=== PATIENT | female | born 1985 | race Caucasian/White ===

== ENCOUNTER 2023-03-31 21:37 | Outpatient (REF) | payer OTHER, BC, SELFPAY ==
--- OUTSIDE RECORDS SUMMARY | 2023-04-01 10:15 | XMS_ITS | CCD ---
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 mass] 29.7 pg Normal 26.0-34.0 [facility] Comment on above: Order Comment: Speci men Type: BLOOD SPECIMEN Ordering Facility: [facility] Address: [address] [place] [address] Performed By: #### 5 7021-8 #### [facility] [place] [id number] [address] [place] [address] 71710 MCHC (RBC) [Mass/Vol] 34.2 g/dL Normal 30.5-36.0 [facility] Comment on above: Order Comment: Speci men Type: BLOOD SPECIMEN Ordering Facility: [facility] Address: [address] Performed By: #### 5 7021-8 #### [facility] CLIA [id number] [address] [place] [address] 32102 MCV (RBC) [Entitic vol] 86.8 fL Normal 80.0-100.0 [facility] Comment on above: Order Comment: Speci men Type: BLOOD SPECIMEN Ordering Facility: [facility] Address: [address] [place] [address] Performed By: #### 5 7021-8 #### [facility] CLIA [id number] [address] [place] [address] 19183 Monocytes (Bld) [#/Vol] 0.39 10*3/uL Normal <0.87 [facility] Comment on above: Order Comment: Speci men Type: BLOOD SPECIMEN Ordering Facility: [facility] Address: [address] [address] Performed By: #### 5 7021-8 #### [facility] CLIA [id number] [address] [place] [address] 70370 Monocytes/100 WBC (Bld) 4.9 % Normal [facility] Comment on above: Order Comment: Speci men Type: BLOOD SPECIMEN Ordering Facility: [facility] Address: [address] [address] Performed By: #### 5 7021-8 #### [facility] CLIA [id number] [address] [place] [address] 78552 Neutrophils (Bld) [#/Vol] 4.81 10*3/uL Normal 1.45-7.50 [facility] Comment on above: Order Comment: Speci men Type: BLOOD SPECIMEN Ordering Facility: [facility] Address: [address] [address] Performed By: #### 5 7021-8 #### [facility] CLIA [id number] [address] [place] [address] 02608 Neutrophils/100 WBC (Bld) 59.9 % Normal [facility] Comment on above: Order Comment: Speci men Type: BLOOD SPECIMEN Ordering Facility: [facility] Address: [address] [address] Performed By: #### 5 7021-8 #### [facility] CLIA [id number] [address] [place] [address] 63036 Nucleated RBC (Bld) [#/Vol] 10*3/uL Normal <0.01 [facility] Comment on above: Order Comment: Speci men Type: BLOOD SPECIMEN Ordering Facility: [facility] Address: [address] Performed By: #### 5 7021-8 #### [facility] CLIA [id number] [address] [place] [address] 97126 Nucleated RBC/100 WBC (Bld) [Ratio] 0.0 /100 WBC Normal [facility] Comment on above: Order Comment: Speci men Type: BLOOD SPECIMEN Ordering Facility: [facility] Address: [address] Performed By: #### 5 7021-8 #### [facility] CLIA [id number] [address] [place] [address] 43505 Platelet mean volume (Bld) [Entitic vol] 9.3 fL Normal 9.0-12.7 [facility] Comment on above: Order Comment: Speci men Type: BLOOD SPECIMEN Ordering Facility: [facility] Address: [address] Performed By: #### 5 7021-8 #### [facility] CLIA [id number] [address] [place] [address] 03920 Platelets (Bld) [#/Vol] 298 10*3/uL Normal 150-400 [facility] Comment on above: Order Comment: Speci men Type: BLOOD SPECIMEN Ordering Facility: [facility] Address: [address] Performed By: #### 5 7021-8 #### [facility] CLIA [id number] [address] [place] [address] RBC (Bld) [#/Vol] 5.08 10*6/uL Normal 3.90-5.20 [facility] Comment on above: Order Comment: Speci men Type: BLOOD SPECIMEN Ordering Facility: [facility] Address: [address] [place] [address] Performed By: #### 5 7021-8 #### [facility] CLIA [id number] [address] [place] [address] 07474 WBC (Bld) [#/Vol] 8.03 10*3/uL Normal 3.70-11.00 [facility] Comment on above: Order Comment: Speci men Type: BLOOD SPECIMEN Ordering Facility: [facility] Address: [address] [place] [address] Performed By: #### 5 7021-8 #### [facility] CLIA [id number] [address] [place] [address] 44300 Comprehensive metabolic 2000 panelon 12-18-2022 Albumin [Mass/Vol] 4.3 g/dL Normal 3.9-4.9 [facility] Comment on above: Order Comment: Speci men Type: BLOOD SPECIMENOrdering Facility: [facility] Address: [address] [place] [address] Performed By: #### 2 4323-8 ####[facility] [id number] [place] [address] ALP [Catalytic activity/Vol] 101 U/L Normal 34-123 [facility] Comment on above: Order Comment: Speci men Type: BLOOD SPECIMENOrdering Facility: [facility] Address: [address] [place] [address] Performed By: #### 2 4323-8 ####[facility] [id number] [place] [address] ALT [Catalytic activity/Vol] 14 U/L Normal 7-38 [facility] Comment on above: Order Comment: Speci men Type: BLOOD SPECIMENOrdering Facility: [facility] Address: [address] [address] Performed By: #### 2 4323-8 ####[facility] [id number] [place] [address] Anion gap [Moles/Vol] 10 mmol/L Normal 9-18 [facility] Comment on above: Order Comment: Speci men Type: BLOOD SPECIMENOrdering Facility: [facility] Address: [address] [place] [address] Performed By: #### 2 4323-8 ####[facility] [id number] [place] [address] AST [Catalytic activity/Vol] 15 U/L Normal 13-35 [facility] Comment on above: Order Comment: Speci men Type: BLOOD SPECIMENOrdering Facility: [facility] Address: [address] [place] [address] Performed By: #### 2 4323-8 ####[facility] [id number] [place] [address] Bilirubin [Mass/Vol] 0.4 mg/dL Normal 0.2-1.3 [facility] Comment on above: Order Comment: Speci men Type: BLOOD SPECIMENOrdering Facility: [facility] Address: [address] [address] Performed By: #### 2 4323-8 ####[facility] [id number] [place] [address] Calcium [Mass/Vol] 9.2 mg/dL Normal 8.5-10.2 [facility] Comment on above: Order Comment: Speci men Type: BLOOD SPECIMENOrdering Facility: [facility] Address: [address] [place] [address] Performed By: #### 2 4323-8 ####[facility] [id number] [place] [address] Chloride [Moles/Vol] 107 mmol/L High 97-105 [facility] Comment on above: Order Comment: Speci men Type: BLOOD SPECIMENOrdering Facility: [facility] Address: [address] [place] [address] Performed By: #### 2 4323-8 ####[facility] [id number] [place] [address] CO2 [Moles/Vol] 24 mmol/L Normal 22-30 [facility] Comment on above: Order Comment: Speci men Type: BLOOD SPECIMENOrdering Facility: [facility] Address: [address] [place] [address] Performed By: #### 2 4323-8 ####[facility] [id number] [place] [address] Creatinine [Mass/Vol] 0.81 mg/dL Normal 0.58-0.96 [facility] Comment on above: Order Comment: Speci men Type: BLOOD SPECIMENOrdering Facility: [facility] Address: [address] [place] [address] Performed By: #### 2 4323-8 ####[facility] [id number] [place] [address] Creatinine and Glomerular filtration rate.predicted panel (S/P/Bld) 95 mL/min/1.73m??? Normal >=60 [facility] Comment on above: Order Comment: Speci men Type: BLOOD SPECIMENOrdering Facility: [facility] Address: [address] [place] [address] Result Comment: Leora mated Glomerular Filtration Rate (eGFR) is calculated using the 2020 CKD-EPI creatinine equation. This equation utilizes serum creatinine, sex, and age as parameters. The creatinine assay has traceable calibration to isotope dilution-mass spectrometry. Refer to KDIGO guidelines for clinical interpretation. In patients with unstable renal function, e.g. those with acute kidney injury, the eGFR may not accurately reflect actual GFR. Performed By: #### 2 4323-8 ####[facility] [id number] [place] [address] Glucose [Mass/Vol] 85 mg/dL Normal 74-99 [facility] Comment on above: Order Comment: Speci men Type: BLOOD SPECIMENOrdering Facility: [facility] Address: [address] [place] [address] Result Comment: The [place] Diabetes Association (ADA) provides guidance for cutoff values for fasting glucose and random glucose. The ADA defines fasting as no caloric intake for at least 8 hours. Fasting plasma glucose results between 100 to 125 mg/dL indicate increased risk for diabetes (prediabetes). Fasting plasma glucose results greater than or equal to 126 mg/dL meet the criteria for diagnosis of diabetes. In the absence of unequivocal hyperglycemia, results should be confirmed by repeat testing. In a patient with classic symptoms of hyperglycemia or hyperglycemic crisis, random plasma glucose results greater than or equal to 200 mg/dL meet the criteria for diagnosis of diabetes. Reference: Standards of Medical Care in Diabetes 2016, [place] Diabetes Association. Diabetes Care. 2016.39(Suppl 1). Performed By: #### 2 4323-8 ####[facility] [id number] [place] [address] Potassium [Moles/Vol] 4.2 mmol/L Normal 3.7-5.1 [facility] Comment on above: Order Comment: Speci men Type: BLOOD SPECIMENOrdering Facility: [facility] Address: [address] [place] [address] Performed By: #### 2 4323-8 ####[facility] [id number] [place] [address] Protein [Mass/Vol] 6.9 g/dL Normal 6.3-8.0 [facility] Comment on above: Order Comment: Speci men Type: BLOOD SPECIMENOrdering Facility: [facility] Address: [address] [place] [address] Performed By: #### 2 4323-8 ####[facility] [id number] [place] [address] Sodium [Moles/Vol] 141 mmol/L Normal 136-144 [facility] Comment on above: Order Comment: Speci men Type: BLOOD SPECIMENOrdering Facility: [facility] Address: [address] [place] [address] Performed By: #### 2 4323-8 ####[facility] [id number] [place] [address] Urea nitrogen [Mass/Vol] 16 mg/dL Normal 7-21 [facility] Comment on above: Order Comment: Speci men Type: BLOOD SPECIMENOrdering Facility: [facility] Address: [address] [place] [address] Performed By: #### 2 4323-8 ####[facility] [id number] [place] [address] Ferritin SerPl-mCncon 2022 Ferritin [Mass/Vol] 541.0 ng/mL High 14.7-205.1 [facility] Comment on above: Order Comment: Speci men Type: BLOOD SPECIMENOrdering Facility: [facility] Address: [address] [place] [address] Performed By: #### 5 0190-8, 2276-4, 3016-3 ####[facility] [id number] [place] [address] [place]#### 84924-1 ####[facility] [id number] [address] LABCLIA [id number] [place] [address] Folate SerPl-mCncon 12-19-19 Folate [Mass/Vol] ng/mL Normal >4.7 [facility] Comment on above: Order Comment: Speci men Type: BLOOD SPECIMEN Ordering Facility: [facility] Address: [address] [place] [address] Result Comment: A re sult of > 20 ng/mL is not necessarily indicative of a pathologic or treatable condition: it reflects a limitation of the test methodology. Assay reference range: 4.8 to 24.2 ng/mL. Suitable for detection of folate deficiency. Reference: Folate III (Folate III) [package insert V 1.0 Serbian]. [employer], [place], [place]: February 2015. Performed By: #### 2 284-8, 2731-8, 2132-9 #### [facility] CLIA [id number] [address] [place] [address] [place] HbA1c (Bld)on 12-18-2022 Average glucose Estimated from glycated hemoglobin (Bld) [Mass/Vol] 82 mg/dL Normal [facility] Comment on above: Order Comment: Se retana Type: BLOOD SPECIMEN Ordering Facility: [facility] Address: [address] [place] [address] Result Comment: eAG: (Estimated average glucose) is a calculated value from HgbA1c and is digital media representative of the average blood glucose level in the last 2-3 month period. Performed By: #### 5 5454-3 #### [facility] CLIA [id number] [address] [place] [address] [place] HbA1c (Bld) [Mass fraction] 4.5 % Normal 4.3-5.6 [facility] Comment on above: Order Comment: Se retana Type: BLOOD SPECIMEN Ordering Facility: [facility] Address: [address] [place] [address] Result Comment: [place] Diabetes Association guidelines indicate that patients with HgbA1c in the range 5.7-6.4% are at increased risk for development of diabetes, and intervention by lifestyle modification may be beneficial. HgbA1c greater or equal to 6.5% is considered diagnostic of diabetes. Performed By: #### 5 5454-3 #### [facility] CLIA [id number] [address] [place] [address] [place] Insulin SerPl-aCncon 023 Insulin Qn 5.7 u[IU]/mL Normal 3.0-25.0 [facility] Comment on above: Order Comment: Speci men Type: BLOOD SPECIMEN Ordering Facility: [facility] Address: [address] [place] [address] Performed By: #### 2 0448-7 #### [facility] CLIA [id number] [address] [place] [address] [place] Iron and Iron binding capaci ty panelon 12-18-2022 Iron [Mass/Vol] 157 ug/dL Normal 41-186 [facility] Comment on above: Order Comment: Speci men Type: BLOOD SPECIMENOrdering Facility: [facility] Address: [address] Performed By: #### 5 0190-8, 6-4, 3016-3 ####[facility] [id number] [place] [address] [place]#### 94540-5 ####[facility] [id number] [place] [id number] [facility]CLIA [id number] [place] [address] Iron binding capacity [Mass/Vol] 297 ug/dL Normal 232-386 [facility] Comment on above: Order Comment: Speci men Type: BLOOD SPECIMENOrdering Facility: [facility] Address: [address] [place] [address] Performed By: #### 5 0190-8, 6-4, 3016-3 ####[facility] [id number] [place] [address] [place]#### 30355-0 ####[facility] [id number] [place] [id number] [facility]CLIA [id number] [place] [address] Iron/TIBC [Molar ratio] 52.9 % Normal 15.0-57.0 [facility] Comment on above: Order Comment: Speci men Type: BLOOD SPECIMENOrdering Facility: [facility] Address: [address] [place], [place] [address] Performed By: #### 5 0190-8, 6-4, 3016-3 ####[facility] [id number] [place] [address] [place]#### 90742-2 ####[facility] [id number] [address] LABCLIA [id number] [place] [address] Lipid 1996 panelon 3 Cholesterol [Mass/Vol] 200 mg/dL High <200 [facility] Comment on above: Order Comment: Speci men Type: BLOOD SPECIMENOrdering Facility: [facility] Address: [address] [place], [place] [address] Result Comment: <200 mg/dL, Desirable 200-239 mg/dL, Borderline high >239 mg/dL, High Performed By: #### 5 0190-8, 2275-4, 6-3 ####[facility] [id number] [place] [id number] [place]#### 67254-7 ####[facility] [id number] [place] [id number] [facility]CLIA [id number] [place] [address] Cholesterol in HDL [Mass/Vol] 45 mg/dL Normal >39 [facility] Comment on above: Order Comment: Speci men Type: BLOOD SPECIMENOrdering Facility: [facility] Address: [address] [place] [address] Result Comment: 40-5 9 mg/dL, Acceptable >59 mg/dL, High: Negative risk factor for coronary heart disease <40 mg/dL, Low: Positive risk factor for coronary heart disease Performed By: #### 5 0190-8, 6-4, 6-3 ####[facility] [id number] [address] [address] [place]#### 12407-4 ####[facility] [id number] [place] [id number] [facility] LABCLIA [id number] [place] [address] Cholesterol in LDL [Mass/Vol] 140 mg/dL High <100 [facility] Comment on above: Order Comment: Speci men Type: BLOOD SPECIMENOrdering Facility: [facility] Address: [address] [place], [place] [address] Result Comment: <100 mg/dL, Optimal 100-129 mg/dL, Near optimal/above optimal 130-159 mg/dL, Borderline high 160-189 mg/dL, High >189 mg/dL, Very high Secondary prevention optimal LDL Cholesterol levels are recommended to be < 70 mg/dL Performed By: #### 5 0190-8, 6-4, 6-3 ####[facility] [id number] [place] [id number] [place]#### 19380-6 ####[facility] [id number] [place] [id number] [facility] LABCLIA [id number] [place] [address] Cholesterol in LDL/Cholesterol in HDL [Mass ratio] 3.11 {ratio} High <2.54 [facility] Comment on above: Order Comment: Speci men Type: BLOOD SPECIMENOrdering Facility: [facility] Address: [address] [place], [place] [address] Result Comment: Refe josece: 1. National Cholesterol Education Program ATP III Guideline At-A-Glance Quick Desk Reference: National Heart, Lung, and Blood [place]. National Institutes of Health. 2001: NIH Publication No. 01-3305. 2. An International Atherosclerosis Society position paper: global recommendations for the management of dyslipidemia: executive summary, Atherosclerosis. 2014: 232(2):410-413. Performed By: #### 5 0190-8, 2276-4, 3016-3 ####[facility] [id number] [address] [place]#### 92304-2 ####[facility]IA [id number] [address] LABCLIA [id number] [place] [address] Cholesterol in VLDL [Mass/Vol] 15 mg/dL Normal <30 [facility] Comment on above: Order Comment: Speci men Type: BLOOD SPECIMENOrdering Facility: [facility] Address: [address] [place], [place] [address] Performed By: #### 5 0190-8, 6-4, 6-3 ####[facility] [id number] [address] [place]#### 12142-5 ####[facility]IA [id number] [address] LABCLIA [id number] [place] [address] Cholesterol non HDL [Mass/Vol] 155 mg/dL High <130 [facility] Comment on above: Order Comment: Speci men Type: BLOOD SPECIMENOrdering Facility: [facility] Address: [address] [place] [address] Result Comment: <130 mg/dL, Optimal 130-159 mg/dL, Near optimal/above optimal 160-189 mg/dL, Borderline high 190-219 mg/dL, High >219 mg/dL, Very high Secondary prevention optimal non HDL Cholesterol levels are recommended to be <100 mg/dL Performed By: #### 5 0190-8, 6-4, 6-3 ####[facility]IA [id number] [address] [address] [place]#### 43185-8 ####[facility]IA [id number] [address] [facility] LABCLIA [id number] [place] [address] Cholesterol.total/ Cholesterol in HDL [Mass ratio] 4.44 {ratio} Normal <5.10 [facility] Comment on above: Order Comment: Speci men Type: BLOOD SPECIMENOrdering Facility: [facility] Address: [address] [place] [address] Performed By: #### 5 0190-8, 2275-, 3015-3 ####[facility]CLIA [id number] [place] [address] [place]#### 90185-4 ####[facility]IA [id number] [address] [facility] LABCLIA [id number] [place] [address] FASTING TIME 12 hrs Normal [facility] Comment on above: Order Comment: Speci men Type: BLOOD SPECIMENOrdering Facility: [facility] Address: [address] [place] [address] Performed By: #### 5 0190-8, 2275-4, 6-3 ####[facility]IA [id number] [address] [address] [place]#### 58984-0 ####[facility] [id number] [address] [facility] LABCLIA [id number] [place] [address] Triglyceride [Mass/Vol] 74 mg/dL Normal <150 [facility] Comment on above: Order Comment: Speci men Type: BLOOD SPECIMENOrdering Facility: [facility] Address: [address] [place], [place] [address] Result Comment: <150 mg/dL, Normal 150-199 mg/dL, Borderline high 200-499 mg/dL, High >499 mg/dL, Very high Performed By: #### 5 0190-8, 2276-4, 3016-3 ####[facility]CLIA [id number] [place] [address] [place]#### 57148-9 ####[facility]CLIA [id number] [address] LABCLIA [id number] [place] [address] PTH-Intact SerPl-mCncon 09-0 Parathyrin.intact [Mass/Vol] 26 pg/mL Normal 15-65 [facility] Comment on above: Order Comment: Speci men Type: BLOOD SPECIMEN Ordering Facility: [facility] Address: [address] [place] [address] Performed By: #### 2 284-8, 2731-8, 2132-9 #### [facility] CLIA [id number] [address] [place] [address] [place] TSH SerPl-aCncon 12-18-2022 TSH Qn 1.200 m[IU]/L Normal 0.270-4.200 [facility] Comment on above: Order Comment: Speci men Type: BLOOD SPECIMENOrdering Facility: [facility] Address: [address] [place], [place] [address] Result Comment: If t he patient is , TSH reference range varies by gestational period: First Trimester (weeks 9-12): 0.180-2.990 mIU/L Second Trimester: 0.110-3.980 mIU/L Third Trimester: 0.480-4.710 mIU/L Liam Larson et al. A Practical Approach for the Verifications and Determination of Site- and Trimester-Specific Reference Intervals for Thyroid Function tests in . Thyroid, 2019:29:3:412-420. Pritesh Lemus, et al. 2017 Guidelines of the [place] [employer] for the Diagnosis and Management of Thyroid Disease during and the . Thyroid, 2017:27:3:315-389. Performed By: #### 5 0190-8, 2276-4, 3016-3 ####[facility] [id number] [address]#### [address]-1 ####[facility] [id number] [address] LABCLIA [id number] [place] [id number] VITAMIN B1 (THIAMINE), WHOLE BLOODon 12-18-2022 Thiamine (Bld) [Moles/Vol] 214.9 nmol/L High 84.3-213.3 [facility] Comment on above: Order Comment: Speci men Type: BLOOD SPECIMEN Ordering Facility: [facility] Address: [address] [place], [place] [id number] Result Comment: This assay measures the concentration of thiamine diphosphate (TDP), the primary active form of vitamin B1. Approximately 90 percent of vitamin B1 present in whole blood is TDP. Thiamine and thiamine monophosphate, which comprise the remaining 10 percent, are not measured. This test was developed and its performance characteristics determined by [facility] [place] ([facility]). It has not been cleared or approved by the FDA. [facility] is regulated under CLIA as qualified to perform high-complexity testing. This test is used for clinical purposes. It should not be regarded as investigational or for research. Performed By: #### B 1WB #### [facility] CLIA [id number] [place] Vit B12 SerPl-ncon 023 Cobalamin (Vitamin B12) [Mass/Vol] pg/mL High 232-1245 [facility] Comment on above: Order Comment: Speci men Type: BLOOD SPECIMEN Ordering Facility: [facility] Address: [address] [place], [place] [id number] Performed By: #### 2 284-8, 2731-8, 2132-9 #### [facility] CLIA [id number] [place] Coding Summaryon 11-17-2022 Coding Summary HTMLBase 64 PizuenccXTz0uCc+PGhlYW Q+XO1ZQJHsQ20ygIYukH4n J1KGBBdVBebeKUBPKGfZXo MipzNzRD2roKRgRIRv IC8+YX0yJEBnFfzluDTrb4 K4fHE7F88ges3cMOpltNJ7 MWTsTdFcbwfdb0xwiLy7PO cuNmluOyBt NHEknZ65TOB3qK43Xf82aA UgbOKzc5cdmWl2VvVzLNDo LGK0rOduTHceo8YkVNOsR4 5qfPRrv5D8 IZTfjJchtFYwHwGtoFQ5pL 7fATrcniynh6hobgwjJsm7 ma13aOBsd4D6vPP0D5Mzor T8JLPxiJUv GdqemOJJcA3naedox5uwrv ebLhIeUBJnWQq2HLm6RVFi tLjqFbFxKK76YXL7ATZzlo LnO6LvJMGl lXspPuL6g2G3Dm7LC3DESn ztV5DDPQVCSRdqrUH+PC90 xf16U7YhBnmiRow1OQJmEA T1gCY3vT6y CJOyAUipu4P3wHU7Y5Lswj Xqhd1vb3waBSCwXMplY61c tYQwp7N3ORGqtWR2ZNKcpN wdTzFjzB61 Oyc+HPGiyAyvb6XxLvwgg1 fxm0zgrGh8RkduIVMnzgPm wCkhRNI3d3AbEm7eUEVbrS H9sCS9yW0l McGjFzP1RExkB597OkSidW RnVzcwP86iZ3ExqFX+PHRy Dtv6VDFurVxyRN2bG9YpGU RpbmctbGVm lVieDS5pMIDvzebrJNXuxV 5lGLTtX3d0FeIsLnJ6XSij B4DxQEZiwvpzXl76dM7iSm MxDwT7YUez M8XoahG5XXXdfUWmHHjcSO E0Y92je5K1ASHdJXVrBWE3 eDP0qN6njSlrbswkhDEkuT sgdmVydGlj TIimFTulS632TEPugFphDw NvZGluZyBEYXRlOiAgMDgv MDgvMjAyMzwvdGQ+PHRkIH M1xGmhKZVp dGNmZVfrPz5ouHcgvSojJO 4rDGCkzorjHLOnoT7wAIGi rYQayQrpHQ2dJIUccramz8 30OqFyTUX7 PABxgQAnV5XclJ2lQxMdBR DjTYRmZ1EtsSTkUFosU839 AJcmPqA1NKSmumYbF7CbQB FsaWduOiB0 t2W3Aa7Cw1GljxsgZ8FbdZ TtHuXaNenzHUq2X4YjJbxb dHI+PM68OWFsSE01RXs6VY Q8aGqvODhr VTIrW3VxvV9tVvMgNQBmRA RkOyc+PHRhYmxlIHdpZHRo ZUkiWUWdDnUagHofIZ2wRr 9yZGVyLWNv fBnmyWUyQyKik3slATEtHD tqFC2vyVfeJ1XdhEW9GLYe j0p1Xa11R70mU5SpxHX+PG CppGQ4kAB5 dD3bSuLnGsY8JNsbD072Qt KpaSSvVaxag7wlw9qyfAi1 RqN0ATLhraTmtOudAGJ5a6 MsBc24G45i IHdpZHRoPSIxNSUiIHZhbG ffhk7dhZ0zFr9+PGNvbCB3 jYI7vS8kUmUsMnY9XHjnL4 49InRvcCIv Iggiw1qil7fmhLr8UtChYX ZlhbVbhVysVKA9u9VgVd49 I0BatNqtl8JmDkw6jz69fE Zmh0E8fCS4 H6HkQVZvgbpuiSOajSsjIR 7dSFPwjhofBKLjvF4fHKXb K4y5QqUaYbF8CUhbB3Lsvq U8FUEitPNc GBGibQPYbT2zbopoh2ksli ejIjVuDCIeTMa7ULj3CAFj nZfsIlTsWLK9DuI6IJD8gE MvdA0cqEii kpnerN6fPmf+NZM4aNYarI TBBN6sDzrtnCT+PHRkIHN0 aFgqKJrfGNWyyB1qQMTyN4 q7KyQaRkB9 RYodV9KvflK6MBSzmDCdNP HwhESBdT0yfqcpd4tsxhcu PsKrPNLwLId0RLs5TFRsiV duOiBsZWZ0 DjZ3CYK8rZVdiL7vuHqqcz gyiL9jUou+QmlydGggRGF0 JQg4J0InShl6AIGuhXisZL 0ncGFkZGlu Qv3kyTkagWrqQG8pBCHnub aex119OuIco7cpDSZyiUNh OKqsQFH5N15mc1E1QRWsZW LvRYA5jKD3 bD6ggFygelnhyTCmiKhpdc DqcQwxBDvqQThsH070FWVg iGmmMyLjWTu7O3ElBbn8SW BatBekVX3k oCIfGEnrZo1usEhzwGdqBW 8uRENmwlhoe587EjKgj2ho WWQmzDEbJTkzRAI0J18yt0 E7XDOhROMw ZJM3mOE3mH8ywRofzijtzJ VmdDsgdmVydGljYWwtYWxp H935SCToyTqtSoIviNl8G3 IsPts7PPQe rXorMP2apIHtVPvmVr2cnL fyyXroKJ1bLCCxppfoi273 AxRzh7zuDMHdiCLaZOibVT W5D39pj5H3 HFOoMFLvUVE3pWO9eQ4qkC lnbjogbGVmdDsgdmVydGlj ZVdkISlvA747HSKbiYeoAo BhdGllbnQg UZlbLHi2V5JlWzmplUT+PC 76REZjPS93aDTgqMGja7qe jLa6VrGcPRDhMND2jQbsNW bbo0VdSFJz M97jyBFfg9V5ODSjxFozhT HyVgMarSK9cQ1nMJlnfzdw v8aoooapJucdv5ufvj18iD 30H74pBOcp ZHRoPSIzMCUiIHZhbGlnbj 7fyJ6yAg7+OAMxdQS5eKU1 hD5cYOOlQqE1ZJfbS835Jy RvcCIvPjxj l8bnr0wfwUi9JwM6HIMlmc IbuVjfYEK4i9MrKl72F95p IHdpZHRoPSIyMCUiIHZhbG bwko3zjA5d Ii8+RWNmtEH3rOX9pQ3uLq ZiWsL9EBafZ673VqMycCZu NtnuE57uY9TadWP+PHRyPj j7NONyiPul BV2krNJzRWxcWh4vRLF8Ta WmZpIrGFuiV1JyBAQqpvjp pqvpgAP2VQGgBOWtvL74Pz 9udDogMTBw oBJRwP9rlgsxc7stujigNj QvBOXcUUa9VJf2XYOyzLgh OwZnWNM0HvC4CQX9eOCpsV 1hbGlnbjog eM6yW2PaSXSwqcfzRx11gD 5jBoAlTfA7MUwhBuq+QkVO TyMPBIOGHLLBKJFRF4S1A0 DtNla7MPOv nOlpRC3ilXSlRAbwIr8uwW gxqXreWK0uHHSjshyoESOl wP3aDHBvaUGegNknYV3aRL Jqcnell956 VgWgDUK6WHVpgVRhP6TxdF 2wVxInXPCnRBZuA0CydMPb GNxnK419OUkjNqR9QCVsfu UjO0EeCHOx nTprBkW8u9D9Rh6bZk6nHL 8nNBk6FZ22SJ23bSKhj4S7 uMJ6G0JcJFAsrkqgsjcdqW I9GOAiGMRp zD08eWPrIArmTs6mt0Z4y4 41BYNlRMNosU79No8fkSlj QPAddMLTrF4ygrnha3qaod ogIzAwMDAw UNf7CVc8IVQowQydDpDoRR I1ZoU0PIP6aIDftB6tgXwr wpfnzF9sXxr+MzggWWVhcn E7W5ZcSxz9 VMCguCseEH3clFAvVKxfMe 9jlJpgmRerAG6qBMLauczc NJDafN9fFCHxtQEtuTckTM 4wNTBpbjtm a578WeGxXUB7ETEeaAIsV1 MqcY1iIeBlZRDfFCBlA9Xb dAUlSMcvS142NHmiJnO2ME YsiwSxP1Nr KNFmkHapMdB3l2S9Jm6ZCI 0ALAR1Z6LuNsv9MUUkiZct UL3uuFFxQQqrIl5eyAzblC jdEA4kKXSp daogTKNkkM5wFICyiYHxpX bxZO3xBLJojjnip813LsPt GVP0AFOhsTNuZ2OwaF8wWt AjMDAwMDAw S3SryDOgVHlgJ848LUohIp Z8CETxioFrE9AgGNOixQuo LqK7f0A0Kn4XqHSuT8JbZ7 m2V8UaZtny dHI+KV22AYNhQG55vVGzuD Ftd9losNk4OiZjFMRdMGD8 nVmcVAhwf6XyQTSaC29uoM Atk8G1SORi jFauvDDaAxXdfFX1xK1mOD pfeprih6dbdnpkNnthi5pl wp69cP14B46uWCctXIOdIX IzMCUiIHZh cIhzkq4keE7pKa6+PGNvbC K6yVU2jS3gBoMuSnC0BKpn U113UfNyvWGkOdlpk8kns6 eumOa3VsYj UONahmPqaCrqKXX3l0BoJx 72H98vMLntHAVrWLCqOMWg ZRCtlDcvye5rfB1yLu0+PC 4of8xkhu06 lW05eSM+VEEsBVF4kDjpGN ioZSDolI8dBRjzSeB1MYLi RmFjtN80sGQiGCanEt8xgE nvvAyzUJ2d HNXkdisiw816TgChh5ryCT DpjXLdSBorOZF3M24xc6D8 WXObPNWaJOV3gCK0oF6jqZ lnbjogbGVm dDsgdmVydGljYWwtYWxpZ2 20BYKmiRpoGpNgxJChR5pq ewTQWK9kRlvtrAU+PHRkIH D3eLmtEQco SWJxxX8zABBiA6t3DeGgOm E4JWysS7XqudE7IMUvqTSu QKUqeEJBhD5cveari1uqcx ogIzAwMDAw IFa1YPr5JQMlzCqhOqOxYM T4RkT8MEF0zXXpdZ2bcIgf fajgiX0hVae+RklOOjwvdG Q+PHRkIHN0 cUkyQAslHVMfzK3uGZNaI4 o1WbBiMkC6GLsaP0IaijZ7 CWQvkNKdFDWewQQMyA3fkv zdk7tpjpsv JcCvDPHqQDt8QEh5MXNlfX moJkOhCSP7RbH5LVS1iAFh rP1fjTiuurbneN8uTqa+TV JOOjwvdGQ+ BLBcJBL5jXxvOEoiKDGdyA 7aIDTnV6g9NiXgDeT6DTej S6RznrJ7YEPjoRVpJOXmlN GQjG9momws b2gedlkfMgFbTGOpPUv2VU p1ONNhhQjnInYhPUH7NqU4 VYX4tWVsqL3uwMveizqqrR 9wOyc+UGF5 ZGV1CO87ZO11K1RhGhelaR FibGU+PHRhYmxlIHdpZHRo WFwcJRUrJzEthBuaBQ9kAf 9yZGVyLWNv bGx (more content not included)... Normal [facility] .Auto Diff 1on 11-12-2022 Auto Jefferson % 10 % Normal -12 [facility] Comment on above: Performed By: #### 1 [id number], 1527231, 1481594, 30202501, [id number] #### [facility] (DEFAULT) [address] [place] [address] Baso Abs# 0.0 x10 Normal 0.0-0.2 [facility] Comment on above: Performed By: #### 1 [id number], 2365918, 8280195, 70162455, [id number] #### [facility] (DEFAULT) [address] [place] [address]8851 Basophils/100 WBC (Bld) 0.7 % Normal 0.2-2.0 [facility] Comment on above: Performed By: #### 1 [id number], 6167372, 5304928, 37686689, [id number] #### [facility] (DEFAULT) [address] [place] [address] Eos Abs# 0.1 x10 Normal 0.0-0.4 [facility] Comment on above: Performed By: #### 1 [id number], 1570020, 3642475, 06872807, [id number] #### [facility] (DEFAULT) [address] [place] [address]11 Eosinophils/100 WBC (Bld) 1.4 % Normal 0.9-4.0 [facility] Comment on above: Performed By: #### 1 [id number], 7175029, 4612793, 03431371, [id number] #### [facility] (DEFAULT) [address] [place] [address] Lymph Abs# 2.4 x10 Normal 1.3-2.9 [facility] Comment on above: Performed By: #### 1 [id number], 6208152, 2044788, 02661987, [id number] #### [facility] (DEFAULT) [address] [place] [address] 04670 Lymphocytes/100 WBC (Bld) 47 % Normal 14-48 [facility] Comment on above: Performed By: #### 1 [id number], 3241654, 8360334, 55526420, [id number] #### [facility] (DEFAULT) [address] [place] [address] 83615 Jefferson Abs# 0.5 x10 Normal 0.0-0.8 [facility] Comment on above: Performed By: #### 1 [id number], 4654158, 4800692, 50369037, [id number] #### [facility] (DEFAULT) [address] [place] [address] Neut Abs# 2.2 x10 Normal 1.5-9.2 [facility] Comment on above: Performed By: #### 1 [id number], 7680423, 1826605, 97108147, 3854097055 #### [facility] (DEFAULT) [address] [place] [address] 85321 Neutrophils/100 WBC (Bld) 41 % Low 44-88 [facility] Comment on above: Performed By: #### 1 [id number], 5271556, 1327123, 52067453, [id number] #### [facility] (DEFAULT) [address] [place] [address] 70813 CBC w/ Auto Diffon 3 Erythrocyte distribution width (RBC) [Ratio] 12.5 % Normal 11.5-15.0 [facility] Comment on above: Performed By: #### 1 [id number], 3312092, 0184535, 61949821, 6589604547 #### [facility] (DEFAULT) [address] [place] [address] Hematocrit (Bld) [Volume fraction] 44.2 % High 33.7-40.4 [facility] Comment on above: Performed By: #### 1 [id number], 6699290, 7966041, 30913954, 3748299245 #### [facility] (DEFAULT) [address] [place] [address] Hemoglobin (Bld) [Mass/Vol] 15.6 g/dL Normal 11.3-15.9 [facility] Comment on above: Performed By: #### 1 277356968, 0324346, 9744859, 88509449, [id number] #### [facility] (DEFAULT) [address] [place] [address] Man Diff? Auto Invalid Interpretation Code [facility] Comment on above: Performed By: #### 1 [id number], 9956947, 9378393, 17646075, [id number] #### [facility] (DEFAULT) [address] [place] [address] 36479 MCH (RBC) [Entitic mass] 31 pg Normal 24-34 [facility] Comment on above: Performed By: #### 1 [id number], 0780174, 1052559, 08949691, 3268077367 #### [facility] (DEFAULT) [address] [place] [address] MCHC (RBC) [Mass/Vol] 35 g/dL Normal 26-37 [facility] Comment on above: Performed By: #### 1 [id number], 7942787, 4763355, 86893456, [id number] #### [facility] (DEFAULT) [address] [place] [address] MCV (RBC) [Entitic vol] 88 fL Normal 81-100 [facility] Comment on above: Performed By: #### 1 [id number], 5577382, 1624366, 36711480, 9190937615 #### [facility] (DEFAULT) [address] [place] [address] Platelet 276 x10 Normal 138-427 [facility] Comment on above: Performed By: #### 1 [id number], 7517978, 6104773, 36391546, 7296227582 #### [facility] (DEFAULT) [address] [place] [address] Platelet mean volume (Bld) [Entitic vol] 8.0 fL Normal 6.3-10.2 [facility] Comment on above: Performed By: #### 1 [id number], 4257405, 4691203, 43410938, [id number] #### [facility] (DEFAULT) [address] [place] [address] RBC 5.05 x10 Normal 3.70-5.30 [facility] Comment on above: Performed By: #### 1 [id number], 6399302, 5686113, 84624050, 0122329986 #### [facility] (DEFAULT) [address] [place] [address] WBC 5.2 x10 Normal 3.5-10.5 [facility] Comment on above: Performed By: #### 1 [id number], 3660679, 9905037, 99956021, [id number] #### [facility] (DEFAULT) [address] [place] [address] 90743 CMP Standardon 11-12-2022 eGFR Non AA >60 Invalid Interpretation Code [facility] Comment on above: Performed By: #### 1 [id number], 9336215, 7863542, 81183345, [id number] #### [facility] (DEFAULT) [address] [place] [address] 69763 eGFR AA >60 Invalid Interpretation Code [facility] Comment on above: Performed By: #### 1 284691178, 6471587, 2745432, 36805318, [id number] #### [facility] (DEFAULT) [address] [place] [address] 13591 Albumin [Mass/Vol] 4.1 g/dL Normal 3.5-5.0 [facility] Comment on above: Performed By: #### 1 [id number], 1436650, 7802378, 65372702, 6698871244 #### [facility] (DEFAULT) [address] [place] [address] 79628 Albumin/Globulin [Mass ratio] 1.2 {ratio} Low 1.4-2.6 [facility] Comment on above: Performed By: #### 1 [id number], 2657858, 6172543, 93197957, 1008696590 #### [facility] (DEFAULT) [address] [place] [address] Alk Phos 89 IU/L Normal 32-91 [facility] Comment on above: Performed By: #### 1 [id number], 1913845, 1812520, 63499819, [id number] #### [facility] (DEFAULT) [address] [place] [address] 38313 ALT [Catalytic activity/Vol] 21.0 U/L Normal 14.0-54.0 [facility] Comment on above: Performed By: #### 1 [id number], 5077896, 5526008, 11365811, 2982996747 #### [facility] (DEFAULT) [address] [place] [address] 38510 Anion gap [Moles/Vol] 9.5 mmol/L Normal 5.0-19.0 [facility] Comment on above: Performed By: #### 1 [id number], 5347966, 0756206, 70996622, 6349836434 #### [facility] (DEFAULT) [address] [place] [address] 88204 AST [Catalytic activity/Vol] 21 U/L Normal 15-41 [facility] Comment on above: Performed By: #### 1 201669646, 5619517, 8041405, 62630318, 7766552555 #### [facility] (DEFAULT) [address] [place] [address] 66245 Bili Total 0.3 mg/dL Normal 0.3-1.2 [facility] Comment on above: Performed By: #### 1 512167332, 0637605, 5960125, 08154094, 4591073275 #### [facility] (DEFAULT) [address] [place] [address] 81203 Calcium [Mass/Vol] 8.6 mg/dL Low 8.9-10.3 [facility] Comment on above: Performed By: #### 1 162598555, 6028720, 1411208, 44318825, 6909132236 #### [facility] (DEFAULT) [address] [place] [address] 75525 Chloride [Moles/Vol] 108 mmol/L Normal 101-111 [facility] Comment on above: Performed By: #### 1 [id number], 3812992, 1852811, 14604894, 1243975056 #### [facility] (DEFAULT) [address] [place] [address] 73748 CO2 [Moles/Vol] 27 mmol/L Normal 21-32 [facility] Comment on above: Performed By: #### 1 [id number], 5196218, 1625532, 55225951, 8371193296 #### [facility] (DEFAULT) [address] [place] [address] 61294 Creatinine [Mass/Vol] 0.77 mg/dL Normal 0.60-1.30 [facility] Comment on above: Performed By: #### 1 [id number], 0868879, 9766322, 34134459, 4898526667 #### [facility] (DEFAULT) [address] [place] [address] 30921 Globulin (S) [Mass/Vol] 3.3 g/dL Normal 1.5-4.3 [facility] Comment on above: Performed By: #### 1 [id number], 4942999, 2755966, 93106372, [id number] #### [facility] (DEFAULT) [address] [place] [address] 34158 Glucose [Mass/Vol] 81.0 mg/dL Normal 74.0-118.0 [facility] Comment on above: Performed By: #### 1 388254133, 1164311, 8969206, 08926658, 5149042758 #### [facility] (DEFAULT) [address] [place] [address] 91647 Osmolality 280 mOsm/L Invalid Interpretation Code [facility] Comment on above: Performed By: #### 1 [id number], 7139459, 7767248, 43924811, [id number] #### [facility] (DEFAULT) [address] [place] [address] 99603 Potassium [Moles/Vol] 3.5 mmol/L Low 3.6-5.1 [facility] Comment on above: Performed By: #### 1 512965186, 1285878, 6119608, 31707407, [id number] #### [facility] (DEFAULT) [address] [place] [address] 59069 Protein [Mass/Vol] 7.4 g/dL Normal 6.5-8.1 [facility] Comment on above: Performed By: #### 1 [id number], 5442749, 6184212, 54035649, 3587483316 #### [facility] (DEFAULT) [address] [place] [address] 41508 Sodium [Moles/Vol] 141.0 mmol/L Normal 136.0-144.0 [facility] Comment on above: Performed By: #### 1 445015842, 2957666, 6936794, 10849288, 5675125198 #### [facility] (DEFAULT) [address] [place] [address] 90935 Urea nitrogen [Mass/Vol] 13 mg/dL Normal 8-26 [facility] Comment on above: Performed By: #### 1 [id number], 8233566, 8486018, 87547209, [id number] #### [facility] (DEFAULT) [address] [place] [address] 47585 Urea nitrogen/Creatinin e [Mass ratio] 16.8 mg/mg High 4.6-16.2 [facility] Comment on above: Performed By: #### 1 [id number], 1574186, 9215472, 68671838, [id number] #### [facility] (DEFAULT) [address] [place] [address] Abdomen/Pelvis w/o Contra petrona 11-12-2022 CT Abdomen/Pelvis w/o Contrast CLINICAL HISTORY: Right flank pain. History of urolithiasis. COMPARISON: None available. TECHNIQUE: Multiple contiguous axial images of the abdomen and pelvis were obtained without contrast. Multiplanar reconstructions were acquired at the CT console. All CT scans at this facility use dose modulation, iterative reconstruction, and/or weight based dosing when appropriate to reduce radiation dose to as low as reasonably achievable. FINDINGS: An approximately 9 x 4 mm distal right ureteral calculus is noted at the UVJ, with moderate upstream right hydronephrosis. A 2 punctate calculi are noted within the upper pole of the right kidney, and a few punctate to small nonobstructing calculi are noted predominantly within the mid to upper pole of the left kidney, measuring up to approximately 3 mm. Both unenhanced kidneys and the nearly decompressed urinary bladder are otherwise unremarkable. The gallbladder has been removed. Postoperative changes from previous gastric surgery are otherwise unremarkable. The unenhanced liver, pancreas, spleen, adrenal glands, unopacified great vessels, bowel, appendix, uterus, adnexa, and visualized lung bases are unremarkable. Mild rotary levoscoliosis of the thoracolumbar spine is present. IMPRESSION: MODERATELY OBSTRUCTING APPROXIMATELY 9 X 4 MM DISTAL RIGHT URETERAL CALCULUS. A FEW SMALL PREDOMINANTLY MID TO UPPER POLE LEFT RENAL CALCULI. Final Signed (Electronic Signature): Niharika George MD 11/12/22 5:16 pm Technologist: YULISA Mora [facility] ED Clinical Summaryon 2022 ED Clinical Summary [facility] - Emergency Department [address] [place] [id number] ED Clinical Summary PERSON INFORMATION Name: ALLAN OAKES Age: 37 Years Sex: FEMALE : 1985 MRN: Acct#: Visit Reason: Nausea; Flank pain; ABDOMINAL PAIN, COVID + Arrival: 11/12/2022 15:26:14 Discharge: 11/12/2022 17:50:00 LOS: 000 02:24 Check In: 11/12/2022 15:26:14 Checkout:11/12/2022 17:50:00 Address: [address] [place] [id number] PCP: MARIYA HUERTA PROVIDER INFORMATION Provider Role Assigned Unassigned Gloria Murdock [employer]UFA[employer]URING [employer] PROFESSOR Nurse 11/12/2022 15:38:33 Seymour Menon DO ED Provider 11/12/2022 15:40:25 VITALS INFORMATION Vital Sign Triage Latest Temperature Tympanic Temperature Temporal Artery Pulse Rate 89 bpm 89 bpm O2 Sat 98 % 98 % Respiratory Rate 16 br/min 16 br/min Blood Pressure /84 mmHg /84 mmHg MEDICAL INFORMATION Medications Given: Medication Dose Route ketorolac 30 mg IV Push ondansetron 4 mg IV Push Sodium Chloride 0.9% intravenous solution (sodium chloride 0.9% bolus) 1000 mL IV morphine (Morphine IV push) 4 mg IV Push Allergy Information: No known allergies PHYSICIAN DOCUMENTATION DISCHARGE INFORMATION: Discharge Disposition: Home Discharge Location: Home PATIENT EDUCATION INFORMATION Instructions: COVID-19 Frequently Asked Questions (CUSTOM) Follow-Up: With: Address: When: Refugio Sue MD [address] [place] [address] [place], [place] [id number] Within 1 to 2 weeks Comments: Drink plenty of fluids to stay well-hydrated and avoid recurrent kidney stones Follow-up with the urologist in the next 1 to 2 weeks to have your stone examined, please bring that to the office visit Use Tylenol 1000 mg and ibuprofen 800 mg every 8 hours as needed for pain Return if you develop worsening or changing symptoms including fevers, abdominal pain, inability urinate, nausea or vomiting DIAGNOSIS: 1:COVID; 2:Kidney stone; 3:Blood pressure elevated without history of HTN Patient Understands: Yes - Patient/family/caregiv er verbalizes understanding of instructions given Comment: [facility] ED Note-Nursingon 11-12-2022 ED Note-Nursing PT. was admitted to the ED via personal vehicle and walked back to room 9 with spouse. PT. C/O of right lower back pain and nausea that stared yesterday. PT. tested positive for COVID yesterday. Pt. states that she took one Tylenol and 2 Advil at 1200 with no relief. Pt. is A&OX 4. PT. has a steady gait. [facility] ED Patient Summaryon 023 ED Patient Summary [facility] - Emergency Department [address] [place] [id number] PATIENT DISCHARGE INSTRUCTIONS Patient Information Name: ALLAN OAKES Age: 37 Years Date of : 1985 Reason For Visit: Nausea; Flank pain; ABDOMINAL PAIN, COVID + Arrival Time: 11/12/2022 15:26:14 Primary Care Physician: MARIYA HUERTA Attending Physician: Seymour Menon DO Comment: Visit Diagnosis: Diagnoses This Visit Blood pressure elevated without history of HTN (R03.0) COVID (U07.1) Flank pain ([id number]) Kidney stone (N20.0) Nausea ([id number]) The Pharmacy at [facility] is open Wednesday through Wednesday from 9A to 6P and Wednesday and Wednesday from 9A to 5P Prescription Information: If you have been given a prescription for narcotics, seek immediate medical attention if you have any difficulty breathing or any sudden status changes such as confusion and sleepiness. If you or anyone you know is experiencing suicidal thoughts, mental health, alcohol and/or drug addiction problems; contact the [facility] 02/11 Crisis Hotline -Text 6WTMA hx 111658. If you received any narcotics, sedation, or any other medication that causes drowsiness for the next 24 hours, unless otherwise directed: ? Do not drive a car. ? Do not operate machinery such as power tools, lawn mowers, drills, sewing machines, or stoves ? Avoid alcoholic beverages and drugs for allergies, nerves, or sleep ? Do not make important personal or business decisions or sign any legal documents With: Address: When: Refugio Sue MD [address] [place] [address] [place] [address] Within 1 to 2 weeks Comments: Drink plenty of fluids to stay well-hydrated and avoid recurrent kidney stones Follow-up with the urologist in the next 1 to 2 weeks to have your stone examined, please bring that to the office visit Use Tylenol 1000 mg and ibuprofen 800 mg every 8 hours as needed for pain Return if you develop worsening or changing symptoms including fevers, abdominal pain, inability urinate, nausea or vomiting Medication Information: The exam and treatment you received today in the [facility] Emergency Department were for an urgent problem and are not intended as complete care. It is important for you to follow up with a doctor, nurse practitioner, or physician?s academic affairs assistant for ongoing care. If your symptoms become worse or you do not improve as expected and you are unable to reach your usual health care provider, you should return to the Emergency Department, we are available 24 hours a day. For those patients who have received Radiology results, the interpretation of your X-ray as given to you by our Emergency Department physician is only a preliminary report. The Radiologist will review your films and if there is a change in the diagnosis you will be notified by phone. Please make sure you have provided a working phone number so we can reach you if necessary. In the event that you had a lab culture while you were a patient in the Emergency Department, you will be notified by phone if there is a need to change your antibiotic. Please make sure you have provided a working phone number so we can reach you if necessary. [facility] Emergency Department has provided you with a complete list of medications post discharge. Please inform your primary montessori teacher/provider of your visit and for further instruction on these medications. Any specific questions regarding your chronic medications and dosages should be discussed with your primary care physician(s) and/or pharmacist. Medications to Continue That Have Not Changed Other Medications levothyroxine (levothyroxine 50 mcg (0.05 mg) oral tablet) 1 tab(s) Oral every day. phentermine (phentermine 37.5 mg oral tablet) TAKE 1 TABLET BY MOUTH ONCE DAILY. Additional medications on your home medication list not specifically addressed. Please contact the ordering physician if you have questions about these medications. ascorbic acid (Vitamin C) Oral every day. cholecalciferol (Vitamin D3) Oral every day. ethinyl estradiol-levonorgestr el (Ashlyna oral tablet) 1 tab(s) Oral every day. take 1 tablet by mouth once daily. multivitamin, (Classic ) 1 tab(s) Oral every day. zinc sulfate (Zinc) Oral every day. Visit Information Allergies: Substance Reaction Symptoms Type Comments No known allergies Drug Vital Signs: Vitals and Measurements this Visit (last charted value for your 11/12/2022 visit) Vital Signs This Visit Peripheral Pulse Rate: 89 bpm Respiratory Rate: 16 br/min Systolic Blood Pressure: 121 mmHg Diastolic Blood Pressure: 84 mmHg SpO2: 98 % Oxygen Therapy: Room air Measurements This Visit Height/Length Dosin.260 cm Height/Length Estimated: 175.260 cm Weight Dosin.630 kg Weight Estimated: 91.630 (more content not included)... Normal [facility] Extra Redon 11-12-2022 Tube Collected Yes Invalid Interpretation Code [facility] Comment on above: Performed By: #### 1 [id number], [id number], [id number] #### [facility] (DEFAULT) [address] [place] [address] 71978 Lipaseon 11-12-2022 Lipase Level 40.0 IU/L Normal 22.0-51.0 [facility] Comment on above: Performed By: #### 1 [id number], [id number], [id number], [id number], [id number] #### [facility] (DEFAULT) [address] [place] [address] 53580 Test Urine 1on U Preg Negative [facility] Comment on above: Performed By: #### 2 [id number], [id number], [id number] #### [facility] (DEFAULT) [address] [place] [address] 82041 U Preg Internal Control Pass [facility] Comment on above: Performed By: #### 2 [id number], [id number], [id number] #### [facility] (DEFAULT) [address] [place] [address] 24501 UA [id number] 11-12-2022 UA Bacteria 1+ [facility] Comment on above: Order Comment: Urina lysis Microscopic order added on by Discern Expert Rules system. Performed By: #### 2 [id number], [id number], [id number] #### [facility] (DEFAULT) [address] [place] [address] 01372 UA RBC >50 [facility] Comment on above: Order Comment: Urina lysis Microscopic order added on by Discern Expert Rules system. Performed By: #### 2 [id number], [id number], [id number] #### [facility] (DEFAULT) [address] [place] [address] UA Squam Epi Few Normal [facility] Comment on above: Order Comment: Urina lysis Microscopic order added on by CEINT Expert Rules system. Performed By: #### 2 [id number], [id number], [id number] #### [facility] (DEFAULT) [address] [place] [address] UA WBC 0-2 [facility] Comment on above: Order Comment: Urina lysis Microscopic order added on by CEINT Expert Rules system. Performed By: #### 2 [id number], [id number], [id number] #### [facility] (DEFAULT) [address] [place] [address] UA w Micro, if Ind Standardo n 11-12-2022 Color (U) Yellow [facility] Comment on above: Performed By: #### 2 [id number], [id number], [id number] #### [facility] (DEFAULT) [address] [place] [address] Glucose (U) [Mass/Vol] Negative [facility] Comment on above: Performed By: #### 2 [id number], [id number], [id number] #### [facility] (DEFAULT) [address] [place] [address] 11308 Ketones Ql (U) Negative [facility] Comment on above: Performed By: #### 2 [id number], [id number], [id number] #### [facility] (DEFAULT) [address] [place] [address] 83517 Micro? Indicated Invalid Interpretation Code [facility] Comment on above: Result Comment: Resu lt created by rule GL_MAGR_ADD_UA_MICRO Performed By: #### 2 [id number], [id number], [id number] #### [facility] (DEFAULT) [address] [place] [address] UA Bilirubin SMALL Abnormal [facility] Comment on above: Performed By: #### 2 [id number], [id number], [id number] #### [facility] (DEFAULT) [address] [place] [address] 44484 UA Blood LARGE Abnormal NEGATIVE [facility] Comment on above: Performed By: #### 2 [id number], [id number], [id number] #### [facility] (DEFAULT) [address] [place] [address] 75034 UA Clarity CLOUDY Abnormal CLEAR [facility] Comment on above: Performed By: #### 2 [id number], [id number], [id number] #### [facility] (DEFAULT) [address] [place] [address] 78295 UA Leuk Est Negative Normal NEGATIVE [facility] Comment on above: Performed By: #### 2 [id number], [id number], [id number] #### [facility] (DEFAULT) [address] [place] [address] 25069 UA Nitrite Negative Normal NEGATIVE [facility] Comment on above: Performed By: #### 2 [id number], [id number], [id number] #### [facility] (DEFAULT) [address] [place] [address] 46310 UA pH 5.5 Normal 5-8 [facility] Comment on above: Performed By: #### 2 [id number], [id number], [id number] #### [facility] (DEFAULT) [address] [place] [address] 06267 UA Protein 100 Abnormal NEGATIVE [facility] Comment on above: Performed By: #### 2 [id number], [id number], [id number] #### [facility] (DEFAULT) [address] [place] [address] 92246 UA Spec Grav >=1.030 Normal 1.001-1.035 [facility] Comment on above: Performed By: #### 2 [id number], [id number], [id number] #### [facility] (DEFAULT) [address] [place] [address] 46861 UA Urobilinogen 1.0 mg/dL Normal 0.2-1.0 [facility] Comment on above: Performed By: #### 2 [id number], [id number], [id number] #### [facility] (DEFAULT) [address] [place] [address] 57880 Urine Source Clean Catch Normal [facility] Comment on above: Performed By: #### 2 [id number], [id number], [id number] #### [facility] (DEFAULT) [address] [place] [address] Breakpoint UA Normal [facility] Comment on above: Performed By: #### 2 [id number], [id number], [id number] #### [facility] (DEFAULT) [address] [place] [address] 38013 PAP ACOG PANEL 2: 30 to 65on 06-06-2021 . . Normal [facility] Comment on above: Result Comment: Perf ormed at: WB Performed By: #### C BC #### [facility] [address] [place] [address] Monica Swathi Age Gdln ACOG Testing 30-65 Normal [facility] Comment on above: Performed By: #### C BC #### [facility] [address] [address] Monica Kauren DIAGNOSIS: Comment Normal [facility] Comment on above: Result Comment: NEGA TIVE FOR INTRAEPITHELIAL LESION OR MALIGNANCY. Performed at: WB Performed By: #### C BC #### [facility] [address] [address] Monica Echevarria HPV Aptima Negative Normal Negative [facility] Comment on above: Result Comment: This nucleic acid amplification test detects fourteen high-risk HPV types (16,18,31,33,35,39,45,51,52,56,58,59,66,68) without differentiation. Performed at: =G Performed By: #### C BC #### [facility] [address] [address] Monica Echevarria Methodology: Comment Normal [facility] Comment on above: Result Comment: This liquid based ThinPrep(R) pap test was screened with the use of an image guided system. Performed at: WB Performed By: #### C BC #### [facility] [address] [address] Monica Swathi Note: Comment Normal [facility] Comment on above: Result Comment: The Pap smear is a screening test designed to aid in the detection of premalignant and malignant conditions of the uterine cervix. It is not a diagnostic procedure and should not be used as the sole means of detecting cervical cancer. Both false-positive and false-negative reports do occur. . Performed at: WB Performed By: #### C BC #### [facility] [address] [address] Monicafrancisco Echevarria Performed by: Comment Normal [facility] Comment on above: Result Comment: [place] [employer] (ASCP) Performed at: WB Performed By: #### C BC #### [facility] [address] [place] [address] Monica Echevarria Specimen adequacy: Comment Normal [facility] Comment on above: Result Comment: Sati sfactory for evaluation. Endocervical and/or squamous metaplastic cells (endocervical component) are present. Performed at: WB Performed By: #### C BC #### [facility] [address] [place] [address] Monica Echevarria VAGINITIS/VAGINOSIS DNA PROB Gerardo 06-04-2021 Emilee species Negative Normal Negative [facility] Comment on above: Performed By: #### V AGINT #### [facility] [address] [place] [address] Dr. Tianna Mercado Gardnerella vaginalis Negative Normal Negative [facility] Comment on above: Performed By: #### V AGINT #### [facility] [address] [place] [address] Dr. Tianna Mercado Trichomonas vaginalis Negative Normal Negative [facility] Comment on above: Performed By: #### V AGINT #### [facility] [address] [place] [address] Dr. Tianna Mercado XR Chest 2 Views*on 05-19-19 22 XR Chest 2 Views* HISTORY: SOB, cough FINDINGS: No acute cardiac or pulmonary disease is identified. No worrisome mass lesions or infiltrates are seen. No pulmonary edema or pneumothorax is present. Cardiac silhouette size is normal. Skeletal structures are unremarkable. Mild thoracolumbar scoliosis. IMPRESSION: No acute disease. 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 Q - CULTURE,URINE,ROUTINEon 03-19-2021 CULTURE, URINE, ROUTINE SEE NOTE Abnormal [facility] Dried Ye[employer] Supervisor Comment on above: Order Comment: Fylet Testing performed at: [employer], [address] [facility], [address] [place], [address], Manager Flight: Arturo Escamilla MD [facility] Collection Date/Time: [facility] Results Received Date/Time: [facility] Reported Date/Time: Result Comment: CULT URE, URINE, ROUTINE Micro Number: [id number] Test Status: Final Specimen Source: Not given Specimen Quality: Adequate Result: 50,000-100,000 CFU/mL of Proteus mirabilis Comment: This organism may show imipenem resistance by mechanisms other than a carbapenemase. Result: 10,000-49,000 CFU/mL of Enterococcus faecalis P.mirabilis E.faecalis INT LIAN INT LIAN AMOX/CLAVULANATE S <=2 * AMPICILLIN S <=2 S <=2 AMP/SULBACTAM S <=2 * CEFAZOLIN NR <=4 2 * CEFEPIME S <=1 * CEFTRIAXONE S <=1 * CIPROFLOXACIN S <=0.25 S <=0.5 ERTAPENEM S <=0.5 * GENTAMICIN S <=1 * IMIPENEM I 2 * LEVOFLOXACIN S <=0.12 S 1 LINEZOLID * S 1 NITROFURANTOIN R 128 S <=16 PIP/TAZOBACTAM S <=4 * TETRACYCLINE * R >=16 TOBRAMYCIN S <=1 * TRIMETHOPRIM/SULFA S <=20 * VANCOMYCIN * S 1 S=Susceptible I=Intermediate R=Resistant * = Not Tested NR = Not Reported NN = See Therapy Comments THERAPY COMMENTS Note 1: For infections other than uncomplicated UTI caused by E. coli, K. pneumoniae or P. mirabilis: Cefazolin is resistant if LIAN > or = 8 mcg/mL. (Distinguishing susceptible versus intermediate for isolates with LIAN < or = 4 mcg/mL requires additional testing.) Note 2: For uncomplicated UTI caused by E. coli, K. pneumoniae or P. mirabilis: Cefazolin is susceptible if LIAN <32 mcg/mL and predicts susceptible to the oral agents cefaclor, cefdinir, cefpodoxime, cefprozil, cefuroxime, cephalexin and loracarbef. Performed By: #### 6 [id number] #### [facility] Default [address] [place] [address] CBC AUTO DIFFon 10-13-2020 BASO # 0.0 103/ul Normal 0.0-0.1 [facility] Comment on above: Performed By: #### C BC #### [facility] [address] [place] [address] Monica Swathi Basophils/100 WBC (Bld) 0.3 % Normal 0.2-2.0 [facility] Comment on above: Performed By: #### C BC #### [facility] [address] [place] [address] Monica Swathi EO # 0.1 103/ul Normal 0.0-0.7 [facility] Comment on above: Performed By: #### C BC #### [facility] [address] [place] [address] Monica Swathi Eosinophils/100 WBC (Bld) 1.0 % Normal 0.9-7.0 [facility] Comment on above: Performed By: #### C BC #### [facility] [address] [place] [address] Monica Swathi Erythrocyte distribution width (RBC) [Ratio] 13.4 % Normal 11.0-15.0 [facility] Comment on above: Performed By: #### C BC #### [facility] [address] [place], [place] [address] Monica Swathi Hematocrit (Bld) [Volume fraction] 31.4 % Critically low 36.0-48.0 [facility] Comment on above: Performed By: #### C BC #### [facility] [address] [place], [place] [address] Monica Swathi Hemoglobin (Bld) [Mass/Vol] 10.8 g/dL Critically low 12.0-16.0 [facility] Comment on above: Performed By: #### C BC #### [facility] [address] [place], [place] [address] Monica Swathi IG # 0.05 10e3/ul Critically high 0.00-0.03 [facility] Comment on above: Performed By: #### C BC #### [facility] [address] [place] [address] Monica Swathi IG % 0.4 % Normal 0.0-0.5 [facility] Comment on above: Performed By: #### C BC #### [facility] [address] [place] [address] Monica Swathi LYMPH # 2.8 103/ul Normal 1.2-3.8 [facility] Comment on above: Performed By: #### C BC #### [facility] [address] [place] [address] Monica Swathi Lymphocytes/100 WBC (Bld) 24.4 % Normal 20.5-60.0 [facility] Comment on above: Performed By: #### C BC #### [facility] [address] [place], [place] [address] Monica Swathi MANUAL DIFF REQ NO Normal [facility] Comment on above: Performed By: #### C BC #### [facility] [address] [place], [place] [id number] Monica Swathi MCH (RBC) [Entitic mass] 30.3 pg Normal 26.7-34.0 [facility] Comment on above: Performed By: #### C BC #### [facility] [address] [place] [address] Monica Swathi MCHC (RBC) [Mass/Vol] 34.4 g/dL Normal 29.9-35.2 [facility] Comment on above: Performed By: #### C BC #### [facility] [address] [place] [address] Monica Swathi MCV (RBC) [Entitic vol] 88.2 fL Normal 81.0-99.0 [facility] Comment on above: Performed By: #### C BC #### [facility] [address] [place], [place] [address] Monica Echevarria MONO # 0.8 103/ul Normal 0.3-0.8 [facility] Comment on above: Performed By: #### C BC #### [facility] [address] [place], [place] [address] Monica Echevarria Monocytes/100 WBC (Bld) 6.8 % Normal 1.7-12.0 [facility] Comment on above: Performed By: #### C BC #### [facility] [address] [place] [address] Monica Echevarria NEUT # 7.7 103/ul Critically high 1.4-6.[address] [facility] Comment on above: Performed By: #### C BC #### [facility] [address] [place] [address] Monica Echevarria Neutrophils/100 WBC (Bld) 67.1 % Normal 43.0-75.0 [facility] Comment on above: Performed By: #### C BC #### [facility] [address] [place], [place] [address] Monica Echevarria Platelet mean volume (Bld) [Entitic vol] 10.3 fL Normal 9.5-13.5 [facility] Comment on above: Performed By: #### C BC #### [facility] [address] [place], [place] [address] Monica Echevarria PLT 165 103/ul Normal 150-450 [facility] Comment on above: Performed By: #### C BC #### [facility] [address] [place], [place] [address] Monica Swathi RBC 3.56 106/ul Critically low 4.20-5.[address] [facility] Comment on above: Performed By: #### C BC #### [facility] [address] [place], [place] [address] Monica Swathi WBC 11.5 103/ul Critically high 4.0-11.0 [facility] Comment on above: Performed By: #### C BC #### [facility] [address] [place], [place] [address] Monica Echevarria ASYMPTOMATIC COVID-19 ANTIGE Non 10-11-2020 EUA Statement SEE BELOW Normal [facility] Comment on above: Result Comment: This test has not been FDA cleared or approved, but has been authorized by the FDA under an Emergency Use Authorization (EUA) for use by authorized laboratories certified under CLIA that meet the requirements to perform moderate or high complexity testing. This test has been authorized only for the detection of proteins from SARS-CoV-2, not for any other viruses or pathogens. The emergency use of this test is authorized for the duration of the declaration that circumstances exist justifying the authorization of emergency use of in vitro diagnostic tests for detection and/or diagnosis of Covid-19 under section 564(b)(1) of the Act, 21 U.S.C. 360bbb-3(b)(1), unless the declaration is terminated or authorization is revoked sooner. Performed By: #### C BC #### [facility] [address] [place] [address] Monica Echevarria SARS-CoV-2 (COVID-19) RNA ALBERTO+probe Ql (Unsp spec) Negative Normal NEGATIVE [facility] Comment on above: Result Comment: Nega tive results are presumptive. They do not preclude infection and should not be used as the sole basis for treatment decisions. Additional confirmatory testing by a molecular method should be considered. Performed By: #### C BC #### [facility] [address] [place] [address] Monica Echevarria CBC AUTO DIFFon 10-11-2020 BASO # 0.0 103/ul Normal 0.0-0.1 [facility] Comment on above: Performed By: #### C BC #### [facility] [address] [place], [place] [address] Monica Echevarria Basophils/100 WBC (Bld) 0.2 % Normal 0.2-2.0 [facility] Comment on above: Performed By: #### C BC #### [facility] [address] [place], [place] [address] Monica Swathi EO # 0.1 103/ul Normal 0.0-0.7 [facility] Comment on above: Performed By: #### C BC #### [facility] [address] [place] [address] Monica Swathi Eosinophils/100 WBC (Bld) 0.6 % Critically low 0.9-7.0 [facility] Comment on above: Performed By: #### C BC #### [facility] [address] [place] [address] Monica Swathi Erythrocyte distribution width (RBC) [Ratio] 13.6 % Normal 11.0-15.0 [facility] Comment on above: Performed By: #### C BC #### [facility] [address] [place] [address] Monica Swathi Hematocrit (Bld) [Volume fraction] 39.3 % Normal 36.0-48.0 [facility] Comment on above: Performed By: #### C BC #### [facility] [address] [place] [address] Monica Swathi Hemoglobin (Bld) [Mass/Vol] 13.6 g/dL Normal 12.0-16.0 [facility] Comment on above: Performed By: #### C BC #### [facility] [address] [place] [address] Monica Swathi IG # 0.05 10e3/ul Critically high 0.00-0.03 [facility] Comment on above: Performed By: #### C BC #### [facility] [address] [place] [address] Monica Swathi IG % 0.5 % Normal 0.0-0.5 [facility] Comment on above: Performed By: #### C BC #### [facility] [address] [place] [address] Monica Swathi LYMPH # 2.3 103/ul Normal 1.2-3.8 [facility] Comment on above: Performed By: #### C BC #### [facility] [address] [place] [address] Monica Swathi Lymphocytes/100 WBC (Bld) 24.6 % Normal 20.5-60.0 [facility] Comment on above: Performed By: #### C BC #### [facility] [address] [place], [place] [id number] Monicafrancisco Echevarria MANUAL DIFF REQ NO Normal [facility] Comment on above: Performed By: #### C BC #### [facility] [address] [place], [place] [id number] Monicafrancisco Echevarria MCH (RBC) [Entitic mass] 30.4 pg Normal 26.7-34.0 [facility] Comment on above: Performed By: #### C BC #### [facility] [address] [place] [address] Monicafrancisco Echevarria MCHC (RBC) [Mass/Vol] 34.6 g/dL Normal 29.9-35.2 [facility] Comment on above: Performed By: #### C BC #### [facility] [address] [place] [address] Monicafrancisco Kauren MCV (RBC) [Entitic vol] 87.9 fL Normal 81.0-99.0 [facility] Comment on above: Performed By: #### C BC #### [facility] [address] [place], [place] [id number] Monica Swathi MONO # 0.7 103/ul Normal 0.3-0.8 [facility] Comment on above: Performed By: #### C BC #### [facility] [address] [place] [address] Monicafrancisco Kauren Monocytes/100 WBC (Bld) 7.8 % Normal 1.7-12.0 [facility] Comment on above: Performed By: #### C BC #### [facility] [address] [place], [place] [id number] Monica Swathi NEUT # 6.3 103/ul Normal 1.4-6.5 [facility] Comment on above: Performed By: #### C BC #### [facility] [address] [place], [place] [id number] Monica Swathi Neutrophils/100 WBC (Bld) 66.3 % Normal 43.0-75.0 [facility] Comment on above: Performed By: #### C BC #### [facility] [address] [id number] Monicafrancisco Echevarria Platelet mean volume (Bld) [Entitic vol] 10.2 fL Normal 9.5-13.5 [facility] Comment on above: Performed By: #### C BC #### [facility] [address] [address] Monica Swathi PLT 205 103/ul Normal 150-450 [facility] Comment on above: Performed By: #### C BC #### [facility] [address] [address] Monica Swathi RBC 4.47 106/ul Normal 4.20-5.40 [facility] Comment on above: Performed By: #### C BC #### [facility] [address] [address] Monica Swathi WBC 9.5 103/ul Normal 4.0-11.0 [facility] Comment on above: Performed By: #### C BC #### [facility] [address] [place] [address] Monica Swathi DRUG SCREEN RAPID (URINE)on 10-11-2020 AMP Negative Normal NEGATIVE [facility] Comment on above: Performed By: #### D RUGRPD #### [facility] [address] [place] [address] Monica Swathi BAR Negative Normal NEGATIVE [facility] Comment on above: Performed By: #### D RUGRPD #### [facility] [address] [place] [address] Monica Swathi BUP Negative Normal NEGATIVE [facility] Comment on above: Performed By: #### D RUGRPD #### [facility] [address] [place], [place] [id number] Monica Swathi BZO Negative Normal NEGATIVE [facility] Comment on above: Performed By: #### D RUGRPD #### [facility] [address] [place] [address] Monica Swathi KHANH Negative Normal NEGATIVE [facility] Comment on above: Performed By: #### D RUGRPD #### [facility] [address] [place] [address] Monica Swathi CUT-OFFS SEE BELOW Normal [facility] Comment on above: Result Comment: AMP (Amphetamine): 500ng/mL, BAR (Barbituates): 200 ng/mL, BZO (Benzodiazepines): 150 ng/mL, BUP (Buprenorphine): 10 ng/mL, KHANH (Cocaine): 150 ng/mL, mAMP (Methamphetamine): 500 ng/mL, MTD (Methadone): 200 ng/mL, OPI (Opiates): 100 ng/mL, OXY (Oxycodone): 100 ng/mL, PCP (Phencyclidine): 25 ng/mL, PPX (Propoxyphene): 300 ng/mL, THC (Cannabinoids): 50 ng/mL, TCA (Trycyclic Antidepressants): 300 ng/mL Performed By: #### D RUGRPD #### [facility] [address] [place] [address] Monica Swathi DRUG CUT HEADER DRUG CLASS TEST SYST EM CUT-OFF CONCENTRATIONS ARE FOLLOWS: Normal [facility] Comment on above: Performed By: #### D RUGRPD #### [facility] [address] [place] [address] Monica Swathi mAMP Negative Normal NEGATIVE [facility] Comment on above: Performed By: #### D RUGRPD #### [facility] [address] [place] [address] Monica Swathi MTD Negative Normal NEGATIVE [facility] Comment on above: Performed By: #### D RUGRPD #### [facility] [address] [place] [address] Monica Swathi OPI Negative Normal NEGATIVE [facility] Comment on above: Performed By: #### D RUGRPD #### [facility] [address] [place] [address] Monica Swathi OXY Negative Normal NEGATIVE [facility] Comment on above: Performed By: #### D RUGRPD #### [facility] [address] [place] [address] Monica Swathi PCP Negative Normal NEGATIVE [facility] Comment on above: Performed By: #### D RUGRPD #### [facility] [address] [place] [address] Monica Echevarria PPX Negative Normal NEGATIVE [facility] Comment on above: Performed By: #### D RUGRPD #### [facility] [address] [place] [address] Monica Echevarria TCA Negative Normal NEGATIVE [facility] Comment on above: Performed By: #### D RUGRPD #### [facility] [address] [place] [address] Monica Echevarria THC Negative Normal NEGATIVE [facility] Comment on above: Performed By: #### D RUGRPD #### [facility] [address] [place] [address] Monica Echevarria TYPE AND SCREENon 10-11-2020 TYPE AND SCREEN Antibody Screen NEGATIVE Blood Bank Notes completed by jan ABO Rh Typing O Rh Positive Blood Bank Notes completed by jan Mora [facility] Comment on above: Performed By: #### C BC #### [facility] [address] [place] [address] Monica Echevarria US PREG BIOPHY W NON STRESSo n 10-11-2020 US PREG BIOPHY W NON STRESS EXAMINATION: US PREG BIOPHY W NON STRESS HISTORY: Gestational diabetes mellitus COMPARISON: No relevant comparison available. TECHNIQUE: Ultrasound biophysical profile was performed in the radiology department. non-reactive stress testing was performed by nursing staff in the birthing center. FINDINGS: BREATHING MOVEMENTS: 2.0 GROSS BODY MOVEMENTS: 2.0 TONE: 2.0 QUALITATIVE AMNIOTIC FLUID VOLUME: 0.0 PRESENTATION: Cephalic HEART RATE: 146.7 bpm AMNIOTIC FLUID VOLUME: 3.7 cm GESTATIONAL AGE: 37 weeks 4 days IMPRESSION: Total biophysical profile score: 6.0 Electronically authenticated by: NIHARIKA FUENTES Date: 2020-10-11 09:43 Normal [facility] UA (CLEAN/CATCH) CHOIR SINGER/MICRO I F IND.on 10-07-2020 Bilirubin Ql (U) Negative Normal NEGATIVE [facility] Comment on above: Performed By: #### U ACSIND, UMICRO #### [facility] [address] [place] [address] Monica Echevarria Clarity (U) CLEAR Normal CLEAR [facility] Comment on above: Performed By: #### U ACSNIGEL UMICRO #### [facility] [address] [address] Monica Swathi Color (U) LT. YELLOW Normal YELLOW [facility] Comment on above: Performed By: #### U ACSNIGEL UMICRO #### [facility] [address] [place] [address] Monica Swathi Glucose Ql (U) Negative Normal NEGATIVE [facility] Comment on above: Performed By: #### U ACSNIGEL UMICRO #### [facility] [address] [place] [address] Monica Swathi Hemoglobin Ql (U) MODERATE Abnormal NEGATIVE [facility] Comment on above: Performed By: #### U ACSNIGEL UMICRO #### [facility] [address] [place] [address] Monica Swathi Ketones Ql (U) Negative Normal NEGATIVE [facility] Comment on above: Performed By: #### U FELECIA YANCEYICRO #### [facility] [address] [place] [address] Monica Swathi LEUKOCYTES Negative Normal NEGATIVE [facility] Comment on above: Performed By: #### U FELECIA YANCEYICRO #### [facility] [address] [place] [address] Monica Swathi Nitrite Ql (U) Negative Normal NEGATIVE [facility] Comment on above: Performed By: #### U ACSFELECIA MANNINGICRO #### [facility] [address] [place] [address] Monica Swathi pH (U) 6.0 [pH] Normal 5-9 [facility] Comment on above: Performed By: #### U NAYE UMICRO #### [facility] [address] [place] [address] Monica Swathi SPEC GRAVITY <=1.005 Abnormal 1.005-<=1.025 [facility] Comment on above: Performed By: #### U ACSFELECIA MANNINGICRO #### [facility] [address] [place] [address] Monica Swathi UA PROTEIN Negative Normal NEGATIVE/ TRACE [facility] Comment on above: Performed By: #### U ACSNIGEL UMICRO #### [facility] [address] [place] [address] Monica Echevarria UR MICRO IND INDICATED Normal [facility] Comment on above: Performed By: #### U ACSNIGEL, UMICRO #### [facility] [address] [place] [address] Monica Echevarria Urobilinogen Qn (U) 0.2 {Joaquin'U}/dL Normal 0.2 - 1.0 [facility] Comment on above: Performed By: #### U ACSNIGEL UMICRO #### [facility] [address] [place] [address] Monica Echevarria URINE MICROSCOPIC ONLYon BACTERIA TRACE Abnormal NONE SEEN [facility] Comment on above: Performed By: #### U ACSNIGEL UMICRO #### [facility] [address] [place] [address] Monica Echevarria Bacteria identified Cx Nom (U) NOT INDICATED Normal [facility] Comment on above: Performed By: #### U ACSNIGEL UMICRO #### [facility] [address] [place] [address] Monica Echevarria CAST NONE SEEN Normal NONE SEEN [facility] Comment on above: Performed By: #### U ACSNIGEL, UMICRO #### [facility] [address] [place] [address] Monicafrancisco Echevarria Crystals LM Nom (Urine sed) NONE SEEN Normal NONE SEEN [facility] Comment on above: Performed By: #### U ACSNIGEL, UMICRO #### [facility] [address] [place] [address] Monicafrancisco Echevarria Epithelial cells LM Ql (Urine sed) RARE Normal NONE SEEN /RARE [facility] Comment on above: Performed By: #### U ACSNIGEL, UMICRO #### [facility] [address] [place] [address] Moniac Swathi MUCOUS NONE SEEN Normal NONE SEEN [facility] Comment on above: Performed By: #### U ACSNIGEL UMICRO #### [facility] [address] [place], [place] [address] Monica Echevarria RBC 2-5 Abnormal 0-2 [facility] Comment on above: Performed By: #### U MALIA YANCEY #### [facility] [address] [place], [place] [address] Monica Echevarria WBC NONE SEEN Normal NONE SEEN [facility] Comment on above: Performed By: #### U MALIA YANCEY #### [facility] [address] [place], [place] [address] Monica Echevarria US PREG BIOPHY W NON STRESSo n 10-07-2020 US PREG BIOPHY W NON STRESS EXAMINATION: US PREG BIOPHY W NON STRESS HISTORY: Gestational diabetes mellitus COMPARISON: No relevant comparison available. TECHNIQUE: Ultrasound biophysical profile was performed in the radiology department. non-reactive stress testing was performed by nursing staff in the birthing center. FINDINGS: BREATHING MOVEMENTS: 2.0 GROSS BODY MOVEMENTS: 2.0 TONE: 2.0 QUALITATIVE AMNIOTIC FLUID VOLUME: 2.0 PRESENTATION: CEPHALIC HEART RATE: 145.2 bpm AMNIOTIC FLUID VOLUME: 7.7 cm GESTATIONAL AGE: 36 weeks 4 days IMPRESSION: Total biophysical profile score: 8.0 Electronically authenticated by: NIHARIKA FUENTES Date: 2020-10-07 10:52 Normal [facility] US PREG GROWTHon 10-07-2020 US PREG GROWTH EXAMINATION: US PREG GROWTH HISTORY: Gestational diabetes mellitus COMPARISON: No relevant comparison available. FINDINGS: Heart Rate: 145.2 bpm Number: 1.0 Position: CEPHALIC Amniotic Fluid Volume: 7.7 cm Maximum Vertical Pocket: 4.0 cm BIOMETRY: BPD: 9.2 cm cm; 37 weeks 2 days HC: 35.3 cmcm; 41 weeks 2 days AC: 37.8 cm cm; 41 weeks 5 days FL: 7.1 cm cm; 36 weeks 4 days EFW: 3983.9 grams; greater than 97th percentile FL/AC: 18.9 FL/BPD: 77.7 HC/AC: 0.9 GESTATIONAL AGE: Age by EDC: 36 weeks 4 days EL by EDC: 10/28/2020 Age by US: 39 weeks, 2 days EL by US: 10/09/2020 IMPRESSION: 1. Single live intrauterine with growth detailed above. 2. Estimated weight is greater than 97th percentile. 3. Amniotic fluid volume is at the 5th percentile. Electronically authenticated by: NIHARIKA FUENTES Date: 2020-10-07 10:55 Normal [facility] GROUP B STREP CULTUREon 09-11 S. agalactiae Ag Ql (Unsp spec) Culture Observations: Group B Strep called to Kamila Jarrett, Dr Nathan's office 10/03/20 @[address] [place] [address] Isolate 1 Streptococcus agalactiae Moderate growth of ORGANISM 1 Streptococcus agalactiae ANTIBIOTIC M.I.C RX STATUS Benzylpenicillin <=0.06 S F Ampicillin <=0.25 S F Cefotaxime <=0.12 S F Ceftriaxone <=0.12 S F Levofloxacin 0.5 S F Inducible Clindamycin Resistance Pos POS F Erythromycin 4 R F Clindamycin <=0.25 R F Linezolid <=2 S F Vancomycin 0.5 S F Tetracycline 4 S F Normal [facility] Comment on above: Performed By: #### C BC #### [facility] [address] [place] [address] Monica Swathi UA (CLEAN/CATCH) CHOIR SINGER/MICRO I F IND.on 10-03-2020 Bilirubin Ql (U) Negative Normal NEGATIVE [facility] Comment on above: Performed By: #### U MICRO, UACSIND #### [facility] [address] [place] [address] Monica Swathi Clarity (U) CLEAR Normal CLEAR [facility] Comment on above: Performed By: #### U MICRO, UACSIND #### [facility] [address] [place] [address] Monica Swathi Color (U) LT. YELLOW Normal YELLOW [facility] Comment on above: Performed By: #### U MICRO, UACSIND #### [facility] [address] [place] [address] Monica Swathi Glucose Ql (U) Negative Normal NEGATIVE [facility] Comment on above: Performed By: #### U MICRO, UACSIND #### [facility] [address] [place], [place] [id number] Monica Swathi Hemoglobin Ql (U) TRACE-INTACT Abnormal NEGATIVE [facility] Comment on above: Performed By: #### U MICRO, UACSIND #### [facility] [address] [place] [address] Monica Swathi Ketones Ql (U) 15 mg/dl Abnormal NEGATIVE [facility] Comment on above: Performed By: #### U MICRO, UACSIND #### [facility] [address] [place] [address] Monica Swathi LEUKOCYTES Negative Normal NEGATIVE [facility] Comment on above: Performed By: #### U MICRO, UACSIND #### [facility] [address] [place] [address] Monica Swathi Nitrite Ql (U) Negative Normal NEGATIVE [facility] Comment on above: Performed By: #### U MICRO, UACSIND #### [facility] [address] [place] [address] Monica Swathi pH (U) 7.0 [pH] Normal 5-9 [facility] Comment on above: Performed By: #### U MICRO, UACSIND #### [facility] [address] [place] [address] Monica Echevarria SPEC GRAVITY 1.015 Normal 1.005-<=1.025 [facility] Comment on above: Performed By: #### U MICRO, UACSIND #### [facility] [address] [place] [address] Monica Swathi UA PROTEIN Negative Normal NEGATIVE/ TRACE [facility] Comment on above: Performed By: #### U MICRO, UACSIND #### [facility] [address] [place] [address] Monica Swathi UR MICRO IND INDICATED Normal [facility] Comment on above: Performed By: #### U MICRO, UACSIND #### [facility] [address] [place] [address] Monica Echevarria Urobilinogen Qn (U) 0.2 {Joaquin'U}/dL Normal 0.2 - 1.0 [facility] Comment on above: Performed By: #### U MICRO, UACSIND #### [facility] [address] [address] Monica Swathi URINE MICROSCOPIC ONLYon BACTERIA NONE SEEN Normal NONE SEEN [facility] Comment on above: Performed By: #### U MICRO, UACSIND #### [facility] [address] [place] [address] Monica Swathi Bacteria identified Cx Nom (U) NOT INDICATED Normal [facility] Comment on above: Performed By: #### U MICRO, UACSIND #### [facility] [address] [place] [address] Monica Swathi CAST NONE SEEN Normal NONE SEEN [facility] Comment on above: Performed By: #### U MICRO, UACSIND #### [facility] [address] [place] [address] Monica Swathi Crystals LM Nom (Urine sed) NONE SEEN Normal NONE SEEN [facility] Comment on above: Performed By: #### U MICRO, UACSIND #### [facility] [address] [place] [address] Monica Swathi Epithelial cells LM Ql (Urine sed) FEW Abnormal NONE SEEN /RARE [facility] Comment on above: Performed By: #### U MICRO, UACSIND #### [facility] [address] [place] [address] Monica Swathi MUCOUS NONE SEEN Normal NONE SEEN [facility] Comment on above: Performed By: #### U MICRO, UACSIND #### [facility] [address] [place] [address] Monica Swathi RBC 2-5 Abnormal 0-2 [facility] Comment on above: Performed By: #### U MICRO, UACSIND #### [facility] [address] [place] [address] Monica Swathi WBC NONE SEEN Normal NONE SEEN [facility] Comment on above: Performed By: #### U MICRO, UACSIND #### [facility] [address] [place] [address] Monica Swathi US PREG BIOPHY W NON STRESSo n 09-26-2020 US PREG BIOPHY W NON STRESS EXAMINATION: US PREG BIOPHY W NON STRESS HISTORY: Gestational diabetes mellitus COMPARISON: No relevant comparison available. TECHNIQUE: Ultrasound biophysical profile was performed in the radiology department. non-reactive stress testing was performed by nursing staff in the birthing center. FINDINGS: BREATHING MOVEMENTS: 2.0 GROSS BODY MOVEMENTS: 2.0 TONE: 2.0 QUALITATIVE AMNIOTIC FLUID VOLUME: 2.0 PRESENTATION: CEPHALIC HEART RATE: 138.2 bpm AMNIOTIC FLUID VOLUME: 10.4 cm GESTATIONAL AGE: 35 weeks 3 days IMPRESSION: Total biophysical profile score: 8.0 Electronically authenticated by: NIHARIKA FUENTES Date: 2020-09-26 10:21 Normal [facility] US PREG BIOPHY W NON STRESSo n 09-20-2020 US PREG BIOPHY W NON STRESS EXAMINATION: US PREG BIOPHY W NON STRESS HISTORY: Gestational diabetes mellitus COMPARISON: No relevant comparison available. TECHNIQUE: Ultrasound biophysical profile was performed in the radiology department. non-reactive stress testing was performed by nursing staff in the birthing center. FINDINGS: BREATHING MOVEMENTS: 2.0 GROSS BODY MOVEMENTS: 2.0 TONE: 2.0 QUALITATIVE AMNIOTIC FLUID VOLUME: 2.0 PRESENTATION: CEPHALIC HEART RATE: 139.9 bpm H.B./min AMNIOTIC FLUID VOLUME: 10.1 cm cm GESTATIONAL AGE: 34 weeks 4 days CONCLUSION: Total biophysical profile score: 8.0 Electronically authenticated by: BUTCH HOLLAND Date: 2020-09-20 15:08 Normal [facility] US PREG AMNIOTIC FLUID VOLUM Gerardo 09-17-2020 US PREG AMNIOTIC FLUID VOLUME EXAMINATION: US PREG AMNIOTIC FLUID VOLUME HISTORY: Oligohydramnios COMPARISON: No relevant comparison available. TECHNIQUE: Limited sonographic examination for amniotic fluid volume FINDINGS: position: Cephalic presentation, longitudinal lie Amniotic fluid volume: 10.5 cm, 5th-95th percentile: 7.2 - 27.8. Largest fluid pocket: 4.9 cm Placenta: Anterior. No retroplacental echogenic abnormality Heart rate: 158 BPM IMPRESSION: Normal amniotic fluid volume Electronically authenticated by: BUTCH HOLLAND Date: 2020-09-17 09:19 Normal [facility] US PREG BIOPHY W NON STRESSo n 09-13-2020 US PREG BIOPHY W NON STRESS EXAMINATION: US PREG BIOPHY W NON STRESS HISTORY: Gestational diabetes mellitus COMPARISON: No relevant comparison available. TECHNIQUE: Ultrasound biophysical profile was performed in the radiology department. non-reactive stress testing was performed by nursing staff in the birthing center. FINDINGS: BREATHING MOVEMENTS: 2.0 GROSS BODY MOVEMENTS: 2.0 TONE: 2.0 QUALITATIVE AMNIOTIC FLUID VOLUME: 2.0 PRESENTATION: Cephalic HEART RATE: 129.8 bpm AMNIOTIC FLUID VOLUME: 8.9 cm GESTATIONAL AGE: 33 weeks 4 days IMPRESSION: 1. Total biophysical profile score: 8.0 2. Amniotic fluid index is just above the 5th percentile. Electronically authenticated by: NIHARIKA FUENTES Date: 2020-09-13 13:44 Normal [facility] US PREG GROWTHon 09-10-2020 US PREG GROWTH EXAMINATION: US PREG GROWTH HISTORY: Gestational diabetes mellitus COMPARISON: No relevant comparison available. FINDINGS: Heart Rate: 144.4 bpm Amniotic Fluid Volume: 10.2 cm, largest pocket 2.8 cm Number: 1.0 Position: Cephalic presentation, longitudinal lie Maximum Vertical Pocket: 2.0 cm cm 2.7 cm cm 2.7 cm cm 2.8 cm cm BIOMETRY: BPD: 8.5 cm cm; 34 weeks 1 days; 85% HC: 31.3 cmcm; 35 weeks 1 days, 79% AC: 33.1 cm cm; 37 weeks 0 days, greater than 97% FL: 6.2 cm cm; 32 weeks 2 days; 30.6 % % EFW: 2655.4 grams, 5 lbs. 14 oz., greater than 97% FL/AC: 18.8 FL/BPD: 73.6 HC/AC: 0.9 GESTATIONAL AGE: Age by EDC: 32 weeks 4 days EL by EDC: 10/28/2020 Age by US: 34 weeks 5 days EL by US: 10/13/2020 IMPRESSION: Large for gestational age. Abdominal circumference and estimated weight greater than the 97th percentile Electronically authenticated by: BUTCH HOLLAND Date: 2020-09-10 09:41 Normal [facility] US PREG BIOPHY W NON STRESSo n 09-06-2020 US PREG BIOPHY W NON STRESS EXAMINATION: US PREG BIOPHY W NON STRESS HISTORY: Gestational diabetes mellitus COMPARISON: No relevant comparison available. TECHNIQUE: Ultrasound biophysical profile was performed in the radiology department. non-reactive stress testing was performed by nursing staff in the birthing center. FINDINGS: BREATHING MOVEMENTS: 2.0 GROSS BODY MOVEMENTS: 2.0 TONE: 2.0 QUALITATIVE AMNIOTIC FLUID VOLUME: 2.0 PRESENTATION: CEPHALIC HEART RATE: 144.4 bpm H.B./min AMNIOTIC FLUID VOLUME: 10.2 cm cm GESTATIONAL AGE: 32 weeks 4 days CONCLUSION: Total biophysical profile score: 8.0 Electronically authenticated by: BUTCH HOLLAND Date: 2020-09-06 20:20 Normal [facility] US KIDNEYSon 07-01-2020 US KIDNEYS EXAM: US KIDNEYS HISTORY: Pain in thoracic spine COMPARISON: None. TECHNIQUE: Grayscale and color imaging was performed. Right kidney measures 12.6 x 5.6 x 6.5 cm. Color-flow is noted. No hydronephrosis is noted. There is an 11 x 4 mm echogenic focus with shadowing in the mid to lower pole of the right kidney consistent with a nonobstructing calculus. Left kidney measures 11.4 x 6.8 x 6 cm. Color-flow is noted. No solid renal cortical masses or hydronephrosis is noted. The bladder appears normal. No masses are noted. No bladder wall thickening is noted. Bladder volume was 653 cc. Bilateral ureteral jets were noted. IMPRESSION: 1. Normal-appearing left kidney. 2. 10 mm nonobstructing right renal calculus. No hydronephrosis. 3. Normal-appearing bladder. Bilateral ureteral jets were noted. Electronically authenticated by: BUTCH CARMEN Date: 2020-07-01 09:57 Normal [facility] BUNon 06-27-2020 Urea nitrogen [Mass/Vol] 11.0 mg/dL Normal 7.0-17.0 [facility] Comment on above: Performed By: #### B UN, CREA #### [facility] [address], [place] [address] Monica Swathi CBC AUTO DIFFon 06-27-2020 BASO # 0.0 103/ul Normal 0.0-0.1 [facility] Comment on above: Performed By: #### C BC #### [facility] [address], [place] [address] Monica Swathi Basophils/100 WBC (Bld) 0.3 % Normal 0.2-2.0 [facility] Comment on above: Performed By: #### C BC #### [facility] [address] [place] [id number] Monica Swathi EO # 0.1 103/ul Normal 0.0-0.7 [facility] Comment on above: Performed By: #### C BC #### [facility] [address] [id number] Monica Swathi Eosinophils/100 WBC (Bld) 0.8 % Critically low 0.9-7.0 [facility] Comment on above: Performed By: #### C BC #### [facility] [address] [place] [address] Monica Swathi Erythrocyte distribution width (RBC) [Ratio] 13.2 % Normal 11.0-15.0 [facility] Comment on above: Performed By: #### C BC #### [facility] [address] [place] [address] Monica Swathi Hematocrit (Bld) [Volume fraction] 34.7 % Critically low 36.0-48.0 [facility] Comment on above: Performed By: #### C BC #### [facility] [address] [place], [place] [phone] Monica Swathi Hemoglobin (Bld) [Mass/Vol] 12.0 g/dL Normal 12.0-16.0 [facility] Comment on above: Performed By: #### C BC #### [facility] [address] [place], [place] [id number] Monica Swathi IG # 0.06 10e3/ul Critically high 0.00-0.03 [facility] Comment on above: Performed By: #### C BC #### [facility] [address] [place] [address] Monica Swathi IG % 0.6 % Critically high 0.0-0.[address] [facility] Comment on above: Performed By: #### C BC #### [facility] [address] [place], [place] [phone] Monica Swathi LYMPH # 2.2 103/ul Normal 1.2-3.8 [facility] Comment on above: Performed By: #### C BC #### [facility] [address] [place], [place] [phone] Monica Swathi Lymphocytes/100 WBC (Bld) 22.8 % Normal 20.5-60.0 [facility] Comment on above: Performed By: #### C BC #### [facility] [address] [place], [place] [phone] Monica Swathi MANUAL DIFF REQ NO Normal [facility] Comment on above: Performed By: #### C BC #### [facility] [address] [place], [place] [phone] Monica Swathi MCH (RBC) [Entitic mass] 31.5 pg Normal 26.7-34.0 [facility] Comment on above: Performed By: #### C BC #### [facility] [address] [place] [address] Monica Swathi MCHC (RBC) [Mass/Vol] 34.6 g/dL Normal 29.9-35.2 [facility] Comment on above: Performed By: #### C BC #### [facility] [address] [place], [place] [id number] Monica Swathi MCV (RBC) [Entitic vol] 91.1 fL Normal 81.0-99.0 [facility] Comment on above: Performed By: #### C BC #### [facility] [address] [place], [place] [id number] Monica Swathi MONO # 0.7 103/ul Normal 0.3-0.8 [facility] Comment on above: Performed By: #### C BC #### [facility] [address] [place], [place] [phone] Monica Swathi Monocytes/100 WBC (Bld) 6.8 % Normal 1.7-12.0 [facility] Comment on above: Performed By: #### C BC #### [facility] [address] [place], [place] [phone] Monica Swathi NEUT # 6.6 103/ul Critically high 1.4-6.[address] [facility] Comment on above: Performed By: #### C BC #### [facility] [address] [place], [place] [phone] Monica Swathi Neutrophils/100 WBC (Bld) 68.7 % Normal 43.0-75.0 [facility] Comment on above: Performed By: #### C BC #### [facility] [address] [place] [address] Monica Echevarria Platelet mean volume (Bld) [Entitic vol] 9.4 fL Critically low 9.5-13.5 [facility] Comment on above: Performed By: #### C BC #### [facility] [address] [place] [address] Monica Echevarria PLT 208 103/ul Normal 150-450 [facility] Comment on above: Performed By: #### C BC #### [facility] [address] [place] [address] Monica Echevarria RBC 3.81 106/ul Critically low 4.20-5.[address] [facility] Comment on above: Performed By: #### C BC #### [facility] [address] [place] [address] Monica Echevarria WBC 9.6 103/ul Normal 4.0-11.0 [facility] Comment on above: Performed By: #### C BC #### [facility] [address] [place], [place] [id number] Monica Echevarria CREATININEon 06-27-2020 Creatinine [Mass/Vol] 0.71 mg/dL Normal 0.52-1.04 [facility] Comment on above: Performed By: #### B UN, CREA #### [facility] [address] [place] [address] Monicafrancisco Echevarria EGFR-AF EGYPTIAN >60 Normal >=60 [facility] Comment on above: Performed By: #### B UN, CREA #### [facility] [address] [place], [place] [id number] Monica Echevarria EGFR-NON AF EGYPTIAN >60 Normal >=60 [facility] Comment on above: Performed By: #### B UN, CREA #### [facility] [address] [place], [place] [id number] Monica Echevarria US PREG PLACENTAon 03-18-202 1 US PREG PLACENTA EXAMINATION: US PREG PLACENTA HISTORY: Traumatic AND/OR non-traumatic injury COMPARISON: No relevant comparison available. FINDINGS: Presentation: Breech heart rate: 135 bpm Placenta: Anterior. 11 x 9 x 7 mm hyperechoic area within the placenta suspected to represent calcifications. No abruption or subchorionic hematoma. Lower margin 6.8 cm from the internal os. Cervix: 4.8 cm in length, closed. Gestational age: 22 weeks, 3 days EL: 10/28/2020 IMPRESSION: 1. Single live intrauterine with anterior placenta without previa. No subchorionic hematoma or abruption. Electronically authenticated by: NIHARIKA FUENTES Date: 2020-06-27 11:48 Normal [facility] Vital Signs Date Time Vital Sign Value Performing Clinician Jacqueline ruth 02-03-2023 11:31-0400 Body height 170.5 cm Nida n Louden [employer].VACCINE CUSTOMER REPRESENTATIVE Work Phone: [facility] 02-03-2023 11:31-0400 Body weight 89 kg Nida n Louden [employer].VACCINE CUSTOMER REPRESENTATIVE Work Phone: [facility] 10-28-2022 07:17-0400 Body weight 94.35 kg Nida n Louden [employer].VACCINE CUSTOMER REPRESENTATIVE Work Phone: [facility] Encounters Encounter Date Encounter Type Care Provider Facility Start: 03-23-2023 Orders Only Nicole Louden [employer].VACCINE CUSTOMER REPRESENTATIVE Work Phone: [facility] Start: 02-06-2023 ambulatory Nicole Louden [employer].VACCINE CUSTOMER REPRESENTATIVE Work Phone: [facility] Comment on above: [facility] ormation on the phentermine Start: 02-03-2023 End: 02-03-2023 ambulatory MARIYA PRATHER Facility:[facility] Start: 02-03-2023 End: 02-03-2023 ambulatory Nicole Louden [employer].VACCINE CUSTOMER REPRESENTATIVE Work Phone: [facility] Surgery Comment on above: Class 1 obesity with body mass index (BMI) of 32.0 to 32.9 in adult, unspecified obesity type, unspecified whether serious comorbidity present (Primary Dx) Start: 02-03-2023 End: 02-03-2023 Telemedicine consultation with patient Nicole Marquis APRN.VACCINE CUSTOMER REPRESENTATIVE Work Phone: [facility] Start: 01-28-2023 Refill Nicole Reshmaen [employer].VACCINE CUSTOMER REPRESENTATIVE Work Phone: General Surgery Comment on above: Med Change Request Start: 12-27-2022 Get Medical Advice Nicole Louden [employer].VACCINE CUSTOMER REPRESENTATIVE Work Phone: [facility] Surgery Comment on above: PRESCRIPTION SENT TO WRONG PHARMACY AND NEEDS TO BE MAIL ORDER! Start: 12-21-2022 Get Medical Advice Nicole Louden [employer].VACCINE CUSTOMER REPRESENTATIVE Work Phone: [facility] Surgery Comment on above: wegvoy sent to pharm acy and not mail order Start: 12-18-2022 End: 12-18-2022 Refill Nicole Reshmaen [employer].VACCINE CUSTOMER REPRESENTATIVE Work Phone: [facility] Surgery Comment on above: Refill Request Start: 11-24-2022 ambulatory Nicole Justiceen [employer].VACCINE CUSTOMER REPRESENTATIVE Work Phone: General Surgery Comment on above: wegvoy script Start: 11-12-2022 End: 11-12-2022 Emergency department patient visit MARIYA HUERTA Facility:[facility] Start: 10-28-2022 End: 10-28-2022 ambulatory Nicole Marquis APRN.VACCINE CUSTOMER REPRESENTATIVE Work Phone: General Surgery Comment on above: Class 1 obesity with body mass index (BMI) of 32.0 to 32.9 in adult, unspecified obesity type, unspecified whether serious comorbidity present (Primary Dx); PCOS (polycystic ovarian syndrome); S/P laparoscopic sleeve gastrectomy Start: 10-28-2022 End: 10-28-2022 Telemedicine consultation with patient Nicole Marquis APRN.VACCINE CUSTOMER REPRESENTATIVE Work Phone: [facility] Start: 06-02-2021 End: 06-02-[address] SUDHA BATES Facility:[facility] Start: 10-11-2020 End: 10-14-2020 Evaluation and management of inpatient DR MARIYA PRATHER Facility:[facility] Start: 10-08-2020 End: 10-08-2020 ambulatory PALAK HASTINGS Facility:[facility] Start: 10-07-2020 End: 10-07-[address] SUDHA BATES Facility:[facility] Start: 10-04-2020 End: 10-04-2020 ambulatory PALAK HASTINGS Facility:[facility] Start: 10-03-2020 End: 10-03-[address] MARIYA PRATHER Facility:[facility] Start: 10-01-2020 End: 10-01-[address] STEPHANY NATHAN Facility:[facility] Start: 10-01-2020 End: 10-01-2020 ambulatory PALAK HASTINGS Facility:[facility] Start: 09-26-2020 End: 09-26-[address] SUDHA BATES Facility:[facility] Start: 09-24-2020 End: 09-24-[address] SUDHA BATES Facility:[facility] Start: 09-20-2020 End: 09-20-[address] SUDHA BATES Facility:[facility] Start: 09-17-2020 End: 09-17-[address] BUTCH HOLLAND Facility:[facility] Start: 09-13-2020 End: 09-13-[address] SUDHA BATES Facility:[facility] Start: 09-06-2020 End: 09-06-2020 ambulatory PALAK HASTINGS Facility:[facility] Start: 07-01-2020 End: 07-02-[address] SUDHA BATES Facility:[facility] Start: 06-27-2020 End: 06-28-[address] SUDHA BATES Facility:[facility] Procedures Date Procedure Procedure Detail Performing Clinician Start: 10-12-2020 Delivery of Products of Conception, External Approach DR SUDHA BATES Start: 10-11-2020 Introduction of Horm one into Female Reproductive, Via Natural or Artificial Opening DR SUDHA BATES Plan of Treatment Date Care Activity Detail Author Start: 01-25-2026 Urine microalbumin profile DTaP,Tdap,Td Vaccine (3 - Td or Tdap) [facility] Start: 12-11-2022 Covid-19 Vaccine ( season) Covid-19 Vaccine () [facility] Start: 12-11-2022 Influenza vaccination C [facility] Start: 10-28-2022 End: 12-28-2022 25-hydroxyvitamin D3 [Mass/volume] in Serum or Plasma VITAMIN D 25 HYDROXY Lab Routine Class 1 obesity with body mass index (BMI) of 32.0 to 32.9 in adult, unspecified obesity type, unspecified whether serious comorbidity present S/P laparoscopic sleeve gastrectomy Expected: 10/28/2022, Expires: 12/28/2022 [facility] Work Phone: Comment on above: Expected: 10/28/2022 , Expires: 12/28/2022 Start: 10-28-2022 End: 12-28-2022 CBC W Auto Differential panel - Blood CBC + DIFF Lab Routine Class 1 obesity with body mass index (BMI) of 32.0 to 32.9 in adult, unspecified obesity type, unspecified whether serious comorbidity present S/P laparoscopic sleeve gastrectomy Expected: 10/28/2022, Expires: 12/28/2022 [facility] Work Phone: Comment on above: Expected: 10/28/2022 , Expires: 12/28/2022 Start: 10-28-2022 End: 12-28-2022 Cobalamin (Vitamin B12) [Mass/volume] in Serum or Plasma VITAMIN B12 BLOOD Lab Routine Class 1 obesity with body mass index (BMI) of 32.0 to 32.9 in adult, unspecified obesity type, unspecified whether serious comorbidity present S/P laparoscopic sleeve gastrectomy Expected: 10/28/2022, Expires: 12/28/2022 [facility] Work Phone: Comment on above: Expected: 10/28/2022 , Expires: 12/28/2022 Start: 10-28-2022 End: 12-28-2022 Comprehensive metabolic 2000 panel - Serum or Plasma COMP METABOLIC PANEL Lab Routine Class 1 obesity with body mass index (BMI) of 32.0 to 32.9 in adult, unspecified obesity type, unspecified whether serious comorbidity present S/P laparoscopic sleeve gastrectomy Expected: 10/28/2022, Expires: 12/28/2022 [facility] Work Phone: Comment on above: Expected: 10/28/2022 , Expires: 12/28/2022 Start: 10-28-2022 End: 12-28-2022 Ferritin [Mass/volume] in Serum or Plasma FERRITIN BLD Lab Routine Class 1 obesity with body mass index (BMI) of 32.0 to 32.9 in adult, unspecified obesity type, unspecified whether serious comorbidity present S/P laparoscopic sleeve gastrectomy Expected: 10/28/2022, Expires: 12/28/2022 [facility] Work Phone: Comment on above: Expected: 10/28/2022 , Expires: 12/28/2022 Start: 10-28-2022 End: 12-28-2022 Folate [Mass/volume] in Serum or Plasma FOLATE SERUM Lab Routine Class 1 obesity with body mass index (BMI) of 32.0 to 32.9 in adult, unspecified obesity type, unspecified whether serious comorbidity present S/P laparoscopic sleeve gastrectomy Expected: 10/28/2022, Expires: 12/28/2022 [facility] Work Phone: Comment on above: Expected: 10/28/2022 , Expires: 12/28/2022 Start: 10-28-2022 End: 12-28-2022 Hemoglobin A1c in Blood HGB A1C Lab Routine Class 1 obesity with body mass index (BMI) of 32.0 to 32.9 in adult, unspecified obesity type, unspecified whether serious comorbidity present S/P laparoscopic sleeve gastrectomy Expected: 10/28/2022, Expires: 12/28/2022 [facility] Work Phone: Comment on above: Expected: 10/28/2022 , Expires: 12/28/2022 Start: 10-28-2022 End: 12-28-2022 Insulin [Units/volume] in Serum or Plasma INSULIN ASSAY BLOOD Lab Routine Class 1 obesity with body mass index (BMI) of 32.0 to 32.9 in adult, unspecified obesity type, unspecified whether serious comorbidity present S/P laparoscopic sleeve gastrectomy Expected: 10/28/2022, Expires: 12/28/2022 [facility] Work Phone: Comment on above: Expected: 10/28/2022 , Expires: 12/28/2022 Start: 10-28-2022 End: 12-28-2022 Iron and Iron binding capacity panel - Serum or Plasma IRON + TIBC Lab Routine Class 1 obesity with body mass index (BMI) of 32.0 to 32.9 in adult, unspecified obesity type, unspecified whether serious comorbidity present S/P laparoscopic sleeve gastrectomy Expected: 10/28/2022, Expires: 12/28/2022 [facility] Work Phone: Comment on above: Expected: 10/28/2022 , Expires: 12/28/2022 Start: 10-28-2022 End: 12-28-2022 Lipid 1996 panel - Serum or Plasma LIPID PANEL BASIC Lab Routine Class 1 obesity with body mass index (BMI) of 32.0 to 32.9 in adult, unspecified obesity type, unspecified whether serious comorbidity present S/P laparoscopic sleeve gastrectomy Expected: 10/28/2022, Expires: 12/28/2022 [facility] Work Phone: Comment on above: Expected: 10/28/2022 , Expires: 12/28/2022 Start: 10-28-2022 End: 12-28-2022 Parathyrin.intact [Mass/volume] in Serum or Plasma PTH INTACT BLD Lab Routine Class 1 obesity with body mass index (BMI) of 32.0 to 32.9 in adult, unspecified obesity type, unspecified whether serious comorbidity present S/P laparoscopic sleeve gastrectomy Expected: 10/28/2022, Expires: 12/28/2022 [facility] Work Phone: Comment on above: Expected: 10/28/2022 , Expires: 12/28/2022 Start: 10-28-2022 End: 12-28-2022 Thyrotropin [Units/volume] in Serum or Plasma TSH BLD Lab Routine Class 1 obesity with body mass index (BMI) of 32.0 to 32.9 in adult, unspecified obesity type, unspecified whether serious comorbidity present S/P laparoscopic sleeve gastrectomy Expected: 10/28/2022, Expires: 12/28/2022 [facility] Work Phone: Comment on above: Expected: 10/28/2022 , Expires: 12/28/2022 Start: 10-28-2022 End: 12-28-2022 VITAMIN B1 (THIAMINE), WHOLE BLOOD VITAMIN B1 (THIAMINE), WHOLE BLOOD Lab Routine Class 1 obesity with body mass index (BMI) of 32.0 to 32.9 in adult, unspecified obesity type, unspecified whether serious comorbidity present S/P laparoscopic sleeve gastrectomy Expected: 10/28/2022, Expires: 12/28/2022 [facility] Work Phone: Comment on above: Expected: 10/28/2022 , Expires: 12/28/2022 Start: 04-12-2022 DEPRESSION ASSESSMENT DEPRESSION ASS ESSMENT [facility] Start: 06-16-2021 COVID-19 VACCINE (3 - Booster for Leidy series) COVID-19 VACCINE (3 - Booster for Leidy series) [facility] Start: 2014 HPV TESTING HPV TESTING [facility] Start: 2014 Screening for malign ant neoplasm of cervix HPV Testing [facility] Start: 2005 PAP TESTING PAP TESTING [facility] Start: 2005 Screening for malign ant neoplasm of cervix Pap Testing [facility] Start: 2003 Urine microalbumin profile [facility] Start: 02-19-2003 Hepatitis B Vaccine (3 of 3 - 3-dose series) Hepatitis B Vaccine (3 of 3 - 3-dose series) [facility] Start: 2002 Annual PCP Team [employer] danyelle Disease Visit Annual PCP Team Chronic Disease Visit [facility] Start: 2002 HEPATITIS C SCREENING HEPATITIS C [facility] Start: 2002 Hepatitis C screening Hepatitis C [facility] Start: 2002 HIV SCREENING HIV SCREENING [facility] Start: 2002 HIV screening HIV Screening [facility] Start: 1984 HEPATITIS B (1 of 3 - 3-dose series) HEPATITIS B (1 of 3 - 3-dose series) [facility] Start: 1984 Hepatitis B Vaccine (1 of 3 - 3-dose series) Hepatitis B Vaccine (1 of 3 - 3-dose series) [facility] Immunizations Immunization Date Immunization Notes Care Provider Evita amaya 01-19-2022 influenza, injectabl e, quadrivalent, preservative free Nicole Marquis APRN.VACCINE CUSTOMER REPRESENTATIVE Work Phone: [facility] Work Phone: 01-19-2022 influenza virus vacc ine, unspecified formulation Nicole Louden [employer] Work Phone: [facility] 03-18-2021 influenza, injectabl e, quadrivalent, preservative free Nicole Louden [employer].[facility] Work Phone: [facility] Work Phone: 02-10-2018 influenza, injectabl e, quadrivalent, contains preservative Nicole Louden [employer].[facility] Work Phone: [facility] Work Phone: 12-17-2016 influenza, injectabl e, quadrivalent, preservative free Nicole Louden [employer].[facility] Work Phone: [facility] 12-17-2016 influenza virus vacc ine, unspecified formulation Nicole Louden [employer].[facility] Work Phone: [facility] 01-26-2016 tetanus toxoid, redu chris diphtheria toxoid, and acellular pertussis vaccine, adsorbed Nicole Louden [employer].[facility] Work Phone: [facility] Work Phone: 01-25-2016 influenza, injectabl e, quadrivalent, preservative free Nicole Louden [employer].[facility] Work Phone: [facility] Work Phone: 03-04-2015 influenza, seasonal, injectable, preservative free Nicole Louden [employer].VACCINE CUSTOMER REPRESENTATIVE Work Phone: [facility] Work Phone: 05-12-2013 influenza, seasonal, injectable Nicole Louden [employer].VACCINE CUSTOMER REPRESENTATIVE Work Phone: [facility] Work Phone: 04-28-2012 influenza virus vacc ine, whole virus Nicole Louden [employer].VACCINE CUSTOMER REPRESENTATIVE Work Phone: [facility] Work Phone: 01-03-2003 TD(adult) unspecifie d formulation Nicole Louden [employer].VACCINE CUSTOMER REPRESENTATIVE Work Phone: [facility] Work Phone: 12-25-2002 hepatitis B vaccine, pediatric or pediatric/adolescent dosage Nicole Louden [employer].VACCINE CUSTOMER REPRESENTATIVE Work Phone: [facility] Work Phone: 12-13-2002 meningococcal polysaccharide vaccine (MPSV4) Nicole Louden [employer].VACCINE CUSTOMER REPRESENTATIVE Work Phone: [facility] Work Phone: 10-08-2002 hepatitis B vaccine, pediatric or pediatric/adolescent dosage Nicole Louden [employer].VACCINE CUSTOMER REPRESENTATIVE Work Phone: [facility] Work Phone: Payers Date Payer Category Payer Unknown [id number] 2021 Unknown [id number] 1984 Unknown [id number] 2.16.84 [id number] 1984 Unknown [id number] 2.16.84 [id number] 1984 Unknown [id number] 2.16.84 [id number] 1984 Unknown [id number] 2.16.84 [id number] 1984 Unknown [id number] 2.16.84 [id number] 1984 Unknown [id number] 2.16.84 [id number] 1984 Unknown [id number] 2.16.84 [id number] 1984 Unknown [id number] 2.16.84 [id number] 1984 Unknown [id number] 2.16.84 [id number] 1984 Unknown [id number] 2.16.84 [id number] 1984 Unknown [id number] 2.16.84 [id number] 1984 Unknown [id number] 2.16.84 [id number] 1984 Unknown [id number] 2.16.84 [id number] 1984 Unknown [id number] 2.16.84 [id number] 1984 Unknown [id number] 2.16.84 [id number] 1984 Unknown [id number] 2.16.84 [id number] 1984 Unknown [id number] 2.16.8 [id number] 1959 Unknown [id number] 1959 Unknown [id number] 1959 Unknown [id number] Social History Date Type Detail Facility Start: [facility]-20-[facility] End: 04-12-2014 History of tobacco use Current smoker [facility] End: 04-12-2014 History of tobacco use Cigarette Smoker [facility] Start: 11-20-2016 End: 10-28-2022 Cigarettes smoked current (pack per day) - Reported 2 [facility] Start: 11-20-2016 Tobacco use and exposure Smoke less tobacco non-user [facility] Start: 10-28-2022 End: 02-10-2023 Alcohol intake Current non-drinker of alcohol (finding) [facility] Start: 10-28-2022 End: 02-10-2023 Tobacco use panel [facility] National Score (1-10 0), lower number is lower risk 71 [facility] Start: 1985 Sex Assigned At Not on file C [facility] Clinical Notes 06-27-2020 to 02-03-2023 Patient Nicole Alberts APRN.CNP - 02/03/2023 11:30 AM EDTPatient Nicole Alberts APRN.CNP - 10/28/2022 7:00 AM EDT Note Date & Type Note Facility 02-03-2023 Note HNO ID: [id number] Author: Nicole Marquis APRN.CNP Service: ? Author Type: Nurse Practitioner Type: Progress Notes Filed: 02/03/2023 10:54 PM Note Text: BMI Obesity Medicine PostOp Follow Up Visit [facility] Visit February 03, 2023 I have communicated my name and active licensure. The patient's identity and physical location were verified at the time of this visit. Either the patient or their legal digital media representative has been informed of the risks and benefits of -- and alternatives to -- treatment through a remote evaluation and consents to proceed with the evaluation remotely. Index Surgery Date of Surgery: 12/17/2016 Surgeon: Luiz Maloney MD Surgical Procedure: Sleeve gastrectomy Pre-surgical weight: 124.7 kg (275 lb) Override Index Surgery Information? No Other Bariatric Surgeries Date of Surgery Surgeon Procedure 12/17/2016 Luiz Maloney MD LAPAROSCOPIC LONGITUDINAL GASTRECTOMY, GASTRIC RESTRICTIVE PROCEDURE Visit: 5 years Today's Visit: BMI 30.61 kg/(m2) Last Visit: Wt: 117 kg (258 lb) BMI: 40.25 kg/(m2) COMPLICATIONS SINCE LAST VISIT?: NONE BEKA: Plan: - Continue with lifestyle modification as discussed - Avoid NSAIDs given increased risk of marginal ulcers (RYGB). - Continue to exercise with goal of 200min per week - Continue to monitor iron panel, calcium, vitamin D, vitamin B1, B12, and C. Would consider checking zinc,copper levels if clinically suspicious. EDUCATION: Encouraged to continue with healthy lifestyle changes and incorporate cardiovascular and resistance training, Discussed weight loss expectations after bariatric and metabolic surgery, Advised PT to avoid NSAIDs, smoking tobacco given increased risk of marginal ulcers, Discussed importance of protein intake as per the RDN note, or Encouraged to take daily vitamin B12, Calcium citrate and vitamin D, and multivitamin due to risk of vitamin and mineral deficiencies after surgeryPt encouraged to continue with positive lifestyle changes and daily/vitamin intake REFERRALS: BMI market research coordinator LABS: Today: See Epic Orders In 12 months: CBC W DIFF, CMP, Vitamin B1, Vitamin B12, Folate, PTH Intact, Vitamin D25OH, Iron/TIBC/Ferritin, Lipids, and HBA1C DISPOSITION: Return 3 month to Post-op follow up/ individual office visit Interval History Last visit was with me in October. Has been off of work more recently. Not drinking as much water. Has not seen market research coordinator yet. Has been having morning headaches. Tries to take tylenol, but occasionally takes Excedrin. Was taking compounded semaglutide previously, now taking Wegovy. Tolerated well. Weight is decreased since last visit. AOM Hx: Was going to a med spa and getting semaglutide injections, but it is costly. Metformin - GI upset Contrave SE- bad dreams, felt like she was in a haze Topiramate took when she was younger for migraines Had kidney stone while . Diet: Increasing water intake Well Shooter consult still pending Exercise:increased Sleep: mild PILAR, not on CPAP Taking required vitamins and minerals: Yes ProCare Calcium: No Multivitamin AND Minerals: 1 per day Iron Supplement: included in multi-vitamin Vitamin B12: included in multivitamin Vitamin D3: included in multi-vitamin Other: N/A Are you attending any Support Groups? Not known Current Outpatient Medications Medication Sig semaglutide, weight loss, (WEGOVY) 1.7 mg/0.75 mL pen injector Inject 0.75 mL subcutaneously one time a week for 28 days. [START ON 03/03/2023] semaglutide, weight loss, (WEGOVY) 2.4 mg/0.75 mL pen injector Inject 0.75 mL subcutaneously one time a week. Phentermine HCl 37.5 mg tablet Take 1 tablet by mouth once daily for 90 days. metFORMIN (GLUCOPHAGE) 500 mg tablet Take 1 tablet by mouth daily with dinner. ondansetron (ZOFRAN) 4 mg tablet Take 1 tablet by mouth every 6 hours as needed. oxyCODONE (ROXICODONE) 5 mg/5 mL oral solution Take 5-10 mL by mouth every 4 hours as needed. acetaminophen (TYLENOL) 500 mg tablet Take 500 mg by mouth every 8 hours as needed. loratadine (CLARITIN) 10 mg tablet Take 10 mg by mouth once daily. L-NORGEST/E.ESTRADIOL-E.ESTRAD (AMETHIA ORAL) Take 1 tablet by mouth once daily. No current facility-administered medications for this visit. Patient Active Problem List Acquired hypothyroidism Intractable chronic migraine without aura and without status migrainosus Anxiety Insulin resistance syndrome Mild obstructive sleep apnea Chronic fatigue Chronic back pain Chronic joint pain Kidney stones Personal history of nicotine dependence Streptococcus B carrier state complicating childbirth Gestational diabetes mellitus in , unspecified control History of oligohydramnios Dorsalgia, unspecified S/P laparoscopic sleeve gastrectomy PCOS (polycystic ovarian syndrome) Resolved Hospital Problems No resolved problems to display. Social History Tobacco Use Smoking (more content not included)... [facility] 02-03-2023 Instructions Nicole Marquis APRN.VACCINE CUSTOMER REPRESENTATIVE - 02/03/2023 11:33 AM EDT Images from the original note were not included. consult to BMI nutrition: I recommend Valerie Hui RD or Julianna Lake RD. Call [phone] to schedule. $99 for 1 year supply - Bariatric Pal Avoid all NSAIDS https://store.[employer]/ products/bariatricpal-multivita gwo-tph-zox-yawjkfqiu-qfxbrc-fo bscription?edqqvla=985502202029 77&selling_plan=7898243948 MANAGING SIDE EFFECTS WITH GLP1's The side effects with these medications are usually the worst 1-3 days after you inject. If For example if you work M-F then I would inject on , so if you have any side effects they will mostly fall on the weekend. Helpful tips for managing nausea Nausea is a common side effect when first starting this medication or with dose increases. Ways to manage it include: Eat bland, low-fat foods, like crackers, toast and rice Eat foods that contain water, like soups and gelatin Avoid lying down after you eat Go outdoors for fresh air Eat more slowly Try injecting in your thigh and doing it at night or with dinner to minimize side effects. Stay at a lower dose if needed and only titrate up when nausea has completely subsided. For constipation: Take colace over the counter 1-2 times daily for constipation. You may add Miralax or dulcolax additionally if needed. Stay hydrated - 64 oz per day. Urine should be clear to light yellow. Increase fiber intake (fruits vegetables)- benefiber, metamucil, garden of life, increase it slowly over time and drink plenty of water with it. Try decreasing milk, cheese, or whey products For reflux: Raise head of you bed 4 to 6 inches Avoiding chocolate, coffee, peppermint, fruit juices, tomatoes, greasy and spicy foods. Avoid alcohol Take Tums, Pepto or Zantac if needed If it persists we can consider adding omeprazole for 1-2 weeks (discuss with me first if taking Zofran or Celexa/Lexapro). You can try stopping when symptoms improve. Belching: Bismuth subsalicylate (Pepto-Bismol) is your best bet for reducing the sulfur smell of your burps (do not use when constipated, will make stool a black color). Simethicone (Gas-X, Mylanta) helps bind gas bubbles together so you have more productive burps when you want to. Beano contains a digestive enzyme that helps break down those lhqu-rp-ugphlj sugars found in carbohydrates, vegetable, and beans. Enzyme lactase (Lactaid, Lactrase, and Dairy Ease) helps people with lactose intolerance digest dairy. Probiotics contain good bacteria that promote healthy digestion. These good bacteria may replace some of the bad bacteria causing that smelly gas byproduct. https://www.[employer]/heal th/xjz-mb-ajx-uco-ka-pznoxc-bur ps#otc-treatments Nutrition tips: 1. Do not skip meals. 2. Use protein shake 1x per day to replace any skipped meals or for breakfast - shakes should have at least 20 grams of protein and contain less than 5 grams of sugar 3. Use the Plate Method of portion control for lunch and dinner 4 oz lean meat (fish, chicken, pork tenderloin, turkey, seafood, eggs/cheese) 1/2 plate non starchy vegetables (salad, greens, cabbage, spinach, brussels sprouts, broccoli, carrots, celery, peppers, green beans, cauliflower) 1/4 plate starch/starchy vegetables (corn, peas, gibbs beans, winter squash, sweet potato, rice, pasta, potato) 4. Physical activity: Increase exercise to goal of 150 -200 minutes per week. Include a mix of cardio and weight resistance. 5. Drink 64 ounces per day of water. You may have 1-2 servings per day of sugar-free beverages. Avoid alcohol. Headaches and blood sugar When the blood sugar falls too low or too rapidly, a patient experiences symptoms such as lightheadedness, weakness, headache, sweating, and change in level of consciousness if the condition is severe enough. Hypoglycemia may occur in patients with Diabetes Mellitus or when a patient fasts for a prolonged period of time. Some patients may have hypoglycemia for other reasons as well. Eating meals at regular intervals, avoiding excessive amounts of simple carbohydrates, and avoiding oversleeping in the morning are important methods to avoid this condition. Some patients need to eat small meals frequently and consume a great proportion of their caloric intake from proteins and fats rather than carbohydrates to fend off hypoglycemic episodes. 10-Point Nutrition Plan for Preventing Hypoglycemia in Post-Bariatric Hypoglycemia. Control portions of carbohydrate - 30 grams/meal, 15 grams/snack. Choose low-glycemic carbohydrates. Avoid high-glycemic carbohydrates. Include (heart-healthy) fats in each meal or snack - 15 grams/meal, 5 grams/snack. Emphasize optimal protein intake. Space meals/snacks 3-4 hours apart. Avoid consuming liquids with meals. Avoid alcohol. Avoid caffeine. Maintain post-bariatric vitamin and mineral intake. https://www.ncbi.nlm.nih.gov/pm c/articles/FEG8655847/ Your Weight Can't Wait https://yourweightcantwait.sg/ Recognizing and treating obesity as a disease 60 Minutes documented in this encounter [facility] 02-03-2023 History of Presen t illness Narrative BMI Obesity Medicine PostOp Follow Up Visit [facility] Visit February 03, 2023 I have communicated my name and active licensure. The patient's identity and physical location were verified at the time of this visit. Either the patient or their legal digital media representative has been informed of the risks and benefits of -- and alternatives to -- treatment through a remote evaluation and consents to proceed with the evaluation remotely. Index Surgery Date of Surgery: 12/17/2016 Surgeon: Luiz Maloney MD Surgical Procedure: Sleeve gastrectomy Pre-surgical weight: 124.7 kg (275 lb) Override Index Surgery Information? No Other Bariatric Surgeries Date of Surgery Surgeon Procedure 12/17/2016 Luiz Maloney MD LAPAROSCOPIC LONGITUDINAL GASTRECTOMY, GASTRIC RESTRICTIVE PROCEDURE Visit: 5 years Today's Visit: BMI 30.61 kg/(m^2) Last Visit: Wt: 117 kg (258 lb) BMI: 40.25 kg/(m^2) COMPLICATIONS SINCE LAST VISIT?: NONE BEKA: Plan: - Continue with lifestyle modification as discussed - Avoid NSAIDs given increased risk of marginal ulcers (RYGB). - Continue to exercise with goal of 200min per week - Continue to monitor iron panel, calcium, vitamin D, vitamin B1, B12, and C. Would consider checking zinc,copper levels if clinically suspicious. EDUCATION: Encouraged to continue with healthy lifestyle changes and incorporate cardiovascular and resistance training, Discussed weight loss expectations after bariatric and metabolic surgery, Advised PT to avoid NSAIDs, smoking tobacco given increased risk of marginal ulcers, Discussed importance of protein intake as per the RDN note, or Encouraged to take daily vitamin B12, Calcium citrate and vitamin D, and multivitamin due to risk of vitamin and mineral deficiencies after surgeryPt encouraged to continue with positive lifestyle changes and daily/vitamin intake REFERRALS: BMI market research coordinator LABS: Today: See Epic Orders In 12 months: CBC W DIFF, CMP, Vitamin B1, Vitamin B12, Folate, PTH Intact, Vitamin D25OH, Iron/TIBC/Ferritin, Lipids, and HBA1C DISPOSITION: Return 3 month to Post-op follow up/ individual office visit Interval History Last visit was with me in October. Has been off of work more recently. Not drinking as much water. Has not seen market research coordinator yet. Has been having morning headaches. Tries to take tylenol, but occasionally takes Excedrin. Was taking compounded semaglutide previously, now taking Wegovy. Tolerated well. Weight is decreased since last visit. AOM Hx: Was going to a med spa and getting semaglutide injections, but it is costly. Metformin - GI upset Contrave SE- bad dreams, felt like she was in a haze Topiramate took when she was younger for migraines Had kidney stone while . Diet: Increasing water intake Well Shooter consult still pending Exercise:increased Sleep: mild PILAR, not on CPAP Taking required vitamins and minerals: Yes ProCare Calcium: No Multivitamin & Minerals: 1 per day Iron Supplement: included in multi-vitamin Vitamin B12: included in multivitamin Vitamin D3: included in multi-vitamin Other: N/A Are you attending any Support Groups? Not known Current Outpatient Medications Medication Sig semaglutide, weight loss, (WEGOVY) 1.7 mg/0.75 mL pen injector Inject 0.75 mL subcutaneously one time a week for 28 days. [START ON 03/03/2023] semaglutide, weight loss, (WEGOVY) 2.4 mg/0.75 mL pen injector Inject 0.75 mL subcutaneously one time a week. Phentermine HCl 37.5 mg tablet Take 1 tablet by mouth once daily for 90 days. metFORMIN (GLUCOPHAGE) 500 mg tablet Take 1 tablet by mouth daily with dinner. ondansetron (ZOFRAN) 4 mg tablet Take 1 tablet by mouth every 6 hours as needed. oxyCODONE (ROXICODONE) 5 mg/5 mL oral solution Take 5-10 mL by mouth every 4 hours as needed. acetaminophen (TYLENOL) 500 mg tablet Take 500 mg by mouth every 8 hours as needed. loratadine (CLARITIN) 10 mg tablet Take 10 mg by mouth once daily. L-NORGEST/E.ESTRADIOL-E.ESTRAD (AMETHIA ORAL) Take 1 tablet by mouth once daily. No current facility-administered medications for this visit. Patient Active Problem List Acquired hypothyroidism Intractable chronic migraine without aura and without status migrainosus Anxiety Insulin resistance syndrome Mild obstructive sleep apnea Chronic fatigue Chronic back pain Chronic joint pain Kidney stones Personal history of nicotine dependence Streptococcus B carrier state complicating childbirth Gestational diabetes mellitus in , unspecified control History of oligohydramnios Dorsalgia, unspecified S/P laparoscopic sleeve gastrectomy PCOS (polycystic ovarian syndrome) Resolved Hospital Problems No resolved problems to display. Social History Tobacco Use Smoking status: Former Packs/day: 2.00 Years: 14.00 Additional pack years: 0.00 Total pack years: 28.00 Types: Cigarettes Quit date: 04/12/2014 Years since quittin.8 Smokeless tobacco: Never Substance Use Topics Alcohol use: No Drug use: No ROS: Denies nausea, vomiting, dumping syndrome, reactive hypoglycemia, gustatory rhinorrhea, Denies abdominal pain, constipation, diarrhea, melena, hematochezia, Denies paresthesias, gait abnormality, fatigue, weakness, lower extremity edema. +GERD + odor, irritation under pannus d/t excess skin w/ weight loss No loss of hair No dental problems No tingling/numbness No rash No menstrual irregularities(women) PHYSICAL EXAM: Vital Signs: Ht 170.5 cm (5' 7.13 ) Wt 89 kg (196 lb 3.2 oz) LMP 12/17/2016 (Exact Date) BMI 30.61 kg/m Body mass index is 30.61 kg/m . Physical exam: VIDEO EXAM: (if done, performed via video enabled technology) NAD, physical assessment not performed. Results: No visits with results within 3 Month(s) from this visit. Latest known visit with results is: Admission on 12/17/2016, Discharged on 12/18/2016 Component Date Value Ref Range Status WBC 12/18/2016 9.99 3.70 - 11.00 k/uL Final RBC 12/18/2016 4.40 3.90 - 5.20 m/uL Final Hemoglobin 12/18/2016 13.3 11.5 - 15.5 g/dL Final Hematocrit 12/18/2016 38.8 36.0 - 46.0 % Final MCV 12/18/2016 88.2 80.0 - 100.0 fL Final MCH 12/18/2016 30.2 26.0 - 34.0 pG Final MCHC 12/18/2016 34.3 30.5 - 36.0 g/dL Final RDW-CV 12/18/2016 12.5 11.5 - 15.0 % Final Platelet Count 12/18/2016 274 150 - 400 k/uL Final MPV 12/18/2016 10.6 9.0 - 12.7 fL Final Neut% 12/18/2016 72.2 % Final Abs Neut (ANC) 12/18/2016 7.21 1.45 - 7.50 k/uL Final Lymph% 12/18/2016 21.2 % Final Abs Lymph 12/18/2016 2.12 1.00 - 4.00 k/uL Final Jefferson% 12/18/2016 6.4 % Final Abs Jefferson 12/18/2016 0.64 0.00 - 0.86 k/uL Final Eosin% 12/18/2016 0.1 % Final Abs Eosin 12/18/2016 0.01 0.00 - 0.45 k/uL Final Baso% 12/18/2016 0.1 % Final Abs Baso 12/18/2016 0.01 0.00 - 0.10 k/uL Final Nucleated Reds 12/18/2016 0.0 0 /100 WBC Final Absolute nRBC 12/18/2016 0.00 k/uL Final Diff Type 12/18/2016 Auto Diff Final Glucose 12/18/2016 90 74 - 99 mg/dL Final BUN 12/18/2016 5 (L) 7 - 21 mg/dL Final Creatinine 12/18/2016 0.51 (L) 0.58 - 0.96 mg/dL Final Sodium 12/18/2016 138 136 - 144 mmol/L Final Potassium 12/18/2016 4.4 3.7 - 5.1 mmol/L Final Chloride 12/18/2016 104 97 - 105 mmol/L Final CO2 12/18/2016 20 (L) 22 - 30 mmol/L Final Anion Gap 12/18/2016 14 9 - 18 mmol/L Final Calcium 12/18/2016 8.8 8.5 - 10.2 mg/dL Final eGFR- 12/18/2016 >60 Final eGFR-All Other Races 12/18/2016 >60 . Final Magnesium 12/18/2016 1.9 1.7 - 2.3 mg/dL Final Phosphorus 12/18/2016 2.6 (L) 2.7 - 4.8 mg/dL Final Assessment Allan Oakes is a 37 year old female s/p Sleeve gastrectomy on12/17/2016 who responded well to surgery, losing approximately 25% of her total body weight. Post-OP course complicated by weight recurrence after 2 pregnancies.. Nearly all of her weight-related medical comorbidities have resolved or improved after surgery. Body mass index is 30.61 kg/m .) She has been complaint with her vitamin and mineral supplementation. Diet and exercise habits as above. Asymptomatic, taking required supplements as recommended, no signs or symptoms of vitamin deficiency. She continues to be motivated to lose weight. Agreeable to continue phentermine and Wegovy. ACTIVE PROBLEM LIST Pcos (Polycystic Ovarian Syndrome) S/P Laparoscopic Sleeve Gastrectomy Gestational Diabetes Mellitus in , Unspecified Control History of Oligohydramnios Personal History of Nicotine Dependence Streptococcus B Carrier State Complicating Childbirth Chronic Fatigue Anxiety Acquired Hypothyroidism Chronic Back Pain Chronic Joint Pain Insulin Resistance Syndrome Intractable Chronic Migraine Without Aura and Without Status Migrainosus Kidney Stones Dorsalgia, Unspecified Mild Obstructive Sleep Apnea Plan: EDUCATION: Encouraged to continue with healthy lifestyle changes and incorporate cardiovascular and resistance training, Discussed weight loss expectations after bariatric and metabolic surgery, Advised PT to avoid NSAIDs, smoking tobacco given increased risk of marginal ulcers, Compliant w/ bariatric vitamins. REFERRALS: BMI market research coordinator - reminded to schedule LABS: Today: NA Annual labs due in December 2023: CBC W DIFF, CMP, Vitamin B1, Vitamin B12, Folate, PTH Intact, Vitamin D25OH, Iron/TIBC/Ferritin, Lipids, and HBA1C DISPOSITION: Return 3 month to Post-op follow up/ individual office visit - consider addition of Topiramate for headaches or sleep study to r/o PILAR - add omeprazole for GERD, reminded to avoid NSAIDS - nystatin for fungal rash, consider referral to plastics - continue Wegovy 1.7 mg then increase to 2.4 mg - zofran prn for nausea - 1/2 tab of phentermine as needed Nicole Marquis APRN.[facility] Obesity Medicine I spent 25 minutes in the visit, with more than 50% of the total visw-lp-ksjr time of the visit in counseling / coordination of care. All documentation from previous visit was copied and pasted, documentation has been reviewed and edited as necessary for today's visit. documented in this encounter [facility] 11-12-2022 Note Education Materials COVID-19 Frequently Asked Questions COVID-19 (coronavirus disease) is an infection that is caused by a virus called severe acute respiratory syndrome coronavirus 2 (SARS-CoV-2). Coronaviruses are a large family of viruses. Some of these viruses cause illness in people, and others cause illness in animals like camels, cats, and bats. In some cases, the viruses that cause illness in animals can spread to humans. Where did the coronavirus come from? In March 2019, [place] told the World Health Organization (WHO) about several cases of lung disease (human respiratory illness). These cases were linked to an open seafood and livestock market in the city of [facility]. The link to the seafood and livestock market suggests that the virus may have spread from animals to humans. However, since that first outbreak in March 2019, the virus has also been shown to spread from person to person. What is the name of the disease and the virus? Disease name Early on, this disease was called novel coronavirus. This is because scientists determined that the disease was caused by a new (novel) respiratory virus. The World Health Organization (WHO) has now named the disease COVID-19, or coronavirus disease. Virus name The virus that causes the disease is called severe acute respiratory syndrome coronavirus 2 (SARS-CoV-2). More information on disease and virus naming ? World Health Organization: www.who.int/emergencies/disease s/sefie-hwcrkdxvkxm-7732/techni dilma-guidance Who is at risk for complications from coronavirus disease? Some people may be at higher risk for complications from coronavirus disease. This includes older adults and people who have chronic diseases, such as heart disease, diabetes, and lung disease. If you are at higher risk for complications, take these extra precautions: ? Stay home as much as possible. ? Avoid social gatherings and travel. ? Avoid close contact with others. Stay at least 6 ft (2 m) away from others, if possible. ? Wash your hands often with soap and water for at least 20 seconds. ? Avoid touching your face, mouth, nose, or eyes. ? Keep supplies on hand at home, such as food, medicine, and cleaning supplies. ? If you must go out in public, wear a cloth face covering or face mask. Make sure your mask covers your nose and mouth. How does coronavirus disease spread? The virus that causes coronavirus disease spreads easily from person to person (is contagious). You may catch the virus by: ? Breathing in droplets from an infected person. Droplets can be spread by a person breathing, speaking, singing, coughing, or sneezing. ? Touching something, like a table or a doorknob, that was exposed to the virus (contaminated) and then touching your mouth, nose, or eyes. Can I get the virus from touching surfaces or objects? There is still a lot that we do not know about the virus that causes coronavirus disease. Scientists are basing a lot of information on what they know about similar viruses, such as: ? Viruses cannot generally survive on surfaces for long. They need a human body (host) to survive. ? It is more likely that the virus is spread by close contact with people who are sick (direct contact), such as through: ? Shaking hands or hugging. ? Breathing in respiratory droplets that travel through the air. Droplets can be spread by a person breathing, speaking, singing, coughing, or sneezing. ? It is less likely that the virus is spread when a person touches a surface or object that has the virus on it (indirect contact). The virus may be able to enter the body if the person touches a surface or object and then touches his or her face, eyes, nose, or mouth. Can a person spread the virus without having symptoms of the disease? It may be possible for the virus to spread before a person has symptoms of the disease, but this is most likely not the main way the virus is spreading. It is more likely for the virus to spread by being in close contact with people who are sick and by breathing in the respiratory droplets spread when a person breathes, speaks, sings, coughs, or sneezes. What are the symptoms of coronavirus disease? Symptoms vary from person to person and can range from mild to severe. Symptoms may include: ? Fever or chills. ? Cough. ? Difficulty breathing or feeling short of breath. ? Feeling tired. ? Headaches, body aches, or muscle aches. ? Runny or stuffy (congested) nose. ? Sore throat. ? New loss of taste or smell. ? Nausea, vomiting, or diarrhea. These symptoms can appear anywhere from 2 to 14 days after you have been exposed to the virus. Some people may not have any symptoms. If you develop symptoms, call your health care provider. People with severe symptoms may need hospital care. Should I be tested for this virus? Your health care provider will decide whether to test you based on your symptoms, history of exposure, and your risk factors. How does a health care provider t (more content not included)... [facility] 10-28-2022 Note HNO ID: [id number] Author: Nicole Marquis APRN.VACCINE CUSTOMER REPRESENTATIVE Service: ? Author Type: Nurse Practitioner Type: Progress Notes Filed: 10/28/2022 8:16 AM Note Text: BMI Obesity Medicine PostOp Note- VIRTUAL VISIT October 27, 2022 I have communicated my name and active licensure. The patient's identity and physical location were verified at the time of this visit. Either the patient or their legal digital media representative has been informed of the risks and benefits of -- and alternatives to -- treatment through a remote evaluation and consents to proceed with the evaluation remotely. Index Surgery Date of Surgery: 12/17/2016 Surgeon: Luiz Maloney MD Surgical Procedure: Sleeve gastrectomy Pre-surgical weight: 124.7 kg (275 lb) Override Index Surgery Information? No Other Bariatric Surgeries Date of Surgery Surgeon Procedure 12/17/2016 Luiz Maloney MD LAPAROSCOPIC LONGITUDINAL GASTRECTOMY, GASTRIC RESTRICTIVE PROCEDURE Visit: 5 years Today's Visit: BMI 32.45 kg/(m2) Last Visit: Wt: 117 kg (258 lb) BMI: 40.25 kg/(m2) COMPLICATIONS SINCE LAST VISIT?: NONE Interval History Allan Oakes is doing well after surgery and has no complaints. She presents secondary to weight recurrence. Has been going to a [facility] and getting semaglutide injections, but it is costly. Metformin - GI upset Contrave SE- bad dreams, felt like she was in a haze Topiramate took when she was younger for migraines Had kidney stone while . Diet: Tolerating food in general, making healthy choices, eating 3 meals and 1-2 snacks per day, consuming adequate protein intake tolerates Phase V diet - Dumping Sx (vasomotor/GI):No - Food intolerance: No - Episodes of low blood sugar/dizziness after eating: No - Cravings: Yes - Hunger/satiety:Increased hunger, Reduced satiety. No longer fills quickly after eating - Hydration:adequatefluid intake as recommended Lightheaded? No Urine dark? No - Alcohol intake GI Symptoms: Denies Exercise: walks Sleep: mild PILAR, not on CPAP Gustatory rhinorrhea: No Cold intolerance: No Taking required vitamins and minerals: Yes ProCare Calcium: No Multivitamin AND Minerals: 1 per day Iron Supplement: included in multi-vitamin Vitamin B12: included in multivitamin Vitamin D3: included in multi-vitamin Other: N/A Bone density testing: no Quality of life:improved energy, easier to move, more confident, happier Off medications since surgery:N/A Liver biopsy (at time of surgery):No Are you attending any Support Groups? Not known Current Outpatient Medications Medication Sig Phentermine HCl 37.5 mg tablet Take 1 tablet by mouth once daily for 90 days. ondansetron (ZOFRAN, HYDROCHLORIDE,) 4 mg tablet Take 1 tablet by mouth once daily as needed. scopolamine (TRANSDERM-SCOP) 1 mg over 3 days Apply 1 Patch as directed every 72 hours. ondansetron (ZOFRAN) 4 mg tablet Take 1 tablet by mouth every 6 hours as needed. oxyCODONE (ROXICODONE) 5 mg/5 mL oral solution Take 5-10 mL by mouth every 4 hours as needed. acetaminophen (TYLENOL) 500 mg tablet Take 500 mg by mouth every 8 hours as needed. loratadine (CLARITIN) 10 mg tablet Take 10 mg by mouth once daily. L-NORGEST/E.ESTRADIOL-E.ESTRAD (AMETHIA ORAL) Take 1 tablet by mouth once daily. No current facility-administered medications for this visit. Patient Active Problem List S/P laparoscopic sleeve gastrectomy PCOS (polycystic ovarian syndrome) Resolved Hospital Problems No resolved problems to display. Social History Tobacco Use Smoking status: Former Packs/day: 2.00 Years: 14.00 Total pack years: 28.00 Types: Cigarettes Quit date: 04/12/2014 Years since quittin.5 Smokeless tobacco: Never Substance Use Topics Alcohol use: No Drug use: No ROS: Denies nausea, vomiting, dumping syndrome, reactive hypoglycemia, gustatory rhinorrhea, Denies abdominal pain, constipation, diarrhea, melena, hematochezia, Denies paresthesias, gait abnormality, fatigue, weakness, lower extremity edema, and Denies taking NSAIDs. Had GERD recently, but resolved on its own. No loss of hair No dental problems No tingling/numbness No rash No menstrual irregularities(women) PHYSICAL EXAM: Vital Signs: Wt 94.3 kg (208 lb) LMP 12/17/2016 (Exact Date) BMI 32.45 kg/m? Body mass index is 32.45 kg/m?. Physical exam: VIDEO EXAM: (if done, performed via video enabled technology) NAD, physical assessment not performed. Results: No visits with results within 3 Month(s) from this visit. Latest known visit with results is: Admission on 12/17/2016, Discharged on 12/18/2016 Component Date Value Ref Range Status WBC 12/18/2016 9.99 3.70 - 11.00 k/uL Final RBC 12/18/2016 4.40 3.90 - 5.20 m/uL Final Hemoglobin 12/18/2016 13.3 11.5 - 15.5 g/dL Final Hematocrit 12/18/2016 38.8 36.0 - 46.0 % Final MCV 12/18/2016 88.2 80.0 - 100.0 fL Final MCH 12/18/2016 30.2 26.0 - 34.0 pG Final MC (more content not included)... [facility] 10-28-2022 Instructions Nicole Marquis APRN.VACCINE CUSTOMER REPRESENTATIVE - 10/28/2022 8:14 AM EDT - start metformin 500 mg tab at dinner only - continue phentermine - add calcium - Fasting labs - please get drawn at you convenience (fast for 8-10 hours, drink 1-2 glasses of water before). - I have placed a consult to BMI nutrition: I recommend Valerie Hui RD or Julianna Lake RD. Call [phone] to schedule. Bariatric Multivitamins: $99 for 1 year supply - Bariatric Pal https://store.bariatricpalTimeGenius/ products/bariatricpal-multivita uka-wce-ecs-zdzrdifps-fosvwc-sf bscription?mtljdbd=[email or web address] 77&selling_plan=[id number] Bariatric Choice ONCE DAILY Bariatric Multivitamin Capsule with 45 mg of Iron (90 Count), Bariatric Vitamin Supplement for Post Bariatric Surgery Gastric Bypass Patients (best holden) on Bocandy Bariatric Choice on [employer] https://Uniphore/ Celebrate [email or web address]/ Bariatric Fusion Bariatric Fusion on Patient [employer] www.bariatricfusion.OptixConnect Pair with calcium citrate: Barilife Calcium after bariatric surgery: How much, what kind, where to get it (barilife.OptixConnect) Bariatric Fusion Bariatric Calcium Chews on Patient [employer] Bariatric advantage calcium citrate chews - 3 times a day - $45 for 90 day supply (best flavors) Bariatric Advantage Calcium Chews Citracal chews 3 x's a day GLP-1 Please call your insurance company or look at your online formulary to see if any medications in the GLP-1 drug class are covered (Wegovy, Saxenda, Mounjaro, Ozempic, Victoza, Trulicity) and what, if any, are the prior authorization requirements. Usually they require a diagnosis of diabetes (diagnosis code E66.9), prediabetes (R73.09), insulin resistance (E88.81) or they require a trial of a different medication such as metformin or Xenical first). Other medications for weight loss that may be on your formulary are Contrave or Qsymia. Please make sure that you Rx benefits card is uploaded to Convore, most of them are separate from your insurance card. This can expedite our prior authorization process. Here is a Website to see if Wegovy might be covered: [email or web address] /[email or web address] Please check with your insurance company to see if any anti-obesity medications are covered under your specific policy. If you insurance plan EXCLUDES anti-obesity medication coverage: FIRST: Discuss this with the mail manager at your job's human resources department (or wherever the policy is through) and ask them to request an exception through their plan's policy or opt in for obesity medication coverage in their company-wide policy. Contact information for the [place] [employer] if you would like to file a complaint about the discrimination for the chronic disease of obesity and the lack of access to care. https://gateway.insurance.[place]. gov/UI/CAS.CS.Public.UI/Complai nt.mvc/DisplayConsumerComplaint Form 3. Go to the obesity action coalition's Website and fill out the online form for access to care issues https://www.obesityaction.org/a sdion-center/xxrdhq-dldzbj-ro-c are-issues/ 4. Other people to contact: your Senator or House Fastener Technologist. Ask them to support the Treat and Reduce Obesity Act which would allow medicate to cover anti-obesity medications. Most insurance companies follow Medicare guidelines in what they will cover. https://www.obesityaction.org/t erik/ https://www.congress.gov/member s/zmah-eepf-radtki Important talking points: [place] obesity Facts https://www.obesityaction.org/w p-content/uploads/Bmmq1943.pdf Obesity is associated with over 200 chronic medical conditions including diabetes, heart disease, and at least 13 different types of cancer 93% of those who live with obesity have unmet medical needs There is a 34% increase in medical costs per year in a person affected by obesity over a normal weight person. According to a 2021 study by [employer], [place] ranks at No. 13 in the list of the most obese and overweight states.[place] ranked No. 1 in the highest percentage of overweight children in the nation, No. 9 highest percentage of obese adults, and No. 11 in percentage of adults with hypertension. Nearly half of [facility] (46.7%) are obese, per a new analysis from [facility] at the [facility].https://www.what3words/l ocal/francesco//[facility]- okivnfr-zslg-vxxmoy-us-average METFORMIN Dosing -- Begin Metformin 500 mg with dinner daily x 1 week. Taking the medication with food will help. -- if you experience any GI upset (Nausea, diarrhea, bloating, gas) you can hold the medication until it resolves. Once you are tolerating the medication you can try increasing it again. -- we can discuss increasing the dose further at your follow up visit. Using Metformin for weight loss: Metformin helps to lower blood glucose levels by reducing the amount of glucose produced and released by the liver, and by increasing insulin sensitivity. It has now been proven to prevent or delay diabetes. Metformin and Type 2 Diabetes Prevention Diabetes Spectrum (diabetesjournals.org) Large cohort studies have shown weight loss benefits associated with metformin therapy. Emerging evidence suggests that metformin-associated weight loss is due to modulation of hypothalamic appetite-regulatory centers, alteration in the gut microbiome, and reversal of consequences of aging. Metformin is also being explored in the management of obesity s sequelae such as hepatic steatosis, obstructive sleep apnea and osteoarthritis. Effectiveness of metformin on weight loss in non-diabetic individuals with obesity - PubMed (nih.gov) Is metformin a wonder drug? - [facility] Common side effects of this medication include nausea, changes in bowel habits, abdominal discomfort, and flatulence. Taking the medication with food will help. Side effects also typically get better with time. Rarely, a severe side effect called lactic acidosis can occur. If you experience malaise, muscle aches, difficulty breathing, or severe abdominal pain, please seek immediate medical attention. When to Take Extended-Release Metformin Metformin HCL is metabolized slowly, over 24 hours, which helps reduce GI side effects. Metformin extended-release is often a good option for people who experience adverse GI symptoms with standard metformin. Metformin HCL should be taken at night, with food. Elena Cardenas MD, clinical director of adult diabetes at [facility], explains why timing metformin HCL with the evening meal is so important. In normal physiology, a person's liver often makes glucose overnight, she says. So, it's not uncommon for a person to go to bed with a good blood glucose level and wake up with a higher one because their liver has been releasing sugar [all night]. Metformin turns off or slows down this process, so it can be more effective at night in treating fasting high blood sugar. https://www.MiNOWireless/eric jey/585537-lcua-wv-j-wbzu-ybqhb ushb-suv-cq-hbee-jzeptyw-xu-nig ht/ Metformin: Patient drug information Warning Rarely, metformin may cause too much lactic acid in the blood (lactic acidosis). The risk is higher in people who have kidney problems, liver problems, heart failure, use alcohol, or take other drugs like topiramate. The risk is also higher in people who are 65 or older and in people who are having surgery, an exam or test with contrast, or other procedures. If lactic acidosis happens, it can lead to other health problems and can be deadly. Kidney tests may be done while taking this drug. Do not take this drug if you have a very bad infection, low oxygen, or a lot of fluid loss (dehydration). Call your doctor right away if you have signs of too much lactic acid in the blood (lactic acidosis) like fast breathing, fast or slow heartbeat, a heartbeat that does not feel normal, very bad upset stomach or throwing up, feeling very sleepy, shortness of breath, feeling very tired or weak, very bad dizziness, feeling cold, or muscle pain or cramps. What is this drug used for? It is used to lower blood sugar in patients with high blood sugar (diabetes), treatment for PCOS, What do I need to tell my doctor BEFORE I take this drug? If you are allergic to this drug; any part of this drug; or any other drugs, foods, or substances. Tell your doctor about the allergy and what signs you had. If you have any of these health problems: Acidic blood problem, kidney disease, or liver disease. If you have had a recent heart attack or stroke. If you are not able to eat or drink like normal, including before certain procedures or surgery. If you are having an exam or test with contrast or have had one within the past 48 hours, talk with your doctor. This is not a list of all drugs or health problems that interact with this drug. Tell your doctor and pharmacist about all of your drugs (prescription or OTC, natural products, vitamins) and health problems. You must check to make sure that it is safe for you to take this drug with all of your drugs and health problems. Do not start, stop, or change the dose of any drug without checking with your doctor. What are some things I need to know or do while I take this drug? All products: Tell all of your health care providers that you take this drug. This includes your doctors, nurses, pharmacists, and dentists. Talk with your doctor before you drink alcohol. Do not drive if your blood sugar has been low. There is a greater chance of you having a crash. Check your blood sugar as you have been told by your doctor. Have blood work checked as you have been told by the doctor. Talk with the doctor. It may be harder to control blood sugar during times of stress such as fever, infection, injury, or surgery. A change in physical activity, exercise, or diet may also affect blood sugar. Follow the diet and workout plan that your doctor told you about. If diarrhea happens or you are throwing up, call your doctor. You will need to drink more fluids to keep from losing too much fluid. Be careful in hot weather or while being active. Drink lots of fluids to stop fluid loss. Long-term treatment with metformin may lead to low vitamin B-12 levels. If you have ever had low vitamin B-12 levels, talk with your doctor. If you are 65 or older, use this drug with care. You could have more side effects. There is a chance of in people of childbearing age who have not been ovulating. If you want to avoid , use control while taking this drug. Tell your doctor if you are , plan on getting , or are breast-feeding. You will need to talk about the benefits and risks to you and the baby. Extended-release tablets: You may see something that looks like the tablet in your stool. This is normal and not a cause for concern. If you have questions, talk with your doctor. What are some side effects that I need to call my doctor about right away? WARNING/CAUTION: Even though it may be rare, some people may have very bad and sometimes deadly side effects when taking a drug. Tell your doctor or get medical help right away if you have any of the following signs or symptoms that may be related to a very bad side effect: Signs of an allergic reaction, like rash; hives; itching; red, swollen, blistered, or peeling skin with or without fever; wheezing; tightness in the chest or throat; trouble breathing, swallowing, or talking; unusual hoarseness; or swelling of the mouth, face, lips, tongue, or throat. It is common to have stomach problems like upset stomach, throwing up, or diarrhea when you start taking this drug. If you have stomach problems later during treatment, call your doctor right away. This may be a sign of an acid health problem in the blood (lactic acidosis). Low blood sugar can happen. The chance may be raised when this drug is used with other drugs for diabetes. Signs may be dizziness, headache, feeling sleepy or weak, shaking, fast heartbeat, confusion, hunger, or sweating. Call your doctor right away if you have any of these signs. Follow what you have been told to do for low blood sugar. This may include taking glucose tablets, liquid glucose, or some fruit juices. What are some other side effects of this drug? All drugs may cause side effects. However, many people have no side effects or only have minor side effects. Call your doctor or get medical help if any of these side effects or any other side effects bother you or do not go away: Stomach pain or heartburn. Gas. Diarrhea, upset stomach, or throwing up. Feeling tired or weak. Headache. These are not all of the side effects that may occur. If you have questions about side effects, call your doctor. Call your doctor for medical advice about side effects. You may report side effects to your national health agency. How is this drug best taken? Use this drug as ordered by your doctor. Read all information given to you. Follow all instructions closely. All products: Take with meals. Keep taking this drug as you have been told by your doctor or other health care provider, even if you feel well. Extended-release tablets: Take with the evening meal if taking once daily. Swallow whole. Do not chew, break, or crush. If you have trouble swallowing, talk with your doctor. documented in this encounter [facility] 10-28-2022 History of Presen t illness Narrative BMI Obesity Medicine PostOp Note- VIRTUAL VISIT October 27, 2022 I have communicated my name and active licensure. The patient's identity and physical location were verified at the time of this visit. Either the patient or their legal digital media representative has been informed of the risks and benefits of -- and alternatives to -- treatment through a remote evaluation and consents to proceed with the evaluation remotely. Index Surgery Date of Surgery: 12/17/2016 Surgeon: Luiz Maloney MD Surgical Procedure: Sleeve gastrectomy Pre-surgical weight: 124.7 kg (275 lb) Override Index Surgery Information? No Other Bariatric Surgeries Date of Surgery Surgeon Procedure 12/17/2016 Luiz Maloney MD LAPAROSCOPIC LONGITUDINAL GASTRECTOMY, GASTRIC RESTRICTIVE PROCEDURE Visit: 5 years Today's Visit: BMI 32.45 kg/(m^2) Last Visit: Wt: 117 kg (258 lb) BMI: 40.25 kg/(m^2) COMPLICATIONS SINCE LAST VISIT?: NONE Interval History Allan Oakes is doing well after surgery and has no complaints. She presents secondary to weight recurrence. Has been going to a [facility] and getting semaglutide injections, but it is costly. Metformin - GI upset Contrave SE- bad dreams, felt like she was in a haze Topiramate took when she was younger for migraines Had kidney stone while . Diet: Tolerating food in general, making healthy choices, eating 3 meals and 1-2 snacks per day, consuming adequate protein intake tolerates Phase V diet - Dumping Sx (vasomotor/GI):No - Food intolerance: No - Episodes of low blood sugar/dizziness after eating: No - Cravings: Yes - Hunger/satiety:Increased hunger, Reduced satiety. No longer fills quickly after eating - Hydration:adequatefluid intake as recommended Lightheaded? No Urine dark? No - Alcohol intake GI Symptoms: Denies Exercise: walks Sleep: mild PILAR, not on CPAP Gustatory rhinorrhea: No Cold intolerance: No Taking required vitamins and minerals: Yes ProCare Calcium: No Multivitamin & Minerals: 1 per day Iron Supplement: included in multi-vitamin Vitamin B12: included in multivitamin Vitamin D3: included in multi-vitamin Other: N/A Bone density testing: no Quality of life:improved energy, easier to move, more confident, happier Off medications since surgery:N/A Liver biopsy (at time of surgery):No Are you attending any Support Groups? Not known Current Outpatient Medications Medication Sig Phentermine HCl 37.5 mg tablet Take 1 tablet by mouth once daily for 90 days. ondansetron (ZOFRAN, HYDROCHLORIDE,) 4 mg tablet Take 1 tablet by mouth once daily as needed. scopolamine (TRANSDERM-SCOP) 1 mg over 3 days Apply 1 Patch as directed every 72 hours. ondansetron (ZOFRAN) 4 mg tablet Take 1 tablet by mouth every 6 hours as needed. oxyCODONE (ROXICODONE) 5 mg/5 mL oral solution Take 5-10 mL by mouth every 4 hours as needed. acetaminophen (TYLENOL) 500 mg tablet Take 500 mg by mouth every 8 hours as needed. loratadine (CLARITIN) 10 mg tablet Take 10 mg by mouth once daily. L-NORGEST/E.ESTRADIOL-E.ESTRAD (AMETHIA ORAL) Take 1 tablet by mouth once daily. No current facility-administered medications for this visit. Patient Active Problem List S/P laparoscopic sleeve gastrectomy PCOS (polycystic ovarian syndrome) Resolved Hospital Problems No resolved problems to display. Social History Tobacco Use Smoking status: Former Packs/day: 2.00 Years: 14.00 Total pack years: 28.00 Types: Cigarettes Quit date: 04/12/2014 Years since quittin.5 Smokeless tobacco: Never Substance Use Topics Alcohol use: No Drug use: No ROS: Denies nausea, vomiting, dumping syndrome, reactive hypoglycemia, gustatory rhinorrhea, Denies abdominal pain, constipation, diarrhea, melena, hematochezia, Denies paresthesias, gait abnormality, fatigue, weakness, lower extremity edema, and Denies taking NSAIDs. Had GERD recently, but resolved on its own. No loss of hair No dental problems No tingling/numbness No rash No menstrual irregularities(women) PHYSICAL EXAM: Vital Signs: Wt 94.3 kg (208 lb) LMP 12/17/2016 (Exact Date) BMI 32.45 kg/m Body mass index is 32.45 kg/m . Physical exam: VIDEO EXAM: (if done, performed via video enabled technology) NAD, physical assessment not performed. Results: No visits with results within 3 Month(s) from this visit. Latest known visit with results is: Admission on 12/17/2016, Discharged on 12/18/2016 Component Date Value Ref Range Status WBC 12/18/2016 9.99 3.70 - 11.00 k/uL Final RBC 12/18/2016 4.40 3.90 - 5.20 m/uL Final Hemoglobin 12/18/2016 13.3 11.5 - 15.5 g/dL Final Hematocrit 12/18/2016 38.8 36.0 - 46.0 % Final MCV 12/18/2016 88.2 80.0 - 100.0 fL Final MCH 12/18/2016 30.2 26.0 - 34.0 pG Final MCHC 12/18/2016 34.3 30.5 - 36.0 g/dL Final RDW-CV 12/18/2016 12.5 11.5 - 15.0 % Final Platelet Count 12/18/2016 274 150 - 400 k/uL Final MPV 12/18/2016 10.6 9.0 - 12.7 fL Final Neut% 12/18/2016 72.2 % Final Abs Neut (ANC) 12/18/2016 7.21 1.45 - 7.50 k/uL Final Lymph% 12/18/2016 21.2 % Final Abs Lymph 12/18/2016 2.12 1.00 - 4.00 k/uL Final Jefferson% 12/18/2016 6.4 % Final Abs [place] 12/18/2016 0.64 0.00 - 0.86 k/uL Final Eosin% 12/18/2016 0.1 % Final Abs Eosin 12/18/2016 0.01 0.00 - 0.45 k/uL Final Baso% 12/18/2016 0.1 % Final Abs Baso 12/18/2016 0.01 0.00 - 0.10 k/uL Final Nucleated Reds 12/18/2016 0.0 0 /100 WBC Final Absolute nRBC 12/18/2016 0.00 k/uL Final Diff Type 12/18/2016 Auto Diff Final Glucose 12/18/2016 90 74 - 99 mg/dL Final BUN 12/18/2016 5 (L) 7 - 21 mg/dL Final Creatinine 12/18/2016 0.51 (L) 0.58 - 0.96 mg/dL Final Sodium 12/18/2016 138 136 - 144 mmol/L Final Potassium 12/18/2016 4.4 3.7 - 5.1 mmol/L Final Chloride 12/18/2016 104 97 - 105 mmol/L Final CO2 12/18/2016 20 (L) 22 - 30 mmol/L Final Anion Gap 12/18/2016 14 9 - 18 mmol/L Final Calcium 12/18/2016 8.8 8.5 - 10.2 mg/dL Final eGFR- 12/18/2016 >60 Final eGFR-All Other Races 12/18/2016 >60 . Final Magnesium 12/18/2016 1.9 1.7 - 2.3 mg/dL Final Phosphorus 12/18/2016 2.6 (L) 2.7 - 4.8 mg/dL Final Assessment Allan Oakes is a 37 year old female s/p Sleeve gastrectomy on12/17/2016 who responded well to surgery, losing approximately 25% of her total body weight. Post-OP course complicated by weight recurrence after 2 pregnancies.. Nearly all of her weight-related medical comorbidities have resolved or improved after surgery. Body mass index is 32.45 kg/m .) She has been complaint with her vitamin and mineral supplementation. Diet and exercise habits as above. Asymptomatic, taking required supplements as recommended, no signs or symptoms of vitamin deficiency. She continues to be motivated to lose weight. ACTIVE PROBLEM LIST Pcos (Polycystic Ovarian Syndrome) S/P Laparoscopic Sleeve Gastrectomy Plan: - Continue with lifestyle modification as discussed - Avoid NSAIDs given increased risk of marginal ulcers (RYGB). - Continue to exercise with goal of 200min per week - Continue to monitor iron panel, calcium, vitamin D, vitamin B1, B12, and C. Would consider checking zinc,copper levels if clinically suspicious. EDUCATION: Encouraged to continue with healthy lifestyle changes and incorporate cardiovascular and resistance training, Discussed weight loss expectations after bariatric and metabolic surgery, Advised PT to avoid NSAIDs, smoking tobacco given increased risk of marginal ulcers, Discussed importance of protein intake as per the RDN note, or Encouraged to take daily vitamin B12, Calcium citrate and vitamin D, and multivitamin due to risk of vitamin and mineral deficiencies after surgeryPt encouraged to continue with positive lifestyle changes and daily/vitamin intake REFERRALS: BMI market research coordinator LABS: Today: See Epic Orders In 12 months: CBC W DIFF, CMP, Vitamin B1, Vitamin B12, Folate, PTH Intact, Vitamin D25OH, Iron/TIBC/Ferritin, Lipids, and HBA1C DISPOSITION: Return 3 month to Post-op follow up/ individual office visit Nicole Marquis APRN.[facility] Obesity Medicine I spent 25 minutes in the visit, with more than 50% of the total [id number] time of the visit in counseling / coordination of care. documented in this encounter [facility] 06-27-2020 History of Past i llness Narrative Problem Noted Date Diagnosed Date Resolved Date Personal history of urinary calculi 06/27/202002/0202/02/2023 documented as of this encounter (statuses as of 02/02/2023) [facility]03-18-2021 History of Past illness Narrative* Problem Noted Date Diagnosed Date Resolved Date Personal history of urinary calculi 06/27/202002/0202/02/2023 documented as of this encounter (statuses as of 02/04/2023) [facility]-18-2021 History of Past illness Narrative* Problem Noted Date Diagnosed Date Resolved Date Personal history of urinary calculi 06/27/202002/0202/02/2023 documented as of this encounter (statuses as of 02/11/2023) [facility]-18-2021 History of Past illness Narrative* Problem Noted Date Diagnosed Date Resolved Date Personal history of urinary calculi 06/27/202002/0202/02/2023 documented as of this encounter (statuses as of 03/24/2023) [facility] Diagnosis Class 1 obesity with body mass index (BMI) of 32.0 to 32.9 in adult, unspecified obesity type, unspecified whether serious comorbidity present- Primary PCOS (polycystic ovarian syndrome) Polycystic ovaries S/P laparoscopic sleeve gastrectomy Bariatric surgery status documented in this encounter [facility] note* Diagnosis Class 1 obesity with body mass index (BMI) of 32.0 to 32.9 in adult, unspecified obesity type, unspecified whether serious comorbidity present- Primary documented in this encounter [facility] note* Diagnosis Class 1 obesity with body mass index (BMI) of 32.0 to 32.9 in adult, unspecified obesity type, unspecified whether serious comorbidity present documented in this encounter [facility] Summary Purpose Family History No Family History Records FoundNo Family History Records FoundNo Family History Records FoundNo Family History Records Found Advance Directives Documents on File Type Date Recorded 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 Advance Directive(s) 11/20/2016 2:51 PM Documents on File Type Date Recorded 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 Advance Directive(s) 11/20/2016 2:51 PM Reason for Referral Specialty Diagnoses / Procedures Referred By Wale ford Referred To Contact Nutrition Diagnoses Class 1 obesity with body mass index (BMI) of 32.0 to 32.9 in adult, unspecified obesity type, unspecified whether serious comorbidity present Procedures CONSULT TO NUTRITION THERAPY MEDICAL NUTRITION ASSMT&IVNTJ INDIV EACH 15 PA MEDICAL NUTRITION ASSMT&IVNTJ INDIV EACH 15 PA MEDICAL NUTRITION ASSMT&IVNTJ INDIV EACH 15 PA MEDICAL NUTRITION ASSMT&IVNTJ INDIV EACH 15 PA Nicole Marquis APRN.VACCINE CUSTOMER REPRESENTATIVE [address] [place] [address] Referral ID Status Reason Start Date Expiration Date Visits Requested Visits Authorized [id number] Authorized PCP Requested Referral 10/28/2022 10/28/2023 1 1 Additional Source Comments INFORMATION SOURCE (unrecogn ized section and content) DATE CREATED AUTHOR 05/19/2021 [facility] dical Specialist DATE CREATED AUTHOR AUTHOR'S ORGANIZ ATION 06/21/2021 [facility] pital DATE CREATED AUTHOR AUTHOR'S ORGANIZ ATION 11/18/2022 [facility] DATE CREATED AUTHOR AUTHOR'S ORGANIZ ATION 02/05/2023 [facility] Source Comments (unrecognize d section and content) In the event this informatio n is protected by the Federal Confidentiality of Alcohol and Drug Abuse Patient Records regulations: The Federal rules restrict any use of the information to criminally investigate or prosecute any alcohol or drug abuse patient.[facility] the event this information is protected by the Federal Confidentiality of Alcohol and Drug Abuse Patient Records regulations: The Federal rules restrict any use of the information to criminally investigate or prosecute any alcohol or drug abuse patient.[facility] the event this information is protected by the Federal Confidentiality of Alcohol and Drug Abuse Patient Records regulations: The Federal rules restrict any use of the information to criminally investigate or prosecute any alcohol or drug abuse patient.[facility] the event this information is protected by the Federal Confidentiality of Alcohol and Drug Abuse Patient Records regulations: The Federal rules restrict any use of the information to criminally investigate or prosecute any alcohol or drug abuse patient.[facility] the event this information is protected by the Federal Confidentiality of Alcohol and Drug Abuse Patient Records regulations: The Federal rules restrict any use of the information to criminally investigate or prosecute any alcohol or drug abuse patient.[facility] the event this information is protected by the Federal Confidentiality of Alcohol and Drug Abuse Patient Records regulations: The Federal rules restrict any use of the information to criminally investigate or prosecute any alcohol or drug abuse patient.[facility] the event this information is protected by the Federal Confidentiality of Alcohol and Drug Abuse Patient Records regulations: The Federal rules restrict any use of the information to criminally investigate or prosecute any alcohol or drug abuse patient.[facility] the event this information is protected by the Federal Confidentiality of Alcohol and Drug Abuse Patient Records regulations: The Federal rules restrict any use of the information to criminally investigate or prosecute any alcohol or drug abuse patient.[facility] the event this information is protected by the Federal Confidentiality of Alcohol and Drug Abuse Patient Records regulations: The Federal rules restrict any use of the information to criminally investigate or prosecute any alcohol or drug abuse patient.[facility] Reason for Visit (unrecogniz ed section and content) Reason Comments Post Op Reason Onset Date Comments Refill Request 12/18/2022 Reason Comments Med Change Request Reason Comments Obesity Care Teams (unrecognized sec tion and content) Skill Training Program Coordinator Relationship Specialty Start Date End Date Mariya Prather [address] [facility] [place] [phone] PCP - General Family Medicine 05/12/16 Skill Training Program Coordinator Relationship Specialty Start Date End Date Mariya Prather [address] [facility] [place] [phone] PCP - General Family Medicine 05/12/16 Skill Training Program Coordinator Relationship Specialty Start Date End Date Mariya Prather [address] [facility] [place] [phone] PCP - General Family Medicine 05/12/16 Skill Training Program Coordinator Relationship Specialty Start Date End Date Mariya Prather [address] [facility] [place] [phone] PCP - General Family Medicine 05/12/16 Skill Training Program Coordinator Relationship Specialty Start Date End Date Mariya Prather [address] [facility] [place] [phone] PCP - General Family Medicine 05/12/16 Skill Training Program Coordinator Relationship Specialty Start Date End Date Mariya Prather [address] [place] [address] PCP - General [facility] 05/12/16 Skill Training Program Coordinator Relationship Specialty Start Date End Date Mariya Prather [address] [facility] [place] [address] PCP - General Family [facility] 05/12/16 FOR RECORDS PERTAINING TO PATIENTS WHO ARE OR HAVE BEEN ENROLLED IN A CHEMICAL DEPENDENCY/SUBSTANCEABUSE PROGRAM, SOME INFORMATION MAY BE OMITTED. This clinical summary was aggregated from multiple sources. Caution should be exercised in using it in the provision of clinical care. This summary normalizes information from multiple sources, and as a consequence, information in this document may materially change the coding, format and clinical context of patient data. In addition, data may be omitted in some cases. CLINICAL DECISIONS SHOULD BE BASED ON THE PRIMARY CLINICAL RECORDS. [facility]. provides no warranty or guarantee of the accuracy or completeness of information in this document.
[2023-04-07 00:07] LABS: Age Gdln ACOG Testing Note (.); HPV Aptima Negative (Negative); IGP, Aptima HPV, rfx 16/18,45 Note (.)
== END 2023-03-31 21:38 | disposition home or self-care (01) ==
LOC: LAB 21:37
PROVIDERS: Visit Provider Physician Assistant
DX: Z01.419 Encounter for gynecological examination (general) (routine) without abnormal findings (principal)
CPT/HCPCS: 87624; G0145

== ENCOUNTER 2025-01-22 21:21 | Outpatient (REF) | payer OTHER, BC, SELFPAY ==
--- OUTSIDE RECORDS SUMMARY | 2024-06-23 11:50 | XMS_ITS ---
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 2. 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 * Medical History: Objective: * Vitals: Assessment: Plan: * Treatment: * * Electronic signature of Italo Sue MD, [id number] on 01/22/2025 at 09:26 PM EDT Sign off status: Pending Visit Status: R /S (Rescheduled) * Provider: Donny Sue MD Date: 0 06/23/2024 Generated for Elizabeth ng/Faxing/eTransmitting on: 1 09:26 PM EDT
--- OUTSIDE RECORDS SUMMARY | 2024-08-04 11:50 | XMS_ITS ---
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 * Medical History: Objective: * Vitals: Assessment: Plan: * Treatment: * * Electronic signature of Italo Sue MD, [id number] on 01/22/2025 at 03:41 PM EDT Sign off status: Pending Visit Status: R /S (Rescheduled) * Provider: Donny Sue MD Date: 0 08/04/2024 Generated for Elizabeth ng/Fakareng/eTransmitting on: 1 03:41 PM EDT
--- OUTSIDE RECORDS SUMMARY | 2024-09-14 10:00 | XMS_ITS ---
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 - w/ litholinkLVM reminder Medications Medication SIG (Take, Route, Fr equency, Duration) Notes Start Date End Date Status Ibuprofen 800 MG TAKE 1 TABLET BY LAVERN TH EVERY 8 HOURS NEEDED FOR PAIN Oral; Duration: 6 Days Active Zepbound 12.5 MG/0.5ML Subcutaneous; Dur ation: 28 Days Active Amoxicillin 500 MG TAKE 1 TABLET BY LAVERN TH THREE TIMES A DAY Oral; Duration: 7 Days Active Encounters Encounter Location Date Provider Diagnosis Urology [facility] [address] [address] 09/14/2024 Refugio Sue Plan Of Treatment No Information Progress Notes * VIOLETTEGermaine LOUISE RDOB:1985 (39 yo F)Acc No.[id number]:09/14/2024 UNLOCKED PROGRESS NOTE Progress Note Patient: Donny BIBIANALuz LOUISEantonette Brambila Provider: Donny Sue MD :1985 A ge:39 Y S ex:Female Date:09/14/2024 Address:[address] [place], [place] [phone] Subjective: * Chief Complaints: * 1 . 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 * Medical History: * Medications: T aking Amoxicillin 500 MG Tablet TAKE 1 TABLET BY MOUTH THREE TIMES A DAY Oral , Taking Ibuprofen 800 MG Tablet TAKE 1 TABLET BY MOUTH EVERY 8 HOURS NEEDED FOR PAIN Oral , Taking Zepbound(Tirzepatide-Weight Management) 12.5 MG/0.5ML Solution Auto-injector Subcutaneous Objective: * Vitals: Assessment: Plan: * Treatment: * * Electronic signature of Italo Sue MD, [id number] on 01/22/2025 at 03:41 PM EDT Sign off status: Pending Visit Status: Jose ANCBRITNEY (CANMS) * Provider: Donny Sue MD Date: 0 09/14/2024 Generated for Elizabeth lentz/Denis/Hectorsmitting on: 1 03:41 PM EDT
--- OUTSIDE RECORDS SUMMARY | 2025-01-11 15:30 | XMS_ITS | Encounter Summary ---
Author Organization [facility] Address [address] [place] [address] Care Team Providers Care Aircraft Mechanic Name Role Phone Mariya Grossman MD Primary Care Provider [phone] Nam Pickens LPC Unavailable Unavailable Encounter Details Date Type Department Care Team (Latest Contact Info) Description 01/11/2025 3:30 PM EDT Telemedicine [facility] [address] [place] [id number] Nam Pickens LPC Adjustment disorder with mixed anxiety and depressed mood; Marital problems Social History Tobacco Use Types Packs/Day Years Used Date Smoking Tobacco: Former Cigarettes Q uit: 04/12/2014 Smokeless Tobacco: Never Alcohol Use Standard Drinks/Week Comments Not Currently 0 (1 standard drink = 0.6 oz pure alcohol) Caffeine intake: 4-5 coffee daily B1300 Health Literacy Answer Date Recor ded How often do you need to hav e someone help you when you read instructions, pamphlets, or other written material from your doctor or pharmacy? Never 02/07/2024 Humiliation, Afraid, Rape, and Kick questionnair e Answer Date Recorded Within the last year, have y ou been afraid of your partner or ex-partner? No 11/13/2022 Within the last year, have y ou been humiliated or emotionally abused in other ways by your partner or ex-partner? No Within the last year, have y ou been kicked, hit, slapped, or otherwise physically hurt by your partner or ex-partner? No 11/13/2022 Within the last year, have y ou been raped or forced to have any kind of sexual activity by your partner or ex-partner? No 11/13/2022 Social Connection and Isolation Panel Answer Date Recorded In a typical week, how many times do you talk on the phone with family, friends, or neighbors? Three times a week 02/07/2024 How often do you get togethe r with friends or relatives? Once a week 02/07/2024 How often do you attend chur or mandaen services? More than 4 times per year 02/07/2024 Do you belong to any clubs o r organizations such as anglican groups, unions, fraternal or athletic groups, or school groups? No 02/07/2024 How often do you attend meet ings of the clubs or organizations you belong to? Never 02/07/2024 Are you , , di vorced, , never , or living with a partner? 02/07/2024 AUDIT-C Answer Date Recorded Q1: How often do you have a drink containing alcohol? Never 02/07/2024 Q2: How many drinks containi ng alcohol do you have on a typical day when you are drinking? Patient does not drink Q3: How often do you have si x or more drinks on one occasion? Never 02/07/2024 Overall Financial Resource Strain (CARDIA) Answe r Date Recorded How hard is it for you to pa y for the very basics like food, housing, medical care, and heating? Not hard at all 02/07/2024 [facility] - Occupational Stress Questionnaire Answer Date Recorded Do you feel stress - tense, restless, nervous, or anxious, or unable to sleep at night because your mind is troubled all the time - these days? Not at all 02/07/2024 Exercise Vital Sign Answer Date Recorde d On average, how many days pe r week do you engage in moderate to strenuous exercise (like a brisk walk)? 0 days 02/07/2024 On average, how many minutes do you engage in exercise at this level? 0 min 02/07/2024 Hunger Vital Sign Answer Date Recorded Within the past 12 months, y ou worried that your food would run out before you got the money to buy more. Never true 02/07/20 24 Within the past 12 months, t he food you bought just didn't last and you didn't have money to get more. Never true 02/07/2024 PRAPARE - Transportation Answer Date Re corded In the past 12 months, has l ack of transportation kept you from medical appointments or from getting medications? No 01/11 In the past 12 months, has l ack of transportation kept you from meetings, work, or from getting things needed for daily living? No 02/07/2024 Housing Stability Vital Sign Answer Kamran e Recorded In the last 12 months, was t here a time when you were not able to pay the mortgage or rent on time? No 11/13/2022 In the last 12 months, how many places have you lived? 1 11/13/2022 In the last 12 months, was t here a time when you did not have a steady place to sleep or slept in a fdc (including now)? No 11/13/2022 Housing Stability Vital Sign Answer Kamran e Recorded In the last 12 months, was t here a time when you were not able to pay the mortgage or rent on time? No 02/07/2024 In the past 12 months, how m any times have you moved where you were living? 0 02/07/2024 At any time in the past 12 m [facility], were you homeless or living in a fdc (including now)? No 02/07/2024 Comments Unknown Sex and Gender Information Value Date Recorded Sex Assigned at Not on file Legal Sex Female 6:37 PM EDT Gender Identity Not on file Sexual Orientation Not on file documented as of this encounter Progress Notes * Nam Pickens LPC - 01/11/2025 3:30 PM EDT Telehealth was completed with visual and audio, client was in [place], and in a safe place to proceed.Client's video cut out and session was continued with audio only. Client's , Christian, was present for the couples counseling session. Client and her shared positive experiences from their anniversary trip to [facility]. Client shared a negative is that her Mom will not watch all the kids at the same time again. Client's discussed his upcoming birthday, concert in [place],and seeing [employer], while a friend, Josef, babysits for them. Client shared that they have been using the [employer], completing relationship questions and quizzes, and reconnecting dur ing their trip. Client and her set a goal to continue hiking together. Client's reports not starting anxiety medication at this time. Clinician offered reflective listening, encouragement, and support. Mental Health Status Exam Appearance: Well groomed, appropriate eye contact. Behavior: cooperative Affect: WNL Hallucination: no Judgement: Appropriate to age Knowledge: WNL Language: Appropriate to age Orientation: Appropriate to age Speech: Coherent and Regular rate, rhythm, volume and articulation Thought Associations: No loosening of associations Thought Process: Abstract reasoning appropriate to age Thought Content: Within normal limits Sleep: no sleep issues Perception: No perceptual abnormalities noted Delusions: none Insight: Age appropriate Mood: WNL Suicidality: none Homicide: No significant risk factors identified on screening MARITAL CONFLICT Goal: Develop necessary skills for effective, open communication, mutually satisfying sexual intimacy, and enjoyable time for companionship within the relationship. Objective #1 Attend and actively participate in conjoint sessions with each other. Objective #2 Identify at least 5 positive aspects of the relationship. Objective #3 Identify 3 problems in the relationship including one???s own role in problems. Objective #4 Make a commitment to change specific behaviors that have been identified by self or the partner. Objective #5 Increase the frequency of the direct expression of honest, respectful, and positive feelings and thoughts within the relationship. Objective #6 Learn and implement problem-solving and conflict resolution skills. Adjustment Disorder Goal #1 Increase skills to improve functioning related to stressful event/change. Objective #1 To learn about and understand the diagnosis and identify 3 symptoms experienced. Objective #2 Identify and verbalize at least 3 ways life has been affected by the stressful event. Objective #3 Identify and verbalize at least 3 thoughts and feelings regarding the stressful event(s). Objective #4 Identify 3 healthy coping skills currently used and commit to using those skills 3x/week. Objective #5 Identify 3 strengths, support persons or other positive attributes of their life. Cosigned by RONNIE Cheung at 01/14/2025 6:45 PM EDT documented in this encounter Plan of Treatment Upcoming Encounters Date Type Department Care Team (Late st Contact Info) Description 01/23/2025 4:30 PM EDT Social Work [facility] [address] [place] [address] DenisNam vivar LPC 02/01/2025 4:30 PM EDT Social Work [facility] [address] [place] [address] Nam Pickens LPC 02/19/2025 4:00 PM EST Procedure Visit [facility] [address] [place] [address] Sean Garza DO [address] [place] [address] 03/13/2025 4:30 PM EST Social Work [facility] [address] [place] [address] Nam Pickens LPC 03/27/2025 4:30 PM EST Social Work [facility] [address] [facility] [address] [place] [address] Nam Pickens LPC documented as of this encounter Visit Diagnoses Diagnosis Adjustment disorder with mixed anxiety and depressed mood Marital problems Counseling for marital and partner problems, unspecified documented in this encounter Care Teams Aircraft Mechanic Relationship Specialty Start Date End Date Mariya Grossman MD [address] [place] [address] PCP - General Family Medicine 11/11/22 Nam Pickens LPC Therapist Behavioral Health 10/09/24 documented as of this encounter
--- OUTSIDE RECORDS SUMMARY | 2025-01-16 16:30 | XMS_ITS | Encounter Summary ---
Author Organization [facility] Address [address] [place] [address] Care Team Providers Care Pediatric Neuropsychologist Name Role Phone Mariya Grossman MD Primary Care Provider [phone] Nam Pickens LPC Unavailable Unavailable Reason for Visit * Reason Comments AD (Adjustment Disorder) Family Problem Encounter Details Date Type Department Care Team (Late st Contact Info) Description 01/16/2025 4:30 PM EDT Social Work [facility] [address] [place] [id number] Nam Pickens LPC Marital problems; Adjustment disorder with mixed anxiety and depressed mood Social History Tobacco Use Types Packs/Day Years [...] week 02/07/2024 How often do you attend [facility] or baptist services? More than 4 times per year 02/07/2024 Do you belong to any clubs o r organizations such as congregation groups, unions, fraternal or athletic groups, or [...] and heating? Not hard at all 02/07/2024 [facility] Questionnaire Answer Date Recorded [...] place to sleep or slept in a alf (including now)? No 11/13/2022 Housing Stability Vital Sign Answer Kamran e Recorded In the last 12 months, was t here a time when you were not able to pay the mortgage or rent on time? No 02/07/2024 In the past 12 months, how m any times have you moved where you were living? 0 02/07/2024 At any time in the past 12 m [facility], were you homeless or living in a alf (including now)? No 02/07/2024 Comments Unknown Sex and Gender Information Value Date Recorded Sex Assigned at Not on file Legal Sex Female 6:37 PM EDT Gender Identity Not on file Sexual Orientation Not on file documented as of this encounter Progress Notes * Nam Pickens LPC - 01/16/2025 4:30 PM EDT Client's , Christian, was present for the couple's counseling session. Clinician discussed the change in telehealth at this time and clients were agreeable. Client's shared about his birthday, going to a concert in [place], and that Germaine's best friend babysat. Client shared the impact of her Mom saying she wouldn't babysit again. Clinician assisted client in processing thoughts and feelings. Client and her discussed parenting struggles with two son's 15 months apart, their oldest having signs of ADHD, and sicknesses. Clinician praised and encouraged clients. Clinician offered reflective listening, encouragement, and support. [...] their life. Cosigned by RONNIE Cheung at 01/21/2025 10:15 AM EDT documented in this encounter Plan of Treatment Upcoming Encounters Date Type Department Care Team (Late st Contact Info) Description 01/23/2025 4:30 PM EDT Social Work [facility] [address] [place] [address] Nam Pickens LPC 02/01/2025 4:30 PM EDT Social Work [facility] [address] [place] [address] Nam Pickens LPC 02/19/2025 4:00 PM EST Procedure Visit [facility] [address] [place] [address] Sean Garza DO [address] [place] [address] 03/13/2025 4:30 PM EST Social Work [facility] [address] [facility] [address] [place] [address] Nam Pickens LPC 03/27/2025 4:30 PM EST Social Work [facility] [address] [place] [address] Nam Pickens LPC documented as of this encounter Visit Diagnoses Diagnosis Marital problems Counseling for marital and partner problems, unspecified Adjustment disorder with mixed anxiety and depressed mood documented in this encounter Care Teams Pediatric Neuropsychologist Relationship Specialty Start Date End Date Mariya Grossman MD [address] [place] [address] PCP - General Family Medicine 11/11/22 Nam Pickens LPC Therapist Behavioral Health 10/09/24 documented as of this encounter
--- OUTSIDE RECORDS SUMMARY | 2025-01-18 13:00 | XMS_ITS | Encounter Summary ---
Author Organization [facility] Address [id number] [address] [place] [address] Care Team Providers Care Cmm Programmer Name Role Phone Mariya Grossman MD Primary Care Provider [phone] Encounter Details Date Type Department Care Team (Latest Contact Info) Description 01/18/2025 1:00 PM EDT Nurse Injection [facility] [address] [place] [address] Need for immunization against influenza (Primary Dx) Social History Tobacco Use Types Packs/Day Years Used Date Smoking Tobacco: Never Assessed Childcare Answer Date Recorded Childcare Unknown 09/21/2018 Employment Answer Date Recorded Employment Unknown 09/21/2018 Purpose - Life Answer Date Recorded Purpose and direction in life Unknown Comments No Sex and Gender Information Value Date Recorded Sex Assigned at Not on file Legal Sex Female 12:06 PM EDT Gender Identity Not on file Sexual Orientation Not on file documented as of this encounter Plan of Treatment Not on file documented as of this encounter Visit Diagnoses Diagnosis Need for immunization against influenza- Primary Need for prophylactic vaccination and inoculation against influenza documented in this encounter Care Teams Cmm Programmer Relationship Specialty Start Date End Date Mariya Grossman MD [address] [place] [address] PCP - General Family Medicine 02/06/19 documented as of this encounter
--- OUTSIDE RECORDS SUMMARY | 2025-01-22 16:00 | XMS_ITS | Encounter Summary ---
Author Organization [facility] Address [address] [place] [address] Care Team Providers Care Artist'S Manager Name Role Phone Mariya Grossman MD Primary Care Provider [phone] Nam Pickens LPC Unavailable Unavailable Reason for Visit * Reason Comments Gynecologic Exam Encounter Details Date Type Department Care Team (Latest Contact Info) Description 01/22/2025 4:00 PM EDT Procedure Visit [facility] [address] [place] [address] Lucrecia Sahni PA [address] [facility] [place] [address] Well woman exam with routine gynecological exam; Encounter for screening mammogram for malignant neoplasm of breast; Uses control Social History Tobacco Use Types Packs/Day Years [...] How often do you attend chur or anabaptist services? More than 4 times per year 02/07/2024 Do you belong to any clubs o r organizations such as baptism groups, unions, [employer] or athletic groups, or school groups? No [...] and heating? Not hard at all 02/07/2024 [facility] - Occupational [...] place to sleep or slept in a intermediate (including now)? No 11/13/2022 Housing Stability Vital Sign Answer Kamran e Recorded In the last 12 months, was t here a time when you were not able to pay the mortgage or rent on time? No 02/07/2024 In the past 12 months, how m any times have you moved where you were living? 0 02/07/2024 At any time in the past 12 m [facility], were you homeless or living in a intermediate (including now)? No 02/07/2024 Comments No Sex and Gender Information Value Date Recorded Sex Assigned at Not on file Legal Sex Female 6:37 PM EDT Gender Identity Not on file Sexual Orientation Not on file documented as of this encounter Last Filed Vital Signs Vital Sign Reading Time Taken Comments Blood Pressure 114/70 01/22/2025 4:03 PM EDT Pulse - - Temperature - - Respiratory Rate - - Oxygen Saturation - - Inhaled Oxygen Concentration - - Weight 73 kg (161 lb) 01/22/2025 4:03 PM EDT Height 170.2 cm (5' 7 ) 01/22/2025 4:03 PM EDT Body Mass Index 25.22 01/22/2025 4:03 PM EDT documented in this encounter Progress Notes * Tamera Barnes MA - 01/22/2025 4:00 PM EDT Reason for Appointment: Patient ID: Germaine Burr is a 39 y.o. female who presents for Gynecologic Exam Patient presents today for Annual Exam. MEDICATIONS Current Outpatient Medications Medication Instructions L norgest/e.estradiol-e.estrad (Seasonique) 0.15-0.03 &0.01 MG tablet tablet 1 tablet, Oral, Every morning Multiple Vitamin (MULTI VITAMIN PO) Take by mouth phentermine (ADIPEX-P) 37.5 mg, Daily RT Probiotic Product (PRO-BIOTIC BLEND PO) Take by mouth Tirzepatide-Weight Management 12.5 MG/0.5ML solution auto-injector ALLERGIES Allergies[1] PROBLEMS Active Ambulatory Problems Diagnosis Date Noted Acquired hypothyroidism 11/11/2022 H/O gastric sleeve 11/11/2022 Insulin resistance 01/13/2022 Intractable chronic migraine without aura and without status migrainosus 11/11/2022 Morbid obesity (CMS-HCC) 01/12/2022 PCOS (polycystic ovarian syndrome) 08/07/2016 Chronic fatigue 01/12/2022 Personal history of nicotine dependence 10/22/2020 Insulin resistance syndrome 01/13/2022 Hereditary hemochromatosis 01/06/2024 Adjustment disorder with mixed anxiety and depressed mood 07/12/2024 Marital problems 07/12/2024 Resolved Ambulatory Problems Diagnosis Date Noted Anxiety 01/13/2022 Chronic back pain 01/12/2022 Mild obstructive sleep apnea 01/13/2022 Past Medical History: Diagnosis Date Migraine Yeast infection HISTORY PAST MEDICAL HISTORY SOCIAL HISTORY Medical History[2] Social History Tobacco Use Smoking status: Former Current packs/day: 0.00 Types: Cigarettes Quit date: 04/12/2014 Years since quittin.7 Smokeless tobacco: Never Vaping Use Vaping status: Never Used Substance Use Topics Alcohol use: Not Currently Comment: Caffeine intake: 4-5 coffee daily Drug use: Never FAMILY HISTORY Family History[3] SURGICAL HISTORY Surgical History[4] REVIEW OF SYSTEMS Review of Systems: Review of Systems Constitutional: Negative. HENT: Negative. Eyes: Negative. Respiratory: Negative. Cardiovascular: Negative. Gastrointestinal: Negative. Genitourinary: Positive for menstrual problem, pelvic pain and vaginal bleeding. Musculoskeletal: Negative. Skin: Negative. Neurological: Negative. All other systems reviewed and are negative. Hematological: Negative. Endocrine: Negative. Allergic/Immunologic: Negative. OBJECTIVE Objective: Physical Exam Constitutional: Appearance: Normal appearance. She is well-developed. Genitourinary: Vulva normal. Breasts: Breasts are soft. Right: Normal. Left: Normal. Cardiovascular: Rate and Rhythm: Normal rate and regular rhythm. Pulmonary: Effort: Pulmonary effort is normal. Breath sounds: Normal breath sounds. Abdominal: General: Bowel sounds are normal. There is no distension. Palpations: Abdomen is soft. Tenderness: There is no abdominal tenderness. There is no guarding or rebound. Musculoskeletal: General: No swelling. Normal range of motion. Right lower leg: No edema. Left lower leg: No edema. Neurological: Mental Status: She is alert and oriented to person, place, and time. Skin: General: Skin is warm and dry. Psychiatric: Mood and Affect: Mood normal. Behavior: Behavior normal. Vitals and nursing note reviewed. Exam conducted with a proposal development manager present. Vitals: Estimated body mass index is 25.22 kg/m?? as calculated from the following: Height as of this encounter: 5' 7 . Weight as of this encounter: 161 lb. BP: 114/70 No LMP recorded (lmp unknown). (Menstrual status: Oral Contraception). ASSESSMENT & PLAN ICD-10-CM 1. Well woman exam with routine gynecological exam Z01.419 THIN PREP TIS PAP AND HR HPV DNA 2. Encounter for screening mammogram for malignant neoplasm of breast Z12.31 Bilateral screening mammogram Bilateral screening mammogram Annual Exam: Patient presents today for an annual exam. Patient states she is doing well and has no complaints. Pap was obtained without difficulty. Discussed irregular menstrual cycles and intermittent pelvic pain. today and patient is interested in endometrial ablation. Orders Placed This Encounter Procedures Bilateral screening mammogram Follow Up: Patient is to return in one year for annual unless needed otherwise. Documented by Tamera Barnes MA on behalf of: ABHI Polanco [1] No Known Allergies [2] Past Medical History: Diagnosis Date Acquired hypothyroidism 11/11/2022 Anxiety 01/13/2022 Chronic back pain 01/12/2022 H/O gastric sleeve 11/11/2022 Insulin resistance 01/13/2022 Intractable chronic migraine without aura and without status migrainosus 11/11/2022 Migraine Mild obstructive sleep apnea 01/13/2022 Morbid obesity ([facility]-HCC) 01/12/2022 Last Assessment & Plan: The patient may be an acceptable candidate for Revision- Laparoscopic Sleeve to Bypass Conversion. Patient will need to complete the following extensive management options, including preoperative diagnostic testing and evaluation, to qualify for surgery as a treatment for the chronic disease of morbid obesity. U PCOS (polycystic ovarian syndrome) Yeast infection recurrent [3] Family History Problem Relation Name Age of Onset Hepatitis Mother Heart disease Father Live [place] Hypertension Father [place] Diabetes Maternal Grandmother Lindsey puneet Hypertension Maternal Grandmother Lindsey puneet Cancer Maternal Grandmother Lindsey puneet Kidney disease Maternal Grandmother Lindsey puneet Diabetes Maternal Grandfather Bernardo enrico Hypertension Maternal Grandfather Bernardo enrico Cancer Maternal Grandfather Bernardo enrico Diabetes Paternal Grandmother Lindsey Puneet Hypertension Paternal Grandmother Lindsey [place]uneet Diabetes Paternal Grandfather Hypertension Paternal Grandfather [4] Past Surgical History: Procedure Laterality Date CHOLECYSTECTOMY 2013 GALL BLADDER 06/2013 SLEEVE GASTROPLASTY 12/17/2016 documented in this encounter Plan of Treatment Upcoming Encounters Date Type Department Care Team (Late st Contact Info) Description 01/23/2025 4:30 PM EDT Social Work [facility] [address] [facility] [address] [place] [address] Nam Pickens [facility] 02/01/2025 4:30 PM EDT Social Work [facility] [address] [facility] [address] [place] [address] Nam Pickens LPC 02/19/2025 4:00 PM EST Procedure Visit [facility] [address] [place] [id number] Sean Garza DO [address] [facility] [place] [address] 03/13/2025 4:30 PM EST Social Work [facility] [address] [place] [address] [place] [address] Nam Pickens LPC 03/27/2025 4:30 PM EST Social Work [facility] [address] [facility] [address] [place] [address] Nam Pickens LPC Scheduled Orders Name Type Priority Associated Diagnoses Orde r Schedule Bilateral screening mammogram Imaging Routine Encounter for screening mammogram for malignant neoplasm of breast Expected: 01/22/2025 (Approximate), Expires: 03/24/2026 THIN PREP TIS PAP AND HR HPV DNA Pathology and Cytology Routine Well woman exam with routine gynecological exam Ordered: 01/22/2025 documented as of this encounter Visit Diagnoses Diagnosis Well woman exam with routine gynecological exam Routine gynecological examination Encounter for screening mammogram for malignant neoplasm of breast Uses control documented in this encounter Care Teams Artist'S Manager Relationship Specialty Start Date End Date Mariya Grossman MD [address] [place] [address] PCP - General Family Medicine 11/11/22 Nam Pickens LPC Therapist Behavioral Health 10/09/24 documented as of this encounter
--- OUTSIDE RECORDS SUMMARY | 2025-01-22 21:26 | XMS_ITS | Encounter Summary ---
Author Organization [facility] Address [address] [place] [address] Care Team Providers Care Pickle Solution Maker Name Role Phone Mariya Grossman MD Primary Care Provider [phone] Mariya Grossman MD Unavailable Nam Pickens LPC Unavailable Unavailable Encounter Details Date Type Department Care Team (Late st Contact Info) Description 06/15/2024 Abstract [facility] Family Medicine [address] [place] [address] Josefina Carrillo NP [address] [place], [place] [id number] Social History Tobacco Use Types Packs/Day Years [...] week 02/07/2024 How often do you attend [facility] or zoroastrianism services? More than 4 times per year 02/07/2024 Do you belong to any clubs o r organizations such as taoism groups, unions, fraternal or athletic groups, or [...] and heating? Not hard at all 02/07/2024 [facility] Stress Questionnaire Answer [...] place to sleep or slept in a skilled nursing (including now)? No 11/13/2022 Housing Stability Vital Sign Answer Kamran e Recorded In the last 12 months, was t here a time when you were not able to pay the mortgage or rent on time? No 02/07/2024 In the past 12 months, how m any times have you moved where you were living? 0 02/07/2024 At any time in the past 12 m [facility], were you homeless or living in a skilled nursing (including now)? No 02/07/2024 Comments Unknown Sex and Gender Information Value Date Recorded Sex Assigned at Not on file Legal Sex Female 6:37 PM EDT Gender Identity Not on file Sexual Orientation Not on file documented as of this encounter Plan of Treatment Upcoming Encounters Date Type Department Care Team (Late st Contact Info) Description 01/23/2025 4:30 PM EDT Social Work [facility] [address] [place] [address] [place] [phone] Nam Pickens LPC 02/01/2025 4:30 PM EDT Social Work [facility] [address] [place] [address] [place] [phone] Nam Pickens LPC 02/19/2025 4:00 PM EST Procedure Visit [facility] [address] [facility] [place] [phone] Sean Garza DO [address] [facility] [place] [address] 03/13/2025 4:30 PM EST Social Work [facility] [address] [place] [address] [place] [address] Nam Pickens LPC 03/27/2025 4:30 PM EST Social Work [facility] [address] [facility] [address] [place] [address] Nam Pickens LPC documented as of this encounter Visit Diagnoses Not on filedocumented in this encounter Care Teams Pickle Solution Maker Relationship Specialty Start Date End Date Mariya Grossman MD [address] [place] [address] PCP - General Family Medicine 11/11/22 Mariya Grossman MD [address] [place] [address] PCP - Medical [employer] 05/13/19 01/10/25 Nam Pickens LPC Therapist Behavioral Health 10/09/24 documented as of this encounter
--- OUTSIDE RECORDS SUMMARY | 2025-01-22 21:26 | XMS_ITS | Encounter Summary ---
Author Organization [facility] Address [address] [place] [address] Care Team Providers Care Emu Farmer Name Role Phone Mariya Grossman MD Primary Care Provider [phone] Nam Pickens LPC Unavailable Unavailable Encounter Details Date Type Department Care Team (Late st Contact Info) Description 01/22/2025 Bamboo flowsheet [facility] [address] [place] [address] Lucrecia Sahni PA [address] [facility] [address] [place], [facility] Social History Tobacco Use Types Packs/Day Years [...] week 02/07/2024 How often do you attend [facility] or moravian services? More than 4 times per year 02/07/2024 Do you belong to any clubs o r organizations such as pentecostal groups, unions, fraternal or athletic groups, or [...] and heating? Not hard at all 02/07/2024 [facility] - Occupational Stress [...] place to sleep or slept in a jail (including now)? No 11/13/2022 Housing Stability Vital Sign Answer Kamran e Recorded In the last 12 months, was t here a time when you were not able to pay the mortgage or rent on time? No 02/07/2024 In the past 12 months, how m any times have you moved where you were living? 0 02/07/2024 At any time in the past 12 m [facility], were you homeless or living in a jail (including now)? No 02/07/2024 Comments No Sex [...] Health [address] [place] [address] [place] [address] Nam Pickens LPC 02/01/2025 4:30 PM EDT Social Work [facility] [address] [place] [address] [place] [address] Nam Pickens LPC 02/19/2025 4:00 PM EST Procedure Visit [facility] [address] [place] [address] [place] [address] Sean Garza DO [address] [facility] [place] [address] 03/13/2025 4:30 PM EST Social Work [facility] [address] [facility] [address] [place] [address] Nam Pickens LPC 03/27/2025 4:30 PM EST Social Work [facility] [address] [facility] [address] [place] [address] Nam Pickens LPC documented as of this encounter Visit Diagnoses Not on filedocumented in this encounter Care Teams Emu Farmer Relationship Specialty Start Date End Date Mariya Grossman MD [address] [place], [place] [id number] PCP - General Family Medicine 11/11/22 Nam Pickens LPC Therapist Behavioral Health 10/09/24 documented as of this encounter
--- OUTSIDE RECORDS SUMMARY | 2025-01-22 21:26 | XMS_ITS | Clinical Summary ---
Author Organization [facility] Healthcare Address [address] [place] [address] Care Team Providers Care Structural Steel Worker Helper Name Role Phone Mariya Grossman MD Primary Care Provider [phone] Nam Pickens LPC Unavailable Unavailable Allergies No known active allergies Medications phentermine (Adipex-P) 37.5 MG tablet Take 37.5 mg by mouth in the morning. Half a tablet daily. 10/29/19 23 Active Multiple Vitamin (MULTI VITAMIN PO) Take by mouth Active Probiotic Product (PRO-BIOTIC BLEND PO) Take by mouth Active Tirzepatide-We ight Management 12.5 MG/0.5ML solution auto-injector 03/31/20 24 Active L norgest/e.estr adiol-e.estrad (Seasonique) 0.15-0.03 &0.01 MG tablet tabletIndicati ons:Uses control Take 1 tablet by mouth in the morning. 91 tablet 3 01/23/20 25 Active fluconazole (Diflucan) 150 MG tabletIndicati ons:Antibiotic -induced yeast infection Take 1 tablet once; may repeat in 72 hours if symptoms are not improved 2 tablet 02/15/20 24 025 Discontinued(Th erapy completed) L norgest/e.estr adiol-e.estrad (Ashlyna) 0.15-0.03 &0.01 MG tablet tabletIndicati ons:Uses control Take 1 tablet by mouth in the morning. 91 tablet 12/02/19 25 025 Discontinued L norgest/e.estr adiol-e.estrad (Seasonique) 0.15-0.03 &0.01 MG tablet tabletIndicati ons:Uses control TAKE 1 TABLET BY MOUTH EVERY DAY IN THE MORNING 91 tablet 3 12/28/19 25 025 Discontinued(Re order) Active Problems Problem Noted Date Diagnosed Date Adjustment disorder with mixed anxiety and depre ssed mood 07/12/2024 Marital problems 07/12/2024 Hereditary hemochromatosis 01/06/2024 Acquired hypothyroidism 11/11/2022 H/O gastric sleeve 11/11/2022 Intractable chronic migraine without aura and without status migrainosus 11/11/2022 Insulin resistance 01/13/2022 Insulin resistance syndrome 01/13/2022 Morbid obesity 01/12/2022 Overview (11/11/2022): Last Assessment & Plan: The patient may be an acceptable candidate for Revision- Laparoscopic Sleeve to Bypass Conversion. Patient will need to complete the following extensive management options, including preoperative diagnostic testing and evaluation, to qualify for surgery as a treatment for the chronic disease of morbid obesity. Ultimately, the following extensive amount of data will be obtained and reviewed to ensure this high risk patient qualifies for elective bariatric surgery. The patient understands elective surgery is not without risk for complications that can cause morbidity or mortality. However, the patient understands that untreated morbid obesity and its associated chronic conditions has a higher risk of complications and/or morbidity or mortality. Therefore, the patient will proceed with the following: Insurance: Medical [employer] Initial Consultation Date: 01/13/22 Sleep Study:Mild PILAR not using CPAP Psychiatric evaluation: pending - ordered today - referral given 3 Months of SWL: pending [facility] Completion: pending - ordered today - over 90 days PCP letter of support: pending - ordered today UGI Swallow study: pending Patient Educated with: Dietitian Nutrition Welcome.pdf (Dietitian Nutrition Welcome.pdf) Patient Educated with: Protein Food Chart.pdf (Protein Food Chart.pdf) Patient Educated with: Vegetable and Fruit Carbohydrate Counts Chart.pdf (Vegetable and Fruit Carbohydrate Counts Chart.pdf). The entire nutrition, exercise, and mindset curriculum is also made available on our website. The comorbidities associated with the presenting problems include, but are not limited to: -Development of leak, infection or sepsis -Development of a stricture that may require one or more dilations to open it -Development of a blood clot in their leg (DVT) which could result in a clot going to their lung (pulmonary embolism) -Development of paraesthesias, wound infections, hernias, adhesions, and/or bowel obstruction -Development of respiratory problems (requiring prolonged ventilatory dependence) -Development of blood loss (requiring transfuison) -Necessity to undergo a re-operation for any reason that the surgeon deems medically necessary -Necessity to follow up with the entire [facility] Weight Loss and Bariatric Surgery Team including surgeons, nurse practitioners, nutrition/metabolism specialists during their weight loss period (for life) -Importance of compliance with the multivitamin and calcium citrate recommendations for lifelong health There are several management options for this patient, including: -Behavioral modification -Pharmacotherapy -Surgical options: -->Laparoscopic Sleeve Gastrectomy -->Laparoscopic Juanis-En-Y Gastric Bypass Chronic fatigue 01/12/2022 Personal history of nicotine dependence 10/23/19 PCOS (polycystic ovarian syndrome) 08/07/2016 Resolved Problems Problem Noted Date Diagnosed Date Resolved Date Anxiety 01/13/2022 05/19/2023 Mild obstructive sleep apnea 01/13/2022 08/20/2023 Chronic back pain 01/12/2022 05/19/2023 Encounters Date Type Department Care Team Description 01/22/2025 4:00 PM EDT Procedure Visit [facility] [address] [place] [address] Lucrecia Sahni PA Well woman exam with routine gynecological exam; Encounter for screening mammogram for malignant neoplasm of breast; Uses control 01/22/2025 Bamboo flowsheet [facility] [address] [place] [address] Lucrecia Sahni PA 01/16/2025 4:30 PM EDT Social Work [facility] [address] [facility] [address] [place] [phone] Nam Pickens LPC Marital problems; Adjustment disorder with mixed anxiety and depressed mood 01/16/2025 Bamboo flowsheet [facility] [address] [facility] [address] [place] [id number] Nam Pickens LPC 01/16/2025 Travel 01/15/2025 Orders Only [facility] [address] [facility] [place] [address] Adrienne Hearn LPN 01/11/2025 3:30 PM EDT Telemedicine [facility] [address] [place] [address] [place] [address] Nam Pickens, PLANT EQUIPMENT ENGINEER Adjustment disorder with mixed anxiety and depressed mood; Marital problems 01/11/2025 Bamboo flowsheet [facility] [address] [place] [address] [place] [address] Nam Pickens, PLANT EQUIPMENT ENGINEER 01/11/2025 Travel 12/27/2024 Refill [facility] [address] [facility] [place] [address] Lucrecia Sahni, ABHI Uses control 12/21/2024 4:00 PM EDT Telemedicine [facility] [address] [place] [address] [place] [address] Nam Pickens, PLANT EQUIPMENT ENGINEER Adjustment disorder with mixed anxiety and depressed mood ; Marital problems 12/21/2024 Bamboo flowsheet [facility] [address] [place] [address] [place] [address] Nam Pickens, PLANT EQUIPMENT ENGINEER 12/21/2024 Travel 12/14/2024 4:30 PM EDT Social Work [facility] [address] [place] [address] [place] [address] Nam Pickens, PLANT EQUIPMENT ENGINEER Adjustment disorder with mixed anxiety and depressed mood ; Marital problems 12/14/2024 Bamboo flowsheet [facility] [address] [place] [address] [place] [address] Nam Pickens, PLANT EQUIPMENT ENGINEER 12/14/2024 Travel 11/30/2024 Refill [facility] [address] [facility] [place] [address] Lucrecia Sahni, PA Uses control 11/15/2024 4:30 PM EDT Social Work [facility] [address] [place] [address] [place] [address] Nam Pickens LPC Adjustment disorder with mixed anxiety and depressed mood ; Marital problems 11/15/2024 Bamboo flowsheet [facility] [address] [place] [address] [place] [address] Nam Pickens LPC 11/15/2024 Travel 11/06/2024 4:30 PM EDT Social Work [facility] [address] [place] [address] [place] [address] Nam Pickens LPC Adjustment disorder with mixed anxiety and depressed mood ; Marital problems 11/06/2024 Bamboo flowsheet [facility] [address] [place] [address] [place] [address] Nam Pickens LPC 11/06/2024 Travel 10/25/2024 4:30 PM EDT Social Work [facility] [address] [place] [address] [place] [address] Nam Pickens LPC Adjustment disorder with mixed anxiety and depressed mood ; Marital problems 10/25/2024 Bamboo flowsheet [facility] [address] [place] [address] [place] [address] Nam Pickens LPC 10/25/2024 Travel from Last 3 Months Immunizations Immunization Administration Dates Next Due Hep B, Adolescent or Pediatric 12/25/2002,2002 Influenza Whole 04/28/2012 Influenza, injectable, quadrivalent 02/10/2018 Influenza, injectable, quadr ivalent, preservative free 01/19/2022,03/18/2021,12/17/2016,01/24 Influenza, seasonal, injectable 05/12/2013 Influenza, seasonal, injecta ble, preservative free 03/04/2015,05/12/2013 Meningococcal MPSV4 12/13/2002 Td (adult), unspecified 01/03/2003 Tdap 01/26/2016 Family History Medical History Relation Name Comments Heart disease Father Live Puneet Hypertension Father Live [place] Cancer Maternal Grandfather Bernardo weston Diabetes Maternal Grandfather Bernardo weston Hypertension Maternal Grandfather Bernardo weston Cancer Maternal Grandmother Lindsey puneet Diabetes Maternal Grandmother Lindsey puneet Hypertension Maternal Grandmother Lindsey puneet Kidney disease Maternal Grandmother Lindsey puneet Hepatitis Mother Diabetes Paternal Grandfather Hypertension Paternal Grandfather Diabetes Paternal Grandmother Lindsey Puneet Hypertension Paternal Grandmother Lindsey Puneet Relation Name Status Comments Daughter Father Live Mcarthur Alive Maternal Grandfather Bernardo weston Maternal Grandmother Lindsey puneet Mother Alive Paternal Grandfather Paternal Grandmother Lindsey Puneet Son 2 Social History Tobacco Use Types Packs/Day Years Used Date Smoking Tobacco: Former Cigarettes Q uit: 04/12/2014 Smokeless Tobacco: Never Tobacco Cessation:Counseling Given: Not Answered Alcohol Use Standard Drinks/Week Comments Not Currently [...] week 02/07/2024 How often do you attend [facility] or jain services? More than 4 times per year 02/07/2024 Do you belong to any clubs o r organizations such as christian groups, unions, fraternal or athletic groups, or [...] and heating? Not hard at all 02/07/2024 [facility] - Occupational [...] place to sleep or slept in a mcfp (including now)? No 11/13/2022 Housing Stability Vital Sign Answer Kamran e Recorded In the last 12 months, was t here a time when you were not able to pay the mortgage or rent on time? No 02/07/2024 In the past 12 months, how m any times have you moved where you were living? 0 02/07/2024 At any time in the past 12 m [facility], were you homeless or living in a mcfp (including now)? No 02/07/2024 Comments No Sex and Gender Information Value Date Recorded Sex Assigned at Not on file Legal Sex Female 6:37 PM EDT Gender Identity Not on file Sexual Orientation Not on file Last Filed Vital Signs Vital Sign Reading Time Taken Comments Blood Pressure 114/70 01/22/2025 4:03 PM EDT Pulse 55 06/15/2024 9:04 AM EST Temperature 37.7 C (99.8 F) 06/08/2024 11:02 AM EST Respiratory Rate - - Oxygen Saturation 96% 06/15/2024 9:04 AM EST Inhaled Oxygen Concentration - - Weight 73 kg (161 lb) 01/22/2025 4:03 PM EDT Height 170.2 cm (5' 7 ) 01/22/2025 4:03 PM EDT Body Mass Index 25.22 01/22/2025 4:03 PM EDT Plan of Treatment Upcoming Encounters Date Type Department Care Team (Late st Contact Info) Description 01/23/2025 4:30 PM EDT Social Work [facility] [address] [place] [address] [place] [address] Nam Pickens LPC 02/01/2025 4:30 PM EDT Social Work [facility] [address] [place] [address] [place] [address] Nam Pickens LPC 02/19/2025 4:00 PM EST Procedure Visit [facility] [address] [facility] [place] [address] Sean Graza DO [address] [facility] [address] [place], [place] [id number] 03/13/2025 4:30 PM EST Social Work [facility] [address] [facility] [address] [place] [address] Nam Pickens LPC 03/27/2025 4:30 PM EST Social Work [facility] [address] [facility] [address] [place] [address] Nam Pickens LPC Health Maintenance Due Date Last Done Comments HPV/Cotest 09/17/2023 09/16/2018 Mammogram 2024 Cervical Cancer Screening 06/02/2024 Pap Smear 06/02/2024 06/02/2021 Influenza Vaccine Completed 01/18/2025, , 03/18/2021, Additional history exists Procedures Procedure Name Priority Date/Time Associated Diagnosis Comments PAP SMEAR Routine 06/02/2021 12:00 AM EST Q - THINPREP(R) TIS W/RFL HPV MRNA E6/E7 Routine 09/16/2018 from Last 3 Months or Most Recently Relevant to Health Maintenance Results * Pap Smear (06/02/2021 12:00 AM EST) Swab Cervical swab / Unknown Kayla Nurse [facility] CYTOLOGY ORDERABLES Final Result EXTERNAL LAB * Q - THINPREP(R) TIS W/RFL HPV MRNA E6/E7 (09/16/2018) CLINICAL INFORMATION: None given [facility] LMP: None given [facility] PREV. PAP: None given [facility] PREV. BX: None given [facility] SOURCE: None given [facility] STATEMENT OF ADEQUACY: SEE NOTE [facility] Comment: Satisfactory for evaluation. Endocervical/transformation zone component present. INTERPRETATION /RESULT: Negative for intraepithelial lesion or malignancy. [facility] COMMENT: This Pap test has been evaluated with computer assisted technology. [facility] CYTOTECHNOLOGI ST: SEE NOTE [facility] Comment: LAS, CT(ASCP) CT screening location: [facility], [address] [place] [address], [place] [address]. COMMENT SEE NOTE [facility] Comment: EXPLANATORY NOTE: The Pap is a screening test for cervical cancer. It is not a diagnostic test and is subject to false negative and false positive results. It is most reliable when a satisfactory sample, regularly obtained, is submitted with relevant clinical findings and history, and when the Pap result is evaluated along with historic and current clinical information. 09/16/2018 [facility] Final Result Performing Organization Address City/State/[facility] Co de Phone Number [facility] from Last 3 Months or Most Recently Relevant to Health Maintenance Insurance [employer] [place] [employer] Care Teams Structural Steel Worker Helper Relationship Specialty Start Date End Date Mariya Grossman MD [address] [place] [address] PCP - General Family Medicine 11/11/22 Nam Pickens LPC Therapist Behavioral Health 10/09/24
--- OUTSIDE RECORDS SUMMARY | 2025-01-22 21:26 | XMS_ITS | Encounter Summary ---
Author Organization [facility] Healthcare Address [address] [place] [address] Care Team Providers Care Solar Consultant Name Role Phone Mariya Grossman MD Primary Care Provider [phone] Mariya Grossman MD Unavailable [phone] Mono Woodson LPN Unavailable [phone] Nam Pickens LPC Unavailable Unavailable Encounter Details Date Type Department Care Team (Late st Contact Info) Description 08/31/2023 Abstract [facility] Family Medicine [address] [place] [phone] Josefina Carrillo NP [address] [place] [address] Social History Tobacco Use Types Packs/Day Years Used Date Smoking Tobacco: Former Cigarettes Q uit: 04/12/2014 Smokeless Tobacco: Never Alcohol Use Standard Drinks/Week Comments Not Currently 0 (1 standard drink = 0.6 oz pure alcohol) Caffeine intake: 2-3 cups per day coffee, tea Humiliation, Afraid, Rape, and Kick questionnair e [...] the phone with family, friends, or neighbors? More than three times a week 11/13/2022 How often do you get togethe r with friends or relatives? Once a week 11/13/2022 How often do you attend chur or hindu services? Never 11/13/2022 Do you belong to any clubs o r organizations such as worship groups, unions, fraternal or athletic groups, or school groups? No 11/13/2022 How often do you attend meet ings of the clubs or organizations you belong to? Never 11/13/2022 Are you , , di vorced, , never , or living with a partner? 11/13/2022 AUDIT-C Answer Date Recorded Q1: How often do you have a drink containing alcohol? Never 11/13/2022 Q2: How many drinks containi ng alcohol do you have on a typical day when you are drinking? Patient does not drink Q3: How often do you have si x or more drinks on one occasion? Never 11/13/2022 Overall Financial Resource Strain (CARDIA) Answe r Date Recorded How hard is it for you to pa y for the very basics like food, housing, medical care, and heating? Not hard at all 11/13/2022 [facility] Occupat ional Health - Occupational Stress Questionnaire Answer Date Recorded Do you feel stress - tense, restless, nervous, or anxious, or unable to sleep at night because your mind is troubled all the time - these days? Not at all 11/13/2022 Exercise Vital Sign Answer Date Recorde d On average, how many days pe r week do you engage in moderate to strenuous exercise (like a brisk walk)? 3 days 11/13/2022 On average, how many minutes do you engage in exercise at this level? 60 min 11/13/2022 Hunger Vital Sign Answer Date Recorded Within the past 12 months, y ou worried that your food would run out before you got the money to buy more. Never true 11/14/19 23 Within the past 12 months, t he food you bought just didn't last and you didn't have money to get more. Never true 11/13/2022 PRAPARE - Transportation Answer Date Re corded In the past 12 months, has l ack of transportation kept you from medical appointments or from getting medications? No 07/2022 In the past 12 months, has l ack of transportation kept you from meetings, work, or from getting things needed for daily living? No 11/13/2022 Housing Stability Vital Sign Answer [...] place to sleep or slept in a senior care (including now)? No 11/13/2022 Comments Unknown Sex and Gender Information Value [...] [facility] [address] [facility] [address] [place] [address] Nam Pickens COLOR DIPPER 02/01/2025 4:30 PM EDT Social Work [facility] [address] [facility] [address] [place] [address] Nam Pickens [facility] 02/19/2025 4:00 PM EST Procedure Visit [facility] [address] [facility] [place] [phone] Sean Garza DO [address] [facility] [address] [place], [place] [id number] 03/13/2025 4:30 PM EST Social Work [facility] [address] [facility] [address] [place] [address] Nam Pickens [facility] 03/27/2025 4:30 PM EST Social Work [facility] [address] [place] [address] [place] [address] Nam Pickens LPC documented as of this encounter Visit Diagnoses Not on filedocumented in this encounter Care Teams Solar Consultant Relationship Specialty Start Date End Date Mariya Grossman MD [address] [place], [place] [id number] PCP - General Family Medicine 11/11/22 Mariya Grossman MD [address] [place], [place] [id number] PCP - Medical Stuart [employer] 05/13/19 01/10/25 Mono Woodson, TOM [address] [facility] [address] [place] [address] [id number] Licensed Practical Nurse Family Medicine 03/28/2406/05 Nam Pickens LPC Therapist Behavioral Health 10/09/24 documented as of this encounter
--- OUTSIDE RECORDS SUMMARY | 2025-01-22 21:26 | XMS_ITS | Patient Health Record ---
Author Organization [facility] [place] Address [address] [place] [address] Care Team Providers Care Radiologist Name Role Phone VikramItaloRefugio Unavailable [phone] Reason For Referral No Information Medications Medication SIG (Take, Route, Fr equency, [...] Active Encounters Encounter Location Date Provider Diagnosis [address] [address] 02/24/2024 Refugio Sue Plan Of Treatment No Information Insurance Providers Payer Name Payer Address Payer Phone Subscriber Number Group Number Insured Name Patient Relationship to Insured Coverage Start Date Coverage End Date MMO [address] [place], [place] [id number] Germaine Burr Self - patient is the insured [employer] PPO PLUS LOCAL PLAN [address] [place] [address] [id number] Christian Burr Spouse - patient is the spouse of the insured
--- OUTSIDE RECORDS SUMMARY | 2025-01-22 21:26 | XMS_ITS | Encounter Summary ---
Author Organization [facility] Address [address] [place] [address] Care Team Providers Care Legal Contracts Specialist Name Role Phone Mariya Grossman MD Primary Care Provider [phone] Nam Pickens LPC Unavailable Unavailable Encounter Details Date Type Department Care Team (Late st Contact Info) Description 01/11/2025 Bamboo flowsheet [facility] [address] [place] [address] [place] [address] Nam Pickens LPC Social History Tobacco Use Types Packs/Day Years [...] 02/07/2024 How often do you attend chur ch or scientology services? More than 4 times per year 02/07/2024 Do you belong to any clubs o r organizations such as orthodox groups, unions, fraternal or athletic groups, or [...] and heating? Not hard at all 02/07/2024 [facility]at ional Health - Occupational Stress [...] place to sleep or slept in a chcf (including now)? No 11/13/2022 Housing Stability Vital Sign Answer Kamran e Recorded In the last 12 months, was t here a time when you were not able to pay the mortgage or rent on time? No 02/07/2024 In the past 12 months, how m any times have you moved where you were living? 0 02/07/2024 At any time in the past 12 m [facility], were you homeless or living in a chcf (including now)? No 02/07/2024 Comments Unknown Sex [...] [facility] [address] [facility] [address] [place] [address] Nam Pickens LPC 02/01/2025 4:30 PM EDT Social Work [facility] [address] [facility] [address] [place] [address] Nam Pickens CRYPTOGRAPHIC MACHINE OPERATOR 02/19/2025 4:00 PM EST Procedure Visit [facility] [address] [place] [address] Sean Garza DO [address] [place] [address] 03/13/2025 4:30 PM EST Social Work [facility] [address] [place] [address] [place] [address] Nam Pickens LPC 03/27/2025 4:30 PM EST Social Work [facility] [address] [place] [address] [place] [address] Nam Pickens LPC documented as of this encounter Visit Diagnoses Not on filedocumented in this encounter Care Teams Legal Contracts Specialist Relationship Specialty Start Date End Date Mariya Grossman MD [address] [place] [address] PCP - General Family Medicine 11/11/22 Nam Pickens LPC Therapist Behavioral Health 10/09/24 documented as of this encounter
--- OUTSIDE RECORDS SUMMARY | 2025-01-22 21:26 | XMS_ITS | Encounter Summary ---
Author Organization [facility] Address [address] [place] [address] Care Team Providers Care Fixture Designer Name Role Phone Mariya Grossman MD Primary Care Provider [phone] Nam Pickens LPC Unavailable Unavailable Encounter Details Date Type Department Care Team (Late st Contact Info) Description 01/15/2025 Orders Only [facility] [address] [place] [address] Adrienne Hearn LPN [address] [facility] [id number] Social History Tobacco Use Types Packs/Day Years [...] week 02/07/2024 How often do you attend [facility] or denominational services? More than 4 times per year 02/07/2024 Do you belong to any clubs o r organizations such as quaker groups, unions, fraternal or athletic groups, or [...] and heating? Not hard at all 02/07/2024 [facility] - Occupational [...] place to sleep or slept in a correction (including now)? No 11/13/2022 Housing Stability Vital Sign Answer Kamran e Recorded In the last 12 months, was t here a time when you were not able to pay the mortgage or rent on time? No 02/07/2024 In the past 12 months, how m any times have you moved where you were living? 0 02/07/2024 At any time in the past 12 m [facility] [place], were you homeless or living in a correction (including now)? No 02/07/2024 Comments Unknown Sex [...] [facility] [address] [facility] [address] [place] [address] Nam Pickens LPC 02/01/2025 4:30 PM EDT Social Work [facility] [address] [place] [address] [place] [address] Nam Pickens LPC 02/19/2025 4:00 PM EST Procedure Visit [facility] [address] [place] [address] [place] [address] Sean Garza, [address] [facility] [place] [address] 03/13/2025 4:30 PM EST Social Work [facility] [address] [facility] [address] [place] [address] Nam Pickens LPC 03/27/2025 4:30 PM EST Social Work [facility] [address] [facility] [address] [place] [address] Nam Pickens LPC documented as of this encounter Procedures Procedure Name Priority Date/Time Associated Diagnosis Comments PAP SMEAR Routine 06/02/2021 12:00 AM EST documented in this encounter Results * Pap Smear (06/02/2021 12:00 AM EST) Swab Cervical swab / Unknown Kayla Nurse [facility] Ob LAB CYTOLOGY ORDERABLES Final Result EXTERNAL LAB documented in this encounter Visit Diagnoses Not on filedocumented in this encounter Care Teams Fixture Designer Relationship Specialty Start Date End Date Mariya Grossman MD [address] [place] [address] PCP - General Family Medicine 11/11/22 Nam Pickens LPC Therapist Behavioral Health 10/09/24 documented as of this encounter
--- OUTSIDE RECORDS SUMMARY | 2025-01-22 21:26 | XMS_ITS | Encounter Summary ---
Author Organization [facility] tem Address [id number] [address] [place] [address] Care Team Providers Care Lead Quality Control Technician Name Role Phone Mariya Grossman MD Primary Care Provider [phone] Encounter Details Date Type Department Care Team (Late st Contact Info) Description 06/14/2020 Documentation Maternal- Medicine at [facility] [address] [place] [address] Genoveva Johnston, RN Social History Tobacco Use Types Packs/Day Years Used Date Smoking Tobacco: Never Assessed Childcare Answer Date Recorded Childcare Unknown 09/21/2018 Employment Answer Date Recorded Employment Unknown 09/21/2018 Purpose - Life Answer Date Recorded Purpose and direction in life Unknown Comments Yes Sex and Gender Information Value Date Recorded Sex Assigned at Not on file Legal Sex Female 12:06 PM EDT Gender Identity Not on file Sexual Orientation Not on file documented as of this encounter Plan of Treatment Not on file documented as of this encounter Visit Diagnoses Not on filedocumented in this encounter Care Teams Lead Quality Control Technician Relationship Specialty Start Date End Date Mariya Grossamn MD [address] [place] [address] PCP - General Family Medicine 02/06/19 documented as of this encounter
--- OUTSIDE RECORDS SUMMARY | 2025-01-22 21:26 | XMS_ITS | Encounter Summary ---
Author Organization [facility] Address [id number] [address] [place] [address] Care Team Providers Care Bond Runner Name Role Phone Mariya Grossman MD Primary Care Provider [phone] Reason for Referral * Diagnostic Imaging (Routine) - Closed Specialty Diagnoses / Procedures Referred By Contac t Referred To Contact Maternal and Medicine Diagnoses Gestational diabetes mellitus (GDM) in second trimester, gestational diabetes method of control unspecified Multigravida of advanced maternal age in second trimester History of bariatric surgery BMI 38.0-38.9,adult Procedures [facility] with or without consult Yariel Velazquez MD [address] [place] [address] 10/11/2023 [place] [address] Phone: tel: fax: Maternal- Medicine at [address] [address] Phone: tel: fax: Referral ID Status Reason Start Date Expiration Date Visits Re quested Visits Authorized [id number] Closed 07/17/2020 07/17/2021 1 1 Encounter Details Date Type Department Care Team (Late st Contact Info) Description 07/17/2020 Orders Only Maternal- Medicine at [address] [phone] Yariel Velazquez MD [address] [facility] [employer] [place] [address] Gestational diabetes mellitus (GDM) in second trimester, gestational diabetes method of control unspecified (Primary Dx); Multigravida of advanced maternal age in second trimester; History of bariatric surgery; BMI 38.0-38.9,adult Social History Tobacco Use Types Packs/Day Years [...] on file Sexual Orientation Not on file COVID-19 Exposure Response Date Recorded In the last month, have you been in contact with someone who was confirmed or suspected to have Coronavirus / COVID-19? No / Unsure 07/17/2020 9:17 AM EDT documented as of this encounter Plan of Treatment Not on file documented as of this encounter Results * [facility] OB FOLLOW-UP, 1 FETUS (08/13/2020 4:19 PM EDT) Anatomical Region Laterality Modality Pelvis Ultrasound 08/13/2020 4:06 PM EDT Impressions 08/13/2020 4:23 PM EDT IMPRESSION: 1. Single intrauterine gestation with EFW at the 91st percentile. AC measures at the 99th percentile. 2. Amniotic fluid volume assessment is normal. Narrative 08/13/2020 4:23 PM EDT OBSTETRICS REPORT (Signed Final 08/13/2020 16:23) PATIENT INFO: ID #: [id number] : [birth year] (35 yrs)(F) Name: ALLAN OAKES Visit Date: 08/13/2020 16:06 PERFORMED BY: Performed By: Janice Aviles RDMS Attending: Kei Clifton MD Referred By: Sean Jones. Address: [address] [place] [address] [place] [address] Location: Maternal Medicine [place] SERVICE(S) PROVIDED: OB Follow-up, 1 fetus [id number] INDICATIONS: Previous bariatric surgery status affecting O99.840 , antepartum Gestational diabetes mellitus in O24.419 Supervision of elderly (over 35 years), O09..519 antepartum VITAL SIGNS: Weight (lb): 266 Height: 5'9 BMI: 39.28 EVALUATION: Num Of Fetuses: 1 Heart Rate(bpm): 150 Cardiac Activity: Present & appears normal Presentation: Cephalic Placenta: Anterior, away from cervical os Amniotic Fluid GRUPO FV: Subjectively within normal limits GRUPO Sum(cm) %Tile Largest Pocket(cm) 9.06 5 3.76 RUQ(cm) RLQ(cm) LUQ(cm) LLQ(cm) 1.82 3.76 3.48 0 BIOMETRY: BPD: 74.4 mm G.Age: 29w 6d 61 % OFD: 100.7 mm HC: 279.2 mm G.Age: 30w 4d 60 % AC: 281.6 mm G.Age: 32w 1d 99 % FL: 54.3 mm G.Age: 28w 5d 24 % HUM: 49.2 mm G.Age: 29w 0d 39 % CER: 33.7 mm G.Age: 28w 4d 42 % LV: 4.5 mm CM: 7.9 mm TIB: 46.8 mm G.Age: 28w 3d 33 % CI: 73.9 % 70 - 86 FL/HC: 19.4 % 19.6 - 20.8 HC/AC: 0.99 0.99 - 1.21 FL/BPD: 73.0 % 71 - 87 FL/AC: 19.3 % 20 - 24 Est. FW: 1639 gm 3 lb 10 oz 91 % OB HISTORY: : 3 Term: 1 [place]: 1 GESTATIONAL AGE: LMP: 29w 1d Date: 01/22/20 EL: 10/28/20 U/S Today: 30w 2d EL: 10/20/20 Best: 29w 1d Det. By: LMP (01/22/20) EL: 10/28/20 ANATOMY: Cranium: Appears normal Cavum: Appears normal Ventricles: Appear normal Heart: Appears normal (4 chamber & axis) Diaphragm: Appears normal Stomach: Appears normal, left sided Cord Vessels: Appears normal (3 vessel cord) Kidneys: Appear normal Bladder: Appears normal CERVIX UTERUS ADNEXA: Cervix Not visualized due to late gest. age Uterus Gravid uterus Left Ovary Not visualized Right Ovary Not visualized RECOMMENDATIONS: 1. Patient is scheduled in four weeks for follow up growth ultrasound. 2. Subsequent follow up or other follow up as clinically determined by primary OB provider unless otherwise specified by MFM. 3. Results forwarded to ordering provider so they can follow up with the patient as necessary. Kei Clifton MD Electronically Signed Final Report 08/13/2020 16:23 Procedure Kei Parsons MD - 08/13/2020 OBSTETRICS REPORT (Signed Final 08/13/2020 16:23) PATIENT INFO: ID #: [id number] : [birth year] (35 yrs)(F) Name: ALLAN OAKES Visit Date: 08/13/2020 16:06 PERFORMED BY: Performed By: Janice Aviles RDMS Attending: Kei Clifton MD Referred By: Sean Jones. Address: [address] [place] [address] [place] [address] Location: Maternal Medicine [place] SERVICE(S) PROVIDED: OB Follow-up, 1 fetus [id number] INDICATIONS: Previous bariatric surgery status affecting O99.840 , antepartum Gestational diabetes mellitus in O24.419 Supervision of elderly (over 35 years), O09..519 antepartum VITAL SIGNS: Weight (lb): 266 Height: 5'9 BMI: 39.28 EVALUATION: Num Of Fetuses: 1 Heart Rate(bpm): 150 Cardiac Activity: Present & appears normal Presentation: Cephalic Placenta: Anterior, away from cervical os Amniotic Fluid GRUPO FV: Subjectively within normal limits GRUPO Sum(cm) %Tile Largest Pocket(cm) 9.06 5 3.76 RUQ(cm) RLQ(cm) LUQ(cm) LLQ(cm) 1.82 3.76 3.48 0 BIOMETRY: BPD: 74.4 mm G.Age: 29w 6d 61 % OFD: 100.7 mm HC: 279.2 mm G.Age: 30w 4d 60 % AC: 281.6 mm G.Age: 32w 1d 99 % FL: 54.3 mm G.Age: 28w 5d 24 % HUM: 49.2 mm G.Age: 29w 0d 39 % CER: 33.7 mm G.Age: 28w 4d 42 % LV: 4.5 mm CM: 7.9 mm TIB: 46.8 mm G.Age: 28w 3d 33 % CI: 73.9 % 70 - 86 FL/HC: 19.4 % 19.6 - 20.8 HC/AC: 0.99 0.99 - 1.21 FL/BPD: 73.0 % 71 - 87 FL/AC: 19.3 % 20 - 24 Est. FW: 1639 gm 3 lb 10 oz 91 % OB HISTORY: : 3 Term: 1 [place]: 1 GESTATIONAL AGE: LMP: 29w 1d Date: 01/22/20 EL: 10/28/20 U/S Today: 30w 2d EL: 10/20/20 Best: 29w 1d Det. By: JOSEMANUEL (01/22/20) EL: 10/28/20 ANATOMY: Cranium: Appears normal Cavum: Appears normal Ventricles: Appear normal Heart: Appears normal (4 chamber & axis) Diaphragm: Appears normal Stomach: Appears normal, left sided Cord Vessels: Appears normal (3 vessel cord) Kidneys: Appear normal Bladder: Appears normal CERVIX UTERUS ADNEXA: Cervix Not visualized due to late gest. age Uterus Gravid uterus Left Ovary Not visualized Right Ovary Not visualized RECOMMENDATIONS: 1. Patient is scheduled in four weeks for follow up growth ultrasound. 2. Subsequent follow up or other follow up as clinically determined by primary OB provider unless otherwise specified by MFM. 3. Results forwarded to ordering provider so they can follow up with the patient as necessary. Kei Clifton MD Electronically Signed Final Report 08/13/2020 16:23 IMPRESSION: IMPRESSION: 1. Single intrauterine gestation with EFW at the 91st percentile. AC measures at the 99th percentile. 2. Amniotic fluid volume assessment is normal. us Yariel Velazquez MD [facility] ORDERABLES Final Result documented in this encounter Visit Diagnoses Diagnosis Gestational diabetes mellitus (GDM) in second trimester, gestational diabetes method of control unspecified- Primary Multigravida of advanced maternal age in second trimester History of bariatric surgery Bariatric surgery status BMI 38.0-38.9,adult Gestational diabetes mellitus (GDM) in second trimester, gestational diabetes method of control unspecified Multigravida of advanced maternal age in second trimester History of bariatric surgery Bariatric surgery status BMI 38.0-38.9,adult Bariatric surgery status complicating , unspecified trimester documented in this encounter Care Teams Bond Runner Relationship Specialty Start Date End Date Mariya Grossman MD [address] [place] [address] PCP - General Family Medicine 02/06/19 documented as of this encounter
--- OUTSIDE RECORDS SUMMARY | 2025-01-22 21:26 | XMS_ITS | Encounter Summary ---
Author Organization [facility] Address [address] [place] [address] Care Team Providers Care Alcoholism Worker Name Role Phone Mariya Grossman MD Primary Care Provider [phone] Mariya Grossman MD Unavailable Nam Pickens LPC Unavailable Unavailable Encounter Details Date Type Department Care Team (Late st Contact Info) Description 10/04/2024 Results Follow-Up [facility] Medicine [address] [place] [address] Josefina Carrillo NP [address] [place], [place] [id number] [facility] IRON+TIBC PNL SERPL, ALL VITAMIN B1 (THIAMINE) WHOLE BL Social History Tobacco Use Types Packs/Day Years [...] How often do you attend chur or orthodoxy services? More than 4 times per year 02/07/2024 Do you belong to any clubs o r organizations such as jainism groups, unions, fraGraffle or athletic groups, or school groups? No [...] and heating? Not hard at all 02/07/2024 [facility] - Occupational [...] place to sleep or slept in a long-term (including now)? No 11/13/2022 Housing Stability Vital Sign Answer Kamran e Recorded In the last 12 months, was t here a time when you were not able to pay the mortgage or rent on time? No 02/07/2024 In the past 12 months, how m any times have you moved where you were living? 0 02/07/2024 At any time in the past 12 m [facility], were you homeless or living in a long-term (including now)? No 02/07/2024 Comments Unknown Sex [...] Health [address] [place] [address] [place] [address] Nam Pickens LPC 02/01/2025 4:30 PM EDT Social Work [facility] [address] [place] [address] [place] [address] Nam Pickens LPC 02/19/2025 4:00 PM EST Procedure Visit [facility] [place] [facility] [address] [place] [phone] Sean Garza DO [address] [facility] [place] [address] 03/13/2025 4:30 PM EST Social Work [facility] [address] [facility] [address] [place] [address] Nam Pickens LPC 03/27/2025 4:30 PM EST Social Work [facility] [address] [facility] [address] [place] [address] Nam Pickens LPC documented as of this encounter Visit Diagnoses Not on filedocumented in this encounter Care Teams Alcoholism Worker Relationship Specialty Start Date End Date Mariya Grossman MD [address] [place] [address] PCP - General Family Medicine 11/11/22 Mariya Grossman MD [address] [place] [address] PCP - Medical [facility] 05/13/19 01/10/25 Nam Pickens LPC Therapist Behavioral Health 10/09/24 documented as of this encounter
--- OUTSIDE RECORDS SUMMARY | 2025-01-22 21:26 | XMS_ITS | Encounter Summary ---
Author Organization [facility] Address [address] [place] [address] Care Team Providers Care Honing Machine Set Up Operator Tool Name Role Phone Mariya Grossman MD Primary Care Provider [phone] Nam Pickens LPC Unavailable Unavailable Encounter Details Date Type Department Care Team (Late st Contact Info) Description 01/16/2025 Bamboo flowsheet [facility] [address] [place] [address] Nam Pickens LPC Social History Tobacco Use [...] often do you attend chur ch or mormon services? More than 4 times per year 02/07/2024 Do you belong to any clubs o r organizations such as restoration groups, unions, fraternal or athletic groups, or [...] and heating? Not hard at all 02/07/2024 [facility] - [...] any time in the past 12 m [facility], were you homeless or living in a [...] [facility] [address] [facility] [address] [place] [address] Nam Pickens LPC 02/01/2025 4:30 PM EDT Social Work [facility] [address] [facility] [address] [place] [address] Nam Pickens GOLF CADDIE 02/19/2025 4:00 PM EST Procedure Visit [facility] [place] [facility] [address] [place] [address] Sean Garza DO [address] [place] [address] 03/13/2025 4:30 PM EST Social Work [facility] [address] [place] [address] Nam Pickens LPC 03/27/2025 4:30 PM EST Social Work [facility] [address] [place] [address] Nam Pickens LPC documented as of this encounter Visit Diagnoses Not on filedocumented in this encounter Care Teams Honing Machine Set Up Operator Tool Relationship Specialty Start Date End Date Mariya Grossman MD [address] [place] [address] PCP - General Family Medicine 11/11/22 Nam Pickens LPC Therapist Behavioral Health 10/09/24 documented as of this encounter
--- OUTSIDE RECORDS SUMMARY | 2025-01-22 21:26 | XMS_ITS | Encounter Summary ---
Author Organization [facility] Healthcare Address [address] [place] [address] Care Team Providers Care Television Maintenance Man Name Role Phone Mariya Grossman MD Primary Care Provider [phone] Nam Pickens LPC Unavailable Unavailable Encounter Details Date Type Department Care Team (Latest Contact Info) Description 01/11/2025 Travel Social History Tobacco Use Types Packs/Day Years [...] often do you attend chur ch or hoahaoism services? More than 4 times per year 02/07/2024 Do you belong to any clubs o r organizations such as hoahaoism groups, unions, fraternal or athletic groups, or [...] and heating? Not hard at all 02/07/2024 [facility] - [...] any time in the past 12 m [facility], were you homeless or living in a m[facility]p (including now)? No 02/07/2024 Comments Unknown Sex [...] [address] [facility] [address] [place] [address] Nam Pickens LPC 02/01/2025 4:30 PM EDT Social Work [facility] [address] [facility] [address] [place] [address] Nam Pickens LPC 02/19/2025 4:00 PM EST Procedure Visit [facility] [place] [facility] [address] [place] [address] Sean Garza DO [address] [facility] [address] [place] [place], [place] [id number] 03/13/2025 4:30 PM EST Social Work [facility] [address] [place] [address] [place] [address] Nam Pickens LPC 03/27/2025 4:30 PM EST Social Work [facility] [address] [place] [address] [place] [address] Nam Pickens LPC documented as of this encounter Visit Diagnoses Not on filedocumented in this encounter Care Teams Television Maintenance Man Relationship Specialty Start Date End Date Mariya Grossman MD [address] [place] [address] PCP - General Family Medicine 11/11/22 Nam Pickens LPC Therapist Behavioral Health 10/09/24 documented as of this encounter
--- OUTSIDE RECORDS SUMMARY | 2025-01-22 21:26 | XMS_ITS | Encounter Summary ---
Author Organization [facility] tem Address [id number] [address] [place] [address] Care Team Providers Care Sugarcane Research Technician Name Role Phone Mariya Grossman MD Primary Care Provider [phone] Encounter Details Date Type Department Care Team (Late st Contact Info) Description 08/05/2020 Telephone Maternal- Medicine at [facility] [address] [facility] [place] [address] Gay Luis CNA Social History Tobacco Use Types Packs/Day Years [...] on filedocumented in this encounter Care Teams Sugarcane Research Technician Relationship Specialty Start Date End Date Mariya Grossman MD [address] [place] [address] PCP - General Family Medicine 02/06/19 documented as of this encounter
--- OUTSIDE RECORDS SUMMARY | 2025-01-22 21:26 | XMS_ITS | Encounter Summary ---
Author Organization [facility] tem Address [id number] [address] [place] [address] Care Team Providers Care Quality Assurance Qa Lab Analyst Name Role Phone Mariya Grossman MD Primary Care Provider [phone] Reason for Referral * Diagnostic Imaging (Routine) - Closed Specialty Diagnoses / Procedures Referred By Contac t Referred To Contact Maternal and Medicine Diagnoses Gestational diabetes mellitus (GDM) in second trimester, gestational diabetes method of control unspecified Multigravida of advanced maternal age in second trimester History of bariatric surgery BMI 38.0-38.9,adult Procedures US MFM with or without consult Kei Clifton MD Maternal- Medicine at [address] [address] Phone: tel: fax: Referral ID Status Reason Start Date Expiration Date Visits Re quested Visits Authorized [id number] Closed 08/14/2020 08/14/2021 1 1 Encounter Details Date Type Department Care Team (Late st Contact Info) Description 08/14/2020 Orders Only Maternal- Medicine at [address] [address] Kei Clifton MD Gestational diabetes mellitus (GDM) in second trimester, [...] have Coronavirus / COVID-19? No / Unsure 08/13/2020 3:15 PM EDT documented as of this encounter Plan of Treatment Not on file documented as of this encounter Results * [facility] OB FOLLOW-UP, 1 FETUS (09/13/2020 12:15 PM EDT) Anatomical Region Laterality Modality Pelvis Ultrasound 09/13/2020 10:2 1 AM EDT Impressions 09/13/2020 11:02 AM EDT IMPRESSION: 1. Single intrauterine gestation with EFW at the 96th percentile. AC measures greater than the 99th percentile. 2. Amniotic fluid volume assessment is normal. 3. No obvious anatomical abnormalities were demonstrated, although exam suboptimal secondary to type of exam performed and late gestational age. Narrative 09/13/2020 11:02 AM EDT OBSTETRICS REPORT (Signed Final 09/13/2020 11:02) PATIENT INFO: ID #: [id number] : [birth year] (35 yrs)(F) Name: ALLAN OAKES Visit Date: 09/13/2020 10:21 PERFORMED BY: Performed By: Aaron Pro RDMS Attending: Yariel Velazquez MD Referred By: Sean Jones. Address: [address] [place] [address] [place] [address] Location: [facility]aternal Medicine [place] SERVICE(S) PROVIDED: OB Follow-up, 1 fetus [id number] INDICATIONS: Previous bariatric surgery status affecting O99.840 , antepartum Gestational diabetes mellitus in O24.419 Supervision of elderly (over 35 years), O09..519 antepartum VITAL SIGNS: Weight (lb): 266 Height: 5'9 BMI: 39.28 EVALUATION: Num Of Fetuses: 1 Heart Rate(bpm): 142 Cardiac Activity: Present & appears normal Presentation: Cephalic Placenta: Anterior, away from cervical os Amniotic Fluid GRUPO FV: Subjectively within normal limits GRUPO Sum(cm) %Tile Largest Pocket(cm) 10.64 23 4.94 RUQ(cm) RLQ(cm) LUQ(cm) LLQ(cm) 2.19 0 3.51 4.94 BIOMETRY: BPD: 87.8 mm G.Age: 35w 3d 91 % OFD: 112.1 mm HC: 318.6 mm G.Age: 35w 6d 73 % AC: 333.8 mm G.Age: 37w 2d > 99 % FL: 64.4 mm G.Age: 33w 2d 30 % HUM: 57.6 mm G.Age: 33w 3d 55 % CER: 45.5 mm G.Age: 35w 0d 80 % LV: 4.7 mm CM: 9 mm TIB: 57.9 mm G.Age: 33w 6d 68 % CI: 78.3 % 70 - 86 FL/HC: 20.2 % 19.4 - 21.8 HC/AC: 0.95 0.96 - 1.11 FL/BPD: 73.3 % 71 - 87 FL/AC: 19.3 % 20 - 24 Est. FW: 2808 gm 6 lb 3 oz 96 % OB HISTORY: : 3 Term: 1 [place]: 1 GESTATIONAL AGE: LMP: 33w 4d Date: 01/22/20 EL: 10/28/20 U/S Today: 35w 3d EL: 10/15/20 Best: 33w 4d Det. By: LMP (01/22/20) EL: 10/28/20 ANATOMY: Cranium: Appears normal Cavum: Appears normal Ventricles: Appear normal Cerebellum: Appears normal Posterior Fossa: Appears normal Diaphragm: Appears normal Stomach: Appears normal, left sided Cord Vessels: Appears normal (3 vessel cord) Kidneys: Appear normal Bladder: Appears normal CERVIX UTERUS ADNEXA: Cervix Not visualized due to late gest. age Uterus Gravid uterus Left Ovary Not visualized Right Ovary Not visualized COMMENTS: Ultrasound is not diagnostic for chromosomal abnormalities, will not detect all structural abnormalities, and is not diagnostic for genetic disorders even if multiple exams are performed during a given . RECOMMENDATIONS: 1. Subsequent follow up or other follow up as clinically determined by primary OB provider unless otherwise specified by MFM. 2. Results forwarded to ordering provider so they can follow up with the patient as necessary. Clinical correlation recommended regarding growth. Exam read and report completed by post visit review of archived imaging. Please let our office know if additional imaging or surveillance services are needed and are not already scheduled. Yariel Velazquez MD Electronically Signed Final Report 09/13/2020 11:02 Procedure Note Yariel Velazquez MD - 09/13/2020 OBSTETRICS REPORT (Signed Final 09/13/2020 11:02) PATIENT INFO: ID #: [id number] : [birth year] (35 yrs)(F) Name: ALLAN OAKES Visit Date: 09/13/2020 10:21 PERFORMED BY: Performed By: Aaron Pro RDMS Attending: Yariel Velazquez MD Referred By: Sean Garza DO Ref. Address: [address] [place] [address] Dr. [place] [address] Location: Maternal Medicine [place] SERVICE(S) PROVIDED: OB Follow-up, 1 fetus [id number] INDICATIONS: Previous bariatric surgery status affecting O99.840 , antepartum Gestational diabetes mellitus in O24.419 Supervision of elderly (over 35 years), O09..519 antepartum VITAL SIGNS: Weight (lb): 266 Height: 5'9 BMI: 39.28 EVALUATION: Num Of Fetuses: 1 Heart Rate(bpm): 142 Cardiac Activity: Present & appears normal Presentation: Cephalic Placenta: Anterior, away from cervical os Amniotic Fluid GRUPO FV: Subjectively within normal limits GRUPO Sum(cm) %Tile Largest Pocket(cm) 10.64 23 4.94 RUQ(cm) RLQ(cm) LUQ(cm) LLQ(cm) 2.19 0 3.51 4.94 BIOMETRY: BPD: 87.8 mm G.Age: 35w 3d 91 % OFD: 112.1 mm HC: 318.6 mm G.Age: 35w 6d 73 % AC: 333.8 mm G.Age: 37w 2d > 99 % FL: 64.4 mm G.Age: 33w 2d 30 % HUM: 57.6 mm G.Age: 33w 3d 55 % CER: 45.5 mm G.Age: 35w 0d 80 % LV: 4.7 mm CM: 9 mm TIB: 57.9 mm G.Age: 33w 6d 68 % CI: 78.3 % 70 - 86 FL/HC: 20.2 % 19.4 - 21.8 HC/AC: 0.95 0.96 - 1.11 FL/BPD: 73.3 % 71 - 87 FL/AC: 19.3 % 20 - 24 Est. FW: 2808 gm 6 lb 3 oz 96 % OB HISTORY: : 3 Term: 1 [place]: 1 GESTATIONAL AGE: LMP: 33w 4d Date: 01/22/20 EL: 10/28/20 U/S Today: 35w 3d EL: 10/15/20 Best: 33w 4d Det. By: LMP (01/22/20) EL: 10/28/20 ANATOMY: Cranium: Appears normal Cavum: Appears normal Ventricles: Appear normal Cerebellum: Appears normal Posterior Fossa: Appears normal Diaphragm: Appears normal Stomach: Appears normal, left sided Cord Vessels: Appears normal (3 vessel cord) Kidneys: Appear normal Bladder: Appears normal CERVIX UTERUS ADNEXA: Cervix Not visualized due to late gest. age Uterus Gravid uterus Left Ovary Not visualized Right Ovary Not visualized COMMENTS: Ultrasound is not diagnostic for chromosomal abnormalities, will not detect all structural abnormalities, and is not diagnostic for genetic disorders even if multiple exams are performed during a given . RECOMMENDATIONS: 1. Subsequent follow up or other follow up as clinically determined by primary OB provider unless otherwise specified by MFM. 2. Results forwarded to ordering provider so they can follow up with the patient as necessary. Clinical correlation recommended regarding growth. Exam read and report completed by post visit review of archived imaging. Please let our office know if additional imaging or surveillance services are needed and are not already scheduled. Yariel Velazquez MD Electronically Signed Final Report 09/13/2020 11:02 IMPRESSION: IMPRESSION: 1. Single intrauterine gestation with EFW at the 96th percentile. AC measures greater than the 99th percentile. 2. Amniotic fluid volume assessment is normal. 3. No obvious anatomical abnormalities were demonstrated, although exam suboptimal secondary to type of exam performed and late gestational age. Kei Clifton MD G US ORDERABLES Final Result documented in this encounter [...] trimester documented in this encounter Care Teams Quality Assurance Qa Lab Analyst Relationship Specialty Start Date End Date Mariya Grossman MD [address] [place] [address] PCP - General Family Medicine 02/06/19 documented as of this encounter
--- OUTSIDE RECORDS SUMMARY | 2025-01-22 21:26 | XMS_ITS | Encounter Summary ---
Author Organization [facility] Healthcare Address [address] [place] [address] Care Team Providers Care Embedded Linux Developer Name Role Phone Mariya Grossman MD Primary Care Provider [phone] Nam Pickens LPC Unavailable Unavailable Encounter Details Date Type Department Care Team (Latest Contact Info) Description 01/16/2025 Travel Social History Tobacco Use Types Packs/Day [...] often do you attend chur ch or orthodoxy services? More than 4 times per year 02/07/2024 Do you belong to any clubs o r organizations such as uatsdin groups, unions, fraternal or athletic groups, or [...] and heating? Not hard at all 02/07/2024 [facility] - Occupational [...] place to sleep or slept in a half-way (including now)? No 11/13/2022 Housing Stability Vital Sign Answer Kamran e Recorded In the last 12 months, was t here a time when you were not able to pay the mortgage or rent on time? No 02/07/2024 In the past 12 months, how m any times have you moved where you were living? 0 02/07/2024 At any time in the past 12 m [facility], were you homeless or living in a half-way (including now)? No 02/07/2024 Comments Unknown Sex [...] [facility] [address] [facility] [address] [place] [address] Nam Pickens LPC 02/01/2025 4:30 PM EDT Social Work [facility] [address] [facility] [address] [place] [address] Nam Pickens LPC 02/19/2025 4:00 PM EST Procedure Visit [facility] [place] [facility] [address] [place] [phone] Sean Garza DO [address] [place]rystal Kumar, [place] [id number] 03/13/2025 4:30 PM EST Social Work [facility] [address] [place] [address] [place] [address] Nam Pickens LPC 03/27/2025 4:30 PM EST Social Work [facility] [address] [place] [address] [place] [address] Nam Pickens LPC documented as of this encounter Visit Diagnoses Not on filedocumented in this encounter Care Teams Embedded Linux Developer Relationship Specialty Start Date End Date Mariya Grossman MD [address] [place] [address] PCP - General Family Medicine 11/11/22 Nam Pickens LPC Therapist Behavioral Health 10/09/24 documented as of this encounter
--- OUTSIDE RECORDS SUMMARY | 2025-01-22 21:26 | XMS_ITS | Encounter Summary ---
Author Organization [facility] Healthcare Address [address] [place] [address] Care Team Providers Care Heat Treating Operator Name Role Phone Mariya Grossman MD Primary Care Provider [phone] Mariya Grossman MD Unavailable [phone] Mono Woodson LPN Unavailable [phone] Nam Pickens LPC Unavailable Unavailable Reason for Visit * Reason Onset Date Comments Med Refill 12/01/2023 Encounter Details Date Type Department Care Team (Late st Contact Info) Description 12/01/2023 Refill [facility] Family Medicine [address] [place] [address] Mariya Grossman MD [address] [place] [address] Antibiotic-induced yeast infection (Primary Dx) Social History Tobacco Use Types Packs/Day Years Used Date Smoking Tobacco: Former Cigarettes Q uit: 04/12/2014 Smokeless Tobacco: Never Alcohol Use Standard Drinks/Week Comments Not Currently 0 (1 standard drink = 0.6 oz pure alcohol) Caffeine intake: 4-5 coffee daily Humiliation, Afraid, Rape, and Kick questionnair e [...] How often do you attend chur or episcopalian services? Never 11/13/2022 Do you belong to any clubs o r organizations such as rastafarian groups, unions, fraternal or athletic groups, or [...] and heating? Not hard at all 11/13/2022 [facility] [...] money to buy more. Never true 11/14/19 Within the past 12 months, t he [...] place to sleep or slept in a group home (including now)? No 11/13/2022 Comments Unknown Sex and Gender Information Value Date Recorded Sex Assigned at Not on file Legal Sex Female 6:37 PM EDT Gender Identity Not on file Sexual Orientation Not on file documented as of this encounter Miscellaneous Notes * Telephone Encounter - Mariya Grossman MD - 12/01/2023 7:50 PM EDT Approving, but needs appt for additional refills. documented in this encounter Plan of Treatment Upcoming Encounters Date Type Department Care Team (Late st Contact Info) Description 01/23/2025 4:30 PM EDT Social Work [facility] [address] [facility] [address] [place] [phone] Nam Pickens LPC 02/01/2025 4:30 PM EDT Social Work [facility] [address] [place] [address] [place] [address] Nam Pickens LPC 02/19/2025 4:00 PM EST Procedure Visit [facility] [place] [address] [place] [address] [place] [address] Sean Garza, [address] [place] [address] 03/13/2025 4:30 PM EST Social Work [facility] [address] [place] [address] [place] [phone] Nam Pickens LPC 03/27/2025 4:30 PM EST Social Work [facility] [address] [place] [address] [place] [phone] Nam Pickens LPC documented as of this encounter Visit Diagnoses Diagnosis Antibiotic-induced yeast infection- Primary documented in this encounter Care Teams Heat Treating Operator Relationship Specialty Start Date End Date Mariya Grossman MD [address] [place] [address] PCP - General Family Medicine 11/11/22 Mariya Grossman MD [address] [place] [address] PCP - Medical [employer] 05/13/19 01/10/25 Mono Woodson LPN [address] [facility] [address] [place] [address] Licensed Practical Nurse Family Medicine 03/28/2406/05 Nam Pickens LPC Therapist Behavioral Health 10/09/24 documented as of this encounter
--- OUTSIDE RECORDS SUMMARY | 2025-01-22 21:26 | XMS_ITS | Encounter Summary ---
Author Organization [employer] tem Address [id number] [address] [place] [address] Care Team Providers Care Weight Loss Consultant Name Role Phone Mariya Grossman MD Primary Care Provider [phone] Reason for Referral * Diagnostic Imaging (Routine) [...] consult Kei Clifton MD Maternal- Medicine at [address] [address] Phone: tel: fax: Referral ID Status Reason Start Date Expiration Date Visits Re quested Visits Authorized [id number] Closed 06/19/2020 06/19/2021 1 1 Encounter Details Date Type Department Care Team (Late st Contact Info) Description 06/19/2020 Orders Only Maternal- Medicine at [address] [phone] Kei Clifton MD Gestational diabetes mellitus (GDM) [...] have Coronavirus / COVID-19? No / Unsure 06/19/2020 9:44 AM EST documented as of this encounter Plan of Treatment Not on file documented as of this encounter Results * [facility] COMPREHENSIVE ANATOMIC SURVEY (07/17/2020 10:38 AM EDT) Anatomical Region Laterality Modality Pelvis Ultrasound 07/17/2020 10:3 3 AM EDT Impressions 07/17/2020 11:28 AM EDT IMPRESSION: 1. Single intrauterine with estimated weight the 89th percentile. abdominal circumference measures above typical expected usual range of measurement. 2. No sonographic evidence of gross structural abnormality disclosed. 3. Amniotic fluid volume assessment is normal. Narrative 07/17/2020 11:28 AM EDT OBSTETRICS REPORT (Signed Final 07/17/2020 11:28) PATIENT INFO: ID #: [id number] : [birth year] (35 yrs)(F) Name: ALLAN OAKES Visit Date: 07/17/2020 10:33 PERFORMED BY: Performed By: Swathi Plummer RDMS Attending: Yariel Velazquez MD Referred By: Sean Garza DO Ref. Address: [address] [place] [address] [place] [address] Location: [facility] [place] SERVICE(S) PROVIDED: Comprehensive Anatomic Survey 71825 INDICATIONS: Screening for anatomic survey Z36.89 Previous bariatric surgery status affecting O99.840 , antepartum Gestational diabetes mellitus in O24.419 Supervision of elderly (over 35 years), O09..519 antepartum VITAL SIGNS: Height: 5'9 EVALUATION: Num Of Fetuses: 1 Cardiac Activity: Present & appears normal Presentation: Cephalic Placenta: Anterior Rt Lat, away from cervical os Amniotic Fluid GRUPO FV: Subjectively within normal limits GRUPO Sum(cm) %Tile Largest Pocket(cm) 14.71 50 5 RUQ(cm) RLQ(cm) LUQ(cm) LLQ(cm) 3.58 5 3.22 2.91 BIOMETRY: BPD: 63.9 mm G.Age: 25w 6d 62 % OFD: 84.5 mm HC: 237.9 mm G.Age: 25w 6d 48 % AC: 229.4 mm G.Age: 27w 2d 92 % FL: 47.2 mm G.Age: 25w 5d 51 % HUM: 42.5 mm G.Age: 25w 4d 49 % CER: 29.3 mm G.Age: 25w 5d 70 % LV: 4.2 mm CM: 7.8 mm TIB: 43 mm G.Age: 26w 4d 77 % CI: 75.6 % 70 - 86 FL/HC: 19.8 % 18.7 - 20.3 HC/AC: 1.04 1.04 - 1.22 FL/BPD: 73.9 % 71 - 87 FL/AC: 20.6 % 20 - 24 Est. FW: 949 gm 2 lb 1 oz 89 % OB HISTORY: : 3 Term: 1 [place]: 1 GESTATIONAL AGE: LMP: 25w 2d Date: 01/22/20 EL: 10/28/20 U/S Today: 26w 1d EL: 10/22/20 Best: 25w 2d Det. By: LMP (01/22/20) EL: 10/28/20 TARGETED ANATOMY: Central Nervous System Calvarium/Cranial V.: Appears normal Intracranial Katelyn: Appears normal Cavum: Appears normal Parenchyma: Appears normal Lateral Ventricles: Appears normal Choroid Plexus: Appears normal Cereb./Vermis: Appears normal Cisterna Magna: Appears normal Midline Falx: Appears normal Spine Cervical: Appears normal Thoracic: Appears normal Lumbar: Appears normal Sacral: Appears normal Shape/Curvature: Appears normal Head/Neck Face: Appears normal Lips: Appears normal Neck: Appears normal Nasal Bone: Appears normal Palate: Appears normal Profile: Appears normal Orbits/Eyes: Appears normal Mandible: Appears normal Maxilla: Appears normal Thorax Thoracic Contour: Appears normal Lungs: Appears normal 4 Chamber View: Appears normal Cardiac Motion: Appears normal Cardiac Rhythm: Normal Rt Outflow Tract: Previously seen Lt Outflow Tract: Previously seen Aortic Arch: Appears normal Ductal Arch: Appears normal SVC: Appears normal Cardiac [place]: Normal Diaphragm: Appears normal 3 Vessel View: Previously seen IVC: Appears normal Crossing: Appears normal Abdomen Ventral Wall: Appears normal Cord Insertion: Appears normal Situs: Previously seen Stomach: Appears normal Lt Kidney: Appears normal Rt Kidney: Appears normal Bladder: Appears normal Bowel: Appears normal Extremities Lt Humerus: Appears normal Rt Humerus: Appears normal Lt Forearm: Appears normal Rt Forearm: Appears normal Lt Hand: Appears normal Rt Hand: Appears normal Lt Femur: Appears normal Rt Femur: Appears normal Lt Lower Leg: Appears normal Rt Lower Leg: Appears normal Lt Foot: Appears normal Rt Foot: Appears normal Other Umbilical Cord: Appear normal Masses: None visualized Genitalia: Male CERVIX UTERUS ADNEXA: Cervix Normal appearance by abdominal scan Uterus Gravid uterus Left Ovary Not visualized Right Ovary Not visualized Cul [place] Sac No fluid seen Adnexa No adnexal masses identified COMMENTS: 1. Ultrasound is not diagnostic for chromosomal abnormalities, will not detect all structural abnormalities, and is not diagnostic for genetic disorders even if multiple exams are performed during a given . RECOMMENDATIONS: 1. Patient is scheduled in four weeks for follow up growth ultrasound. 2. Results forwarded to ordering provider so they can follow up with the patient as necessary. 3. Provider clinical correlation regarding growth recommended. Yariel Velazquez MD Electronically Signed Final Report 07/17/2020 11:28 Procedure Note Yariel Velazquez MD - 07/17/2020 OBSTETRICS REPORT (Signed Final 07/17/2020 11:28) PATIENT INFO: ID #: [id number] : [birth year] (35 yrs)(F) Name: ALLAN OAKES Visit Date: 07/17/2020 10:33 PERFORMED BY: Performed By: Swathi Plummer [facility] Attending: Yariel Velazquez MD Referred By: Sean Jones. Address: [address] [place] [address] [place] [address] Location: [facility] [place] SERVICE(S) PROVIDED: Comprehensive Anatomic Survey 11968 INDICATIONS: Screening for anatomic survey Z36.89 Previous bariatric surgery status affecting O99.840 , antepartum Gestational diabetes mellitus in O24.419 Supervision of elderly (over 35 years), O09..519 antepartum VITAL SIGNS: Height: 5'9 EVALUATION: Num Of Fetuses: 1 Cardiac Activity: Present & appears normal Presentation: Cephalic Placenta: Anterior Rt Lat, away from cervical os Amniotic Fluid GRUPO FV: Subjectively within normal limits GRUPO Sum(cm) %Tile Largest Pocket(cm) 14.71 50 5 RUQ(cm) RLQ(cm) LUQ(cm) LLQ(cm) 3.58 5 3.22 2.91 BIOMETRY: BPD: 63.9 mm G.Age: 25w 6d 62 % OFD: 84.5 mm HC: 237.9 mm G.Age: 25w 6d 48 % AC: 229.4 mm G.Age: 27w 2d 92 % FL: 47.2 mm G.Age: 25w 5d 51 % HUM: 42.5 mm G.Age: 25w 4d 49 % CER: 29.3 mm G.Age: 25w 5d 70 % LV: 4.2 mm CM: 7.8 mm TIB: 43 mm G.Age: 26w 4d 77 % CI: 75.6 % 70 - 86 FL/HC: 19.8 % 18.7 - 20.3 HC/AC: 1.04 1.04 - 1.22 FL/BPD: 73.9 % 71 - 87 FL/AC: 20.6 % 20 - 24 Est. FW: 949 gm 2 lb 1 oz 89 % OB HISTORY: : 3 Term: 1 [place]: 1 GESTATIONAL AGE: LMP: 25w 2d Date: 01/22/20 EL: 10/28/20 U/S Today: 26w 1d EL: 10/22/20 Best: 25w 2d Det. By: LMP (01/22/20) EL: 10/28/20 TARGETED ANATOMY: Central Nervous System Calvarium/Cranial V.: Appears normal Intracranial Katelyn: Appears normal Cavum: Appears normal Parenchyma: Appears normal Lateral Ventricles: Appears normal Choroid Plexus: Appears normal Cereb./Vermis: Appears normal Cisterna Magna: Appears normal Midline Falx: Appears normal Spine Cervical: Appears normal Thoracic: Appears normal Lumbar: Appears normal Sacral: Appears normal Shape/Curvature: Appears normal Head/Neck Face: Appears normal Lips: Appears normal Neck: Appears normal Nasal Bone: Appears normal Palate: Appears normal Profile: Appears normal Orbits/Eyes: Appears normal Mandible: Appears normal Maxilla: Appears normal Thorax Thoracic Contour: Appears normal Lungs: Appears normal 4 Chamber View: Appears normal Cardiac Motion: Appears normal Cardiac Rhythm: Normal Rt Outflow Tract: Previously seen Lt Outflow Tract: Previously seen Aortic Arch: Appears normal Ductal Arch: Appears normal SVC: Appears normal Cardiac [place]: Normal Diaphragm: Appears normal 3 Vessel View: Previously seen IVC: Appears normal Crossing: Appears normal Abdomen Ventral Wall: Appears normal Cord Insertion: Appears normal Situs: Previously seen Stomach: Appears normal Lt Kidney: Appears normal Rt Kidney: Appears normal Bladder: Appears normal Bowel: Appears normal Extremities Lt Humerus: Appears normal Rt Humerus: Appears normal Lt Forearm: Appears normal Rt Forearm: Appears normal Lt Hand: Appears normal Rt Hand: Appears normal Lt Femur: Appears normal Rt Femur: Appears normal Lt Lower Leg: Appears normal Rt Lower Leg: Appears normal Lt Foot: Appears normal Rt Foot: Appears normal Other Umbilical Cord: Appear normal Masses: None visualized Genitalia: Male CERVIX UTERUS ADNEXA: Cervix Normal appearance by abdominal scan Uterus Gravid uterus Left Ovary Not visualized Right Ovary Not visualized [place] Sac No fluid seen Adnexa No adnexal masses identified COMMENTS: 1. Ultrasound is not diagnostic for chromosomal abnormalities, will not detect all structural abnormalities, and is not diagnostic for genetic disorders even if multiple exams are performed during a given . RECOMMENDATIONS: 1. Patient is scheduled in four weeks for follow up growth ultrasound. 2. Results forwarded to ordering provider so they can follow up with the patient as necessary. 3. Provider clinical correlation regarding growth recommended. Yariel Velazquez MD Electronically Signed Final Report 07/17/2020 11:28 IMPRESSION: IMPRESSION: 1. Single intrauterine with estimated weight the 89th percentile. abdominal circumference measures above typical expected usual range of measurement. 2. No sonographic evidence of gross structural abnormality disclosed. 3. Amniotic fluid volume assessment is normal. us Kei Clifton MD [facility] US ORDERABLES Final Result documented in this [...] bariatric surgery Bariatric surgery status BMI 38.0-38.9,adult Encounter for other specified screening Bariatric surgery status complicating , unspecified trimester documented in this encounter Care Teams Weight Loss Consultant Relationship Specialty Start Date End Date Mariya Grossman MD [address] [place] [address] PCP - General Family Medicine 02/06/19 documented as of this encounter
--- OUTSIDE RECORDS SUMMARY | 2025-01-22 21:26 | XMS_ITS | Encounter Summary ---
Author Organization [facility] Healthcare Address [address] [place] [address] Care Team Providers Care Elevator Constructor Hydraulic Name Role Phone Mariya Grossman MD Primary Care Provider [phone] Mariya Grossman MD Unavailable [phone] Mono Woodson LPN Unavailable [phone] Nam Pickens LPC Unavailable Unavailable Encounter Details Date Type Department Care Team (Late st Contact Info) Description 08/30/2023 Abstract [facility] Family Medicine [address] [place] [phone] Mariya Grossman MD [address] [place] [address] Social History Tobacco Use Types [...] How often do you attend chur or tenriism services? Never 11/13/2022 Do you belong to any clubs o r organizations such as hinduism groups, unions, fraternal or athletic groups, or [...] and heating? Not hard at all 11/13/2022 [facility] - Occupational Stress Questionnaire Answer Date [...] place to sleep or slept in a long term (including now)? No 11/13/2022 Comments Unknown Sex [...] [facility] [address] [address] [place] [address] Nam Pickens LPC 02/01/2025 4:30 PM EDT Social Work [facility] [address] [facility] [address] [place] [address] Nam Pickens [facility] 02/19/2025 4:00 PM EST Procedure Visit [facility] [place] [address] [facility] [facility] [place] [id number] Sean Garza DO [address] [facility] [address] Kumar, [place] [id number] 03/13/2025 4:30 PM EST Social Work [facility] [address] [facility] [address] [place] [address] Nam Pickens [facility] 03/27/2025 4:30 PM EST Social Work [facility] [address] [place] [address] [place] [address] Nam Pickens LPC documented as of this encounter Visit Diagnoses Not on filedocumented in this encounter Care Teams Elevator Constructor Hydraulic Relationship Specialty Start Date End Date Mariya Grossman MD [address] [place], [place] [id number] PCP - General Family Medicine 11/11/22 Mariya Grossman MD [address] [place], [place] [id number] PCP - Medical [employer] 05/13/19 01/10/25 Mono Woodson, TOM [address] [place] [phone] Licensed Practical Nurse Family Medicine 03/28/2406/05 Nam Pickens LPC Therapist Behavioral Health 10/09/24 documented as of this encounter
--- OUTSIDE RECORDS SUMMARY | 2025-01-22 21:27 | XMS_ITS | CCD ---
Author Organization [facility] Care Team Providers Care Psychiatric Clinical Nurse Specialist Name Role Phone JANA, DR HALEY Admitting [...] Unavailable REIEBLINA, DR NIHARIKA Brambila Consulting Unavailable PALAK HASTINGS Consulting Unavailable JANA, DR HALEY Admitting Unavailable JANA, DR HALEY Attending Unavailable JANA, DR HALEY Consulting Unavailable YAMILKA, DR BASSETT Primary Care Unavailable REIEBER, DR NIHARIKA Brambila Consulting Unavailable JANA, DR HALEY Attending Unavailable JANA, DR HALEY Admitting Unavailable YAMILKA, DR BASSETT Primary Care Unavailable JANA, DR HALEY Consulting Unavailable ZIEBER, DR NIHARIKA Brambila Consulting Unavailable JANA, DR HALEY Admitting Unavailable JANA, DR HALEY Attending Unavailable YAMILKA, DR BASSETT Referring Unavailable JANA, DR HALEY Consulting Unavailable YAMILKA, DR BASSETT Primary Care Unavailable Butch Jason Consulting Unavailable JANA, DR HALEY Consulting Unavailable YAMILKA, DR BASSETT Primary Care Unavailable JANA, DR HALEY Admitting Unavailable JANA, DR HALEY Attending Unavailable KARASIK, DR HAMMOND Consulting Unavailable KARASIK, DR HAMMOND Admitting Unavailable KARASIK, DR HAMMOND Attending Unavailable YAMILKA, DR BASSETT Primary Care Unavailable PALAK HASTINGS Admitting Unavailable PALAK HASTINGS Attending Unavailable PALAK HASTINGS Consulting Unavailable YAMILKA, DR BASSETT Primary Care Unavailable YAMILKA, DR BASSETT Primary Care Unavailable VENKATA, PALAK Admitting Unavailable VENKATA, PALAK Attending Unavailable VENKATA, PALAK Consulting Unavailable VENKATA, PALAK Admitting Unavailable YAMILKA, DR BASSETT Primary Care Unavailable VENKATA, PALAK Attending Unavailable JANA, DR HALEY Consulting Unavailable ZIEBER, DR NIHARIKA Brambila Consulting Unavailable PALAK HASTINGS Consulting Unavailable JANA, DR HALEY Admitting Unavailable YAMILKA, DR BASSETT Primary Care Unavailable PALAK HASTINGS Consulting Unavailable JANA, DR HALEY Attending Unavailable WEST, DR BUTCH Russell Consulting Unavailable JANA, DR HALEY Attending Unavailable JANA, DR HALEY Admitting Unavailable YAMILKA, DR BASSETT Primary Care Unavailable JANA, DR HALEY Consulting Unavailable VENKATA, PALAK Admitting Unavailable YAMILKA, DR BASSETT Primary Care Unavailable VENKATA, PALAK Attending Unavailable VENKATA, PALAK Consulting Unavailable VENKATA, PALAK Admitting Unavailable AMALIA, DR BUTCH Russell Consulting Unavailable VENKATA, PALAK Attending Unavailable YAMILKA, DR BASSETT Primary Care Unavailable JANA, DR HALEY Consulting Unavailable JANA, DR HALEY Attending Unavailable JANA, DR HALEY Admitting Unavailable WEST, DR BUTCH Russell Consulting Unavailable YAMILKA, DR BASSETT Primary Care Unavailable JANA, DR HALEY Consulting Unavailable Mariya Prather Primary Care Provider [phone] Jorge BUNDY, Lakesha Brown Unavailable Mariya Prather MD Primary Care Provider Mariya Prather Primary Care Provider [phone] Mariya Prather MD Unavailable Palak Woodson LPN Unavailable MARIYA HUERTA Primary Care Unavailable Palak Lerma Attending Unavailable Lowell PACPalak Admitting Unavailable Karli, Nav Admitting Unavailable MARIYA HUERTA Primary Care Unavailable Kale Acevedo MD Consulting Unavailable Karli, Nav Attending Unavailable Refugio Sue Consulting Unavailable MARIYA HUERTA Primary Care Unavailable Refugio Sue Attending Unavailable Karli, Nav Admitting Unavailable MARIYA HUERTA Primary Care Unavailable Karli, Nav Attending Unavailable MARIYA PRATHER Primary Care Unavailable JOSEEN NICOLE Referring Unavailable Nam Mehta LPC Unavailable Unavailable Mariya Prather MD Primary Care Provider MARIYA PRATHER Primary Care Unavailable MARIYA PRATHER Primary Care Unavailable MARIYA PRATHER Primary Care Unavailable MARIYA PRATHER Primary Care Unavailable LEIGHA LAKE Attending Unavailable MARIYA PRATHER Primary Care Unavailable LOUDEN, NICOLE Attending Unavailable MARIYA PRATHER Primary Care Unavailable LOUDEN, NICOLE Attending Unavailable MARIYA PRATHER Primary Care Unavailable LOUDEN, NICOLE Attending Unavailable MARIYA PRATHER Primary Care Unavailable LOUDEN, NICOLE Attending Unavailable SELF Referring Unavailable MARIYA PRATHER Primary Care Unavailable TITUS TAYLOR Referring Unavailable MARIYA PRATHER Primary Care Unavailable Mariya Prather MD Primary Care Provider MARIYA PRATHER Referring Unavailable MARIYA PRATHER Primary Care Unavailable JOSEFINA CARRILLO Attending Unavailable MICK GARCIA Attending Unavailab MICK Shepherd Referring Unavailab MICK Shepherd Attending Unavailab NAM Sumner Attending Unavailable JOSEFINA CARRILLO Referring Unavailable NAM MEHTA Attending Unavailable ROBERTICKI, NAM Attending Unavailable MALICKI, NAM Attending Unavailable MALICKI, NAM Attending Unavailable MALICKI, NAM Attending Unavailable MALICKI, NAM Attending Unavailable LUIS EI, NAM Attending Unavailable JANINE, NAM Attending Unavailable JANINE, NAM Attending Unavailable LAKESHA PATEL Attending Unavailab MICK Shepherd Attending Unavailab le JANINE, NAM Attending Unavailable JANINE, NAM Attending Unavailable ROBERTICKYaron, NAM Attending Unavailable ROBERTICKI, NAM Attending Unavailable ROBERTICKI, NAM Attending Unavailable ROBERTICKI, NAM Attending Unavailable MALICKI, NAM Attending Unavailable Medications Current Medications Medication Drug Class(es) Dates Sig (Normalized) Sig (Original) amoxicillin 875 mg / clavulanate 125 mg oral tablet (7 sources) Penicillin-class Antibacterial Start: 05-10-2024 End: 05-20-2024 take 1 tablet by mouth in the morning amoxicillin-clavul anate (Augmentin) 875-125 MG tablet Indications: Acute non-recurrent pansinusitis Take 1 tablet (875 mg) by mouth in the morning and 1 tablet (875 mg) before bedtime. Do all this for 10 days. 20 tablet 05/10/2024 05/20/2024 Active Start: 02-07-2024 End: 02-15-2024 take 1 tablet by mouth in the morning amoxicillin-clavulanate (Augmentin) 875-125 MG tablet Indications: Acute left otitis media Take 1 tablet (875 mg) by mouth in the morning and 1 tablet (875 mg) before bedtime. Do all this for 7 days. 14 tablet 02/07/2024 02/15/2024 Discontinued (Therapy completed) aspirin 81 mg chewable tablet (1 source) Platelet Aggregation Inhibitor, Nonsteroidal Anti-inflammatory Drug aspirin 81 mg chewable tablet Chew 81 mg and swallow daily. Active azelastine hydrochloride 0.137 mg/actuat metered dose nasal spray (2 sources) Histamine-1 Receptor Antagonist Start: End: take 1 spray(s) nasal route in the morning Azelastine HCl 137 MCG/SPRAY solution Indications: Nasal congestion Administer 1 spray into affected nostril(s) in the morning. 30 mL 0 05/19/2023 06/18/2023 Active azithromycin 250 mg oral tablet (3 sources) Macrolide Antimicrobial Start: End: take 2 tablets by mouth once daily, then take 1 tablet by mouth once daily azithromycin (Zithromax) 250 MG tablet Indications: Upper respiratory tract infection, unspecified type Take 2 tablets (500 mg) by mouth Daily for 1 day, THEN 1 tablet (250 mg) Daily for 4 days. 6 tablet 06/15/2024 06/20/2024 Active benzonatate 100 mg oral capsule (4 sources) Non-narcotic Antitussive Start: End: take 1 capsule by mouth three times daily as needed for cough benzonatate (Tessalon Perles) 100 MG capsule Indications: Bronchitis Take 1 capsule (100 mg) by mouth 3 (three) times a day as needed for cough for up to 7 days Do not crush or chew. 20 capsule 02/08/2024 02/15/2024 Discontinued (Therapy completed) calcium polycarbophil (20 sources) End: take 1 tablet by mouth once daily polycarbophil (Fibercon) 625 MG tablet Take by mouth Daily 05/10/2024 Discontinued calcium polycarb ophil (FIBERCON ORAL) Take by mouth. Active Ethinyl Estradiol / Levonorgestrel (20 sources) Progestin, Estrogen, Progestin-containing Intrauterine Device Start: 12-27-2024 take 1 tablet by mouth once daily in the morning L norgest/e.estradiol-e.estrad (Seasonique) 0.15-0.03 &0.01 MG tablet tablet Indications: Uses control TAKE 1 TABLET BY MOUTH EVERY DAY IN THE MORNING 91 tablet 3 12/27/2024 Active Start: 12-01-2024 take 1 tablet by veronica th in the morning L norgest/e.estradiol-e.estrad (Ashlyna) 0.15-0.03 &0.01 MG tablet tablet Indications: Uses control Take 1 tablet by mouth in the morning. 91 tablet 12/01/2024 Active Start: 12-01-2023 take 1 tablet by veronica th in the morning L norgest/e.estradiol-e.estrad (Ashlyna) 0.15-0.03 &0.01 MG tablet tablet Indications: Uses control Take 1 tablet by mouth in the morning. 91 tablet 3 12/01/2023 Active Start: 03-31-2023 End: 06-30-2023 take 1 tablet by mouth in the morning Ashlyna 0.15-0.03 &0.01 MG tablet tablet Indications: Uses control Take 1 tablet by mouth in the morning. 91 tablet 0 03/31/2023 06/30/2023 Active take 1 tablet by veronica th once daily L norgest/e.estradioL-e.estrad (AMETHIA) 0.15 mg-30 mcg (84)/10 mcg (7) tablets,dose pack,3 month Take 1 tablet by mouth daily. Active famotidine 20 mg oral tablet (3 sources) Histamine-2 Receptor Antagonist take 1 tablet by mouth once daily famotidine (PEPCID) 20 mg tablet Take 20 mg by mouth daily. Active fluconazole 150 mg oral tablet (20 sources) Azole Antifungal Start: 4 End: 5 fluconazole (Diflucan) 150 MG tablet Indications: Antibiotic-induced yeast infection Take 1 tablet once; may repeat in 72 hours if symptoms are not improved 2 tablet 02/15/2024 Active Start: 12-24-2023 End: 12-24-2023 take 1 tablet by mouth once fluconazole (Diflucan) 150 MG tablet Indications: Candidiasis Take 1 tablet (150 mg) by mouth 1 (one) time for 1 dose 1 tablet 12/24/2023 12/24/2023 Active L-NORGEST/E.ESTRADIOL-E.ESTR AD (AMETHIA ORAL) (20 sources) take 1 tablet by mouth once daily L-NORGEST/E.ESTRADIOL-E.ESTRAD (AMETHIA ORAL) Take 1 tablet by mouth once daily. Active take 1 tablet by veronica th once daily L-NORGEST/E.ESTRADIOL-E.ESTRAD (AMETHIA ORAL) Take 1 tablet by mouth once daily. 0 Active Comment on above: Take 1 tablet by veronica th once daily. Lactobacillus acidophilus (20 sources) Lactobacillus acidophilus (PROBIOTIC ORAL) Take by mouth. Active loratadine 10 mg oral tablet (8 sources) End: 3 take 1 tablet by mouth once daily loratadine (CLARITIN) 10 mg tablet Take 10 mg by mouth daily. Active Comment on above: Take 10 mg by mouth once daily. Multiple Vitamin (MULTI VITAMIN PO) (20 sources) Multiple Vitamin (MULTI VITAMIN PO) Take by mouth Active Multiple Vitamin (MULTI VITAMIN PO) Take by mouth 0 Active multivit-min/iron/folic/hrb1 86 (HAIR, SKIN AND NAILS ADVANCED ORAL) (20 sources) multivit-min/iro n/folic/hct090 (HAIR, SKIN AND NAILS ADVANCED ORAL) Take by mouth. Active MULTIVITAMIN ORAL (20 sources) MULTIVITAMIN ORA L Take by mouth. Active nystatin 100 unt/mg topical powder (5 sources) Polyene Antifungal Sta rt: End : nystatin (Mycostatin) 791711 UNIT/GM powder Indications: Antibiotic-induced yeast infection Apply topically Daily 60 g 12/01/2023 12/31/2023 Active Start: 02-03-2023 End: 03-05-2023 nystatin (NYSTOP) powder Yessica ly 1 application to affected area two times a day. 60 g 2 02/03/2023 03/05/2023 Active Comment on above: Apply 1 application to affected area two times a day. omeprazole 20 mg delayed release oral capsule (20 sources) Proton Pump Inhibitor Start: 02-04-20 End: 07-10-19 take 1 capsule by mouth once daily omeprazole (PRILOSEC) 20 mg capsule Take 1 capsule by mouth once daily. 30 capsule 2 04/10/2024 Active Comment on above: Take 1 capsule by mo [facility] once daily. TAKE 1 CAPSULE ONCE DAILY ondansetron 4 mg disintegrating oral tablet (20 sources) Serotonin-3 Receptor Antagonist Start: 10-03-19 End: 12-22-19 take 1 tablet by mouth every eight hours as needed for obesity and obesity ondansetron orally disintegrating (ZOFRAN ODT) 4 mg disintegrating tablet Indications: Class 1 obesity with body mass index (BMI) of 32.0 to 32.9 in adult, unspecified obesity type, unspecified whether serious comorbidity present Take 1 tablet by mouth every 8 hours as needed for nausea/vomiting. 10 tablet 2 12/21/2024 Active Start: 07-06-2023 End: 12-21-2024 take 1 tablet by mouth every six hours as needed for obesity and obesity ondansetron (ZOFRAN) 4 mg tablet Indications: Class 1 obesity with body mass index (BMI) of 32.0 to 32.9 in adult, unspecified obesity type, unspecified whether serious comorbidity present TAKE 1 TABLET BY MOUTH EVERY 6 HOURS NEEDED 18 tablet 1 09/08/2024 12/21/2024 Discontinued Start: 04-07-2023 End: 07-05-2023 take 1 tablet by mouth every six hours as needed ondansetron (ZOFRAN) 4 mg tablet TAKE 1 TABLET EVERY 6 HOURSAS NEEDED 18 tablet 1 04/07/2023 07/05/2023 Discontinued Start: 01-15-2017 End: 10-28-2022 take 1 tablet [...] as needed. 30 tablet 1 02/03/2023 Active take 1 tablet by veronica th every six hours as needed for nausea and vomiting ondansetron ODT (ZOFRAN-ODT) 4 mg disintegrating tablet Dissolve 4 mg on tongue every 6 (six) hours as needed for nausea or vomiting. Active Comment on above: Take 1 tablet by veronica th once daily as needed. Take 1 tablet by veronica th every 6 hours as needed. TAKE 1 TABLET EVERY 6 HOURSAS NEEDED phentermine hydrochloride 37.5 mg oral tablet (20 sources) Sympathomimetic Amine Anorectic Start: 10-29-19 End: 01-01-20 take 1 tablet by mouth in the morning, then take 0.5 tablet by mouth once daily phentermine (Adipex-P) 37.5 MG tablet Take 37.5 mg by mouth in the morning. Half a tablet daily. 10/28/2022 Active Comment on above: Take 1 tablet by veronica th once daily for 90 days. predniSONE 10 mg oral tablet (7 sources) Start: 02-07-20 24 End: 02-15-20 24 take 1 tablet by mouth in the morning predniSONE (Deltasone) 10 MG tablet Indications: Wheezing Take 1 tablet (10 mg) by mouth in the morning and 1 tablet (10 mg) before bedtime. Do all this for 3 days. 6 tablet 02/07/2024 02/15/2024 Discontinued (Therapy completed) Start: 05-19-2023 End: 05-22-2023 take 1 tablet by mouth in the morning predniSONE (Deltasone) 10 MG tablet Indications: Nasal congestion Take 1 tablet (10 mg) by mouth in the morning and 1 tablet (10 mg) before bedtime. Do all this for 3 days. 6 tablet 0 05/19/2023 05/22/2023 Active no115/iron/folic ac id ( 19 ORAL) (1 source) take 1 tablet by mouth once daily no115/iron/folic acid ( 19 ORAL) Take 1 tablet by mouth daily. Active Probiotic Product (PRO-BIOTI C BLEND PO) (20 sources) Probiotic Produc t (PRO-BIOTIC BLEND PO) Take by mouth Active Probiotic Produc t (PRO-BIOTIC BLEND PO) Take by mouth 0 Active promethazine hydrochloride 12.5 mg oral tablet (1 source) Phenothiazine take 1 tablet by mouth every six hours as needed for nausea and vomiting promethazine (PHENERGAN) 12.5 mg tablet Take 12.5 mg by mouth every 6 (six) hours as needed for nausea or vomiting. Active 72 hr scopolamine 0.0139 mg/hr transdermal system (1 source) Anticholinergic Start: 2016 End: 2022 scopolamine (TRANSDERM-SCOP) 1 mg over 3 days Apply 1 Patch as directed every 72 hours. 4 Patch 0 01/15/2017 10/28/2022 Discontinued (Course of therapy completed) Comment on above: Apply 1 Patch as dir ected every 72 hours. semaglutide, weight loss, (WEGOVY) 2.4 mg/0.75 mL pen injector (20 sources) Start: 2024 End: 2024 inject 2.4 mg by subcutaneous injection every week semaglutide, weight loss, (WEGOVY) 2.4 mg/0.75 mL pen injector Indications: History of obesity Inject 2.4 mg subcutaneously one time a week. 3 mL 2 12/08/2024 03/02/2025 Active Start: 09-07-2023 End: 01-26-2024 inject 0.75 mL by subcutaneous injection every week semaglutide, weight loss, (WEGOVY) 2.4 mg/0.75 mL pen injector Inject 0.75 mL subcutaneously one time a week. Patient should start on September 07, 2023. 9 mL 3 09/07/2023 01/26/2024 Discontinued (Changing Therapy/Dosage Form) Start: 09-07-2023 End: 09-06-2024 inject 0.75 mL by subcutaneous injection every week semaglutide, weight loss, (WEGOVY) 2.4 mg/0.75 mL pen injector Inject 0.75 mL subcutaneously one time a week. Patient should start on September 07, 2023. 9 mL 3 09/07/2023 09/06/2024 Active Start: 03-03-2023 inject 0.75 mL by rodriguez bcutaneous injection every week semaglutide, weight loss, (WEGOVY) 2.4 mg/0.75 mL pen injector Inject 0.75 mL subcutaneously one time a week. 9 mL 0 03/03/2023 Active Start: 03-03-2023 End: 05-26-2023 inject 0.75 mL by subcutaneous injection every [...] mL subcu taneously one time a week. tirzepatide, weight loss (ZEPBOUND) 7.5 mg/0.5 mL pen injector (20 sources) Start: 12-03-2023 End: 05-31-2024 tirzepatide, weight loss (ZEPBOUND) 7.5 mg/0.5 mL pen injector Indications: Class 1 obesity with body mass index (BMI) of 32.0 to 32.9 in adult, unspecified obesity type, unspecified whether serious comorbidity present Inject 7.5 mg subcutaneously one time a week. 2 mL 5 12/03/2023 05/31/2024 Active Start: 10-06-2023 End: 12-03-2023 tirzepatide, weight loss (ZE PBOUND) 7.5 mg/0.5 mL pen injector Indications: Class 1 obesity with body mass index (BMI) of 32.0 to 32.9 in adult, unspecified obesity type, unspecified whether serious comorbidity present Inject 7.5 mg subcutaneously one time a week. 2 mL 5 10/06/2023 12/03/2023 Discontinued Start: 10-06-2023 End: 04-03-2024 tirzepatide, weight loss (ZE PBOUND) 7.5 mg/0.5 mL pen injector Indications: Class 1 obesity with body mass index (BMI) of 32.0 to 32.9 in adult, unspecified obesity type, unspecified whether serious comorbidity present Inject 7.5 mg subcutaneously one time a week. 2 mL 5 10/06/2023 04/03/2024 Active Tirzepatide-Weight Management (Zepbound) 7.5 MG/0.5ML solution auto-injector (14 sources) Start: 10-06-2023 End: 04-03-2024 inject 7.5 mg by subcutaneous injection every week Tirzepatide-Weight Management (Zepbound) 7.5 MG/0.5ML solution auto-injector Inject 7.5 mg under the skin once a week 10/06/2023 04/03/2024 Active Tirzepatide-Weight Management 12.5 MG/0.5ML solution auto-injector (20 sources) Start: 03-31-2024 Tirzepatide-Weight Management 12.5 MG/0.5ML solution auto-injector 03/31/2024 Active Wegovy 1.7 MG/0.75ML solution auto-injector (15 sources) Start: 02-03-2023 End: 02-15-2024 Wegovy 1.7 MG/0.75ML solution auto-injector 02/03/2023 02/15/2024 Discontinued (Therapy completed) Start: 02-03-2023 Wegovy 1.7 MG/ 0.75ML solution auto-injector 02/03/2023 Active Start: 02-03-2023 Wegovy 1.7 MG/ 0.75ML solution auto-injector Zepbound 10 MG/0.5ML solution auto-injector (3 sources) Start: 03-31-2024 inject 10 mg by subcutaneous injection every week Zepbound 10 MG/0.5ML solution auto-injector INJECT 10 MG SUBCUTANEOUSLY ONE TIME PER WEEK 03/31/2024 Active Completed/Discontinued Medications Medication Drug Class(es) Dates Sig (Normalized) Sig (Original) acetaminophen 500 mg oral tablet (7 sources) End: 02-03-2023 take 1 tablet by mouth every eight hours as needed acetaminophen (TYLENOL) 500 mg tablet Take 500 mg by mouth every 8 hours as needed. 0 02/03/2023 Discontinued (Discontinued by Patient) Comment on above: Take 500 mg by mouth every 8 hours as needed. albuterol 0.83 mg/ml inhalation solution (18 sources) beta2-Adrenergic Agonist Start: 02-15-2024 End: 05-10-2024 albuterol (2.5 MG/3ML) 0.083% nebulizer solution Indications: Pneumonia of right lower lobe due to infectious organism Take 3 mL (2.5 mg) by nebulization every 6 (six) hours if needed for wheezing 75 mL 1 02/15/2024 05/10/2024 Discontinued Start: 02-07-2024 End: 02-06-2025 take 2 puff(s) by inhalation every four hours for wheezing albuterol HFA 90 mcg/act inhaler Indications: Wheezing Inhale 2 puffs every 4 (four) hours if needed for wheezing 18 g 02/07/2024 05/10/2024 Discontinued levoFLOXacin 750 mg oral tablet (8 sources) Quinolone Antimicrobial End: 05-10-2024 levoFLOXacin (Levaquin) 750 MG tablet Take by mouth 05/10/2024 Discontinued metFORMIN hydrochloride 500 mg oral tablet (7 sources) Biguanide Start: 10-28-2022 End: 02-03-2023 take 1 tablet by mouth once daily at dinner metFORMIN (GLUCOPHAGE) 500 mg tablet Take 1 tablet by mouth daily with dinner. 180 tablet 1 10/28/2022 02/03/2023 Discontinued (Discontinued by Patient) Comment on above: Take 1 tablet by veronica th daily with dinner. oxyCODONE hydrochloride 1 mg/ml oral solution (7 sources) Opioid Agonist Start: 12-18-2016 End: 02-03-2023 take 5-10 mg by mouth every four hours as needed oxyCODONE (ROXICODONE) 5 mg/5 mL oral solution Take 5-10 mL by mouth every 4 hours as needed. 210 mL 0 12/18/2016 02/03/2023 Discontinued (Course of therapy completed) Comment on above: Take 5-10 mL by mout h every 4 hours as needed. semaglutide, weight loss, (WEGOVY) 0.5 mg/0.5 mL pen injector (6 sources) Start: 12-29-2022 End: 02-03-2023 inject 0.5 mL by subcutaneous injection every [...] loss, (WEGOVY) 1.7 mg/0.75 mL pen injector (20 sources) Start: 025 End: 025 inject 1.7 mg by subcutaneous injection every week semaglutide, weight loss, (WEGOVY) 1.7 mg/0.75 mL pen injector Indications: History of obesity , S/P laparoscopic sleeve gastrectomy , PCOS (polycystic ovarian syndrome) , Mild obstructive sleep apnea Inject 1.7 mg subcutaneously one time a week. 3 mL 2 10/02/2024 12/08/2024 Discontinued (Changing Therapy/Dosage Form) Start: 10-02-2024 End: 12-25-2024 inject 1.7 mg by subcutaneous injection every week semaglutide, weight loss, (WEGOVY) 1.7 mg/0.75 mL pen injector Indications: History of obesity , S/P laparoscopic sleeve gastrectomy , PCOS (polycystic ovarian syndrome) , Mild obstructive sleep apnea Inject 1.7 mg subcutaneously one time a week. 3 mL 2 10/02/2024 12/25/2024 Active Start: 08-17-2023 End: 01-26-2024 semaglutide, weight loss, (W EGOVY) 1.7 mg/0.75 mL pen injector Indications: Class 1 obesity with body mass index (BMI) of 32.0 to 32.9 in adult, unspecified obesity type, unspecified whether serious comorbidity present Inject 0.75 mL subcutaneously one time a week. 3 mL 08/17/2023 01/26/2024 Discontinued (Changing Therapy/Dosage Form) Start: 08-17-2023 semaglutide, w eight loss, (WEGOVY) 1.7 mg/0.75 mL pen injector Indications: Class 1 obesity with body mass index (BMI) of 32.0 to 32.9 in adult, unspecified obesity type, unspecified whether serious comorbidity present Inject 0.75 mL subcutaneously one time a week. 3 mL 08/17/2023 Active Start: 08-17-2023 End: 11-15-2023 semaglutide, weight loss, (W EGOVY) 1.7 mg/0.75 mL pen injector Indications: Class 1 obesity with body mass index (BMI) of 32.0 to 32.9 in adult, unspecified obesity type, unspecified whether serious comorbidity present Inject 0.75 mL subcutaneously one time a week. 3 mL 0 08/17/2023 11/15/2023 Active Start: 08-10-2023 End: 11-08-2023 semaglutide, weight loss, (W EGOVY) 1.7 mg/0.75 mL pen injector Indications: Class 1 obesity with body mass index (BMI) of 32.0 to 32.9 in adult, unspecified obesity type, unspecified whether serious comorbidity present Inject 0.75 mL subcutaneously one time a week. 3 mL 2 08/10/2023 11/08/2023 Active Start: 07-06-2023 End: 08-09-2023 semaglutide, weight loss, (W EGOVY) 1.7 mg/0.75 mL pen injector Indications: Class 1 obesity with body mass index (BMI) of 32.0 to 32.9 in adult, unspecified obesity type, unspecified whether serious comorbidity present Inject 0.75 mL subcutaneously one time a week. 3 mL 2 07/06/2023 08/09/2023 Discontinued Start: 07-06-2023 End: 10-04-2023 semaglutide, weight loss, (W EGOVY) 1.7 mg/0.75 mL pen injector Indications: Class 1 obesity with body mass index (BMI) of 32.0 to 32.9 in adult, unspecified obesity type, unspecified whether serious comorbidity present Inject 0.75 mL subcutaneously one time a week. 3 mL 2 07/06/2023 10/04/2023 Active Start: 02-03-2023 inject 0.75 mL by rodriguez bcutaneous injection every week semaglutide, weight loss, (WEGOVY) [...] Discontinued Comment on above: Inject 0.75 mL subcutaneously one time a week for 28 days. Inject 0.75 mL subcu taneously one time a week. tirzepatide, weight loss (ZEPBOUND) 10 mg/0.5 mL pen injector (7 sources) Start: End: inject 10 mg by subcutaneous injection every week tirzepatide, weight loss (ZEPBOUND) 10 mg/0.5 mL pen injector Indications: Overweight Inject 10 mg subcutaneously one time a week. 6 mL 1 03/06/2024 04/27/2024 Discontinued Start: 03-06-2024 End: 04-27-2024 inject 10 mg by subcutaneous injection every week tirzepatide, weight loss (ZEPBOUND) 10 mg/0.5 mL pen injector Inject 10 mg subcutaneously one time a week. 2 mL 2 03/06/2024 04/27/2024 Discontinued Start: 03-06-2024 End: 09-02-2024 inject 10 mg by subcutaneous injection every week tirzepatide, weight loss (ZEPBOUND) 10 mg/0.5 mL pen injector Indications: Overweight Inject 10 mg subcutaneously one time a week. 6 mL 1 03/06/2024 09/02/2024 Active Start: 03-06-2024 End: 06-04-2024 inject 10 mg by subcutaneous injection every week tirzepatide, weight loss (ZEPBOUND) 10 mg/0.5 mL pen injector Inject 10 mg subcutaneously one time a week. 2 mL 2 03/06/2024 06/04/2024 Active Start: 03-03-2024 End: 06-01-2024 inject 10 mg by subcutaneous injection every week tirzepatide, weight loss (ZEPBOUND) 10 mg/0.5 mL pen injector Indications: Overweight Inject 10 mg subcutaneously one time a week. 2 mL 2 03/03/2024 06/01/2024 Active tirzepatide, weight loss (ZEPBOUND) 12.5 mg/0.5 mL pen injector (10 sources) Start: 10-25-2024 End: 12-08-2024 inject 12.5 mg by subcutaneous injection every week tirzepatide, weight loss (ZEPBOUND) 12.5 mg/0.5 mL pen injector Indications: History of obesity , S/P laparoscopic sleeve gastrectomy , Overweight Inject 12.5 mg subcutaneously one time a week. 2 mL 5 10/25/2024 12/08/2024 Discontinued (Changing Therapy/Dosage Form) Start: 10-25-2024 End: 04-23-2025 inject 12.5 mg by subcutaneous injection every week tirzepatide, weight loss (ZEPBOUND) 12.5 mg/0.5 mL pen injector Indications: History of obesity , S/P laparoscopic sleeve gastrectomy , Overweight Inject 12.5 mg subcutaneously one time a week. 2 mL 5 10/25/2024 04/23/2025 Active Start: 07-16-2024 End: 10-25-2024 inject 12.5 mg by subcutaneous injection every week tirzepatide, weight loss (ZEPBOUND) 12.5 mg/0.5 mL pen injector Indications: Overweight Inject 12.5 mg subcutaneously one time a week. 2 mL 5 07/16/2024 10/25/2024 Discontinued Start: 07-16-2024 End: 01-12-2025 inject 12.5 mg by subcutaneous injection every week tirzepatide, weight loss (ZEPBOUND) 12.5 mg/0.5 mL pen injector Indications: Overweight Inject 12.5 mg subcutaneously one time a week. 2 mL 5 07/16/2024 01/12/2025 Active Start: 04-27-2024 End: 07-05-2024 inject 12.5 mg by subcutaneous injection every week tirzepatide, weight loss (ZEPBOUND) 12.5 mg/0.5 mL pen injector Indications: Overweight Inject 12.5 mg subcutaneously one time a week. 2 mL 5 04/27/2024 07/05/2024 Discontinued Start: 04-27-2024 End: 10-24-2024 inject 12.5 mg by subcutaneous injection every week tirzepatide, weight loss (ZEPBOUND) 12.5 mg/0.5 mL pen injector Indications: Overweight Inject 12.5 mg subcutaneously one time a week. 2 mL 5 04/27/2024 10/24/2024 Active Problems Active Problems Problem Classification Problem Date Documented Da te Episodic/Chronic Adjustment disorders (20 sources) Adjustment disorder with mixed anxiety and depressed mood; Translations: [Adjustment disorder with mixed anxiety and depressed mood] Onset: 07-12-2024 07-12-2024 Chronic Administrative/social admission (20 sources) Patient encounter status; Translations: [Dietary counseling and surveillance] Onset: 07-12-2024 02-02-2024 Episodic Chronic obstructive pulmonary disease and bronchiectasis (3 sources) Bronchitis; Translations: [Bronchitis, not specified as acute or chronic] 02-07-2024 Episodic Fever of unknown origin (2 sources) Fever; Translations: [Fever, unspecified] 02-07-2024 Episodic Fluid and electrolyte disorders (2 sources) Hypokalemia; Translations: [Hypokalemia] 02-15-2024 Episodic Headache; including migraine (20 sources) Chronic intractable migraine without aura; Translations: [Chronic migraine without aura, intractable, without status migrainosus] Onset: 11-11-2022 02-02-2023 Chronic Immunizations and screening for infectious disease (5 sources) Encounter for screening for human papillomavirus (HPV); Translations: [Contact with and (suspected) exposure to other viral communicable diseases] Onset: 06-03-2021 06-08-2024 Episodic Malaise and fatigue (20 sources) Fatigue; Translations: [Chronic fatigue, unspecified] Onset: 01-12-2022 02-02-2023 Chronic Mycoses (5 sources) Candidiasis; Translations: [Candidiasis, unspecified] 12-24-2023 Episodic Other aftercare (1 source) Surgical follow-up; Translations: [Encounter for surgical aftercare following surgery on the digestive system] 04-27-2024 Episodic Other aftercare (1 source) Encounter for surgical aftercare following surgery on the digestive system; Translations: [Encounter for surgical aftercare following surgery of digestive system] Onset: 12-28-2024 Episodic Other circulatory disease (2 sources) Pulmonary congestion ; Translations: [Other specified symptoms and signs involving the circulatory and respiratory systems] 06-08-2024 Episodic Other endocrine disorders (20 sources) Polycystic ovary syndrome; Translations: [Polycystic ovarian syndrome] Onset: 08-07-2016 10-28-2022 Chronic Other endocrine disorders (2 sources) Polycystic ovarian syndrome; Translations: [PCOS (polycystic ovarian syndrome)] Onset: 08-07-2016 Chronic Other female genital disorders (1 source) Abnormal uterine and vaginal bleeding, unspecified; Translations: [ABNORMAL UTERINE VAGINAL BLEED UNS] Onset: 10-07-2020 Chronic Other female genital disorders (1 source) Other specified noninflammatory disorders of vagina; Translations: [OTH SPEC NONINFLAMMATORY D/O VAGINA] Onset: 06-03-2021 Episodic Other gastrointestinal disorders (2 sources) Diarrhea; Translations: [Diarrhea, unspecified] 06-15-2024 Episodic Other lower respiratory disease (2 sources) Wheezing; Translations: [Wheezing] 02-07-2024 Episodic Other nutritional; endocrine; and metabolic disorders (12 sources) Obesity; Translations: [Obesity, unspecified] 10-28-2022 Chronic Other nutritional; endocrine; and metabolic disorders (20 sources) Metabolic syndrome X; Translations: [Insulin resistance syndrome] Onset: 01-13-2022 02-02-2023 Chronic Other nutritional; endocrine; and metabolic disorders (20 sources) Insulin resistance; Translations: [Insulin resistance] Onset: 01-13-2022 11-11-2022 Chronic Other nutritional; endocrine; and metabolic disorders (20 sources) Morbid obesity; Translations: [Morbid (severe) obesity due to excess calories] Onset: 01-12-2022 11-11-2022 Chronic Other nutritional; endocrine; and metabolic disorders (20 sources) Hereditary hemochromatosis; Translations: [Hereditary hemochromatosis] Onset: 01-06-2024 01-06-2024 Chronic Other nutritional; endocrine; and metabolic disorders (1 source) Hereditary hemochromatosis; Translations: [Hereditary hemochromatosis (HCC)] Onset: 01-06-2024 Chronic Other nutritional; endocrine; and metabolic disorders (1 source) H/O: hypothyroidism; Translations: [Personal history of other endocrine, nutritional and metabolic disease] 10-06-2023 Episodic Other nutritional; endocrine; and metabolic disorders (8 sources) Overweight; Translations: [Overweight] 10-20-2023 Episodic Other nutritional; endocrine; and metabolic disorders (1 source) Body mass index 25-29 - overweight; Translations: [Overweight] 02-02-2024 Episodic Other nutritional; endocrine; and metabolic disorders (7 sources) H/O: obesity; Translations: [Personal history of other endocrine, nutritional and metabolic disease] 04-27-2024 Episodic Other nutritional; endocrine; and metabolic disorders (2 sources) Personal history of other endocrine, nutritional and metabolic disease; Translations: [History of obesity] Onset: 10-02-2024 Episodic Other nutritional; endocrine; and metabolic disorders (1 source) Overweight; Translations: [Overweight] Onset: 12-28-2024 Episodic Other screening for suspected conditions (not mental disorders or infectious disease) (11 sources) Encounter for screening for malignant neoplasm of cervix; Translations: [Encounter for screening for Streptococcus B] Onset: 10-01-2020 Episodic Other upper respiratory disease (4 sources) Nasal congestion; Translations: [Nasal congestion] 05-19-2023 Episodic Other upper respiratory infections (6 sources) Acute pansinusitis; Translations: [Acute pansinusitis, unspecified] 05-10-2024 Episodic Otitis media and related conditions (2 sources) Acute left otitis media; Translations: [Otitis media, unspecified, left ear] 02-07-2024 Episodic Pneumonia (except that caused by tuberculosis or sexually transmitted disease) (2 sources) Right lower zone pneumonia; Translations: [Pneumonia, unspecified organism] 02-15-2024 Episodic Residual codes; unclassified (2 sources) Obstructive sleep apnea (adult) (pediatric); Translations: [Mild obstructive sleep apnea] Onset: 02-02-2023 Chronic Residual codes; unclassified (1 source) Acquired absence of stomach [part of]; Translations: [History of sleeve gastrectomy] Onset: 12-28-2024 Episodic Thyroid disorders (20 sources) Acquired hypothyroidism; Translations: [Hypothyroidism, unspecified] Onset: 11-11-2022 02-02-2023 Chronic Unclassified (1 source) CONTACT W/AND (SUSP) EXPOS COVID-19; Translations: [CONTACT W/AND (SUSP) EXPOS COVID-19] Onset: 10-22-2020 Past or Other Problems Problem Classification Problem Date Documented Da te Episodic/Chronic Abdominal pain (1 source) Unspecified abdominal pain; Translations: [UNSPECIFIED ABDOMINAL PAIN] Onset: 10-09-2020 Episodic Anxiety disorders (20 sources) Anxiety; Translations: [Anxiety disorder, unspecified] Onset: 01-13-2022 Resolved: 05-19-2023 02-02-2023 Chronic Calculus of urinary tract (20 sources) Personal history of urinary calculi; Translations: [Calculus of kidney] Onset: 06-27-2020 Resolved: 02-02-2023 Episodic Diabetes or abnormal glucose tolerance complicating ; childbirth; or the puerperium (20 sources) Gestational diabetes mellitus in childbirth, unspecified [...] of ; puerperium affecting management of mother (15 sources) Disorder of ; Translations: [Streptococcus B carrier state complicating childbirth] Onset: 10-22-2020 02-02-2023 Episodic Other complications of ; puerperium affecting management of mother (20 sources) Group B streptococcus infection in mother complicating childbirth; Translations: [Streptococcus B carrier state complicating childbirth] [...] TRI] Onset: 07-04-2020 Episodic Other gastrointestinal disorders (20 sources) History of sleeve gastrectomy; Translations: [Bariatric surgery status] Onset: 12-17-2016 10-28-2022 Episodic Other gastrointestinal disorders (2 sources) Bariatric surgery status; Translations: [S/P laparoscopic sleeve gastrectomy] Onset: 12-17-2016 Episodic Other non-traumatic joint disorders (20 sources) Joint pain; Translations: [Pain in unspecified joint] Onset: 01-12-2022 02-02-2023 Episodic Other and delivery including normal (1 source) Single live ; Translations: [SINGLE LIVE ] Onset: 10-22-2020 Episodic Polyhydramnios and other problems of amniotic cavity (4 sources) Oligohydramnios, third trimester, not applicable or unspecified; Translations: [OLIGOHYDRAMNIOS THIRD TRI NA/UNS] Onset: 10-01-2020 Episodic Residual codes; unclassified (20 sources) Obstructive sleep apnea syndrome; Translations: [Obstructive sleep apnea (adult) (pediatric)] Onset: 01-13-2022 Resolved: 08-20-2023 02-02-2023 Chronic Residual codes; unclassified (1 source) 37 weeks [...] ] Onset: 07-04-2020 Episodic Residual codes; unclassified (20 sources) H/O: Disorder; Translations: [Personal history of other complications of , childbirth and the puerperium] Onset: 10-01-2020 02-02-2023 Episodic Screening and history of mental health and substance abuse codes (20 sources) Personal history of nicotine dependence; Translations: [Personal history of tobacco use] Onset: 10-22-2020 02-02-2023 Episodic Spondylosis; intervertebral disc disorders; other back problems (20 sources) Dorsalgia, unspecified; Translations: [Chronic back pain ] Onset: 07-01-2020 Resolved: 05-19-2023 Episodic Unclassified (2 sources) History of sleeve gastrectomy 10-25-2024 Results Test Name Value Interpretation Reference Range Facility VITAMIN B1 (THIAMINE), WHOLE BLOODOrdered By: Ursula Moses on 10-04-2024 Interpretation and review of laboratory results Abnormal [facility] Thiamine (Bld) [Moles/Vol] 244.2 nmol/L High 84.3 - 213.3 nmol/L [facility] Comment on above: This assay measures the concentration of thiamine diphosphate (TDP), the primary active form of vitamin B1. Approximately 90 percent of vitamin B1 present in whole blood is TDP. Thiamine and thiamine monophosphate, which comprise the remaining 10 percent, are not measured. This test was developed, and its performance characteristics determined by the [facility] Department of Pathology and Laboratory Medicine. It has not been cleared or approved by the FDA. The [facility] Department of Pathology and Laboratory Medicine is regulated under CLIA as qualified to perform high-complexity testing. This test is used for clinical purposes. It should not be regarded as investigational or for research. [facility] 25(OH)D3 [facility] 25-hydroxyvitamin D3 [Mass/Vol] 68.4 ng/mL Normal 31.0-80.0 [facility] Comment on above: Order Comment: Speci men Type: BLOOD SPECIMEN Ordering Facility: [facility] Address: [address] [place] [address] Result Comment: Clas sification of 25 [place] Vitamin D status: Deficiency/Insufficiency: < or = 30 ng/ml. Sufficiency/Optimal Levels: 31-80 ng/mL Toxicity: > 100 ng/mL. Test performed by chemiluminescent immunoassay. Performed By: #### 2 284-8, 2132-9 #### [facility] CLIA [id number] [facility] [place] [address] [place] 25-hydroxyvitamin D3 [Mass/V ol]on 10-02-2024 Interpretation and review of laboratory results Normal [facility] The reference range interval was based on an analysis of samples from healthy adults and may not pertain to children from 0-18 years old. [facility] CBC W Auto Differential pane l (Bld)on 10-02-2024 Basophils (Bld) [#/Vol] 0.06 10*3/uL [facility] Differential cell count method Nom (Bld) Auto [facility] Eosinophils (Bld) [#/Vol] 0.2 10*3/uL [facility] Immature granulocytes (Bld) [#/Vol] [facility] Immature granulocytes/100 WBC (Bld) 0.1 % [facility] Lymphocytes (Bld) [#/Vol] 2.86 10*3/uL [facility] Monocytes (Bld) [#/Vol] 0.37 10*3/uL [facility] Neutrophils (Bld) [#/Vol] 4.17 10*3/uL [facility] Nucleated RBC (Bld) [#/Vol] [facility] Nucleated RBC/100 WBC (Bld) [Ratio] 0 % /100 WBC [facility] Platelet mean volume (Bld) [Entitic vol] 9.3 fL 9.0 - 12.7 fL [facility] Platelets (Bld) [#/Vol] 284 10*3/uL [facility] WBC (Bld) [#/Vol] 7.67 10*3/uL [facility] Basophils (Bld) [#/Vol] 0.06 10*3/uL Normal <0.11 [facility] Comment on above: Order Comment: Speci men Type: BLOOD SPECIMEN Ordering Facility: [facility] Address: [address] [place] [address] Performed By: #### 5 7021-8 #### [facility] IA [id number] [address] [place] [address] [place] Basophils/100 WBC (Bld) 0.8 % Normal [facility] Comment on above: Order Comment: Speci men Type: BLOOD SPECIMEN Ordering Facility: [facility] Address: [address] [place] [address] Performed By: #### 5 7021-8 #### [facility] CLIA [id number] [place] [address] [place] Differential cell count method Nom (Bld) Auto Normal [facility] Comment on above: Order Comment: Speci men Type: BLOOD SPECIMEN Ordering Facility: [facility] Address: [address] [place] [address] Performed By: #### 5 7021-8 #### [facility] CLIA [id number] [place] [address] [place] Eosinophils (Bld) [#/Vol] 0.20 10*3/uL Normal <0.46 [facility] Comment on above: Order Comment: Speci men Type: BLOOD SPECIMEN Ordering Facility: [facility] Address: [address] [place] [address] Performed By: #### 5 7021-8 #### [facility] CLIA [id number] [place] [address] [place] Eosinophils/100 WBC (Bld) 2.6 % Normal [facility] Comment on above: Order Comment: Speci men Type: BLOOD SPECIMEN Ordering Facility: [facility] Address: [address] [place] [address] Performed By: #### 5 7021-8 #### [facility] IA [id number] [place] [address] [place] Erythrocyte distribution width (RBC) [Ratio] 11.8 % Normal 11.5-15.0 [facility] Comment on above: Order Comment: Speci men Type: BLOOD SPECIMEN Ordering Facility: [facility] Address: [address] [place] [address] Performed By: #### 5 7021-8 #### [facility] IA [id number] [place] [address] [place] Hematocrit (Bld) [Volume fraction] 43.0 % Normal 36.0-46.0 [facility] Comment on above: Order Comment: Speci men Type: BLOOD SPECIMEN Ordering Facility: [facility] Address: [address] [place] [address] Performed By: #### 5 7021-8 #### [facility] CLIA [id number] [address] [place] [address] [place] Hemoglobin (Bld) [Mass/Vol] 14.6 g/dL Normal 11.5-15.5 [facility] Comment on above: Order Comment: Speci men Type: BLOOD SPECIMEN Ordering Facility: [facility] Address: [address] [place] [address] Performed By: #### 5 7021-8 #### [facility] CLIA [id number] [place] [address] [place] Immature granulocytes (Bld) [#/Vol] 10*3/uL Normal <0.10 [facility] Comment on above: Order Comment: Speci men Type: BLOOD SPECIMEN Ordering Facility: [facility] Address: [address] [place] [address] Performed By: #### 5 7021-8 #### [facility] CLIA [id number] [address] [place] [address] [place] Immature granulocytes/100 WBC (Bld) 0.1 % Normal [facility] Comment on above: Order Comment: Speci men Type: BLOOD SPECIMEN Ordering Facility: [facility] Address: [address] [place] [address] Performed By: #### 5 7021-8 #### [facility] IA [id number] [address] [place] [address] [place] Lymphocytes (Bld) [#/Vol] 2.86 10*3/uL Normal 1.00-4.00 [facility] Comment on above: Order Comment: Speci men Type: BLOOD SPECIMEN Ordering Facility: [facility] Address: [address] [place] [address] Performed By: #### 5 7021-8 #### [facility] IA [id number] [place] [address] [place] Lymphocytes/100 WBC (Bld) 37.3 % Normal [facility] Comment on above: Order Comment: Speci men Type: BLOOD SPECIMEN Ordering Facility: [facility] Address: [address] [place] [address] Performed By: #### 5 7021-8 #### [facility] IA [id number] [place] [address] [place] MCH (RBC) [Entitic mass] 30.5 pg Normal 26.0-34.0 [facility] Comment on above: Order Comment: Speci men Type: BLOOD SPECIMEN Ordering Facility: [facility] Address: [address] [place] [address] Performed By: #### 5 7021-8 #### [facility] IA [id number] [address] [place] [address] [place] MCHC (RBC) [Mass/Vol] 34.0 g/dL Normal 30.5-36.0 [facility] Comment on above: Order Comment: Speci men Type: BLOOD SPECIMEN Ordering Facility: [facility] Address: [address] [place] [address] Performed By: #### 5 7021-8 #### [facility] IA [id number] [place] [address] [place] MCV (RBC) [Entitic vol] 90.0 fL Normal 80.0-100.0 [facility] Comment on above: Order Comment: Speci men Type: BLOOD SPECIMEN Ordering Facility: [facility] Address: [address] [place] [address] Performed By: #### 5 7021-8 #### [facility] IA [id number] [address] [place] [address] [place] Monocytes (Bld) [#/Vol] 0.37 10*3/uL Normal <0.87 [facility] Comment on above: Order Comment: Speci men Type: BLOOD SPECIMEN Ordering Facility: [facility] Address: [address] [place] [address] Performed By: #### 5 7021-8 #### [facility] IA [id number] [address] [place] [address] [place] Monocytes/100 WBC (Bld) 4.8 % Normal [facility] Comment on above: Order Comment: Speci men Type: BLOOD SPECIMEN Ordering Facility: [facility] Address: [address] [place] [address] Performed By: #### 5 7021-8 #### [facility] IA [id number] [place] [address] [place] Neutrophils (Bld) [#/Vol] 4.17 10*3/uL Normal 1.45-7.50 [facility] Comment on above: Order Comment: Speci men Type: BLOOD SPECIMEN Ordering Facility: [facility] Address: [address] [place] [address] Performed By: #### 5 7021-8 #### [facility] IA [id number] [place] [address] [place] Neutrophils/100 WBC (Bld) 54.4 % Normal [facility] Comment on above: Order Comment: Speci men Type: BLOOD SPECIMEN Ordering Facility: [facility] Address: [address] [place] [address] Performed By: #### 5 7021-8 #### [facility] IA [id number] [address] [place] [address] [place] Nucleated RBC (Bld) [#/Vol] 10*3/uL Normal <0.01 [facility] Comment on above: Order Comment: Speci men Type: BLOOD SPECIMEN Ordering Facility: [facility] Address: [address] [place] [address] Performed By: #### 5 7021-8 #### [facility] IA [id number] [place] [address] [place] Nucleated RBC/100 WBC (Bld) [Ratio] 0.0 /100 WBC Normal [facility] Comment on above: Order Comment: Speci men Type: BLOOD SPECIMEN Ordering Facility: [facility] Address: [address] [place] [address] Performed By: #### 5 7021-8 #### [facility] IA [id number] [place] [address] [place] Platelet mean volume (Bld) [Entitic vol] 9.3 fL Normal 9.0-12.7 [facility] Comment on above: Order Comment: Speci men Type: BLOOD SPECIMEN Ordering Facility: [facility] Address: [address] [place] [address] Performed By: #### 5 7021-8 #### [facility] IA [id number] [address] [place] [address] [place] Platelets (Bld) [#/Vol] 284 10*3/uL Normal 150-400 [facility] Comment on above: Order Comment: Speci men Type: BLOOD SPECIMEN Ordering Facility: [facility] Address: [address] [place], [place] [address] Performed By: #### 5 7021-8 #### [facility] CLIA [id number] [place] [address] [place] RBC (Bld) [#/Vol] 4.78 10*6/uL Normal 3.90-5.20 [facility] Comment on above: Order Comment: Speci men Type: BLOOD SPECIMEN Ordering Facility: [facility] Address: [address] [place] [address] Performed By: #### 5 7021-8 #### [facility] CLIA [id number] [place], [place] [id number] [place] [address] [facility] WBC (Bld) [#/Vol] 7.67 10*3/uL Normal 3.70-11.00 [facility] Comment on above: Order Comment: Speci men Type: BLOOD SPECIMEN Ordering Facility: [facility] Address: [address] [place], [place] [address] Performed By: #### 5 7021-8 #### [facility] CLIA [id number] [address] [place] [address] [facility] CBC W AUTO DIFF BLDon [facility] BASOPHILS # BLD AUTO 0.06 [facility] DIFFERENTIAL METHOD BLD Auto [facility] EOSINOPHIL # BLD AUTO 0.2 [facility] LYMPHOCYTES # BLD AUTO 2.86 [facility] MONOCYTES # BLD AUTO 0.37 [facility] NEUTROPHILS # BLD AUTO 4.17 [facility] NRBC # BLD AUTO <0.01 [facility] NRBC/100 WBC BLD-RTO 0 /100 WBC [facility] PLATELET # BLD AUTO [address] [facility] PMV BLD AUTO 9.3 fL 9.0 - 12.7 fL [facility] WBC # BLD AUTO 7.67 [facility] IMM GRANULOCYTES # BLD AUTO <0.03 NINF [facility] IMM GRANULOCYTES/LEUK NFR BLD AUTO 0.1 % [facility] Specimen Type: BLOOD SPECIMEN Ordering Facility: [facility] Address: [address] [id number] Original Ordering Provider: NICOLE GUZMANOVon 10-02-2024 CNOV Office Visit (BMIREJ ) VIOLETTEALLAN EDUIN ([id number]) 1985 F Date Time Provider Department 10/02/24 11:30 AM NICOLE MARQUIS BMIREJ During your visit today, we recorded the following information about you: Pulse Blood pressure Weight Height 88/minute 127/86 73.5 kg 1.705 m Last Period 07/11/24 Nicole Marquis APRN.DESIGN TRANSFERRER 10/25/2024 4:25 PM Addendum BMI Obesity Medicine PostOp Follow Up Visit [facility] Visit October 25, 2024 Recording using [employer] software for draft documentation of the visit was discussed with the patient/authorized account executive sales representative; all questions welcomed and answered. Patient/authorized account executive sales representative agreed to proceed I have communicated my name and active licensure. The patient's identity and physical location were verified at the time of this visit. Either the patient or their legal account executive sales representative has been informed of the risks [...] PROCEDURE Visit: 5 years Today's Visit: BMI 25.28 kg/(m2) COMPLICATIONS SINCE LAST VISIT?: NONE Found to have hemochromatosis BEKA: Allan Burr is a 39 year old female s/p Sleeve gastrectomy on12/17/2016 who responded well to surgery, losing approximately 25% of her total body weight. Post-OP course complicated by weight recurrence after 2 pregnancies.. Nearly all of her weight-related medical comorbidities have resolved or improved after surgery. Body mass index is 25.28 kg/m?.) She has been complaint with her vitamin and mineral supplementation. Diet and exercise habits as above. Asymptomatic, taking required supplements as recommended, no signs or symptoms of vitamin deficiency. She continues to be motivated to lose weight. Agreeable to increase Zepbound and continue phentermine 1/2 tablet in the morning as needed. F/b hepatology for hemochromatosis. Plan: EDUCATION: Encouraged to continue with healthy lifestyle changes and incorporate cardiovascular and resistance training, Discussed weight loss expectations after bariatric and metabolic surgery, Advised PT to avoid NSAIDs, smoking tobacco given increased risk of marginal ulcers, Compliant w/ bariatric vitamins. 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 Obesity: - Currently taking Zepbound 12.5 mg and phentermine 15 mg BID. - Insurance will no longer cover Zepbound as of October 10; previously had a pre-approval. - Allan has one Zepbound injection left; took the most recent dose this morning. - Previously used Wegovy; experienced nausea at higher doses. - Current weight is 159-160 lbs; goal weight is 150 lbs. - Insurance does not cover phentermine, but it is affordable [id number]. - Allan has a box of Wegovy in the refrigerator; unsure of the dose. - History of mild sleep apnea; last sleep study was in 2017 before sleeve surgery. Iron Levels: - Iron levels have been high; last check was normal. - Taking iron-free vitamins. 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 Doing well. Less side effects with Zepbound. Weight is decreased since last visit. AOM Hx: Was going to a med spa and getting semaglutide injections, but it is costly. Metformin - GI upset Contrave SE- bad dreams, felt like she was in a haze Topiramate took when she was younger for migraines Had kidney stone while . Wegovy Side effects: nausea, fatigue Benefit: Reduction of appetite and Increased satiety Started: 2022 Starting weight: 208 lbs Tirzepatide (Zepbound) 12.5 mg Side effects: denies Benefit: Reduction of cravings, Increased satiety Started: 2023 Starting weight: 181 lbs Diet: Increasing water intake [place], RD Exercise: increased Sleep: mild PILAR, not on CPAP Taking required vitamins and minerals: Yes One-a-day iron free Calcium: No Multivitamin AN (more content not included)... Normal [facility] Comprehensive metabolic 2000 panelon 10-02-2024 Albumin [Mass/Vol] 4.1 g/dL 3.9 - 4.9 g/dL [facility] ALP [Catalytic activity/Vol] 75 U/L 34 - 123 U/L [facility] ALT [Catalytic activity/Vol] 12 U/L 7 - 38 U/L [facility] Anion gap [Moles/Vol] 11 mmol/L 8 - 15 mmol/L [facility] AST [Catalytic activity/Vol] 19 U/L 13 - 35 U/L [facility] Bilirubin [Mass/Vol] 0.4 mg/dL 0.2 - 1 .3 mg/dL [facility] Calcium [Mass/Vol] 8.5 mg/dL 8.5 - 10. 2 mg/dL [facility] Chloride [Moles/Vol] 104 mmol/L 98 - 10 7 mmol/L [facility] CO2 [Moles/Vol] 23 mmol/L 22 - 30 mmol/L [facility] Creatinine [Mass/Vol] 0.63 mg/dL 0.58 - 0.96 mg/dL [facility] GFR/1.73 sq M.predicted among non-blacks MDRD (S/P/Bld) [Vol rate/Area] 115 mL/min/{1.73_m2} - PINF [facility] Comment on above: Estimated Glomerular Filtration Rate (eGFR) is calculated using the 2020 CKD-EPI creatinine equation. This equation utilizes serum creatinine, sex, and age as parameters. The creatinine assay has traceable calibration to isotope dilution-mass spectrometry. Refer to KDIGO guidelines for clinical interpretation. In patients with unstable renal function, e.g. those with acute kidney injury, the eGFR may not accurately reflect actual GFR. Glucose [Mass/Vol] 82 mg/dL 74 - 99 mg/dL [facility] Comment on above: The [place] Diabete s Association (ADA) provides guidance for cutoff values [...] Standards of Medical Care in Diabetes 2016, [place] Diabetes Association. Diabetes Care. 2016.39(Suppl 1). Interpretation and review of laboratory results Normal [facility] Potassium [Moles/Vol] 4.2 mmol/L 3.7 - 5.1 mmol/L [facility] Protein [Mass/Vol] 6.6 g/dL 6.3 - 8.0 g/dL [facility] Sodium [Moles/Vol] 138 mmol/L 136 - 144 mmol/L [facility] Urea nitrogen [Mass/Vol] 17 mg/dL 7 - 21 mg/dL [facility] Albumin [Mass/Vol] 4.1 g/dL Normal 3.9-4.9 [facility] Comment on above: Order Comment: Speci men Type: BLOOD SPECIMEN Ordering Facility: [facility] Address: [address] [address] Performed By: #### 5 0190-8, 2276-4, 65169-9, 3016-3 #### [facility] CLIA [id number] [address] [facility] [place] [address] [place] ALP [Catalytic activity/Vol] 75 U/L Normal 34-123 [facility] Comment on above: Order Comment: Speci men Type: BLOOD SPECIMEN Ordering Facility: [facility] Address: [address] [place] [address] Performed By: #### 5 0190-8, 2276-4, 35662-7, 3016-3 #### [facility] CLIA [id number] [address] [place] [address] [place] ALT [Catalytic activity/Vol] 12 U/L Normal 7-38 [facility] Comment on above: Order Comment: Speci men Type: BLOOD SPECIMEN Ordering Facility: [facility] Address: [address] [place] [address] Performed By: #### 5 0190-8, 6-4, 20086-9, 3016-3 #### [facility] CLIA [id number] [address] [place] [address] [place] Anion gap [Moles/Vol] 11 mmol/L Normal 8-15 [facility] Comment on above: Order Comment: Speci men Type: BLOOD SPECIMEN Ordering Facility: [facility] Address: [address] [place] [address] Performed By: #### 5 0190-8, 6-4, 60972-0, 3016-3 #### [facility] CLIA [id number] [address] [place] [address] [place] AST [Catalytic activity/Vol] 19 U/L Normal 13-35 [facility] Comment on above: Order Comment: Speci men Type: BLOOD SPECIMEN Ordering Facility: [facility] Address: [address] [place] [address] Performed By: #### 5 0190-8, 6-4, 66062-6, 3016-3 #### [facility] CLIA [id number] [address] [place] [address] [place] Bilirubin [Mass/Vol] 0.4 mg/dL Normal 0.2-1.3 [facility] Comment on above: Order Comment: Speci men Type: BLOOD SPECIMEN Ordering Facility: [facility] Address: [address] [place] [address] Performed By: #### 5 0190-8, 2276-4, 92522-9, 3016-3 #### [facility] CLIA [id number] [address] [place] [address] [place] Calcium [Mass/Vol] 8.5 mg/dL Normal 8.5-10.2 [facility] Comment on above: Order Comment: Speci men Type: BLOOD SPECIMEN Ordering Facility: [facility] Address: [address] [place], [place] [address] Performed By: #### 5 0190-8, 2276-4, 36038-4, 3016-3 #### [facility] CLIA [id number] [address] [place] [address] [place] Chloride [Moles/Vol] 104 mmol/L Normal 98-107 [facility] Comment on above: Order Comment: Speci men Type: BLOOD SPECIMEN Ordering Facility: [facility] Address: [address] [place], [place] [address] Performed By: #### 5 0190-8, 6-4, 67418-6, 3016-3 #### [facility] CLIA [id number] [address] [place] [address] [place] CO2 [Moles/Vol] 23 mmol/L Normal 22-30 [facility] Comment on above: Order Comment: Speci men Type: BLOOD SPECIMEN Ordering Facility: [facility] Address: [address] [place] [address] Performed By: #### 5 0190-8, 2276-4, 80043-1, 3016-3 #### [facility] CLIA [id number] [address] [place] [address] [place] Creatinine [Mass/Vol] 0.63 mg/dL Normal 0.58-0.96 [facility] Comment on above: Order Comment: Speci men Type: BLOOD SPECIMEN Ordering Facility: [facility] Address: [address] [place], [place] [address] Performed By: #### 5 0190-8, 2276-4, 05323-8, 3016-3 #### [facility] CLIA [id number] [address] [facility] [place] [address] [place] Creatinine and Glomerular filtration rate.predicted panel (S/P/Bld) 115 mL/min/1.73m??? Normal >=60 [facility] Comment on above: Order Comment: Se retana Type: BLOOD SPECIMEN Ordering Facility: [facility] Address: [address] [place] [address] Result Comment: Leora mated Glomerular Filtration Rate [...] accurately reflect actual GFR. Performed By: #### 5 0190-8, 2276-4, 17470-0, 3016-3 #### [facility] CLIA [id number] [address] [facility] [place] [address] [place] Glucose [Mass/Vol] 82 mg/dL Normal 74-99 [facility] Comment on above: Order Comment: Se retana Type: BLOOD SPECIMEN Ordering Facility: [facility] Address: [address] [place] [address] Result Comment: The [place] Diabetes Association (ADA) provides guidance for cutoff [...] Standards of Medical Care in Diabetes 2016, [place] Diabetes Association. Diabetes Care. 2016.39(Suppl 1). Performed By: #### 5 0190-8, 2276-4, 46843-7, 3016-3 #### [facility] CLIA [id number] [address] [place] [address] [place] Potassium [Moles/Vol] 4.2 mmol/L Normal 3.7-5.1 [facility] Comment on above: Order Comment: Speci men Type: BLOOD SPECIMEN Ordering Facility: [facility] Address: [address] [place] [address] Performed By: #### 5 0190-8, 6-4, 92719-2, 6-3 #### [facility] CLIA [id number] [address] [place] [address] [place] Protein [Mass/Vol] 6.6 g/dL Normal 6.3-8.0 [facility] Comment on above: Order Comment: Speci men Type: BLOOD SPECIMEN Ordering Facility: [facility] Address: [address] [place] [address] Performed By: #### 5 0190-8, 6-4, 67578-7, 6-3 #### [facility] CLIA [id number] [address] [place] [address] [place] Sodium [Moles/Vol] 138 mmol/L Normal 136-144 [facility] Comment on above: Order Comment: Speci men Type: BLOOD SPECIMEN Ordering Facility: [facility] Address: [address] [place] [address] Performed By: #### 5 0190-8, 6-4, 65047-4, 3016-3 #### [facility] CLIA [id number] [address] [place] [address] [place] Urea nitrogen [Mass/Vol] 17 mg/dL Normal 7-21 [facility] Comment on above: Order Comment: Speci men Type: BLOOD SPECIMEN Ordering Facility: [facility] Address: [address] [place] [address] Performed By: #### 5 0190-8, 6-4, 47289-6, 3016-3 #### [facility] CLIA [id number] [address] [place] [address] [place] FERRITINon 10-02-2024 Ferritin [Mass/Vol] 188.3 ng/mL 14.7 - 205.1 ng/mL [facility] FOLATE, SERUMon 10-02-2024 Folate [Mass/Vol] 18.3 ng/mL 4.7 - PINF ng/mL [facility] Ferritin SerPl-mCncon 2024 Ferritin [Mass/Vol] 188.3 ng/mL Normal 14.7-205.1 [facility] Comment on above: Order Comment: Se retana Type: BLOOD SPECIMEN Ordering Facility: [facility] Address: [address] [place] [address] Performed By: #### 5 0190-8, 2276-4, 30090-6, 3016-3 #### [facility] CLIA [id number] [address] [facility]. [address] Folate SerPl-mCncon 10-03-19 Folate [Mass/Vol] 18.3 ng/mL Normal >4.7 [facility] Comment on above: Order Comment: Se retana Type: BLOOD SPECIMEN Ordering Facility: [facility] Address: [address] [place] [address] Performed By: #### 2 284-8, 2132-9 #### [facility] CLIA [id number] [address] [facility]. [address] HbA1c (Bld)on 10-02-2024 Average glucose Estimated from glycated hemoglobin (Bld) [Mass/Vol] 82 mg/dL [facility] Comment on above: eAG: (Estimated aver age glucose) is a calculated value from HgbA1c and is account executive sales representative of the average blood glucose level in the last 2-3 month period. HbA1c (Bld) [Mass fraction] 4.5 % 4.3 - 5.6 % [facility] Comment on above: [place] Diabetes As sociation guidelines indicate that patients with HgbA1c in the range 5.7-6.4% are at increased risk for development of diabetes, and intervention by lifestyle modification may be beneficial. HgbA1c greater or equal to 6.5% is considered diagnostic of diabetes. [facility] Average glucose Estimated from glycated hemoglobin (Bld) [Mass/Vol] 82 mg/dL Normal [facility] Comment on above: Order Comment: Se retana Type: BLOOD SPECIMEN Ordering Facility: [facility] Address: [address] [place] [address] Result Comment: eAG: (Estimated average glucose) is a calculated value from HgbA1c and is account executive sales representative of the average blood glucose level in the last 2-3 month period. Performed By: #### 5 5454-3 #### [facility] CLIA [id number] [address] [place] [address] [place] HbA1c (Bld) [Mass fraction] 4.5 % Normal 4.3-5.6 [facility] Comment on above: Order Comment: Se retana Type: BLOOD SPECIMEN Ordering Facility: [facility] Address: [address] [place] [address] Result Comment: [place] Diabetes Association guidelines indicate that patients with HgbA1c in the range 5.7-6.4% are at increased risk for development of diabetes, and intervention by lifestyle modification may be beneficial. HgbA1c greater or equal to 6.5% is considered diagnostic of diabetes. Performed By: #### 5 5454-3 #### [facility] CLIA [id number] [address] [place] [address] [place] Iron and Iron binding capaci [facility] 10-02-2024 Interpretation and review of laboratory results Abnormal [facility] Iron [Mass/Vol] 239 ug/dL High 41 - 186 ug/dL [facility] Iron binding capacity [Mass/Vol] 268 ug/dL 232 - 386 ug/dL [facility] Iron/TIBC [Molar ratio] 89.2 % High 15.0 - 57.0 % [facility] Iron [Mass/Vol] 239 ug/dL High 41-186 [facility] Comment on above: Order Comment: Se retana Type: BLOOD SPECIMEN Ordering Facility: [facility] Address: [address] [place] [address] Performed By: #### 5 0190-8, 2276-4, 14316-8, 3016-3 #### [facility] CLIA [id number] [address] [place], [place] [address] [place] [address] [facility] Iron binding capacity [Mass/Vol] 268 ug/dL Normal 232-386 [facility] Comment on above: Order Comment: Speci men Type: BLOOD SPECIMEN Ordering Facility: [facility] Address: [address] [place] [address] Performed By: #### 5 0190-8, 2276-4, 29694-3, 3016-3 #### [facility] CLIA [id number] [address] [place] [address] [facility] Iron/TIBC [Molar ratio] 89.2 % High 15.0-57.0 [facility] Comment on above: Order Comment: Speci men Type: BLOOD SPECIMEN Ordering Facility: [facility] Address: [address] [place] [address] Performed By: #### 5 0190-8, 2276-4, 10951-3, 3016-3 #### [facility] CLIA [id number] [address] [place] [address] [facility] Laboratory - Hematology and Cell countson 10-02-2024 Basophils/100 WBC (Bld) 0.8 % N [facility] Eosinophils/100 WBC (Bld) 2.6 % [facility] Erythrocyte distribution width (RBC) [Ratio] 11.8 % 11.5 - 15.0 % [facility] Hematocrit (Bld) [Volume fraction] 43 % 36.0 - 46.0 % [facility] Hemoglobin (Bld) [Mass/Vol] 14.6 g/dL 11.5 - 15.5 g/dL [facility] Lymphocytes/100 WBC (Bld) 37.3 % [facility] MCH (RBC) [Entitic mass] 30.5 pg 26. 0 - 34.0 pg [facility] MCHC (RBC) [Mass/Vol] 34 g/dL 30.5 - 36.0 g/dL [facility] MCV (RBC) [Entitic vol] 90 fL 80.0 - 100.0 fL [facility] Monocytes/100 WBC (Bld) 4.8 % N [facility] Neutrophils/100 WBC (Bld) 54.4 % [facility] RBC (Bld) [#/Vol] 4.78 10*6/uL 3.90 - 5.2 0 m/uL [facility] No Panel Informationon 10-02 Interpretation and review of laboratory results Normal [facility] Interpretation and review of laboratory results Normal [facility] PTH INTACTon 10-02-2024 Parathyrin.intact [Mass/Vol] 34 pg/mL 15 - 65 pg/mL [facility] PTH-Intact SerPl-mCncon 09-11 Parathyrin.intact [Mass/Vol] 34 pg/mL Normal 15-65 [facility] Comment on above: Order Comment: Speci men Type: BLOOD SPECIMEN Ordering Facility: [facility] Address: [address] [place] [address] Performed By: #### 2 731-8 #### [facility] CLIA [id number] [address] [place] [address] OF [facility] Parathyrin.intact [Mass/Vol] on 10-02-2024 Interpretation and review of laboratory results Normal [facility] THYROID STIMULATING HORMONEo n 10-02-2024 TSH Qn 2.62 m[IU]/L [facility] Comment on above: If the patient is pr egnant, TSH reference range varies by gestational period: First Trimester (weeks 9-12): 0.180-2.990 mIU/L Second Trimester: 0.110-3.980 mIU/L Third Trimester: 0.480-4.710 mIU/L Liam Larson et al. A Practical Approach for the Verifications and Determination of Site- and Trimester-Specific Reference Intervals for Thyroid Function tests in . Thyroid, 2019:29:3:412-420. Pritesh Lemus, et al. 2017 Guidelines of the [place] Thyroid Association for the Diagnosis and Management of Thyroid Disease during and the . Thyroid, 2017:27:3:315-389. TSH SerPl-aCncon 10-02-2024 TSH Qn 2.620 m[IU]/L Normal 0.270-4.200 [facility] Comment on above: Order Comment: Perlitai mazin Type: BLOOD SPECIMEN Ordering Facility: [facility] Address: [address] [place] [address] Result Comment: If t he patient is , TSH reference range varies by gestational period: First Trimester (weeks 9-12): 0.180-2.990 mIU/L Second Trimester: 0.110-3.980 mIU/L Third Trimester: 0.480-4.710 mIU/L Liam Larson et al. A Practical Approach for the Verifications and Determination of Site- and Trimester-Specific Reference Intervals for Thyroid Function tests in . Thyroid, 2019:29:3:412-420. Pritesh Lemus, et al. 2017 Guidelines of the [place] Thyroid Association for the Diagnosis and Management of Thyroid Disease during and the . Thyroid, 2017:27:3:315-389. Performed By: #### 5 0190-8, 2276-4, 28081-4, 3016-3 #### [facility] CLIA [id number] [facility] [place] [address] [place] VITAMIN B1 (THIAMINE), WHOLE BLOODon 10-02-2024 Thiamine (Bld) [Moles/Vol] 244.2 nmol/L High 84.3-213.3 [facility] Comment on above: Order Comment: Speci men Type: BLOOD SPECIMEN Ordering Facility: [facility] Address: [address] [place] [address] [place] [address] Result Comment: This assay measures the concentration of thiamine diphosphate (TDP), the primary active form of vitamin B1. Approximately 90 percent of vitamin B1 present in whole blood is TDP. Thiamine and thiamine monophosphate, which comprise the remaining 10 percent, are not measured. This test was developed, and its performance characteristics determined by the [facility] Department of Pathology and Laboratory Medicine. It has not been cleared or approved by the FDA. The [facility] [facility] Department of Pathology and Laboratory Medicine is regulated under CLIA as qualified to perform high-complexity testing. This test is used for clinical purposes. It should not be regarded as investigational or for research. Performed By: #### 2 284-8, 2132-9 #### [facility] CLIA [id number] [facility] [place] [address] [place] VITAMIN B12on 10-02-2024 Cobalamin (Vitamin B12) [Mass/Vol] 853 pg/mL 232 - 1245 pg/mL [facility] VITAMIN D 25 HYDROXYon 10-02 25-hydroxyvitamin D3 [Mass/Vol] 68.4 ng/mL 31.0 - 80.0 ng/mL [facility] Comment on above: Classification of 25 [place] Vitamin D status: Deficiency/Insufficiency: < or = 30 ng/ml. Sufficiency/Optimal Levels: 31-80 ng/mL Toxicity: > 100 ng/mL. Test performed by chemiluminescent immunoassay. Vit B12 SerPl-mCncon 025 Cobalamin (Vitamin B12) [Mass/Vol] 853 pg/mL Normal 232-1245 [facility] Comment on above: Order Comment: Speci men Type: BLOOD SPECIMEN Ordering Facility: [facility] Address: [address] [place] [address] Performed By: #### 2 284-8, 2132-9 #### [facility] CLIA [id number] [facility] [place] [address] [facility] Laboratory - Microbiology an d Antimicrobial susceptibilityon 06-08-2024 SARS-CoV-2 (COVID-19) RNA ALBERTO+probe Ql (Unsp spec) Negative [facility] No Panel Informationon 06-08 FLU A Negative [facility] FLU B Negative [facility] XR CHEST 2 VIEWSon 5 XR CHEST 2 VIEWS EXAM: XR CHEST 2 VIE WS Clinical History: Cough and congestion Reference Exam: No comparison Findings: The cardiopericardial silhouette is normal in appearance. The pulmonary vessels are not cephalized. There is no alveolar edema, pneumonia, or pneumothorax. Negative for pleural effusion. 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 Postprocedural changes in the upper abdomen likely cholecystectomy related. Impression: Negative for specific acute cardiopulmonic pathology. Dictated on: 06/08/2024 1:21 PM This report has been electronically signed and approved by the interpreting Radiologist. Normal Not Available XR Chest 2 Viewson EXAM: XR CHEST 2 VIE WS Clinical History: Cough and congestion Reference Exam: No comparison Findings: The cardiopericardial silhouette is normal in appearance. The pulmonary vessels are not cephalized. There is no alveolar edema, pneumonia, or pneumothorax. Negative for pleural effusion. 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 Postprocedural changes in the upper abdomen likely cholecystectomy related. Impression: Negative for specific acute cardiopulmonic pathology. Dictated on: 06/08/2024 1:21 PM This report has been electronically signed and approved by the interpreting Radiologist. Braulio Collazo MD - 06/08/2024 EXAM: XR CHEST 2 VIEWS Clinical History: Cough and congestion Reference Exam: No comparison Findings: The cardiopericardial silhouette is normal in appearance. The pulmonary vessels are not cephalized. There is no alveolar edema, pneumonia, or pneumothorax. Negative for pleural effusion. 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 Postprocedural changes in the upper abdomen likely cholecystectomy related. Impression: Negative for specific acute cardiopulmonic pathology. Dictated on: 06/08/2024 1:21 PM This report has been electronically signed and approved by the interpreting Radiologist. [facility] Radiology Study observation (narrative) [facility] XR Chest 2 ViewsOrdered By: Braulio Gardner on 06-08-2024 [facility] Work Phone: Laboratory - Microbiology an d Antimicrobial susceptibilityOrdered By: Alicia Macias on 05-10-2024 SARS-CoV-2 (COVID-19) RNA ALBERTO+probe Ql (Unsp spec) Negative Negative [facility] No Panel InformationOrdered By: Alicia Macias on 05-10-2024 Interpretation and review of laboratory results Normal [facility] CBC panel Auto (Bld)on 04-07 Erythrocyte distribution width (RBC) [Ratio] 12.1 % Normal 11.5-15.0 [facility] Comment on above: Order Comment: Speci men Type: BLOOD SPECIMEN Ordering Facility: [facility] Address: [address] [place] [address] Performed By: #### 5 8410-2 #### [facility] CLIA [id number] [address] [place] [address] Hematocrit (Bld) [Volume fraction] 39.5 % Normal 36.0-46.0 [facility] Comment on above: Order Comment: Speci men Type: BLOOD SPECIMEN Ordering Facility: [facility] Address: [address] [place] [address] Performed By: #### 5 8410-2 #### [facility] CLIA [id number] [address] [place] [address] Hemoglobin (Bld) [Mass/Vol] 14.2 g/dL Normal 11.5-15.5 [facility] Comment on above: Order Comment: Speci men Type: BLOOD SPECIMEN Ordering Facility: [facility] Address: [address] [place] [address] Performed By: #### 5 8410-2 #### [facility] CLIA [id number] [address] [place] [address]994 MCH (RBC) [Entitic mass] 30.9 pg Normal 26.0-34.0 [facility] Comment on above: Order Comment: Speci men Type: BLOOD SPECIMEN Ordering Facility: [facility] Address: [address] [place] [address] Performed By: #### 5 8410-2 #### [facility] CLIA [id number] [address] [place] [address] MCHC (RBC) [Mass/Vol] 35.9 g/dL Normal 30.5-36.0 [facility] Comment on above: Order Comment: Speci men Type: BLOOD SPECIMEN Ordering Facility: [facility] Address: [address] [place] [address] Performed By: #### 5 8410-2 #### [facility] CLIA [id number] [address] [place] [address] 19795 MCV (RBC) [Entitic vol] 86.1 fL Normal 80.0-100.0 [facility] Comment on above: Order Comment: Speci men Type: BLOOD SPECIMEN Ordering Facility: [facility] Address: [address] [place] [address] Performed By: #### 5 8410-2 #### [facility] CLIA [id number] [address] [place] [address] Nucleated RBC (Bld) [#/Vol] 10*3/uL Normal <0.01 [facility] Comment on above: Order Comment: Speci men Type: BLOOD SPECIMEN Ordering Facility: [facility] Address: [address] [place] [address] Performed By: #### 5 8410-2 #### [facility] CLIA [id number] [address] [place] [address] Platelet mean volume (Bld) [Entitic vol] 8.8 fL Low 9.0-12.7 [facility] Comment on above: Order Comment: Speci men Type: BLOOD SPECIMEN Ordering Facility: [facility] Address: [address] [place] [address] Performed By: #### 5 8410-2 #### [facility] CLIA [id number] [address] [place] [address]189 Platelets (Bld) [#/Vol] 251 10*3/uL Normal 150-400 [facility] Comment on above: Order Comment: Speci men Type: BLOOD SPECIMEN Ordering Facility: [facility] Address: [address] [place] [address] Performed By: #### 5 8410-2 #### [facility] CLIA [id number] [address] [place] [address]75 RBC (Bld) [#/Vol] 4.59 10*6/uL Normal 3.90-5.20 [facility] Comment on above: Order Comment: Speci men Type: BLOOD SPECIMEN Ordering Facility: [facility] Address: [address] [place] [address] Performed By: #### 5 8410-2 #### [facility] CLIA [id number] [address] [place] [address]402 WBC (Bld) [#/Vol] 6.05 10*3/uL Normal 3.70-11.00 [facility] Comment on above: Order Comment: Speci men Type: BLOOD SPECIMEN Ordering Facility: [facility] Address: [address] [place] [address] Performed By: #### 5 8410-2 #### [facility] CLIA [id number] [address] [place] [address] [facility] CBC PNL BLD AUTOon 04-07 [facility] NRBC # BLD AUTO <0.01 NINF [facility] PLATELET # BLD AUTO [address] [facility] PMV BLD AUTO 8.8 fL Low 9.0 - 12.7 fL [facility] WBC # BLD AUTO 6.05 [facility] Erythrocyte distribution width (RBC) [Ratio] 12.1 % 11.5 - 15.0 % [facility] Hematocrit (Bld) [Volume fraction] 39.5 % 36.0 - 46.0 % [facility] Hemoglobin (Bld) [Mass/Vol] 14.2 g/dL 11.5 - 15.5 g/dL [facility] Interpretation and review of laboratory results Abnormal [facility] MCH (RBC) [Entitic mass] 30.9 pg 26. 0 - 34.0 pg [facility] MCHC (RBC) [Mass/Vol] 35.9 g/dL 30.5 - 36.0 g/dL [facility] MCV (RBC) [Entitic vol] 86.1 fL 80.0 - 100.0 fL [facility] RBC (Bld) [#/Vol] 4.59 10*6/uL 3.90 - 5.2 0 m/uL [facility] Specimen Type: BLOOD SPECIMEN Ordering Facility: [facility] Address: [address] [place] [address] Original Ordering Provider: [facility] Coding Summaryon 03-06-2024 Coding Summary HTMLBase 64 CungodzuWCj6lXr+PGhlYW Q+CI6YYQUiR50suPWudD2o Q6BVVByMMyhoCUYHPKhPBn HvpiFmYI1keCHeJTQx IC8+EI4uMXSuKflbyQIzt9 J8kQI6Z38yrx2kKJdzyNA4 AEDrDqUgooaqg8lyhJq7GF cuNmluOyBt FVReqF90URV0vF35Uy87wS SidPFsz9hfqSg9UgQjREJm ZSR6cOnhAXwly4ApACKwW4 7pbPTzr6O6 NSBneCfvgPEvYnEvdFX2kK 9jUFpovjkce0gulzhxOym2 ar35jXImb5R7sAM8C7Vkdp Q3HAOflGKb TnqpgYBVzP6pblswt7mvjd deAvTjDOPrGRy3WIa4SAVi mLmoTeQdTY14STL6FBPpum KwA0YpKCZr wFrrPiS9b0E6Ps5TH9AMCp wgZ5RPCGQNEMbrgLQ+PC90 mu24O8CsXthjPsz1JQIgFC X5tPH8oD3l JTSbNNyac0J6iPJ7T3Yanx Posb1vj8klDZIqGIdoS25s jBYcq6W7PTWmqMS7QTNdoG cvYvKsfL35 Oyc+HPHsjSfsb1BzPfapx9 bdh8tayUj3QwjiBUWyrxLq hRtgZTI6x5PtFx5bOTSjlR X8qNG3fO0g PsMlKoN9SHjtJ768WwQbqC JbVhzyP76tD0MuzAV+PHRy Tmm8TPFcdLspAQ5xL5SyKV RpbmctbGVm xIdzXU9qWBRnvrhnRHKuyF 9nHMTxC4r4AbHjZrP8HChf N0ZgXGDzjjixDn09hY2xJh JdVpV6PUzi Q1XthpU6ZXUwbZCyEMlsFH H7T20lg0U3HZSeAZHeROW7 vQV5bQ6bdIpqtrevxTRxzV sgdmVydGlj RYadSPkrL301UQIqgWoaOi NvZGluZyBEYXRlOiAgMTEv MjUvMjAyNDwvdGQ+PHRkIH M7fZanCVCy hPNoYTusNv6urCusdXohBF 3oJRRwicchUBGtsM3zYBWg qPDtwGznFP8jWEFjgbdqk9 70NoPdDLR1 FBOzrHWeH9CgoO6rUhYwQK RwEHFyF1JkzSDnIDufR765 QVbqByV0QLXpnjMbK3YaXK FsaWduOiB0 z2U4Qk5Ln2UpounvR9UsdQ OeWuQcJcryDAy1X5BuLjox dHI+WG83UMRzOM47EQl4GY W6aDqiJHpt VWNxT6YwgU1mEkCeCJXgCT RkOyc+PHRhYmxlIHdpZHRo DFexQMUgYvUsmCrmKR0fTc 9yZGVyLWNv hHplvFIvNtDog3zgKKQqHD daHA2lhKipV2NwjOT7KWSj v7i7Nj43Z80rI5CbnDL+PG NjmWJ6yFQ1 gS2gQaTxJiK7WIcyC834Uo IqcWPjIjzkr2niu5viwVb1 PrM0JTIzawBvcKujYOK1r3 QrLg20W52z IHdpZHRoPSIxNSUiIHZhbG nepb9wlA7zZj4+PGNvbCB3 gXR5mR5dPlRaMxA2WOlkA4 49InRvcCIv Utcap3rit1kswFc2MqNvWX VxnwQnbDrcYXH4w5YmFy71 T1WvcLhdg6MmSsm1hp68tM Xdc5D1bPN5 I5LiZYJlploooSQwqNbzWO 3pDVHcezloVUWprJ1cFPTb G8s4NhGvOfA4COnbH1Swoc C6EBWhgEIr BYEdfZNRnG5umpvkv1nsys xsCrEbMKGvHPp0BHm8ZGYd bDwaFoQeJUM3GfZ8VUB2aR HouW0boNpt guwcbO2vIla+HFV3kGYvrE UMPD2eFrgbzIK+PHRkIHN0 bQqnJOluERLmyJ6rNOQxX0 j5ShGrBaY2 RGkiW9WxweK2SKDfuRGhXE QccSAZaH3fvvkzg4ullcge KiDaDYEoUWq7RVt0GWPrkT duOiBsZWZ0 BcE3GJU4aEUkuE5lmGypzq gjkS2tXqp+QmlydGggRGF0 MVl9Y2AaWae5LMJlrHouQF 0ncGFkZGlu Xv0epYrozWmcLF5kATZpdb mrk507GuPic4qhTQAxkBHn ZEsvYWY8C68wh0P3EKMcZJ ZnFTZ2fHK4 pE9giAofgjvfpPOlfOxtkl CggYcxDExfTYlkR868DNEk dQbkUgJeXLx9A6OuUef1AW YqvVguNN6z yHVhGPvhSu7ugQoklQcxFV 2vQCGynlyln234SgKot9wh CXMcsDTzEQabTCR0O78go8 C2UTCpISPx EMT2mWQ2eO7kqFolttotpO VmdDsgdmVydGljYWwtYWxp J597CHMpwKbeBoLywQd2L3 KmTrt6PMFw wAgrIL2bwKZbRKagYi0yaL yhmTdwEJ9vGAYrzqcwy480 ImYmm9zgHHKumQQgWWvtEE Z8V36jx0Q3 FHYsAUWjVEY0tNT4aQ0rdC lnbjogbGVmdDsgdmVydGlj CMvvPDndA276GUUhhRuaSo BhdGllbnQg FTnqAJm2Q6UpErvsjHR+PC 16LOQyTU88rCOhqHKzi6gf xBc3MhUhBXPrQSL4tKfaDG cor9NhEMBa P34jhCWrh7S8QGOhgFwnrC MuDtZbbSH8wX5oCIapaago b7dtuyrwEyosj6msty35gU 43I36gRHmx ZHRoPSIzMCUiIHZhbGlnbj 3eiL7zLd0+LZAxpXM0xET6 gU0lRZIhVmJ2AIvgC812Ud RvcCIvPjxj p3mso0nfkDd6GrX0DGObad LiiRzgOGA1g5WfYk04Z07x IHdpZHRoPSIyMCUiIHZhbG oyzr2inE8a Ii8+ZBMzzMZ3lHS7tJ7pAo TtZyX3PZqrX196UaEpdIQp JgzjA01dE3XszDY+PHRyPj b0OTAshXmo EE4ktUStHPnzLx4eGFL5Re MqKfMqZTbrL0UzMNVwsxfu ynndkXA3LFLxSBWcxT27Np 9udDogMTBw hXRLjX1zgwdpd1jgvugrXj SzIOPoFNd9GCy3WMCngEir PiNlRGF3IqL3LGC2iHVpoX 1hbGlnbjog qI1hF6ScIMLfaqscEh12sP 9hHeFaOyQ9ABsvWgk+QkVO GtDEYLAUTVXLFGYIK4P9T9 AcHqi3HIQd tYxwMT0yuYKxNVvkNb7flQ hcgDkzAT0hDDPwecqrPBFw oB5yZUOydJRcmJrqZA0pTT Adurtpt035 LzRcTRP5JVJyzOVdM1RdtM 5oReItZAMfDCWzC9LckTUn ACgdH279XYyoPhA0ZJNjss FsE5PsXELv jSpeHlY2w8N9Zp6hHk8iGV 2qUKj2AE48OJ32hZRaw2Z1 pGD1D8HdNQGpddguykumjU W6BSTdCQZt cX06jJJdNTfyOc0hj4H0j7 96BPPoKRVwmB19Pu7hdOtc XHSarYXEcN5ixkfhr1lisu ogIzAwMDAw GZm9IVg9SYUiuPxyPcKqIU T7OiH3VAZ0xHSpbX3drGpc yzoziD5yIsv+MzkgWWVhcn I3P3MjVln4 LGVtbAirMO0vuWOpVVrcBd 2vgYtkfUeoGX7fOWDqsznw WLMnjB6aDFVjpTBnvCeqHF 4wNTBpbjtm c999JtUkKLP1QJWabRPeU0 KbzN7sLdSmAJCnGTCtU5Dt nXIzTUasU068VWawRjI2DT YfqsGiN3Yp KECzcVcrNeD4p1I9Jv0ODO 9GJMU0J2FeWkk2SDJbsPxy UK6laFVeYQpvGc2jbAnbcI ooEC1nIWPr uhozRXJugX8nILNwqJDadE dzYC0dYYAdnwygr275MoXp TNX5BDAfkIXnI5ZjwC4rUl AjMDAwMDAw E6ThiBMyWDgcW960QTinKy Q7MRMzisWaU4KeCAAgaRmp OrL6b8F1Dr8RUgCwexUnkX lvbjwvdGQ+ JD10yf22K4QeTisvBcj6JL KsSBN8fCQ2wI7qVECcOWcr s5Q5vWH1O4WgusBflq7rh6 xsYXBzZTog R00wlTDwj2Y9YECvyUH7IY UxiDasWoPehL58Eex+PGNv nXmur6KnQssjy0max8entZ p7TzJfJWYm tqUuqMkyVCO8j4IqGe61M6 9sIHdpZHRoPSIzMCUiIHZh lPtycq5rwX0fRb7+PGNvbC L2qIO6kT9v RyKwYzK5RBlrG412RlEbkH ZhOmebk0nud8kaiZq0KsQm ILYxsdVzaJszZPV0h9IqHk 30F8RzkLty d5NkSoc8wf33tQZoq0J1sR P9V1LpJEHikouzeFKfhKci AC5bOZJbfsweLYOoiM2pXB GrB3t1GmYy VrF8LSdnA9QkdpG9WBCooF QwBZFnvFIGpM5gkspeh1ts udnnIhUzDFHmBEw0JPf4YQ FsaWduOiBs RQU2BoR0FNW3oVYexU0cdA bshtuniL7qWgs+LBt6m6hp aGDkHP7vqMP7GW67IH43yO Weh1S1xRD9 B7ExXAAkyhicfsglbBL8YH FeLYLnpU58Lt6asGxxHm2x PFBqAFC0VDKitGRkT4GeeW 9yOiAjMDAw HQTuU7GqvRTuIKipA988BM oeJuI3ZVDmytCrK5MsAOJx bDhdXiT9m8D4Qa2FMM61VA 29DE67dJIu f7V9cOZ8K0HaIDZvpvhrim swiRW2TPKiVNVkiB10Jt7p bPlvGb5qKFOjMZC0GMFejH HgK0PowX2g SmZhHIKrKKGcD3MddBCzNQ gwG248YDegSkM3RSTzouDd A2QnLCRxuYvvUpN1r4N3Ay 8RPr19TV65 AK59oJGtr8O0zNL2D6EwUJ UfppuczwobtCN4QESjBREa zL92Xg4rxGbePs9wYTCeQP D1KQMkbLWu U6DkdQ6iBjCpIPPuDPMuR4 TdqIKpHIywP764ZNbqZxU1 UPWrwhTjR0IwPADvsYjoKu B1b9J0Jh7C GQwedvk3K2AsAwquiNA+PC 41VHAmZN55bJCjuAQsk1fj jYv2PfYxOCNnZHF8sUzhRF jhf8PlJFWo Y29 (more content not included)... [facility] Consent Formson 03-01-2024 Consent Forms [id number]#1.0 [facility] Tele[facility] Strips [id number]#1.0 0OTGTIFF [facility] C Urineon 02-25-2024 C Urine <10,000 cfu/ml [facility] Comment on above: Performed By: #### 7 [id number], [id number], [id number] #### [facility] (DEFAULT) [address] [place] [address] MAGR Postoperative Recordon 02-25-2024 MAGR Postoperative Record MAGR Phase II Record Summary Primary Physician: Refugio Sue MD Finalized Date/Time: 02/25/24 14:42:55 Pt. Name: ALLAN BURR EDUIN /Sex: 1985 FEMALE Med Rec #: [id number] Physician: Nav Calvillo MD Financial #: [id number] Pt. Type: O Room/Bed: [facility] Admit/Disch: 02/23/24 03:22:23 - 02/24/24 18:00:00 Institution: Phase II Case Times MAGR Pre-Care Text: Patient is free from s/s of injury. Patient remains free from compromised physical state related to surgery or anesthesia. Patient comfort maintained. Patient/family verbalize understanding of discharge instructions. Entry 1 In PACU II 02/24/24 16:40:00 Discharge from PACU 02/24/24 17:30:00 II Last Modified By: Matilde Aguila RN 02/25/24 14:42:53 Post-Care Text: The patient remains free from s/s of injury. Patient's vital signs stable, circulation maintained, return to preop mental and physical status, opsite/dressing intact, minimal or absent nausea and vomiting, tolerates po intake. Patient verbalizes adequate pain control. Patient/family express understanding of discharge instructions. Finalized By: Matilde Aguila RN Document Signatures Signed By: Matilde Aguila RN 02/25/24 14:42 [facility] .Auto Diff 1on 02-24-2024 Auto [place] % 8 % Normal - [facility] Comment on above: Performed By: #### 7 [id number], [id number], [id number] #### [facility] (DEFAULT) [address] [place] [address] Baso Abs# 0.1 x10 Normal 0.0-0.2 [facility] Comment on above: Performed By: #### 7 [id number], [id number], [id number] #### [facility] (DEFAULT) [address] [place] [address] Basophils/100 WBC (Bld) 1.2 % Normal 0.2-2.0 [facility] Comment on above: Performed By: #### 7 [id number], [id number], [id number] #### [facility] (DEFAULT) [address] [place] [address] Eos Abs# 0.1 x10 Normal 0.0-0.4 [facility] Comment on above: Performed By: #### 7 [id number], [id number], [id number] #### [facility] (DEFAULT) [address] [place] [address] Eosinophils/100 WBC (Bld) 1.3 % Normal 0.9-4.0 [facility] Comment on above: Performed By: #### 7 [id number], [id number], [id number] #### [facility] (DEFAULT) [address] [place] [address] Lymph Abs# 1.7 x10 Normal 1.3-2.9 [facility] Comment on above: Performed By: #### 7 [id number], [id number], [id number] #### [facility] (DEFAULT) [address] [place] [address] Lymphocytes/100 WBC (Bld) 20 % Normal 14-48 [facility] Comment on above: Performed By: #### 7 [id number], [id number], [id number] #### [facility] (DEFAULT) [address] [place] [address] [place] Abs# 0.7 x10 Normal 0.0-0.8 [facility] Comment on above: Performed By: #### 7 [id number], [id number], [id number] #### [facility] (DEFAULT) [address] [place] [address] Neut Abs# 6.1 x10 Normal 1.5-9.2 [facility] Comment on above: Performed By: #### 7 [id number], [id number], [id number] #### [facility] (DEFAULT) [address] [place] [address] Neutrophils/100 WBC (Bld) 70 % Normal 44-88 [facility] Comment on above: Performed By: #### 7 [id number], [id number], [id number] #### [facility] (DEFAULT) [address] [place] [address] Anesthesia Noteon 02-24-2024 Anesthesia Note Patient: STEVE BURR Age: 38 years Sex: FEMALE : 1985 Associated Diagnoses: None Author: Yair Miranda MD Postoperative Information Post Operative Note: Operative Day. Anesthetic utilized: General. Health Status Allergies: Allergic Reactions (All) No known allergies Problem list (past medical history): All Problems No Chronic Problems / Cerner NKP Physical Examination VS/Measurements Vital Signs (last 24 hrs) Last Charted Temp Oral 37.0 DegC (FEB 23 07:18) Heart Rate Monitored H 101 bpm (FEB 23 16:) Resp Rate 16 br/min (FEB 23 16:) SBP H 122 mmHg (FEB 23 16:) DBP 76 mmHg (FEB 23:) Review / Management Condition: Stable. Assessment Anesthetic outcome No anesthetic complications noted. Adequate pain relief. awake, VSS, adequate hydration. No Complaint of nausea and vomiting. Plan Transfer/ Discharge: Patient can be discharged from PACU when criteria met. Condition good. [Electronically Signed on: 02/24/2024 16:26 EST] Yair Miranda MD [Verified on: 02/24/2024 16:26 EST] Yair Miranda MD [facility] Anesthesia Note Patient: STEVE BURR Age: 38 years Sex: FEMALE : 1985 Associated Diagnoses: None Author: Yair Miranda MD Preoperative Information Anesthesia history: Patient history: No difficult intubation, No malignant hyperthermia. Family history: No malignant hyperthermia. Review of Systems Constitutional: Negative. Respiratory: Negative, No shortness of breath. Cardiovascular: No chest pain. Neurologic: Alert and oriented X4. states just occasional cough since pneumonia resolved. Denies fever Health Status Allergies: Allergic Reactions (All) No known allergies Current medications: Home Medications (2) Active Amethia oral tablet 1 tab(s), Oral, Daily tirzepatide 7.5 mg/0.5 mL subcutaneous solution 7.5 mg, Subcutaneous, qWeek Problem list (past medical history): All Problems No Chronic Problems / Cerner NKP Histories Family History: No family history items have been selected or recorded. Procedure history: No active procedure history items have been selected or recorded. Social History Electronic Cigarette/Vaping Assessment Electronic Cigarette Use: Never. Alcohol Assessment Use: Past. Tobacco Assessment Former tobacco user Tobacco Use:. Comment: quit 10 yrs ago Substance Abuse Assessment Substance use: Never. Employment/School Assessment Employed Comment: [employer] in [place] Home/Environment Assessment Living situation: Home/Independent. Exercise Assessment Exercise type: Bicycling. Sexual Assessment Sexually active: Yes. Number of current partners 1. Sexual orientation: Straight or heterosexual. . Social & Psychosocial Habits Alcohol 02/23/2024 Alcohol Use: Past Employment/School 02/23/2024 Status: Employed Comment: [employer] in [place] - 02/23/2024 09:02 - Razia Banks RN Exercise 02/23/2024 Exercise type: Bicycling Home/Environment 02/23/2024 Living situation: Home/Independent Sexual 02/23/2024 Sexually active: Yes Current partners: 1 Self described orientation: Straight or heterosexual Substance Use 02/23/2024 Substance use: Never Tobacco 02/23/2024 Smoking tobacco use: Former tobacco user Comment: quit 10 yrs ago - 11/12/2022 15:53 - Delphine Barros RN Electronic Cigarette/Vaping 02/23/2024 Electronic Cigarette Use: Never . Physical Examination VS/Measurements Vital Signs (last 24 hrs) Last Charted Temp Oral 37.0 DegC (FEB 23:) Heart Rate Peripheral 93 bpm (FEB 23:) Resp Rate 16 br/min (FEB 23) SBP H 123 mmHg (FEB 23:) DBP 79 mmHg (FEB 23:) Airway: Mallampati classification: I (soft palate, fauces, uvula, pillars visible). Temporomandibular joint mobility: Good. Mouth: Adequate opening, Teeth ( Within normal limits ). Neck: Supple, Non-tender, Full range of motion. Respiratory: Lungs are clear to auscultation, Respirations are non-labored, Breath sounds are equal. Cardiovascular: Normal rate, Regular rhythm, No murmur. Neurologic: Alert, Oriented. Review / Management Laboratory Results Plan [place] [employer]#(ASA ) physical status classification: Class II. Anesthetic Preoperative Plan Anesthesia: General. . Anesthetic plan, risks, benefits, and alternatives discussed with the patient and/or family. Patient verbalized understanding. Informed consent was given. Consent was signed by the patient. [Electronically Signed on: 02/24/2024 15:10 EST] Yair Miranda MD [Verified on: 02/24/2024 15:10 EST] Yair Miranda MD Normal [facility] CBC w/ Auto Diffon Erythrocyte distribution width (RBC) [Ratio] 13.1 % Normal 11.5-15.0 [facility] Comment on above: Performed By: #### [id number] #### [facility] (DEFAULT) [address] [place] [address] Hematocrit (Bld) [Volume fraction] 30.3 % Low 33.7-40.4 [facility] Comment on above: Performed By: #### [id number] #### [facility] (DEFAULT) [address] [place] [address] Hemoglobin (Bld) [Mass/Vol] 10.7 g/dL Low 11.3-15.9 [facility] Comment on above: Performed By: #### [id number] #### [facility] (DEFAULT) [address] [place] [address] Man Diff? Auto Invalid Interpretation Code [facility] Comment on above: Performed By: #### [id number] #### [facility] (DEFAULT) [address] [place] [address] MCH (RBC) [Entitic mass] 31 pg Normal 24-34 [facility] Comment on above: Performed By: #### [id number] #### [facility] (DEFAULT) [address] [place] [address] MCHC (RBC) [Mass/Vol] 35 g/dL Normal 26-37 [facility] Comment on above: Performed By: #### 7 [id number], [id number], [id number] #### [facility] (DEFAULT) [address] [place] [address] MCV (RBC) [Entitic vol] 89 fL Normal 81-100 [facility] Comment on above: Performed By: #### 7 739808, 27527351, [id number] #### [facility] (DEFAULT) [address] [place] [address] 60632 Platelet 359 x10 Normal 138-427 [facility] Comment on above: Performed By: #### 7 371580, 18871504, [id number] #### [facility] (DEFAULT) [address] [place] [address] 64190 Platelet mean volume (Bld) [Entitic vol] 7.1 fL Normal 6.3-10.2 [facility] Comment on above: Performed By: #### 7 224885, 81579994, [id number] #### [facility] (DEFAULT) [address] [place] [address] 45681 RBC 3.41 x10 Low 3.70-5.30 [facility] Comment on above: Performed By: #### 7 357461, 27765309, [id number] #### [facility] (DEFAULT) [address] [place] [address] 25422 WBC 8.7 x10 Normal 3.5-10.5 [facility] Comment on above: Performed By: #### 7 620959, 83722916, [id number] #### [facility] (DEFAULT) [address] [place] [address] 84347 CMP Standardon 02-24-2024 eGFR Non AA >60 Invalid Interpretation Code [facility] Comment on above: Performed By: #### 7 570467, 51135247, [id number] #### [facility] (DEFAULT) [address] [place] [address] 11519 eGFR AA >60 Invalid Interpretation Code [facility] Comment on above: Performed By: #### 7 501427, 05128826, [id number] #### [facility] (DEFAULT) [address] [place] [address] 41221 Albumin [Mass/Vol] 2.6 g/dL Low 3.5-5.0 [facility] Comment on above: Performed By: #### 7 292756, 88679480, [id number] #### [facility] (DEFAULT) [address] [place] [address] 75936 Albumin/Globulin [Mass ratio] 0.9 {ratio} Low 1.4-2.6 [facility] Comment on above: Performed By: #### 7 470289, 90148626, [id number] #### [facility] (DEFAULT) [address] [place] [address] 18848 Alk Phos 56 IU/L Normal 32-91 [facility] Comment on above: Performed By: #### 7 600132, 35617770, [id number] #### [facility] (DEFAULT) [address] [place] [address] 54466 ALT [Catalytic activity/Vol] 19.0 U/L Normal 14.0-54.0 [facility] Comment on above: Performed By: #### 7 129224, 82655294, [id number] #### [facility] (DEFAULT) [address] [place] [address] 80772 Anion gap [Moles/Vol] 4.8 mmol/L Low 5.0-19.0 [facility] Comment on above: Performed By: #### 7 528491, 34305597, [id number] #### [facility] (DEFAULT) [address] [place] [address] 64408 AST [Catalytic activity/Vol] 18 U/L Normal 15-41 [facility] Comment on above: Performed By: #### 7 121674, 66518727, [id number] #### [facility] (DEFAULT) [address] [place] [address] 36884 Bili Total 0.6 mg/dL Normal 0.3-1.2 [facility] Comment on above: Performed By: #### 7 486305, 40877076, [id number] #### [facility] (DEFAULT) [address] [place] [address] 21951 Calcium [Mass/Vol] 7.2 mg/dL Low 8.9-10.3 [facility] Comment on above: Performed By: #### 7 967277, 51947039, [id number] #### [facility] (DEFAULT) [address] [place] [address] 08169 Chloride [Moles/Vol] 110 mmol/L Normal 101-111 [facility] Comment on above: Performed By: #### 7 381581, 57744961, [id number] #### [facility] (DEFAULT) [address] [place] [address] 95001 CO2 [Moles/Vol] 21 mmol/L Normal 21-32 [facility] Comment on above: Performed By: #### 7 016627, 01528397, [id number] #### [facility] (DEFAULT) [address] [place] [address] 32687 Creatinine [Mass/Vol] 0.98 mg/dL Normal 0.60-1.30 [facility] Comment on above: Performed By: #### 7 110400, 91538552, [id number] #### [facility] (DEFAULT) [address] [place] [address] 22880 Globulin (S) [Mass/Vol] 2.8 g/dL Normal 1.5-4.3 [facility] Comment on above: Performed By: #### 7 564039, 72586035, [id number] #### [facility] (DEFAULT) [address] [place] [address] 85037 Glucose [Mass/Vol] 79.0 mg/dL Normal 74.0-118.0 [facility] Comment on above: Performed By: #### 7 488547, 78613203, [id number] #### [facility] (DEFAULT) [address] [place] [address] 28745 Osmolality 264 mOsm/L Invalid Interpretation Code [facility] Comment on above: Performed By: #### 7 237674, 26866992, [id number] #### [facility] (DEFAULT) [address] [place] [address] 49798 Potassium [Moles/Vol] 3.8 mmol/L Normal 3.6-5.1 [facility] Comment on above: Performed By: #### 7 801634, 16064005, [id number] #### [facility] (DEFAULT) [address] [place] [address] 92861 Protein [Mass/Vol] 5.4 g/dL Low 6.5-8.1 [facility] Comment on above: Performed By: #### 7 363116, 41800304, [id number] #### [facility] (DEFAULT) [address] [place] [address] 11488 Sodium [Moles/Vol] 132.0 mmol/L Low 136.0-144.0 [facility] Comment on above: Performed By: #### 7 730977, 06383618, [id number] #### [facility] (DEFAULT) [address] [place] [address] 33365 Urea nitrogen [Mass/Vol] 15 mg/dL Normal 8-26 [facility] Comment on above: Performed By: #### 7 409080, 96522115, [id number] #### [facility] (DEFAULT) [address] [place] [address] Urea nitrogen/Creatinine [Mass ratio] 15.3 mg/mg Normal 4.6-16.2 [facility] Comment on above: Performed By: #### 7 671925, 93190263, [id number] #### [facility] (DEFAULT) [address] [place] [address] 76953 Inpatient Patient Summaryon 02-24-2024 Inpatient Patient Summary [address] [address] Patient Discharge Instructions Name: ALLAN BURR : 1985 Patient Address: [address] [place] [address] Primary Care Provider: Name: MARIYA HUERTA Phone: After you are discharged if you find you have any questions, please, call [phone] ext [phone] to speak to a nurse. The Pharmacy at [facility] is open Wednesday through Wednesday from 9A to 6P and Wednesday and Wednesday from 9A to 5P Discharge Diagnosis: Hydronephrosis; Nephrolithiasis; Pneumonia; Renal colic on left side Prescription Information: If you have been given a prescription for narcotics, seek immediate medical attention if you have any difficulty breathing or any sudden status changes such as confusion and sleepiness. If you or anyone you know is experiencing suicidal thoughts, mental health, alcohol and/or drug addiction problems; contact the [facility] 02/11 Crisis Hotline -Text 7OYUC pv 065977. If you received any narcotics, sedation, or [...] business decisions or sign any legal documents [facility] would like to thank you for allowing us to assist you with your healthcare needs. The following includes patient education materials and information regarding your injury/illness. ALLAN BURR has been given the following list of follow-up instructions, prescriptions, and patient education materials: Follow-up Instructions With: Address: When: MARIYA HUERTA With: Address: When: Pull Ureteral Stents on WEDNESDAY Dr. Sue's office will call you for follow up. Medications During the course of your visit, your medication list was updated with the most current information. The details of those changes are reflected below: New Medications [facility]/pharmacy #[id number], [address] [place], [place] [id number], [phone] tamsulosin (Flomax 0.4 mg oral capsule) 1 cap(s) Oral (given by mouth) At bedtime. MAGRU. Refills: 0. Medications to Continue That Have Not Changed Other Medications ethinyl estradiol-levonorgestr el (Amethia oral tablet) 1 tab(s) Oral (given by mouth) every day. tirzepatide (tirzepatide 7.5 mg/0.5 mL subcutaneous solution) 7.5 Milligram Subcutaneous (under the skin) every week. It is important to always keep an active list of medications available so that you can share with other providers and manage your medications appropriately. As an additional courtesy, we are also providing you with your final active medications list that you can keep with you. ethinyl estradiol-levonorgestr el (Amethia oral tablet) 1 tab(s) Oral (given by mouth) every day. tamsulosin (Flomax 0.4 mg oral capsule) 1 cap(s) Oral (given by mouth) At bedtime. MAGRU. Refills: 0. tirzepatide (tirzepatide 7.5 mg/0.5 mL subcutaneous solution) 7.5 Milligram Subcutaneous (under the skin) every week. Take only the medications listed above. Contact your doctor prior to taking any medications not on this list. Medication leaflets, if any, will display below Diet & Activity Patient Activity Level: As Tolerated Patient Diet: Regular Patient Activity Restrictions: Other: pull stents on Wednesday. Dr. Kramer office will call you to set up follow up. Patient education materials, if any, will display below Kidney Stones Kidney stones are solid, rock-like deposits that form inside of the kidneys. The kidneys are a pair of organs that make urine. A kidney stone may form in a kidney and move into other parts of the urinary tract, including the tubes that connect the kidneys to the bladder (ureters), the bladder, and the tube that carries urine out of the body (urethra). As the stone moves through these areas, it can cause intense pain and block the flow of urine. Kidney stones are created when high levels of certain minerals are found in the urine. The stones are usually passed out of the body through urination, but in some cases, medical treatment may be needed to remove them. What are the causes? Kidney stones may be caused by: ? A condition in which certain glands produce too much parathyroid hormone (primary hyperparathyroidism), which causes too much calcium buildup in the blood. ? A buildup of uric acid crystals in the bladder (hyperuricosuria). Uric acid is a chemical that the body produces when you eat certain foods. It usually leaves the body in the urine. ? Narrowing (stricture) of one or both of the ureters. ? A kidney blockage that is present at (congenital obstruction). ? Past surgery on the kidney or the ureters. What increases the risk? The (more content not included)... Normal [facility] MAGR Intraoperative Recordon 02-24-2024 MAGR Intraoperative Record MAGR Intra-Op Record Summary Primary Physician: Refugio Sue MD Finalized Date/Time: 02/24/24 16:35:05 Pt. Name: ALLAN BURR EDUIN Richardson/Sex: 1985 FEMALE Med Rec #: [id number] Physician: Nav Calvillo MD Financial #: [id number] Pt. Type: O Room/Bed: [facility]/ Admit/Disch: 02/23/24 03:22:23 - Institution: Case Times MAGR Entry 1 Patient In Room Time 02/24/24 15:11:00 Out Room Time 02/24/24 16:17:00 Anesthesia Start Time 02/24/24 15:11:00 Stop Time 02/24/24 16:18:00 Surgery Start Time 02/24/24 15:35:00 Stop Time 02/24/24 16:08:00 Last Modified By: Carmen Plummer RN 02/24/24 16:20:13 Case Attendance MAGR Entry 1 Entry 2 Entry 3 Case Attendee Refugio Sue MD, Robert M MD Long, Barbara RN Role Performed Surgeon - Primary Anesthesiologist of Manager French Record Time In 02/24/24 15:34:00 02/24/24 15:11:00 02/24/24 15:11:00 Time Out 02/24/24 16:08:00 02/24/24 16:17:00 02/24/24 16:17:00 Procedure Cystoscopy with Holmium Cystoscopy with Holmium Cystoscopy with Holmium Laser Laser Laser Last Modified By: Carmen Plummer RN, Barbara RN Long, Barbara RN 02/24/24 16:20:14 02/24/24 16:20:14 02/24/24 16:20:14 Entry 4 Entry 5 Entry 6 Case Attendee Bradley CHAVEZ, Amparo Nye CST CSFA Hiral Kay (R) CSFA AUTOMATIC DOOR MECHANIC CT Role Performed Scrub Personnel Laborer Steel Handling Senior Network Administrator Time In 02/24/24 15:11:00 02/24/24 15:11:00 02/24/24 15:11:00 Time Out 02/24/24 16:17:00 02/24/24 16:17:00 02/24/24 16:17:00 Procedure Cystoscopy with Holmium Cystoscopy with Holmium Cystoscopy with Holmium Laser Laser Laser Last Modified By: Carmen Plummer RN, Barbara RN Long, Barbara RN 02/24/24 16:20:14 02/24/24 16:20:14 02/24/24 16:20:42 Surgical Procedures MAGR Pre-Care Text: A.20 Verifies operative procedure, surgical site, and laterality Im.150 Develops individualized plan of care Entry 1 Procedure Cystoscopy with Holmium Primary Procedure Yes Laser Primary Surgeon Refugio Sue MD Surgeon Comment CYSTO LEFT URETEROSCOPY HOLMIUM LASER LEFT STENT PLACEMENT Start 02/24/24 15:35:00 Stop 02/24/24 16:08:00 Anesthesia Type General Surgical Service Urology Wound Class Clean-Contaminated Technique Details Closure Technique N/A Entire procedure No was performed via laparoscope or robotic assistance Last Modified By: Carmen Plummer RN 02/24/24 16:20:16 Post-Care Text: O.730 The patient's care is consistent with the individualized perioperative plan of care General Case Data MAGR Pre-Care Text: A.350.1 Classifies surgical wound Entry 1 Case Information OR MAGR OR 01 Case Level Level 4 Wound Class Clean-Contaminated Specialty Urology ASA Class 2 Diagnosis Preop Diagnosis LEFT RENAL CALCULI Postop Same As Preop Yes Postop Diagnosis LEFT RENAL CALCULI Blunt or No Is the procedure No penetrating injury considered occured prior to Emergent/Urgent? the start of the procedure: Last Modified By: Carmen Plummer RN 02/24/24 15:32:17 Post-Care Text: O.760 Patient receives consistent and comparable care regardless of the setting Time Out MAGR Entry 1 Procedure(s) Cystoscopy with Holmium Laser Time Out Checklist Verifications Team Introductions Yes Confirmed Identity, Yes Completed Procedure, Incision Site, and Consent(s) Presence of Yes Site Verification, Yes Necessary Site Marking, Site Procedural Marking Equipment, Devices, Alternative, and/or and Implants Site Marking Verified Exception in Accordance with Facility Policy Anesthesia Review Antibiotic Received Yes All Anesthesia Yes Within an Concerns Addressed Appropriate Time Interval Prior to Surgical Incision Surgeon Review Anticipated Blood Yes Expected Case Yes Loss Risk Addressed Duration Addressed Critical and Yes Non-Routine Steps to be Performed Addressed Nurse Review Equipment Yes Fire Risk Yes Checks/Concerns Assessment Addressed Completed and Interventions Performed Diagnostic and n/a Sterilization n/a Radiological Test Concerns Addressed Results Displayed are Appropriate and Labeled Other Concerns n/a Addressed Time Out Refugio Sue MD, Time Out Time 02/24/24 15:34:00 Participants Yair Miranda MD, Carmen Plummer RN, Amparo LamA AUTOMATIC DOOR MECHANIC, Bradley AUTOMATIC DOOR MECHANIC, Eleni CHAVEZ CSFA Last Modified By: Carmen Plummer RN 02/24/24 15:35:43 Patient Positioning MAGR Pre-Care Text: A.280 Identifies baseline musculoskeletal status Im.40 Positions the patient Im.80 Applies safety devices Entry 1 Procedure Cystoscopy with Holmium Body Position Low Lithotomy Laser Left Arm Position Extended on padded arm Right Arm Position Extended on padded arm board board Left Leg Position Secured in Stirrup Right Leg Position Secured in Stirrup Press Points Checked Yes Positioning Device Safety Strap, Stirrups Outcome Met (O.80) Yes Last Modified By: Carmen Plummer RN 02/24/24 15:3 (more content not included)... [facility] Record MAGR PACU Record Summary Primary Physician: Refugio Sue MD Finalized Date/Time: 02/24/24 16:39:37 Pt. Name: ALLAN BURR /Sex: 1985 FEMALE Med Rec #: [id number] Physician: Nav Calvillo MD Financial #: [id number] Pt. Type: O Room/Bed: [facility] Admit/Disch: 02/23/24 03:22:23 - Institution: PACU Case Times MAGR Entry 1 In PACU I 02/24/24 16:17:00 Discharge from PACU 02/24/24 16:39:00 I Last Modified By: Carmen Plummer RN 02/24/24 16:39:34 Finalized By: Carmen Plummer RN Document Signatures Signed By: Carmen Plummer RN 02/24/24 16:39 [facility] Progress Note - Nurseon 11- Progress Note - Nurse Patient discharged at this time to home via private vehicle. Discharge paperwork reviewed with patient and spouse prior to discharge. All personal belongings taken. [Electronically Signed on: 02/24/2024 18:20 EST] Tequila Arguello RN [Verified on: 02/24/2024 18:20 EST] Tequila Arguello RN [facility] Progress Note - Nurse Patient taken to surgery at this time. Bedside report given to Mara RAMOS. Patient transported to surgery unit by bed, LR running at 20ml/hr per orders. [Electronically Signed on: 02/24/2024 14:12 EST] Tequila Arguello RN [Verified on: 02/24/2024 14:12 EST] Tequila Arguello RN [facility] XR Abdomen Single View (KUB) on 02-24-2024 XR Abdomen Single View (KUB) EXAM: XR Abdomen Single View (KUB) HISTORY: LEFT STENT PLACEMENT OR #1 COMPARISON: Relevant priors reviewed TECHNIQUE: Fluoroscopy was provided by the radiology department for procedure. Radiologist was not present during examination. FINDINGS/IMPRESSION: 25.5 seconds of fluoroscopy. Fluoroscopy dose: 7.82 mGy Report for radiation dosage reporting and documentation. 3 spot views of the abdomen were obtained. Evaluation of detail is limited by technique. Please refer to the operative report for full details. Final Dictated by: Champ Santa MD Dictated DT/TM: 03/01/24 8:25 Signed (Electronic Signature): Champ Santa MD 03/01/24 8:26 am Technologist: [facility] XR Fluoroscopy Up to 1 Houro n 02-24-2024 XR Fluoroscopy Up to 1 Hour EXAM: XR Abdomen Single View (KUB) HISTORY: LEFT STENT PLACEMENT OR #1 COMPARISON: Relevant priors reviewed TECHNIQUE: Fluoroscopy was provided by the radiology department for procedure. Radiologist was not present during examination. FINDINGS/IMPRESSION: 25.5 seconds of fluoroscopy. Fluoroscopy dose: 7.82 mGy Report for radiation dosage reporting and documentation. 3 spot views of the abdomen were obtained. Evaluation of detail is limited by technique. Please refer to the operative report for full details. Final Dictated by: Champ Santa MD Dictated DT/TM: 03/01/24 8:25 Signed (Electronic Signature): Champ Santa MD 03/01/24 8:26 am Technologist: [facility] .Auto Diff 1on 02-23-2024 Auto [place] % 6 % Normal 04-23 [facility] Comment on above: Performed By: #### 1 [id number], 6020663, 4868222254, 7347478171, 7300608347, 3254307, 62003806 ####[facility] (DEFAULT)[address] [place] [address] Baso Abs# 0.1 x10 Normal 0.0-0.2 [facility] Comment on above: Performed By: #### 1 [id number], 4618838, 2778019386, 6279788998, 7569010395, 4781972, 05359511 ####[facility] (DEFAULT)[address] [place] [address] 48156 Basophils/100 WBC (Bld) 0.7 % Normal 0.2-2.0 [facility] Comment on above: Performed By: #### 1 [id number], 9700985, 8924550351, 2117729368, 9363093146, 3523414, 77988031 ####[facility] (DEFAULT)[address] [place] [address] 39614 Eos Abs# 0.1 x10 Normal 0.0-0.4 [facility] Comment on above: Performed By: #### 1 159237257, 3086438, 0087023245, 5764346955, 4838278383, 6232319, 12527957 ####[facility] (DEFAULT)[address] [place] [address] 56800 Eosinophils/100 WBC (Bld) 1.5 % Normal 0.9-4.0 [facility] Comment on above: Performed By: #### 1 324883198, 2605887, 7458730347, 5148751045, 2600575323, 4896454, 82473449 ####[facility] (DEFAULT)[address] [place] [address] 67900 Lymph Abs# 2.9 x10 Normal 1.3-2.9 [facility] Comment on above: Performed By: #### 1 942164101, 0952148, 2099858077, 4652259960, 0555493306, 3222081, 46530998 ####[facility] (DEFAULT)[address] [place] [address] 81157 Lymphocytes/100 WBC (Bld) 34 % Normal 14-48 [facility] Comment on above: Performed By: #### 1 227702472, 4944037, 3749729395, 3520781936, 6884496003, 2789197, 21268000 ####[facility] (DEFAULT)[address] [place] [address] 98356 [place] Abs# 0.5 x10 Normal 0.0-0.8 [facility] Comment on above: Performed By: #### 1 423226974, 8153067, 7708008922, 9877763020, 1106988567, 9253671, 58660368 ####[facility] (DEFAULT)[address] [place] [address] 06132 Neut Abs# 4.9 x10 Normal 1.5-9.2 [facility] Comment on above: Performed By: #### 1 365658906, 3564706, 9696182349, 5561758851, 0356285798, 8175053, 10340731 ####[facility] (DEFAULT)[address] [place] [address] Neutrophils/100 WBC (Bld) 58 % Normal 44-88 [facility] Comment on above: Performed By: #### 1 983171505, 1423175, 0059286145, 7951156150, 7138100385, 7243863, 37612014 ####[facility] (DEFAULT)[address] [place] [address] 04623 CBC w/ Auto Diffon 4 Erythrocyte distribution width (RBC) [Ratio] 13.5 % Normal 11.5-15.0 [facility] Comment on above: Performed By: #### 1 608935579, 4116916, 8277232430, 5199194640, 4338357013, 7214704, 28421459 ####[facility] (DEFAULT)[address] [place] [address] 81404 Hematocrit (Bld) [Volume fraction] 33.8 % Normal 33.7-40.4 [facility] Comment on above: Performed By: #### 1 825507697, 8143933, 3513450780, 4076848338, 0303118325, 4644502, 93580333 ####[facility] (DEFAULT)[address] [place] [address] 62058 Hemoglobin (Bld) [Mass/Vol] 11.6 g/dL Normal 11.3-15.9 [facility] Comment on above: Performed By: #### 1 897203940, 1207033, 1858080989, 1962815656, 9789726660, 1501101, 96076618 ####[facility] (DEFAULT)[address] [place] [address] 35443 Man Diff? Auto Invalid Interpretation Code [facility] Comment on above: Performed By: #### 1 874953982, 2520903, 4594932663, , , 4001865, 51516323 ####[facility] (DEFAULT)[address] [place] [address] 81901 MCH (RBC) [Entitic mass] 30 pg Normal 24-34 [facility] Comment on above: Performed By: #### 1 211584048, 2303673, 5123103495, , 2073814126, 4493457, 55833693 ####[facility] (DEFAULT)[address] [place] [address] 23541 MCHC (RBC) [Mass/Vol] 34 g/dL Normal 26-37 [facility] Comment on above: Performed By: #### 1 249074894, 5521398, 4245358652, , 8153951197, 5959067, 87691026 ####[facility] (DEFAULT)[address] [place] [address] 03830 MCV (RBC) [Entitic vol] 89 fL Normal 81-100 [facility] Comment on above: Performed By: #### 1 134356735, 1232852, 6185517584, , , 1084999, 25528908 ####[facility] (DEFAULT)[address] [place] [address] 99027 Platelet 504 x10 High 138-427 [facility] Comment on above: Performed By: #### 1 683479898, 2226848, , , 6217963429, 7494686, 18711234 ####[facility] (DEFAULT)[address] [place] [address] 60981 Platelet mean volume (Bld) [Entitic vol] 7.1 fL Normal 6.3-10.2 [facility] Comment on above: Performed By: #### 1 309820742, 2424260, 7819539982, 4543138533, 9343881268, 8891310, 04815866 ####[facility] (DEFAULT)[address] [place] [address] 06060 RBC 3.82 x10 Normal 3.70-5.30 [facility] Comment on above: Performed By: #### 1 923842696, 4859069, 6648058739, 9223187242, 8170318074, 0785616, 30614874 ####[facility] (DEFAULT)[address] [place] [address] 18324 WBC 8.5 x10 Normal 3.5-10.5 [facility] Comment on above: Performed By: #### 1 586959130, 1533527, 5521586072, 0657087859, 3177946549, 2505205, 28609672 ####[facility] (DEFAULT)[address] [place] [address] [facility] Standardon 02-23-2024 eGFR Non AA >60 Invalid Interpretation Code [facility] Comment on above: Performed By: #### 1 110753583, 6874202, 1636503839, 3451711264, 2709559509, 8666383, 37082922 ####[facility] (DEFAULT)[address] [place] [address] 66395 eGFR AA >60 Invalid Interpretation Code [facility] Comment on above: Performed By: #### 1 [id number], [id number], [id number], [id number], [id number], 3339441, [id number] ####[facility] (DEFAULT)[address] [place] [address] 64840 Albumin [Mass/Vol] 3.1 g/dL Low 3.5-5.0 [facility] Comment on above: Performed By: #### 1 [id number], [id number], [id number], [id number], [id number], 8381308, [id number] ####[facility] (DEFAULT)[address] [place] [address] 18683 Albumin/Globulin [Mass ratio] 0.9 {ratio} Low 1.4-2.6 [facility] Comment on above: Performed By: #### 1 [id number], [id number], [id number], [id number], 8710639700, 1091990, 27081170 ####[facility] (DEFAULT)[address] [place] [address] Alk Phos 60 IU/L Normal 32-91 [facility] Comment on above: Performed By: #### 1 [id number], 8900206, [id number], [id number], 1700716859, 9994001, [id number] ####[facility] (DEFAULT)[address] [place] [address] ALT [Catalytic activity/Vol] 22.0 U/L Normal 14.0-54.0 [facility] Comment on above: Performed By: #### 1 [id number], 3335368, [id number], , [id number], 6266938, 44944995 ####[facility] (DEFAULT)[address] [place] [address] Anion gap [Moles/Vol] 9.9 mmol/L Normal 5.0-19.0 [facility] Comment on above: Performed By: #### 1 [id number], 6085706, 4989314726, 6212469129, 2345577770, 6134153, 85468735 ####[facility] (DEFAULT)[address] [place] [address] 55331 AST [Catalytic activity/Vol] 24 U/L Normal 15-41 [facility] Comment on above: Performed By: #### 1 [id number], 2894128, 2514983006, 7409539380, 2246308056, 4750760, 46928799 ####[facility] (DEFAULT)[address] [place] [address] Bili Total 0.6 mg/dL Normal 0.3-1.2 [facility] Comment on above: Performed By: #### 1 [id number], 3162812, 6913018880, 6197260783, 5497104981, 6197189, 13133035 ####[facility] (DEFAULT)[address] [place] [address] 17690 Calcium [Mass/Vol] 8.0 mg/dL Low 8.9-10.3 [facility] Comment on above: Performed By: #### 1 [id number], 2068037, 8364542785, 1092685466, 0257845178, 6913433, 99233014 ####[facility] (DEFAULT)[address] [place] [address] 06568 Chloride [Moles/Vol] 107 mmol/L Normal 101-111 [facility] Comment on above: Performed By: #### 1 [id number], 2902257, 6676412613, 1104704465, 8518248371, 0317011, 29162160 ####[facility] (DEFAULT)[address] [place] [address] 71620 CO2 [Moles/Vol] 22 mmol/L Normal 21-32 [facility] Comment on above: Performed By: #### 1 [id number], 2045576, 3129942157, 8065063473, 9516119397, 8655073, 80104571 ####[facility] (DEFAULT)[address] [place] [address] 14061 Creatinine [Mass/Vol] 0.81 mg/dL Normal 0.60-1.30 [facility] Comment on above: Performed By: #### 1 [id number], 2521546, 8606669084, 3267449223, 5144175464, 5182820, 32753892 ####[facility] (DEFAULT)[address] [place] [address] 26178 Globulin (S) [Mass/Vol] 3.4 g/dL Normal 1.5-4.3 [facility] Comment on above: Performed By: #### 1 [id number], 2028298, 8708408003, , 3591582910, 4078884, 32460593 ####[facility] (DEFAULT)[address] [place] [address] 31993 Glucose [Mass/Vol] 84.0 mg/dL Normal 74.0-118.0 [facility] Comment on above: Performed By: #### 1 [id number], 5092972, 7142790155, 9337609375, 2307844507, 5568547, 38185708 ####[facility] (DEFAULT)[address] [place] [address] 56722 Osmolality 272 mOsm/L Invalid Interpretation Code [facility] Comment on above: Performed By: #### 1 [id number], 6433165, 6048118584, , 3904898647, 9310671, 25684186 ####[facility] (DEFAULT)[address] [place] [address] 55434 Potassium [Moles/Vol] 3.9 mmol/L Normal 3.6-5.1 [facility] Comment on above: Performed By: #### 1 [id number], 0171224, 6279995801, , 7836665804, 3567651, 41963482 ####[facility] (DEFAULT)[address] [place] [address] 64795 Protein [Mass/Vol] 6.5 g/dL Normal 6.5-8.1 [facility] Comment on above: Performed By: #### 1 [id number], 6840616, 9186438936, , 3676394968, 5229619, 40878709 ####[facility] (DEFAULT)[address] [place] [address] 82708 Sodium [Moles/Vol] 135.0 mmol/L Low 136.0-144.0 [facility] Comment on above: Performed By: #### 1 [id number], 7396927, , , 2792956259, 6924332, 96514810 ####[facility] (DEFAULT)[address] [place] [address] 50964 Urea nitrogen [Mass/Vol] 19 mg/dL Normal 8-26 [facility] Comment on above: Performed By: #### 1 [id number], 3132936, , , 3436304363, 7146426, 53942383 ####[facility] (DEFAULT)[address] [place] [address] 35866 Urea nitrogen/Creatinine [Mass ratio] 23.4 mg/mg High 4.6-16.2 [facility] Comment on above: Performed By: #### 1 [id number], 2738271, 9583340958, 8591790684, 6116770788, 6029834, 17099224 ####[facility] (DEFAULT)[address] [place] [address] CT Abdomen/Pelvis w/o Contra ston 02-23-2024 CT Abdomen/Pelvis w/o Contrast EXAMINATION: CT Abdomen/Pelvis w/o Contrast, 02/23/2024 5:14 AM EST HISTORY: left flank pain COMPARISON: None. TECHNIQUE: CT scan of the abdomen and pelvis was performed without IV contrast. Sagittal and coronal reconstructions are provided. CT dose reduction technique was used, including Automated Exposure Control. FINDINGS: CT ABDOMEN: Right middle lobe consolidation with air bronchograms could reflect pneumonia or pulmonary parenchymal scarring. Mild tree-in-bud infiltrates in the bilateral lower lobes are compatible with small airway infection, right greater than left. There is linear fibrotic scarring in the inferior left lower lobe. Cardiac size is normal. There is no pericardial effusion. Cholecystectomy clips are present. There is no biliary ductal dilatation. The exam is limited by the lack of IV contrast. Solid organ lesions or acute abnormalities could be missed. Allowing for this, the liver, pancreas, spleen, adrenal glands, aorta and IVC are grossly unremarkable. There is mild left hydronephrosis due to a 10 mm stone at the left UPJ on image 68 of series 2. Additional smaller stones are noted in both kidneys, left greater than right. Mild left perinephric fat stranding is noted. The kidneys are otherwise unremarkable. Surgical change for gastric sleeve bypass is noted. The stomach and small bowel are otherwise unremarkable. CT PELVIS: The appendix, pelvic small bowel loops, colon, uterus and urinary bladder are unremarkable. No inflammatory fat stranding, free fluid, loculated fluid or free air is seen in the abdomen or pelvis. A mild lumbar levoscoliosis is noted. No acute osseous abnormality or suspicious bony lesion is seen. IMPRESSION: 1. The patient's left flank pain is due to a 10 mm stone at the left UPJ with mild hydronephrosis. Additional smaller bilateral renal calculi are noted. No other acute findings are seen in the abdomen or pelvis. 2. Prior cholecystectomy and gastric sleeve bypass. 3. Normal appendix. 4. Mild bilateral lower lobe tree-in-bud infiltrates favoring small airway infection, right greater than left, with nonspecific right middle lobe consolidation favoring pneumonia over pulmonary parenchymal scarring. Final Dictated by: Alex Hawkins MD Dictated DT/TM: 02/23/24 5:24 Signed (Electronic Signature): Alex Hawkins MD 02/23/24 5:29 am Technologist: VANESSA Mora [facility] ED Clinical Summaryon 2023 ED Clinical Summary [facility] - Emergency Department [address] [place] [address] ED Clinical Summary PERSON INFORMATION Name: ALLAN BURR Age: 38 Years Sex: FEMALE : 1985 MRN: Acct#: Visit Reason: Nausea; Back swelling; Flank pain; RENAL COLIC ON LEFT SIDE Arrival: 02/23/2024 03:22:23 Discharge: LOS: 000 05:15 Check In: 02/23/2024 03:22:23 Checkout:02/23/2024 08:37:11 Address: [address] [place], [place] [address] PCP: MARIYA HUERTA PROVIDER INFORMATION Provider Role Assigned Unassigned Henrik Godwin DO ED Provider 02/23/2024 03:27:11 Shameka Root CHARGE AUDITOR Nurse 02/23/2024 04:06:24 Jessica RAMOS, Krys Mccall ED Nurse 02/23/2024 07:14:40 VITALS INFORMATION Vital Sign Triage Latest Temperature Tympanic Temperature Temporal Artery Pulse Rate 98 bpm 82 bpm O2 Sat 98 % 100 % Respiratory Rate 16 br/min 12 br/min Blood Pressure /82 mmHg /82 mmHg MEDICAL INFORMATION Medications Given: Medication Dose Route Sodium Chloride 0.9% intravenous solution (Normal Saline Bolus 500mL) 500 mL IV ketorolac 30 mg IV Push HYDROmorphone (Dilaudid) 0.5 mg IV Push Sodium Chloride 0.9% intravenous solution (Normal Saline Bolus 500mL) 500 mL IV ondansetron 4 mg IV Push Allergy Information: No known allergies PHYSICIAN DOCUMENTATION Patient: ALLAN BURR Age: 38 years Sex: FEMALE : 1985 Associated Diagnoses: Renal colic on left side Author: Henrik Godwin DO Basic Information Time seen: Date & time 02/23/2024 03:27:00, ambulatory unassisted past the fish bowel. History source: Patient. Arrival mode: Private vehicle, walking. History limitation: None. History of Present Illness The patient presents with This patient presents to the emergency room for evaluation of left flank pain which started more than 24 hours ago, kind of a dull discomfort kind of achy kind of thing she did not think much of it, got worse during the night tonight, pretty intense she took 4 ibuprofen at home without relief of discomfort states she is not , has not had any vomiting, she has been nauseated. She states that she spontaneously passed her previous kidney stone, does not have a urologist, her family doctor is Dr. Huerta. Otherwise she denies any fevers sore throat upper respiratory illness cough congestion difficulty breathing chest pain she denies any states she is on control, denies any frequency urgency dysuria, states the discomfort is as pretty intense, has some motion variation but also discomfort just when she is not moving. She states she is employed, she works at [employer]. On exam she is pleasant alert and oriented, seen in presence of her , room #6, she appears uncomfortable, with discomfort to the left flank area there is no rash present there, lungs are clear to nontachypneic heart rate rhythm is regular no murmur, lungs are clear she has good expiratory inspiratory of ventilation, equal bilaterally, no splinting on respirations. Her abdomen is soft, nontender, extremities are nonswollen nontender, and finally her HEENT exam is normal, neurologic Malachi symmetric and intact, psychiatric evaluations relative to chief complaint. She will be medicated for pain, and a evaluation for kidney stones is underway.. Health Status Allergies: Allergic Reactions (Selected) No known allergies. Past Medical/ Family/ Social History Problem list: Active Problems (1) No Chronic Problems . Medical Decision Making Orders Launch Orders Laboratory: Test Urine 1 (Order): Urine, Stat collect, 02/23/2024 3:31 EST, Nurse collect Lipase Level (Order): Blood, Stat collect, 02/23/2024 3:30 EST, Lab Collect CMP Standard (Order): Blood, Stat collect, 02/23/2024 3:30 EST, Lab Collect CBC w/ Auto Diff (Order): Blood, Stat collect, 02/23/2024 3:30 EST, Lab Collect Urine Culture (Order): Urine, Clean Catch, 02/23/2024 3:30 EST, Stat collect, Nurse collect Urinalysis with Culture, if indicated Standard (Order): Urine, Stat collect, 02/23/2024 3:30 EST, Nurse collect Pharmacy: ketorolac (Order): 30 mg, IV Push, Once Sodium Chloride 0.9% intravenous solution 1000 mL (Order): 500 mL/hr, IV Radiology: CT Abdomen/Pelvis w/o Contrast (Order): 02/23/2024 3:30 EST Stat, left flank pain, Allow Modification Per Radiologist, Transport Mode: Wheelchair, No, Launch Orders Pharmacy: ondansetron (Order): 4 mg, IV Push, Once Dilaudid (Order): 0.5 mg, IV Push, Once. Radiology results: 10 mm stone proximal UPJ, with mild hydro on the left, discussion with urology this will not pass;. Reexamination/ Reevaluation Time: 02/23/2024 04:43:00 . Vital signs Resting comfortably, states feeling better, 0430 hours; awaiting testing results, patien ton the smart phone; 0650: Remains comfortable Course: Dr. Acevedo, for urology, patient to stay in the hospital, on the hospitalist service, may have p.o. until midnight, adequate pain medications, IV a (more content not included)... Normal [facility] ED Note - Physicianon 2023 ED Note - Physician Patient: STEVE BURR Age: 38 years Sex: FEMALE : 1985 Associated Diagnoses: Renal colic on left side Author: Henrik Godwin DO Basic Information Time seen: Date & time 02/23/2024 03:27:00, ambulatory unassisted past the fish bowel. History source: Patient. Arrival mode: Private vehicle, walking. History limitation: None. History of Present Illness The patient presents with This patient presents to the emergency room for evaluation of left flank pain which started more than 24 hours ago, kind of a dull discomfort kind of achy kind of thing she did not think much of it, got worse during the night tonight, pretty intense she took 4 ibuprofen at home without relief of discomfort states she is not , has not had any vomiting, she has been nauseated. She states that she spontaneously passed her previous kidney stone, does not have a urologist, her family doctor is Dr. Huerta. Otherwise she denies any fevers sore throat upper respiratory illness cough congestion difficulty breathing chest pain she denies any states she is on control, denies any frequency urgency dysuria, states the discomfort is as pretty intense, has some motion variation but also discomfort just when she is not moving. She states she is employed, she works at [employer]. On exam she is pleasant alert and oriented, seen in presence of her , room #6, she appears uncomfortable, with discomfort to the left flank area there is no rash present there, lungs are clear to nontachypneic heart rate rhythm is regular no murmur, lungs are clear she has good expiratory inspiratory of ventilation, equal bilaterally, no splinting on respirations. Her abdomen is soft, nontender, extremities are nonswollen nontender, and finally her HEENT exam is normal, neurologic Malachi symmetric and intact, psychiatric evaluations relative to chief complaint. She will be medicated for pain, and a evaluation for kidney stones is underway.. Health Status Allergies: Allergic Reactions (Selected) No known allergies. Past Medical/ Family/ Social History Problem list: Active Problems (1) No Chronic Problems . Medical Decision Making Orders Launch Orders Laboratory: Test Urine 1 (Order): Urine, Stat collect, 02/23/2024 3:31 EST, Nurse collect Lipase Level (Order): Blood, Stat collect, 02/23/2024 3:30 EST, Lab Collect CMP Standard (Order): Blood, Stat collect, 02/23/2024 3:30 EST, Lab Collect CBC w/ Auto Diff (Order): Blood, Stat collect, 02/23/2024 3:30 EST, Lab Collect Urine Culture (Order): Urine, Clean Catch, 02/23/2024 3:30 EST, Stat collect, Nurse collect Urinalysis with Culture, if indicated Standard (Order): Urine, Stat collect, 02/23/2024 3:30 EST, Nurse collect Pharmacy: ketorolac (Order): 30 mg, IV Push, Once Sodium Chloride 0.9% intravenous solution 1000 mL (Order): 500 mL/hr, IV Radiology: CT Abdomen/Pelvis w/o Contrast (Order): 02/23/2024 3:30 EST Stat, left flank pain, Allow Modification Per Radiologist, Transport Mode: Wheelchair, No, Launch Orders Pharmacy: ondansetron (Order): 4 mg, IV Push, Once Dilaudid (Order): 0.5 mg, IV Push, Once. Radiology results: 10 mm stone proximal UPJ, with mild hydro on the left, discussion with urology this will not pass;. Reexamination/ Reevaluation Time: 02/23/2024 04:43:00 . Vital signs Resting comfortably, states feeling better, 0430 hours; awaiting testing results, patien ton the smart phone; 0650: Remains comfortable Course: Dr. Acevedo, for urology, patient to stay in the hospital, on the hospitalist service, may have p.o. until midnight, adequate pain medications, IV antibiotics, will be evaluated on the floor, by urology, will be evaluated for stent placement and possible other procedures to remove this large stone.. Impression and Plan Diagnosis Renal colic on left side ([id number] N23, Discharge, Medical) Significant large kidney stone with obstruction Calls-Consults - Dr Acevedo: 0703 hours: On dthe hospitalist service, to OR am, iv abx pain meds. NPO after midnight, pain meds as needed, iv abx.. Plan Condition: Improved. Disposition: Admit time 02/23/2024 07:35:00, Admit to Inpatient Unit, Nav Calvillo MD. Prescriptions Patient was given the following educational materials Follow up with Counseled: Patient, Family, Regarding diagnosis, Regarding diagnostic results, Regarding treatment plan, Regarding prescription, Patient indicated understanding of instructions. [Electronically Signed on: 02/23/2024 07:53 EST] Henrik Godwin DO [Verified on: 02/23/2024 07:53 EST] Henrik Godwin Didi DO [facility] ED Note-Nursingon 02-23-2024 ED Note-Nursing Patient admitted to the floor, hospitalist to review cultures. [facility] ED Note-Nursing Patient admitted to [address] [place] [address], attending to further review the final rad report [facility] ED Patient Education Noteon 02-23-2024 ED Patient Education Note Education Materials [facility] ED Patient Summaryon 024 ED Patient Summary [facility] - Emergency Department [address] [place] [address] PATIENT DISCHARGE INSTRUCTIONS Patient Information Name: ALLAN BURR Age: 38 Years Date of : 1985 Reason For Visit: Nausea; Back swelling; Flank pain; RENAL COLIC ON LEFT SIDE Arrival Time: 02/23/2024 03:22:23 Primary Care Physician: MARIYA HUERTA Attending Physician: Nav Calvillo MD Comment: Visit Diagnosis: Diagnoses This Visit Back swelling ([id number]) Flank pain ([id number]) Nausea ([id number]) Renal colic on left side (N23) The Pharmacy at [facility] is open Wednesday through Wednesday from 9A [...] alcohol and/or drug addiction problems; contact the Mental Health & Recovery Board [facility] 02/11 Crisis Hotline -Text 4HOPE bq [phone]. If you received any narcotics, sedation, or [...] business decisions or sign any legal documents Medication Information: The exam and treatment you received today in the [facility] Emergency Department were for an urgent problem and are not intended as complete care. It is important for you to follow up with a doctor, nurse practitioner, or physician?s assistant inventory manager for ongoing care. If your symptoms become [...] so we can reach you if necessary. [facility] Emergency Department has provided you with a complete list of medications post discharge. Please inform your recruiting intern/provider of your visit and for further instruction on these medications. Any specific questions regarding your chronic medications and dosages should be discussed with your primary care physician(s) and/or pharmacist. New Medications Printed Prescriptions acetaminophen-oxycodon e (Percocet 5 mg-325 mg oral tablet) 1 tab(s) Oral (given by mouth) every 6 hours as needed as needed for pain. ICD 10 N20 for pain from kidney stone. Refills: 0. Medications to Continue That Have Not Changed Other Medications ethinyl estradiol-levonorgestr el (Amethia oral tablet) 1 tab(s) Oral (given by mouth) every day. tirzepatide (tirzepatide 7.5 mg/0.5 mL subcutaneous solution) 7.5 Milligram Subcutaneous (under the skin) every week. Visit Information Allergies: Substance Reaction Symptoms Type Comments No known allergies Drug Vital Signs: Vitals and Measurements this Visit (last charted value for your 02/23/2024 visit) Vital Signs This Visit Temperature Oral: 36.8 DegC Peripheral Pulse Rate: 82 bpm Respiratory Rate: 12 br/min Systolic Blood Pressure: 125 mmHg Diastolic Blood Pressure: 82 mmHg SpO2: 100 % Oxygen Therapy: Room air Measurements This Visit Height/Length Measured: 172.72 cm Weight Measured: 76.66 kg Weight Dosin.660 kg Body Mass Index: 25.7 kg/m2 Body Mass Index: 25.7 kg/m2 Problems List: Problem Onset Comments No Problems found Patient Education Viruses or Bacteria What?s got you sick? Antibiotics only treat bacterial infections. Viral illnesses cannot be treated with antibiotics. When an antibiotic is not prescribed, ask your healthcare professional for tips on how to relieve symptoms and feel better. Usual Cause Illness Viruses Bacteria Antibiotic Needed Cold/Runny Nose ? NO Bronchitis/Chest Cold (in otherwise healthy children and adults) ? NO Whooping Cough ? Yes Flu ? NO Strep Throat ? Yes Sore Throat (except strep) ? NO Fluid in the middle ear (otitis media with effusion) ? NO Urinary Tract Infection ? Yes Antibiotics Aren?t Always (more content not included)... Normal [facility] Extra Greenon 02-23-2024 Tube Collected Yes Invalid Interpretation Code [facility] Comment on above: Performed By: #### 1 [id number], [id number], [id number], [id number], [id number], [id number], [id number] #### [facility] (DEFAULT) [address] [place] [address] Performed By: #### 1 [id number], [id number], [id number], [id number], [id number], 1930296, [id number] ####[facility] (DEFAULT)[address] [place] [address] 94393 Lipaseon 02-23-2024 Lipase Level 43.0 IU/L Normal 22.0-51.0 [facility] Comment on above: Performed By: #### 1 [id number], [id number], [id number], [id number], [id number], 3991494, [id number] ####[facility] (DEFAULT)[address] [place] [place] [address] 11448 Nutrition Noteon 02-23-2024 Nutrition Note 38 yo female admitte d for left sided flank pain. CT of abdomen/pelvis showed 10 mm stone at the left uteropelvic junction. Pt started on IV antibiotics and IV fluids. Pt on Regular diet with NPO after midnight to see urology. No chewing/swallowing difficulties noted, no changes in appetite, 6lb weight gain noted in record since Feb 09. Pt appears mild risk at this time. Will continue to monitor weight, PO intake and labs. RDN to assist and follow up prn. [facility] Test Serum 1on Preg Serum Internal Control OK [facility] Comment on above: Performed By: #### 3 [id number] #### [facility] (DEFAULT) [address] [place] [address] 87783 Test Serum Qual Negative [facility] Comment on above: Performed By: #### 3 [id number] #### [facility] (DEFAULT) [address] [place] [address] 71908 UA w Culture if Ind Standard on 02-23-2024 Breakpoint UA [facility] Comment on above: Performed By: #### 1 [id number] #### [facility] (DEFAULT) [address] [place] [address] 85299 Color (U) Yellow [facility] Comment on above: Performed By: #### 1 [id number] #### [facility] (DEFAULT) [address] [place] [address] 96869 Culture? Not Indicated Invalid Interpretation [facility] Comment on above: Result Comment: Resu lt created by rule GL_MAGR_ADD_UA_[id number] Performed By: #### 1 [id number] #### [facility] (DEFAULT) [address] [place] [address] 74715 Glucose (U) [Mass/Vol] Negative [facility] Comment on above: Performed By: #### 1 [id number] #### [facility] (DEFAULT) [address] [place] [address] 91292 Ketones Ql (U) Negative [facility] Comment on above: Performed By: #### 1 [id number] #### [facility] (DEFAULT) [address] [place] [address] 50825 Micro? Not Indicated Invalid Interpretation Code [facility] Comment on above: Result Comment: Resu lt created by rule GL_MAGR_ADD_UA_MICRO Performed By: #### 1 [id number] #### [facility] (DEFAULT) [address] [place] [address] 00633 UA Bilirubin Negative Normal [facility] Comment on above: Performed By: #### 1 [id number] #### [facility] [facility] (DEFAULT) [address] [place] [address] UA Blood Negative Normal NEGATIVE [facility] Comment on above: Performed By: #### 1 [id number] #### [facility] (DEFAULT) [address] [place] [address] 31323 UA Clarity CLEAR Normal CLEAR [facility] Comment on above: Performed By: #### 1 [id number] #### [facility] (DEFAULT) [address] [place] [address] UA Leuk Est Negative Normal NEGATIVE [facility] Comment on above: Performed By: #### 1 [id number] #### [facility] (DEFAULT) [address] [place] [address] 40911 UA Nitrite Negative Normal NEGATIVE [facility] Comment on above: Performed By: #### 1 [id number] #### [facility] (DEFAULT) [address] [place] [address] 38882 UA pH 6.5 Normal 5-8 [facility] Comment on above: Performed By: #### 1 [id number] #### [facility] (DEFAULT) [address] [place] [address] 51948 UA Protein Negative Normal NEGATIVE [facility] Comment on above: Performed By: #### 1 [id number] #### [facility] (DEFAULT) [address] [place] [address] 04419 UA Spec Grav 1.020 Normal 1.001-1.035 [facility] Comment on above: Performed By: #### 1 [id number] #### [facility] (DEFAULT) [address] [place] [address] 25791 UA Urobilinogen 0.2 mg/dL Normal 0.2-1.0 [facility] Comment on above: Performed By: #### 1 [id number] #### [facility] (DEFAULT) [address] [place] [address] 08432 Urine Source Clean Catch Normal [facility] Comment on above: Performed By: #### 1 [id number] #### [facility] (DEFAULT) [address] [place] [address] 28398 CBC W Auto Differential pane l (Bld)on 02-22-2024 Basophils (Bld) [#/Vol] 0.04 10*3/uL Normal <0.11 [facility] Comment on above: Order Comment: Speci men Type: BLOOD SPECIMEN Ordering Facility: [facility] Address: [address] [place] [address] Performed By: #### 5 7021-8 #### [facility] CLIA [id number] [address] [place] [address] 01068 Basophils/100 WBC (Bld) 0.7 % Normal [facility] Comment on above: Order Comment: Speci men Type: BLOOD SPECIMEN Ordering Facility: [facility] Address: [address] [place] [address] Performed By: #### 5 7021-8 #### [facility] CLIA [id number] [address] [place] [address] 22192 Differential cell count method Nom (Bld) Auto Normal [facility] Comment on above: Order Comment: Speci men Type: BLOOD SPECIMEN Ordering Facility: [facility] Address: [address] [place] [address] Performed By: #### 5 7021-8 #### [facility] CLIA [id number] [address] [place] [address] 19416 Eosinophils (Bld) [#/Vol] 0.06 10*3/uL Normal <0.46 [facility] Comment on above: Order Comment: Speci men Type: BLOOD SPECIMEN Ordering Facility: [facility] Address: [address] [place] [address] Performed By: #### 5 7021-8 #### [facility] CLIA [id number] [address] [place] [address] 27947 Eosinophils/100 WBC (Bld) 1.0 % Normal [facility] Comment on above: Order Comment: Speci men Type: BLOOD SPECIMEN Ordering Facility: [facility] Address: [address] [place] [address] Performed By: #### 5 7021-8 #### [facility] CLIA [id number] [address] [place] [address] 56837 Erythrocyte distribution width (RBC) [Ratio] 13.3 % Normal 11.5-15.0 [facility] Comment on above: Order Comment: Speci men Type: BLOOD SPECIMEN Ordering Facility: [facility] Address: [address] [place] [address] Performed By: #### 5 7021-8 #### [facility] CLIA [id number] [address] [place] [address] 96922 Hematocrit (Bld) [Volume fraction] 34.4 % Low 36.0-46.0 [facility] Comment on above: Order Comment: Speci men Type: BLOOD SPECIMEN Ordering Facility: [facility] Address: [address] [place] [address] Performed By: #### 5 7021-8 #### [facility] CLIA [id number] [address] [place] [address] 35553 Hemoglobin (Bld) [Mass/Vol] 11.9 g/dL Normal 11.5-15.5 [facility] Comment on above: Order Comment: Speci men Type: BLOOD SPECIMEN Ordering Facility: [facility] Address: [address] [place] [address] 83777 Performed By: #### 5 7021-8 #### [facility] CLIA [id number] [address] [place] [address] 75050 Immature granulocytes (Bld) [#/Vol] 10*3/uL Normal <0.10 [facility] Comment on above: Order Comment: Speci men Type: BLOOD SPECIMEN Ordering Facility: [facility] Address: [address] [place] [address] Performed By: #### 5 7021-8 #### [facility] CLIA [id number] [address] [place] [address] Immature granulocytes/100 WBC (Bld) 0.3 % Normal [facility] Comment on above: Order Comment: Speci men Type: BLOOD SPECIMEN Ordering Facility: [facility] Address: [address] [place] [address] Performed By: #### 5 7021-8 #### [facility] CLIA [id number] [address] [place] [address] 17201 Lymphocytes (Bld) [#/Vol] 2.00 10*3/uL Normal 1.00-4.00 [facility] Comment on above: Order Comment: Speci men Type: BLOOD SPECIMEN Ordering Facility: [facility] Address: [address] [place] [address] Performed By: #### 5 7021-8 #### [facility] CLIA [id number] [address] [place] [address] 21403 Lymphocytes/100 WBC (Bld) 33.4 % Normal [facility] Comment on above: Order Comment: Speci men Type: BLOOD SPECIMEN Ordering Facility: [facility] Address: [address] [place] [address] Performed By: #### 5 7021-8 #### [facility] CLIA [id number] [address] [place] [address] 35447 MCH (RBC) [Entitic mass] 30.5 pg Normal 26.0-34.0 [facility] Comment on above: Order Comment: Speci men Type: BLOOD SPECIMEN Ordering Facility: [facility] Address: [address] [place] [address] Performed By: #### 5 7021-8 #### [facility] CLIA [id number] [address] [place] [address] 93920 MCHC (RBC) [Mass/Vol] 34.6 g/dL Normal 30.5-36.0 [facility] Comment on above: Order Comment: Speci men Type: BLOOD SPECIMEN Ordering Facility: [facility] Address: [address] [place] [address] Performed By: #### 5 7021-8 #### [facility] CLIA [id number] [address] [place] [address] MCV (RBC) [Entitic vol] 88.2 fL Normal 80.0-100.0 [facility] Comment on above: Order Comment: Speci men Type: BLOOD SPECIMEN Ordering Facility: [facility] Address: [address] [place] [address] Performed By: #### 5 7021-8 #### [facility] CLIA [id number] [address] [place] [address] 57206 Monocytes (Bld) [#/Vol] 0.42 10*3/uL Normal <0.87 [facility] Comment on above: Order Comment: Speci men Type: BLOOD SPECIMEN Ordering Facility: [facility] Address: [address] [place] [address] 935[address] Performed By: #### 5 7021-8 #### [facility] CLIA [id number] [address] [place] [address] 18247 Monocytes/100 WBC (Bld) 7.0 % Normal [facility] Comment on above: Order Comment: Speci men Type: BLOOD SPECIMEN Ordering Facility: [facility] Address: [address] [place] [address] 57791 Performed By: #### 5 7021-8 #### [facility] CLIA [id number] [address] [place] [address] 34228 Neutrophils (Bld) [#/Vol] 3.44 10*3/uL Normal 1.45-7.50 [facility] Comment on above: Order Comment: Speci men Type: BLOOD SPECIMEN Ordering Facility: [facility] Address: [address] [place] [address]13 Performed By: #### 5 7021-8 #### [facility] CLIA [id number] [facility] [address] Neutrophils/100 WBC (Bld) 57.6 % Normal [facility] Comment on above: Order Comment: Speci men Type: BLOOD SPECIMEN Ordering Facility: [facility] Address: [address] [place] [address] Performed By: #### 5 7021-8 #### [facility] CLIA [id number] [address] [place] [address] 81703 Nucleated RBC (Bld) [#/Vol] 10*3/uL Normal <0.01 [facility] Comment on above: Order Comment: Speci men Type: BLOOD SPECIMEN Ordering Facility: [facility] Address: [address] [place] [address] 32702 Performed By: #### 5 7021-8 #### [facility] CLIA [id number] [address] [place] [address] 34276 Nucleated RBC/100 WBC (Bld) [Ratio] 0.0 /100 WBC Normal [facility] Comment on above: Order Comment: Speci men Type: BLOOD SPECIMEN Ordering Facility: [facility] Address: [address] [place] [address] 6[address] Performed By: #### 5 7021-8 #### [facility] CLIA [id number] [address] [place] [address] 91172 Platelet mean volume (Bld) [Entitic vol] 8.6 fL Low 9.0-12.7 [facility] Comment on above: Order Comment: Speci men Type: BLOOD SPECIMEN Ordering Facility: [facility] Address: [address] [place] [address] 09269 Performed By: #### 5 7021-8 #### [facility] CLIA [id number] [address] [place] [address] 05255 Platelets (Bld) [#/Vol] 482 10*3/uL High 150-400 [facility] Comment on above: Order Comment: Speci men Type: BLOOD SPECIMEN Ordering Facility: [facility] Address: [address] [place] [address] 65385 Performed By: #### 5 7021-8 #### [facility] CLIA [id number] [address] [place] [address] RBC (Bld) [#/Vol] 3.90 10*6/uL Normal 3.90-5.20 [facility] Comment on above: Order Comment: Speci men Type: BLOOD SPECIMEN Ordering Facility: [facility] Address: [address] [place] [address] Performed By: #### 5 7021-8 #### [facility] CLIA [id number] [address] [place] [address] 34330 WBC (Bld) [#/Vol] 5.98 10*3/uL Normal 3.70-11.00 [facility] Comment on above: Order Comment: Speci men Type: BLOOD SPECIMEN Ordering Facility: [facility] Address: [address] [place] [address] Performed By: #### 5 7021-8 #### [facility] CLIA [id number] [address] [place] [address] 76848 [facility] CBC W AUTO DIFF BLDon Basophils/100 WBC (Bld) 0.7 % [facility] BASOPHILS # BLD AUTO 0.04 [facility] DIFFERENTIAL METHOD BLD Auto [facility] EOSINOPHIL # BLD AUTO 0.06 [facility] LYMPHOCYTES # BLD AUTO 2 [facility] MONOCYTES # BLD AUTO 0.42 [facility] NEUTROPHILS # BLD AUTO 3.44 [facility] NRBC # BLD AUTO <0.01 [facility] NRBC/100 WBC BLD-RTO 0 /100 WBC [facility] PLATELET # BLD AUTO 482 High N [facility] PMV BLD AUTO 8.6 fL Low 9.0 - 12.7 fL [facility] WBC # BLD AUTO 5.98 [facility] Eosinophils/100 WBC (Bld) 1 % [facility] Erythrocyte distribution width (RBC) [Ratio] 13.3 % 11.5 - 15.0 % [facility] Hematocrit (Bld) [Volume fraction] 34.4 % Low 36.0 - 46.0 % [facility] Hemoglobin (Bld) [Mass/Vol] 11.9 g/dL 11.5 - 15.5 g/dL [facility] IMM GRANULOCYTES # BLD AUTO <0.03 NINF [facility] IMM GRANULOCYTES/LEUK NFR BLD AUTO 0.3 % [facility] Interpretation and review of laboratory results Abnormal [facility] Lymphocytes/100 WBC (Bld) 33.4 % [facility] MCH (RBC) [Entitic mass] 30.5 pg 26. 0 - 34.0 pg [facility] MCHC (RBC) [Mass/Vol] 34.6 g/dL 30.5 - 36.0 g/dL [facility] MCV (RBC) [Entitic vol] 88.2 fL 80.0 - 100.0 fL [facility] Monocytes/100 WBC (Bld) 7 % N [facility] Neutrophils/100 WBC (Bld) 57.6 % [facility] RBC (Bld) [#/Vol] 3.9 10*6/uL 3.90 - 5.2 0 m/uL [facility] Specimen Type: BLOOD SPECIMEN Ordering Facility: [facility] Address: [address] [place] [address] Original Ordering Provider: TITUS GIRALDO [facility] Coding Summaryon 02-21-2024 [facility] WhafgzfpEPf8rGz+PGhlYW Q+TF8CWDSnA48apLGthS2w S7WMKWnLMyewVUSSURaSIj AueaHkWQ0yaHHoPJNp IC8+BU0kMOFaQbfzsVTdd7 C9oDP5I37iiv1dYTcifSH6 OWRbMpOwjsqad4yuoCb6SZ cuNmluOyBt YZVgrR49SAC3aC35Qu76oU McdLIju7oznLp7KwLoSWYh JUF5dUypEHlnv9TxDTZbU6 1bhLUna3K7 NOYdkCpfxSFrAcTkiGW8gE 8sACjrquftv0azgpxjTgm3 fx03dYSle9X0sUQ2K2Hhix Y5AUCjxNWo MhzbqPZOwC5hbyqik4thxj odXlZmIVYfRCg3VMp2FTLx xJxyNiKjLZ47FDP3GJFshz TmH9HcTYCs oDqbNbH6n2M9Qp4EB0GIHm mcX4UKJPUSRQnzkAA+PC90 tg81H7MsJxdaDcb8IYKhHS T1tZK7aW9o ICRgQGhvv4H2xAH6K8Byxi Bquh9gk5rgJOHtQYwuU58h dIFyr6R7EQFgvVR0MOYupI xiEuYmdM70 Oyc+UOTytSprh6RyHfprw4 ikf6sudVu8JujwQTKdrkYq tAcwSBV3y7RmIm8iYJJisE S8jTH7kT7b MmZhPqS5MGywG061GkFuvM UrIrcaI62zG8YbqRM+PHRy Ddn7OILchCweGC0yY6AzEC RpbmctbGVm lSvqSE2hIDRjhncaGXGrrW 6iIOUlR8d4InZoMcD2PSqh V3UkGEDocjvgQx69xP3bRu ClEuV5PDmb G6QruoD9OQHlsAKmMEpeGU T7Y21ds6G2KQMsKZCpVHY8 zRX8jU7yeUzytyghmQPbmZ sgdmVydGlj NDmwQHwnA982FTMmkQsuCy NvZGluZyBEYXRlOiAgMTEv MTEvMjAyNDwvdGQ+PHRkIH M9aUbaNWXw uMGtUOdgAs6dtLyvqChnTJ 2hXEUqwslwERRgvC9wHQLy tGUujLbqAN8jRHOdfzmsn4 61TiXdHTW7 FLRsbMWpT0FemW0sLiWcBU VrXTQlZ7AjmPBwGEtlI204 FTvxTgT2IOBsytApQ7UvKZ FsaWduOiB0 v3E2Dh3Ob2AiexolQ2FahO TbMjZvOzlxKNw0N8EyPgau dHI+NT75VPAhBO26WVq3NE B4bVssUAxy BNSqF9JgbM3bFeAdEQAjRB RkOyc+PHRhYmxlIHdpZHRo XCemKMAyYqKkkDveRB6xBt 9yZGVyLWNv kWnjmNKsImObq3ufCGBxBM wpUU8liMnfR9YscKM3RQGv r8q4Ri76F68iF9WlrFM+PG YpbVB1bSE3 fC5tCwXyQeV0JQxcF265Ix LjbJMqZpdsi4uas9ivwIf2 PeL8JACohhFfoHflWBT7n2 HyOy35R07t IHdpZHRoPSIxNSUiIHZhbG pbuh2itH3mQj9+PGNvbCB3 yQX1uA4pFpUwVnY7YVaxT0 49InRvcCIv Lzoaf1olu5xnwFj1TgHmQI MbuoHjhIhxFHP9m6BlEm85 H0OtgLbpf3YnHeg3qq99rT Buw8I1vOJ9 U7HyLXUwfptlpSKhsQvsKW 3wYAHuangzAFCciL7eQKQj Z6c5IzNgLlI6IMzuJ5Ifli I3OCWmfROt OUIgqQXLxX0rsozfb3hhwv flDgGbVZNpLVg8TMr9SFIm vCicPtLrQTO3XvF5VNT8gL PqkQ7vsMjd obvytM7wUdu+YVS1bQXmqX KLMY1rPtftgHK+PHRkIHN0 vNgsIUbhMSRrqR8eXBUuP0 x2BqUvIpM6 UNhrM5LunpP5WCSccOZhZH ZxtARJcX7yeikyx3epwsoe RmLpKMOkSYz5JDh5GOEmyM duOiBsZWZ0 AnL4PPX8qPVifH0dgNiicr lsiM3bTwi+QmlydGggRGF0 KJc0J2AcFaz2FQCexBqpMV 0ncGFkZGlu Kv1snOersCoyCG6qOHKagj bad522QvTuc8woXPYrnMHs WBhtAPF9A18at6A1MNYfUB XkJJT4iWU9 uB2hbNwvsrukpIWldQcpqq LhdCoaIQpxDHriS864SGZc qVblWtQyMSk4N8NoZgi2WQ EagPncRY9y sVMsDLlxOn7dhOomfUqoGL 1zZKLmmgtgt458KvOfp0rv WALsbITmCWzzDCU0R20ke7 O3HRHlUGHa GBV4oQL8eY3gmDwfzlwhaK VmdDsgdmVydGljYWwtYWxp A218VPSeaRpyQwVfsBt9L9 FtVhw8QUNf pYntEM8vjEArLSonHx0otA pfqPecBS9tHNMhqvsos279 FzUjp1kvKOTxfRLgPZjmSY K8R48eq8W2 ZNIpOEPsNUY0tMQ4tA5azH lnbjogbGVmdDsgdmVydGlj VYnxSJioD368DYKhlGkhVp BhdGllbnQg NRnkYJm2T5FqHyjxhYD+PC 59KVNoYL49vCChzFNja0kn uJr9MjDoQLRwFVQ3fHgrRN zju8IyHQDi W64taHTvk6O6HAEkyEuseM CoXzKigEO9eM4nXEdmbgmg q2fjdrqbTlpng8kwes43sR 14I23lMQkq ZHRoPSIzMCUiIHZhbGlnbj 2czI3rVs3+KWNydSC0bOV5 jE8nGOWqIcP6BSctC384Zy RvcCIvPjxj u5nux1arxJm3KcP5TGIsyn CqfHkvOQN1h4MiKx79N99d IHdpZHRoPSIyMCUiIHZhbG fbun7ucH8v Ii8+ZYLmiLA0wKM6mH6vHc ZePjN7JTzkL919MbXxdTYz JolrR14gA7KepED+PHRyPj o4UDRbrWtj AJ0qyYNiUYztPt9tFWH1Jo UaKgSyKHevJ3HrBVPjcmzx kgleaZS2JASsPCBlgI16Ee 9udDogMTBw jWSNkA6kxkpkb0dldrpuPo KxRCNiBBo3OWp9KFOocMtj RlKnMUR4ArH3MEK5tQTuxS 1hbGlnbjog oK9uQ0JaTYAzyrirTz70hM 0aSnBpCaI4UPbdMxn+QkVO BcKMPWCOJTKMFXPBV8B6I8 EsIub8UCOu bBphKC0jmKQdGVmkRc3uvF bmmAzjGQ0qPDUfxjklGMZi vD6zIVMygVSaqEsyRY5eNK Gkqbqcc484 NwOeOWE5CVIbrHLcB2NfuD 5gMtFdJHHpTEVzG2VawJKq VWpvJ499ILhlGdY8QKOnkw FlZ8SnFOJq jKylBbY9d6A8Bg1gUh1jII 0mSNj1IS56FR73mGAcw5V9 dKQ5I8LeFZYujmgvvkcvqT A4CXQwYXWo rJ28vQMwVDvhFy6sr3R0z6 93HCZtGGGcgZ30Uc1jtPgr JBYazCEHrB9inuama8kjxs ogIzAwMDAw ZIu1HHr3MEZicUxeVnAwUQ H6RwV6WLM1iLJiyS2zwHcf xedrcC7fCwo+MzkgWWVhcn W8D6BtXex3 GHEghZojHS5cwQCoFKxlMc 1xzHagzMvsNL1jNUBcawbw JIAkiK0oPPVonAGqvBkmLT 4wNTBpbjtm v302BdUxYXI2SOZbzHHzE6 KxcA1uUyQaMLCeOIUhZ8Dr gDPoVCkfX633JNveNnK3UX KpwyCkB8Oh KFOomQosXkQ8j2M1Yt7VWY 1CUSC1M6OdXth2MQYbuHdr FW2eyZQoVCcsQf1siPfxnT gjMX8fFYQw mmeoAFIztF0lRYNljBCarM omPG8uSHTdyvqkc088HiZk JWM9VYZlrVEzD4NspI3eUb AjMDAwMDAw D3UbxQErXFjiQ065YAmbPr U6ZGYyltFcO0SdDJOktZiw RtF2r4L8Xl5SREkueYD+PC 08es83J4Ae DxfkDou1ARAgPJC8cTT7hP 4oFIByLJkpz5Q7dXK0V3Zg mpXksv5yj5dxLEOjUKvsQ9 2myXMyc1P0 RZJidON9HVPbwCafYpYgsY 93Oyc+FDGrjDfya1ZaZehb b6npi0undKb2MuYrPHLqxf FsaWduPSJ0 a4MlHm48C10sFBnlYDWsZN HdGCSmGLEqiMumar3tnW0z Ii8+BUYbpBM6hAD7eO2mPh BqYwO4UWcg O549HnAceEHeSqwml8shz1 hzeSf4LcDjIZAgikFjqBql FRU9d6UtCn39V7EigZbsm4 XoXsf7pl49 uTHru3Q4kYJ5W8RtCCZywr sudLPsuWftYQ6dOXXhrtvm FKRwjZ7jVKZnS6m7VqUjOm C0APcsL2Zs cgB7HXVbeRKqSTPlqVYRpR 9vssety0urvbkdIyCwERLx CGm0OGi3KYGspPfxKvQyPD E6TfC9YTM4 aVPnwJ8cpQvtrcrdaY8oKs c+BSt0f4rznECuPC9boCJ8 LV16XI51aGOpa9Z7kUF5O2 BhZGRpbmct igtxnKD9SJCzVUOzuP05Wy 5whTloJp8wBCIxULY6WPNo cFRoZ0EhaU9kCaAbKCRcVH PlN9QkrOOr XHrsE565CAluPcV7BRBtsb UsH9CkNVKsjNhlJsP2b7F1 Bn7TDP82JZ06GF62yPIdo6 O2qEL8G6Cb NFRnbbgrrjlywUT8DYXtEX ZxdX44Vd1dySulEm5aZYPn XDV2BPMiiPIbM3NraX7aOk AjMDAwMDAw R1VokEUlYWjrG372TEecSt O1CEWrxpDqT1VlWONejOeb PmA7e2H3Cy4EKy70RD32VC 78zHIwr3E9 pXE4H2YvEURyeiljiovtzZ W1AANtULOjoG20Zo0ddKbm Xn6kHNWdWOK5OLOgoEOxN4 RuzT8jUgJl PFEqODJaX1ElmAEyWPvzT4 36OYerJvP5UKUslpEyS7Sa HRGemKofIbK7b8H0Sl5GBP wicsv7D8Fa PjwvdHI+VY27CUVbKN43nJ IcaGPkf5lxqBv8JnWxWEAr SUV2hZkjBUvzw5YfVUHvO3 8chFGxn4E1 IGN (more content not included)... [facility] Coding Summaryon 02-17-2024 Coding Summary HTMLBase 64 WznzpjfmELf5jOc+PGhlYW Q+KV8PAZAnP10irXVreC1a T0JSATcQFbltFCRBNJzBXy GkamWuHX9mqFJaACWb IC8+DF8oVRMwFkpdxKUbw7 A5gPD4X12mtk5mVPejaHO6 ZBUzXwLztrqee7qhxNe4DG cuNmluOyBt AABxcI89GIV2yK23Sv16zL WciBHtt5stxGk2KePrLLRp VRN8bIudXFcsk4WaNYXiY9 4chZNgw5O9 IXYqwWvxeSKuDkMhlRO6eP 6kNAabsbhbk0kcnmbkVdl4 sx03mVLzn7U1mLC9G4Cfjw L4QHThfJEk XmbdwBEOdR5cnisfl3mkmm cnYwGaSIIpFTo0RQy1FDDq nIisLqOnLF61OYS8IOCymy MhR0XfWEPq jDnbMxG0s6I8Yl9PK4UBLw hfA5FYYLJWIHnitSQ+PC90 of86M5DaPsoaXie7QISqIY F9vBB1tK9i OYFfJSpdq0J2aTG7T7Kchy Zjwj2eb4dkJKSyCSdkS32h vFQfy1Z0WLYjrUN0HECcgQ nrIjMauA37 Oyc+DVBonYvzk0TbUwgtn4 vnq2lksZr2LhvyMGMikaHx hAwsKQM1t6NhCz8lHTKwbZ K5mCT9xD9s RwDqMaR4SEasX059LfVwxO SqLupyR90lZ7IzzQH+PHRy Gme1OZTedNrjIC9aP8EgHO RpbmctbGVm fRsbRQ8rYGAsolivAXEqmG 7nZQTbU4t7LjNtNeM3RNda P8GbTOEqrjeyHf55uE0lSg NlWvS4ZYvz L5CydsH2PJYlmNWkOZxaTE K0X95il5X3FYNvVIGzVUF8 aAQ0wW4pcDtcdjyqbRIcfM sgdmVydGlj AJtfHKkkG150EKQbnBzaNe NvZGluZyBEYXRlOiAgMTEv MDcvMjAyNDwvdGQ+PHRkIH H4pNvfCPLp hZPfBWqjFh6fyWrmxUsyMS 6dIBAlvigfYNRqxL7vIQMl kBZhrKtpER9rNZFcsnybw9 99FvTnNEH7 FRWdkQDlR8WqgF1zAuWgOP JoAXThK4MiaKCjFTwxH451 NIwfTsQ1WANwjcKcE1RxKU FsaWduOiB0 l0E9Iw6Rt8LpmemlN4UwcX NiOvFyQoaqFRb2K6KbOmiv dHI+FZ88EJPkES11FGq0AZ B7rRypLRba DNLiZ0FqpW8pAeBlDKFwRO RkOyc+PHRhYmxlIHdpZHRo LHwgPOXcMjPuiSohSF7zVf 9yZGVyLWNv pLmqiJXuXqHsv8zpLLUhDS jtSK6rhMwzA4YgmPD3DDPv n0y0Nl19S70dY7VvwXM+PG SqdGR5yRE1 wH1oVyChGlU8UKgmS929Lt EtjOUbXfgmn8mmd0fqmCk9 WbW6YNXomnAddLtaDBB2d0 FhVe73N14c IHdpZHRoPSIxNSUiIHZhbG hgna6xlU9lEa0+PGNvbCB3 zBK0fM0hXwJcEmC2AOrmD0 49InRvcCIv Opdor3shb5cuaUf3WlKyOI AtbvVhgQsuZEK7a3FdMo15 Q8JcfLoki5YsRud6ne23uE Akz6T0dSY2 T5PlOYYplmuhzXMdqCpcYW 3rAFAucrmuMIErsB0oHFUt Z4h5UhTuQoE9WNxyZ4Cdvy Q2HIXwvUIc KGJbmSENqQ1fhojdk6xfko msXiLcSVVlXKq0OGm0OCPn jQimWwQaEWZ3HwD3QWW7lD WooW4mzSac emqvlI6eFix+NDO7bBZanC WYYC0aSpyofUA+PHRkIHN0 lJybFQmfSAEnmR9sHHTgX8 h8XqNdXgP6 MBpfB7SejjR2OVDsrRMlVC TuoMCUpP5xbkfsr8qhuldr ZtFcVGIaKEn3SLe6LOXbjB duOiBsZWZ0 MxG9NCJ1lMZunR8fdZzhzj uteV2yCyp+QmlydGggRGF0 UOv5H4QtCgl2BGVbhXeoWX 0ncGFkZGlu Pc1dcTwjlIxcTM9eDXAbdg jrb134MkIyq5pfMMFptGUi COsbNIU1Z25ml4A8NOIqRO TaCVD1xUH0 zZ7xvKkdwcdqsQUvyGpzyd LkoRayYUimTEdwI861HGCs cJbhPqZiIBt7V5TsPxu7BU FrwUhfYL3f ySWgEYegCp3kxUohjFzmZM 3hZWGpyctfd789UbGkx0go SYEdnAEqIBjzOMN8R04az8 T3FKLvWYAh LTA0zND2zE6zdPalwqdclR VmdDsgdmVydGljYWwtYWxp D288VDDhvFytYxXrgCh8G8 ShGzj3ATFc oInbQN8npMWxMTbaAl5iuI ysqGseRT0wAOQtsguek506 PuOwb2sbMQKouCKxCUwqDC G7F60ua2I1 XNFuLHIxEWZ8gNO3vA4myA lnbjogbGVmdDsgdmVydGlj AGznIAyzJ587ZZNbvPsdJx BhdGllbnQg IOekXWo8H6IuSamkcKV+PC 65CAElXS07cWYcrHCcs4vs cRw0FwQwJOPtQUF4mGsyQU erl6TsDSRz O41ovPUrl0C7LWKsaVqnfW XlLkBqkEW8lT6lRMmfcsae k1anttpzRxdrc1kigp78vT 97C78vLOso ZHRoPSIzMCUiIHZhbGlnbj 1hxN9oDi2+ZMQpbMR0tOX2 nG8oSLGzBtU4SYylT720Bk RvcCIvPjxj r7qqc8jdzUv2IaH3NDHcli GkxXvlBFS4f8SdYw67H97v IHdpZHRoPSIyMCUiIHZhbG bffh2fhA0x Ii8+UTAmsJH2uBJ3wK6mNt HpZhB2PMwnV206TbVyuODe UwqdA39nM1OilDJ+PHRyPj q1HZCymIxb LM2qzBJrAJddVe8zVPR6Ae LrRmHhWIshY0SaYISgggif xsgrjVT7FQUaFBIevB78Ya 9udDogMTBw sAMGhY5lzsnju2okqpqgCi JgIJGcMEb9WLa5EQFjuZju XcSsLGB6NeB6UYP0uKBwyP 1hbGlnbjog gM9tR4FbAGPiubaiNm95dM 0rXzOjQlF1CYrzKps+QkVO CoHJDQIGDTTCNUOGB5G8J0 WgIxd5HWIa hNduOR2isPQiNKjkNk9paM mqlNsjLG5dCMWlratnHCRt fM1zRPXusXRwdRjlKO1oTP Xkrvgaj525 IiRoPSI3MTPgwBUzQ8IjnI 1sAhQcCTWnIFDlU6WcpFEs ABllH241DNrdHcQ7TXMylp IzG7RrLXCe dRieUgD8y7P7Qt4oCy4rON 0uLOt3YS26MM11iMHvo1P8 dCW4O9WiDELbdhimsgajlK O6YEEdSYSp jJ31gVOjLMjkDn6kd0X2g0 40VXDxYFQifD59Da9ejYbt QDNrfADVwU9xtthmz4daas ogIzAwMDAw FOl2CLr1ZTPicNqdJhYaUQ X3JpH9FHY7wTHupA9jzJtu ryfcxL2rYkf+MzkgWWVhcn U1H8AvIuj8 MHNncQzhXL4yyOAkKDmlZq 3ogUrktMejAE5aIAExugxg ZZUocI4eJIPrvXTkgNmoTP 4wNTBpbjtm y180SbRzYFU1DXOtgZLgZ1 HdsT2uJqDkTWAkFXJrA9Fk sBBfLFhjI451CSbkIwT2OX WalhHfU6Jb QUSfbCfqZjV0f8U1Hq3MRG 8TBJJ6A2WmMaf5QPAraBkc KR3hxLVoBSwnGh5urHynpF xiKC5aQVJz oducMTWeiI9kGCAryQBukB vzYE5fCAEvjvgun522YdVp VCV7AKKgzEJaB7GnnS9dKy AjMDAwMDAw G6JxrQUoNYlfS960SVesMz T1UGKablUdQ6KtVIYnzYbr UkA9t8A7Fh2NnvZjcGzslm G1S9UiPtmb dHI+CV38FQYnTE94zSWhoT Ngn4kguFf6ZmPhCWHqHWK2 pJskSSupo2UpXHHkL42ksH Nvp7W6FNRi kHmsjDUbMgWgjZE7rH7zBD crmkfeh2abmqnaOjsws1zw cg02gV53H10bXVvdMYEbUL IzMCUiIHZh dHgycs5toW9hJa9+PGNvbC W0eZL7jG4mXvKjOoJ0TXlq X876WuJhtSMoZensu4fzt8 szwMf9NnDn ZYYkxfLslIsfRGY3e0NfEf 98K18uOIamXGVuMJOeCRCe BMObpHvjej9ybK0mEb2+PC 4iy3jbmo83 nN94dTZ+ZTQiBNP6rUxvNB qqOQBbvO7xWSxtCwE2MNEo CiCszR36mOIhOOcaXr3skV ldhKvyTC8m MTBwhavuk706AvIdv6rsUR CddCHbSUsfBLA6X08ix6C2 SZJuTVBiFFD1mXV7nQ7qgI lnbjogbGVm dDsgdmVydGljYWwtYWxpZ2 66SHNkbXgiEqCwbBUwB1vs dtKKQA0zYhsaxOA+PHRkIH X5tRkcLEvd XYPvnV0gYGSpY2j5ZpZuOb A1EFadK5EislO1XMDklBJc ETFbgYTPtK9rliexx9htzp ogIzAwMDAw XBp2JBe1UTFxnFaaBlTkLD O1McG8DAK3pIRfxG4ohWhe xkmftM2tDjv+RklOOjwvdG Q+PHRkIHN0 cSbcVLuqKBEyxY4aWLEgN4 s0BtLsVbN3DEmqW6LggsG9 UMDqvHSlRSZorFIXlT8iaa cus2ytojvx AwCxNROhZIt1CVk8QUIlfC uaTqDhMKH9ZdY5VAV0lYLv nK9nwIzyzojvpX2bYhu+TV JOOjwvdGQ+ STRgSLK0aNqnCEnkCVDuzY 9oVAPaL8r6TlTbQyZ3MNzf J6EhgkE4CIIikGAkHGSqpM LUhS1nuekb y0pdktylMkWhBVPjLVv5RW x0AOCokHpsLbDpIAG2UcR5 HHE7uYOusN5uiEjdynwhgC 9wOyc+UGF5 RJN6OZ59NK79I4MxGcoduL FibGU+PHRhYmxlIHdpZHRo SJqnALHnFaPjeTosAA6sEh 9yZGVyLWNv bGx (more content not included)... [facility] Progress Note - Nurseon -0 Progress Note - Nurse [id number] 1102 [id number]#1.00 [facility] [place] Telemetry Stripson Telemetry Strips [id number] 02 [id number]#1.00 [facility] [facility] BMP Standardon 02-12-2024 eGFR Non AA >60 Invalid Interpretation Code [facility] Comment on above: Performed By: #### 7 659160, [id number], [id number] #### [facility] (DEFAULT) [address] [place] [address] 17444 eGFR AA >60 Invalid Interpretation Code [facility] Comment on above: Performed By: #### 7 854295, 96082581, [id number] #### [facility] (DEFAULT) [address] [place] [address] 10683 Calcium [Mass/Vol] 7.7 mg/dL Low 8.9-10.3 [facility] Comment on above: Performed By: #### 7 849679, 99043690, [id number] #### [facility] (DEFAULT) [address] [place] [address] 27209 Chloride [Moles/Vol] 106 mmol/L Normal 101-111 [facility] Comment on above: Performed By: #### 7 114672, 07660358, [id number] #### [facility] (DEFAULT) [address] [place] [address] 68930 CO2 [Moles/Vol] 24 mmol/L Normal 21-32 [facility] Comment on above: Performed By: #### 7 708275, 85342410, [id number] #### [facility] (DEFAULT) [address] [place] [address] 08829 Creatinine [Mass/Vol] 0.57 mg/dL Low 0.60-1.30 [facility] Comment on above: Performed By: #### 7 025048, 84451376, [id number] #### [facility] (DEFAULT) [address] [place] [address] 60031 Glucose [Mass/Vol] 95.0 mg/dL Normal 74.0-118.0 [facility] Comment on above: Performed By: #### 7 305295, 16287730, [id number] #### [facility] (DEFAULT) [address] [place] [address] 22044 Potassium [Moles/Vol] 2.5 mmol/L Critically abnormal 3.6-5.1 [facility] Comment on above: Result Comment: Crit ical result K 2.5 mmol/L called to and read back by Augustus Augustine RN at 12-Feb-2024 10:12 by FAHAD. Performed By: #### 7 481196, [id number], [id number] #### [facility] (DEFAULT) [address] [place] [address] 21158 Sodium [Moles/Vol] 138.0 mmol/L Normal 136.0-144.0 [facility] Comment on above: Performed By: #### 7 569170, 72806448, [id number] #### [facility] (DEFAULT) [address] [place] [address] 33707 Urea nitrogen [Mass/Vol] 8 mg/dL Normal 8-26 [facility] Comment on above: Performed By: #### 7 510810, 67993279, [id number] #### [facility] (DEFAULT) [address] [place] [address] 35001 Anion gap [Moles/Vol] 10.5 mmol/L Normal 5.0-19.0 [facility] Comment on above: Performed By: #### 7 747583, 23689642, [id number] #### [facility] (DEFAULT) [address] [place] [address] 22080 Osmolality 274 mOsm/L Invalid Interpretation Code [facility] Comment on above: Performed By: #### 7 938519, 29830288, [id number] #### [facility] (DEFAULT) [address] [place] [address] 62756 Urea nitrogen/Creatinine [Mass ratio] 14.0 mg/mg Normal 4.6-16.2 [facility] Comment on above: Performed By: #### 7 578963, 62370068, [id number] #### [facility] (DEFAULT) [address] [place] [address] Extra [place] 02-12-2024 Tube Collected Yes Invalid Interpretation Code [facility] Comment on above: Performed By: #### 7 234969, 40978696, [id number] #### [facility] (DEFAULT) [address] [place] [address] Inpatient Patient Summaryon 02-12-2024 Inpatient Patient Summary [facility] [address] [place] [address] 16885 Patient Discharge Instructions Name: ALLAN BURR : 1985 Patient Address: [address] [place] [address] Primary Care Provider: Name: MARIYA HUERTA Phone: After you are discharged if you find you have any questions, please, call [phone] ext [phone] to speak to a nurse. The Pharmacy at [facility] is open Wednesday through Wednesday from 9A to 6P and Wednesday and Wednesday from 9A to 5P Discharge Diagnosis: 1:Hypokalemia; 2:Pneumonia involving right lung; Failure of outpatient treatment; History of gastric bypass; Hypomagnesemia; Pneumonia Prescription Information: If you have been given a prescription for narcotics, seek immediate medical attention if you have any difficulty breathing or any sudden status changes such as confusion and sleepiness. If you or anyone you know is experiencing suicidal thoughts, mental health, alcohol and/or drug addiction problems; contact the [facility] 02/11 Crisis Hotline -Text 9RNEY la [phone]. If you received any narcotics, sedation, or [...] business decisions or sign any legal documents [facility] would like to thank you for allowing us to assist you with your healthcare needs. The following includes patient education materials and information regarding your injury/illness. ALLAN BURR has been given the following list of follow-up instructions, prescriptions, and patient education materials: Follow-up Instructions With: Address: When: MARIYA HUERTA Medications During the course of your visit, your medication list was updated with the most current information. The details of those changes are reflected below: New Medications [facility]/pharmacy #[id number], [address] [place], [place] [id number], [phone] acetaminophen-dextrome thorphan (Robitussin Maximum Strength Severe Cough Plus Sore Throat 650 mg-20 mg/20 mL oral liquid) 20 Milliliter Oral (given by mouth) every 4 hours as needed as needed for cough. Refills: 0. hydrocortisone topical (hydrocortisone 0.5% topical cream) 1 yessica Topical (on the skin) 2 times per day. Refills: 0. levoFLOXacin (levoFLOXacin 750 mg oral tablet) 1 tab(s) Oral (given by mouth) every 24 hours. for 7 Days. Refills: 0. Medications That Were Updated - Follow Below Instructions Other Medications Updated: ascorbic acid (Vitamin C) 250 Milligram Oral (given by mouth) every day. Updated: ethinyl estradiol-levonorgestr el (Amethia oral tablet) 1 tab(s) Oral (given by mouth) every day. Updated: tirzepatide (tirzepatide 7.5 mg/0.5 mL subcutaneous solution) 7.5 Milligram Subcutaneous (under the skin) every week. Medications to Continue That Have Not Changed Other Medications albuterol (Albuterol (Eqv-ProAir HFA) 90 mcg/inh inhalation aerosol) 2 inh Inhale (breathe in) every 4 hours as needed wheezing. multivitamin, (Classic ) 1 tab(s) Oral (given by mouth) every day. phentermine (phentermine 37.5 mg oral tablet) TAKE 1 TABLET BY MOUTH ONCE DAILY. No Longer Take the Following Medications amoxicillin-clavulanat e (amoxicillin-clavulana te 875 mg-125 mg oral tablet) omeprazole (omeprazole 20 mg oral delayed release capsule) 1 cap(s) Oral (given by mouth) every day. It is important to always keep an active list of medications available so that you can share with other providers and manage your medications appropriately. As an additional courtesy, we are also providing you with your final active medications list that you can keep with you. acetaminophen-dextrome thorphan (Robitussin Maximum Strength Severe Cough Plus Sore Throat 650 mg-20 mg/20 mL oral liquid) 20 Milliliter Oral (given by mouth) every 4 hours as needed as needed for cough. Refills: 0. albuterol (Albuterol (Eqv-ProAir HFA) 90 mcg/inh inhalation aerosol) 2 inh Inhale (breathe in) every 4 hours as needed wheezing. ascorbic acid (Vitamin C) 250 Milligram Oral (given by mouth) every day. ethinyl estradiol-levonorgestr el (Amethia oral tablet) 1 tab(s) Oral (given by mouth) every day. hydrocortisone topical (hydrocortisone 0.5% topical cream) 1 yessica Topical (on the skin) 2 times per day. Refills: 0. levoFLOXacin (levoFLOXacin 750 mg oral tablet) 1 tab(s) Oral (given by mouth) every 24 hours. for 7 Days. Refills: 0. multivitamin, (Classic ) 1 tab(s) Oral (given by mouth) every day. phentermine (phentermine 37.5 mg oral tablet) TAKE 1 TABLET BY MOUTH ONCE DAILY. tirzepatide (tirzepatide 7.5 mg/0.5 mL subcutaneous solution) 7.5 Milligram Subcutaneous (under the skin) every week. Take (more content not included)... Normal [facility] Magnesiumon 02-12-2024 Magnesium [Mass/Vol] 1.90 mg/dL Normal 1.80-2.50 [facility] Comment on above: Performed By: #### 7 933734, 58790342, [id number] #### [facility] (DEFAULT) [address] [place] [address] Potassium Lvlon 02-12-2024 Potassium [Moles/Vol] 3.0 mmol/L Low 3.6-5.1 [facility] Comment on above: Result Comment: Pota ssium Therapy : per Augustus Performed By: #### 2 [id number] ####[facility] (DEFAULT)[address] [place] [address] .Auto Diff 1on 02-11-2024 Auto [place] % 5 % Normal 1-12 [facility] Comment on above: Performed By: #### 7 690430, 97535401, 3651107524, 9698367 ####[facility] (DEFAULT)[address] [place] [address] 19618 Baso Abs# 0.0 x10 Normal 0.0-0.2 [facility] Comment on above: Performed By: #### 7 702707, 76956949, 1505824360, 0258033 ####[facility] (DEFAULT)[address] [place] [address] 21388 Basophils/100 WBC (Bld) 0.1 % Low 0.2-2.0 [facility] Comment on above: Performed By: #### 7 539804, 19335717, 4655198755, 0848989 ####[facility] (DEFAULT)[address] [place] [address] 27117 Eos Abs# 0.0 x10 Normal 0.0-0.4 [facility] Comment on above: Performed By: #### 7 143818, 72611664, 4168167967, 2045194 ####[facility] (DEFAULT)[address] [place] [address] 12545 Eosinophils/100 WBC (Bld) 0.0 % Low 0.9-4.0 [facility] Comment on above: Performed By: #### 7 178912, 49890871, 2941184366, 7066628 ####[facility] (DEFAULT)[address] [place] [address] 65092 Lymph Abs# 0.6 x10 Low 1.3-2.9 [facility] Comment on above: Performed By: #### 7 476827, 13332249, 7925765486, 0118955 ####[facility] (DEFAULT)[address] [place] [address] 83200 Lymphocytes/100 WBC (Bld) 9 % Low 14-48 [facility] Comment on above: Performed By: #### 7 430645, 97786336, 0308153917, 9230830 ####[facility] (DEFAULT)[address] [place] [address] 98190 [place] Abs# 0.3 x10 Normal 0.0-0.8 [facility] Comment on above: Performed By: #### 7 509327, 23097156, [id number], 5500259 ####[facility] (DEFAULT)[address] [place] [address] Neut Abs# 6.1 x10 Normal 1.5-9.2 [facility] Comment on above: Performed By: #### 7 691218, 54805086, 6928150322, 1815118 ####[facility] (DEFAULT)[address] [place] [address] Neutrophils/100 WBC (Bld) 86 % Normal 44-88 [facility] Comment on above: Performed By: #### 7 621242, 84708921, 0941482713, 1200480 ####[facility] (DEFAULT)[address] [place] [address] CBC w/ Auto Diffon Erythrocyte distribution width (RBC) [Ratio] 13.1 % Normal 11.5-15.0 [facility] Comment on above: Performed By: #### 7 393751, 32321425, 2849121642, 4878374 ####[facility] (DEFAULT)[address] [place] [address] Hematocrit (Bld) [Volume fraction] 30.2 % Low 33.7-40.4 [facility] Comment on above: Performed By: #### 7 775186, 69373212, 1601397525, 0488115 ####[facility] (DEFAULT)[address] [place] [address] Hemoglobin (Bld) [Mass/Vol] 10.6 g/dL Low 11.3-15.9 [facility] Comment on above: Performed By: #### 7 957438, 44984224, 0165670608, 3318209 ####[facility] (DEFAULT)[address] [place] [address] Man Diff? Auto Invalid Interpretation Code [facility] Comment on above: Performed By: #### 7 426879, 76361935, 7578499944, 1309243 ####[facility] (DEFAULT)[address] [place] [address] MCH (RBC) [Entitic mass] 30 pg Normal 24-34 [facility] Comment on above: Performed By: #### 7 551443, 42976156, 5618209978, 0180944 ####[facility] (DEFAULT)[address] [place] [address] MCHC (RBC) [Mass/Vol] 35 g/dL Normal 26-37 [facility] Comment on above: Performed By: #### 7 508643, 56864464, 6589953763, 0032323 ####[facility] (DEFAULT)[address] [place] [address] MCV (RBC) [Entitic vol] 87 fL Normal 81-100 [facility] Comment on above: Performed By: #### 7 255524, 35111399, 7897789129, 2461956 ####[facility] (DEFAULT)[address] [place] [address] Platelet 300 x10 Normal 138-427 [facility] Comment on above: Performed By: #### 7 130339, 12389334, 4272505844, 2555676 ####[facility] (DEFAULT)[address] [place] [address] Platelet mean volume (Bld) [Entitic vol] 7.0 fL Normal 6.3-10.2 [facility] Comment on above: Performed By: #### 7 101332, 13725332, 9031932222, 4785861 ####[facility] (DEFAULT)[address] [place] [address] RBC 3.47 x10 Low 3.70-5.30 [facility] Comment on above: Performed By: #### 7 013703, 56168957, 7348497170, 3370853 ####[facility] (DEFAULT)[address] [place] [address] WBC 7.1 x10 Normal 3.5-10.5 [facility] Comment on above: Performed By: #### 7 546127, 17384161, 0028003953, 5351286 ####[facility] (DEFAULT)[address] [place] [address] CMP Standardon 02-11-2024 eGFR Non AA >60 Invalid Interpretation Code [facility] Comment on above: Performed By: #### 7 687108, 96329073, 6676026848, 2033615 ####[facility] (DEFAULT)[address] [place] [address] 44214 eGFR AA >60 Invalid Interpretation Code [facility] Comment on above: Performed By: #### 7 860401, 53186942, 6620287523, 9957942 ####[facility] (DEFAULT)[address] [place] [address] Albumin [Mass/Vol] 2.5 g/dL Low 3.5-5.0 [facility] Comment on above: Performed By: #### 7 754069, 50668629, 9151230647, 4030530 ####[facility] (DEFAULT)[address] [place] [address] Albumin/Globulin [Mass ratio] 0.7 {ratio} Low 1.4-2.6 [facility] Comment on above: Performed By: #### 7 319630, 36467138, 0623000769, 4330714 ####[facility] (DEFAULT)[address] [place] [address] 73458 Alk Phos 72 IU/L Normal 32-91 [facility] Comment on above: Performed By: #### 7 851741, 35349951, 9472744262, 9049878 ####[facility] (DEFAULT)[address] [place] [address] 81098 ALT [Catalytic activity/Vol] 28.0 U/L Normal 14.0-54.0 [facility] Comment on above: Performed By: #### 7 369857, 07312108, 7022709411, 8483923 ####[facility] (DEFAULT)[address] [place] [address] 38897 Anion gap [Moles/Vol] 11.3 mmol/L Normal 5.0-19.0 [facility] Comment on above: Performed By: #### 7 897915, 39288271, 4634308259, 9139345 ####[facility] (DEFAULT)[address] [place] [address] 42677 AST [Catalytic activity/Vol] 19 U/L Normal 15-41 [facility] Comment on above: Performed By: #### 7 733219, 75801460, 5570494954, 3092773 ####[facility] (DEFAULT)[address] [place] [address] 58012 Bili Total 0.4 mg/dL Normal 0.3-1.2 [facility] Comment on above: Performed By: #### 7 157384, 59558199, 9906564896, 9197374 ####[facility] (DEFAULT)[address] [place] [address] 79785 Calcium [Mass/Vol] 8.1 mg/dL Low 8.9-10.3 [facility] Comment on above: Performed By: #### 7 225739, 78555123, 5102621135, 0294952 ####[facility] (DEFAULT)[address] [place] [address] 49866 Chloride [Moles/Vol] 105 mmol/L Normal 101-111 [facility] Comment on above: Performed By: #### 7 231151, 05046074, 6998365592, 2435569 ####[facility] (DEFAULT)[address] [place] [address] 40906 CO2 [Moles/Vol] 24 mmol/L Normal 21-32 [facility] Comment on above: Performed By: #### 7 873755, 37866073, 0545797842, 5115333 ####[facility] (DEFAULT)[address] [place] [address] 47715 Creatinine [Mass/Vol] 0.41 mg/dL Low 0.60-1.30 [facility] Comment on above: Performed By: #### 7 231427, 18300584, 1879664019, 8053559 ####[facility] (DEFAULT)[address] [place] [address] 39758 Globulin (S) [Mass/Vol] 3.3 g/dL Normal 1.5-4.3 [facility] Comment on above: Performed By: #### 7 994312, 93253882, 4271660580, 6740328 ####[facility] (DEFAULT)[address] [place] [address] 54000 Glucose [Mass/Vol] 128.0 mg/dL High 74.0-118.0 [facility] Comment on above: Performed By: #### 7 185250, 31940419, 2824506983, 7307091 ####[facility] (DEFAULT)[address] [place] [address] 38230 Osmolality 274 mOsm/L Invalid Interpretation Code [facility] Comment on above: Performed By: #### 7 998989, 94808001, 9833970585, 2099037 ####[facility] (DEFAULT)[address] [place] [address] 75418 Potassium [Moles/Vol] 3.3 mmol/L Low 3.6-5.1 [facility] Comment on above: Performed By: #### 7 361362, 01894519, 9373761660, 6616045 ####[facility] (DEFAULT)[address] [place] [address] 57752 Protein [Mass/Vol] 5.8 g/dL Low 6.5-8.1 [facility] Comment on above: Performed By: #### 7 233416, 77226498, 5531077982, 2770137 ####[facility] (DEFAULT)[address] [place] [address] 69344 Sodium [Moles/Vol] 137.0 mmol/L Normal 136.0-144.0 [facility] Comment on above: Performed By: #### 7 790384, 84862274, 2750853543, 7605568 ####[facility] (DEFAULT)[address] [place] [address] 42068 Urea nitrogen [Mass/Vol] 9 mg/dL Normal 8-26 [facility] Comment on above: Performed By: #### 7 914914, 01920396, 9587135174, 5429041 ####[facility] (DEFAULT)[address] [place] [address] 79819 Urea nitrogen/Creatinine [Mass ratio] 21.9 mg/mg High 4.6-16.2 [facility] Comment on above: Performed By: #### 7 584436, 81888569, 6747120333, 3017600 ####[facility] (DEFAULT)[address] [place] [address] Consent Formson 02-11-2024 Consent Forms [id number]#1.0 0OTGTIFF [facility] ED Note-Nursingon 02-11-2024 ED Note-Nursing Patient admitted to the floor, hospitalist to review cultures. [facility] Magnesiumon 02-11-2024 Magnesium [Mass/Vol] 1.61 mg/dL Low 1.80-2.50 [facility] Comment on above: Performed By: #### 7 399547, 59717878, 4755889458, 0980416 ####[facility] (DEFAULT)[address] [place] [address] Nutrition Noteon 02-11-2024 Nutrition Note 38 yo female admitte d for pneumonia of rt lung and hypokalemia. Pt weight hx reviewed, no unintentional weight loss, or gain. No appetite changes, reports good, 100% at breakfast. No chewing/swallowing difficulties upon admission. No c/o n/v/d/c. Potassium is low, however improving- pt is on a potassium tab. Elevated glucose, pt is on steroids and antibiotics for pneumonia. Noted admission history note documents DM, however no DM in pt past medical hx/diagnoses. Diet order is regular, will continue regular diet, however if glucose levels stay elevated or pt is dx with DM, will recommend changing diet order to DM. Pt is low nutrition risk at this time, RDN to remain available and assist prn. [facility] Telemetry Stripson Telemetry Strips [id number]#1.0 [id number] [facility] .Auto Diff 1on 02-10-2024 Auto [place] % 6 % Normal 04-23 [facility] Comment on above: Performed By: #### 1 [id number], 4858439, 4446549, 50472286, 3399595161, 9725584, 0555065172, 3870348735 ####[facility] (DEFAULT)[address] [place] [address] 82268 Baso Abs# 0.0 x10 Normal 0.0-0.2 [facility] Comment on above: Performed By: #### 1 675048257, 6774141, 6607655, 90939379, 2066077831, 2419117, 5334482008, 4254133013 ####[facility] (DEFAULT)[address] [place] [address] 94321 Basophils/100 WBC (Bld) 0.1 % Low 0.2-2.0 [facility] Comment on above: Performed By: #### 1 580500579, 4030103, 6490528, 23411819, 3659484049, 9912368, 3021097456, 6492126989 ####[facility] (DEFAULT)[address] [place] [address] 02489 Eos Abs# 0.0 x10 Normal 0.0-0.4 [facility] Comment on above: Performed By: #### 1 055588929, 3459275, 3031706, 41551380, 5993215208, 6924611, 0898144371, 6443374594 ####[facility] (DEFAULT)[address] [place] [address] 59103 Eosinophils/100 WBC (Bld) 0.2 % Low 0.9-4.0 [facility] Comment on above: Performed By: #### 1 129327028, 4878025, 5749621, 83774835, 6748843813, 8409561, 7662514328, 4900995298 ####[facility] (DEFAULT)[address] [place] [address] 64827 Lymph Abs# 0.6 x10 Low 1.3-2.9 [facility] Comment on above: Performed By: #### 1 602618703, 0508363, 5712826, 07488167, 9159455258, 0572393, 9392459794, 9815166869 ####[facility] (DEFAULT)[address] [place] [address] 53866 Lymphocytes/100 WBC (Bld) 8 % Low 14-48 [facility] Comment on above: Performed By: #### 1 446419494, 7002793, 8015416, 53126790, 9449530705, 2317888, 5853459721, 9879460248 ####[facility] (DEFAULT)[address] [place] [address] [place] Abs# 0.5 x10 Normal 0.0-0.8 [facility] Comment on above: Performed By: #### 1 848847689, 1973729, 3295402, 00352026, 5859657133, 2507675, 3008709751, 3065087826 ####[facility] (DEFAULT)[address] [place] [address] Neut Abs# 7.0 x10 Normal 1.5-9.2 [facility] Comment on above: Performed By: #### 1 237850898, 7458396, 6367412, 01474892, 3159348276, 9446312, 7929910538, 6432533590 ####[facility] (DEFAULT)[address] [place] [address] Neutrophils/100 WBC (Bld) 86 % Normal 44-88 [facility] Comment on above: Performed By: #### 1 341734416, 5839399, 2082946, 93753598, 1053238153, 5456140, 4198096472, 3933511353 ####[facility] (DEFAULT)[address] [place] [address] .QC SARS-CoV-2 (COVID-19)/Fl u/RSV (GeneXpert)on 02-10-2024 Internal Control Pass [facility] Comment on above: Order Comment: Order ed by Rob.[[email or web address]] Performed By: #### 7 465939, 18071226, [id number] #### [facility] (DEFAULT) [address] [place] [address] BNP.on 02-10-2024 Internal Control Pass [facility] Comment on above: Performed By: #### 1 420273233, 3135761, 0107522, 23973140, 0251967689, 3973608, 5775014838, 7266802469 ####[facility] (DEFAULT)[address] [place] [address] Natriuretic peptide B (Bld) [Mass/Vol] 15.6 pg/mL Normal 0.0-100.0 [facility] Comment on above: Result Comment: BNP results greater than 100 pg/mL are considered abnormal and suggestive of patients with CHF. Higher BNP concentrations measured in the first 72 hours after an acute coronary syndorme are associated with an increased risk of , myocardial infarction, and CHF. Performed By: #### 1 136164713, 1121108, 2248827, 91987670, 2833895499, 5156594, 6305379364, 8951565664 ####[facility] (DEFAULT)[address] [place] [address] CBC w/ Auto Diffon Erythrocyte distribution width (RBC) [Ratio] 13.2 % Normal 11.5-15.0 [facility] Comment on above: Performed By: #### 1 996605513, 0729311, 5143306, 49519616, 7102413452, 8110420, 1265014823, 1892544458 ####[facility] (DEFAULT)[address] [place] [address] Hematocrit (Bld) [Volume fraction] 36.2 % Normal 33.7-40.4 [facility] Comment on above: Performed By: #### 1 948663243, 5462817, 2210062, 16699105, 5947910719, 2570167, 4682480001, 8223738037 ####[facility] (DEFAULT)[address] [place] [id number] Hemoglobin (Bld) [Mass/Vol] 12.5 g/dL Normal 11.3-15.9 [facility] Comment on above: Performed By: #### 1 [id number], [id number], [id number], [id number], [id number], [id number], [id number], [id number] ####[facility] (DEFAULT)[address] [place] [id number] Man Diff? Auto Invalid Interpretation Code [facility] Comment on above: Performed By: #### 1 [id number], 6848380, 8983880, 77378264, [id number], 4422337, [id number], [id number] ####[facility] (DEFAULT)[address] [place] [address] MCH (RBC) [Entitic mass] 30 pg Normal 24-34 [facility] Comment on above: Performed By: #### 1 [id number], 6808153, 5061415, 92675518, 3930606273, 5167863, 5106876738, [id number] ####[facility] (DEFAULT)[address] [place] [address] MCHC (RBC) [Mass/Vol] 34 g/dL Normal 26-37 [facility] Comment on above: Performed By: #### 1 [id number], 3388474, 3728696, 00814633, 7684339296, 1983836, 4960177144, [id number] ####[facility] (DEFAULT)[address] [place], [place] [address] MCV (RBC) [Entitic vol] 87 fL Normal 81-100 [facility] Comment on above: Performed By: #### 1 [id number], 0658382, 6693771, 31493206, 6091397162, 5048431, 5847494402, [id number] ####[facility] (DEFAULT)[address] [place] [address] Platelet 333 x10 Normal 138-427 [facility] Comment on above: Performed By: #### 1 [id number], 1096718, 7133734, 55992380, 7186261629, 9891720, 5838265490, 4824453074 ####[facility] (DEFAULT)[address] [place] [address] Platelet mean volume (Bld) [Entitic vol] 6.7 fL Normal 6.3-10.2 [facility] Comment on above: Performed By: #### 1 [id number], 9957665, 2631746, 62674098, 1319311085, 1435210, 9498729418, 9487503893 ####[facility] (DEFAULT)[address] [place] [address] RBC 4.14 x10 Normal 3.70-5.30 [facility] Comment on above: Performed By: #### 1 [id number], 3407694, 6465645, 67283099, 0729098207, 9499372, 1611416436, 6436646586 ####[facility] (DEFAULT)[address] [place] [address] WBC 8.1 x10 Normal 3.5-10.5 [facility] Comment on above: Performed By: #### 1 [id number], 4936003, 4491149, 70328945, 0433636888, 3940564, 5929031318, 9108157687 ####[facility] (DEFAULT)[address] [place] [address] CMP Standardon 02-10-2024 Breakpoint Chem Normal [facility] Comment on above: Performed By: #### 1 [id number], 3466698, 7762410, 51678483, 4446356619, 4434070, 5201482834, [id number] ####[facility] (DEFAULT)[address] [place] [address] eGFR Non AA >60 Invalid Interpretation Code [facility] Comment on above: Performed By: #### 1 [id number], 1586651, 6912741, 54037761, 6879098396, 5049504, 5951886789, 2452604818 ####[facility] (DEFAULT)[address] [place] [address] eGFR AA >60 Invalid Interpretation Code [facility] Comment on above: Performed By: #### 1 [id number], 0682191, 9207652, 76450544, 6747369398, 8977125, 1761496432, 3657070210 ####[facility] (DEFAULT)[address] [place] [address] Albumin [Mass/Vol] 3.0 g/dL Low 3.5-5.0 [facility] Comment on above: Performed By: #### 1 [id number], 4994238, 9253018, 49994010, 7823443864, 1109511, 9485004974, 1847187147 ####[facility] (DEFAULT)[address] [place] [address] Albumin/Globulin [Mass ratio] 0.8 {ratio} Low 1.4-2.6 [facility] Comment on above: Performed By: #### 1 [id number], 7427240, 9512677, 36572862, 5557477611, 5085673, 8162916688, 9828990559 ####[facility] (DEFAULT)[address] [place] [address] Alk Phos 81 IU/L Normal 32-91 [facility] Comment on above: Performed By: #### 1 145069651, 3854746, 2061467, 96922485, 4383283926, 7617580, 8907903108, 9323353534 ####[facility] (DEFAULT)[address] [place] [address] ALT [Catalytic activity/Vol] 29.0 U/L Normal 14.0-54.0 [facility] Comment on above: Performed By: #### 1 419906574, 9111945, 7479832, 10030956, 7338880520, 1949765, 0980449725, 2496293470 ####[facility] (DEFAULT)[address] [place] [address] Anion gap [Moles/Vol] 13.0 mmol/L Normal 5.0-19.0 [facility] Comment on above: Performed By: #### 1 [id number], 3386580, 4072333, 41067914, 7718379003, 9645183, 4485859626, 1136459693 ####[facility] (DEFAULT)[address] [place] [address] AST [Catalytic activity/Vol] 19 U/L Normal 15-41 [facility] Comment on above: Performed By: #### 1 [id number], 6083573, 1522290, 06998788, 1938458764, 0713084, 1542121111, 7560001796 ####[facility] (DEFAULT)[address] [place] [address] 10568 Bili Total 0.3 mg/dL Normal 0.3-1.2 [facility] Comment on above: Performed By: #### 1 201147486, 1196703, 7290907, 09434785, 6601933290, 1111932, 4781838024, 1154510849 ####[facility] (DEFAULT)[address] [place] [address] 19404 Calcium [Mass/Vol] 8.4 mg/dL Low 8.9-10.3 [facility] Comment on above: Performed By: #### 1 [id number], 2940946, 7422552, 16579264, 1217117660, 9282841, 0320085744, 3204297620 ####[facility] (DEFAULT)[address] [place] [address] Chloride [Moles/Vol] 102 mmol/L Normal 101-111 [facility] Comment on above: Performed By: #### 1 [id number], 5748411, 5090275, 53424409, 5014635293, 2122383, 0463461800, 8851052635 ####[facility] (DEFAULT)[address] [place] [address] CO2 [Moles/Vol] 23 mmol/L Normal 21-32 [facility] Comment on above: Performed By: #### 1 754298710, 4976554, 8810076, 75877889, 5057234666, 7938809, 0711351212, 4229299182 ####[facility] (DEFAULT)[address] [place] [address] Creatinine [Mass/Vol] 0.58 mg/dL Low 0.60-1.30 [facility] Comment on above: Performed By: #### 1 [id number], 6527272, 1811194, 90397781, 6085201495, 3474918, 5736809828, 4176304366 ####[facility] (DEFAULT)[address] [place] [address]60 Globulin (S) [Mass/Vol] 3.7 g/dL Normal 1.5-4.3 [facility] Comment on above: Performed By: #### 1 [id number], 0442710, 8631728, 32396803, 1086970210, 2418747, 7410453526, 7421485765 ####[facility] (DEFAULT)[address] [place] [address] 91297 Glucose [Mass/Vol] 112.0 mg/dL Normal 74.0-118.0 [facility] Comment on above: Performed By: #### 1 [id number], 4260838, 9000010, 49181459, 4933603146, 9131048, 8822763265, 9501047808 ####[facility] (DEFAULT)[address] [place] [address]39[address] Osmolality 271 mOsm/L Invalid Interpretation Code [facility] Comment on above: Performed By: #### 1 [id number], 4199931, 7133116, 13861910, 1053108554, 0363997, 2621969010, 4517069281 ####[facility] (DEFAULT)[address] [place] [address] 106[address] Potassium [Moles/Vol] 3.0 mmol/L Low 3.6-5.1 [facility] Comment on above: Performed By: #### 1 129202886, 1664177, 7229984, 76541394, 9734538538, 3201028, 2844963170, 5385675638 ####[facility] (DEFAULT)[address] [place] [address] Protein [Mass/Vol] 6.7 g/dL Normal 6.5-8.1 [facility] Comment on above: Performed By: #### 1 [id number], 6117344, 5500897, 14881081, 5719159394, 4958783, 2744354613, 6929480938 ####[facility] (DEFAULT)[address] [place] [address] 54627 Sodium [Moles/Vol] 135.0 mmol/L Low 136.0-144.0 [facility] Comment on above: Performed By: #### 1 493051715, 2794354, 0351225, 49879643, 7764663287, 6005756, 9449891207, 5216143852 ####[facility] (DEFAULT)[address] [place] [address] 27527 Urea nitrogen [Mass/Vol] 14 mg/dL Normal 8-26 [facility] Comment on above: Performed By: #### 1 485366059, 3730258, 8952615, 52124397, 1050604023, 9985870, 9815076872, 6386650180 ####[facility] (DEFAULT)[address] [place] [address] 40305 Urea nitrogen/Creatinine [Mass ratio] 24.1 mg/mg High 4.6-16.2 [facility] Comment on above: Performed By: #### 1 [id number], 4615561, 3539864, 97661810, 5791151152, 9256905, 5369425263, 7445130958 ####[facility] (DEFAULT)[address] [place] [address] Talia 02-10-2024 [facility] ALLAN BURR ([id number]) 1985 F Date Time Provider Department 02/10/24 DAGOBERTO MENDEZ During your visit today, we recorded the following information about you: Dagoberto Mendez MD 02/10/2024 8:40 PM Signed I was contacted by [facility] regarding this patient, a 38 year old woman who presented to the ED with a cough- rx with amoxicillin starting Wednesday CXR with RLL pneumonia Pt mildly tachycardic but not hypoxic or tachypneic Labs otherwise unremarkable except for K of 3.0 Sending facility's hospitalist declined to accept patient- pt requesting transfer here Accepted pt to Inpatient Telemetry Adriana CARRERO with diagnosis Community Acquired Pneumonia Dagoberto Mendez MD 02/10/242039 Allergies As of Date: 02/10/2024 (No Known Allergies) Date Reviewed: 02/02/2024 Reviewed by: Leigha Lake RD - Fully Assessed Prescriptions as of 02/10/2024 - Phentermine HCl 37.5 mg tablet Take 1 tablet by mouth once daily for 90 days. - omeprazole (PRILOSEC) 20 mg capsule TAKE 1 CAPSULE ONCE DAILY - ondansetron (ZOFRAN) 4 mg tablet take 1 tablet by mouth every 6 hours as needed - MULTIVITAMIN ORAL Take by mouth. - Lactobacillus acidophilus (PROBIOTIC ORAL) Take by mouth. - multivit-min/iron/foli c/dda763 (HAIR, SKIN AND NAILS ADVANCED ORAL) Take by mouth. - calcium polycarbophil (FIBERCON ORAL) Take by mouth. - tirzepatide, weight loss (ZEPBOUND) 7.5 mg/0.5 mL pen injector Inject 7.5 mg subcutaneously one time a week. - L-NORGEST/E.ESTRADIOL- E.ESTRAD (AMETHIA ORAL) Take 1 tablet by mouth once daily. 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] 12/17/2016 Gestational diabetes mellitus in , uns*10/07/2020 Diagnosed: 02/02/2023 History of oligohydramnios [Z87.59] 10/01/2020 Diagnosed: 02/02/2023 Personal history of nicotine dependence [Z87.89*10/22/2020 Diagnosed: 02/02/2023 Personal history of urinary calculi [Z87.442] 06/27/2020 02/02/2023 Diagnosed: 02/02/2023 Streptococcus B carrier state complicating chil*10/22/2020 Diagnosed: 02/02/2023 Chronic fatigue [R53.82] 01/12/2022 Diagnosed: 02/02/2023 Anxiety [F41.9] 01/13/2022 Diagnosed: 02/02/2023 Acquired hypothyroidism [E03.9] 11/11/2022 Diagnosed: 02/02/2023 Chronic back pain [M54.9, G89.29] 01/12/2022 Diagnosed: 02/02/2023 Chronic joint pain [M25.50, G89.29] 01/12/2022 Diagnosed: 02/02/2023 Insulin resistance syndrome [E88.810] 01/13/2022 Diagnosed: 02/02/2023 Intractable chronic migraine without aura and w*11/11/2022 Diagnosed: 02/02/2023 Kidney stones [N20.0] 01/12/2022 Diagnosed: 02/02/2023 Dorsalgia, unspecified [M54.9] 07/01/2020 Diagnosed: 02/02/2023 Mild obstructive sleep apnea [G47.33] 01/13/2022 Diagnosed: 02/02/2023 Hereditary hemochromatosis (HCC) [E83.110] 01/06/2024 Encounter Status:Closed by DAGOBERTO MENDEZ MD on 02/10/24 [facility] COVID/Flu/RSV (GeneXpert)on 02-10-2024 Flu A (GXpert COVFLURSV) Negative Normal Negative [facility] Comment on above: Performed By: #### 7 [id number], [id number], [id number] #### [facility] (DEFAULT) [address] [place] [address]2100 Flu B (GXpert COVFLURSV) Negative Normal Negative [facility] Comment on above: Performed By: #### 7 [id number], 54074028, [id number] #### [facility] (DEFAULT) [address] [place] [address] 32030 RSV (GXpert COVFLURSV) Negative Normal Negative [facility] Comment on above: Performed By: #### 7 349397, 59437909, [id number] #### [facility] (DEFAULT) [address] [place] [address] SARS-CoV-2 (COVID-19) RNA ALBERTO+probe Ql (Unsp spec) Negative Normal Negative [facility] Comment on above: Result Comment: Perf ormed by PCR methodology. Performed By: #### 7 940178, 57653476, [id number] #### [facility] (DEFAULT) [address] [place] [address] CT PE Chest w/ Contraston CT PE Chest w/ Contrast EXAMINATION: CT PE Chest w/ Contrast HISTORY: Right-sided infiltrate or atelectasis, possible PE? COMPARISON: Chest x-ray, 02/10/2024. TECHNIQUE: CT angiography of the pulmonary arteries following the administration of 100 mL of Omnipaque 350 intravenous contrast. Coronal and sagittal MIP (maximum intensity projection) images were performed. Dose reduction techniques were achieved by using automated exposure control and/or adjustment of mA and/or kV according to patient size and/or use of iterative reconstruction technique. FINDINGS: No acute pulmonary embolism is seen. Cardiac size is normal. There is no pericardial effusion or coronary arterial calcification. The left vertebral artery originates off the aortic arch, a normal variant. The thoracic aorta and arch vessels are otherwise unremarkable. There is no dissection or aneurysm. The thyroid gland and esophagus appear unremarkable. An enlarged pretracheal node measures 1.4 x 1.1 cm on image 101 series 2. A second enlarged pretracheal node measures 1.7 x 1.1 cm on image 91. An enlarged subcarinal node measures 2.1 x 1.2 cm on image 83. Right hilar adenopathy measures 1.4 x 1.3 cm on image 82. These are nonspecific. There is severe consolidation with air bronchograms in the right middle lobe with additional patchy right lower lobe consolidation and milder left lower lobe infiltrate consistent with multifocal pneumonia. No pleural effusion or pneumothorax is seen. Prior cholecystectomy and gastric bypass are noted. Nonobstructing bilateral renal calculi measure up to 9 mm in the central left kidney on image 5. No acute osseous abnormality or suspicious bony lesion is seen. IMPRESSION: 1. No acute pulmonary embolism. 2. Multifocal pneumonia, most prominent in the right middle and right lower lobes. No additional acute cardiopulmonary findings. 3. Nonspecific right hilar and mediastinal adenopathy, possibly reactive. Attention at follow-up recommended. 4. Nonobstructing bilateral renal calculi. 5. Prior cholecystectomy and gastric bypass. Final Dictated by: Alex Hawkins MD Dictated DT/TM: 02/10/24 10:21 Signed (Electronic Signature): Alex Hawkins MD 02/10/24 10:27 p Technologist: VANESSA Mora [facility] ED Clinical Summaryon 2023 ED Clinical Summary [facility] - Emergency Department [address] [place], [place] [id number] ED Clinical Summary PERSON INFORMATION Name: ALLAN BURR Age: 38 Years Sex: FEMALE : 1985 MRN: Acct#: Visit Reason: Medical problem reevaluation; Cough; HYPOKALEMIA, PNEUMONIA, PNEUMONIA INVOLVING RT LUNG, FAILURE OF OUTPATIENT TREATMENT Arrival: 02/10/2024 16:24:54 Discharge: LOS: 000 07:13 Check In: 02/10/2024 16:24:54 Checkout:02/10/2024 23:37:08 Address: [address] [place] [address] PCP: MARIYA HUERTA PROVIDER INFORMATION Provider Role Assigned Unassigned Isela Jordan CHARGE AUDITOR Nurse 02/10/2024 16:38:08 Luciano Lomax MD ED Provider 02/10/2024 16:39:57 Tamika RAMOS [facility] ED Nurse 02/10/2024 18:20:04 02/10/2024 19:32:29 Zeny Tejeda RN ED Nurse 02/10/2024 19:32:30 Henrik Gdowin DO ED Provider 02/10/2024 20:07:36 VITALS INFORMATION Vital Sign Triage Latest Temperature Tympanic Temperature Temporal Artery 36.1 DegC Pulse Rate 108 bpm 104 bpm O2 Sat 99 % 98 % Respiratory Rate 16 br/min 18 br/min Blood Pressure /103 mmHg /103 mmHg MEDICAL INFORMATION Medications Given: Medication Dose Route albuterol-ipratropium (albuterol-ipratropium 2.5 mg-0.5 mg/3 mL inhalation solution) 3 mL Nebulized Inhalation methylPREDNISolone (SOLU-Medrol) 125 mg IV Push potassium bicarbonate 25 mEq Oral azithromycin 500 mg Oral cefTRIAXone 2 gm IV Piggyback Sodium Chloride 0.9% intravenous solution 1,000 mL 1000 mL Initial Volume 500 mL/hr IV Left Antecubital Fossa ibuprofen 600 mg Oral iohexol (Omnipaque 350 100 ml) 350 mg IV Push doxycycline (doxycycline hyclate) 200 mg Oral Allergy Information: No known allergies PHYSICIAN DOCUMENTATION Patient: ALLAN BURR Age: 38 years Sex: FEMALE : 1985 Associated Diagnoses: Pneumonia; Failure of outpatient treatment Author: Henrik Godwin DO Basic Information Time seen: Date & time 02/10/2024 19:30:00, Endorsed to the care of Dr Godwin by Dr Lomax, ct chest pending, spoke to the patient, she has been on abx for 5 days, sick for 8 days, cough worse, no hx underlying lung disease, no dm, no hx clots, seen in room no 6, told that she will be here for the ct, does not want to be transferred (someone mentioned that to her), do not think she needs to be transferredd, she is not tachypneic, o2 sats, ok, non-smoker, no hx heart, Pleasant, lungs basically clear, significant cough, abd soft, without lung paradox, not on oxygen, but there is a significantly large lobar infiltrate; . Additional information: Chief Complaint from Nursing Triage Note : Chief Complaint 02/10/2024 17:18 EDT Chief Complaint Patient arrives with c/o SOB, currently being treated for bronchitis was seen at [facility] and placed on antibiotics and steroids. States pain with coughing. . Health Status Allergies: Allergic Reactions (Selected) No known allergies. Medications: (Selected) Inpatient Medications Ordered Sodium Chloride 0.9% intravenous solution 1,000 mL: 1,000 mL/hr, IV Documented Medications Documented Ashlyna oral tablet: 1 tab(s), PO, Daily, take 1 tablet by mouth once daily Classic : 1 tab(s), PO, Daily, 0 Refill(s) Vitamin C: PO, Daily Vitamin D3: PO, Daily Zinc: PO, Daily amoxicillin-clavulanat e 875 mg-125 mg oral tablet: 0 Refill(s) benzonatate 100 mg oral capsule: 0 Refill(s) levothyroxine 50 mcg (0.05 mg) oral tablet: 50 mcg = 1 tab(s), PO, Daily, 90 tab(s), 0 Refill(s) phentermine 37.5 mg oral tablet: TAKE 1 TABLET BY MOUTH ONCE DAILY predniSONE 10 mg oral tablet: 0 Refill(s). Past Medical/ Family/ Social History Medical history: No active or resolved past medical history items have been selected or recorded.. Surgical history: No active procedure history items have been selected or recorded.. Family history: No family history items have been selected or recorded.. Social history: Social & Psychosocial Habits Alcohol 11/12/2022 Alcohol Use: Never 02/10/2024 Alcohol Use: Never Substance Use 11/12/2022 Substance use: Never 02/10/2024 Substance use: Never Tobacco 07/26/2020 Smoking tobacco use: Former smoker, quit more 11/12/2022 Smoking tobacco use: Former tobacco user Comment: quit 10 yrs ago - 11/12/2022 15:53 - Delphine Barros RN 02/10/2024 Smoking tobacco use: Former tobacco user Electronic Cigarette/Vaping 11/12/2022 Electronic Cigarette Use: Never 02/10/2024 Electronic Cigarette Use: Never . Problem list: Active Problems (1) No Chronic Problems . Physical Examination Vital Signs Vital Signs 02/10/2024 19:51 EDT Peripheral Pulse Rate 124 bpm HI Heart Rate Monitored 124 bpm HI Respiratory Rate 17 br/min Systolic Blood Pressure 116 mmHg Diastolic Blood Pressure 84 mmHg HI Mean Arterial Pressure, Cuff 95 mmHg SpO2 98 % 02/10/2024 18:30 EDT Peripheral Pulse Rate 113 bpm HI Heart Rate Monitored 112 bpm HI Respirato (more content not included)... Normal [facility] ED Clinical Summary [facility] ? Urgent Care [address] [place] [address] Clinical Summary PERSON INFORMATION Name: ALLAN BURR Age: 38 Years Sex: FEMALE : 1985 MRN: Acct#: Visit Reason: SOB, CHEST PAIN Arrival: 02/10/2024 16:16:40 Discharge: 02/10/2024 16:29:00 LOS: 000 00:13 Check In: 02/10/2024 16:16:40 Checkout: 02/10/2024 16:29:00 Address: [address] [place], [place] [id number] PCP: MARIYA HUERTA PROVIDER INFORMATION Provider Role Assigned Unassigned Etienne Palak SUN ED PA 02/10/2024 16:19:36 VITALS INFORMATION Vital Sign Triage Latest Temperature Tympanic Temperature Temporal Artery Pulse Rate O2 Sat Respiratory Rate Blood Pressure / / MEDICAL INFORMATION Medications Given: Allergy Information: No known allergies PHYSICIAN DOCUMENTATION Allan states she was told on Wednesday she probably has bronchitis. She comes the urgent care stating it feels like an elephant is sitting on the chest. My chest extremely heavy. I feel like I am breathing through a straw. Hoarseness, She can hardly speak. She is very short of breath, labored, unable to complete sentence. States no h/o PR, CAD, PE. To ED via DISCHARGE INFORMATION: Discharge Disposition: Home Discharge Location: [facility] ([facility] PATIENT EDUCATION INFORMATION Instructions: Follow-Up: DIAGNOSIS: Patient Understands: Comment: Normal [facility] ED Note - Physicianon 2023 ED Note - Physician Patient: STEVE BURR Age: 38 years Sex: FEMALE : 1985 Associated Diagnoses: Pneumonia; Failure of outpatient treatment Author: Henrik Godwin DO Basic Information Time seen: Date & time 02/10/2024 19:30:00, Endorsed to the care of Dr Godwin by Dr Lomax, ct chest pending, spoke to the patient, she has been on abx for 5 days, sick for 8 days, cough worse, no hx underlying lung disease, no dm, no hx clots, seen in room no 6, told that she will be here for the ct, does not want to be transferred (someone mentioned that to her), do not think she needs to be transfered, she is not tachypneic, o2 sats, ok, non-smoker, no hx heart, Pleasant, lungs basically clear, significant cough, she appears ill, but not septic, abd soft, without lung paradox, not on oxygen, but there is a significantly large lobar infiltrate right lower anterior, and it looks like posterior infiltrate right lower as well, ct is needed, in view of plain film findings.; . Additional information: Chief Complaint from Nursing Triage Note : Chief Complaint 02/10/2024 17:18 EDT Chief Complaint Patient arrives with c/o SOB, currently being treated for bronchitis was seen at [facility] and placed on antibiotics and steroids. States pain with coughing. . Health Status Allergies: Allergic Reactions (Selected) No known allergies. Medications: (Selected) Inpatient Medications Ordered Sodium Chloride 0.9% intravenous solution 1,000 mL: 1,000 mL/hr, IV Documented Medications Documented Ashlyna oral tablet: 1 tab(s), PO, Daily, take 1 tablet by mouth once daily Classic : 1 tab(s), PO, Daily, 0 Refill(s) Vitamin C: PO, Daily Vitamin D3: PO, Daily Zinc: PO, Daily amoxicillin-clavulanat e 875 mg-125 mg oral tablet: 0 Refill(s) benzonatate 100 mg oral capsule: 0 Refill(s) levothyroxine 50 mcg (0.05 mg) oral tablet: 50 mcg = 1 tab(s), PO, Daily, 90 tab(s), 0 Refill(s) phentermine 37.5 mg oral tablet: TAKE 1 TABLET BY MOUTH ONCE DAILY predniSONE 10 mg oral tablet: 0 Refill(s). Past Medical/ Family/ Social History Medical history: No active or resolved past medical history items have been selected or recorded.. Surgical history: No active procedure history items have been selected or recorded.. Family history: No family history items have been selected or recorded.. Social history: Social & Psychosocial Habits Alcohol 11/12/2022 Alcohol Use: Never 02/10/2024 Alcohol Use: Never Substance Use 11/12/2022 Substance use: Never 02/10/2024 Substance use: Never Tobacco 07/26/2020 Smoking tobacco use: Former smoker, quit more 11/12/2022 Smoking tobacco use: Former tobacco user Comment: quit 10 yrs ago - 11/12/2022 15:53 - Delphine Barros RN 02/10/2024 Smoking tobacco use: Former tobacco user Electronic Cigarette/Vaping 11/12/2022 Electronic Cigarette Use: Never 02/10/2024 Electronic Cigarette Use: Never . Problem list: Active Problems (1) No Chronic Problems . Physical Examination Vital Signs Vital Signs 02/10/2024 19:51 EDT Peripheral Pulse Rate 124 bpm HI Heart Rate Monitored 124 bpm HI Respiratory Rate 17 br/min Systolic Blood Pressure 116 mmHg Diastolic Blood Pressure 84 mmHg HI Mean Arterial Pressure, Cuff 95 mmHg SpO2 98 % 02/10/2024 18:30 EDT Peripheral Pulse Rate 113 bpm HI Heart Rate Monitored 112 bpm HI Respiratory Rate 24 br/min HI Systolic Blood Pressure 120 mmHg Diastolic Blood Pressure 67 mmHg Mean Arterial Pressure, Cuff 85 mmHg Mean Arterial Pressure Cuff 83 mmHg SpO2 99 % 02/10/2024 18:27 EDT Peripheral Pulse Rate 112 bpm HI Respiratory Rate 18 br/min Systolic Blood Pressure 123 mmHg HI Diastolic Blood Pressure 70 mmHg SpO2 99 % Oxygen Therapy Room air 02/10/2024 17:30 EDT Peripheral Pulse Rate 110 bpm HI Heart Rate Monitored 111 bpm HI Respiratory Rate 15 br/min Systolic Blood Pressure 113 mmHg Diastolic Blood Pressure 66 mmHg Mean Arterial Pressure, Cuff 82 mmHg Mean Arterial Pressure Cuff 84 mmHg SpO2 100 % 02/10/2024 17:18 EDT Temperature Temporal Artery 36.1 DegC LOW Peripheral Pulse Rate 117 bpm HI Respiratory Rate 18 br/min Systolic Blood Pressure 118 mmHg Diastolic Blood Pressure 83 mmHg HI SpO2 97 % Oxygen Therapy Room air 02/10/2024 17:02 EDT Peripheral Pulse Rate 116 bpm HI Heart Rate Monitored 115 bpm HI Respiratory Rate 21 br/min HI SpO2 100 % 02/10/2024 16:50 EDT Peripheral Pulse Rate 116 bpm HI Heart Rate Monitored 116 bpm HI Respiratory Rate 15 br/min Systolic Blood Pressure 123 mmHg HI Diastolic Blood Pressure 103 mmHg HI Mean Arterial Pressure, Cuff 110 mmHg HI Mean Arterial Pressure Cuff 108 mmHg SpO2 99 % Oxygen Therapy Room air 02/10/2024 16:48 EDT Peripheral Pulse Rate 108 bpm HI Peripheral Pulse Rate 106 bpm HI Respiratory Rate 16 br/min Respiratory Rate 20 br/min SpO2 99 % Oxygen Therapy Room air Oxygen Therapy Room air . Measurements 02/10/2024 18:27 EDT (more content not included)... Normal [facility] ED Note - Physician Allan states she was told on Wednesday she probably has bronchitis. She comes the urgent care stating it feels like an elephant is sitting on the chest. My chest extremely heavy. I feel like I am breathing through a straw. Hoarseness, She can hardly speak. She is very short of breath, labored, unable to complete sentence. States no h/o PR, CAD, PE. To ED via [Electronically Signed on: 02/10/2024 16:21 EDT] Palak Lerma [Verified on: 02/10/2024 16:21 EDT] Palak Lerma [facility] ED Note-Nursingon 02-10-2024 ED Note-Nursing Pt wheeled back to E D RM 6 with at bedside pt C/O cough, chest pain, and chills off and on. Pt symptoms started last week, pt went to PCP and was diagnosed with bronchitises, she was on steroid and antibiotic but symptoms have not improved. pt has a horsy voice, non productive dry cough. Pt has wheezing bilateral lung sounds. Pt has a three year old son at home who has pneumonia. Pt is A/Ox4 call light within reach [facility] ED Patient Education Noteon 02-10-2024 ED Patient Education Note Education Materials [facility] ED Patient Summaryon ED Patient Summary [facility] - Emergency Department [address] [place] [address] PATIENT DISCHARGE INSTRUCTIONS Patient Information Name: ALLAN BURR Age: 38 Years Date of : 1985 Reason For Visit: Medical problem reevaluation; Cough; HYPOKALEMIA, PNEUMONIA, PNEUMONIA INVOLVING RT LUNG, FAILURE OF OUTPATIENT TREATMENT Arrival Time: 02/10/2024 16:24:54 Primary Care Physician: MARIYA HUERTA Attending Physician: Nav Calvillo MD Comment: Visit Diagnosis: Diagnoses This Visit Cough ([id number]) Failure of outpatient treatment (Z78.9) Hypokalemia (E87.6) Medical problem reevaluation ([id number]) Pneumonia (J18.9) Pneumonia involving right lung (J18.9) The Pharmacy at [facility] is open Wednesday through Wednesday from 9A [...] alcohol and/or drug addiction problems; contact the [facility] 02/11 Crisis Hotline -Text 8VFPI gu [phone]. If you received any narcotics, sedation, or [...] business decisions or sign any legal documents Medication Information: The exam and treatment you received today in the [facility] Emergency Department were for an urgent problem and are not intended as complete care. It is important for you to follow up with a doctor, nurse practitioner, or physician?s assistant inventory manager for ongoing care. If your symptoms become [...] so we can reach you if necessary. [facility] Emergency Department has provided you with a complete list of medications post discharge. Please inform your recruiting intern/provider of your visit and for further instruction on these medications. Any specific questions regarding your chronic medications and dosages should be discussed with your primary care physician(s) and/or pharmacist. Medications to Continue That Have Not Changed Other Medications amoxicillin-clavulanat e (amoxicillin-clavulana te 875 mg-125 mg oral tablet) ascorbic acid (Vitamin C) Oral (given by mouth) every day. benzonatate (benzonatate 100 mg oral capsule) cholecalciferol (Vitamin D3) Oral (given by mouth) every day. ethinyl estradiol-levonorgestr el (Ashlyna oral tablet) 1 tab(s) Oral (given by mouth) every day. take 1 tablet by mouth once daily. levothyroxine (levothyroxine 50 mcg (0.05 mg) oral tablet) 1 tab(s) Oral (given by mouth) every day. multivitamin, (Classic ) 1 tab(s) Oral (given by mouth) every day. phentermine (phentermine 37.5 mg oral tablet) TAKE 1 TABLET BY MOUTH ONCE DAILY. predniSONE (predniSONE 10 mg oral tablet) zinc sulfate (Zinc) Oral (given by mouth) every day. Visit Information Allergies: Substance Reaction Symptoms Type Comments No known allergies Drug Vital Signs: Vitals and Measurements this Visit (last charted value for your 02/10/2024 visit) Vital Signs This Visit Temperature Oral: 36.1 DegC Temperature Temporal Artery: 36.1 DegC Peripheral Pulse Rate: 104 bpm Heart Rate Monitored: 104 bpm Respiratory Rate: 18 br/min Systolic Blood Pressure: 131 mmHg Diastolic Blood Pressure: 86 mmHg Mean Arterial Pressure, Cuff-Calculation: 85 mmHg Mean Arterial Pressure Cuff-Monitor: 83 mmHg SpO2: 98 % Oxygen Therapy: Room air Measurements This Visit Height/Length Measured: 175.26 cm Weight Measured: 78.02 kg Weight Dosin.020 kg Body Mass Index: 25.4 kg/m2 Body Mass Index: 25.4 kg/m2 Problems List: Problem Onset Comments No Problems found Patient Educat (more content not included)... Normal [facility] ED Patient Summary [facility] ? Urgent Care [address] [place] [address] PATIENT DISCHARGE INSTRUCTIONS Patient Information Name: ALLAN BURR Age: 38 Years Date of : 1985 Reason For Visit: SOB, CHEST PAIN Arrival Time: 02/10/2024 16:16:40 Primary Care Physician: MARIYA HUETRA Attending Physician: Palak Lerma Comment: Patient Education Medication Information: The exam and treatment you received today in the [facility] Emergency Department were for an urgent problem and are not intended as complete care. It is important for you to follow up with a doctor, nurse practitioner, or physician?s assistant inventory manager for ongoing care. If your symptoms become [...] so we can reach you if necessary. [facility] Emergency Department has provided you with a complete list of medications post discharge. Please inform your recruiting intern/provider of your visit and for further instruction on these medications. Any specific questions regarding your chronic medications and dosages should be discussed with your primary care physician(s) and/or pharmacist. Medications to Continue That Have Not Changed Other Medications ascorbic acid (Vitamin C) Oral (given by mouth) every day. cholecalciferol (Vitamin D3) Oral (given by mouth) every day. ethinyl estradiol-levonorgestr el (Ashlyna oral tablet) 1 tab(s) Oral (given by mouth) every day. take 1 tablet by mouth once daily. levothyroxine (levothyroxine 50 mcg (0.05 mg) oral tablet) 1 tab(s) Oral (given by mouth) every day. multivitamin, (Classic ) 1 tab(s) Oral (given by mouth) every day. phentermine (phentermine 37.5 mg oral tablet) TAKE 1 TABLET BY MOUTH ONCE DAILY. zinc sulfate (Zinc) Oral (given by mouth) every day. Visit Information Visit Diagnosis: Diagnoses This Visit No Visit Diagnoses Documented If you received any narcotics, sedation, or [...] business decisions or sign any legal documents Reason for Visit: Allergies: Substance Reaction Symptoms Type Comments No known allergies Drug Vital Signs: Vitals and Measurements this Visit (last charted value for your 02/10/2024 visit) No vitals and measurements documented Problems List: Problem Onset Comments No Problems found Major Tests and Procedures: The following procedures and tests were performed during your ED visit. Laboratory Radiology Cardiology Viruses or Bacteria What?s got you sick? Antibiotics only treat bacterial infections. Viral illnesses cannot be treated with antibiotics. When an antibiotic is not prescribed, ask your healthcare professional for tips on how to relieve symptoms and feel better. Usual Cause Illness Viruses Bacteria Antibiotic Needed Cold/Runny Nose NO Bronchitis/Chest Cold (in otherwise healthy children and adults) NO Whooping Cough Yes Flu NO Strep Throat Yes Sore Throat (except strep) NO Fluid in the middle ear (otitis media with effusion) NO Urinary Tract Infection Yes Antibiotics Aren?t Always the Answer www.cdc.gov/getsmart GET SMART Know When Antibiotics Work [place].S[place] Department of Health and Human Services Centers for Disease Control and Prevention December 2013 [facility] Magnesiumon 02-10-2024 Magnesium [Mass/Vol] 1.60 mg/dL Low 1.80-2.50 [facility] Comment on above: Performed By: #### 1 [id number], [id number], [id number], [id number], [id number], [id number], [id number], [id number] ####[facility] (DEFAULT)[address] [place] [address] Mycoplasma pneumoniae IgMon 02-10-2024 Internal Control Pass [facility] Comment on above: Performed By: #### 1 [id number], [id number], [id number], [id number], [id number], [id number], [id number], [id number] ####[facility] (DEFAULT)[address] [place] [address] Mycoplasma IgM Negative Normal Negative [facility] Comment on above: Performed By: #### 1 [id number], [id number], 9584507, [id number], [id number], [id number], [id number], [id number] ####[facility] (DEFAULT)[address] [place] [address] PTon 02-10-2024 INR Coag (PPP) [Relative time] 0.99 {INR} Normal 0.91-1.11 [facility] Comment on above: Performed By: #### 1 [id number], [id number], 0913040, [id number], [id number], 5998039, [id number], [id number] ####[facility] (DEFAULT)[address] [place] [address] PT 10.3 second(s) Normal 9.7-11.8 [facility] Comment on above: Performed By: #### 1 [id number], [id number], 7828332, 08181774, [id number], 2593294, [id number], [id number] ####[facility] (DEFAULT)[address] [place] [address] Sputum Cultureon 02-10-2024 Bacteria identified Respiratory culture Nom (Sput) Predominant growth of Streptococcus viridans, Niessiera species, Diptheroids. Normal respiratory rachelle No pathogens isolated <25/lpf epithelial cells 3+ White Blood Cells 3+ Gram Positive Rods 2+ Gram Positive Cocci 1+ Gram Negative Rods Normal [facility] Comment on above: Performed By: #### 7 [id number], [id number], [id number] #### [facility] (DEFAULT) [address] [place] [address] TnI HSon 02-10-2024 Troponin I High Sensitivity 4.0 pg/mL Normal <=15.0 [facility] Comment on above: Order Comment: To be done 1 hour after first Troponin HS Performed By: #### 7 [id number], [id number], [id number] #### [facility] (DEFAULT) [address] [place] [address] Troponin I High Sensitivity 4.4 pg/mL Normal <=15.0 [facility] Comment on above: Performed By: #### 1 [id number], 2417741, 9961793, 54317018, [id number], 4242344, [id number], [id number] ####[facility] (DEFAULT)[address] [place] [address] Transfer Noteon 02-10-2024 Transfer Note 194 - called [facility]; spoke with RACHEL Gomez. She's paging the hospitalist for transfer. She said that main campus is full but is calling [facility] 2034 - Dr. Mendez, [facility], called back and spoke with Dr Godwin....He's accepted this patient as a direct admit transfer 2350 - called Transfer - spoke with Beba and told her that we are cancelling the transfer. After further testing, [facility] agreed to admit this patient. [Electronically Signed on: 02/10/2024 23:58 EDT] Ashley Marin [Verified on: 02/10/2024 23:58 EDT] Ashley Marin Normal [facility] XR Chest 2 Viewson 4 XR Chest 2 Views EXAM: XR Chest 2 Vie ws HISTORY: Chest Pain COMPARISON: No prior studies available for comparison. TECHNIQUE: 2 view chest radiograph, 3 images total. FINDINGS: Support Devices/other: Small metallic clips overlie the upper abdomen.. Parenchyma: Wedge-shaped/triangula r consolidative opacity involving the right middle lobe. Additional hazy/patchy opacities involving the posterior aspect of the right lung base. Elevation of the right hemidiaphragm. Pleura: No pneumothorax. No pleural fluid. Heart/Mediastinum: Right heart border is obscured, otherwise cardiac silhouette is stable. Mild rightward mediastinal shift. Mediastinal contours are otherwise within normal limits. Bones/Soft Tissues: Intact. IMPRESSION: Wedge-shaped/triangula r consolidative opacity involving the right middle lobe. There is associated rightward mediastinal shift and elevation of the right hemidiaphragm. Findings overall favor complete collapse/atelectasis of the right middle lobe with associated volume loss. Findings could be account executive sales representative of post obstructive atelectasis secondary to mucous plugging with a reported history of recently treated bronchitis. Superimposed right middle lobe pneumonia is not excluded. Additionally there are hazy opacities also noted of the right lung base with partial silhouetting of the right hemidiaphragm. Atelectasis and/or airspace disease of the right lower lobe is an additional consideration. No prior studies were available for comparison. Dedicated CT chest could be of further benefit.. Final Dictated by: Refugio Fulton MD Dictated DT/TM: 02/10/24 6:45 Signed (Electronic Signature): Refugio Fulton MD 02/10/24 6:58 pm Technologist: YULISA Mora [facility] - Microbiology an d Antimicrobial susceptibilityon 02-07-2024 SARS-CoV-2 (COVID-19) RNA ALBERTO+probe Ql (Unsp spec) Negative [facility] No Panel Informationon 02-06 FLU A Negative [facility] FLU B Negative [facility] CBC panel Auto (Bld)on 02-02 Erythrocyte distribution width (RBC) [Ratio] 12.6 % Normal 11.5-15.0 [facility] Comment on above: Order Comment: Speci men Type: BLOOD SPECIMEN Ordering Facility: [facility] Address: [address] [place] [address] Performed By: #### 5 8410-2 #### [facility] CLIA [id number] [address] [place] [address] Hematocrit (Bld) [Volume fraction] 38.0 % Normal 36.0-46.0 [facility] Comment on above: Order Comment: Speci men Type: BLOOD SPECIMEN Ordering Facility: [facility] Address: [address] [place] [address] Performed By: #### 5 8410-2 #### [facility] CLIA [id number] [address] [place] [address] Hemoglobin (Bld) [Mass/Vol] 13.5 g/dL Normal 11.5-15.5 [facility] Comment on above: Order Comment: Speci men Type: BLOOD SPECIMEN Ordering Facility: [facility] Address: [address] [place] [address] Performed By: #### 5 8410-2 #### [facility] CLIA [id number] [address] [place] [address] MCH (RBC) [Entitic mass] 31.5 pg Normal 26.0-34.0 [facility] Comment on above: Order Comment: Speci men Type: BLOOD SPECIMEN Ordering Facility: [facility] Address: [address] [place] [address] Performed By: #### 5 8410-2 #### [facility] CLIA [id number] [address] [place] [address] MCHC (RBC) [Mass/Vol] 35.5 g/dL Normal 30.5-36.0 [facility] Comment on above: Order Comment: Speci men Type: BLOOD SPECIMEN Ordering Facility: [facility] Address: [address] [place] [address] Performed By: #### 5 8410-2 #### [facility] CLIA [id number] [address] [place] [address] MCV (RBC) [Entitic vol] 88.6 fL Normal 80.0-100.0 [facility] Comment on above: Order Comment: Speci men Type: BLOOD SPECIMEN Ordering Facility: [facility] Address: [address] [place] [address] Performed By: #### 5 8410-2 #### [facility] CLIA [id number] [address] [place] [address] Nucleated RBC (Bld) [#/Vol] 10*3/uL Normal <0.01 [facility] Comment on above: Order Comment: Speci men Type: BLOOD SPECIMEN Ordering Facility: [facility] Address: [facility] [place] [address] Performed By: #### 5 8410-2 #### [facility] CLIA [id number] [address] [place] [address]684 Platelet mean volume (Bld) [Entitic vol] 8.8 fL Low 9.0-12.7 [facility] Comment on above: Order Comment: Speci men Type: BLOOD SPECIMEN Ordering Facility: [facility] Address: [address] [place] [address] Performed By: #### 5 8410-2 #### [facility] CLIA [id number] [address] [place] [address]87 Platelets (Bld) [#/Vol] 230 10*3/uL Normal 150-400 [facility] Comment on above: Order Comment: Speci men Type: BLOOD SPECIMEN Ordering Facility: [facility] Address: [address] [place] [address] Performed By: #### 5 8410-2 #### [facility] CLIA [id number] [address] [place] [address] RBC (Bld) [#/Vol] 4.29 10*6/uL Normal 3.90-5.20 [facility] Comment on above: Order Comment: Speci men Type: BLOOD SPECIMEN Ordering Facility: [facility] Address: [address] [place] [address] Performed By: #### 5 8410-2 #### [facility] CLIA [id number] [address] [place] [address] 12567 WBC (Bld) [#/Vol] 5.82 10*3/uL Normal 3.70-11.00 [facility] Comment on above: Order Comment: Speci men Type: BLOOD SPECIMEN Ordering Facility: [facility] Address: [address] [place] [address] Performed By: #### 5 8410-2 #### [facility] CLIA [id number] [address] [place] [address] [facility] CBC PNL BLD AUTOon 02-02 [facility] NRBC # BLD AUTO <0.01 NINF [facility] PLATELET # BLD AUTO [address] [facility] PMV BLD AUTO 8.8 fL Low 9.0 - 12.7 fL [facility] WBC # BLD AUTO 5.82 [facility] Erythrocyte distribution width (RBC) [Ratio] 12.6 % 11.5 - 15.0 % [facility] Hematocrit (Bld) [Volume fraction] 38 % 36.0 - 46.0 % [facility] Hemoglobin (Bld) [Mass/Vol] 13.5 g/dL 11.5 - 15.5 g/dL [facility] Interpretation and review of laboratory results Abnormal [facility] MCH (RBC) [Entitic mass] 31.5 pg 26. 0 - 34.0 pg [facility] MCHC (RBC) [Mass/Vol] 35.5 g/dL 30.5 - 36.0 g/dL [facility] MCV (RBC) [Entitic vol] 88.6 fL 80.0 - 100.0 fL [facility] RBC (Bld) [#/Vol] 4.29 10*6/uL 3.90 - 5.2 0 m/uL [facility] Specimen Type: BLOOD SPECIMEN Ordering Facility: [facility] Address: [address] [place] [address] Original Ordering Provider: TITUS GIRALDO [facility] Talia 02-02-2024 CARLA Telephone (HEMTSA) ALLAN BURR ([id number]) 1985 F Date Time Provider Department 02/02/24 DEB MAZA During your visit today, we recorded the following information about you: Deb Maza RN 02/02/2024 3:51 PM Signed Please sign standing CBC order for phlebotomy. Thanks RACHEL Trammell Adarsh, MD 02/02/2024 3:53 PM Signed I signed. Thanks Allergies As of Date: 02/02/2024 (No Known Allergies) Date Reviewed: 02/02/2024 Reviewed by: Leigha Lake RD - Fully Assessed Primary Visit Diagnosis:Hereditary hemochromatosis (HCC) [E83.110] Order(s):COMPLETE BLOOD COUNT [SQCBC] Order #: [id number] STANDING Prescriptions as of 02/02/2024 - Phentermine HCl 37.5 mg tablet Take 1 tablet by mouth once daily for 90 days. - omeprazole (PRILOSEC) 20 mg capsule TAKE 1 CAPSULE ONCE DAILY - ondansetron (ZOFRAN) 4 mg tablet take 1 tablet by mouth every 6 hours as needed - MULTIVITAMIN ORAL Take by mouth. - Lactobacillus acidophilus (PROBIOTIC ORAL) Take by mouth. - multivit-min/iron/foli c/jsq224 (HAIR, SKIN AND NAILS ADVANCED ORAL) Take by mouth. - calcium polycarbophil (FIBERCON ORAL) Take by mouth. - tirzepatide, weight loss (ZEPBOUND) 7.5 mg/0.5 mL pen injector Inject 7.5 mg subcutaneously one time a week. - L-NORGEST/E.ESTRADIOL- E.ESTRAD (AMETHIA ORAL) Take 1 tablet by mouth once daily. 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] 12/17/2016 Gestational diabetes mellitus in , uns*10/07/2020 Diagnosed: 02/02/2023 History of oligohydramnios [Z87.59] 10/01/2020 Diagnosed: 02/02/2023 Personal history of nicotine dependence [Z87.89*10/22/2020 Diagnosed: 02/02/2023 Personal history of urinary calculi [Z87.442] 06/27/2020 02/02/2023 Diagnosed: 02/02/2023 Streptococcus B carrier state complicating chil*10/22/2020 Diagnosed: 02/02/2023 Chronic fatigue [R53.82] 01/12/2022 Diagnosed: 02/02/2023 Anxiety [F41.9] 01/13/2022 Diagnosed: 02/02/2023 Acquired hypothyroidism [E03.9] 11/11/2022 Diagnosed: 02/02/2023 Chronic back pain [M54.9, G89.29] 01/12/2022 Diagnosed: 02/02/2023 Chronic joint pain [M25.50, G89.29] 01/12/2022 Diagnosed: 02/02/2023 Insulin resistance syndrome [E88.810] 01/13/2022 Diagnosed: 02/02/2023 Intractable chronic migraine without aura and w*11/11/2022 Diagnosed: 02/02/2023 Kidney stones [N20.0] 01/12/2022 Diagnosed: 02/02/2023 Dorsalgia, unspecified [M54.9] 07/01/2020 Diagnosed: 02/02/2023 Mild obstructive sleep apnea [G47.33] 01/13/2022 Diagnosed: 02/02/2023 Hereditary hemochromatosis (HCC) [E83.110] 01/06/2024 Encounter Status:Closed by DEB MAZA on 02/02/24 Normal [facility] CBC W AUTO DIFF BLDon Basophils/100 WBC (Bld) 0.5 % [facility] BASOPHILS # BLD AUTO 0.03 [facility] DIFFERENTIAL METHOD BLD Auto [facility] EOSINOPHIL # BLD AUTO 0.14 [facility] LYMPHOCYTES # BLD AUTO 2.74 [facility] MONOCYTES # BLD AUTO 0.37 [facility] NEUTROPHILS # BLD AUTO 3.01 [facility] NRBC # BLD AUTO <0.01 [facility] NRBC/100 WBC BLD-RTO 0.0 /100 WBC [facility] PLATELET # BLD AUTO [address] [facility] PMV BLD AUTO 9.0 fL 9.0 - 12.7 fL [facility] WBC # BLD AUTO 6.30 [facility] Eosinophils/100 WBC (Bld) 2.2 % [facility] Erythrocyte distribution width (RBC) [Ratio] 11.8 % 11.5 - 15.0 % [facility] Hematocrit (Bld) [Volume fraction] 39.0 % 36.0 - 46.0 % [facility] Hemoglobin (Bld) [Mass/Vol] 14.1 g/dL 11.5 - 15.5 g/dL [facility] IMM GRANULOCYTES # BLD AUTO <0.03 [facility] IMM GRANULOCYTES/LEUK NFR BLD AUTO 0.2 % [facility] Interpretation and review of laboratory results Abnormal [facility] Lymphocytes/100 WBC (Bld) 43.5 % [facility] MCH (RBC) [Entitic mass] 31.3 pg 26. 0 - 34.0 pg [facility] MCHC (RBC) [Mass/Vol] 36.2 g/dL High 30.5 - 36.0 g/dL [facility] MCV (RBC) [Entitic vol] 86.5 fL 80.0 - 100.0 fL [facility] Monocytes/100 WBC (Bld) 5.9 % [facility] Neutrophils/100 WBC (Bld) 47.7 % [facility] RBC (Bld) [#/Vol] 4.51 10*6/uL 3.90 - 5.2 0 m/uL [facility] Specimen Type: BLOOD SPECIMEN [facility] [place] Address: [address] [place] [address] Original Ordering Provider: TITUS TAYLOR CLINISYNC [facility] CBC W AUTO DIFF BLDon Basophils/100 WBC (Bld) 0.6 % [facility] BASOPHILS # BLD AUTO 0.03 [facility] DIFFERENTIAL METHOD BLD Auto [facility] EOSINOPHIL # BLD AUTO 0.10 [facility] LYMPHOCYTES # BLD AUTO 2.13 [facility] MONOCYTES # BLD AUTO 0.28 [facility] NEUTROPHILS # BLD AUTO 2.65 [facility] NRBC # BLD AUTO <0.01 [facility] NRBC/100 WBC BLD-RTO 0.0 /100 WBC [facility] PLATELET # BLD AUTO [address] [facility] PMV BLD AUTO 9.0 fL 9.0 - 12.7 fL [facility] WBC # BLD AUTO 5.20 [facility] Eosinophils/100 WBC (Bld) 1.9 % [facility] Erythrocyte distribution width (RBC) [Ratio] 11.9 % 11.5 - 15.0 % [facility] Hematocrit (Bld) [Volume fraction] 40.6 % 36.0 - 46.0 % [facility] Hemoglobin (Bld) [Mass/Vol] 14.5 g/dL 11.5 - 15.5 g/dL [facility] IMM GRANULOCYTES # BLD AUTO <0.03 [facility] IMM GRANULOCYTES/LEUK NFR BLD AUTO 0.2 % [facility] Lymphocytes/100 WBC (Bld) 41.0 % [facility] MCH (RBC) [Entitic mass] 31.0 pg 26. 0 - 34.0 pg [facility] MCHC (RBC) [Mass/Vol] 35.7 g/dL 30.5 - 36.0 g/dL [facility] MCV (RBC) [Entitic vol] 86.9 fL 80.0 - 100.0 fL [facility] Monocytes/100 WBC (Bld) 5.4 % [facility] Neutrophils/100 WBC (Bld) 50.9 % [facility] RBC (Bld) [#/Vol] 4.67 10*6/uL 3.90 - 5.2 0 m/uL [facility] Specimen Type: BLOOD SPECIMEN Ordering Facility: [facility] Address: [address] [place] [address] Original Ordering Provider: [facility] CBC W AUTO DIFF BLDon Basophils/100 WBC (Bld) 0.6 % [facility] BASOPHILS # BLD AUTO 0.04 [facility] DIFFERENTIAL METHOD BLD Auto [facility] EOSINOPHIL # BLD AUTO 0.20 [facility] LYMPHOCYTES # BLD AUTO 2.62 [facility] MONOCYTES # BLD AUTO 0.40 [facility] NEUTROPHILS # BLD AUTO 3.62 [facility] NRBC # BLD AUTO <0.01 [facility] NRBC/100 WBC BLD-RTO 0.0 /100 WBC [facility] PLATELET # BLD AUTO [address] [facility] PMV BLD AUTO 9.4 fL 9.0 - 12.7 fL [facility] WBC # BLD AUTO 6.90 [facility] Eosinophils/100 WBC (Bld) 2.9 % [facility] Erythrocyte distribution width (RBC) [Ratio] 12.4 % 11.5 - 15.0 % [facility] Hematocrit (Bld) [Volume fraction] 42.6 % 36.0 - 46.0 % [facility] Hemoglobin (Bld) [Mass/Vol] 14.3 g/dL 11.5 - 15.5 g/dL [facility] IMM GRANULOCYTES # BLD AUTO <0.03 NINF [facility] IMM GRANULOCYTES/LEUK NFR BLD AUTO 0.3 % [facility] Lymphocytes/100 WBC (Bld) 38.0 % [facility] MCH (RBC) [Entitic mass] 30.6 pg 26. 0 - 34.0 pg [facility] MCHC (RBC) [Mass/Vol] 33.6 g/dL 30.5 - 36.0 g/dL [facility] MCV (RBC) [Entitic vol] 91.0 fL 80.0 - 100.0 fL [facility] Monocytes/100 WBC (Bld) 5.8 % N [facility] Neutrophils/100 WBC (Bld) 52.4 % [facility] RBC (Bld) [#/Vol] 4.68 10*6/uL 3.90 - 5.2 0 m/uL [facility] Specimen Type: BLOOD SPECIMEN Ordering Facility: [facility] Address: [address] [place] [address] Original Ordering Provider: NICOLE GIRALDO [facility] PAP ACOG PANEL 2: 30 to 65on 06-06-2021 . . Normal [facility] Comment on above: Result Comment: Perf ormed at: WB Performed By: #### C BC #### [facility] [address] [address] Monica Echevarria Age Gdln ACOG Testing 30-65 Normal [facility] Comment on above: Performed By: #### C BC #### [facility] [address] [place], [place] [address] Monica Echevarria DIAGNOSIS: Comment Normal [facility] Comment on above: Result Comment: NEGA TIVE FOR INTRAEPITHELIAL LESION OR MALIGNANCY. Performed at: WB Performed By: #### C BC #### [facility] [address] [place] [address] Monica Echevarria HPV Aptima Negative Normal Negative [facility] Comment on above: Result Comment: This nucleic acid amplification test detects fourteen high-risk HPV types (16,18,31,33,35,39,45,51,52,56,58,59,66,68) without differentiation. Performed at: =G Performed By: #### C BC #### [facility] [address] [place] [address] Monica Echevarria Methodology: Comment Normal [facility] Comment on above: Result Comment: This liquid based ThinPrep(R) pap test was screened with the use of an image guided system. Performed at: WB Performed By: #### C BC #### [facility] [address] [place] [address] Monica Kauren Note: Comment Normal [facility] Comment on above: Result Comment: The Pap smear is a screening test designed to aid in the detection of premalignant and malignant conditions of the uterine cervix. It is not a diagnostic procedure and should not be used as the sole means of detecting cervical cancer. Both false-positive and false-negative reports do occur. . Performed at: WB Performed By: #### C BC #### [facility] [address] [place] [address] Monica Echevarria Performed by: Comment Normal [facility] Comment on above: Result Comment: Van [employer] Maintenance Instructor (ASCP) Performed at: WB Performed By: #### C BC #### [facility] [address] [place] [address] Monica Echevarria Specimen adequacy: Comment Normal [facility] Comment on above: Result Comment: Sati sfactory for evaluation. Endocervical and/or squamous metaplastic cells (endocervical component) are present. Performed at: WB Performed By: #### C BC #### [facility] [address] [place] [address] Monica Echevarria VAGINITIS/VAGINOSIS DNA PROB Gerardo 06-04-2021 Emilee species Negative Normal Negative [facility] Comment on above: Performed By: #### V AGINT #### [facility] [address] [address] [address] Tianna Mercado Gardnerella vaginalis Negative Normal Negative [facility] Comment on above: Performed By: #### V AGINT #### [facility] [address] [address] [address] Tianna Mercado Trichomonas vaginalis Negative Normal Negative [facility] Comment on above: Performed By: #### V AGINT #### [facility] [address] [address] [address] Tianna Mercado XR Chest 2 Views*on [...] by Apollo Cesar on 05/19/2021 1146 Normal [facility] Application Security Developer Q - CULTURE,URINE,ROUTINEon 03-19-2021 CULTURE, URINE, ROUTINE SEE NOTE Abnormal N [facility] [employer] Comment on above: Order Comment: [employer] [facility] performed at: [employer] [facility], [address] [place] [address], [address] [place] [address], [id number], Timber Inspector: Arturo Escamilla MD [facility] Collection Date/Time: [facility] Results Received Date/Time: [facility] Reported Date/Time: Result Comment: CULT URE, URINE, ROUTINE Micro Number: [id number] Test Status: Final Specimen Source: Not given [...] [id number] #### [facility] [address] [place] [address] CBC AUTO DIFFon 10-13-2020 BASO # 0.0 103/ul Normal 0.0-0.1 [facility] Comment on above: Performed By: #### C BC #### [facility] [address] [place] [address] Monica Swathi Basophils/100 WBC (Bld) 0.3 % Normal 0.2-2.0 [facility] Comment on above: Performed By: #### C BC #### [facility] [address] [place], [place] [address] Monica Swathi EO # 0.1 103/ul Normal 0.0-0.7 [facility] Comment on above: Performed By: #### C BC #### [facility] [address] [place], [place] [id number] Monica Swathi Eosinophils/100 WBC (Bld) 1.0 % Normal 0.9-7.0 [facility] Comment on above: Performed By: #### C BC #### [facility] [address] [place] [address] Monica Swathi Erythrocyte distribution width (RBC) [Ratio] 13.4 % Normal 11.0-15.0 [facility] Comment on above: Performed By: #### C BC #### [facility] [address] [place] [address] Monica Swatih Hematocrit (Bld) [Volume fraction] 31.4 % Critically low 36.0-48.0 [facility] Comment on above: Performed By: #### C BC #### [facility] [address] [place] [address] Monica Swathi Hemoglobin (Bld) [Mass/Vol] 10.8 g/dL Critically low 12.0-16.0 [facility] Comment on above: Performed By: #### C BC #### [facility] [address] [place], [place] [id number] Monica Swathi IG # 0.05 10e3/ul Critically high 0.00-0.[address] [facility] Comment on above: Performed By: #### C BC #### [facility] [address] [place], [place] [id number] Monica Swathi IG % 0.4 % Normal 0.0-0.5 [facility] Comment on above: Performed By: #### C BC #### [facility] [address] [place] [address] Monica Swathi LYMPH # 2.8 103/ul Normal 1.2-3.8 [facility] Comment on above: Performed By: #### C BC #### [facility] [address] [place] [address] Monica Swathi Lymphocytes/100 WBC (Bld) 24.4 % Normal 20.5-60.0 [facility] Comment on above: Performed By: #### C BC #### [facility] [address] [place], [place] [id number] Monica Swathi MANUAL DIFF REQ NO Normal [facility] Comment on above: Performed By: #### C BC #### [facility] [address] [place], [place] [id number] Monicafrancisco Echevarria MCH (RBC) [Entitic mass] 30.3 pg Normal 26.7-34.0 [facility] Comment on above: Performed By: #### C BC #### [facility] [address] [place], [place] [id number] Monica Echevarria MCHC (RBC) [Mass/Vol] 34.4 g/dL Normal 29.9-35.2 [facility] Comment on above: Performed By: #### C BC #### [facility] [address] [place] [address] Monicafrancisco Echevarria MCV (RBC) [Entitic vol] 88.2 fL Normal 81.0-99.0 [facility] Comment on above: Performed By: #### C BC #### [facility] [address] [place], [place] [id number] Monica Swathi MONO # 0.8 103/ul Normal 0.3-0.8 [facility] Comment on above: Performed By: #### C BC #### [facility] [address] [place] [address] Monica Swathi Monocytes/100 WBC (Bld) 6.8 % Normal 1.7-12.0 [facility] Comment on above: Performed By: #### C BC #### [facility] [address] [place] [address] Monica Swathi NEUT # 7.7 103/ul Critically high 1.4-6.5 [facility] Comment on above: Performed By: #### C BC #### [facility] [address] [place], [place] [id number] Monica Swathi Neutrophils/100 WBC (Bld) 67.1 % Normal 43.0-75.0 [facility] Comment on above: Performed By: #### C BC #### [facility] [address] [place], [place] [id number] Monica Echevarria Platelet mean volume (Bld) [Entitic vol] 10.3 fL Normal 9.5-13.5 [facility] Comment on above: Performed By: #### C BC #### [facility] [address] [place] [address] Monica Echevarria PLT 165 103/ul Normal 150-450 [facility] Comment on above: Performed By: #### C BC #### [facility] [address] [place], [place] [id number] Monica Echevarria RBC 3.56 106/ul Critically low 4.20-5.40 [facility] Comment on above: Performed By: #### C BC #### [facility] [address] [place], [place] [id number] Monica Echevarria WBC 11.5 103/ul Critically high 4.0-11.0 [facility] Comment on above: Performed By: #### C BC #### [facility] [address] [place] [address] Monica Echevarria ASYMPTOMATIC COVID-19 ANTIGE Non 10-11-2020 EUA Statement SEE BELOW Normal [facility] Comment on above: Result Comment: This [...] sooner. Performed By: #### C BC #### [facility] [address] [place] [address] Monica Swathi SARS-CoV-2 (COVID-19) RNA ALBERTO+probe Ql (Unsp spec) Negative Normal NEGATIVE [facility] Comment on above: Result Comment: Nega tive results are presumptive. They do not preclude infection and should not be used as the sole basis for treatment decisions. Additional confirmatory testing by a molecular method should be considered. Performed By: #### C BC #### [facility] [address] [place], [place] [id number] Monica Swathi CBC AUTO DIFFon 10-11-2020 BASO # 0.0 103/ul Normal 0.0-0.1 [facility] Comment on above: Performed By: #### C BC #### [facility] [address] [place], [place] [id number] Monica Swathi Basophils/100 WBC (Bld) 0.2 % Normal 0.2-2.0 [facility] Comment on above: Performed By: #### C BC #### [facility] [address] [place], [place] [id number] Monica Swathi EO # 0.1 103/ul Normal 0.0-0.7 [facility] Comment on above: Performed By: #### C BC #### [facility] [address] [place], [place] [id number] Monica Swathi Eosinophils/100 WBC (Bld) 0.6 % Critically low 0.9-7.0 [facility] Comment on above: Performed By: #### C BC #### [facility] [address] [place], [place] [id number] Monica Swathi Erythrocyte distribution width (RBC) [Ratio] 13.6 % Normal 11.0-15.0 [facility] Comment on above: Performed By: #### C BC #### [facility] [address] [place], [place] [id number] Monica Swathi Hematocrit (Bld) [Volume fraction] 39.3 % Normal 36.0-48.0 [facility] Comment on above: Performed By: #### C BC #### [facility] [address] [place], [place] [id number] Monica Swathi Hemoglobin (Bld) [Mass/Vol] 13.6 g/dL Normal 12.0-16.0 [facility] Comment on above: Performed By: #### C BC #### [facility] [address] [place] [address] Monica Swathi IG # 0.05 10e3/ul Critically high 0.00-0.[address] [facility] Comment on above: Performed By: #### C BC #### [facility] [address] [place], [place] [id number] Monica Swathi IG % 0.5 % Normal 0.0-0.5 [facility] Comment on above: Performed By: #### C BC #### [facility] [address] [place], [place] [address] Monica Swathi LYMPH # 2.3 103/ul Normal 1.2-3.8 [facility] Comment on above: Performed By: #### C BC #### [facility] [address] [place] [address] Monica Swathi Lymphocytes/100 WBC (Bld) 24.6 % Normal 20.5-60.0 [facility] Comment on above: Performed By: #### C BC #### [facility] [address] [place] [address] Monica Swathi MANUAL DIFF REQ NO Normal [facility] Comment on above: Performed By: #### C BC #### [facility] [address] [place], [place] [id number] Monica Swathi MCH (RBC) [Entitic mass] 30.4 pg Normal 26.7-34.0 [facility] Comment on above: Performed By: #### C BC #### [facility] [address] [place] [address] Monica Swathi MCHC (RBC) [Mass/Vol] 34.6 g/dL Normal 29.9-35.2 [facility] Comment on above: Performed By: #### C BC #### [facility] [address] [place], [place] [id number] Monica Swathi MCV (RBC) [Entitic vol] 87.9 fL Normal 81.0-99.0 [facility] Comment on above: Performed By: #### C BC #### [facility] [address] [place] [address] Monica Swathi MONO # 0.7 103/ul Normal 0.3-0.8 [facility] Comment on above: Performed By: #### C BC #### [facility] [address] [place], [place] [id number] Monica Echevarria Monocytes/100 WBC (Bld) 7.8 % Normal 1.7-12.0 [facility] Comment on above: Performed By: #### C BC #### [facility] [address] [place], [place] [address] Monica Echevarria NEUT # 6.3 103/ul Normal 1.4-6.5 [facility] Comment on above: Performed By: #### C BC #### [facility] [address] [place] [address] Monica Echevarria Neutrophils/100 WBC (Bld) 66.3 % Normal 43.0-75.0 [facility] Comment on above: Performed By: #### C BC #### [facility] [address] [place] [address] Monica Echevarria Platelet mean volume (Bld) [Entitic vol] 10.2 fL Normal 9.5-13.5 [facility] Comment on above: Performed By: #### C BC #### [facility] [address] [place], [place] [id number] Monica Kauren PLT 205 103/ul Normal 150-450 [facility] Comment on above: Performed By: #### C BC #### [facility] [address] [place] [address] Monicafrancisco Kauren RBC 4.47 106/ul Normal 4.20-5.40 [facility] Comment on above: Performed By: #### C BC #### [facility] [address] [place], [place] [address] Monica Swathi WBC 9.5 103/ul Normal 4.0-11.0 [facility] Comment on above: Performed By: #### C BC #### [facility] [address] [place], [place] [id number] Monica Echevarria DRUG SCREEN RAPID (URINE)on 10-11-2020 AMP Negative Normal NEGATIVE [facility] Comment on above: Performed By: #### D RUGRPD #### [facility] [address] [place] [address] Monica Swathi BAR Negative Normal NEGATIVE [facility] Comment on above: Performed By: #### D RUGRPD #### [facility] [address] [place] [address] Monica Swathi BUP Negative Normal NEGATIVE [facility] Comment on above: Performed By: #### D RUGRPD #### [facility] [address] [place] [address] Monica Swathi BZO Negative Normal NEGATIVE [facility] Comment on above: Performed By: #### D RUGRPD #### [facility] [address] [place] [address] Monica Swathi KHANH Negative Normal NEGATIVE [facility] Comment on above: Performed By: #### D RUGRPD #### [facility] [address] [place] [address] Swathi CUT-OFFS SEE BELOW Normal [facility] Comment on above: Result Comment: AMP (Amphetamine): 500ng/mL, BAR (Barbituates): 200 ng/mL, BZO (Benzodiazepines): 150 ng/mL, BUP (Buprenorphine): 10 ng/mL, KHANH (Cocaine): 150 ng/mL, mAMP (Methamphetamine): 500 ng/mL, MTD (Methadone): 200 ng/mL, OPI (Opiates): 100 ng/mL, OXY (Oxycodone): 100 ng/mL, PCP (Phencyclidine): 25 ng/mL, PPX (Propoxyphene): 300 ng/mL, THC (Cannabinoids): 50 ng/mL, TCA (Trycyclic Antidepressants): 300 ng/mL Performed By: #### D RUGRPD #### [facility] [address] [place] [address] [facility] DR[facility] CUT HEADER DRUG CLASS TEST SYST EM CUT-OFF CONCENTRATIONS ARE FOLLOWS: Normal [facility] Comment on above: Performed By: #### D RUGRPD #### [facility] [address] [place] [address] Monica Swathi mAMP Negative Normal NEGATIVE [facility] Comment on above: Performed By: #### D RUGRPD #### [facility] [address] [id number] Monica Swathi MTD Negative Normal NEGATIVE [facility] Comment on above: Performed By: #### D RUGRPD #### [facility] [address] [place], [place] [address] Monica Swathi OPI Negative Normal NEGATIVE [facility] Comment on above: Performed By: #### D RUGRPD #### [facility] [address] [address] Monica Swathi OXY Negative Normal NEGATIVE [facility] Comment on above: Performed By: #### D RUGRPD #### [facility] [address] [place] [address] Monica Swathi PCP Negative Normal NEGATIVE [facility] Comment on above: Performed By: #### D RUGRPD #### [facility] [address] [place] [address] Monica Swathi PPX Negative Normal NEGATIVE [facility] Comment on above: Performed By: #### D RUGRPD #### [facility] [address] [place] [address] Monica Swathi TCA Negative Normal NEGATIVE [facility] Comment on above: Performed By: #### D RUGRPD #### [facility] [address] [place] [address] Monica Swathi THC Negative Normal NEGATIVE [facility] Comment on above: Performed By: #### D RUGRPD #### [facility] [address] [place] [address] Monica Swathi TYPE AND SCREENon 10-11-2020 TYPE AND SCREEN Antibody Screen NEGATIVE Blood Bank Notes completed by [facility] ABO Rh Typing O Rh Positive Blood Bank Notes completed by jan Mora [facility] [place] Comment on above: Performed By: #### C BC #### [facility] [address] [place] [address] Monica Swathi US PREG BIOPHY W NON [...] NIHARIKA FUENTES Date: 2020-10-11 09:43 Normal [facility] UA (CLEAN/CATCH) FLOORS BUFFER/MICRO I F IND.on 10-07-2020 Bilirubin Ql (U) Negative Normal NEGATIVE The [facility] Comment on above: Performed By: #### U ACSSIMON MANNINGRO #### [facility] [address] [place] [address] Monica Swathi Clarity (U) CLEAR Normal CLEAR [facility] Comment on above: Performed By: #### U ACSFELECIA MANNINGICRO #### [facility] [address] [place] [address] Monica Swathi Color (U) LT. YELLOW Normal YELLOW [facility] Comment on above: Performed By: #### U ACSFELECIA MANNINGICRO #### [facility] [address] [place] [address] Monica Swathi Glucose Ql (U) Negative Normal NEGATIVE [facility] Comment on above: Performed By: #### U ACSFELECIA MANNINGICRO #### [facility] [address] [place] [address] Monica Swathi Hemoglobin Ql (U) MODERATE Abnormal NEGATIVE The [facility] Comment on above: Performed By: #### U ACSFELECIA MANNINGICRO #### [facility] [address] [place] [address] Monica Swathi Ketones Ql (U) Negative Normal NEGATIVE [facility] Comment on above: Performed By: #### U ACSNIGEL UMICRO #### [facility] [address] [place] [address] Monica Swathi LEUKOCYTES Negative Normal NEGATIVE [facility] Comment on above: Performed By: #### U ACSSIMON MANNINGRO #### [facility] [address] [id number] Monica Swathi Nitrite Ql (U) Negative Normal NEGATIVE [facility] Comment on above: Performed By: #### U MALIA YANCEY #### [facility] [address] [id number] Monica Swathi pH (U) 6.0 [pH] Normal 5-9 [facility] Comment on above: Performed By: #### U MALIA YANCEY #### [facility] [address] [place] [address] Monica Swathi SPEC GRAVITY <=1.005 Abnormal 1.005-<=1.0 25 [facility] Comment on above: Performed By: #### MALIA ESTEBAN #### [facility] [address] [place] [address] Monica Swathi UA PROTEIN Negative Normal NEGATIVE/ TRACE [facility] Comment on above: Performed By: #### MALIA ESTEBAN #### [facility] [address] [place] [address] Monicafrancisco Echevarria UR MICRO IND INDICATED Normal [facility] Comment on above: Performed By: #### MALIA ESTEBAN #### [facility] [address] [place] [address] Monica Echevarria Urobilinogen Qn (U) 0.2 {Joaquin'U}/dL Normal 0.2 - 1. 0 [facility] Comment on above: Performed By: #### MALIA ESTEBAN #### [facility] [address] [place] [address] Monicafrancisco Echevarria URINE MICROSCOPIC ONLYon BACTERIA TRACE Abnormal NONE SEEN [facility] Comment on above: Performed By: #### MALIA ESTEBAN #### [facility] [address] [place] [address] Monica Swathi Bacteria identified Cx Nom (U) NOT INDICATED Normal [facility] Comment on above: Performed By: #### MALIA ESTEBAN #### [facility] [address] [place] [address] Monica Swathi CAST NONE SEEN Normal NONE SEEN [facility] Comment on above: Performed By: #### U ACSNIGEL, UMICRO #### [facility] [address] [place] [address] Monica Swathi Crystals LM Nom (Urine sed) NONE SEEN Normal NONE SEEN [facility] Comment on above: Performed By: #### U ACSIND, UMICRO #### [facility] [address] [place] [address] Monica Swathi Epithelial cells LM Ql (Urine sed) RARE Normal NONE SEEN /RARE [facility] Comment on above: Performed By: #### U ACSIND, UMICRO #### [facility] [address] [place] [address] Monica Swathi MUCOUS NONE SEEN Normal NONE SEEN [facility] Comment on above: Performed By: #### U ACSIND, UMICRO #### [facility] [address] [place] [address] Monica Swathi RBC 2-5 Abnormal 0-2 [facility] Comment on above: Performed By: #### U ACSNIGEL, UMICRO #### [facility] [address] [place] [address] Monica Swathi WBC NONE SEEN Normal NONE SEEN [facility] Comment on above: Performed By: #### U ACSIND, UMICRO #### [facility] [address] [place] [address] Monica Swathi US PREG BIOPHY W NON [...] NIHARIKA FUENTES Date: 2020-10-07 10:52 Normal [facility] US PREG GROWTHon 10-07-2020 US PREG GROWTH [...] NIHARIKA FUENTES Date: 2020-10-07 10:55 Normal [facility] GROUP B STREP CULTUREon 09-11 S. agalactiae Ag Ql (Unsp spec) Culture Observations: Group B Strep called to Dr Christian Cain's office 10/03/20 @[address] [place] [address] Isolate 1 Streptococcus agalactiae Moderate growth of ORGANISM 1 Streptococcus agalactiae ANTIBIOTIC M.I.C RX STATUS Benzylpenicillin <=0.06 S F Ampicillin <=0.25 S F Cefotaxime <=0.12 S F Ceftriaxone <=0.12 S F Levofloxacin 0.5 S F Inducible Clindamycin Resistance Pos POS F Erythromycin 4 R F Clindamycin <=0.25 R F Linezolid <=2 S F Vancomycin 0.5 S F Tetracycline 4 S F Normal [facility] Comment on above: Performed By: #### C BC #### [facility] [address] [place] [address] Monica Echevarria UA (CLEAN/CATCH) FLOORS BUFFER/MICRO I F IND.on 10-03-2020 Bilirubin Ql (U) Negative Normal NEGATIVE [facility] Comment on above: Performed By: #### U MICRO, UACSIND #### [facility] [address] [place] [address] Monica Swathi Clarity (U) CLEAR Normal CLEAR [facility] Comment on above: Performed By: #### U MICRO, UACSIND #### [facility] [address] [place] [address] Monica Swathi Color (U) LT. YELLOW Normal YELLOW [facility] Comment on above: Performed By: #### U MICRO, UACSIND #### [facility] [address] [place] [address] Monica Swathi Glucose Ql (U) Negative Normal NEGATIVE [facility] Comment on above: Performed By: #### U MICRO, UACSIND #### [facility] [address] [place] [address] Monica Swathi Hemoglobin Ql (U) TRACE-INTACT Abnormal NEGATIVE [facility] Comment on above: Performed By: #### U MICRO, UACSIND #### [facility] [address] [place] [address] Monica Swathi Ketones Ql (U) 15 mg/dl Abnormal NEGATIVE [facility] Comment on above: Performed By: #### U MICRO, UACSIND #### [facility] [address] [place] [address] Monica Swathi LEUKOCYTES Negative Normal NEGATIVE [facility] Comment on above: Performed By: #### U MICRO, UACSIND #### [facility] [address] [place] [address] Monica Swathi Nitrite Ql (U) Negative Normal NEGATIVE [facility] Comment on above: Performed By: #### U MICRO, UACSIND #### [facility] [address] [place] [address] Monica Swathi pH (U) 7.0 [pH] Normal 5-9 [facility] Comment on above: Performed By: #### U MICRO, UACSIND #### [facility] [address] [place] [address] Monica Swathi SPEC GRAVITY 1.015 Normal 1.005-<=1.0 25 [facility] Comment on above: Performed By: #### U MICRO, UACSIND #### [facility] [address] [place] [address] Monica Echevarria UA PROTEIN Negative Normal NEGATIVE/ TRACE [facility] Comment on above: Performed By: #### U MICRO, UACSIND #### [facility] [address] [place] [address] Monica Echevarria UR MICRO IND INDICATED Normal [facility] Comment on above: Performed By: #### U MICRO, UACSIND #### [facility] [address] [place] [address] Monica Echevarria Urobilinogen Qn (U) 0.2 {Joaquin'U}/dL Normal 0.2 - 1. 0 [facility] Comment on above: Performed By: #### U MICRO, UACSIND #### [facility] [address] [place] [address] Monica Echevarria URINE MICROSCOPIC ONLYon BACTERIA NONE SEEN Normal NONE SEEN [facility] Comment on above: Performed By: #### U MICRO, UACSIND #### [facility] [address] [place] [address] Monica Echevarria Bacteria identified Cx Nom (U) NOT INDICATED Normal [facility] Comment on above: Performed By: #### U MICRO, UACSIND #### [facility] [address] [place] [address] Monica Echevarria CAST NONE SEEN Normal NONE SEEN [facility] Comment on above: Performed By: #### U MICRO, UACSIND #### [facility] [address] [place] [address] Monicafrancisco Echevarria Crystals LM Nom (Urine sed) NONE SEEN Normal NONE SEEN [facility] Comment on above: Performed By: #### U MICRO, UACSIND #### [facility] [address] [place] [address] Monica Swathi Epithelial cells LM Ql (Urine sed) FEW Abnormal NONE SEEN /RARE [facility] Comment on above: Performed By: #### U MICRO, UACSIND #### [facility] [address] [address] Moinca Swathi MUCOUS NONE SEEN Normal NONE SEEN [facility] Comment on above: Performed By: #### U MICRO, UACSIND #### [facility] [address] [address] Monica Swathi RBC 2-5 Abnormal 0-2 [facility] Comment on above: Performed By: #### U MICRO, UACSIND #### [facility] [address] [address] Monica Swathi WBC NONE SEEN Normal NONE SEEN [facility] Comment on above: Performed By: #### U MICRO, UACSIND #### [facility] [address] [address] Monica Swathi US PREG BIOPHY W NON [...] by: NIHARIKA FUENTES Date: 2020-09-26 10:21 Normal [facility] US PREG BIOPHY W NON STRESSo n [...] biophysical profile score: 8.0 Electronically authenticated by: BUTHC HOLLAND Date: 2020-09-20 15:08 Normal [facility] US PREG AMNIOTIC FLUID VOLUM Gerardo 09-17-2020 [...] by: BUTCH HOLLAND Date: 2020-09-17 09:19 Normal [facility] US PREG BIOPHY W NON STRESSo n [...] by: NIHARIKA FUENTES Date: 2020-09-13 13:44 Normal [facility] US PREG GROWTHon 09-10-2020 US PREG GROWTH [...] by: BUTCH HOLLAND Date: 2020-09-10 09:41 Normal [facility] US PREG BIOPHY W NON STRESSo n [...] by: BUTCH HOLLAND Date: 2020-09-06 20:20 Normal [facility] US KIDNEYSon 07-01-2020 US KIDNEYS EXAM: US [...] jets were noted. Electronically authenticated by: BUTCH JASON Date: 2020-07-01 09:57 Normal [facility] BUNon 06-27-2020 Urea nitrogen [Mass/Vol] 11.0 mg/dL Normal 7.0-17.0 [facility] Comment on above: Performed By: #### B UN, CREKevin #### [facility] [address] [place], [place] [id number] Monica Swathi CBC AUTO DIFFon 06-27-2020 BASO # 0.0 103/ul Normal 0.0-0.1 [facility] Comment on above: Performed By: #### C BC #### [facility] [address] [place], [place] [id number] Monica Swathi Basophils/100 WBC (Bld) 0.3 % Normal 0.2-2.0 [facility] Comment on above: Performed By: #### C BC #### [facility] [address] [place] [address] Monica Swathi EO # 0.1 103/ul Normal 0.0-0.7 [facility] Comment on above: Performed By: #### C BC #### [facility] [address] [place], [place] [id number] Monica Swathi Eosinophils/100 WBC (Bld) 0.8 % Critically low 0.9-7.0 [facility] Comment on above: Performed By: #### C BC #### [facility] [address] [place], [place] [id number] Monica Swathi Erythrocyte distribution width (RBC) [Ratio] 13.2 % Normal 11.0-15.0 [facility] Comment on above: Performed By: #### C BC #### [facility] [address] [place], [place] [id number] Monica Swathi Hematocrit (Bld) [Volume fraction] 34.7 % Critically low 36.0-48.0 [facility] Comment on above: Performed By: #### C BC #### [facility] [address] [place], [place] [id number] Monica Swathi Hemoglobin (Bld) [Mass/Vol] 12.0 g/dL Normal 12.0-16.0 [facility] Comment on above: Performed By: #### C BC #### [facility] [address] [place], [place] [id number] Monicafrancisco Echevarria IG # 0.06 10e3/ul Critically high 0.00-0.[address] [facility] Comment on above: Performed By: #### C BC #### [facility] [address] [id number] Monica Swathi IG % 0.6 % Critically high 0.0-0.5 [facility] Comment on above: Performed By: #### C BC #### [facility] [address] [place] [address] Monica Swathi LYMPH # 2.2 103/ul Normal 1.2-3.8 [facility] Comment on above: Performed By: #### C BC #### [facility] [address] [place] [address] Monica Echevarria Lymphocytes/100 WBC (Bld) 22.8 % Normal 20.5-60.0 [facility] Comment on above: Performed By: #### C BC #### [facility] [address] [place], [place] [id number] Monica Echevarria MANUAL DIFF REQ NO Normal [facility] Comment on above: Performed By: #### C BC #### [facility] [address] [place] [address] Monicafrancisco Echevarria MCH (RBC) [Entitic mass] 31.5 pg Normal 26.7-34.0 [facility] Comment on above: Performed By: #### C BC #### [facility] [address] [place] [address] Monicafrancisco Echevarria MCHC (RBC) [Mass/Vol] 34.6 g/dL Normal 29.9-35.2 [facility] Comment on above: Performed By: #### C BC #### [facility] [address] [place] [address] Monica Swathi MCV (RBC) [Entitic vol] 91.1 fL Normal 81.0-99.0 [facility] Comment on above: Performed By: #### C BC #### [facility] [address] [place], [place] [address] Monicafrancisco Kauren MONO # 0.7 103/ul Normal 0.3-0.8 [facility] Comment on above: Performed By: #### C BC #### [facility] [address] [place], [place] [address] Monica Swathi Monocytes/100 WBC (Bld) 6.8 % Normal 1.7-12.0 [facility] Comment on above: Performed By: #### C BC #### [facility] [address] [id number] Monica Swathi NEUT # 6.6 103/ul Critically high 1.4-6.5 [facility] Comment on above: Performed By: #### C BC #### [facility] [address] [place], [place] [id number] Monica Swathi Neutrophils/100 WBC (Bld) 68.7 % Normal 43.0-75.0 [facility] Comment on above: Performed By: #### C BC #### [facility] [address] [place], [place] [id number] Monica Kauren Platelet mean volume (Bld) [Entitic vol] 9.4 fL Critically low 9.5-13.5 [facility] Comment on above: Performed By: #### C BC #### [facility] [address] [place], [place] [id number] Monica Swathi PLT 208 103/ul Normal 150-450 [facility] Comment on above: Performed By: #### C BC #### [facility] [address] [place], [place] [id number] Monica Swathi RBC 3.81 106/ul Critically low 4.20-5.40 [facility] Comment on above: Performed By: #### C BC #### [facility] [address] [place], [place] [id number] Monica Swathi WBC 9.6 103/ul Normal 4.0-11.0 [facility] Comment on above: Performed By: #### C BC #### [facility] [address] [address] Monica Echevarria CREATININEon 06-27-2020 Creatinine [Mass/Vol] 0.71 mg/dL Normal 0.52-1.04 [facility] Comment on above: Performed By: #### B DELFIN, CREA #### [facility] [address] [place], [place] [address] Monica Echevarria EGFR-AF SENEGALESE >60 Normal >=60 [facility] Comment on above: Performed By: #### B UN, CREA #### [facility] [address] [address] Monica Echevarria EGFR-NON AF SENEGALESE >60 Normal >=60 [facility] Comment on above: Performed By: #### B DELFIN, CREA #### [facility] [address] [address] Monica Echevarria US PREG PLACENTAon US PREG PLACENTA EXAMINATION: US PREG PLACENTA [...] by: NIHARIKA FUENTES Date: 2020-06-27 11:48 Normal [facility] Vital Signs Date Time Vital Sign Value Performing Clinician Jacqueline ruth 10-02-2024 11:17-040 Body height 170.5 cm Nicole Marquis APRN.CNP Work Phone: [facility] 10-02-2024 11:17-040 Body mass index (BMI) [Ratio] 25.28 kg/m2 Nicole Marquis APRN.CNP Work Phone: [facility] 10-02-2024 11:17-0400 Body weight 73.5 kg Nicole Marquis APRN.CNP Work Phone: [facility] 10-02-2024 11:17-0400 Diastolic blood pressure 86 mm[Hg] Nicole Louden LAYOUT OPERATOR.DESIGN TRANSFERRER Work Phone: [facility] 10-02-2024 11:17-0400 Heart rate 88 /min Nicole Louden LAYOUT OPERATOR.DESIGN TRANSFERRER Work Phone: [facility] 10-02-2024 11:17-0400 Systolic blood pressure 127 mm[Hg] Nicole Louden LAYOUT OPERATOR.DESIGN TRANSFERRER Work Phone: [facility] 06-15-2024 09:04-0500 Body height 170.2 cm Mick Garcia FELT DYEING MACHINE TENDER Work Phone: [facility] 06-15-2024 09:04-0500 Body mass index (BMI) [Ratio] 25.37 kg/m2 Mick Garcia FELT DYEING MACHINE TENDER Work Phone: [facility] 06-15-2024 09:04-0500 Body weight 73.48 kg Mick Garcia FELT DYEING MACHINE TENDER Work Phone: [facility] 06-15-2024 09:04-0500 Diastolic blood pressure 78 mm[Hg] Mick Hadaveburg FELT DYEING MACHINE TENDER Work Phone: [facility] 06-15-2024 09:04-0500 Heart rate 55 /min Mick Garcia FELT DYEING MACHINE TENDER Work Phone: [facility] 06-15-2024 09:04-0500 SaO2% (BldA) [Mass fraction] 96 % Mick Garcia FELT DYEING MACHINE TENDER Work Phone: [facility] 06-15-2024 09:04-0500 Systolic blood pressure 126 mm[Hg] Mick Hadewayneenburg FELT DYEING MACHINE TENDER Work Phone: [facility] 06-08-2024 11:02-0500 Body height 170.2 cm Mick Garcia FELT DYEING MACHINE TENDER Work Phone: [facility] 06-08-2024 11:02-0500 Body mass index (BMI) [Ratio] 26.69 kg/m2 Mick Hadaveburg FELT DYEING MACHINE TENDER Work Phone: [facility] 06-08-2024 11:02-0500 Body temperature 99.81 [degF] Mick Garcia FELT DYEING MACHINE TENDER Work Phone: [facility] 06-08-2024 11:02-0500 Body weight 77.29 kg Mick Garcia FELT DYEING MACHINE TENDER Work Phone: [facility] 06-08-2024 11:02-0500 Diastolic blood pressure 78 mm[Hg] Mick Garcia FELT DYEING MACHINE TENDER Work Phone: [facility] 06-08-2024 11:02-0500 Heart rate 110 /min Mick Garcia FELT DYEING MACHINE TENDER Work Phone: [facility] 06-08-2024 11:02-0500 SaO2% (BldA) [Mass fraction] 98 % Mick Garcia FELT DYEING MACHINE TENDER Work Phone: [facility] 06-08-2024 11:02-0500 Systolic blood pressure 122 mm[Hg] Mick Garcia FELT DYEING MACHINE TENDER Work Phone: [facility] 05-10-2024 16:23-0500 Body height 170.2 cm Josefina Carrillo FELT DYEING MACHINE TENDER Work Phone: [facility] 05-10-2024 16:23-0500 Body mass index (BMI) [Ratio] 27.47 kg/m2 Josefina Carrillo FELT DYEING MACHINE TENDER Work Phone: [facility] 05-10-2024 16:23-0500 Body temperature 98.71 [degF] Josefina Carrillo FELT DYEING MACHINE TENDER Work Phone: [facility] 05-10-2024 16:23-0500 Body weight 79.56 kg Josefina Carrillo FELT DYEING MACHINE TENDER Work Phone: [facility] 05-10-2024 16:23-0500 Diastolic blood pressure 80 mm[Hg] Josefina Carrillo FELT DYEING MACHINE TENDER Work Phone: [facility] 05-10-2024 16:23-0500 Heart rate 97 /min Josefina Carrillo FELT DYEING MACHINE TENDER Work Phone: [facility] 05-10-2024 16:23-0500 SaO2% (BldA) [Mass fraction] 99 % Josefina Carrillo FELT DYEING MACHINE TENDER Work Phone: [facility] 05-10-2024 16:23-0500 Systolic blood pressure 124 mm[Hg] Josefina Carrillo FELT DYEING MACHINE TENDER Work Phone: [facility] 04-27-2024 16:03-0500 Body height 170.5 cm Nicole Louden LAYOUT OPERATOR.DESIGN TRANSFERRER Work Phone: [facility] 04-27-2024 16:03-0500 Body mass index (BMI) [Ratio] 26.68 kg/m2 Nicole Louden LAYOUT OPERATOR.DESIGN TRANSFERRER Work Phone: [facility] 04-27-2024 16:03-0500 Body weight 77.56 kg Nicole Louden LAYOUT OPERATOR.DESIGN TRANSFERRER Work Phone: [facility] 02-15-2024 09:11-0500 Body mass index (BMI) [Ratio] 27.5 kg/m2 Mick Garcia FELT DYEING MACHINE TENDER Work Phone: [facility] 02-15-2024 09:11-0500 Body temperature 96.91 [degF] Mick Garcia FELT DYEING MACHINE TENDER Work Phone: [facility] 02-15-2024 09:11-0500 Body weight 79.65 kg Mick Garcia FELT DYEING MACHINE TENDER Work Phone: [facility] 02-15-2024 09:11-0500 Diastolic blood pressure 84 mm[Hg] Mick Garcia FELT DYEING MACHINE TENDER Work Phone: [facility] 02-15-2024 09:11-0500 Heart rate 98 /min Mick Garcia FELT DYEING MACHINE TENDER Work Phone: [facility] 02-15-2024 09:11-0500 SaO2% (BldA) [Mass fraction] 96 % Mick Garcia FELT DYEING MACHINE TENDER Work Phone: [facility] 02-15-2024 09:11-0500 Systolic blood pressure 120 mm[Hg] Mick Garcia FELT DYEING MACHINE TENDER Work Phone: [facility] 02-07-2024 16:18-0400 Body mass index (BMI) [Ratio] 27.41 kg/m2 Lakesha Patel FELT DYEING MACHINE TENDER Work Phone: [facility] 02-07-2024 16:18-0400 Body temperature 97.2 [degF] Lakesha Thomask FELT DYEING MACHINE TENDER Work Phone: [facility] 02-07-2024 16:18-0400 Body weight 79.38 kg Lakesha Patel FELT DYEING MACHINE TENDER Work Phone: [facility] 02-07-2024 16:18-0400 Diastolic blood pressure 72 mm[Hg] Lakesha Thomask FELT DYEING MACHINE TENDER Work Phone: [facility] 02-07-2024 16:18-0400 Systolic blood pressure 106 mm[Hg] Lakesha Thomask FELT DYEING MACHINE TENDER Work Phone: [facility] 02-03-2024 16:14-0400 Diastolic blood pressure 82 mm[Hg] Chair [place] Work Phone: [facility] 02-03-2024 16:14-0400 Heart rate 96 /min Chair [place] Work Phone: [facility] 02-03-2024 16:14-0400 Respiratory rate 18 /min Chair [place] Work Phone: [facility] 02-03-2024 16:14-0400 Systolic blood pressure 117 mm[Hg] Chair [place] Work Phone: [facility] 02-02-2024 15:35-0400 Body height 170.[address] Work Phone: [facility] 02-02-2024 15:35-0400 Body mass index (BMI) [Ratio] 27.18 kg/m2 Leigha Yooni RD Work Phone: [facility] 02-02-2024 15:35-0400 Body weight 79.[address] Work Phone: [facility] Comment on above: verbal, per patient 01-26-2024 16:39-0400 Body height 170.5 cm Nicole Louden LAYOUT OPERATOR.DESIGN TRANSFERRER Work Phone: [facility] 01-26-2024 16:39-0400 Body mass index (BMI) [Ratio] 27.18 kg/m2 Nicole Louden LAYOUT OPERATOR.DESIGN TRANSFERRER Work Phone: [facility] 01-26-2024 16:39-0400 Body weight 79.02 kg Nicole Louden LAYOUT OPERATOR.DESIGN TRANSFERRER Work Phone: [facility] 01-13-2024 16:24-0400 Diastolic blood pressure 82 mm[Hg] Chair [place] Work Phone: [facility] 01-13-2024 16:24-0400 Heart rate 80 /min Chair Cristian Work Phone: [facility] 01-13-2024 16:24-0400 Respiratory rate 18 /min Chair [place] Work Phone: [facility] 01-13-2024 16:24-0400 Systolic blood pressure 117 mm[Hg] Chair [place] Work Phone: [facility] 01-06-2024 10:38-0400 Body mass index (BMI) [Ratio] 28.21 kg/m2 Titus Taylor MD Work Phone: [facility] 01-06-2024 10:38-0400 Body temperature 97.2 [degF] Titus Taylor MD Work Phone: [facility] 01-06-2024 10:38-0400 Body weight 82 kg Titus Taylor MD Work Phone: [facility] 01-06-2024 10:38-0400 Diastolic blood pressure 86 mm[Hg] Titus Taylor MD Work Phone: [facility] 01-06-2024 10:38-0400 Heart rate 92 /min Titus Taylor MD Work Phone: [facility] 01-06-2024 10:38-0400 Respiratory rate 16 /min Titus Taylor MD Work Phone: [facility] 01-06-2024 10:38-0400 SaO2% (BldA) [Mass fraction] 100 % Titus Taylor MD Work Phone: [facility] 01-06-2024 10:38-0400 Systolic blood pressure 129 mm[Hg] Titus Taylor MD Work Phone: [facility] 12-29-2023 15:52-0400 Body mass index (BMI) [Ratio] 28.28 kg/m2 Titus Taylor MD Work Phone: [facility] 12-29-2023 15:52-0400 Body temperature 97.5 [degF] Titus Taylor MD Work Phone: [facility] 12-29-2023 15:52-0400 Body weight 82.2 kg Titus Taylor MD Work Phone: [facility] 12-29-2023 15:52-0400 Diastolic blood pressure 80 mm[Hg] Titus Taylor MD Work Phone: [facility] 12-29-2023 15:52-0400 Heart rate 92 /min Titus Taylor MD Work Phone: [facility] 12-29-2023 15:52-0400 Respiratory rate 18 /min Titus Taylor MD Work Phone: [facility] 12-29-2023 15:52-0400 SaO2% (BldA) [Mass fraction] 100 % Titus Taylor MD Work Phone: [facility] 12-29-2023 15:52-0400 Systolic blood pressure 114 mm[Hg] Titus Taylor MD Work Phone: [facility] 10-06-2023 13:05-0400 Body height 170.5 cm Nicole Louden LAYOUT OPERATOR.DESIGN TRANSFERRER Work Phone: [facility] 10-06-2023 13:05-0400 Body mass index (BMI) [Ratio] 28.55 kg/m2 Nicole Louden LAYOUT OPERATOR.DESIGN TRANSFERRER Work Phone: [facility] 10-06-2023 13:05-0400 Body weight 83.01 kg Nicole Louden LAYOUT OPERATOR.DESIGN TRANSFERRER Work Phone: [facility] 10-06-2023 13:05-0400 Diastolic blood pressure 83 mm[Hg] Nicole Louden LAYOUT OPERATOR.DESIGN TRANSFERRER Work Phone: [facility] 10-06-2023 13:05-0400 Heart rate 93 /min Nicole Louden LAYOUT OPERATOR.DESIGN TRANSFERRER Work Phone: [facility] 10-06-2023 13:05-0400 SaO2% (BldA) [Mass fraction] 99 % Nicole Louden LAYOUT OPERATOR.DESIGN TRANSFERRER Work Phone: [facility] 10-06-2023 13:05-0400 Systolic blood pressure 122 mm[Hg] Nicole Louden LAYOUT OPERATOR.DESIGN TRANSFERRER Work Phone: [facility] 05-19-2023 08:50-0500 Diastolic blood pressure 86 mm[Hg] Josefina Carrillo FELT DYEING MACHINE TENDER Work Phone: [facility] 05-19-2023 08:50-0500 Systolic blood pressure 120 mm[Hg] Josefina Carrillo FELT DYEING MACHINE TENDER Work Phone: [facility] 05-19-2023 08:36-0500 Body height 170.2 cm Josefina Carrillo FELT DYEING MACHINE TENDER Work Phone: [facility] 05-19-2023 08:36-0500 Body mass index (BMI) [Ratio] 29.41 kg/m2 Josefina Carrillo FELT DYEING MACHINE TENDER Work Phone: [facility] 05-19-2023 08:36-0500 Body temperature 98.6 [degF] Josefina Carrillo FELT DYEING MACHINE TENDER Work Phone: [facility] 05-19-2023 08:36-0500 Body weight 85.19 kg Josefina Carrillo FELT DYEING MACHINE TENDER Work Phone: [facility] 05-19-2023 08:36-0500 Heart rate 85 /min Josefina Carrillo FELT DYEING MACHINE TENDER Work Phone: [facility] 05-19-2023 08:36-0500 SaO2% (BldA) [Mass fraction] 99 % Josefina Carrillo FELT DYEING MACHINE TENDER Work Phone: [facility] 02-03-2023 11:31-0400 Body height 170.5 cm Nicole Louden LAYOUT OPERATOR.DESIGN TRANSFERRER Work Phone: [facility] 02-03-2023 11:31-0400 Body weight 89 kg Nicole Louden LAYOUT OPERATOR.DESIGN TRANSFERRER Work Phone: [facility] 10-28-2022 07:17-0400 Body weight 94.35 kg Nicole Louden LAYOUT OPERATOR.DESIGN TRANSFERRER Work Phone: [facility] Encounters Encounter Date Encounter Type Care Provider Facility Start: 01-19-2025 End: 01-19-2025 ambulatory [facility] Start: 01-18-2025 End: 01-19-2025 ambulatory [facility] Comment on above: Need for immunizatio n against influenza (Primary Dx) Start: 01-16-2025 End: 01-16-2025 ambulatory NAM MALICKI Not Available Start: 01-16-2025 End: 01-16-2025 Bamboo flowsheet Nam Malicki VISUAL C DEVELOPER [facility] Start: 01-16-2025 End: 01-16-2025 Bamboo flowsheet Nam Malicki VISUAL C DEVELOPER [facility] Start: 01-11-2025 End: 01-11-2025 ambulatory NAM MALICKI Not Available Start: 01-11-2025 End: 01-11-2025 Bamboo flowsheet Nam Malicki VISUAL C DEVELOPER [facility] Start: 01-11-2025 End: 01-11-2025 Bamboo flowsheet Nam Malicki VISUAL C DEVELOPER [facility] Start: 12-28-2024 End: 12-28-2024 ambulatory NICOLE LOUDEN Facility:[facility] Start: 12-21-2024 End: 12-21-2024 ambulatory NAM MALICKI Not Available Start: 12-21-2024 End: 12-21-2024 Bamboo flowsheet Nam Malicki VISUAL C DEVELOPER [facility] Start: 12-21-2024 End: 12-21-2024 Bamboo flowsheet Nam Malicki VISUAL C DEVELOPER [facility] Start: 12-15-2024 End: 12-21-2024 Refill Nicole Louden LAYOUT OPERATOR.DESIGN TRANSFERRER Work Phone: General Surgery Comment on above: Refill Request Start: 12-14-2024 End: 12-15-2024 ambulatory NAM MALICKI Not Available Start: 12-14-2024 End: 12-14-2024 Bamboo flowsheet Nam Malicki VISUAL C DEVELOPER [facility] Start: 12-14-2024 End: 12-14-2024 Bamboo flowsheet Nam Malicki VISUAL C DEVELOPER [facility] Start: 11-25-2024 End: 12-08-2024 ambulatory Nicole Louden LAYOUT OPERATOR.DESIGN TRANSFERRER Work Phone: [facility] Start: 11-25-2024 End: 12-08-2024 Patient encounter procedure Nicole Louden LAYOUT OPERATOR.DESIGN TRANSFERRER Work Phone: [facility] Comment on above: wegovy Start: 11-15-2024 End: 11-15-2024 ambulatory NAM MALICKI Not Available Start: 11-15-2024 End: 11-15-2024 Bamboo flowsheet Nam Malicki VISUAL C DEVELOPER [facility] Start: 11-15-2024 End: 11-15-2024 Bamboo flowsheet Nam Malicki VISUAL C DEVELOPER [facility] Start: 11-06-2024 End: 11-07-2024 ambulatory NAM MALICKI Not Available Start: 11-06-2024 End: 11-06-2024 Bamboo flowsheet Nam Malicki VISUAL C DEVELOPER [facility] Start: 11-06-2024 End: 11-06-2024 Bamboo flowsheet Nam Malicki VISUAL C DEVELOPER [facility] Start: 10-25-2024 End: 10-26-2024 ambulatory NAM MALICKI Not Available Start: 10-25-2024 End: 10-25-2024 Bamboo flowsheet Nam Malicki VISUAL C DEVELOPER [facility] Start: 10-25-2024 End: 10-25-2024 Bamboo flowsheet Nam Malicki VISUAL C DEVELOPER [facility] Start: 10-19-2024 End: 10-19-2024 ambulatory NAM MALICKI Not Available Start: 10-19-2024 End: 10-19-2024 Bamboo flowsheet Nam Malicki VISUAL C DEVELOPER [facility] Start: 10-19-2024 End: 10-19-2024 Bamboo flowsheet Nam Barriosicki VISUAL C DEVELOPER [facility] Start: 10-02-2024 End: 10-02-2024 Clinisync Result Encounter Generic External Data Provider [facility] External Department Unsolicited Start: 10-02-2024 End: 10-02-2024 Clinisync Result Encounter Generic External Data Provider [facility] External Department Unsolicited Start: 10-02-2024 End: 10-02-2024 ambulatory MARIYA PRATHER Facility:[facility] Start: 10-02-2024 End: 10-02-2024 Patient encounter procedure Nicole Marquis APRN.DESIGN TRANSFERRER Work Phone: [facility] Comment on above: History of obesity ( Primary Dx); S/P laparoscopic sleeve gastrectomy; PCOS (polycystic ovarian syndrome); Mild obstructive sleep apnea; Overweight Start: 10-02-2024 End: 10-02-2024 ambulatory NICOLE MARQUIS Facility:[facility] Start: 09-14-2024 End: 09-14-2024 ambulatory MARIYA HUERTA Facility:[facility] Start: 09-13-2024 End: 09-14-2024 ambulatory NAM MALICKI Not Available Start: 09-13-2024 End: 09-13-2024 Bamboo flowsheet Nam Malicki VISUAL C DEVELOPER [facility] Start: 09-13-2024 End: 09-13-2024 Bamboo flowsheet Nam Malicki VISUAL C DEVELOPER [facility] Start: 09-08-2024 End: 09-08-2024 Patient Msg Nicole Benitez LAYOUT OPERATOR.DESIGN TRANSFERRER Work Phone: General Surgery Comment on above: Refill Start: 09-06-2024 End: 09-06-2024 ambulatory NAM MALICKI Not Available Start: 09-06-2024 End: 09-06-2024 Bamboo flowsheet Nam Malicki VISUAL C DEVELOPER [facility] Start: 09-06-2024 End: 09-06-2024 Bamboo flowsheet Nam Malicki VISUAL C DEVELOPER [facility] Start: 09-04-2024 End: 09-08-2024 Refill Nicole Loudleydi LAYOUT OPERATOR.DESIGN TRANSFERRER Work Phone: General Surgery Comment on above: Refill Request Start: 08-30-2024 End: 08-31-2024 ambulatory NAM MALICKI Not Available Start: 08-30-2024 End: 08-30-2024 Bamboo flowsheet Nam Malicki VISUAL C DEVELOPER [facility] Start: 08-30-2024 End: 08-30-2024 Bamboo flowsheet Nam Malicki VISUAL C DEVELOPER [facility] Start: 08-07-2024 End: 08-07-2024 ambulatory NAM MALICKI Not Available Start: 08-07-2024 End: 08-07-2024 Bamboo flowsheet Nam Malicki VISUAL C DEVELOPER [facility] Start: 08-07-2024 End: 08-07-2024 Bamboo flowsheet Nam Malicki VISUAL C DEVELOPER [facility] Start: 07-31-2024 End: 08-01-2024 ambulatory NAM MALICKI Not Available Start: 07-31-2024 End: 07-31-2024 Bamboo flowsheet Nam Malicki VISUAL C DEVELOPER [facility] Start: 07-31-2024 End: 07-31-2024 Bamboo flowsheet Nam Malicki VISUAL C DEVELOPER [facility] Start: 07-27-2024 End: 07-27-2024 ambulatory NAM MALICKI Not Available Start: 07-27-2024 End: 07-27-2024 Bamboo flowsheet Nam Malicki VISUAL C DEVELOPER [facility] Start: 07-27-2024 End: 07-27-2024 Bamboo flowsheet Nam Malicki VISUAL C DEVELOPER [facility] Start: 07-17-2024 End: 07-18-2024 ambulatory NAM MALICKI Not Available Start: 07-17-2024 End: 07-17-2024 Bamboo flowsheet Nam Malicki VISUAL C DEVELOPER [facility] Start: 07-17-2024 End: 07-17-2024 Bamboo flowsheet Nam Malicki VISUAL C DEVELOPER [facility] Start: 07-10-2024 End: 07-10-2024 ambulatory NAM MALICKI Not Available Start: 07-10-2024 End: 07-10-2024 Bamboo flowsheet Nam Malicki VISUAL C DEVELOPER [facility] Start: 07-10-2024 End: 07-10-2024 Bamboo flowsheet Nam Malicki VISUAL C DEVELOPER [facility] Start: 07-05-2024 End: 07-16-2024 Refill Nicole Louden LAYOUT OPERATOR.DESIGN TRANSFERRER Work Phone: General Surgery Comment on above: Refill Request Start: 07-04-2024 End: 07-19-2024 Admission to same day surgery center Nicole Marquis LAYOUT OPERATOR.DESIGN TRANSFERRER Work Phone: General Surgery Comment on above: Zepbound pre authori zation Start: 07-04-2024 End: 07-19-2024 ambulatory Nicole Louden LAYOUT OPERATOR.DESIGN TRANSFERRER Work Phone: General Surgery Start: 07-04-2024 End: 07-04-2024 Refill Nicole Louden LAYOUT OPERATOR.DESIGN TRANSFERRER Work Phone: General Surgery Comment on above: Refill Request Start: 06-19-2024 End: 06-20-2024 ambulatory NAM MALICKI Not Available Start: 06-19-2024 End: 06-19-2024 Bamboo flowsheet Nam Malicki VISUAL C DEVELOPER [facility] Start: 06-19-2024 End: 06-19-2024 Bamboo flowsheet Nam Malicki VISUAL C DEVELOPER [facility] Start: 06-15-2024 End: 06-15-2024 Bamboo flowsheet Mick A Hadewayneenburg FELT DYEING MACHINE TENDER Work Phone: [facility] Start: 06-15-2024 End: 06-15-2024 Bamboo flowsheet Mick A Hadewayneenburg FELT DYEING MACHINE TENDER Work Phone: [facility] Start: 06-15-2024 End: 06-15-2024 Office outpatient visit 25 minutes Mick Kevin Britoenburg FELT DYEING MACHINE TENDER Work Phone: [facility] Comment on above: Diarrhea, unspecifie d type (Primary Dx); Upper respiratory tract infection, unspecified type Start: 06-15-2024 End: 06-15-2024 ambulatory MICK Kevin BRITOENJAYY Not Available Start: 06-08-2024 End: 06-08-2024 Bamboo flowsheet Mick A Alishaenburg FELT DYEING MACHINE TENDER Work Phone: [facility] Start: 06-08-2024 End: 06-08-2024 Bamboo flowsheet Mick A Alishaenburg FELT DYEING MACHINE TENDER Work Phone: [facility] Start: 06-08-2024 End: 06-08-2024 Office outpatient visit 15 minutes Mick Kevin Garcia FELT DYEING MACHINE TENDER Work Phone: [facility] Comment on above: Chest congestion (Pr imary Dx); Viral URI with cough; Exposure to influenza Start: 06-08-2024 End: 06-08-2024 ambulatory MICK A ALISHAENBURG Not Available Start: 05-10-2024 End: 05-10-2024 Office outpatient visit 15 minutes Josefina Lorena FELT DYEING MACHINE TENDER Work Phone: [facility] Comment on above: Nasal congestion (Pr imary Dx); Antibiotic-induced yeast infection; Acute non-recurrent pansinusitis Start: 05-10-2024 End: 05-10-2024 ambulatory JOSEFINA CARRILLO Not Available Start: 05-10-2024 End: 05-10-2024 Bamboo flowsheet Josefina Carrillo FELT DYEING MACHINE TENDER Work Phone: [facility] Start: 05-10-2024 End: 05-10-2024 Lino mckeonheet Josefina Mcfarlaneisiscarlitos FELT DYEING MACHINE TENDER Work Phone: [facility] Start: 04-27-2024 End: 04-27-2024 Admission to same day surgery center Nicole Louden LAYOUT OPERATOR.DESIGN TRANSFERRER Work Phone: General Surgery Comment on above: Overweight (Primary Dx); History of obesity; Encounter for surgical aftercare following surgery of digestive system; S/P laparoscopic sleeve gastrectomy Start: 04-27-2024 End: 04-27-2024 ambulatory NICOLE LOUDEN Facility:[facility] Start: 04-27-2024 End: 04-27-2024 Telemedicine consultation with patient Nicole Louden LAYOUT OPERATOR.DESIGN TRANSFERRER Work Phone: General Surgery Start: 04-19-2024 End: 04-19-2024 Refill Nicole Louden LAYOUT OPERATOR.DESIGN TRANSFERRER Work Phone: General Surgery Comment on above: Refill Request Start: 04-10-2024 End: 04-10-2024 Refill Nicole Louden LAYOUT OPERATOR.DESIGN TRANSFERRER Work Phone: General Surgery Comment on above: Med Change Request Start: 04-07-2024 End: 04-07-2024 Clinisync Result Encounter Generic External Data Provider [facility] External Department Unsolicited Start: 04-07-2024 End: 04-07-2024 Clinisync Result Encounter Generic External Data Provider [facility] External Department Unsolicited Start: 04-07-2024 End: 04-07-2024 ambulatory TITUS DIOEPUREDDY Facility:[facility] Start: 02-29-2024 End: 03-03-2024 Admission to same day surgery center Nicole Louden LAYOUT OPERATOR.DESIGN TRANSFERRER Work Phone: General Surgery Comment on above: zepbound Start: 02-29-2024 End: 03-03-2024 ambulatory Nicole Louden LAYOUT OPERATOR.DESIGN TRANSFERRER Work Phone: General Surgery Start: 02-23-2024 End: 02-24-2024 ambulatory Nav Calvillo Facility:[facility] Start: 02-22-2024 End: 02-22-2024 ambulatory Chair Narcisa Denson Work Phone: Hematology/Oncology Comment on above: Hereditary hemochrom atosis (HCC) (Primary Dx) Start: 02-22-2024 End: 02-22-2024 Clinisync Result Encounter Generic External Data Provider [facility] External Department Unsolicited Start: 02-22-2024 End: 02-22-2024 Clinisync Result Encounter Generic External Data Provider [facility] External Department Unsolicited Start: 02-17-2024 End: 02-17-2024 Orders Only Mick Garcia FELT DYEING MACHINE TENDER Work Phone: [facility] Comment on above: Low serum calcium (P rimary Dx) Start: 02-15-2024 End: 02-15-2024 Bamboo flowsheet Mick Garcia FELT DYEING MACHINE TENDER Work Phone: [facility] Start: 02-15-2024 End: 02-15-2024 Bamboo flowsheet Mick Garcia FELT DYEING MACHINE TENDER Work Phone: [facility] Start: 02-15-2024 End: 02-15-2024 Transitional care manage srvc 7 day discharge Mick Garcia FELT DYEING MACHINE TENDER Work Phone: [facility] Comment on above: Hypokalemia (Primary Dx); Hereditary hemochromatosis (CMS/HCC); Pneumonia of right lower lobe due to infectious organism Start: 02-15-2024 End: 02-15-2024 ambulatory MICK GARCIA Not Available Start: 02-10-2024 End: 02-12-2024 Evaluation and management of inpatient Nav Calvillo Facility:[facility] Start: 02-10-2024 End: 02-10-2024 ambulatory MARIYA HUERTA Facility:[facility] Start: 02-10-2024 End: 02-10-2024 Telephone encounter Dagoberto Mendez MD Work Phone: [facility] Start: 02-08-2024 End: 02-08-2024 Orders Only Lakesha Patel FELT DYEING MACHINE TENDER Work Phone: [facility] Comment on above: Bronchitis (Primary Dx) Start: 02-07-2024 End: 02-07-2024 ambulatory LAKESHA PATEL Not Available Start: 02-07-2024 End: 02-07-2024 Office outpatient visit 25 minutes Lakesha Patel FELT DYEING MACHINE TENDER Work Phone: [facility] Comment on above: Acute left otitis me main (Primary Dx); Fever, unspecified fever cause; Wheezing; Bronchitis Start: 02-07-2024 End: 02-07-2024 Bamboo flowsheet Lakesha Patel FELT DYEING MACHINE TENDER Work Phone: [facility] Start: 02-07-2024 End: 02-07-2024 Bamboo flowsheet Lakesha Patel FELT DYEING MACHINE TENDER Work Phone: [facility] Start: 02-03-2024 End: 02-03-2024 ambulatory Chair 21 Cristian Work Phone: Hematology/Oncology Comment on above: Hereditary hemochrom atosis (HCC) (Primary Dx) Start: 02-03-2024 End: 02-03-2024 Clinisync Result Encounter Generic External Data Provider [facility] External Department Unsolicited Start: 02-03-2024 End: 02-03-2024 Clinisync Result Encounter Generic External Data Provider [facility] External Department Unsolicited Start: 02-02-2024 End: 02-02-2024 Admission to same day surgery center Leigha Lake RD Work Phone: General Surgery Comment on above: History of sleeve ga strectomy (Primary Dx); Overweight (BMI 25.0-29.9); Dietary counseling and surveillance Start: 02-02-2024 End: 02-02-2024 ambulatory LEIGHA LAKE Facility:[facility] Start: 02-02-2024 End: 02-02-2024 Telemedicine consultation with patient Leigha Lake RD Work Phone: General Surgery Start: 02-02-2024 End: 02-02-2024 Telephone encounter Deb Maza RN Hematology/Oncology Start: 01-26-2024 End: 01-26-2024 ambulatory NICOLE MARQUIS Facility:[facility] Start: 01-26-2024 End: 01-26-2024 Telemedicine consultation with patient Nicole Marquis APRN.SULAIMAN Work Phone: General Surgery Start: 01-26-2024 End: 01-26-2024 Admission to same day surgery center Nicole Marquis APRN.DESIGN TRANSFERRER Work Phone: General Surgery Comment on above: Overweight (Primary Dx); Mild obstructive sleep apnea Visit Start: 01-26-2024 End: 01-26-2024 E-mail encounter from caregiver Nicole Marquis APRN.DESIGN TRANSFERRER Work Phone: General Surgery Start: 01-16-2024 End: 01-23-2024 Refill Nicole Marquis APRN.DESIGN TRANSFERRER Work Phone: General Surgery Comment on above: Refill Request Start: 01-13-2024 End: 01-13-2024 ambulatory Chair Narcisa Denson Work Phone: Hematology/Oncology Comment on above: Hereditary hemochrom atosis (HCC) (Primary Dx) Start: 01-13-2024 End: 01-13-2024 Clinisync Result Encounter Generic External Data Provider [facility] External Department Unsolicited Start: 01-13-2024 End: 01-13-2024 Clinisync Result Encounter Generic External Data Provider [facility] External Department Unsolicited Start: 01-13-2024 End: 01-13-2024 Telephone encounter Leesa Voss RN Hematology/Oncology Comment on above: treatment parameters Start: 01-06-2024 End: 01-06-2024 Office outpatient visit 25 minutes Titus Taylor MD Work Phone: Hematology/Oncology Comment on above: Hereditary hemochrom atosis (HCC) (Primary Dx) Start: 12-30-2023 End: 12-30-2023 Clinisync Result Encounter Generic External Data Provider [facility] External Department Unsolicited Start: 12-30-2023 End: 12-30-2023 Clinisync Result Encounter Generic External Data Provider [facility] External Department Unsolicited Start: 12-29-2023 End: 12-29-2023 Office outpatient new 45 minutes Titus Taylor MD Work Phone: Hematology/Oncology Comment on above: High total iron bind ing capacity (Primary Dx); High serum transferrin saturation Start: 12-29-2023 End: 12-31-2023 Refill Nicole Marquis APRN.DESIGN TRANSFERRER Work Phone: General Surgery Comment on above: Refill Request Start: 12-24-2023 End: 12-24-2023 Orders Only Josefina Carrillo FELT DYEING MACHINE TENDER Work Phone: [facility] Comment on above: Candidiasis (Primary Dx) Start: 12-16-2023 End: 12-16-2023 Admission to same day surgery center Nicole Louden LAYOUT OPERATOR.DESIGN TRANSFERRER Work Phone: General Surgery Comment on above: Labs Start: 12-16-2023 End: 12-16-2023 E-mail encounter from caregiver Nicole Marquis APRN.DESIGN TRANSFERRER Work Phone: General Surgery Start: 12-10-2023 End: 12-14-2023 Admission to same day surgery center Nicole Louden LAYOUT OPERATOR.DESIGN TRANSFERRER Work Phone: General Surgery Comment on above: zepbound and c ontrol Start: 12-10-2023 End: 12-14-2023 ambulatory Nicoleelvis Marquis LAYOUT OPERATOR.DESIGN TRANSFERRER Work Phone: General Surgery Start: 12-06-2023 End: 12-06-2023 Clinisync Result Encounter Generic External Data Provider [facility] External Department Unsolicited Start: 12-06-2023 End: 12-06-2023 Clinisync Result Encounter Generic External Data Provider [facility] External Department Unsolicited Start: 11-30-2023 End: 12-07-2023 Admission to same day surgery center Nicole Louden LAYOUT OPERATOR.DESIGN TRANSFERRER Work Phone: General Surgery Comment on above: Blood work Start: 11-30-2023 End: 12-07-2023 ambulatory Nicole Louden LAYOUT OPERATOR.DESIGN TRANSFERRER Work Phone: General Surgery Start: 11-29-2023 End: 12-03-2023 Admission to same day surgery center Nicole Louden LAYOUT OPERATOR.DESIGN TRANSFERRER Work Phone: General Surgery Comment on above: zepbound out of [facility] Start: 11-29-2023 End: 12-03-2023 ambulatory Nicole Marquis APRN.DESIGN TRANSFERRER Work Phone: General Surgery Start: 10-18-2023 Refill Nicole Marquis APRN.DESIGN TRANSFERRER Work Phone: General Surgery Comment on above: Refill Request Start: 10-14-2023 MC Get Medical Advice Nicole Marquis APRN.DESIGN TRANSFERRER Work Phone: General Surgery Comment on above: phentermine refill n ever sent Start: 10-06-2023 End: 10-06-2023 Patient encounter procedure Nicole Marquis APRN.DESIGN TRANSFERRER Work Phone: General Surgery Comment on above: S/P laparoscopic sle ashli gastrectomy (Primary Dx); Class 1 obesity with body mass index (BMI) of 32.0 to 32.9 in adult, unspecified obesity type, unspecified whether serious comorbidity present; History of hypothyroidism Start: 07-21-2023 Admission to [facility] Nicole Marquis APRN.DESIGN TRANSFERRER Work Phone: General Surgery Comment on above: pre authorization ethan coates denied Start: 07-21-2023 ambulatory Nicole Marquis APRN.DESIGN TRANSFERRER Work Phone: General Surgery Start: 07-20-2023 Refill Nicole Marquis APRN.DESIGN TRANSFERRER Work Phone: General Surgery Comment on above: Refill Request Start: 07-05-2023 Refill Nicole Marquis LAYOUT OPERATOR.DESIGN TRANSFERRER Work Phone: General Surgery Comment on above: Refill Request Start: 05-19-2023 Bamboo flowsheet Josefina Carrillo FELT DYEING MACHINE TENDER Work Phone: [facility] Start: 05-19-2023 Bamboo flowsheet Josefina Carrillo FELT DYEING MACHINE TENDER Work Phone: [facility] Start: 05-19-2023 End: 05-19-2023 Office outpatient visit 15 minutes Josefina Carrillo FELT DYEING MACHINE TENDER Work Phone: [facility] Comment on above: Nasal congestion (Pr imary Dx) Start: 03-23-2023 Orders Only Nicoleelvis Marquis LAYOUT OPERATOR.DESIGN TRANSFERRER Work Phone: General Surgery Start: 02-06-2023 ambulatory Nicole Louden LAYOUT OPERATOR.DESIGN TRANSFERRER Work Phone: General Surgery Comment on above: [facility] ormation on the phentermine Start: 02-03-2023 End: 02-03-2023 ambulatory Nicole Louden LAYOUT OPERATOR.DESIGN TRANSFERRER Work Phone: General Surgery Comment on above: Class 1 obesity with body mass index (BMI) of 32.0 to 32.9 in adult, unspecified obesity type, unspecified whether serious comorbidity present (Primary Dx) Start: 02-03-2023 End: 02-03-2023 Telemedicine consultation with patient Nicole Justiceleydi BUSTOSN.DESIGN TRANSFERRER Work Phone: [facility] Start: 01-28-2023 Refill Nicoleelvis Marquis LAYOUT OPERATOR.DESIGN TRANSFERRER Work Phone: General Surgery Comment on above: Med Change Request Start: 12-27-2022 Get Medical Advice Nicoleelvis Justiceen LAYOUT OPERATOR.DESIGN TRANSFERRER Work Phone: General Surgery Comment on above: PRESCRIPTION SENT TO WRONG PHARMACY AND NEEDS TO BE MAIL ORDER! Start: 12-21-2022 Get Medical Advice Nicole Marquis LAYOUT OPERATOR.DESIGN TRANSFERRER Work Phone: General Surgery Comment on above: wegvoy sent to pharm acy and not mail order Start: 12-18-2022 Refill Nicole Louden LAYOUT OPERATOR.DESIGN TRANSFERRER Work Phone: General Surgery Comment on above: Refill Request Start: 11-24-2022 ambulatory Nicole Louden LAYOUT OPERATOR.DESIGN TRANSFERRER Work Phone: General Surgery Comment on above: wegvoy script Start: 10-28-2022 End: 10-28-2022 ambulatory Nicole Louden LAYOUT OPERATOR.DESIGN TRANSFERRER Work Phone: General Surgery Comment on above: Class 1 obesity with body mass index (BMI) of 32.0 to 32.9 in adult, unspecified obesity type, unspecified whether serious comorbidity present (Primary Dx); PCOS (polycystic ovarian syndrome); S/P laparoscopic sleeve gastrectomy Start: 10-28-2022 End: 10-28-2022 Telemedicine consultation with patient Nicole Marquis APRN.DESIGN TRANSFERRER Work Phone: [facility] Start: 06-02-2021 End: 06-02-[address] [...] Date Procedure Procedure Detail Performing Clinician Start: 01-16-2025 End: 01-16-2025 Psychotherapy w/patient 45 minutes Marital problems Nam Mehta VISUAL C DEVELOPER Comment on above: Marital problems; Adjustment disorder with mixed anxiety and depressed mood Start: 01-11-2025 End: 01-11-2025 Psychotherapy w/patient 45 minutes Adjustment disorder with mixed anxiety and depressed mood Nam Cuevasi VISUAL C DEVELOPER Comment on above: Adjustment disorder with mixed anxiety and depressed mood; Marital problems Start: 12-21-2024 End: 12-21-2024 Psychotherapy w/patient 60 minutes Adjustment disorder with mixed anxiety and depressed mood Nam Mehta VISUAL C DEVELOPER Comment on above: Adjustment disorder with mixed anxiety and depressed mood ; Marital problems Start: 12-14-2024 End: 12-15-2024 Psychotherapy w/patient 45 minutes Adjustment disorder with mixed anxiety and depressed mood Nam Cuevasi VISUAL C DEVELOPER Comment on above: Adjustment disorder with mixed anxiety and depressed mood ; Marital problems Start: 11-15-2024 End: 11-15-2024 Psychotherapy w/patient 45 minutes Adjustment disorder with mixed anxiety and depressed mood Nam Mehta VISUAL C DEVELOPER Comment on above: Adjustment disorder with mixed anxiety and depressed mood ; Marital problems Start: 11-06-2024 End: 11-07-2024 Psychotherapy w/patient 60 minutes Adjustment disorder with mixed anxiety and depressed mood Nam Mehta VISUAL C DEVELOPER Comment on above: Adjustment disorder with mixed anxiety and depressed mood ; Marital problems Start: 10-25-2024 End: 10-26-2024 Psychotherapy w/patient 45 minutes Adjustment disorder with mixed anxiety and depressed mood Nam Cuevasi VISUAL C DEVELOPER Comment on above: Adjustment disorder with mixed anxiety and depressed mood ; Marital problems Start: 10-19-2024 End: 10-19-2024 Psychotherapy w/patient 45 minutes Adjustment disorder with mixed anxiety and depressed mood Nam Cuevasi VISUAL C DEVELOPER Comment on above: Adjustment disorder with mixed anxiety and depressed mood ; Marital problems Start: 10-02-2024 [facility] CBC W AUTO DIFF BLD Generic External Data Provider Start: 09-13-2024 End: 09-13-2024 Psychotherapy w/patient 45 minutes Adjustment disorder with mixed anxiety and depressed mood (CMS/HCC) Nam Cuevasi VISUAL C DEVELOPER Comment on above: Adjustment disorder with mixed anxiety and depressed mood (CMS/HCC); Marital problems Start: 09-06-2024 End: 09-06-2024 Psychotherapy w/patient 45 minutes Adjustment disorder with mixed anxiety and depressed mood (CMS/HCC) Nam Mehta VISUAL C DEVELOPER Comment on above: Adjustment disorder with mixed anxiety and depressed mood (CMS/HCC); Marital problems Start: 08-07-2024 End: 08-07-2024 Psychotherapy w/patient 30 minutes Adjustment disorder with mixed anxiety and depressed mood (CMS/HCC) Nam Mehta VISUAL C DEVELOPER Comment on above: Adjustment disorder with mixed anxiety and depressed mood (CMS/HCC); Marital problems Start: 07-31-2024 End: 08-01-2024 Psychotherapy w/patient 45 minutes Adjustment disorder with mixed anxiety and depressed mood (CMS/HCC) Nam Mehta VISUAL C DEVELOPER Comment on above: Adjustment disorder with mixed anxiety and depressed mood (CMS/HCC); Marital problems Start: 07-27-2024 End: 07-27-2024 Psychotherapy w/patient 45 minutes Adjustment disorder with mixed anxiety and depressed mood (CMS/HCC) Nam Mehta VISUAL C DEVELOPER Comment on above: Adjustment disorder with mixed anxiety and depressed mood (CMS/HCC); Marital problems Start: 07-17-2024 End: 07-18-2024 Psychotherapy w/patient 45 minutes Adjustment disorder with mixed anxiety and depressed mood (CMS/HCC) Nam Mehta VISUAL C DEVELOPER Comment on above: Adjustment disorder with mixed anxiety and depressed mood (CMS/HCC); Marital problems Start: 07-10-2024 End: 07-10-2024 Psychotherapy w/patient 45 minutes Adjustment disorder with mixed anxiety and depressed mood (CMS/HCC) Nam Mehta VISUAL C DEVELOPER Comment on above: Adjustment disorder with mixed anxiety and depressed mood (CMS/HCC) ; Marital problems Start: 06-08-2024 STATUS COVID-19/FLU Pat matthew Garcia FELT DYEING MACHINE TENDER Work Phone: Start: 05-10-2024 Sars-cov-2 detection by dna/rna Josefina Carrillo FELT DYEING MACHINE TENDER Work Phone: Start: 04-07-2024 [facility] CBC PNL BLD AUTO Ge neric External Data Provider Start: 02-22-2024 [facility] CBC W AUTO DIFF BLD Generic External Data Provider Start: 02-07-2024 STATUS COVID-19/FLU Chr isty A Jorge FELT DYEING MACHINE TENDER Work Phone: Start: 02-03-2024 [facility] CBC PNL BLD AUTO Ge neric External Data Provider Start: 01-13-2024 [facility] CBC W AUTO DIFF BLD Generic External Data Provider Start: 12-30-2023 [facility] CBC W AUTO DIFF BLD Generic External Data Provider Start: 12-06-2023 [facility] CBC W AUTO DIFF BLD Generic External Data Provider Start: 06-02-2021 Microscopic observat ion [Identifier] in Cervix by Cyto stain Nam Mehta LPC Start: 10-12-2020 Delivery of Products of Conception, External Approach DR SUDHA BATES Start: 10-11-2020 Introduction of Horm one into Female Reproductive, Via Natural or Artificial Opening DR SUDHA BATES Plan of Treatment Date Care Activity Detail Author Start: 01-25-2026 DTaP,Tdap and Td Vaccines (3 - Td or Tdap) DTaP,Tdap and Td Vaccines (3 - Td or Tdap) [facility] Start: 01-25-2026 Urine microalbumin profile DTaP,Tdap,Td Vaccine (3 - Td or Tdap) [facility] Start: 03-27-2025 End: 03-27-2025 Social Work 03/27/2025 4:30 PM EST Social Work [facility] [address] [place] [address] Nam Mehta LPC [facility] Start: 03-13-2025 End: 03-13-2025 Social Work 03/13/2025 4:30 PM EST Social Work [facility] [address] [place] [address] Nam Mehta LPC [facility] Start: 02-01-2025 End: 02-01-2025 Social Work 02/01/2025 4:30 PM EDT Social Work [facility] [address] [place] [id number] Nam Mehta LPC [facility] Start: 01-23-2025 End: 01-23-2025 Social Work 01/23/2025 4:30 PM EDT Social Work [facility] [address] [place] [address] Nam Mehta LPC [facility] Start: 01-22-2025 End: 01-22-2025 Patient encounter procedure 01/22/2025 4:00 PM EDT Procedure Visit [facility] [address] [facility] [place] [id number] Lucrecia Sahni PA [address] [place] [address] [facility] Start: 01-16-2025 End: 01-16-2025 Social Work [facility] Comment on above: Arrived Start: 01-11-2025 End: 01-11-2025 Telemedicine consultation with patient [facility] Comment on above: Arrived Start: 12-28-2024 End: 12-28-2024 Follow-up encounter 12/28/2024 4:00 PM EDT [facility] General Surgery [address] [place] [address] Nicole Marquis APRN.DESIGN TRANSFERRER [address] [place] [id number] 3 month follow up General Surgery Comment on above: 3 month follow up Start: 12-21-2024 End: 12-21-2024 Telemedicine consultation with patient [facility] Comment on above: Arrived Start: 12-14-2024 End: 12-14-2024 Social Work 12/14/2024 4:30 PM EDT Social Work [facility] [address] [place] [address] Nam Mehta LPC [facility] Start: 12-11-2024 COVID-19 Vaccine ( season) COVID-19 Vaccine ( season) [facility] Start: 12-11-2024 Influenza vaccination [facility] Start: 11-15-2024 End: 11-15-2024 Social Work [facility] Start: 11-06-2024 End: 11-06-2024 Social Work [facility] Comment on above: Arrived Start: 10-25-2024 End: 10-25-2024 Social Work [facility] Comment on above: Arrived Start: 10-19-2024 End: 10-19-2024 Social Work 10/19/2024 4:00 PM EDT Social Work [facility] [address] [place] [address] Nam Mehta LPC [facility] Start: 10-09-2024 Influenza vaccination Influenza Vacc ine (#1) [facility] Comment on above: Postponed from 12/11 (Supply/Drug Shortage) Start: 10-02-2024 End: 10-02-2024 Social Work 10/02/2024 4:30 PM EDT Social Work [facility] [address] [place] [address] Nam Mehta LPC [facility] Start: 09-13-2024 End: 09-13-2024 Social Work [facility] Comment on above: Arrived Start: 09-06-2024 End: 09-06-2024 Social Work [facility] Comment on above: Arrived Start: 08-30-2024 End: 08-30-2024 Social Work [facility] Comment on above: Arrived Start: 08-07-2024 End: 08-07-2024 Social Work [facility] Comment on above: Arrived Start: 07-31-2024 End: 07-31-2024 Social Work [facility] Comment on above: Arrived Start: 07-27-2024 End: 07-27-2024 Telemedicine consultation with patient 07/27/2024 3:00 PM EDT Telemedicine [facility] [address] [place] [address] Nam Mehta LPC [facility] Start: 07-17-2024 End: 07-17-2024 Social Work [facility] Comment on above: Arrived Start: 07-10-2024 End: 07-10-2024 Social Work 07/10/2024 4:30 PM EDT Social Work [facility] [address] [place] [address] Nam Mehta, VISUAL C DEVELOPER Arrived [facility] Comment on above: Arrived Start: 06-19-2024 End: 06-19-2024 Social Work [facility] Comment on above: Marital problems Start: 06-15-2024 End: 06-15-2025 H. pylori antigen, stool H. pylori antigen, stool Lab Routine Diarrhea, unspecified type Expected: 06/15/2024 (Approximate), Expires: 06/15/2025 [facility] Comment on above: Expected: 06/15/2024 (Approximate), Expires: 06/15/2025 Start: 06-15-2024 End: 06-15-2025 Measurement of occult blood in single stool specimen Occult blood x 1, stool Lab Routine Diarrhea, unspecified type Expected: 06/15/2024 (Approximate), Expires: 06/15/2025 [facility] Comment on above: Expected: 06/15/2024 (Approximate), Expires: 06/15/2025 Start: 06-15-2024 End: 06-15-2025 Stool culture Stool culture Microbiology Routine Diarrhea, unspecified type Expected: 06/15/2024 (Approximate), Expires: 06/15/2025 [facility] Work Phone: Comment on above: Expected: 06/15/2024 (Approximate), Expires: 06/15/2025 Start: 06-15-2024 End: 06-15-2024 Patient encounter procedure 06/15/2024 9:00 AM EST Office Visit [facility] [address] [place] [address] Mick Garcia NP [address] [place], [place] [id number] Arrived [facility] Comment on above: Arrived Start: 06-08-2024 End: 06-08-2024 Patient encounter procedure 06/08/2024 11:00 AM EST Office Visit [facility] [address] [place] [address] Mick Garcia NP [address] [facility] [place] [address] Arrived [facility] Comment on above: Arrived Start: 06-02-2024 Screening for malign ant neoplasm of cervix [facility] Start: 2024 Screening for malign ant neoplasm of breast [facility] Start: 05-10-2024 End: 05-10-2024 Patient encounter procedure 05/10/2024 4:30 PM EST Office Visit [facility] [address] [facility] [place] [address] [employer] Josefina FELT DYEING MACHINE TENDER [address] [place], [place] [id number] Arrived [facility] Comment on above: Arrived Start: 04-27-2024 End: 04-27-2024 Admission to same day surgery center 04/27/2024 4:00 PM EST [facility] General Surgery [address] [place] [address] Nicole Marquis, LAYOUT OPERATOR.[facility] [address] [place] [address] Medical Weight Management follow w/meds General Surgery Comment on above: Medical Weight Manag ement follow w/meds Start: 04-07-2024 End: 04-07-2024 Follow-up encounter 04/07/2024 10:30 AM EST Visit (SP) Office Hematology/Oncology [address] [place] [address] [place] [address] Titus Taylor MD [address] [place] [address] [place] [address] 3 month follow up Hematology/Oncology Comment on above: 3 month follow up Start: 04-07-2024 End: 04-07-2024 Patient encounter procedure 04/07/2024 10:15 AM EST Office Visit [facility] [address] [place] [address] [place] [address] 3 month follow up [facility] Comment on above: 3 month follow up Start: 03-10-2024 End: 03-10-2024 Follow-up encounter Hematology/Oncology Comment on above: 8 week follow up lab with phlebotomy Start: 03-10-2024 End: 03-10-2024 Patient encounter procedure 03/10/2024 8:15 AM EST Office Visit [facility] [address] [place] [address] 8 week follow up lab with phlebotomy [facility] Comment on above: 8 week follow up lab with phlebotomy Start: 02-17-2024 End: 02-17-2024 ambulatory 02/17/2024 4:00 PM EST [facility] Hematology/Oncology [address] [place] [address] lab and phlebotomy x 4 Hematology/Oncology Comment on above: lab and phlebotomy x 4 Start: 02-17-2024 End: 02-17-2024 Patient encounter procedure 02/17/2024 3:45 PM EST Office Visit [facility] [address] [place] [address] lab and phlebotomy x 4 [facility] Comment on above: lab and phlebotomy x 4 Start: 02-17-2024 End: 02-16-2025 Comprehensive metabolic 2000 panel - Serum or Plasma Comprehensive metabolic panel Lab Routine Low serum calcium Expected: 02/17/2024 (Approximate), Expires: 02/16/2025 [facility] Work Phone: Comment on above: Expected: 02/17/2024 (Approximate), Expires: 02/16/2025 Start: 02-15-2024 End: 02-14-2025 Comprehensive metabolic 2000 panel - Serum or Plasma Comprehensive metabolic panel Lab Routine Hypokalemia Expected: 02/15/2024 (Approximate), Expires: 02/14/2025 [facility] [employer] Work Phone: Comment on above: Expected: 02/15/2024 (Approximate), Expires: 02/14/2025 Start: 02-15-2024 End: 02-15-2024 Patient encounter procedure 02/15/2024 9:30 AM EST Office Visit [facility] [address] [place] [address] Mick Garcia NP [address] [place] [address] Arrived [facility] Comment on above: Arrived Start: 02-03-2024 End: 02-03-2024 ambulatory 02/03/2024 4:00 PM EDT [facility] Hematology/Oncology [address] [place] [address] [place] [address] lab and phlebotomy x 4 Hematology/Oncology Comment on above: lab and phlebotomy x 4 Start: 02-03-2024 End: 02-03-2024 Patient encounter procedure [facility] Comment on above: lab and phlebotomy x 4 NO ORDERS Start: 02-03-2024 End: 05-04-2024 CBC W Auto Differential panel - Blood COMPLETE BLOOD COUNT AND DIFFERENTIAL Lab Routine Hereditary hemochromatosis (HCC) Expected: 02/03/2024, Expires: 05/04/2024 [facility] Work Phone: Comment on above: Expected: 02/03/2024 , Expires: 05/04/2024 Start: 02-02-2024 End: 02-02-2024 Admission to same day surgery center 02/02/2024 3:45 PM EDT [facility] [address] [place] [address] [address], RD [address] [place] [address] weight management recommended by [facility] Surgery Comment on above: weight management re commended by [facility] Start: 01-26-2024 End: 01-26-2024 Admission to same day surgery center 01/26/2024 4:30 PM EDT [facility] [address] [place] [address] Nicole Marquis APRN.DESIGN TRANSFERRER [address] [place] [address] 3mth f/u General Surgery Comment on above: 3mth f/u Start: 01-20-2024 End: 01-20-2024 ambulatory 01/20/2024 4:00 PM EDT Infusion Center Hematology/Oncology [address] [place] [address] lab and phlebotomy x 4 Hematology/Oncology Comment on above: lab and phlebotomy x 4 Start: 01-20-2024 End: 01-20-2024 Patient encounter procedure 01/20/2024 3:45 PM EDT Office Visit [facility] [address] [place] [address] lab and phlebotomy x 4 [facility] Comment on above: lab and phlebotomy x 4 Start: 12-30-2023 End: 12-30-2023 Patient encounter procedure 12/30/2023 9:15 AM EDT Office Visit [facility] [address] [place] [address] lab [facility] Comment on above: lab Start: 12-29-2023 End: 03-29-2024 CBC W Auto Differential panel - Blood COMPLETE BLOOD COUNT AND DIFFERENTIAL Lab Routine High total iron binding capacity Expected: 12/29/2023 (Approximate), Expires: 03/29/2024 [facility] Work Phone: Comment on above: Expected: 12/29/2023 (Approximate), Expires: 03/29/2024 Start: 12-29-2023 End: 03-29-2024 Comprehensive metabolic 2000 panel - Serum or Plasma COMPREHENSIVE METABOLIC PANEL Lab Routine High total iron binding capacity Expected: 12/29/2023 (Approximate), Expires: 03/29/2024 [facility] Comment on above: Expected: 12/29/2023 (Approximate), Expires: 03/29/2024 Start: 12-29-2023 End: 03-29-2024 Ferritin [Mass/volume] in Serum or Plasma FERRITIN Lab Routine High total iron binding capacity Expected: 12/29/2023 (Approximate), Expires: 03/29/2024 [facility] Comment on above: Expected: 12/29/2023 (Approximate), Expires: 03/29/2024 Start: 12-29-2023 End: 03-29-2024 HFE gene targeted mutation analysis in Blood or Tissue by Molecular genetics method HFE (HEMOCHROMATOSIS) Lab Routine High total iron binding capacity Expected: 12/29/2023 (Approximate), Expires: 03/29/2024 [facility] Comment on above: Expected: 12/29/2023 (Approximate), Expires: 03/29/2024 Start: 12-29-2023 End: 03-29-2024 Iron and Iron binding capacity panel - Serum or Plasma IRON AND TIBC Lab Routine High total iron binding capacity Expected: 12/29/2023 (Approximate), Expires: 03/29/2024 [facility] Comment on above: Expected: 12/29/2023 (Approximate), Expires: 03/29/2024 Start: 12-12-2023 Covid-19 Vaccine ( season) Covid-19 Vaccine () [facility] Start: 12-12-2023 Covid-19 Vaccine () Covid-19 Vaccine () [facility] Start: 12-12-2023 Influenza vaccination [facility] Start: 10-06-2023 End: 01-05-2024 25-hydroxyvitamin D3 [Mass/volume] in Serum or Plasma VITAMIN D 25 HYDROXY Lab Routine S/P laparoscopic sleeve gastrectomy Expected: 10/06/2023, Expires: 01/05/2024 [facility] Comment on above: Expected: 10/06/2023 , Expires: 01/05/2024 Start: 10-06-2023 End: 01-05-2024 CBC W Auto Differential panel - Blood COMPLETE BLOOD COUNT AND DIFFERENTIAL Lab Routine S/P laparoscopic sleeve gastrectomy Expected: 10/06/2023, Expires: 01/05/2024 [facility] Comment on above: Expected: 10/06/2023 , Expires: 01/05/2024 Start: 10-06-2023 End: 01-05-2024 Cobalamin (Vitamin B12) [Mass/volume] in Serum or Plasma VITAMIN B12 Lab Routine S/P laparoscopic sleeve gastrectomy Expected: 10/06/2023, Expires: 01/05/2024 [facility] Comment on above: Expected: 10/06/2023 , Expires: 01/05/2024 Start: 10-06-2023 End: 01-05-2024 Comprehensive metabolic 2000 panel - Serum or Plasma COMPREHENSIVE METABOLIC PANEL Lab Routine S/P laparoscopic sleeve gastrectomy Expected: 10/06/2023, Expires: 01/05/2024 [facility] Comment on above: Expected: 10/06/2023 , Expires: 01/05/2024 Start: 10-06-2023 End: 01-05-2024 Ferritin [Mass/volume] in Serum or Plasma FERRITIN Lab Routine S/P laparoscopic sleeve gastrectomy Expected: 10/06/2023, Expires: 01/05/2024 [facility] Comment on above: Expected: 10/06/2023 , Expires: 01/05/2024 Start: 10-06-2023 End: 01-05-2024 Folate [Mass/volume] in Serum or Plasma FOLATE, SERUM Lab Routine S/P laparoscopic sleeve gastrectomy Expected: 10/06/2023, Expires: 01/05/2024 [facility] Comment on above: Expected: 10/06/2023 , Expires: 01/05/2024 Start: 10-06-2023 End: 01-05-2024 Hemoglobin A1c in Blood HEMOGLOBIN A1C Lab Routine S/P laparoscopic sleeve gastrectomy Expected: 10/06/2023, Expires: 01/05/2024 [facility] Comment on above: Expected: 10/06/2023 , Expires: 01/05/2024 Start: 10-06-2023 End: 01-05-2024 Insulin [Units/volume] in Serum or Plasma INSULIN ASSAY BLOOD Lab Routine S/P laparoscopic sleeve gastrectomy Expected: 10/06/2023, Expires: 01/05/2024 [facility] Comment on above: Expected: 10/06/2023 , Expires: 01/05/2024 Start: 10-06-2023 End: 01-05-2024 Iron and Iron binding capacity panel - Serum or Plasma IRON AND TIBC Lab Routine S/P laparoscopic sleeve gastrectomy Expected: 10/06/2023, Expires: 01/05/2024 [facility] Comment on above: Expected: 10/06/2023 , Expires: 01/05/2024 Start: 10-06-2023 End: 01-05-2024 Lipid 1996 panel - Serum or Plasma LIPID PANEL BASIC Lab Routine S/P laparoscopic sleeve gastrectomy Expected: 10/06/2023, Expires: 01/05/2024 [facility] Work Phone: Comment on above: Expected: 10/06/2023 , Expires: 01/05/2024 Start: 10-06-2023 End: 01-05-2024 Parathyrin.intact [Mass/volume] in Serum or Plasma PTH INTACT Lab Routine S/P laparoscopic sleeve gastrectomy Expected: 10/06/2023, Expires: 01/05/2024 [facility] Comment on above: Expected: 10/06/2023 , Expires: 01/05/2024 Start: 10-06-2023 End: 01-05-2024 Thyrotropin [Units/volume] in Serum or Plasma THYROID STIMULATING HORMONE Lab Routine S/P laparoscopic sleeve gastrectomy History of hypothyroidism Expected: 10/06/2023, Expires: 01/05/2024 [facility] Comment on above: Expected: 10/06/2023 , Expires: 01/05/2024 Start: 10-06-2023 End: 01-05-2024 VITAMIN B1 (THIAMINE), WHOLE BLOOD VITAMIN B1 (THIAMINE), WHOLE BLOOD Lab Routine S/P laparoscopic sleeve gastrectomy Expected: 10/06/2023, Expires: 01/05/2024 [facility] Comment on above: Expected: 10/06/2023 , Expires: 01/05/2024 Start: 09-17-2023 Screening for malign ant neoplasm of cervix [facility] Start: 05-19-2023 End: 05-19-2023 Patient encounter procedure 05/19/2023 8:30 AM EST Office Visit ELSA MATHEW [address] [place] [id number] Josefina Carrillo NP [address] [place] [address] Arrived [facility] Comment on above: Arrived Start: 04-12-2023 Behavioral Health Screening Behavioral Health Screening [facility] Start: 04-12-2023 Depression Assessment Depression Ass essment [facility] Start: 12-11-2022 Covid-19 Vaccine ( season) Covid-19 Vaccine () [facility] Start: 12-11-2022 Influenza vaccination [facility] Start: 10-28-2022 End: 12-28-2022 25-hydroxyvitamin D3 [Mass/volume] in Serum or Plasma VITAMIN D 25 HYDROXY Lab Routine Class 1 obesity with body mass index (BMI) of 32.0 to 32.9 in adult, unspecified obesity type, unspecified whether serious comorbidity present S/P laparoscopic sleeve gastrectomy Expected: 10/28/2022, Expires: 12/28/2022 [facility] Work Phone: Comment on above: Expected: 10/28/2022 , Expires: 12/28/2022 Start: 10-28-2022 End: 12-28-2022 CBC W Auto Differential panel - Blood CBC + DIFF Lab Routine Class 1 obesity with body mass index (BMI) of 32.0 to 32.9 in adult, unspecified obesity type, unspecified whether serious comorbidity present S/P laparoscopic sleeve gastrectomy Expected: 10/28/2022, Expires: 12/28/2022 [facility] Work Phone: Comment on above: Expected: 10/28/2022 , Expires: 12/28/2022 Start: 10-28-2022 End: 12-28-2022 Cobalamin (Vitamin B12) [Mass/volume] in Serum or Plasma VITAMIN B12 BLOOD Lab Routine Class 1 obesity with body mass index (BMI) of 32.0 to 32.9 in adult, unspecified obesity type, unspecified whether serious comorbidity present S/P laparoscopic sleeve gastrectomy Expected: 10/28/2022, Expires: 12/28/2022 [facility] Work Phone: Comment on above: Expected: 10/28/2022 , Expires: 12/28/2022 Start: 10-28-2022 End: 12-28-2022 Comprehensive metabolic 2000 panel - Serum or Plasma COMP METABOLIC PANEL Lab Routine Class 1 obesity with body mass index (BMI) of 32.0 to 32.9 in adult, unspecified obesity type, unspecified whether serious comorbidity present S/P laparoscopic sleeve gastrectomy Expected: 10/28/2022, Expires: 12/28/2022 [facility] Work Phone: Comment on above: Expected: 10/28/2022 , Expires: 12/28/2022 Start: 10-28-2022 End: 12-28-2022 Ferritin [Mass/volume] in Serum or Plasma FERRITIN BLD Lab Routine Class 1 obesity with body mass index (BMI) of 32.0 to 32.9 in adult, unspecified obesity type, unspecified whether serious comorbidity present S/P laparoscopic sleeve gastrectomy Expected: 10/28/2022, Expires: 12/28/2022 [facility] Work Phone: Comment on above: Expected: 10/28/2022 , Expires: 12/28/2022 Start: 10-28-2022 End: 12-28-2022 Folate [Mass/volume] in Serum or Plasma FOLATE SERUM Lab Routine Class 1 obesity with body mass index (BMI) of 32.0 to 32.9 in adult, unspecified obesity type, unspecified whether serious comorbidity present S/P laparoscopic sleeve gastrectomy Expected: 10/28/2022, Expires: 12/28/2022 [facility] Work Phone: Comment on above: Expected: 10/28/2022 , Expires: 12/28/2022 Start: 10-28-2022 End: 12-28-2022 Hemoglobin A1c in Blood HGB A1C Lab Routine Class 1 obesity with body mass index (BMI) of 32.0 to 32.9 in adult, unspecified obesity type, unspecified whether serious comorbidity present S/P laparoscopic sleeve gastrectomy Expected: 10/28/2022, Expires: 12/28/2022 [facility] Work Phone: Comment on above: Expected: 10/28/2022 , Expires: 12/28/2022 Start: 10-28-2022 End: 12-28-2022 Insulin [Units/volume] in Serum or Plasma INSULIN ASSAY BLOOD Lab Routine Class 1 obesity with body mass index (BMI) of 32.0 to 32.9 in adult, unspecified obesity type, unspecified whether serious comorbidity present S/P laparoscopic sleeve gastrectomy Expected: 10/28/2022, Expires: 12/28/2022 [facility] Work Phone: Comment on above: Expected: 10/28/2022 , Expires: 12/28/2022 Start: 10-28-2022 End: 12-28-2022 Iron and Iron binding capacity panel - Serum or Plasma IRON + TIBC Lab Routine Class 1 obesity with body mass index (BMI) of 32.0 to 32.9 in adult, unspecified obesity type, unspecified whether serious comorbidity present S/P laparoscopic sleeve gastrectomy Expected: 10/28/2022, Expires: 12/28/2022 [facility] Work Phone: Comment on above: Expected: 10/28/2022 , Expires: 12/28/2022 Start: 10-28-2022 End: 12-28-2022 Lipid 1996 panel - Serum or Plasma LIPID PANEL BASIC Lab Routine Class 1 obesity with body mass index (BMI) of 32.0 to 32.9 in adult, unspecified obesity type, unspecified whether serious comorbidity present S/P laparoscopic sleeve gastrectomy Expected: 10/28/2022, Expires: 12/28/2022 [facility] Work Phone: Comment on above: Expected: 10/28/2022 , Expires: 12/28/2022 Start: 10-28-2022 End: 12-28-2022 Parathyrin.intact [Mass/volume] in Serum or Plasma PTH INTACT BLD Lab Routine Class 1 obesity with body mass index (BMI) of 32.0 to 32.9 in adult, unspecified obesity type, unspecified whether serious comorbidity present S/P laparoscopic sleeve gastrectomy Expected: 10/28/2022, Expires: 12/28/2022 [facility] Work Phone: Comment on above: Expected: 10/28/2022 , Expires: 12/28/2022 Start: 10-28-2022 End: 12-28-2022 Thyrotropin [Units/volume] in Serum or Plasma TSH BLD Lab Routine Class 1 obesity with body mass index (BMI) of 32.0 to 32.9 in adult, unspecified obesity type, unspecified whether serious comorbidity present S/P laparoscopic sleeve gastrectomy Expected: 10/28/2022, Expires: 12/28/2022 [facility] Work Phone: Comment on above: Expected: 10/28/2022 , Expires: 12/28/2022 Start: 10-28-2022 End: 12-28-2022 VITAMIN B1 (THIAMINE), WHOLE BLOOD VITAMIN B1 (THIAMINE), WHOLE BLOOD Lab Routine Class 1 obesity with body mass index (BMI) of 32.0 to 32.9 in adult, unspecified obesity type, unspecified whether serious comorbidity present S/P laparoscopic sleeve gastrectomy Expected: 10/28/2022, Expires: 12/28/2022 [facility] Work Phone: Comment on above: Expected: 10/28/2022 , Expires: 12/28/2022 Start: 04-12-2022 DEPRESSION ASSESSMENT DEPRESSION ASS ESSMENT [facility] Start: 06-16-2021 COVID-19 VACCINE (3 - Booster for Leidy series) COVID-19 VACCINE (3 - Booster for Leidy series) [facility] Start: 2014 HPV TESTING HPV TESTING [facility] Start: 2014 Screening for malign ant neoplasm of cervix HPV Testing [facility] Start: 2011 HPV Vaccine (1 - 3-d ose SCDM series) HPV Vaccine (1 - 3-dose SCDM series) [facility] Start: 2005 PAP TESTING PAP TESTING [facility] Start: 2005 Screening for malign ant neoplasm of cervix [facility] Start: 2003 Urine microalbumin profile [facility] Start: 02-19-2003 Hepatitis B Vaccine (3 of 3 - 3-dose series) Hepatitis B Vaccine (3 of 3 - 3-dose series) [facility] Start: 2002 Adult BMI Screening Adult BMI Screen ing [facility] Start: 2002 Annual PCP Team Shopper Marketing Manager danyelle Disease Visit Annual PCP Team Chronic Disease Visit [facility] Start: 2002 Depression Screening Depression Scre ening [facility] Start: 2002 HEPATITIS C SCREENING HEPATITIS C [facility] Start: 2002 Hepatitis C screening Hepatitis C [facility] Start: 2002 HIV SCREENING HIV SCREENING [facility] Start: 2002 HIV screening HIV Screening [facility] Start: 1996 Depression Screening Depression Scre [place] [facility] Start: 1996 Tobacco Screening Tobacco Screening [facility] Start: 1984 HEPATITIS B (1 of 3 - 3-dose series) HEPATITIS B (1 of 3 - 3-dose series) [facility] Start: 1984 Hepatitis B Vaccine (1 of 3 - 3-dose series) Hepatitis B Vaccine (1 of 3 - 3-dose series) [facility] End: 02-01-2025 CBC panel - Blood by Automated count COMPLETE BLOOD COUNT Lab Routine Hereditary hemochromatosis (HCC) Every other week for 2 Occurrences starting 02/02/2024 until 02/01/2025 [facility] Work Phone: Comment on above: Every other week for 2 Occurrences starting 02/02/2024 until 02/01/2025 Malcolm Anna c Immunizations Immunization Date Immunization Notes Care Provider Evita amaya 01-19-2025 Immunization, In Clinic,; Translations: [Drug or medicament (substance)] Ppep Nurse [facility] Work Phone: 01-18-2025 influenza, injectabl e, madin alejandrina canine kidney, preservative free Ppep Nurse [facility] 01-19-2022 influenza, injectabl e, quadrivalent, preservative free Nicole Louden LAYOUT OPERATOR.DESIGN TRANSFERRER Work Phone: [facility] Work Phone: 01-19-2022 influenza virus vacc ine, unspecified formulation Nicole Louden LAYOUT OPERATOR.DESIGN TRANSFERRER Work Phone: [facility] 03-18-2021 influenza, injectabl e, quadrivalent, preservative free Nicole Louden LAYOUT OPERATOR.DESIGN TRANSFERRER Work Phone: [facility] Work Phone: 02-10-2018 influenza, injectabl e, quadrivalent, contains preservative Nicole Louden LAYOUT OPERATOR.DESIGN TRANSFERRER Work Phone: [facility] Work Phone: 12-17-2016 influenza, injectabl e, quadrivalent, preservative free Nicole Louden LAYOUT OPERATOR.DESIGN TRANSFERRER Work Phone: [facility] 12-17-2016 influenza virus vacc ine, unspecified formulation Nicole Louden LAYOUT OPERATOR.DESIGN TRANSFERRER Work Phone: [facility] 01-26-2016 tetanus toxoid, redu chris diphtheria toxoid, and acellular pertussis vaccine, adsorbed Nicole Louden LAYOUT OPERATOR.DESIGN TRANSFERRER Work Phone: [facility] Work Phone: 01-25-2016 influenza, injectabl e, quadrivalent, preservative free Nicole Louden LAYOUT OPERATOR.DESIGN TRANSFERRER Work Phone: [facility] Work Phone: 03-04-2015 influenza, seasonal, injectable, preservative free Nicole Louden LAYOUT OPERATOR.DESIGN TRANSFERRER Work Phone: [facility] Work Phone: 05-12-2013 influenza, seasonal, injectable Nicole Louden LAYOUT OPERATOR.DESIGN TRANSFERRER Work Phone: [facility] Work Phone: 05-12-2013 influenza, seasonal, injectable, preservative free Josefina Mcfarlaneisiscarlitos Work Phone: [facility] 04-28-2012 influenza virus vacc ine, whole virus Nicole Louden LAYOUT OPERATOR.DESIGN TRANSFERRER Work Phone: [facility] Work Phone: 01-03-2003 TD(adult) unspecifie d formulation Nicole Louden LAYOUT OPERATOR.DESIGN TRANSFERRER Work Phone: [facility] Work Phone: 12-25-2002 hepatitis B vaccine, pediatric or pediatric/adolescent dosage Nicole Louden LAYOUT OPERATOR.DESIGN TRANSFERRER Work Phone: [facility] Work Phone: 12-13-2002 meningococcal polysaccharide vaccine (MPSV4) Nicole Louden LAYOUT OPERATOR.DESIGN TRANSFERRER Work Phone: [facility] Work Phone: 10-08-2002 hepatitis B vaccine, pediatric or pediatric/adolescent dosage Nicole Louden LAYOUT OPERATOR.DESIGN TRANSFERRER Work Phone: [facility] Work Phone: Payers Date Payer Category Payer Unknown [id number] 2022 Blue Cross Blue Shield [id number] 2021 Private Health Insurance [id number] [id number] 2021 Unknown [id number]. 1.13.159. [id number] 2020 Blue Cross [employer] Managed Care - PPO ANTHEM [id number]. [id number] 2020 Commercial Managed C are - PPO [employer] [id number]. [id number] 1984 Unknown [id number] 2.16.840.1.316826.3.579. 2.593 1984 Unknown [id number] 2.16.840.1.474747.3.579. 2.593 1984 Unknown [id number] 2.16.840.1.350225.3.579. 2.593 1984 Unknown [id number] 2.16.840.1.853542.3.579. 2.593 1984 Unknown [id number] 2.16.840.1.509050.3.579. 2.593 1984 Unknown [id number] 2.16.840.1.145997.3.579. 2.593 1984 Unknown [id number] 2.16.840.1.391746.3.579. 2.593 1984 Unknown [id number] 2.16.840.1.767634.3.579. 2.593 1984 Unknown [id number] 2.16.840.1.669916.3.579. 2.593 1984 Unknown [id number] 2.16.840.1.362744.3.579. 2.593 1984 Unknown [id number] 2.16.840.1.559672.3.579. 2.593 1984 Unknown [id number] 2.16.840.1.849528.3.579. 2.593 1984 Unknown [id number] 2.16.840.1.286317.3.579. 2.593 1984 Unknown [id number] 2.16.840.1.482808.3.579. 2.593 1984 Unknown [id number] 2.16.840.1.702239.3.579. 2.593 1984 Unknown [id number] 2.16.840.1.296238.3.579. 2.593 1984 Unknown [id number] 2.16.840.1.900894.3.579. 2.718 1984 Unknown [id number] 2.16.840.1.766140.3.579. 2.8 1984 Unknown [id number] 2.16.840.1.121998.3.579. 2. 1984 Unknown [id number] 2.16.840.1.155129.3.579. 2. 1984 Unknown [id number] 2.16.840.1.383282.3.579. 2.1286 1984 Unknown [id number] 2.16.840.1.398966.3.579. 2.1258 1984 Unknown [id number] 2.16.840.1.063155.3.579. 2.1258 1984 Unknown [id number] 2.16.840.1.164513.3.579. 2.1258 1984 Unknown [id number] 2.16.840.1.262243.3.579. 2.1258 1984 Unknown [id number] 2.16.840.1.316512.3.579. 2.1258 1984 Unknown [id number] 2.16.840.1.456764.3.579. 2.1258 1984 Unknown [id number] 2.16.840.1.916647.3.579. 2.1258 1984 Unknown [id number] 2.16.840.1.803872.3.579. 2.1258 1984 Unknown [id number] 2.16.840.1.749434.3.579. 2.1258 1984 Unknown [id number] 2.16.840.1.471316.3.579. 2.1259 1984 Unknown [id number] 2.16.840.1.553653.3.579. 2.1259 1984 Unknown [id number] 2.16.840.1.075194.3.579. 2.1258 1984 Unknown [id number] 2.16.840.1.582234.3.579. 2.1258 1984 Unknown [id number] 2.16.840.1.640712.3.579. 2.1258 1984 Unknown [id number] 2.16.840.1.549709.3.579. 2.1258 1984 Unknown [id number] 2.16.840.1.551455.3.579. 2.1258 1984 Unknown [id number] 2.16.840.1.193575.3.579. 2.1258 1984 Unknown [id number] 2.16.840.1.129757.3.579. 2.1258 1984 Unknown [id number] 2.16.840.1.778314.3.579. 2.1258 1984 Unknown [id number] 2.16.840.1.389449.3.579. 2.1258 1984 Unknown [id number] 2.16.840.1.128857.3.579. 2.1258 1984 Unknown [id number] 2.16.840.1.618243.3.579. 2.1258 1984 Unknown [id number] 2.16.840.1.770396.3.579. 2.9 1959 Unknown [id number] 1959 Unknown [id number] 1959 Unknown [id number] Social History Date Type Detail Facility Start: 11-20-2016 End: 09-22-2023 Tobacco smoking status NHIS Ex-smoker [facility] Start: 04-12-2000 End: 04-12-2014 History of tobacco use Current smoker [facility] Start: 04-12-2000 End: 04-12-2014 History of tobacco use Cigarette Smoker [facility] Start: 11-20-2016 End: 02-07-2024 Cigarettes smoked current (pack per day) - Reported 2 [facility] Start: 11-20-2016 End: 09-22-2023 Tobacco use and exposure Smokeless tobacco non-user [facility] Start: 10-28-2022 End: 12-21-2024 Alcohol intake Current non-drinker of alcohol (finding) [facility] Start: 10-28-2022 End: 02-07-2024 Tobacco use panel [facility] Start: 05-05-2016 End: 06-24-2022 National Score (1-100), lower number is lower risk 71 [facility] Start: 1984 [facility]: 03-31-2023 End: 06-15-2024 Alcohol intake Ex-drinker (finding) [facility] Within the last year , have you been afraid of your partner or ex-partner? No [facility] Are you now , , , , never or living with a partner? [facility] How often to you hav e a drink containing alcohol? Never [facility] Do you feel stress - tense, restless, nervous, or anxious, or unable to sleep at night because your mind is troubled all the time - these days [OSQ] Not at all [facility] (I/We) worried wheth er (my/our) food would run out before (I/we) got money to buy more. Never true [facility] Start: 03-31-2023 Alcohol Comment Caffeine intak e: 2 cups per day coffee, tea [facility] Start: 05-19-2023 Alcohol Comment Caffeine intak e: 2-3 cups per day coffee, tea [facility] Start: 10-22-2023 Alcohol Comment Caffeine intak e: 4-5 coffee daily [facility] Tobacco smoking stat us WIIS Tobacco smoking consumption unknown [facility] Start: 11-15-2014 Sex Female (finding) [facility] Functional Status Date Assessment Result Facility 12-18-2016 Are you deaf, or do you have serious difficulty hearing No 12/18/2016 1:49 PM QUIANAT Elayne Page APRN.DESIGN TRANSFERRER No [facility] Work Phone: 12-18-2016 Are you blind, or do you have serious difficulty seeing, even when wearing glasses No 12/18/2016 1:49 PM EDT Elayne Page APRN.CNP [facility] 12-18-2016 Do you have serious difficulty walking or climbing stairs No 12/18/2016 1:49 PM EDT Elayne Page APRN.CNP [facility] 12-18-2016 Do you have difficul ty dressing or bathing No 12/18/2016 1:49 PM EDT Elayne Page APRN.CNP [facility] 12-18-2016 Because of a physica l, mental, or emotional condition, do you have difficulty doing errands alone such as visiting a physician's office or shopping No 12/18/2016 1:49 PM EDT Elayne Page APRN.CNP [facility] Mental Status Date Assessment Result Facility 12-18-2016 Because of a physica l, mental, or emotional condition, do you have serious difficulty concentrating, remembering, or making decisions No 12/18/2016 1:49 PM EDT Elayne Page APRN.CNP No [facility] Clinical Notes 06-27-2020 to 12-28-2024 Telephone Encounter - Cinda Cook LPN - 12/21/2024 10:28 AM EDTTelephone Encounter - Cinda Cook LPN - 12/21/2024 10:28 AM EDTPatient Dilan Carrillo NP - 05/10/2024 4:30 PM EST Note Date & Type Note Facility 12-28-2024 Note HNO ID: [id number] Author: NICOLE MARQUIS APRN.CNP Service: ? Author Type: Nurse Practitioner Type: Progress Notes Filed: 12/28/2024 16:24 Note Text: BMI Obesity Medicine PostOp Follow Up Visit Distance [facility] Visit December 28, 2024 Recording using [employer] software for draft documentation of the visit was discussed with the patient/authorized account executive sales representative; all questions welcomed and answered. Patient/authorized account executive sales representative agreed to proceed I have communicated my name and active licensure. The patient's identity and physical location were verified at the time of this visit. Either the patient or their legal account executive sales representative has been informed of the risks [...] PROCEDURE Visit: 5 years Today's Visit: BMI 25.43 kg/(m2) COMPLICATIONS SINCE LAST VISIT?: NONE Found to have hemochromatosis BEKA: Allan Burr is a 39 year old female s/p Sleeve gastrectomy on12/17/2016 who responded well to surgery, losing approximately 25% of her total body weight. Post-OP course complicated by weight recurrence after 2 pregnancies.. Nearly all of her weight-related medical comorbidities have resolved or improved after surgery. Body mass index is 25.28 kg/m?.) She has been complaint with her vitamin and mineral supplementation. Diet and exercise habits as above. Asymptomatic, taking required supplements as recommended, no signs or symptoms of vitamin deficiency. She continues to be motivated to lose weight. Agreeable to continuing Zepbound. Will write for Wegovy in case insurance denies. Would prefer Zepbound because she has experienced less side effects. F/b hepatology for hemochromatosis. Total weight loss of 45 lb of highest/initial weight or 22% of total body weight. Plan: EDUCATION: Encouraged to continue with healthy lifestyle changes and incorporate cardiovascular and resistance training, Discussed weight loss expectations after bariatric and metabolic surgery, Advised PT to avoid NSAIDs, smoking tobacco given increased risk of marginal ulcers, Compliant w/ bariatric vitamins. 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 History of obesity (Z86.39) - Currently on Zepbound 12.5 mg with one dose remaining; experiencing increased hunger and weight plateau at 159-160 lbs. - Previous trial of Wegovy resulted in nausea at higher doses; patient has a box of Wegovy at home. - Transitioning from Zepbound to Wegovy 1.7 mg; provided Zofran for potential side effects. - Advised to monitor for severe side effects and report if necessary; will consider reducing dose to 1 mg if intolerable. - Discussed potential future options, including oral semaglutide and other GLP-1 receptor agonists in development. - Patient understands and agrees with the treatment plan. 2. S/P laparoscopic sleeve gastrectomy (Z98.84) - No recent sleep apnea testing since before the sleeve gastrectomy in 2016. - Discussed that current mild sleep apnea is not a clinical indication for Zepbound coverage. - Patient understands the need for potential future sleep studies if symptoms persist or worsen. 3. PCOS (polycystic ovarian syndrome) (E28.2) 4. Mild obstructive sleep apnea (G47.33) Interval History Last visit was with me in October. Weight Management: - Allan Burr's current weight: 163 lbs. - Allan previously lost weight with Zepbound, reaching 154 lbs. - Allan's weight increased to 163 lbs after starting Wegovy 1.7 mg. - Wegovy 2.4 mg caused severe side effects: abdominal pain, nausea, fatigue, headaches, and ecchymosis on Allan's fingers. - Reduced to Wegovy 1.7 mg, administered in the thigh, with less severe side effects but no appetite suppression for Allan. - Allan prefers Zepbound over Wegovy due to fewer side effects. - Allan is taking Zofran to manage nausea from Wegovy. Weight increased on the 1.7 mg dose, but can't tolerated the side effects of the Wegovy and is gaining weight. Weight is decreased since last visit. AOM Hx: Was going to a [email or web address] spa and getting semaglutide injections, but it is costly. Metformin - GI upset Contrave SE- bad dreams, felt like she was in a haze Topiramate took when she was younger for migraines Had kidney stone while . Alexa (more content not included)... [facility] 12-21-2024 Telephone encounter Note BEKA 10/02/24 NOV 12/28/24 Refill request for Zofran Refill forwarded to Nicole Marquis APRN for approval. [facility] 12-21-2024 Miscellaneous Notes BEKA 10/02/24 NOV 12/28/24 Refill request for Zofran Refill forwarded to Nicole Marquis APRN for approval. documented in this encounter [facility] 10-25-2024 Instructions Nicole Marquis APRN.DESIGN TRANSFERRER - 10/25/2024 4:18 PM EDT - Continue taking phentermine exactly as you ve been doing: tablet at 4:30 AM and tablet at 10 AM daily. You may shift the timing later if you re not hungry early. Fill at [facility] and pay out of pocket if insurance won t cover. - We sent a refill request for your 12.5 mg Zepbound dose to [facility] so you ll have one last shot before your insurance stops covering it on October 10. - After Zepbound coverage ends, transition to Wegovy: start with 1 mg weekly for one month, then increase to 1.7 mg weekly (and potentially up to 2.4 mg later). We sent that prescription to [facility]. - Take Zofran as needed to prevent nausea when you begin Wegovy. - If you develop significant side effects on 1.7 mg Wegovy, contact us right away so we can lower your dose back to 1 mg. - To help with constipation on higher Wegovy doses, consider taking two Colace capsules daily as needed. - Continue your current iron-free vitamin regimen. - If you run into any insurance-coverage issues or have severe side effects, please reach out to our office for assistance. documented in this encounter [facility] 10-02-2024 Note HNO ID: [id number] Author: NICOLE MARQUIS APRN.SULAIMAN Service: ? Author Type: Nurse Practitioner Type: Progress Notes Filed: 10/25/2024 16:25 Note Text: BMI Obesity Medicine PostOp Follow Up Visit [facility] Visit October 25, 2024 Recording using ambient CleanEdison software for draft documentation of the visit was discussed with the patient/authorized account executive sales representative; all questions welcomed and answered. Patient/authorized account executive sales representative agreed to proceed I have communicated my name and active licensure. The patient's identity and physical location were verified at the time of this visit. Either the patient or their legal account executive sales representative has been informed of the risks [...] PROCEDURE Visit: 5 years Today's Visit: BMI 25.28 kg/(m2) COMPLICATIONS SINCE LAST VISIT?: NONE Found to have hemochromatosis BEKA: Allan Burr is a 39 year old female s/p Sleeve gastrectomy on12/17/2016 who responded well to surgery, losing approximately 25% of her total body weight. Post-OP course complicated by weight recurrence after 2 pregnancies.. Nearly all of her weight-related medical comorbidities have resolved or improved after surgery. Body mass index is 25.28 kg/m?.) She has been complaint with her vitamin and mineral supplementation. Diet and exercise habits as above. Asymptomatic, taking required supplements as recommended, no signs or symptoms of vitamin deficiency. She continues to be motivated to lose weight. Agreeable to increase Zepbound and continue phentermine 1/2 tablet in the morning as needed. F/b hepatology for hemochromatosis. Plan: EDUCATION: Encouraged to continue with healthy lifestyle changes and incorporate cardiovascular and resistance training, Discussed weight loss expectations after bariatric and metabolic surgery, Advised PT to avoid NSAIDs, smoking tobacco given increased risk of marginal ulcers, Compliant w/ bariatric vitamins. 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 Obesity: - Currently taking Zepbound 12.5 mg and phentermine 15 mg BID. - Insurance will no longer cover Zepbound as of October 10; previously had a pre-approval. - Allan has one Zepbound injection left; took the most recent dose this morning. - Previously used Wegovy; experienced nausea at higher doses. - Current weight is 159-160 lbs; goal weight is 150 lbs. - Insurance does not cover phentermine, but it is affordable [id number]. - Allan has a box of Wegovy in the refrigerator; unsure of the dose. - History of mild sleep apnea; last sleep study was in 2017 before sleeve surgery. Iron Levels: - Iron levels have been high; last check was normal. - Taking iron-free vitamins. 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 Doing well. Less side effects with Zepbound. Weight is decreased since last visit. AOM Hx: Was going to a med spa and getting semaglutide injections, but it is costly. Metformin - GI upset Contrave SE- bad dreams, felt like she was in a haze Topiramate took when she was younger for migraines Had kidney stone while . Wegovy Side effects: nausea, fatigue Benefit: Reduction of appetite and Increased satiety Started: 2022 Starting weight: 208 lbs Tirzepatide (Zepbound) 12.5 mg Side effects: denies Benefit: Reduction of cravings, Increased satiety Started: 2023 Starting weight: 181 lbs Diet: Increasing water intake Saw Leigha Lake RD Exercise: increased Sleep: mild PILAR, not on CPAP Taking required vitamins and minerals: Yes One-a-day iron free Calcium: No Multivitamin AND Minerals: 1 per day Iron Supplement: No Vitamin B12: included in multivitamin Vitamin D3: included in multi-vitamin Other: N/A Are you attending any Support Groups? Not known Current Outpatient Medications Medication Sig ondansetron (ZOFRAN) 4 mg tablet TAKE 1 TABLET B (more content not included)... [facility] 10-02-2024 History of Presen t illness Narrative Images from the original note were not included. BMI Obesity Medicine PostOp Follow Up Visit [facility] Visit October 25, 2024 Recording using ambient AI software for draft documentation of the visit was discussed with the patient/authorized account executive sales representative; all questions welcomed and answered. Patient/authorized account executive sales representative agreed to proceed I have communicated my name and active licensure. The patient's identity and physical location were verified at the time of this visit. Either the patient or their legal account executive sales representative has been informed of the risks [...] PROCEDURE Visit: 5 years Today's Visit: BMI 25.28 kg/(m^2) COMPLICATIONS SINCE LAST VISIT?: NONE Found to have hemochromatosis BEKA: Allan Burr is a 39 year old female s/p Sleeve gastrectomy on12/17/2016 who responded well to surgery, losing approximately 25% of her total body weight. Post-OP course complicated by weight recurrence after 2 pregnancies.. Nearly all of her weight-related medical comorbidities have resolved or improved after surgery. Body mass index is 25.28 kg/m .) She has been complaint with her vitamin and mineral supplementation. Diet and exercise habits as above. Asymptomatic, taking required supplements as recommended, no signs or symptoms of vitamin deficiency. She continues to be motivated to lose weight. Agreeable to increase Zepbound and continue phentermine 1/2 tablet in the morning as needed. F/b hepatology for hemochromatosis. Plan: EDUCATION: Encouraged to continue with healthy lifestyle changes and incorporate cardiovascular and resistance training, Discussed weight loss expectations after bariatric and metabolic surgery, Advised PT to avoid NSAIDs, smoking tobacco given increased risk of marginal ulcers, Compliant w/ bariatric vitamins. 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 Obesity: - Currently taking Zepbound 12.5 mg and phentermine 15 mg BID. - Insurance will no longer cover Zepbound as of October 10; previously had a pre-approval. - Allan has one Zepbound injection left; took the most recent dose this morning. - Previously used Wegovy; experienced nausea at higher doses. - Current weight is 159-160 lbs; goal weight is 150 lbs. - Insurance does not cover phentermine, but it is affordable [id number]. - Allan has a box of Wegovy in the refrigerator; unsure of the dose. - History of mild sleep apnea; last sleep study was in 2017 before sleeve surgery. Iron Levels: - Iron levels have been high; last check was normal. - Taking iron-free vitamins. 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 Doing well. Less side effects with Zepbound. Weight is decreased since last visit. AOM Hx: Was going to a med spa and getting semaglutide injections, but it is costly. Metformin - GI upset Contrave SE- bad dreams, felt like she was in a haze Topiramate took when she was younger for migraines Had kidney stone while . Wegovy Side effects: nausea, fatigue Benefit: Reduction of appetite and Increased satiety Started: 2022 Starting weight: 208 lbs Tirzepatide (Zepbound) 12.5 mg Side effects: denies Benefit: Reduction of cravings, Increased satiety Started: 2023 Starting weight: 181 lbs Diet: Increasing water intake Saw Leigha Lake, RD Exercise: increased Sleep: mild PILAR, not on CPAP Taking required vitamins and minerals: Yes One-a-day iron free Calcium: No Multivitamin & Minerals: 1 per day Iron Supplement: No Vitamin B12: included in multivitamin Vitamin D3: included in multi-vitamin Other: N/A Are you attending any Support Groups? Not known Current Outpatient Medications Medication Sig ondansetron (ZOFRAN) 4 mg tablet TAKE 1 TABLET BY MOUTH EVERY 6 HOURS NEEDED MULTIVITAMIN ORAL Take by mouth. Lactobacillus acidophilus (PROBIOTIC ORAL) Take by mouth. multivit-min/iron/folic/[id number] (HAIR, SKIN AND NAILS ADVANCED ORAL) Take by mouth. calcium polycarbophil (FIBERCON ORAL) Take by mouth. L-NORGEST/E.ESTRADIOL-E.ESTRAD (AMETHIA ORAL) Take 1 tablet by mouth once daily. tirzepatide, weight loss (ZEPBOUND) 12.5 mg/0.5 mL pen injector Inject 12.5 mg subcutaneously one time a week. Phentermine HCl 37.5 mg tablet Take 1 tablet by mouth once daily for 90 days. semaglutide, weight loss, (WEGOVY) 1.7 mg/0.75 mL pen injector Inject 1.7 mg subcutaneously one time a week. ondansetron orally disintegrating (ZOFRAN ODT) 4 mg disintegrating tablet Take 1 tablet by mouth every 8 hours as needed for nausea/vomiting. omeprazole (PRILOSEC) 20 mg capsule Take 1 capsule by mouth once daily. No current facility-administered medications for this visit. Patient Active Problem List Hereditary hemochromatosis Acquired hypothyroidism Intractable chronic migraine without aura and without status migrainosus Anxiety Insulin resistance syndrome Mild obstructive sleep apnea Chronic fatigue Chronic back pain Chronic joint pain Kidney stones Personal history of nicotine dependence Streptococcus B carrier state complicating childbirth (HCC) Gestational diabetes mellitus in , unspecified control (HCC) History of oligohydramnios Dorsalgia, unspecified S/P laparoscopic sleeve gastrectomy PCOS (polycystic ovarian syndrome) Resolved Hospital Problems No resolved problems to display. Social History Tobacco Use Smoking status: Former Current packs/day: 0.00 Average packs/day: 2.0 packs/day for 14.0 years (28.0 ttl pk-yrs) Types: Cigarettes Start date: 04/12/2000 Quit date: 04/12/2014 Years since quittin.5 Smokeless tobacco: Never Substance Use Topics Alcohol use: No Drug use: No ROS: Denies nausea, vomiting, dumping syndrome, reactive hypoglycemia, gustatory rhinorrhea, Denies abdominal pain, constipation, diarrhea, melena, hematochezia, Denies paresthesias, gait abnormality, fatigue, weakness, lower extremity edema. 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 Gastrointestinal: (+) increased appetite PHYSICAL EXAM: Vital Signs: BP 127/86 Pulse 88 Ht 170.5 cm (5' 7.13 ) Wt 73.5 kg (162 lb 0.6 oz) LMP 07/11/2024 (Exact Date) BMI 25.28 kg/m Body mass index is 25.28 kg/m . Physical exam: Physical Exam Constitutional: She appears healthy. Cardiovascular: Normal rate, regular rhythm and normal pulses. Pulmonary/Chest: Effort normal and breath sounds normal. She has no wheezes. Musculoskeletal: General: No edema. Neurological: She is alert and oriented to person, place, and time. Skin: No rash noted. No pallor. NAD, physical assessment not performed. Results: No [...] 12/18/2016 2.12 1.00 - 4.00 k/uL Final [place]% 12/18/2016 6.4 % Final Abs [place] 12/18/2016 0.64 0.00 - 0.86 k/uL Final [...] 2.6 (L) 2.7 - 4.8 mg/dL Final CMP Glucose (mg/dL) Date Value 10/02/2024 82 12/30/2023 88 12/18/2016 90 11/20/2016 87 Potassium (mmol/L) Date Value 10/02/2024 4.2 12/30/2023 4.2 12/18/2016 4.4 11/20/2016 4.4 Sodium (mmol/L) Date Value 10/02/2024 138 12/30/2023 138 12/18/2016 138 11/20/2016 136 Chloride (mmol/L) Date Value 10/02/2024 104 12/30/2023 106 12/18/2016 104 11/20/2016 100 CO2 (mmol/L) Date Value 10/02/2024 23 12/30/2023 25 12/18/2016 20 11/20/2016 20 Creatinine (mg/dL) Date Value 10/02/2024 0.63 12/30/2023 0.79 12/18/2016 0.51 11/20/2016 0.61 BUN (mg/dL) Date Value 10/02/2024 17 12/30/2023 16 12/18/2016 5 11/20/2016 19 Anion Gap (mmol/L) Date Value 10/02/2024 11 12/30/2023 7 12/18/2016 14 11/20/2016 16 Calcium (mg/dL) Date Value 12/18/2016 8.8 11/20/2016 9.2 Calcium, Total (mg/dL) Date Value 10/02/2024 8.5 12/30/2023 9.0 Protein, Total (g/dL) Date Value 10/02/2024 6.6 12/30/2023 6.8 11/20/2016 7.0 08/31/2016 7.4 Albumin (g/dL) Date Value 10/02/2024 4.1 12/30/2023 4.3 11/20/2016 4.1 08/31/2016 4.4 Bilirubin, Total (mg/dL) Date Value 10/02/2024 0.4 12/30/2023 0.5 11/20/2016 0.3 08/31/2016 0.5 Alkaline Phosphatase (U/L) Date Value 10/02/2024 75 12/30/2023 78 11/20/2016 100 08/31/2016 95 AST (U/L) Date Value 10/02/2024 19 12/30/2023 21 11/20/2016 26 08/31/2016 18 ALT (U/L) Date Value 10/02/2024 12 12/30/2023 18 11/20/2016 20 08/31/2016 11 CBC WBC (k/uL) Date Value 10/02/2024 7.67 RBC (m/uL) Date Value 10/02/2024 4.78 Hemoglobin (g/dL) Date Value 10/02/2024 14.6 Hematocrit (%) Date Value 10/02/2024 43.0 MCV (fL) Date Value 10/02/2024 90.0 MCH (pg) Date Value 10/02/2024 30.5 MCHC (g/dL) Date Value 10/02/2024 34.0 RDW-CV (%) Date Value 10/02/2024 11.8 Platelet Count (k/uL) Date Value 10/02/2024 284 MPV (fL) Date Value 10/02/2024 9.3 Lipid Panel Cholesterol, Total (mg/dL) Date Value 12/06/2023 188 12/18/2022 200 08/31/2016 193 HDL Cholesterol (mg/dL) Date Value 12/06/2023 52 12/18/2022 45 08/31/2016 51 LDL Cholesterol, Calculated (mg/dL) Date Value 12/06/2023 126 12/18/2022 140 08/31/2016 129 Triglyceride (mg/dL) Date Value 12/06/2023 49 12/18/2022 74 08/31/2016 65 Hgb A1C Hemoglobin A1C Date Value Ref Range Status 10/02/2024 4.5 4.3 - 5.6 % Final Comment: [place] [employer] guidelines indicate that patients with HgbA1c in the range 5.7-6.4% are at increased risk for development of diabetes, and intervention by lifestyle modification may be beneficial. HgbA1c greater or equal to 6.5% is considered diagnostic of diabetes. 12/06/2023 4.4 4.3 - 5.6 % Final Comment: [place] [employer] guidelines indicate that patients with HgbA1c in the range 5.7-6.4% are at increased risk for development of diabetes, and intervention by lifestyle modification may be beneficial. HgbA1c greater or equal to 6.5% is considered diagnostic of diabetes. 12/18/2022 4.5 4.3 - 5.6 % Final Comment: [place] [employer] guidelines indicate that patients with HgbA1c in the range 5.7-6.4% are at increased risk for development of diabetes, and intervention by lifestyle modification may be beneficial. HgbA1c greater or equal to 6.5% is considered diagnostic of diabetes. Vitamin B12 Date Value Ref Range Status 10/02/2024 853 232 - 1,245 pg/mL Final 12/06/2023 1,273 (H) 232 - 1,245 pg/mL Final Folate Date Value Ref Range Status 10/02/2024 18.3 >4.7 ng/mL Final 12/06/2023 15.5 >4.7 ng/mL Final FIB-4 Calculation: 0.77 at 10/02/2024 12:53 PM Calculated from: SGOT/AST: 19 U/L at 10/02/2024 12:53 PM SGPT/ALT: 12 U/L at 10/02/2024 12:53 PM Platelets: 284 k/uL at 10/02/2024 12:53 PM Age: 39 years ACTIVE PROBLEM LIST Pcos (Polycystic Ovarian Syndrome) S/P Laparoscopic Sleeve Gastrectomy Gestational Diabetes Mellitus in , Unspecified Control (Hcc) History of Oligohydramnios Personal History of Nicotine Dependence Streptococcus B Carrier State Complicating Childbirth (Hcc) Chronic Fatigue Anxiety Acquired Hypothyroidism Chronic Back Pain Chronic Joint Pain Insulin Resistance Syndrome Intractable Chronic Migraine Without Aura and Without Status Migrainosus Kidney Stones Dorsalgia, Unspecified Mild Obstructive Sleep Apnea Hereditary Hemochromatosis Assessment Allan Burr is a 39 year old female s/p Sleeve gastrectomy on12/17/2016 who responded well to surgery, losing approximately 25% of her total body weight. Post-OP course complicated by weight recurrence after 2 pregnancies.. Nearly all of her weight-related medical comorbidities have resolved or improved after surgery. Body mass index is 25.28 kg/m .) She has been complaint with her vitamin and mineral supplementation. Diet and exercise habits as above. Asymptomatic, taking required supplements as recommended, no signs or symptoms of vitamin deficiency. She continues to be motivated to lose weight. Agreeable to continuing Zepbound. Will write for Wegovy in case insurance denies. Would prefer Zepbound because she has experienced less side effects. F/b hepatology for hemochromatosis. Total weight loss of 45 lb of highest/initial weight or 22% of total body weight. Plan: EDUCATION: Encouraged to continue with healthy lifestyle changes and incorporate cardiovascular and resistance training, Discussed weight loss expectations after bariatric and metabolic surgery, Advised PT to avoid NSAIDs, smoking tobacco given increased risk of marginal ulcers, Compliant w/ bariatric vitamins. 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 History of obesity (Z86.39) - Currently on Zepbound 12.5 mg with one dose remaining; experiencing increased hunger and weight plateau at 159-160 lbs. - Previous trial of Wegovy resulted in nausea at higher doses; patient has a box of Wegovy at home. - Transitioning from Zepbound to Wegovy 1.7 mg; provided Zofran for potential side effects. - Advised to monitor for severe side effects and report if necessary; will consider reducing dose to 1 mg if intolerable. - Discussed potential future options, including oral semaglutide and other GLP-1 receptor agonists in development. - Patient understands and agrees with the treatment plan. 2. S/P laparoscopic sleeve gastrectomy (Z98.84) - No recent sleep apnea testing since before the sleeve gastrectomy in 2017. - Discussed that current mild sleep apnea is not a clinical indication for Zepbound coverage. - Patient understands the need for potential future sleep studies if symptoms persist or worsen. 3. PCOS (polycystic ovarian syndrome) (E28.2) 4. Mild obstructive sleep apnea (G47.33) Nicole Marquis APRN.[facility] Obesity Medicine I spent 25 minutes in the visit, with more than 50% of the total [id number] time of the visit in counseling / coordination of care. All documentation from previous visit was copied and pasted, documentation has been reviewed and edited as necessary for today's visit. documented in this encounter [facility] 06-15-2024 History of Presen t illness Narrative Images from the original note were not included. Allan Burr is a 39 y.o. female presents with chief complaint of Cough HPI: Cough This is a recurrent problem. The current episode started 1 to 4 weeks ago. The problem has been unchanged. The problem occurs every few minutes. The cough is Productive of sputum. Associated symptoms include ear congestion, headaches, nasal congestion, postnasal drip, shortness of breath and weight loss. Pertinent negatives include no chest pain, chills, ear pain, fever, heartburn, hemoptysis, myalgias, rash, sore throat, sweats or wheezing. The symptoms are aggravated by lying down. History of Present Illness The patient presents for evaluation of diarrhea. She reports persistent diarrhea, which she describes as watery and occasionally foamy in consistency. This symptom has been ongoing for the past week, during which she has experienced a weight loss of approximately 6 to 7 pounds. Despite adhering to the BRAT diet, minus the blackberries, her symptoms have not improved. She also reports a persistent cough, accompanied by nasal discharge, particularly noticeable when she is in a supine position at night. She experienced an episode of abdominal discomfort last night, which was alleviated with Zofran. She has attempted to manage her symptoms with [id number] antiemetics, but these have proven ineffective. She is scheduled to return to work tomorrow but is considering extending her leave until Wednesday. MEDICATIONS Current: Zofran SUBJECTIVE: MEDICATIONS: Current Outpatient Medications Medication Instructions fluconazole (Diflucan) 150 MG tablet Take 1 tablet once; may repeat in 72 hours if symptoms are not improved L norgest/e.estradiol-e.estrad (Ashlyna) 0.15-0.03 &0.01 MG tablet tablet 1 tablet, Oral, Every morning Multiple Vitamin (MULTI VITAMIN PO) Take by mouth phentermine (ADIPEX-P) 37.5 mg, Daily RT Probiotic Product (PRO-BIOTIC BLEND PO) Take by mouth Tirzepatide-Weight Management 12.5 MG/0.5ML solution auto-injector I have reviewed and reconciled the history and medication list with the patient today. REVIEW OF SYMPTOMS: Review of Systems Constitutional: Positive for weight loss. Negative for chills and fever. HENT: Positive for postnasal drip. Negative for ear pain and sore throat. Respiratory: Positive for cough and shortness of breath. Negative for hemoptysis and wheezing. Cardiovascular: Negative for chest pain. Gastrointestinal: Negative for heartburn. Musculoskeletal: Negative for myalgias. Skin: Negative for rash. Neurological: Positive for headaches. OBJECTIVE: Visit Vitals BP 126/78 Pulse 55 Ht 5' 7 Wt 162 lb SpO2 96% BMI 25.37 kg/m Smoking Status Former BSA 1.86 m Physical Exam Vitals and nursing note reviewed. Constitutional: Appearance: Normal appearance. HENT: Head: Normocephalic and atraumatic. Right Ear: Tympanic membrane normal. Left Ear: Tympanic membrane normal. Nose: Congestion present. Right Sinus: Frontal sinus tenderness present. Left Sinus: Frontal sinus tenderness present. Mouth/Throat: Mouth: Mucous membranes are moist. Pharynx: Posterior oropharyngeal erythema present. Tonsils: No tonsillar exudate. Cardiovascular: Rate and Rhythm: Normal rate and regular rhythm. Pulses: Normal pulses. Heart sounds: Normal heart sounds. Pulmonary: Effort: Pulmonary effort is normal. Breath sounds: Examination of the left-lower field reveals rhonchi. Rhonchi present. Abdominal: General: Bowel sounds are normal. There is no distension. Palpations: Abdomen is soft. Tenderness: There is no abdominal tenderness. Musculoskeletal: Cervical back: Normal range of motion and neck supple. Skin: General: Skin is warm and dry. Neurological: Mental Status: She is alert. ASSESSMENT AND PLAN: Assessment/Plan Diagnoses and all orders for this visit: Diarrhea, unspecified type - Stool culture; Future - Occult blood x 1, stool; Future - H. pylori antigen, stool; Future Upper respiratory tract infection, unspecified type - azithromycin (Zithromax) 250 MG tablet; Take 2 tablets (500 mg) by mouth Daily for 1 day, THEN 1 tablet (250 mg) Daily for 4 days. Assessment & Plan 1. Diarrhea. She reports experiencing watery and sometimes foamy diarrhea for the past week, leading to a weight loss of 6-7 pounds. She has been following the BRAT. Stool studies will be conducted to rule out any potential infections. She is advised to continue staying hydrated and to monitor her symptoms closely. If the stool studies indicate an infection, appropriate antibiotics will be prescribed. If no infection is found, further evaluation may be necessary to determine the cause of her symptoms. documented in this encounter [facility] 06-08-2024 History of Presen t illness Narrative Images from the original note were not included. Allan Burr is a 39 y.o. female presents with chief complaint of chest congestion HPI: History of Present Illness The patient presents for evaluation of cough. She reports a recent history of influenza A in her 3-year-old son. She herself tested positive for COVID-19 on 05/21/2024. She initially sought medical attention for a sinus infection, which improved after a 2 to 3-day course of antibiotics. However, she experienced a recurrence of symptoms, primarily affecting her sinuses. Currently, she reports that the symptoms have migrated to her chest, with the onset of coughing on Wednesday. She expresses fear of developing pneumonia, a condition she has previously experienced. She also reports mild wheezing, which began yesterday, and a sensation of pressure on her chest. Her cough is described as burning, with no expectoration. She declined the offer of Tamiflu due to concerns about potential side effects, including vivid dreams and nausea. She also reports the onset of chills today. She has been self-medicating with aprl-eci-sihiecw DayQuil and Mucinex. She had pneumonia around [facility]. MEDICATIONS DayQuil, Mucinex SUBJECTIVE: MEDICATIONS: Current Outpatient Medications Medication Instructions fluconazole (Diflucan) 150 MG tablet Take 1 tablet once; may repeat in 72 hours if symptoms are not improved L norgest/e.estradiol-e.estrad (Ashlyna) 0.15-0.03 &0.01 MG tablet tablet 1 tablet, Oral, Every morning Multiple Vitamin (MULTI VITAMIN PO) Take by mouth phentermine (ADIPEX-P) 37.5 mg, Daily RT Probiotic Product (PRO-BIOTIC BLEND PO) Take by mouth Tirzepatide-Weight Management 12.5 MG/0.5ML solution auto-injector I have reviewed and reconciled the history and medication list with the patient today. REVIEW OF SYMPTOMS: Review of Systems Constitutional: Negative for chills and fever. HENT: Positive for postnasal drip and rhinorrhea. Negative for ear pain and sore throat. Respiratory: Positive for cough, shortness of breath and wheezing. Cardiovascular: Negative for chest pain. Musculoskeletal: Negative for myalgias. Skin: Negative for rash. Neurological: Positive for headaches. OBJECTIVE: Visit Vitals BP 122/78 Pulse 110 Temp 99.8 F Ht 5' 7 Wt 170 lb 6.4 oz SpO2 98% BMI 26.69 kg/m Smoking Status Former BSA 1.91 m Physical Exam Vitals and nursing note reviewed. Constitutional: Appearance: Normal appearance. HENT: Head: Normocephalic and atraumatic. Right Ear: Tympanic membrane normal. Left Ear: Tympanic membrane normal. Nose: Congestion present. Right Sinus: Frontal sinus tenderness present. Left Sinus: Frontal sinus tenderness present. Mouth/Throat: Mouth: Mucous membranes are moist. Pharynx: Posterior oropharyngeal erythema present. Tonsils: No tonsillar exudate. Eyes: Extraocular Movements: Extraocular movements intact. Pupils: Pupils are equal, round, and reactive to light. Cardiovascular: Rate and Rhythm: Normal rate and regular rhythm. Pulses: Normal pulses. Heart sounds: Normal heart sounds. Pulmonary: Effort: Pulmonary effort is normal. Breath sounds: Wheezing present. Musculoskeletal: Cervical back: Normal range of motion and neck supple. Skin: General: Skin is warm and dry. Neurological: Mental Status: She is alert. ASSESSMENT AND PLAN: Assessment/Plan Diagnoses and all orders for this visit: Chest congestion - STATUS COVID-19/FLU - XR chest 2 views; Future Viral URI with cough Exposure to influenza Most likely viral in nature, will need to run its course. Educated patient viral infections such as colds/flus do not respond to abx and typically do not begin to improve until 7-10 days into the illness. Discussed symptomatic treatment with patient. Humidifier at bedside to moisten area. Push fluids. Rest. Good handwashing. Follow up if symptoms do not improve. To ER for markedly worsening symptoms. documented in this encounter [facility] 05-10-2024 History of Presen t illness Narrative Images from the original note were not included. Allan Burr is a 38 y.o. female presents with chief complaint of Facial Pain HPI: HPI History of Present Illness The patient presents for evaluation of nasal congestion. She reports experiencing alternating symptoms of rhinorrhea and nasal congestion, with the nasal discharge initially presenting as yellow before transitioning to a greenish hue. These symptoms have been persisting for approximately 3 weeks. She also describes a sensation of postnasal drip, particularly noticeable during the night. Initially, she experienced a sore throat, but this symptom has since resolved. She reports no fever. She did experience a cough when the symptoms first began, but this has since resolved. However, she continues to experience postnasal drip. Her symptoms appear to worsen in the evening and during sleep. She also reports facial swelling, particularly noticeable when bending down. She has a history of sinus infections and believes her current symptoms are exacerbated by dry indoor heat. She has been using a humidifier, which provides some relief. Despite attempts to manage these symptoms with saline nasal spray and nightly doses of Benadryl 50 mg, which aids in sleep, there has been no significant improvement. She reports a popping sensation in her ears, particularly when blowing her nose, but does not experience any associated pain. MEDICATIONS Benadryl SUBJECTIVE: MEDICATIONS: Current Outpatient Medications Medication Instructions fluconazole (Diflucan) 150 MG tablet Take 1 tablet once; may repeat in 72 hours if symptoms are not improved L norgest/e.estradiol-e.estrad (Ashlyna) 0.15-0.03 &0.01 MG tablet tablet 1 tablet, Oral, Every morning Multiple Vitamin (MULTI VITAMIN PO) Take by mouth phentermine (ADIPEX-P) 37.5 mg, Daily RT Probiotic Product (PRO-BIOTIC BLEND PO) Take by mouth Zepbound 10 MG/0.5ML solution auto-injector INJECT 10 MG SUBCUTANEOUSLY ONE TIME PER WEEK REVIEW OF SYMPTOMS: Review of Systems Constitutional: Positive for fatigue. Negative for fever. HENT: Positive for congestion, postnasal drip and sinus pressure. OBJECTIVE: Visit Vitals BP 124/80 (BP Location: Left arm, Patient Position: Sitting, BP Cuff Size: Large adult) Pulse 97 Temp 98.7 F (Tympanic) Ht 5' 7 Wt 175 lb 6.4 oz SpO2 99% BMI 27.47 kg/m Smoking Status Former BSA 1.94 m Physical Exam Vitals reviewed. Constitutional: Appearance: Normal appearance. HENT: Head: Normocephalic and atraumatic. Ears: Comments: B/L TM: dull Nose: Congestion present. Right Turbinates: Swollen. Left Turbinates: Swollen. Right Sinus: Maxillary sinus tenderness and frontal sinus tenderness present. Mouth/Throat: Mouth: Mucous membranes are moist. Eyes: Pupils: Pupils are equal, round, and reactive to light. Cardiovascular: Rate and Rhythm: Normal rate and regular rhythm. Pulses: Normal pulses. Heart sounds: Normal heart sounds. Pulmonary: Effort: Pulmonary effort is normal. Breath sounds: Normal breath sounds. Musculoskeletal: Cervical back: Normal range of motion and neck supple. Skin: General: Skin is warm and dry. Capillary Refill: Capillary refill takes less than 2 seconds. Findings: No rash. Neurological: General: No focal deficit present. Mental Status: She is alert and oriented to person, place, and time. ASSESSMENT AND PLAN: Assessment/Plan Diagnoses and all orders for this visit: Nasal congestion - RAPID DNA COVID Antibiotic-induced yeast infection - fluconazole (Diflucan) 150 MG tablet; Take 1 tablet (150 mg) by mouth 1 (one) time for 1 dose - Ambulatory referral to ENT; Future Acute non-recurrent pansinusitis - amoxicillin-clavulanate (Augmentin) 875-125 MG tablet; Take 1 tablet (875 mg) by mouth in the morning and 1 tablet (875 mg) before bedtime. Do all this for 10 days. -Initiate abx. Tylenol/motrin OTC for fever/discomfort. Saline nasal rinses. Flonase OTC. Frequent infections refer to ENT. documented in this encounter [facility] 04-27-2024 Nicole Tracy APRN.[facility] - 04/27/2024 4:07 PM EST Images from the original note were not included. $99 for 1 year supply - Bariatric Pal [email or web address]/ products/bariatricpal-multivita fcc-hnq-gbj-cubrcitmw-zsnjye-sc bscription?udlqufj=[email or web address] 77&selling_plan=[id number] Compared to a regular multivitamin Kidney Stones After Bariatric Surgery After bariatric surgery, patients have an increased risk for kidney stones. Research shows that gastric bypass patients have changes in urine and higher levels of particles, called oxalates, which form kidney stones. You see, the gastrointestinal (GI) tract naturally absorbs oxalate. However, once the GI tract is altered during surgery, higher levels of oxalate can occur in the urinary tract. The oxalate can form crystals, which may lead to the formation of kidney stones. Symptoms of kidney stones include: Back pain Blood in the urine Nausea or vomiting Fever and chills Urine with a bad smell Cloudy urine If you have symptoms of a kidney stone, contact your doctor or nurse practitioner. You may be asked to drink extra fluid to flush out the stone in the urine, and then strain your urine so that a stone can be sent to a lab for testing. There are ways to prevent kidney stones from forming. Drink lots of water You ve probably heard again and again from your winch operator that you need to consume water throughout the day to help your body function, keep up with physical activity and keep the hunger at bay. In addition, proper hydration helps the body get rid of waste and keeps digestion on track. Limit oxalate-containing food Foods that contain oxalates include beets, spinach, rhubarb, strawberries, nuts, chocolate, tea, wheat bran and dry beans. Reduce sodium intake Reduce the amount of salt you eat, as well as red meat. Too much sodium can trigger kidney stones because it causes you to get dehydrated, and the minerals will crystalize when there is not enough fluid in the body to dilute them. It also may raise the level of calcium in your urine. Because the GI tract will absorb less calcium (in addition to oxalate), a lot of people believe that a build-up could lead to kidney stones. In actuality, kidney stones have no relationship to calcium; the oxalate is really the problem. You need calcium in your diet, so make sure you keep taking your calcium supplements as directed. If you have any questions about kidney stones or your diet, contact your doctor, nurse practitioner or bariatric dietitian. https://[email or web address].org/up dates/blogs/hccrqgijt-jnh-isaqw edwj-dhuddre-mjgd/k kytlr-bwssbj-kgyqm-bariatric-rodriguez rgery#:~:text=After%20bariatric %20surgery%2C%20patients%20have ,GI)%20tract%20naturally%20abso rbs%20oxalate. documented in this encounter [facility] 04-27-2024 History of Presen t illness Narrative Images from the original note were not included. BMI Obesity Medicine PostOp Follow Up Visit Distance [facility] Visit April 27, 2024 I have communicated my name and active licensure. The patient's identity and physical location were verified at the time of this visit. Either the patient or their legal account executive sales representative has been informed of the risks [...] PROCEDURE Visit: 5 years Today's Visit: BMI 26.68 kg/(m^2) Last Visit: Wt: 117 kg (258 lb) BMI: 40.25 kg/(m^2) COMPLICATIONS SINCE LAST VISIT?: NONE Found to have hemochromatosis BEKA: Allan Burr is a 38 year old female s/p Sleeve gastrectomy on12/17/2016 who responded well to surgery, losing approximately 25% of her total body weight. Post-OP course complicated by weight recurrence after 2 pregnancies.. Nearly all of her weight-related medical comorbidities have resolved or improved after surgery. There is no height or weight on file to calculate BMI.) She has been complaint with her vitamin and mineral supplementation. Diet and exercise habits as above. Asymptomatic, taking required supplements as recommended, no signs or symptoms of vitamin deficiency. She continues to be motivated to lose weight. Agreeable to continue phentermine and bridge to Zepbound. Plan: EDUCATION: Encouraged to continue with healthy lifestyle changes and incorporate cardiovascular and resistance training, Discussed weight loss expectations after bariatric and metabolic surgery, Advised PT to avoid NSAIDs, smoking tobacco given increased risk of marginal ulcers, Compliant w/ bariatric vitamins. 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 Was in the hospital with pneumonia and kidney stones. Was off of phentermine for some time. Doing well. Less side effects with Zepbound. Weight is decreased since last visit. AOM Hx: Was going to a [email or web address] spa and getting semaglutide injections, but it is costly. Metformin - GI upset Contrave SE- bad dreams, felt like she was in a haze Topiramate took when she was younger for migraines Had kidney stone while . Diet: Increasing water intake Saw Leigha Lake, RD Exercise:increased Sleep: mild PILAR, not on CPAP Taking required vitamins and minerals: Yes One-a-day iron free Calcium: No Multivitamin & Minerals: 1 per day Iron Supplement: No Vitamin B12: included in multivitamin Vitamin D3: included in multi-vitamin Other: N/A Are you attending any Support Groups? Not known Current Outpatient Medications Medication Sig ondansetron (ZOFRAN) 4 mg tablet Take 1 tablet by mouth every 6 hours as needed. omeprazole (PRILOSEC) 20 mg capsule Take 1 capsule by mouth once daily. tirzepatide, weight loss (ZEPBOUND) 10 mg/0.5 mL pen injector Inject 10 mg subcutaneously one time a week. tirzepatide, weight loss (ZEPBOUND) 10 mg/0.5 mL pen injector Inject 10 mg subcutaneously one time a week. MULTIVITAMIN ORAL Take by mouth. Lactobacillus acidophilus (PROBIOTIC ORAL) Take by mouth. multivit-min/iron/folic/zhh605 (HAIR, SKIN AND NAILS ADVANCED ORAL) Take by mouth. calcium polycarbophil (FIBERCON ORAL) Take by mouth. L-NORGEST/E.ESTRADIOL-E.ESTRAD (AMETHIA ORAL) Take 1 tablet by mouth once daily. No current facility-administered medications for this visit. Patient Active Problem List Hereditary hemochromatosis (HCC) Acquired hypothyroidism Intractable chronic migraine without aura [...] Use Smoking status: Former Current packs/day: 0.00 Average packs/day: 2.0 packs/day for 14.0 years (28.0 ttl pk-yrs) Types: Cigarettes Start date: 04/12/2000 Quit date: 04/12/2014 Years since quittin.0 Smokeless tobacco: Never Substance Use Topics Alcohol use: No Drug use: No ROS: Denies nausea, vomiting, dumping syndrome, reactive hypoglycemia, gustatory rhinorrhea, Denies abdominal pain, constipation, diarrhea, melena, hematochezia, Denies paresthesias, gait abnormality, fatigue, weakness, lower extremity edema. 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 PHYSICAL EXAM: Vital Signs: Ht 170.5 cm (5' 7.13 ) Wt 77.6 kg (171 lb) LMP 08/25/2023 (Exact Date) BMI 26.68 kg/m Body mass index is 26.68 kg/m . Physical exam: VIDEO EXAM: (if [...] 12/18/2016 2.12 1.00 - 4.00 k/uL Final [place]% 12/18/2016 6.4 % Final Abs [place] 12/18/2016 0.64 0.00 - 0.86 k/uL Final [...] 2.6 (L) 2.7 - 4.8 mg/dL Final CMP Glucose (mg/dL) Date Value 12/30/2023 88 12/06/2023 80 12/18/2016 90 11/20/2016 87 Potassium (mmol/L) Date Value 12/30/2023 4.2 12/06/2023 4.7 12/18/2016 4.4 11/20/2016 4.4 Sodium (mmol/L) Date Value 12/30/2023 138 12/06/2023 141 12/18/2016 138 11/20/2016 136 Chloride (mmol/L) Date Value 12/30/2023 106 12/06/2023 107 12/18/2016 104 11/20/2016 100 CO2 (mmol/L) Date Value 12/30/2023 25 12/06/2023 26 12/18/2016 20 11/20/2016 20 Creatinine (mg/dL) Date Value 12/30/2023 0.79 12/06/2023 0.78 12/18/2016 0.51 11/20/2016 0.61 BUN (mg/dL) Date Value 12/30/2023 16 12/06/2023 17 12/18/2016 5 11/20/2016 19 Anion Gap (mmol/L) Date Value 12/30/2023 7 12/06/2023 8 12/18/2016 14 11/20/2016 16 Calcium (mg/dL) Date Value 12/18/2016 8.8 11/20/2016 9.2 Calcium, Total (mg/dL) Date Value 12/30/2023 9.0 12/06/2023 8.9 Protein, Total (g/dL) Date Value 12/30/2023 6.8 12/06/2023 6.5 11/20/2016 7.0 08/31/2016 7.4 Albumin (g/dL) Date Value 12/30/2023 4.3 12/06/2023 4.2 11/20/2016 4.1 08/31/2016 4.4 Bilirubin, Total (mg/dL) Date Value 12/30/2023 0.5 12/06/2023 0.4 11/20/2016 0.3 08/31/2016 0.5 Alkaline Phosphatase (U/L) Date Value 12/30/2023 78 12/06/2023 81 11/20/2016 100 08/31/2016 95 AST (U/L) Date Value 12/30/2023 21 12/06/2023 18 11/20/2016 26 08/31/2016 18 ALT (U/L) Date Value 12/30/2023 18 12/06/2023 17 11/20/2016 20 08/31/2016 11 CBC WBC (k/uL) Date Value 04/07/2024 6.05 RBC (m/uL) Date Value 04/07/2024 4.59 Hemoglobin (g/dL) Date Value 04/07/2024 14.2 Hematocrit (%) Date Value 04/07/2024 39.5 MCV (fL) Date Value 04/07/2024 86.1 MCH (pg) Date Value 04/07/2024 30.9 MCHC (g/dL) Date Value 04/07/2024 35.9 RDW-CV (%) Date Value 04/07/2024 12.1 Platelet Count (k/uL) Date Value 04/07/2024 251 MPV (fL) Date Value 04/07/2024 8.8 (L) Lipid Panel Cholesterol, Total (mg/dL) Date Value 12/06/2023 188 12/18/2022 200 08/31/2016 193 HDL Cholesterol (mg/dL) Date Value 12/06/2023 52 12/18/2022 45 08/31/2016 51 LDL Cholesterol (mg/dL) Date Value 12/06/2023 126 12/18/2022 140 08/31/2016 129 Triglyceride (mg/dL) Date Value 12/06/2023 49 12/18/2022 74 08/31/2016 65 Hgb A1C Hemoglobin A1C Date Value Ref Range Status 12/06/2023 4.4 4.3 - 5.6 % Final Comment: [place] [employer] guidelines indicate that patients with HgbA1c in the range 5.7-6.4% are at increased risk for development of diabetes, and intervention by lifestyle modification may be beneficial. HgbA1c greater or equal to 6.5% is considered diagnostic of diabetes. 12/18/2022 4.5 4.3 - 5.6 % Final Comment: [place] [employer] guidelines indicate that patients with HgbA1c in the range 5.7-6.4% are at increased risk for development of diabetes, and intervention by lifestyle modification may be beneficial. HgbA1c greater or equal to 6.5% is considered diagnostic of diabetes. 08/31/2016 5.1 4.3 - 5.6 % Final Vitamin B12 Date Value Ref Range Status 12/06/2023 1,273 (H) 232 - 1,245 pg/mL Final 12/18/2022 >2,000 (H) 232 - 1,245 pg/mL Final Folate Date Value Ref Range Status 12/06/2023 15.5 >4.7 ng/mL Final 12/18/2022 >20.0 >4.7 ng/mL Final Comment: A result of > 20 ng/mL is not necessarily indicative of a pathologic or treatable condition: it reflects a limitation of the test methodology. Assay reference range: 4.8 to 24.2 ng/mL. Suitable for detection of folate deficiency. Reference: Folate III (Folate III) [package insert V 1.0 Romanian]. [facility], [place], [place]: February 2015. FIB-4 Calculation: 0.77 at 04/07/2024 10:22 AM Calculated from: SGOT/AST: 21 U/L at 12/30/2023 8:56 AM SGPT/ALT: 18 U/L at 12/30/2023 8:56 AM Platelets: 251 k/uL at 04/07/2024 10:22 AM Age: 38 years ACTIVE PROBLEM LIST Pcos (Polycystic Ovarian Syndrome) S/P Laparoscopic Sleeve Gastrectomy Gestational Diabetes Mellitus in , Unspecified Control History of Oligohydramnios Personal History of Nicotine Dependence Streptococcus B [place] Complicating Childbirth Chronic Fatigue Anxiety Acquired Hypothyroidism Chronic Back Pain Chronic Joint Pain Insulin Resistance Syndrome Intractable Chronic Migraine Without Aura and Without Status Migrainosus Kidney Stones Dorsalgia, Unspecified Mild Obstructive Sleep Apnea Hereditary Hemochromatosis (Hcc) Assessment Allan Burr is a 38 year old female s/p Sleeve gastrectomy on12/17/2016 who responded well to surgery, losing approximately 25% of her total body weight. Post-OP course complicated by weight recurrence after 2 pregnancies.. Nearly all of her weight-related medical comorbidities have resolved or improved after surgery. Body mass index is 26.68 kg/m .) She has been complaint with her vitamin and mineral supplementation. Diet and exercise habits as above. Asymptomatic, taking required supplements as recommended, no signs or symptoms of vitamin deficiency. She continues to be motivated to lose weight. Agreeable to increase Zepbound and continue phentermine 1/2 tablet in the morning as needed. F/b hepatology for hemochromatosis. Plan: EDUCATION: Encouraged to continue with healthy lifestyle changes and incorporate cardiovascular and resistance training, Discussed weight loss expectations after bariatric and metabolic surgery, Advised PT to avoid NSAIDs, smoking tobacco given increased risk of marginal ulcers, Compliant w/ bariatric vitamins. 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: Today: NA Annual labs due in November 2024 CBC W DIFF, CMP, Vitamin B1, Vitamin B12, Folate, PTH Intact, Vitamin D25OH, Iron/TIBC/Ferritin, Lipids, and HBA1C DISPOSITION: Return 3 month to Post-op follow up/ individual office visit - consider addition of Topiramate for headaches or sleep study to r/o PILAR - continue omeprazole for GERD - Increase Zepbound to 12.5 mg - zofran prn for nausea - continue 1/2 tab of phentermine as needed - f/u w/ RDN for kidney stone prevention nutrition interventions Nicole Marquis APRN.CNP [facility] Obesity Medicine I spent 25 minutes in the visit, with more than 50% of the total gopf-we-wlkd time of the visit in counseling / coordination of care. All documentation from previous visit was copied and pasted, documentation has been reviewed and edited as necessary for today's visit. documented in this encounter [facility] 04-27-2024 Note HNO ID: [id number] Author: NICOLE MARQUIS APRN.CNP Service: ? Author Type: Nurse Practitioner Type: Progress Notes Filed: 04/27/2024 16:25 Note Text: BMI Obesity Medicine PostOp Follow Up Visit [facility] Visit April 27, 2024 I have communicated my name and active licensure. The patient's identity and physical location were verified at the time of this visit. Either the patient or their legal account executive sales representative has been informed of the risks [...] PROCEDURE Visit: 5 years Today's Visit: BMI 26.68 kg/(m2) Last Visit: Wt: 117 kg (258 lb) BMI: 40.25 kg/(m2) COMPLICATIONS SINCE LAST VISIT?: NONE Found to have hemochromatosis BEKA: Allan Burr is a 38 year old female s/p Sleeve gastrectomy on12/17/2016 who responded well to surgery, losing approximately 25% of her total body weight. Post-OP course complicated by weight recurrence after 2 pregnancies.. Nearly all of her weight-related medical comorbidities have resolved or improved after surgery. There is no height or weight on file to calculate BMI.) She has been complaint with her vitamin and mineral supplementation. Diet and exercise habits as above. Asymptomatic, taking required supplements as recommended, no signs or symptoms of vitamin deficiency. She continues to be motivated to lose weight. Agreeable to continue phentermine and bridge to Zepbound. Plan: EDUCATION: Encouraged to continue with healthy lifestyle changes and incorporate cardiovascular and resistance training, Discussed weight loss expectations after bariatric and metabolic surgery, Advised PT to avoid NSAIDs, smoking tobacco given increased risk of marginal ulcers, Compliant w/ bariatric vitamins. 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 Was in the hospital with pneumonia and kidney stones. Was off of phentermine for some time. Doing well. Less side effects with Zepbound. Weight is decreased since last visit. AOM Hx: Was going to a med spa and getting semaglutide injections, but it is costly. Metformin - GI upset Contrave SE- bad dreams, felt like she was in a haze Topiramate took when she was younger for migraines Had kidney stone while . Diet: Increasing water intake Saw Leigha Lake, RD Exercise:increased Sleep: mild PILAR, not on CPAP Taking required vitamins and minerals: Yes One-a-day iron free Calcium: No Multivitamin AND Minerals: 1 per day Iron Supplement: No Vitamin B12: included in multivitamin Vitamin D3: included in multi-vitamin Other: N/A Are you attending any Support Groups? Not known Current Outpatient Medications Medication Sig ondansetron (ZOFRAN) 4 mg tablet Take 1 tablet by mouth every 6 hours as needed. omeprazole (PRILOSEC) 20 mg capsule Take 1 capsule by mouth once daily. tirzepatide, weight loss (ZEPBOUND) 10 mg/0.5 mL pen injector Inject 10 mg subcutaneously one time a week. tirzepatide, weight loss (ZEPBOUND) 10 mg/0.5 mL pen injector Inject 10 mg subcutaneously one time a week. MULTIVITAMIN ORAL Take by mouth. Lactobacillus acidophilus (PROBIOTIC ORAL) Take by mouth. multivit-min/iron/folic/zhu773 (HAIR, SKIN AND NAILS ADVANCED ORAL) Take by mouth. calcium polycarbophil (FIBERCON ORAL) Take by mouth. L-NORGEST/E.ESTRADIOL-E.ESTRAD (AMETHIA ORAL) Take 1 tablet by mouth once daily. No current facility-administered medications for this visit. Patient Active Problem List Hereditary hemochromatosis (HCC) Acquired hypothyroidism Intractable chronic migraine without aura and without status migrainosus Anxiety Insulin resistance syndrome Mild obstructive sleep apnea Chronic fatigue Chronic back pain Chronic joint pain Kidney stones Personal history of nicotine dependence Streptococcus B carrier state complicating childbirth Gestational diabetes mellitus in , unspecified control History of oligohydramnios Dorsalgia, unspecified S/ (more content not included)... [facility] 03-02-2024 Note [id number] 02-24-2024 Note Education Materials Urology Kidney Stones Kidney stones are solid, rock-like deposits that form inside of the kidneys. The kidneys are a pair of organs that make urine. A kidney stone may form in a kidney and move into other parts of the urinary tract, including the tubes that connect the kidneys to the bladder (ureters), the bladder, and the tube that carries urine out of the body (urethra). As the stone moves through these areas, it can cause intense pain and block the flow of urine. Kidney stones are created when high levels of certain minerals are found in the urine. The stones are usually passed out of the body through urination, but in some cases, medical treatment may be needed to remove them. What are the causes? Kidney stones may be caused by: ? A condition in which certain glands produce too much parathyroid hormone (primary hyperparathyroidism), which causes too much calcium buildup in the blood. ? A buildup of uric acid crystals in the bladder (hyperuricosuria). Uric acid is a chemical that the body produces when you eat certain foods. It usually leaves the body in the urine. ? Narrowing (stricture) of one or both of the ureters. ? A kidney blockage that is present at (congenital obstruction). ? Past surgery on the kidney or the ureters. What increases the risk? The following factors may make you more likely to develop this condition: ? Having had a kidney stone in the past. ? Having a family history of kidney stones. ? Not drinking enough water. ? Eating a diet that is high in protein, salt (sodium), or sugar. ? Being overweight or obese. What are the signs or symptoms? Symptoms of a kidney stone may include: ? Pain in the side of the abdomen, right below the ribs (flank pain). Pain usually spreads (radiates) to the groin. ? Needing to urinate often or urgently. ? Painful urination. ? Blood in the urine (hematuria). ? Nausea. ? Vomiting. ? Fever and chills. How is this diagnosed? This condition may be diagnosed based on: ? Your symptoms and medical history. ? A physical exam. ? Blood tests. ? Urine tests. These may be done before and after the stone passes out of your body through urination. ? Imaging tests, such as a CT scan, abdominal X-ray, or ultrasound. ? A procedure to examine the inside of the bladder (cystoscopy). How is this treated? Treatment for kidney stones depends on the size, location, and makeup of the stones. Kidney stones will often pass out of the body through urination. You may need to: ? Increase your fluid intake to help pass the stone. In some cases, you may be given fluids through an IV and may need to be monitored in the hospital. ? Take medicine for pain. ? Make changes in your diet to help prevent kidney stones from coming back. Sometimes, procedures are needed to remove a kidney stone. This may involve: ? A procedure to break up kidney stones using: ? A focused beam of light (laser therapy). ? Shock waves (extracorporeal shock wave lithotripsy). ? Surgery to remove kidney stones. This may be needed if you have severe pain or have stones that block your urinary tract. Follow these instructions at home: Medicines ? Take ufxu-pct-ahzgtjd and prescription medicines only as told by your health care provider. ? Ask your health care provider if the medicine prescribed to you requires you to avoid driving or using heavy machinery. Eating and drinking ? Drink enough fluid to keep your urine pale yellow. You may be instructed to drink at least 8?10 glasses of water each day. This will help you pass the kidney stone. ? If directed, change your diet. This may include: ? Limiting how much sodium you eat. ? Eating more fruits and vegetables. ? Limiting how much animal protein you eat. Animal proteins include red meat, poultry, fish, and eggs. ? Eating a normal amount of calcium (1,000?1,300 mg per day). ? Follow instructions from your health care provider about eating or drinking restrictions. General instructions ? Collect urine samples as told by your health care provider. You may need to collect a urine sample: ? 24 hours after you pass the stone. ? 8?12 weeks after you pass the kidney stone, and every 6?12 months after that. ? Strain your urine every time you urinate, for as long as directed. Use the strainer that your health care provider recommends. ? Do not throw out the kidney stone after passing it. Keep the stone so it can be tested by your health care provider. Testing the makeup of your kidney stone may help prevent you from getting kidney stones in the future. ? Keep all follow-up visits. You may need follow-up X-rays or ultrasounds to make sure that your stone has passed. How is this prevented? To prevent another kidney stone: ? Drink enough fluid to keep your urine pale yellow. This is the best way to prevent kidney stones. ? Eat a healthy diet. Follow (more content not included)... [facility] 02-24-2024 Note [facility] Summary PERSON INFORMATION Name ALLAN BURR Age 38 Years 1985 Sex FEMALE Language Romanian PCP MARIYA HUERTA Marital Status Med Service Observation Acct# Arrival 02/23/2024 03:22:23 Visit Reason Nausea; Back swelling; Flank pain; RENAL COLIC ON LEFT SIDE Acuity LOS 000 33:20 Address: [address] [place] [id number] Comment: PROVIDER INFORMATION VITALS INFORMATION Vital Sign Triage Latest Temp Oral 36.6 DegC 37.0 DegC Temp Temporal Temp Intravascular Temp Axillary Temp Rectal 02 Sat 98 % 97 % Respiratory Rate 16 br/min 16 br/min Peripheral Pulse Rate 98 bpm 93 bpm Apical Heart Rate Blood Pressure 116 mmHg / 82 mmHg 128 mmHg / 84 mmHg Comment: MEDICAL INFORMATION Allergy Info: No known allergies Medication List: New Medications [id number], [address] [place], [place] [phone], [phone] tamsulosin (Flomax 0.4 mg oral capsule) 1 cap(s) Oral (given by mouth) At bedtime. MAGRU. Refills: 0. Medications to Continue That Have Not Changed Other Medications ethinyl estradiol-levonorgestrel (Amethia oral tablet) 1 tab(s) Oral (given by mouth) every day. tirzepatide (tirzepatide 7.5 mg/0.5 mL subcutaneous solution) 7.5 Milligram Subcutaneous (under the skin) every week. Comment: Lab and Radiology Results Laboratory or Other Results This Visit (last charted value for your 02/23/2024 visit) Hematology 02/24/2024 6:58 AM Hct: 30.3 % -- Normal range between ( 33.7 and 40.4 ) Hgb: 10.7 gm/dL -- Normal range between ( 11.3 and 15.9 ) MCH: 31 pg -- Normal range between ( 24 and 34 ) MCHC: 35 gm/dL -- Normal range between ( 26 and 37 ) MCV: 89 fL -- Normal range between ( 81 and 100 ) MPV: 7.1 fL -- Normal range between ( 6.3 and 10.2 ) Platelet: 359 x103/mcL -- Normal range between ( 138 and 427 ) RBC: 3.41 x106/mcL -- Normal range between ( 3.70 and 5.30 ) RDW: 13.1 % -- Normal range between ( 11.5 and 15.0 ) WBC: 8.7 x103/mcL -- Normal range between ( 3.5 and 10.5 ) Auto Eos %: 1.3 % -- Normal range between ( 0.9 and 4.0 ) Auto Lymph %: 20 % -- Normal range between ( 14 and 48 ) Auto Neut %: 70 % -- Normal range between ( 44 and 88 ) Eos Abs#: 0.1 x103/mcL -- Normal range between ( 0.0 and 0.4 ) Lymph Abs#: 1.7 x103/mcL -- Normal range between ( 1.3 and 2.9 ) [place] Abs#: 0.7 x103/mcL -- Normal range between ( 0.0 and 0.8 ) Auto Baso %: 1.2 % -- Normal range between ( 0.2 and 2.0 ) Auto [place] %: 8 % -- Normal range between ( 1 and 12 ) Baso Abs#: 0.1 x103/mcL -- Normal range between ( 0.0 and 0.2 ) Neut Abs#: 6.1 x103/mcL -- Normal range between ( 1.5 and 9.2 ) Urinalysis 02/23/2024 4:00 AM UA Blood: NEGATIVE UA Color: Yellow UA Glucose: NEGATIVE UA Ketones: NEGATIVE UA Leuk Est: NEGATIVE UA Nitrite: NEGATIVE UA Protein: NEGATIVE UA Urobilinogen: 0.2 mg/dL -- Normal range between ( 0.2 and 1.0 ) UA pH: 6.5 -- Normal range between ( 5 and 8 ) UA Spec Grav: 1.020 -- Normal range between ( 1.001 and 1.035 ) UA Clarity: CLEAR Micro?: Not Indicated Culture?: Not Indicated UA Bilirubin: NEGATIVE Urine Source: Clean Catch Chemistry 02/24/2024 6:58 AM Creatinine Level: 0.98 mg/dL -- Normal range between ( 0.60 and 1.30 ) Albumin Level: 2.6 gm/dL -- Normal range between ( 3.5 and 5.0 ) Alk Phos: 56 IU/L -- Normal range between ( 32 and 91 ) Bili Total: 0.6 mg/dL -- Normal range between ( 0.3 and 1.2 ) BUN: 15 mg/dL -- Normal range between ( 8 and 26 ) Chloride Level: 110 mmol/L -- Normal range between ( 101 and 111 ) CO2: 21 mmol/L -- Normal range between ( 21 and 32 ) Glucose Level: 79.0 mg/dL -- Normal range between ( 74.0 and 118.0 ) Osmolality: 264 mOsm/L Potassium Level: 3.8 mmol/L -- Normal range between ( 3.6 and 5.1 ) Sodium Level: 132.0 mmol/L -- Normal range between ( 136.0 and 144.0 ) Protein Total: 5.4 gm/dL -- Normal range between ( 6.5 and 8.1 ) Anion Gap: 4.8 mmol/L -- Normal range between ( 5.0 and 19.0 ) Calcium Level: 7.2 mg/dL -- Normal range between ( 8.9 and 10.3 ) ALT/SGPT: 19.0 IU/L -- Normal range between ( 14.0 and 54.0 ) AST/SGOT: 18 IU/L -- Normal range between ( 15 and 41 ) BUN/Creat Ratio: 15.3 -- Normal range between ( 4.6 and 16.2 ) Globulin: 2.8 gm/dL -- Normal range between ( 1.5 and 4.3 ) A/G Ratio: 0.9 -- Normal range between ( 1.4 and 2.6 ) eGFR AA: >60 mL/min/1.73m2 eGFR Non AA: >60 mL/min/1.73m2 02/23/2024 3:55 AM Lipase Level: 43.0 IU/L -- Normal range between ( 22.0 and 51.0 ) Test Serum Qual: Negative Misc Lab Order 02/23/2024 3:55 AM Tube Collected: Yes Computed Tomography 02/23/2024 5:[address] Abdomen/Pelvis w/o Contrast: CT Abdomen/Pelvis w/o Contrast Radiology Report 02/23/2024 5:29 AM Radiology Report: Radiology Report DIET & ACTIVITY Patient Activity Level: As Tolerated Patient Diet: Regular Patient Activity Restrictions: (more content not included)... [facility] 02-22-2024 Note HNO ID: [id number] Author: LORE HURTADO RN Service: ? Author Type: Registered Nurse Type: Progress Notes Filed: 02/22/2024 15:46 Note Text: Pt advised Hgb 11.9/Hct 34.4% and does not qualify for phlebotomy as ordered. Pt denies any issues, agreeable to forgo phleb today. Denied lab printout or needs. Aware of next appt and will f/u as scheduled. Lore Hurtado RN [facility] 02-22-2024 History of Presen t illness Narrative Pt advised Hgb 11.9/Hct 34.4% and does not qualify for phlebotomy as ordered. Pt denies any issues, agreeable to forgo phleb today. Denied lab printout or needs. Aware of next appt and will f/u as scheduled. Lore Hurtado RN documented in this encounter [facility] 02-15-2024 History of Presen t illness Narrative Images from the original note were not included. Allan Burr is a 38 y.o. female presents with chief complaint of Follow-up HPI: Patient went to Urgent care [facility] on since she was having breathing issues where they took her to the ER then admitted her in the hospital. She was discharged Wednesday. Is doing better but still has a cough and chest pressures. She believes to have a yeats infection from antibiotics with sx of itchiness and white discharge. History of Present Illness The patient presents for evaluation of pneumonia and low potassium. She was diagnosed with bronchitis on Wednesday and was prescribed a 3-day course of steroids and amoxicillin. However, her condition worsened by , leading to an emergency room visit. She suspects she contracted the illness from her youngest child, who also had a cough. Her child's cough persisted despite three rounds of antibiotics but has since improved. She is currently on Levaquin and reports feeling better. She also mentions that her potassium levels were found to be low and she experienced severe leg cramps last night. Additionally, she went to [facility], where it was noticed that her iron levels were too high. She was referred to a recycling worker and tested positive for hereditary hemochromatosis. She has started therapeutic phlebotomy, where a bag of blood is removed every 2 weeks. SUBJECTIVE: MEDICATIONS: ALLERGIES Current Outpatient Medications Medication Instructions albuterol HFA 90 mcg/act inhaler 2 puffs, Inhalation, Every 4 hours PRN L norgest/e.estradiol-e.estrad (Ashlyna) 0.15-0.03 &0.01 MG tablet tablet 1 tablet, Oral, Every morning levoFLOXacin (Levaquin) 750 MG tablet Take by mouth Multiple Vitamin (MULTI VITAMIN PO) Take by mouth phentermine (ADIPEX-P) 37.5 mg, Daily RT polycarbophil (Fibercon) 625 MG tablet Daily Probiotic Product (PRO-BIOTIC BLEND PO) Take by mouth Zepbound 7.5 mg, Weekly No Known Allergies PAST MEDICAL HISTORY: SOCIAL HISTORY SURGICAL HISTORY: Past Medical History: Diagnosis Date Acquired hypothyroidism (CMS/HCC) 11/11/2022 Anxiety 01/13/2022 Chronic back pain 01/12/2022 H/O gastric sleeve 11/11/2022 Insulin resistance 01/13/2022 Intractable chronic migraine without aura and without status migrainosus (CMS/HCC) 11/11/2022 Migraine (CMS/HCC) Mild obstructive sleep apnea 01/13/2022 Morbid obesity (CMS/HCC) 01/12/2022 Last Assessment & Plan: The patient may be an acceptable candidate for Revision- Laparoscopic Sleeve to Bypass Conversion. Patient will need to complete the following extensive management options, including preoperative diagnostic testing and evaluation, to qualify for surgery as a treatment for the chronic disease of morbid obesity. U PCOS (polycystic ovarian syndrome) Yeast infection recurrent Social History Tobacco Use Smoking status: Former Current packs/day: 0.00 Types: Cigarettes Quit date: 04/12/2014 Years since quittin.8 Smokeless tobacco: Never Vaping Use Vaping status: Never Used Substance Use Topics Alcohol use: Not Currently Comment: Caffeine intake: 4-5 coffee daily Drug use: Never Past Surgical History: Procedure Laterality Date CHOLECYSTECTOMY 2013 GALL BLADDER 06/2013 SLEEVE GASTROPLASTY 12/17/2016 REVIEW OF SYMPTOMS: Review of Systems All other systems reviewed and are negative. OBJECTIVE: Vitals: 02/15/24 0911 BP: 120/84 Pulse: 98 Temp: 96.9 F SpO2: 96% Physical Exam Vitals and nursing note reviewed. Constitutional: Appearance: Normal appearance. HENT: Head: Normocephalic and atraumatic. Right Ear: Tympanic membrane normal. Left Ear: Tympanic membrane normal. Nose: Nose normal. Eyes: Extraocular Movements: Extraocular movements intact. Conjunctiva/sclera: Conjunctivae normal. Pupils: Pupils are equal, round, and reactive to light. Cardiovascular: Rate and Rhythm: Normal rate and regular rhythm. Heart sounds: Normal heart sounds. Pulmonary: Effort: Pulmonary effort is normal. Breath sounds: Normal breath sounds. Decreased air movement present. Musculoskeletal: Cervical back: Normal range of motion and neck supple. Skin: General: Skin is warm and dry. Capillary Refill: Capillary refill takes less than 2 seconds. Neurological: Mental Status: She is alert and oriented to person, place, and time. ASSESSMENT AND PLAN: Assessment/Plan Diagnoses and all orders for this visit: Hypokalemia - Comprehensive metabolic panel; Future K+ on admission was 3.0. Will recheck labs today. Hereditary hemochromatosis (CMS/HCC) Has recently been diagnosed; follows with hematology and has been getting phlebotomy once every month. Pneumonia of right lower lobe due to infectious - Symptoms are much improved. Continue with levaquin as prescribed, may take cough syrup as well. Push fluids, continue to rest. No follow-ups on file. documented in this encounter [facility] 02-12-2024 Note Education Materials Infectious Disease Community-Acquired Pneumonia, Adult Pneumonia is a lung infection that causes inflammation and the buildup of mucus and fluids in the lungs. This may cause coughing and difficulty breathing. Community-acquired pneumonia is pneumonia that develops in people who are not, and have not recently been, in a hospital or other health care facility. Usually, pneumonia develops as a result of an illness that is caused by a virus, such as the common cold and the flu (influenza). It can also be caused by bacteria or fungi. While the common cold and influenza can pass from person to person (are contagious), pneumonia itself is not considered contagious. What are the causes? This condition may be caused by: ? Viruses. ? Bacteria. ? Fungi. What increases the risk? The following factors may make you more likely to develop this condition: ? Being over age 65 or having certain medical conditions, such as: ? A long-term (chronic) disease, such as: chronic obstructive pulmonary disease (COPD), asthma, heart failure, diabetes, or kidney disease. ? A condition that increases the risk of breathing in (aspirating) mucus and other fluids from your mouth and nose. ? A weakened body defense system (immune system). ? Having had your spleen removed (splenectomy). The spleen is the organ that helps fight germs and infections. ? Not cleaning your teeth and gums well (poor dental hygiene). ? Using tobacco products. ? Traveling to places where germs that cause pneumonia are present or being near certain animals or animal habitats that could have germs that cause pneumonia. What are the signs or symptoms? Symptoms of this condition include: ? A dry cough or a wet (productive) cough. ? A fever, sweating, or chills. ? Chest pain, especially when breathing deeply or coughing. ? Fast breathing, difficulty breathing, or shortness of breath. ? Tiredness (fatigue) and muscle aches. How is this diagnosed? This condition may be diagnosed based on your medical history or a physical exam. You may also have tests, including: ? Imaging, such as a chest X-ray or lung ultrasound. ? Tests of: ? The level of oxygen and other gases in your blood. ? Mucus from your lungs (sputum). ? Fluid around your lungs (pleural fluid). ? Your urine. How is this treated? Treatment for this condition depends on many factors, such as the cause of your pneumonia, your medicines, and other medical conditions that you have. For most adults, pneumonia may be treated at home. In some cases, treatment must happen in a hospital and may include: ? Medicines that are given by mouth (orally) or through an IV, including: ? Antibiotic medicines, if bacteria caused the pneumonia. ? Medicines that kill viruses (antiviral medicines), if a virus caused the pneumonia. ? Oxygen therapy. Severe pneumonia, although rare, may require the following treatments: ? Mechanical ventilation.This procedure uses a machine to help you breathe if you cannot breathe well on your own or maintain a safe level of blood oxygen. ? Thoracentesis. This procedure removes any buildup of pleural fluid to help with breathing. Follow these instructions at home: Medicines ? Take arbw-vtv-iwbfneq and prescription medicines only as told by your health care provider. ? Take cough medicine only if you have trouble sleeping. Cough medicine can prevent your body from removing mucus from your lungs. ? If you were prescribed antibiotics, take them as told by your health care provider. Do not stop taking the antibiotic even if you start to feel better. Lifestyle ? Do not drink alcohol. ? Do not use any products that contain nicotine or tobacco. These products include cigarettes, chewing tobacco, and vaping devices, such as e-cigarettes. If you need help quitting, ask your health care provider. ? Eat a healthy diet. This includes plenty of vegetables, fruits, whole grains, low-fat dairy products, and lean protein. General instructions ? Rest a lot and get at least 8 hours of sleep each night. ? Sleep in a partly upright position at night. Place a few pillows under your head or sleep in a reclining chair. ? Return to your normal activities as told by your health care provider. Ask your health care provider what activities are safe for you. ? Drink enough fluid to keep your urine pale yellow. This helps to thin the mucus in your lungs. ? If your throat is sore, gargle with a mixture of salt and water 3?4 times a day or as needed. To make salt water, completely dissolve ??1 tsp (3?6 g) of salt in 1 cup (237 mL) of warm water. ? Keep all follow-up visits. How is this prevented? You can lower your risk of developing community-acquired pneumonia by: ? Getting the pneumonia vaccine. There (more content not included)... [facility] 02-12-2024 Note [facility] Discharge Summary PERSON INFORMATION Name ALLAN BURR Age 38 Years 1985 Sex FEMALE Language Romanian PCP MARIYA HUERTA Marital Status Med Service Med/Surg Acct# Arrival 02/10/2024 22:39:00 Visit Reason Medical problem reevaluation; Cough; HYPOKALEMIA, PNEUMONIA, PNEUMONIA INVOLVING RT LUNG, FAILURE OF OUTPATIENT TREATMENT Acuity LOS 000 40:43 Address: [address] [place] [address] Comment: PROVIDER INFORMATION VITALS INFORMATION Vital Sign Triage Latest Temp Oral 36.1 DegC 36.6 DegC Temp Temporal Temp Intravascular Temp Axillary Temp Rectal 02 Sat 99 % 96 % Respiratory Rate 16 br/min 16 br/min Peripheral Pulse Rate 108 bpm 110 bpm Apical Heart Rate 110 bpm 95 bpm Blood Pressure 123 mmHg / 103 mmHg 122 mmHg / 78 mmHg Comment: MEDICAL INFORMATION Allergy Info: No known allergies Medication List: New Medications [id number], [address] [place], [place] [id number], [phone] acetaminophen-dextromethorphan (Robitussin Maximum Strength Severe Cough Plus Sore Throat 650 mg-20 mg/20 mL oral liquid) 20 Milliliter Oral (given by mouth) every 4 hours as needed as needed for cough. Refills: 0. hydrocortisone topical (hydrocortisone 0.5% topical cream) 1 yessica Topical (on the skin) 2 times per day. Refills: 0. levoFLOXacin (levoFLOXacin 750 mg oral tablet) 1 tab(s) Oral (given by mouth) every 24 hours. for 7 Days. Refills: 0. Medications That Were Updated - Follow Below Instructions Other Medications Updated: ascorbic acid (Vitamin C) 250 Milligram Oral (given by mouth) every day. Updated: ethinyl estradiol-levonorgestrel (Amethia oral tablet) 1 tab(s) Oral (given by mouth) every day. Updated: tirzepatide (tirzepatide 7.5 mg/0.5 mL subcutaneous solution) 7.5 Milligram Subcutaneous (under the skin) every week. Medications to Continue That Have Not Changed Other Medications albuterol (Albuterol (Eqv-ProAir HFA) 90 mcg/inh inhalation aerosol) 2 inh Inhale (breathe in) every 4 hours as needed wheezing. multivitamin, (Classic ) 1 tab(s) Oral (given by mouth) every day. phentermine (phentermine 37.5 mg oral tablet) TAKE 1 TABLET BY MOUTH ONCE DAILY. No Longer Take the Following Medications amoxicillin-clavulanate (amoxicillin-clavulanate 875 mg-125 mg oral tablet) omeprazole (omeprazole 20 mg oral delayed release capsule) 1 cap(s) Oral (given by mouth) every day. Comment: Lab and Radiology Results Laboratory or Other Results This Visit (last charted value for your 02/10/2024 visit) Hematology 02/11/2024 5:30 AM Hct: 30.2 % -- Normal range between ( 33.7 and 40.4 ) Hgb: 10.6 gm/dL -- Normal range between ( 11.3 and 15.9 ) MCH: 30 pg -- Normal range between ( 24 and 34 ) MCHC: 35 gm/dL -- Normal range between ( 26 and 37 ) MCV: 87 fL -- Normal range between ( 81 and 100 ) MPV: 7.0 fL -- Normal range between ( 6.3 and 10.2 ) Platelet: 300 x103/mcL -- Normal range between ( 138 and 427 ) RBC: 3.47 x106/mcL -- Normal range between ( 3.70 and 5.30 ) RDW: 13.1 % -- Normal range between ( 11.5 and 15.0 ) WBC: 7.1 x103/mcL -- Normal range between ( 3.5 and 10.5 ) Auto Eos %: 0.0 % -- Normal range between ( 0.9 and 4.0 ) Auto Lymph %: 9 % -- Normal range between ( 14 and 48 ) Auto Neut %: 86 % -- Normal range between ( 44 and 88 ) Eos Abs#: 0.0 x103/mcL -- Normal range between ( 0.0 and 0.4 ) Lymph Abs#: 0.6 x103/mcL -- Normal range between ( 1.3 and 2.9 ) [place] Abs#: 0.3 x103/mcL -- Normal range between ( 0.0 and 0.8 ) Auto Baso %: 0.1 % -- Normal range between ( 0.2 and 2.0 ) Auto [place] %: 5 % -- Normal range between ( 1 and 12 ) Baso Abs#: 0.0 x103/mcL -- Normal range between ( 0.0 and 0.2 ) Neut Abs#: 6.1 x103/mcL -- Normal range between ( 1.5 and 9.2 ) Coagulation 02/10/2024 4:55 PM INR: 0.99 -- Normal range between ( 0.91 and 1.11 ) PT: 10.3 second(s) -- Normal range between ( 9.7 and 11.8 ) Chemistry 02/12/2024 3:22 PM Potassium Level: 3.0 mmol/L -- Normal range between ( 3.6 and 5.1 ) 02/12/2024 9:40 AM Creatinine Level: 0.57 mg/dL -- Normal range between ( 0.60 and 1.30 ) BUN: 8 mg/dL -- Normal range between ( 8 and 26 ) Chloride Level: 106 mmol/L -- Normal range between ( 101 and 111 ) CO2: 24 mmol/L -- Normal range between ( 21 and 32 ) Glucose Level: 95.0 mg/dL -- Normal range between ( 74.0 and 118.0 ) Magnesium: 1.90 mg/dL -- Normal range between ( 1.80 and 2.50 ) Osmolality: 274 mOsm/L Sodium Level: 138.0 mmol/L -- Normal range between ( 136.0 and 144.0 ) Anion Gap: 10.5 mmol/L -- Normal range between ( 5.0 and 19.0 ) Calcium Level: 7.7 mg/dL -- Normal range between ( 8.9 and 10.3 ) BUN/Creat Ratio: 14.0 -- Normal range between ( 4.6 and 16.2 ) eGFR AA: >60 mL/min/1.73m2 eGFR Non AA: >60 mL/min/1.73m2 02/11/2024 5:30 AM Albumin Level: 2.5 gm/dL -- Normal range between ( 3.5 and 5.0 ) Alk Phos: 72 IU/L -- Norm (more content not included)... [facility] 02-10-2024 Telephone encounter Note I was contacted by [facility] regarding this patient, a 38 year old woman who presented to the ED with a cough- rx with amoxicillin starting Wednesday CXR with RLL pneumonia Pt mildly tachycardic but not hypoxic or tachypneic Labs otherwise unremarkable except for K of 3.0 Sending facility's hospitalist declined to accept patient- pt requesting transfer here Accepted pt to Inpatient Telemetry [facility] with diagnosis Community Acquired Pneumonia Dagoberto Mendez MD 02/10/242039 [facility] Work Phone: 02-10-2024 Miscellaneous Notes I was contacted by [facility] regarding this patient, a 38 year old woman who presented to the ED with a cough- rx with amoxicillin starting Wednesday CXR with RLL pneumonia Pt mildly tachycardic but not hypoxic or tachypneic Labs otherwise unremarkable except for K of 3.0 Sending facility's hospitalist declined to accept patient- pt requesting transfer here Accepted pt to Inpatient Telemetry [facility] with diagnosis Community Acquired Pneumonia Dagoberto Mendez MD 02/10/242039 documented in this encounter [facility] 02-10-2024 Note Patient Education Ma terials Follows: [facility] 02-08-2024 History of Presen t illness Narrative Prescription sent documented in this encounter [facility] 02-07-2024 History of Presen t illness Narrative Images from the original note were not included. Subjective Patient ID: Allan Burr is a 38 y.o. female who presents for URI. URI Associated symptoms include coughing, headaches, a sore throat and wheezing. Pertinent negatives include no chest pain, ear pain, rash or rhinorrhea. Cough This is a new problem. The current episode started in the past 7 days. The problem has been rapidly worsening. The problem occurs every few minutes. The cough is Productive of sputum. Associated symptoms include chills, a fever, headaches, myalgias, a sore throat, shortness of breath, sweats and wheezing. Pertinent negatives include no chest pain, ear congestion, ear pain, heartburn, hemoptysis, nasal congestion, postnasal drip, rash, rhinorrhea or weight loss. Nothing aggravates the symptoms. Review of Systems Constitutional: Positive for chills and fever. Negative for weight loss. HENT: Positive for sore throat. Negative for ear pain, postnasal drip and rhinorrhea. Respiratory: Positive for cough, shortness of breath and wheezing. Negative for hemoptysis. Cardiovascular: Negative for chest pain. Gastrointestinal: Negative for heartburn. Musculoskeletal: Positive for myalgias. Skin: Negative for rash. Neurological: Positive for headaches. Objective Physical Exam Vitals reviewed. Cardiovascular: Rate and Rhythm: Normal rate and regular rhythm. Pulses: Normal pulses. Heart sounds: Normal heart sounds. Pulmonary: Effort: Pulmonary effort is normal. Breath sounds: Examination of the right-upper field reveals decreased breath sounds. Examination of the left-upper field reveals decreased breath sounds. Examination of the right-lower field reveals wheezing. Examination of the left-lower field reveals wheezing. Decreased breath sounds and wheezing present. Abdominal: General: Abdomen is flat. Bowel sounds are normal. Palpations: Abdomen is soft. Musculoskeletal: General: Normal range of motion. Skin: General: Skin is warm and dry. Neurological: General: No focal deficit present. Mental Status: She is oriented to person, place, and time. Assessment/Plan Diagnoses and all orders for this visit: Acute left otitis media - amoxicillin-clavulanate (Augmentin) 875-125 MG tablet; Take 1 tablet (875 mg) by mouth in the morning and 1 tablet (875 mg) before bedtime. Do all this for 7 days. Fever, unspecified fever cause - STATUS COVID-19/FLU Wheezing - predniSONE (Deltasone) 10 MG tablet; Take 1 tablet (10 mg) by mouth in the morning and 1 tablet (10 mg) before bedtime. Do all this for 3 days. - albuterol HFA 90 mcg/act inhaler; Inhale 2 puffs every 4 (four) hours if needed for wheezing Bronchitis Take medications as prescribed. Seek immediate medical attention if symptoms worsen or don't improve. Answers submitted by the patient for this visit: Cough Questionnaire (Submitted on 02/07/2024) Chief Complaint: Cough Chronicity: new Onset: in the past 7 days Progression since onset: rapidly worsening Frequency: every few minutes Cough characteristics: productive of sputum chest pain: No chills: Yes ear congestion: No ear pain: No fever: Yes headaches: Yes heartburn: No hemoptysis: No myalgias: Yes nasal congestion: No postnasal drip: No rash: No rhinorrhea: No shortness of breath: Yes sore throat: Yes sweats: Yes weight loss: No wheezing: Yes Aggravated by: nothing documented in this encounter [facility] 02-02-[address] - 02/02/2024 4:02 PM EDT 1. Protein: Continue to strive for 87 g protein per day. Eat protein first at all meals. Lean meats, low fat/part skim dairy products, peanut butter, eggs, beans. 2. Eat 4 small meals per day or 3 meals and 1-2 small snacks for additional protein 3. Fluids: 64 oz per day, minimum. No carbonation, no caffeine, no calories, no alcohol. 4. Vitamin/minerals: Take daily bariatric vitamins, including: - Six Apart: 1 Bariatric Multivitamin w/o iron (capsule or chewable) and 5525-8203 mg calcium citrate per day 5. Exercise: strive for daily activity - combine strength training and cardio for best workouts. Goal is 30 minutes 5-6x per week. -try fsboWOW videos or LoyalBlocks videos to incorporate the kids 6. Practice these: Eat in this order protein first, vegetable and fruit second and whole grain carbohydrates last. * Separate eating and drinking by 30 minutes * Chew your food 20-30x per bite * Meals should last 30 minutes. 7. Aim for 1600 calories and 75-100 gm carbs (including 15 gm fiber) per day Nutrition Monitoring & Evaluation: 1-2 pounds weight loss per week Need for Follow up: April (after Nicole visit), [phone] documented in this encounter [facility] 02-02-2024 Telephone encounter Note I signed. Thanks [facility] 02-02-2024 Miscellaneous Notes I signed. Thanks Please sign standing CBC order for phlebotomy. Thanks Wicho Maza RN documented in this encounter [facility] 02-02-2024 Telephone encounter Note Please sign standing CBC order for phlebotomy. Thanks Wicho Maza RN [facility] 02-02-2024 History of Presen t illness Narrative [facility] Nutrition Therapy: Virtual Consult - Initial Assessment I have communicated my name and active licensure. The patient s identity and physical location were verified at the time of this visit. Either the patient or their legal account executive sales representative has been informed of the risks and benefits of -- and alternatives to -- treatment through a remote evaluation and consents to proceed with the evaluation remotely. Nutrition Diagnosis: Altered Gastrointestinal Tract Function, related to, S/P bariatric surgery, as evidenced by patient update and PSH and Overweight/obesity, related to, food/nutrition - related knowledge deficit, as evidenced by BMI above normative standard for age and gender. RECOMMENDED MALNUTRITION DIAGNOSIS: NO MALNUTRITION IDENTIFIED NUTRITION CARE PLAN Nutrition Intervention 02/02/2024: Modify type and amount of food and beverage 1. Protein: Continue to strive for 87 g protein per day. Eat protein first at all meals. Lean meats, low fat/part skim dairy products, peanut butter, eggs, beans. 2. Eat 4 small meals per day or 3 meals and 1-2 small snacks for additional protein 3. Fluids: 64 oz per day, minimum. No carbonation, no caffeine, no calories, no alcohol. 4. Vitamin/minerals: Take daily bariatric vitamins, including: - Six Apart: 1 Bariatric Multivitamin w/o iron (capsule or chewable) and 3285-0089 mg calcium citrate per day 5. Exercise: strive for daily activity - combine strength training and cardio for best workouts. Goal is 30 minutes 5-6x per week. -try YouTube videos or LoyalBlocks videos to incorporate the kids 6. Practice these: Eat in this order protein first, vegetable and fruit second and whole grain carbohydrates last. * Separate eating and drinking by 30 minutes * Chew your food 20-30x per bite * Meals should last 30 minutes. 7. Aim for 1600 calories and 75-100 gm carbs (including 15 gm fiber) per day Nutrition Monitoring & Evaluation: 1-2 pounds weight loss per week Need for Follow up: April (after Nicole visit), [phone] Patient presents for initial nutrition Virtual Consult to discuss medical weight management in the setting of weight regain following bariatric surgery. Height and weight discussed today. Presents with Body mass index is 27.18 kg/m .. Significant medical comorbidities include hemachromatosis. LSG in 2017 ([facility]) with pre-surgical weight of 275 pounds and resulting fernando weight of 209 pounds. Patient reports weight regain likely secondary to post- weight retention (x2). Patient reports sleep is broken and stress is manageable, however high financial stress. Previous diet attempts include self-directed diets, commercial programs, and AOM therapy. Currently being treated by Vijaya Marquis CNP with Phentermine and Wegovy and reports bridging to Zepbound in the next month or so. Patient notes benefits of medication include reduced appetite/cravings and increased energy. Patient has maintained pounds since initial OM visit (174#). Reports desired weight of unknown pounds. Diet recall indicates consistent meal pattern with no missed meals. Meals are protein-dense and balanced. Tracking intake most days, averaging 9821-0270 calories which is likely exceeding needs for weight loss. Utilizing protein shakes as meal replacement routinely. Fluids meeting recommendations in type and amount. Physical activity is sporadic and falls below recommendations. Taking most bariatric vitamins, however not taking calcium citrate due to history of kidney stones. 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 Resting Metabolic Rate: 1502 Malnutrition Screening Significant unintentional weight loss? No Eating less than 75% of usual intake for more than 2 weeks? No Potential Signs of Inflammation: no identifiable sources Education Materials Provided: None this visit READINESS TO LEARN Cognitive ability: Alert and oriented Motivation to learn: Interested Family support: Unable to assess - Family not present Instruction provided to: Patient Patient learns best by: Multiple Methods Factors affecting learning: None Physical limitations affecting learning: None Referred by: Benitez CAMARA Billing Type: Initial Assess/15 min 2 units SIGNATURE: Leigha Lake RD PATIENT NAME: Allan Burr DATE: February 02, 2024 TIME: 3:21 PM PAGER: N/A documented in this encounter [facility] 02-02-2024 Note HNO ID: [id number] Author: LEIGHA LAKE RD Service: ? Author Type: Registered Dietitian Type: Progress Notes Filed: 02/02/2024 16:03 Note Text: [facility] Nutrition Therapy: Virtual Consult - Initial Assessment I have communicated my name and active licensure. The patient?s identity and physical location were verified at the time of this visit. Either the patient or their legal account executive sales representative has been informed of the risks and benefits of -- and alternatives to -- treatment through a remote evaluation and consents to proceed with the evaluation remotely. Nutrition Diagnosis: Altered Gastrointestinal Tract Function, related to, S/P bariatric surgery, as evidenced by patient update and PSH and Overweight/obesity, related to, food/nutrition - related knowledge deficit, as evidenced by BMI above normative standard for age and gender. RECOMMENDED MALNUTRITION DIAGNOSIS: NO MALNUTRITION IDENTIFIED NUTRITION CARE PLAN Nutrition Intervention 02/02/2024: Modify type and amount of food and beverage 1. Protein: Continue to strive for 87 g protein per day. Eat protein first at all meals. Lean meats, low fat/part skim dairy products, peanut butter, eggs, beans. 2. Eat 4 small meals per day or 3 meals and 1-2 small snacks for additional protein 3. Fluids: 64 oz per day, minimum. No carbonation, no caffeine, no calories, no alcohol. 4. Vitamin/minerals: Take daily bariatric vitamins, including: - Six Apart: 1 Bariatric Multivitamin w/o iron (capsule or chewable) and 8007-8436 mg calcium citrate per day 5. Exercise: strive for daily activity - combine strength training and cardio for best workouts. Goal is 30 minutes 5-6x per week. -try fsboWOW videos or LoyalBlocks videos to incorporate the kids 6. Practice these: Eat in this order protein first, vegetable and fruit second and whole grain carbohydrates last. * Separate eating and drinking by 30 minutes * Chew your food 20-30x per bite * Meals should last 30 minutes. 7. Aim for 1600 calories and 75-100 gm carbs (including 15 gm fiber) per day Nutrition Monitoring AND Evaluation: 1-2 pounds weight loss per week Need for Follow up: April (after Nicole visit), [phone] Patient presents for initial nutrition Virtual Consult to discuss medical weight management in the setting of weight regain following bariatric surgery. Height and weight discussed today. Presents with Body mass index is 27.18 kg/m?.. Significant medical comorbidities include hemachromatosis. LSG in 2017 ([facility]) with pre-surgical weight of 275 pounds and resulting fernando weight of 209 pounds. Patient reports weight regain likely secondary to post- weight retention (x2). Patient reports sleep is broken and stress is manageable, however high financial stress. Previous diet attempts include self-directed diets, commercial programs, and AOM therapy. Currently being treated by Vijaya Marquis CNP with Phentermine and Wegovy and reports bridging to Zepbound in the next month or so. Patient notes benefits of medication include reduced appetite/cravings and increased energy. Patient has maintained pounds since initial OM visit (174#). Reports desired weight of unknown pounds. Diet recall indicates consistent meal pattern with no missed meals. Meals are protein-dense and balanced. Tracking intake most days, averaging 8275-4384 calories which is likely exceeding needs for weight loss. Utilizing protein shakes as meal replacement routinely. Fluids meeting recommendations in type and amount. Physical activity is sporadic and falls below recommendations. Taking most bariatric vitamins, however not taking calcium citrate due to history of kidney stones. 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 Resting Metabolic Rate: 1502 Malnutrition Screening Significant unintentional weight loss? No Eating less than 75% of usual intake for more than 2 weeks? No Potential Signs of Inflammation: no identifiable sources Education Materials Provided: None this visit READINESS TO LEARN Cognitive ability (more content not included)... [facility] 01-26-2024 Instructions Nicole Marquis APRN.CNP - 01/26/2024 7:53 PM EDT Please follow up with Web Applications Architect for annual visit documented in this encounter [facility] 01-26-2024 History of Presen t illness Narrative Images from the original note were not included. BMI Obesity Medicine PostOp Follow Up Visit [facility] Visit January 26, 2024 I have communicated my name and active licensure. The patient's identity and physical location were verified at the time of this visit. Either the patient or their legal account executive sales representative has been informed of the risks [...] PROCEDURE Visit: 5 years Today's Visit: BMI 27.18 kg/(m^2) Last Visit: Wt: 117 kg (258 lb) BMI: 40.25 kg/(m^2) COMPLICATIONS SINCE LAST VISIT?: NONE BEKA: Allan Burr is a 38 year old female s/p Sleeve gastrectomy on12/17/2016 who responded well to surgery, losing approximately 25% of her total body weight. Post-OP course complicated by weight recurrence after 2 pregnancies.. Nearly all of her weight-related medical comorbidities have resolved or improved after surgery. Body mass index is 28.24 kg/m .) She has been complaint with her vitamin and mineral supplementation. Diet and exercise habits as above. Asymptomatic, taking required supplements as recommended, no signs or symptoms of vitamin deficiency. She continues to be motivated to lose weight. Agreeable to continue phentermine and Wegovy. Bridge to Zepbound if insurance allows, see if it improves side effects of fatigue and nausea. Plan: EDUCATION: Encouraged to continue with healthy lifestyle changes and incorporate cardiovascular and resistance training, Discussed weight loss expectations after bariatric and metabolic surgery, Advised PT to avoid NSAIDs, smoking tobacco given increased risk of marginal ulcers, Compliant w/ bariatric vitamins. 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 Doing well. Just finished her last of the Wegovy injections and plans on starting Zepbound. Is working with hematology. Was found to have hemochromatosis. Weight is decreased since last visit. AOM Hx: Was going to a [email or web address] spa and getting semaglutide injections, but it is costly. Metformin - GI upset Contrave SE- bad dreams, felt like she was in a haze Topiramate took when she was younger for migraines Had kidney stone while . Diet: Increasing water intake Web Applications Architect consult still pending Exercise:increased Sleep: mild PILAR, not on CPAP Taking required vitamins and minerals: Yes One-a-day iron free Calcium: No Multivitamin & Minerals: 1 per day Iron Supplement: No Vitamin B12: included in multivitamin Vitamin D3: included in multi-vitamin Other: N/A Are you attending any Support Groups? Not known Current Outpatient Medications Medication Sig Phentermine HCl 37.5 mg tablet Take 1 tablet by mouth once daily for 90 days. omeprazole (PRILOSEC) 20 mg capsule TAKE 1 CAPSULE ONCE DAILY ondansetron (ZOFRAN) 4 mg tablet take 1 tablet by mouth every 6 hours as needed MULTIVITAMIN ORAL Take by mouth. Lactobacillus acidophilus (PROBIOTIC ORAL) Take by mouth. multivit-min/iron/folic/[id number] (HAIR, SKIN AND NAILS ADVANCED ORAL) Take by mouth. calcium polycarbophil (FIBERCON ORAL) Take by mouth. tirzepatide, weight loss (ZEPBOUND) 7.5 mg/0.5 mL pen injector Inject 7.5 mg subcutaneously one time a week. L-NORGEST/E.ESTRADIOL-E.ESTRAD (AMETHIA ORAL) Take 1 tablet by mouth once daily. No current facility-administered medications for this visit. Patient Active Problem List Hereditary hemochromatosis (HCC) Acquired hypothyroidism Intractable chronic migraine without aura [...] Use Smoking status: Former Current packs/day: 0.00 Average packs/day: 2.0 packs/day for 14.0 years (28.0 ttl pk-yrs) Types: Cigarettes Start date: 04/12/2000 Quit date: 04/12/2014 Years since quittin.7 Smokeless tobacco: Never Substance Use Topics Alcohol use: No Drug use: No ROS: Denies nausea, vomiting, dumping syndrome, reactive hypoglycemia, gustatory rhinorrhea, Denies abdominal pain, constipation, diarrhea, melena, hematochezia, Denies paresthesias, gait abnormality, fatigue, weakness, lower extremity edema. 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 PHYSICAL EXAM: Vital Signs: Ht 170.5 cm (5' 7.13 ) Wt 79 kg (174 lb 3.2 oz) LMP 08/25/2023 (Exact Date) BMI 27.18 kg/m Body mass index is 27.18 kg/m . Physical exam: VIDEO EXAM: (if [...] 12/18/2016 2.12 1.00 - 4.00 k/uL Final [place]% 12/18/2016 6.4 % Final Abs [place] 12/18/2016 0.64 0.00 - 0.86 k/uL Final [...] 2.6 (L) 2.7 - 4.8 mg/dL Final CMP Glucose (mg/dL) Date Value 12/30/2023 88 12/06/2023 80 12/18/2016 90 11/20/2016 87 Potassium (mmol/L) Date Value 12/30/2023 4.2 12/06/2023 4.7 12/18/2016 4.4 11/20/2016 4.4 Sodium (mmol/L) Date Value 12/30/2023 138 12/06/2023 141 12/18/2016 138 11/20/2016 136 Chloride (mmol/L) Date Value 12/30/2023 106 12/06/2023 107 12/18/2016 104 11/20/2016 100 CO2 (mmol/L) Date Value 12/30/2023 25 12/06/2023 26 12/18/2016 20 11/20/2016 20 Creatinine (mg/dL) Date Value 12/30/2023 0.79 12/06/2023 0.78 12/18/2016 0.51 11/20/2016 0.61 BUN (mg/dL) Date Value 12/30/2023 16 12/06/2023 17 12/18/2016 5 11/20/2016 19 Anion Gap (mmol/L) Date Value 12/30/2023 7 12/06/2023 8 12/18/2016 14 11/20/2016 16 Calcium (mg/dL) Date Value 12/18/2016 8.8 11/20/2016 9.2 Calcium, Total (mg/dL) Date Value 12/30/2023 9.0 12/06/2023 8.9 Protein, Total (g/dL) Date Value 12/30/2023 6.8 12/06/2023 6.5 11/20/2016 7.0 08/31/2016 7.4 Albumin (g/dL) Date Value 12/30/2023 4.3 12/06/2023 4.2 11/20/2016 4.1 08/31/2016 4.4 Bilirubin, Total (mg/dL) Date Value 12/30/2023 0.5 12/06/2023 0.4 11/20/2016 0.3 08/31/2016 0.5 Alkaline Phosphatase (U/L) Date Value 12/30/2023 78 12/06/2023 81 11/20/2016 100 08/31/2016 95 AST (U/L) Date Value 12/30/2023 21 12/06/2023 18 11/20/2016 26 08/31/2016 18 ALT (U/L) Date Value 12/30/2023 18 12/06/2023 17 11/20/2016 20 08/31/2016 11 CBC WBC (k/uL) Date Value 01/13/2024 6.30 RBC (m/uL) Date Value 01/13/2024 4.51 Hemoglobin (g/dL) Date Value 01/13/2024 14.1 Hematocrit (%) Date Value 01/13/2024 39.0 MCV (fL) Date Value 01/13/2024 86.5 MCH (pg) Date Value 01/13/2024 31.3 MCHC (g/dL) Date Value 01/13/2024 36.2 (H) RDW-CV (%) Date Value 01/13/2024 11.8 Platelet Count (k/uL) Date Value 01/13/2024 263 MPV (fL) Date Value 01/13/2024 9.0 Lipid Panel Cholesterol, Total (mg/dL) Date Value 12/06/2023 188 12/18/2022 200 08/31/2016 193 HDL Cholesterol (mg/dL) Date Value 12/06/2023 52 12/18/2022 45 08/31/2016 51 LDL Cholesterol (mg/dL) Date Value 12/06/2023 126 12/18/2022 140 08/31/2016 129 Triglyceride (mg/dL) Date Value 12/06/2023 49 12/18/2022 74 08/31/2016 65 Hgb A1C Hemoglobin A1C Date Value Ref Range Status 12/06/2023 4.4 4.3 - 5.6 % Final Comment: [place] [employer] guidelines indicate that patients with HgbA1c in the range 5.7-6.4% are at increased risk for development of diabetes, and intervention by lifestyle modification may be beneficial. HgbA1c greater or equal to 6.5% is considered diagnostic of diabetes. 12/18/2022 4.5 4.3 - 5.6 % Final Comment: [place] [employer] guidelines indicate that patients with HgbA1c in the range 5.7-6.4% are at increased risk for development of diabetes, and intervention by lifestyle modification may be beneficial. HgbA1c greater or equal to 6.5% is considered diagnostic of diabetes. 08/31/2016 5.1 4.3 - 5.6 % Final Vitamin B12 Date Value Ref Range Status 12/06/2023 1,273 (H) 232 - 1,245 pg/mL Final 12/18/2022 >2,000 (H) 232 - 1,245 pg/mL Final Folate Date Value Ref Range Status 12/06/2023 15.5 >4.7 ng/mL Final 12/18/2022 >20.0 >4.7 ng/mL Final Comment: A result of > 20 ng/mL is not necessarily indicative of a pathologic or treatable condition: it reflects a limitation of the test methodology. Assay reference range: 4.8 to 24.2 ng/mL. Suitable for detection of folate deficiency. Reference: Folate III (Folate III) [package insert V 1.0 Romanian]. [facility], [place], [place]: February 2015. FIB-4 Calculation: 0.73 at 01/13/2024 3:14 PM Calculated from: SGOT/AST: 21 U/L at 12/30/2023 8:56 AM SGPT/ALT: 18 U/L at 12/30/2023 8:56 AM Platelets: 263 k/uL at 01/13/2024 3:14 PM Age: 38 years ACTIVE PROBLEM LIST Pcos (Polycystic Ovarian Syndrome) S/P Laparoscopic Sleeve Gastrectomy Gestational Diabetes Mellitus in , Unspecified Control History of Oligohydramnios Personal History of Nicotine Dependence Streptococcus B [place] Complicating Childbirth Chronic Fatigue Anxiety Acquired Hypothyroidism Chronic Back Pain Chronic Joint Pain Insulin Resistance Syndrome Intractable Chronic Migraine Without Aura and Without Status Migrainosus Kidney Stones Dorsalgia, Unspecified Mild Obstructive Sleep Apnea Hereditary Hemochromatosis (Hcc) Assessment Allan Burr is a 38 year old female s/p Sleeve gastrectomy on12/17/2016 who responded well to surgery, losing approximately 25% of her total body weight. Post-OP course complicated by weight recurrence after 2 pregnancies.. Nearly all of her weight-related medical comorbidities have resolved or improved after surgery. Body mass index is 27.18 kg/m .) She has been complaint with her vitamin and mineral supplementation. Diet and exercise habits as above. Asymptomatic, taking required supplements as recommended, no signs or symptoms of vitamin deficiency. She continues to be motivated to lose weight. Agreeable to continue phentermine and bridge to Zepbound. Plan: EDUCATION: Encouraged to continue with healthy lifestyle changes and incorporate cardiovascular and resistance training, Discussed weight loss expectations after bariatric and metabolic surgery, Advised PT to avoid NSAIDs, smoking tobacco given increased risk of marginal ulcers, Compliant w/ bariatric vitamins. 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: Today: NA, just had drawn w/ PCP Annual labs due in December 2024 CBC W DIFF, CMP, Vitamin B1, Vitamin B12, Folate, PTH Intact, Vitamin D25OH, Iron/TIBC/Ferritin, Lipids, and HBA1C DISPOSITION: Return 3 month to Post-op follow up/ individual office visit - consider addition of Topiramate for headaches or sleep study to r/o PILAR - continue omeprazole for GERD - bridge to Zepbound 7.5 mg - zofran prn for nausea - continue 1/2 tab of phentermine as needed - see RDN for annual visit Nicole Marquis APRN.CNP BMI Obesity Medicine I spent 25 minutes in the visit, with more than 50% of the total [id number] time of the visit in counseling / coordination of care. All documentation from previous visit was copied and pasted, documentation has been reviewed and edited as necessary for today's visit. documented in this encounter [facility] 01-26-2024 Note HNO ID: [id number] Author: NICOLE MARQUIS APRN.CNP Service: ? Author Type: Nurse Practitioner Type: Progress Notes Filed: 01/26/2024 19:54 Note Text: BMI Obesity Medicine PostOp Follow Up Visit [facility] Visit January 26, 2024 I have communicated my name and active licensure. The patient's identity and physical location were verified at the time of this visit. Either the patient or their legal account executive sales representative has been informed of the risks [...] PROCEDURE Visit: 5 years Today's Visit: BMI 27.18 kg/(m2) Last Visit: Wt: 117 kg (258 lb) BMI: 40.25 kg/(m2) COMPLICATIONS SINCE LAST VISIT?: NONE BEKA: Allan Burr is a 38 year old female s/p Sleeve gastrectomy on12/17/2016 who responded well to surgery, losing approximately 25% of her total body weight. Post-OP course complicated by weight recurrence after 2 pregnancies.. Nearly all of her weight-related medical comorbidities have resolved or improved after surgery. Body mass index is 28.24 kg/m?.) She has been complaint with her vitamin and mineral supplementation. Diet and exercise habits as above. Asymptomatic, taking required supplements as recommended, no signs or symptoms of vitamin deficiency. She continues to be motivated to lose weight. Agreeable to continue phentermine and Wegovy. Bridge to Zepbound if insurance allows, see if it improves side effects of fatigue and nausea. Plan: EDUCATION: Encouraged to continue with healthy lifestyle changes and incorporate cardiovascular and resistance training, Discussed weight loss expectations after bariatric and metabolic surgery, Advised PT to avoid NSAIDs, smoking tobacco given increased risk of marginal ulcers, Compliant w/ bariatric vitamins. 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 Doing well. Just finished her last of the Wegovy injections and plans on starting Zepbound. Is working with hematology. Was found to have hemochromatosis. Weight is decreased since last visit. AOM Hx: Was going to a med spa and getting semaglutide injections, but it is costly. Metformin - GI upset Contrave SE- bad dreams, felt like she was in a haze Topiramate took when she was younger for migraines Had kidney stone while . Diet: Increasing water intake Web Applications Architect consult still pending Exercise:increased Sleep: mild PILAR, not on CPAP Taking required vitamins and minerals: Yes One-a-day iron free Calcium: No Multivitamin AND Minerals: 1 per day Iron Supplement: No Vitamin B12: included in multivitamin Vitamin D3: included in multi-vitamin Other: N/A Are you attending any Support Groups? Not known Current Outpatient Medications Medication Sig Phentermine HCl 37.5 mg tablet Take 1 tablet by mouth once daily for 90 days. omeprazole (PRILOSEC) 20 mg capsule TAKE 1 CAPSULE ONCE DAILY ondansetron (ZOFRAN) 4 mg tablet take 1 tablet by mouth every 6 hours as needed MULTIVITAMIN ORAL Take by mouth. Lactobacillus acidophilus (PROBIOTIC ORAL) Take by mouth. multivit-min/iron/folic/rnp211 (HAIR, SKIN AND NAILS ADVANCED ORAL) Take by mouth. calcium polycarbophil (FIBERCON ORAL) Take by mouth. tirzepatide, weight loss (ZEPBOUND) 7.5 mg/0.5 mL pen injector Inject 7.5 mg subcutaneously one time a week. L-NORGEST/E.ESTRADIOL-E.ESTRAD (AMETHIA ORAL) Take 1 tablet by mouth once daily. No current facility-administered medications for this visit. Patient Active Problem List Hereditary hemochromatosis (HCC) Acquired hypothyroidism Intractable chronic migraine without aura and without status migrainosus Anxiety Insulin resistance syndrome Mild obstructive sleep apnea Chronic fatigue Chronic back pain Chronic joint pain Kidney stones Personal history of nicotine dependence Streptococcus B carrier state complicating childbirth Gestational diabetes mellitus in , unspecified control History of oligohydramnios Dorsalgia, unspecified S/P l (more content not included)... [facility] 01-13-2024 Telephone encounter Note Discussed Phlebotomy parameters with Dr Taylor. Order clarification: phlebotomy if Hgb is greater than 12 or Hct greater than 42 Leesa Voss RN [facility] 01-13-2024 Miscellaneous Notes Discussed Phlebotomy parameters with Dr Taylor. Order clarification: phlebotomy if Hgb is greater than 12 or Hct greater than 42 Leesa Voss RN documented in this encounter [facility] 01-06-2024 Instructions Titus Taylor MD - 01/06/2024 10:51 AM EDT Will do phlebotomy every 2 weeks for 4 times F/u in 2 months. documented in this encounter [facility] 01-06-2024 History of Presen t illness Narrative PATIENT NAME: Allan Burr CLINIC NO.: [id number] ATTENDING PHYSICIAN: Titus Taylor MD DATE OF SERVICE: January 06, 2024 Some of the elements of this note have been copied from previous progress note dated 12/29/23. All the information has been reviewed carefully. Dear Dr. Nicole Marquis [address] [facility] [id number] thank you for referring Allan Burr for an opinion regarding elevated iron levels. CHIEF COMPLAINT: Elevated iron levels HPI: Allan Burr is a 38 year old year old female referred to us for elevated iron levels. 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 Updated visit 01/06/24: Doing well. 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 Current Outpatient Medications Medication Sig ondansetron (ZOFRAN) 4 mg tablet take 1 tablet by mouth every 6 hours as needed MULTIVITAMIN ORAL Take by mouth. Lactobacillus acidophilus (PROBIOTIC ORAL) Take by mouth. multivit-min/iron/folic/htl100 (HAIR, SKIN AND NAILS ADVANCED ORAL) Take by mouth. calcium polycarbophil (FIBERCON ORAL) Take by mouth. tirzepatide, weight loss (ZEPBOUND) 7.5 mg/0.5 mL pen injector Inject 7.5 mg subcutaneously one time a week. omeprazole (PRILOSEC) 20 mg capsule TAKE 1 CAPSULE ONCE DAILY Phentermine HCl 37.5 mg tablet Take 1 tablet by mouth once daily for 90 days. semaglutide, weight loss, (WEGOVY) 1.7 mg/0.75 mL pen injector Inject 0.75 mL subcutaneously one time a week. semaglutide, weight loss, (WEGOVY) 2.4 mg/0.75 mL pen injector Inject 0.75 mL subcutaneously one time a week. Patient should start on September 07, 2023. L-NORGEST/E.ESTRADIOL-E.ESTRAD (AMETHIA ORAL) Take 1 tablet by mouth once daily. No current facility-administered medications for this visit. ALLERGIES No Known Allergies PAST MEDICAL HISTORY Diagnosis Date PCOS (polycystic ovarian syndrome) PAST SURGICAL HISTORY Procedure Laterality Date LAPS SURG CHOLECYSTECTOMY W/CHOLANGIOGRAPHY 2014 FAMILY HISTORY Problem Relation Age of Onset Osteoporosis Mother Heart disease Father Hypertension Father Diabetes Daughter type 1 Social History Tobacco Use Smoking status: Former Current packs/day: 0.00 Average packs/day: 2.0 packs/day for 14.0 years (28.0 ttl pk-yrs) Types: Cigarettes Start date: 04/12/2000 Quit date: 04/12/2014 Years since quittin.7 Smokeless tobacco: Never Substance Use Topics Alcohol use: No Drug use: No REVIEW OF SYSTEMS GENERAL: No weight loss, malaise or fevers. No night sweats. HEENT: Negative for headaches, No changes in hearing or vision, no nose bleeds or other nasal problems. RESPIRATORY: Negative for cough, wheezing and shortness of breath CARDIOVASCULAR: Negative for chest pain, leg swelling and palpitations GI: Negative for abdominal discomfort, blood in stools or black stools and change in bowel habits : Negative for dysuria, frequency and incontinence MUSCULOSKELETAL: Negative for joint pain or swelling, back pain, and muscle pain. SKIN: Negative for lesions, rash, and itching. HEMATOLOGY/LYMPHOLOGY Negative for prolonged bleeding, bruising easily, and swollen nodes. NEURO: Negative for numbness or tingling of hands/feet. No weakness. PHYSICAL EXAMINATION: LMP 08/25/2023 (Exact Date) There were no vitals taken for this visit. Last 3 Encounter Wt Readings: Date: Wt: 10/06/2023 83 kg (183 lb) 02/03/2023 89 kg (196 lb 3.2 oz) 10/28/2022 94.3 kg (208 lb) General appearance:ECOG PERFORMANCE STATUS: 0- Fully active, able to carry on all pre-disease performance w/o restriction. Patient in NAD. Skin: Skin color, texture, turgor normal. No rashes or lesions. Eyes: Anicteric sclera. Pupils are equally round and reactive to light. Extraocular movements are intact. Breast: No palpable breast masses. No nipple change or discharge. Lymph Nodes: No cervical, supraclavicular, axillary or inguinal adenopathy. Oropharynx: Lips, mucosa, and tongue normal. Back: No pain to percussion. Negative SLR test Lungs clear to auscultation, No wheezing or rhonchi Heart: RRR without murmur, gallop, or rubs. Abdomen soft, non-tender. No masses, organomegaly Extremities: No deformities. No edema Neuro: Gait and speech normal. Reflexes normal and symmetric. Muscular strength intact. Sensation grossly intact. Rectal: Deferred : Deferred LABS: Glucose (mg/dL) Date Value 12/30/2023 88 12/18/2016 90 Potassium (mmol/L) Date Value 12/30/2023 4.2 12/18/2016 4.4 Sodium (mmol/L) Date Value 12/30/2023 138 12/18/2016 138 Chloride (mmol/L) Date Value 12/30/2023 106 12/18/2016 104 CO2 (mmol/L) Date Value 12/30/2023 25 12/18/2016 20 Creatinine (mg/dL) Date Value 12/30/2023 0.79 12/18/2016 0.51 BUN (mg/dL) Date Value 12/30/2023 16 12/18/2016 5 Anion Gap (mmol/L) Date Value 12/30/2023 7 12/18/2016 14 Calcium (mg/dL) Date Value 12/18/2016 8.8 Calcium, Total (mg/dL) Date Value 12/30/2023 9.0 Protein, Total (g/dL) Date Value 12/30/2023 6.8 11/20/2016 7.0 Albumin (g/dL) Date Value 12/30/2023 4.3 11/20/2016 4.1 Bilirubin, Total (mg/dL) Date Value 12/30/2023 0.5 11/20/2016 0.3 Alkaline Phosphatase (U/L) Date Value 12/30/2023 78 11/20/2016 100 AST (U/L) Date Value 12/30/2023 21 11/20/2016 26 ALT (U/L) Date Value 12/30/2023 18 11/20/2016 20 WBC Date Value Ref Range Status 12/30/2023 5.20 3.70 - 11.00 k/uL Final RBC Date Value Ref Range Status 12/30/2023 4.67 3.90 - 5.20 m/uL Final Hemoglobin Date Value Ref Range Status 12/30/2023 14.5 11.5 - 15.5 g/dL Final Hematocrit Date Value Ref Range Status 12/30/2023 40.6 36.0 - 46.0 % Final MCV Date Value Ref Range Status 12/30/2023 86.9 80.0 - 100.0 fL Final MCH Date Value Ref Range Status 12/30/2023 31.0 26.0 - 34.0 pg Final MCHC Date Value Ref Range Status 12/30/2023 35.7 30.5 - 36.0 g/dL Final RDW-CV Date Value Ref Range Status 12/30/2023 11.9 11.5 - 15.0 % Final Platelet Count Date Value Ref Range Status 12/30/2023 250 150 - 400 k/uL Final MPV Date Value Ref Range Status 12/30/2023 9.0 9.0 - 12.7 fL Final Abs Neut Date Value Ref Range Status 12/30/2023 2.65 1.45 - 7.50 k/uL Final Lymphocytes % Date Value Ref Range Status 12/30/2023 41.0 % Final Abs Lymph Date Value Ref Range Status 12/30/2023 2.13 1.00 - 4.00 k/uL Final Monocytes % Date Value Ref Range Status 12/30/2023 5.4 % Final Abs [place] Date Value Ref Range Status 12/30/2023 0.28 <0.87 k/uL Final Abs Eosin Date Value Ref Range Status 12/30/2023 0.10 <0.46 k/uL Final Basophils % Date Value Ref Range Status 12/30/2023 0.6 % Final Abs Baso Date Value Ref Range Status 12/30/2023 0.03 <0.11 k/uL Final PATH: IMAGING: ASSESSMENT AND PLAN: Allan Burr is a 38 year old year old female referred to us for elevated iron levels. 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 PLAN: - Recent blood work showed ferritin of 438 and iron saturation of 81% - Will do therapeutic phlebotomy 500 cc every 2 weeks for 4 times - Check CBC ferritin iron studies with every phlebotomy - All her questions answered in detail - Follow-up in [address] Nicole Marquis [id number] [place] [phone] thank you for allowing me to participate in Allan Burr care, if there are any questions or concerns please do not hesitate to contact me at the number below. I spent a total of 30 minutes on the date of the service which included preparing to see the patient, [id number] patient care, completing clinical documentation, obtaining and/or reviewing separately obtained history, performing a medically appropriate examination, counseling and educating the patient/family/caregiver, ordering medications, tests, or procedures, communicating with other HCPs (not separately reported), independently interpreting results (not separately reported), communicating results to the patient/family/caregiver, and care coordination (not separately reported). Titus Taylor MD. Hematology/Medical Oncology [facility] [place] [id number] [phone] CC: documented in this encounter [facility] 12-29-2023 Instructions Titus Taylor MD - 12/29/2023 4:10 PM EDT Ordered labs Do not take any iron supplements F/u in 3 months. documented in this encounter [facility] 12-29-2023 History of Presen t illness Narrative PATIENT NAME: Allan Burr [facility] NO.: [id number] ATTENDING PHYSICIAN: Titus Taylor MD DATE OF SERVICE: December 29, [address] Nicole Marquis [address] [facility] [id number] thank you for referring Allan Burr for an opinion regarding elevated iron levels. CHIEF COMPLAINT: Elevated iron levels HPI: Allan Burr is a 38 year old year old female referred to us for elevated iron levels. 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 Current Outpatient Medications Medication Sig MULTIVITAMIN ORAL Take by mouth. Lactobacillus acidophilus (PROBIOTIC ORAL) Take by mouth. multivit-min/iron/folic/[id number] (HAIR, SKIN AND NAILS ADVANCED ORAL) Take by mouth. calcium polycarbophil (FIBERCON ORAL) Take by mouth. tirzepatide, weight loss (ZEPBOUND) 7.5 mg/0.5 mL pen injector Inject 7.5 mg subcutaneously one time a week. omeprazole (PRILOSEC) 20 mg capsule TAKE 1 CAPSULE ONCE DAILY Phentermine HCl 37.5 mg tablet Take 1 tablet by mouth once daily for 90 days. ondansetron (ZOFRAN) 4 mg tablet Take 1 tablet by mouth every 6 hours as needed. L-NORGEST/E.ESTRADIOL-E.ESTRAD (AMETHIA ORAL) Take 1 tablet by mouth once daily. semaglutide, weight loss, (WEGOVY) 1.7 mg/0.75 mL pen injector Inject 0.75 mL subcutaneously one time a week. semaglutide, weight loss, (WEGOVY) 2.4 mg/0.75 mL pen injector Inject 0.75 mL subcutaneously one time a week. Patient should start on September 07, 2023. No current facility-administered medications for this visit. ALLERGIES No Known Allergies PAST MEDICAL HISTORY Diagnosis Date PCOS (polycystic ovarian syndrome) PAST SURGICAL HISTORY Procedure Laterality Date LAPS SURG CHOLECYSTECTOMY W/CHOLANGIOGRAPHY 2014 FAMILY HISTORY Problem Relation Age of Onset Osteoporosis Mother Heart disease Father Hypertension Father Diabetes Daughter type 1 Social History Tobacco Use Smoking status: Former Current packs/day: 0.00 Average packs/day: 2.0 packs/day for 14.0 years (28.0 ttl pk-yrs) Types: Cigarettes Start date: 04/12/2000 Quit date: 04/12/2014 Years since quittin.7 Smokeless tobacco: Never Substance Use Topics Alcohol use: No Drug use: No REVIEW OF SYSTEMS GENERAL: No weight loss, malaise or fevers. No night sweats. HEENT: Negative for headaches, No changes in hearing or vision, no nose bleeds or other nasal problems. RESPIRATORY: Negative for cough, wheezing and shortness of breath CARDIOVASCULAR: Negative for chest pain, leg swelling and palpitations GI: Negative for abdominal discomfort, blood in stools or black stools and change in bowel habits : Negative for dysuria, frequency and incontinence MUSCULOSKELETAL: Negative for joint pain or swelling, back pain, and muscle pain. SKIN: Negative for lesions, rash, and itching. HEMATOLOGY/LYMPHOLOGY Negative for prolonged bleeding, bruising easily, and swollen nodes. NEURO: Negative for numbness or tingling of hands/feet. No weakness. PHYSICAL EXAMINATION: BP 114/80 Pulse 92 Temp 36.4 C (97.5 F) (Temporal) Resp 18 Wt 82.2 kg (181 lb 3.5 oz) LMP 08/25/2023 (Exact Date) SpO2 100% BMI 28.28 kg/m There were no vitals taken for this visit. Last 3 Encounter Wt Readings: Date: Wt: 10/06/2023 83 kg (183 lb) 02/03/2023 89 kg (196 lb 3.2 oz) 10/28/2022 94.3 kg (208 lb) General appearance:ECOG PERFORMANCE STATUS: 0- Fully active, able to carry on all pre-disease performance w/o restriction. Patient in NAD. Skin: Skin color, texture, turgor normal. No rashes or lesions. Eyes: Anicteric sclera. Pupils are equally round and reactive to light. Extraocular movements are intact. Breast: No palpable breast masses. No nipple change or discharge. Lymph Nodes: No cervical, supraclavicular, axillary or inguinal adenopathy. Oropharynx: Lips, mucosa, and tongue normal. Back: No pain to percussion. Negative SLR test Lungs clear to auscultation, No wheezing or rhonchi Heart: RRR without murmur, gallop, or rubs. Abdomen soft, non-tender. No masses, organomegaly Extremities: No deformities. No edema Neuro: Gait and speech normal. Reflexes normal and symmetric. Muscular strength intact. Sensation grossly intact. Rectal: Deferred : Deferred LABS: Glucose (mg/dL) Date Value 12/06/2023 80 12/18/2016 90 Potassium (mmol/L) Date Value 12/06/2023 4.7 12/18/2016 4.4 Sodium (mmol/L) Date Value 12/06/2023 141 12/18/2016 138 Chloride (mmol/L) Date Value 12/06/2023 107 12/18/2016 104 CO2 (mmol/L) Date Value 12/06/2023 26 12/18/2016 20 Creatinine (mg/dL) Date Value 12/06/2023 0.78 12/18/2016 0.51 BUN (mg/dL) Date Value 12/06/2023 17 12/18/2016 5 Anion Gap (mmol/L) Date Value 12/06/2023 8 12/18/2016 14 Calcium (mg/dL) Date Value 12/18/2016 8.8 Calcium, Total (mg/dL) Date Value 12/06/2023 8.9 Protein, Total (g/dL) Date Value 12/06/2023 6.5 11/20/2016 7.0 Albumin (g/dL) Date Value 12/06/2023 4.2 11/20/2016 4.1 Bilirubin, Total (mg/dL) Date Value 12/06/2023 0.4 11/20/2016 0.3 Alkaline Phosphatase (U/L) Date Value 12/06/2023 81 11/20/2016 100 AST (U/L) Date Value 12/06/2023 18 11/20/2016 26 ALT (U/L) Date Value 12/06/2023 17 11/20/2016 20 WBC Date Value Ref Range Status 12/06/2023 6.90 3.70 - 11.00 k/uL Final RBC Date Value Ref Range Status 12/06/2023 4.68 3.90 - 5.20 m/uL Final Hemoglobin Date Value Ref Range Status 12/06/2023 14.3 11.5 - 15.5 g/dL Final Hematocrit Date Value Ref Range Status 12/06/2023 42.6 36.0 - 46.0 % Final MCV Date Value Ref Range Status 12/06/2023 91.0 80.0 - 100.0 fL Final MCH Date Value Ref Range Status 12/06/2023 30.6 26.0 - 34.0 pg Final MCHC Date Value Ref Range Status 12/06/2023 33.6 30.5 - 36.0 g/dL Final RDW-CV Date Value Ref Range Status 12/06/2023 12.4 11.5 - 15.0 % Final Platelet Count Date Value Ref Range Status 12/06/2023 296 150 - 400 k/uL Final MPV Date Value Ref Range Status 12/06/2023 9.4 9.0 - 12.7 fL Final Abs Neut Date Value Ref Range Status 12/06/2023 3.62 1.45 - 7.50 k/uL Final Lymphocytes % Date Value Ref Range Status 12/06/2023 38.0 % Final Abs Lymph Date Value Ref Range Status 12/06/2023 2.62 1.00 - 4.00 k/uL Final Monocytes % Date Value Ref Range Status 12/06/2023 5.8 % Final Abs [place] Date Value Ref Range Status 12/06/2023 0.40 <0.87 k/uL Final Abs Eosin Date Value Ref Range Status 12/06/2023 0.20 <0.46 k/uL Final Basophils % Date Value Ref Range Status 12/06/2023 0.6 % Final Abs Baso Date Value Ref Range Status 12/06/2023 0.04 <0.11 k/uL Final PATH: IMAGING: ASSESSMENT AND PLAN: Allan Burr is a 38 year old year old female referred to us for elevated iron levels. PLAN: -Explained to her in detail various etiologies for elevated iron levels including the hemochromatosis. -No family history of hemochromatosis. -Check CBC CMP ferritin iron studies hemochromatosis gene mutation test -Will consider doing therapeutic phlebotomy depending on the hemochromatosis gene mutation testing results -Monitor the iron levels for now -She is not taking any iron supplements at this time. -Follow-up in [address] Nicole Marquis [phone] [facility] [id number] thank you for allowing me to participate in Allan Burr care, if there are any questions or concerns please do not hesitate to contact me at the number below. I spent a total of 45 minutes on the date of the service which included preparing to see the patient, [id number] patient care, completing clinical documentation, obtaining and/or reviewing separately obtained history, performing a medically appropriate examination, counseling and educating the patient/family/caregiver, ordering medications, tests, or procedures, communicating with other HCPs (not separately reported), independently interpreting results (not separately reported), communicating results to the patient/family/caregiver, and care coordination (not separately reported). Titus Taylor MD. Hematology/Medical Oncology [facility] [phone] CC: documented in this encounter [facility] 12-07-2023 Telephone encounter Note Patient completed labs. [facility] 12-07-2023 Miscellaneous Notes Patient completed labs. documented in this encounter [facility] 12-03-2023 Note Addended by: VALERIE HARVEY on: 12/03/2023 04:37 PM Modules accepted: Orders [facility] 12-03-2023 Miscellaneous Notes Addended by: VALERIE HARVEY on: 12/03/2023 04:37 PM Modules accepted: Orders documented in this encounter [facility] 10-20-2023 Telephone encounter Note Phentermine Rx sent. Nicole Marquis APRN.CNP [facility] 10-20-2023 Miscellaneous Notes Phentermine Rx sent. Nicole Marquis APRN.DESIGN TRANSFERRER documented in this encounter [facility] 10-06-2023 Instructions Nicole Marquis APRN.CNP - 10/06/2023 1:48 PM EDT Images from the original note were not included. Follow up in 3 months. If needed I have shared medical appointments (SMA's) Wednesday afternoons at 2:30 (virtual) and will have an in-person SMA in [place] on Mondays at 3 pm starting in August. Call [phone] to schedule. [place] office or [place] office [phone] Navigating medication shortages: - If the pharmacy tells you they are out of your medication, ask to speak to the pharmacist. Ask the pharmacist to check their database and see if their distributor has it in stock. If the distributor has it in stock, ask them to order it AND ask the projected delivery date to the pharmacy. - If your medication is on back order ask if there is an estimated date it may be available or if any other nearby pharmacies in their system have it. - If your requested dose is not available ask if a higher or lower dose of the medication is available. - if needed you can take your medication every other week to ration it until it is available. If you have a dial pen ask us about counting the clicks to take a lower dose. - you can go up to 2 weeks without the medication before we have to consider reducing the dose or potentially restarting the medication at the lowest dose. - if you are just starting the medication I would recommend waiting a couple weeks to a month to start it so that it will give you cushion for refills. - request your refills early to allow time for them to get the medication in stock. If you have a 30-day prescription, you can get your refill on day 23 -- or 7 days early. - If it is still unavailable call other pharmacies in your area, and they can transfer your prescription electronically. - if needed we can consider bridging you to an alternative medication. Current and Resolved Drug Shortages and Discontinuations Reported to FDA- Check here for updates on supply per medication and dose https://www.accessdata.fda.gov/ scripts/drugshortages/default.c fm Your Weight Can't Wait https://yourweightcantwait.sg/ Recognizing and treating obesity as a disease 60 Minutes AACE Journey For Patients With Obesity [email or web address] [email or web address] YouTube Video Junaid Quevedo, PhD Calories, Carbs, or Quality: What Matters Most for Body Weight? Podcast: The Science Behind Metabolism & Weight Loss with Junaid Quevedo, PhD [email or web address] [id number] EBM The energy balance model of obesity: beyond calories in, calories out How can I fix my acid reflux after gastric sleeve surgery? Written by Cristy Aaron RD, LDN and medically reviewed by Dr. Edison Rodriguez MD If you suffered from acid reflux before gastric sleeve surgery, then you may be unpleasantly surprised that acid reflux is still something you will have to deal with. In this article, we ll talk about why acid reflux still occurs after surgery and what you can do to make it better. We ve even included a 1-Day meal plan to help you get started with managing your acid reflux. What is acid reflux? A normal stomach without acid reflux and a stomach with acid reflux Acid reflux. GERD. Heartburn. You may see these terms used interchangeably, but they have medically different definitions. Acid Reflux: A condition in which stomach acid bubbles up into the esophagus. This occurs from a weak sphincter muscle at the junction of the stomach and esophagus. Called the lower esophageal sphincter (LES), its job is to keep food and acid in the stomach. GERD: Chronic and/or severe acid reflux. It s diagnosed when someone has acid reflux at least twice per week along with confirmation from other exploratory measures. GERD has the potential to cause inflammation Heartburn: A symptom of acid reflux and GERD. It s described as a burning or painful sensation in the chest, esophagus and throat. Causes and risk factors for these conditions include: Weakness in the LES Certain medications like antidepressants and NSAIDs Being overweight or obese* Hiatal hernia Drinking alcohol* Smoking* *Controllable risk factors Risk factors for Acid Reflux GERD and Heartburn There are some acid reflux risk factors that you can t control. However, modifying controllable risk factors (along with our tips below) can help you manage acid reflux. Why is my acid reflux worse after gastric sleeve surgery? While some types of bariatric surgeries are known to improve acid reflux, gastric sleeve may not be one of them. Some research shows that gastric sleeve surgery may increase acid reflux presence. Why? Gastric sleeve procedures can decrease the pressure around the LES, making it weak. Couple that with increased pressure in the stomach when stomach size is reduced during surgery. The possibility of developing acid reflux should be considered before consenting to a gastric sleeve procedure. Gastric sleeve and GERD Management of GERD and acid reflux is a huge focus in the bariatric surgery population. Being overweight or obese may increase your risk of acid reflux, GERD and further complications compared to someone of a healthy weight (3-4). Here are other reasons why acid reflux may be so prevalent in the obese population: Pressure on the stomach due to belly fat Consumption of large meals that lead to stomach distention Diets high in fatty foods (i.e. fast food, fried food) Sedentary lifestyle Presence of hiatal hernia Effects of acid reflux Acid reflux affects quality of life, sleep and may lead to food aversions. It can also cause inflammation in the esophagus. Cell damage in your esophagus can lead to Shore s esophagus, ulcers or cancer. When a patient continues to have acid reflux (or gets it post-surgery), this adds undue stress to an already overwhelming time. GERD and acid reflux can be relieved with weight loss, but if weight loss is gradual or never occurs, patients may continue to deal with symptoms months or years after surgery. Some patients even consider gastric sleeve revision with a Juanis-en-Y gastric bypass. Another option is fundoplication surgery where part of the stomach is wrapped around the LES to strengthen it. Fundoplication surgery to alleviate GERD after gastric sleeve surgery It s important that you and your healthcare team explore all bariatric surgery options and the long-term effects of each. Gastric sleeve and hiatal hernia While it may seem that gastric sleeve surgery isn t a reliable way to reduce acid reflux, one small study found that having a gastric sleeve procedure with hiatal hernia repair might be beneficial for GERD. However, other research indicates that having a hiatal hernia repair with gastric sleeve surgery did not provide significant improvements. What s even more important is what happens to the hiatal hernia and GERD relationship after surgery. A 2020 study found that people who experience GERD after a gastric sleeve and hiatal hernia repair may be at higher risk of getting another hiatal hernia. So, frequent acid reflux symptoms post-surgery should be brought up with your doctor. How to fix acid reflux after gastric sleeve surgery There are 3 main ways to relieve acid reflux: medications, dietary habits and behavioral changes: Medications Dietary habits Behavioral and Lifestyle changes Ways to fix acid reflux after gastric sleeve surgery You may find that one of these methods works great, but you may get more benefit if you include all methods. Medications for acid reflux Antacids neutralize stomach acid. Ask your doctor which antacids are appropriate for you. H2 blockers work to reduce stomach acid before it forms. Proton pump inhibitors also work to reduce stomach acid but are usually stronger and faster than H2 blockers. Dietary habits for acid reflux Reduce or avoid common acid reflux trigger foods. These include alcohol, tomato products, chocolate, coffee, spicy food, carbonated drinks, peppermint, greasy foods and fatty foods. Reduce or avoid personal trigger foods that you ve noticed give you trouble. Avoid drinking liquids with meals or snacks. Eat your meal and then wait at least 30 minutes before consuming liquids. Eat small meals, rather than large meals, to prevent stomach distension Avoid eating late at night, especially if you re about to lie down. Behavioral changes for acid reflux Quit smoking. Wear loose clothing. Avoid lying down right after eating. Keep your head raised at least 6 inches when sleeping or lounging. Continue your weight loss eating and exercise plan. Losing weight can help reduce acid reflux. 1-Day meal plan to reduce acid reflux symptoms Your healthcare team may have specific dietary guidelines for you, so do your best to follow them. Size of meals and drinks: You may need to consume meals 1-2 Tbsp at a time and gradually increase. Texture: Ask your doctor or Registered Dietitian if you need to blend, puree or dice your food. Texture will be dependent on how long ago your gastric sleeve surgery occurred. Portions to continue weight loss: Ask for guidance on the exact right portions for your needs. Sample Meal Plan to Try Breakfast: 1 scrambled egg (75 calories) Romanian muffin (67 calories) Calories per meal: 142 AM Snack & Fluids: *Spread out and sipped between meals 2 cups water (0 calories) 1 cup skim milk or unsweetened soy milk (90 calories) Calories per meal: 90 Lunch: 4 oz canned tuna in water (100 calories) 2 Tbsp fat free villagran (20 calories) 1 slice low fat Trinidadian cheese (50 calories) 1 slice whole grain bread (90 calories) 2 tomato slices (5 calories) Calories per meal: 265 PM Snack & Fluids: *Spread out and sipped between meals 2 cups water (0 calories) 1 cup skim milk or unsweetened soy milk (90 calories) 1 ripe peach, small (51 calories) Calories per meal: 141 Dinner: 3 oz 93% lean turkey (128 calories) 1/2 cup vegetable medley, well cooked (15 calories) 1/2 cup cooked pasta (110 calories) 1 cup watermelon (45 calories) Calories per meal: 298 Nighttime Snack & Fluids: *Spread out and sipped between meals 2 cups water (0 calories) cup nonfat cottage cheese (26 calories) 1/2 banana (53 calories) Calories per meal: 79 Total calories: 1015 While this is only one day s worth of eating, you can easily see the types of foods that are chosen and you can use this as a nice template to make alterations as you need. Use the tables we provided in this article to select safe and healthy foods so you can avoid you acid reflux or heartburn symptoms. In summary Acid reflux, heartburn and GERD can happen to anyone after bariatric surgery. It s uncomfortable, frustrating and can cause issues down the road. Luckily it can be managed pretty well WITHOUT surgery. But if surgery is required, it s been proven to help. Avoid the specific foods we outlined and make a few behavior changes and you ll notice a major improvement in your symptoms! How can I fix my acid reflux after gastric sleeve surgery? (Full meal plan) ([employer]) TIRZEPATIDE (Zepbound) Tirzepatide delays gastric emptying and has the potential to alter absorption of oral medications. This is important in patients taking narrow therapeutic index drugs or drugs that need a minimum blood level for efficacy. If you are taking oral contraceptives switch to a non-oral contraceptive method or add a barrier contraceptive method for 4 weeks after initiation of tirzepatide and for 4 weeks after each dose escalation. The most common side effects of Zepbound include nausea, diarrhea, decreased appetite, vomiting, constipation, indigestion, and stomach (abdominal) pain. Video Instructions for Injecting Zepbound: www.zepbound.[employer].com Link to savings card https://[email or web address].[email or web address].com/ coverage-savings Tirzepatide: Patient drug information What is Zepbound? Zepbound is an injectable prescription medicine that may help adults with obesity, or with excess weight (overweight) who also have weight-related medical problems, lose weight and keep it off. Zepbound should be used with a reduced-calorie diet and increased physical activity. Zepbound works by activating 2 hormone receptors. It reduces appetite, food intake, body fat, and body weight. Zepbound contains tirzepatide and should not be used with other tirzepatide-containing products or any GLP-1 receptor agonist medicines. It is not known if Zepbound is safe and effective when taken with other prescription, vxyo-npv-wojljfx, or herbal weight loss products. It is not known if Zepbound can be used in people who have had pancreatitis. It is not known if Zepbound is safe and effective for use in children under 18 years of age. Zepbound may cause serious side effects, including: Inflammation of the pancreas (pancreatitis). Stop using Zepbound and call your healthcare provider right away if you have severe pain in your stomach area (abdomen) that will not go away, with or without vomiting. You may feel the pain from your abdomen to your back. Low blood sugar (hypoglycemia). Your risk for getting low blood sugar may be higher if you use Mounjaro with another medicine that can cause low blood sugar, such as a sulfonylurea or insulin. Signs and symptoms of low blood sugar may include dizziness or light-headedness, sweating, confusion or drowsiness, headache, blurred vision, slurred speech, shakiness, fast heartbeat, anxiety, irritability, or mood changes, hunger, weakness and feeling jittery. Serious allergic reactions. Stop using Zepbound and get medical help right away if you have any symptoms of a serious allergic reaction, including swelling of your face, lips, tongue or throat, problems breathing or swallowing, severe rash or itching, fainting or feeling dizzy, and very rapid heartbeat. Kidney problems (kidney failure). In people who have kidney problems, diarrhea, nausea, and vomiting may cause a loss of fluids (dehydration), which may cause kidney problems to get worse. It is important for you to drink fluids to help reduce your chance of dehydration. Severe stomach problems. Stomach problems, sometimes severe, have been reported in people who use Zepbound. Tell your healthcare provider if you have stomach problems that are severe or will not go away. Changes in vision. Tell your healthcare provider if you have changes in vision during treatment with Zepbound. Gallbladder problems. Gallbladder problems have happened in some people who use Mounjaro. Tell your healthcare provider right away if you get symptoms of gallbladder problems, which may include pain in your upper stomach (abdomen), fever, yellowing of skin or eyes (jaundice), and chico-colored stools. Common side effects The most common side effects of Zepbound include nausea, diarrhea, vomiting, constipation, stomach (abdominal) pain, indigestion, injection site reactions, feeling tired, allergic reactions, belching, hair loss, and heartburn. These are not all the possible side effects of Zepbound. Talk to your healthcare provider about any side effect that bothers you or doesn t go away. Tell your healthcare provider if you have any side effects. You can report side effects at 2-766-INV-4064 or www.fda.gov/medwatch. Before using Zepbound Your healthcare provider should show you how to use Zepbound before you use it for the first time. Tell your healthcare provider if you are taking medicines to treat diabetes including insulin or sulfonylureas which could increase your risk of low blood sugar. Talk to your healthcare provider about low blood sugar levels and how to manage them. If you take control pills by mouth, talk to your healthcare provider before you use Zepbound. control pills may not work as well while using Zepbound. Your healthcare provider may recommend another type of control for 4 weeks after you start Zepbound and for 4 weeks after each increase in your dose of Zepbound. Review these questions with your healthcare provider: ? Do you have other medical conditions, including problems with your pancreas or kidneys, or severe problems with your stomach, such as slowed emptying of your stomach (gastroparesis) or problems digesting food? ? Do you take diabetes medicines, such as insulin or sulfonylureas? ? Do you have a history of diabetic retinopathy? ? Do you take any other prescription medicines or yoyv-ohu-alefess drugs, vitamins, or herbal supplements? ? Are you , plan to become , , or plan to breastfeed? Zepbound may harm your unborn baby. Tell your healthcare provider if you become while using Zepbound. It is not known if Zepbound passes into your breast milk. You should talk with your healthcare provider about the best way to feed your baby while using Zepbound. Exposure Registry: There will be a exposure registry for women who have taken Zepbound during . The purpose of this registry is to collect information about the health of you and your baby. Talk to your healthcare provider about how you can take part in this registry, or you may contact [employer] at 1-215-MwvicGl ( ). https://www.zepbReal Food Blends.Total Eclipse/ ?gclid=TDRyANfxJxEV5r5Kt8NacuAO 1AitBh0kHQEpEAAYASAAEgLpaPD_BwE Warning This drug has been shown to cause thyroid cancer in some animals. It is not known if this happens in humans. If thyroid cancer happens, it may be deadly if not found and treated early. Call your doctor right away if you have a neck mass, trouble breathing, trouble swallowing, or have hoarseness that will not go away. Do not use this drug if you have a health problem called Multiple Endocrine Neoplasia syndrome type 2 (MEN 2), or if you or a family member have had medullary thyroid cancer. Have your blood work checked and thyroid ultrasounds as you have been told by your doctor. What is this drug used for? Zepbound is an injectable prescription medicine that may help adults with obesity, or with excess weight (overweight) who also have weight-related medical problems, lose weight and keep it off. Zepbound should be used with a reduced-calorie diet and increased physical activity. What do I need to tell my doctor BEFORE I take this drug? If you are allergic to this drug; any part of this drug; or any other drugs, foods, or substances. Tell your doctor about the allergy and what signs you had. If you have type 1 diabetes. Do not use this drug to treat type 1 diabetes. If you have ever had pancreatitis. If you have stomach or bowel problems. This is not a list of all [...] or do while I take this drug? Tell all of your health care providers that you take this drug. This includes your doctors, nurses, pharmacists, and dentists. Wear disease medical alert ID (identification). Follow the diet and workout plan that your doctor told you about. Check your blood sugar as you have been told by your doctor. Do not drive if your blood sugar has been low. There is a greater chance of you having a crash. control pills may not work as well to prevent . If you take control pills, you may need to switch to another type of hormone-based control like a vaginal ring if your doctor tells you to. If another type of hormone-based control is not an option, use some other kind of control also, like a condom. Do this for 4 weeks after starting this drug and for 4 weeks each time the dose is raised. This drug may prevent other drugs taken by mouth from getting into the body. If you take other drugs by mouth, you may need to take them at some other time than this drug. Talk with your doctor. It may be harder to control blood sugar during times of stress such as fever, infection, injury, or surgery. A change in physical activity, exercise, or diet may also affect blood sugar. Talk with your doctor before you drink alcohol. Do not share with another person even if the needle has been changed. Sharing your tray or pen may pass infections from one person to another. This includes infections you may not know you have. If you cannot drink liquids by mouth or if you have upset stomach, throwing up, or diarrhea that does not go away; you need to avoid getting dehydrated. Contact your doctor to find out what to do. Dehydration may lead to new or worse kidney problems. A severe and sometimes deadly pancreas problem (pancreatitis) has happened with other drugs like this one. Tell your doctor if you are , plan on getting , or are breast-feeding. You will need to talk about the benefits and risks to you and the baby. What are some side effects that I [...] the mouth, face, lips, tongue, or throat. Signs of kidney problems like unable to pass urine, change in how much urine is passed, blood in the urine, or a big weight gain. Signs of gallbladder problems like pain in the upper right belly area, right shoulder area, or between the shoulder blades; yellow skin or eyes; fever with chills; bloating; or very upset stomach or throwing up. Signs of a pancreas problem (pancreatitis) like very bad stomach pain, very bad back pain, or very bad upset stomach or throwing up. Dizziness or passing out. A fast heartbeat. Change in eyesight. Low blood sugar can happen. The chance [...] bother you or do not go away: Constipation, diarrhea, stomach pain, upset stomach, throwing up, or feeling less hungry. Heartburn. These are not all of the side [...] given to you. Follow all instructions closely. It is given as a shot into the fatty part of the skin on the top of the thigh, belly area, or upper arm. If you will be giving yourself the shot, your doctor or nurse will teach you how to give the shot. Keep taking this drug as you have been told by your doctor or other health care provider, even if you feel well. Take the same day each week. Move site where you give the shot each time. Take with or without food. Wash your hands before and after use. Do not use if the solution is leaking or has particles. This drug is colorless to a faint yellow. Do not use if the solution changes color. If you are also using insulin, you may inject this drug and the insulin in the same area of the body but not right next to each other. Do not mix this drug in the same syringe with insulin. Do not move this drug from the pen to a syringe. Each pen is for one use only. Throw away any part of the used pen after the dose is given. Throw away needles in a needle/sharp disposal box. Do not reuse needles or other items. When the box is full, follow all local rules for getting rid of it. Talk with a doctor or pharmacist if you have any questions. What do I do if I miss a dose? If it is within 4 days after the missed dose, take the missed dose and go back to your normal day. If it has been more than 4 days since the missed dose, skip the missed dose and go back to your normal day. Do not take 2 doses at the same time or extra doses. How do I store and/or throw out this drug? Store in a refrigerator. Do not freeze. Do not use if it has been frozen. If needed, each pen may be stored at room temperature for up to 21 days. If you store at room temperature, throw away any part not used after 21 days. Protect from heat. Store in the original container to protect from light. Keep all drugs in a safe place. Keep all drugs out of the reach of children and pets. Throw away unused or drugs. Do not flush down a toilet or pour down a drain unless you are told to do so. Check with your pharmacist if you have questions about the best way to throw out drugs. There may be drug take-back programs in your area. General drug facts If your symptoms or health problems do not get better or if they become worse, call your doctor. Do not share your drugs with others and do not take anyone else's drugs. Some drugs may have another patient information leaflet. If you have any questions about this drug, please talk with your doctor, nurse, pharmacist, or other health care provider. If you think there has been an overdose, call your poison control center or get medical care right away. Be ready to tell or show what was taken, how much, and when it happened. Last Reviewed [id number] Consumer Information Use and Disclaimer This generalized information is a limited summary of diagnosis, treatment, and/or medication information. It is not meant to be comprehensive and should be used as a tool to help the user understand and/or assess potential diagnostic and treatment options. It does NOT include all information about conditions, treatments, medications, side effects, or risks that may apply to a specific patient. It is not intended to be medical advice or a substitute for the medical advice, diagnosis, or treatment of a health care provider based on the health care provider's examination and assessment of a patient's specific and unique circumstances. Patients must speak with a health care provider for complete information about their health, medical questions, and treatment options, including any risks or benefits regarding use of medications. This information does not endorse any treatments or medications as safe, effective, or approved for treating a specific patient. [employer]. and its affiliates disclaim any warranty or liability relating to this information or the use thereof. The use of this information is governed by the Terms of Use, available at https://www.[employer].com/e n/know/yicgqcgi-oxmjnbnnrmpod-l erms. documented in this encounter [facility] 10-06-2023 History of Presen t illness Narrative Images from the original note were not included. BMI Obesity Medicine PostOp Follow Up Visit [facility] Visit October 06, 2023 I have communicated my name and active licensure. The patient's identity and physical location were verified at the time of this visit. 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 C/o nausea and fatigue. Had a kidney stone so stopped taking citrate, was concerned it would increase risk for recurrence. Is interested in B12 injections. GERD is tolerable now with prilosec. Weight is decreased since last visit. AOM Hx: Was going to a [employer] spa and getting semaglutide injections, but was costly. Metformin - GI upset Contrave SE- bad dreams, felt like she was in a haze Topiramate took when she was younger for migraines Had kidney stone while . Semaglutide (Wegovy) Side effects: nausea, fatigue Benefit: Reduction of appetite and Increased satiety Started: 2022 Starting weight: 208 lbs Diet: Increasing water intake Web Applications Architect consult still pending DAILY SUPPLEMENTS: Yes Calcium: No Multivitamin & Minerals: 1 per day Iron Supplement: No Vitamin B12: included in multivitamin Vitamin D3: included in multi-vitamin Other: N/A Exercise: stable Sleep: mild PILAR, not on CPAP Weight Graph: Current Outpatient Medications Medication Sig semaglutide, weight loss, (WEGOVY) 1.7 mg/0.75 mL pen injector Inject 0.75 mL subcutaneously one time a week. semaglutide, weight loss, (WEGOVY) 2.4 mg/0.75 mL pen injector Inject 0.75 mL subcutaneously one time a week. Patient should start on September 07, 2023. omeprazole (PRILOSEC) 20 mg capsule TAKE 1 CAPSULE ONCE DAILY ondansetron (ZOFRAN) 4 mg tablet Take 1 tablet by mouth every 6 hours as needed. L-NORGEST/E.ESTRADIOL-E.ESTRAD (AMETHIA ORAL) Take 1 tablet by [...] Types: Cigarettes Quit date: 04/12/2014 Years since quittin.4 Smokeless tobacco: Never Substance Use Topics Alcohol [...] No menstrual irregularities(women) PHYSICAL EXAM: Vital Signs: BP 122/83 (BP Site: Right Arm) Pulse 93 Ht 171.5 cm (5' 7.5 ) Wt 83 kg (183 lb) LMP 12/17/2016 (Exact Date) SpO2 99% BMI 28.24 kg/m Body mass index is 28.24 kg/m . Physical exam: VIDEO EXAM: (if [...] 12/18/2016 2.12 1.00 - 4.00 k/uL Final [place]% 12/18/2016 6.4 % Final Abs [place] 12/18/2016 0.64 0.00 - 0.86 k/uL Final [...] 2.6 (L) 2.7 - 4.8 mg/dL Final FIB-4 Calculation: 0.51 at 12/18/2022 9:02 AM Calculated from: SGOT/AST: 15 U/L at 12/18/2022 9:02 AM SGPT/ALT: 14 U/L at 12/18/2022 9:02 AM Platelets: 298 k/uL at 12/18/2022 9:02 AM Age: 37 years ACTIVE PROBLEM LIST Pcos (Polycystic Ovarian Syndrome) S/P Laparoscopic Sleeve Gastrectomy Gestational Diabetes Mellitus in , Unspecified Control History of Oligohydramnios Personal History of Nicotine Dependence Streptococcus B [place] Complicating Childbirth Chronic Fatigue Anxiety Acquired Hypothyroidism Chronic Back Pain Chronic Joint Pain Insulin Resistance Syndrome Intractable Chronic Migraine Without Aura and Without Status Migrainosus Kidney Stones Dorsalgia, Unspecified Mild Obstructive Sleep Apnea Assessment Allan Burr is a 38 year old female s/p Sleeve gastrectomy on12/17/2016 who responded well to surgery, losing approximately 25% of her total body weight. Post-OP course complicated by weight recurrence after 2 pregnancies.. Nearly all of her weight-related medical comorbidities have resolved or improved after surgery. Body mass index is 28.24 kg/m .) She has been complaint with her vitamin and mineral supplementation. Diet and exercise habits as above. Asymptomatic, taking required supplements as recommended, no signs or symptoms of vitamin deficiency. She continues to be motivated to lose weight. Agreeable to continue phentermine and Wegovy. Bridge to Zepbound if insurance allows, see if it improves side effects of fatigue and nausea. Plan: EDUCATION: Encouraged to continue with healthy lifestyle changes and incorporate cardiovascular and resistance training, Discussed weight loss expectations after bariatric and metabolic surgery, Advised PT to avoid NSAIDs, smoking tobacco given increased risk of marginal ulcers, Compliant w/ bariatric vitamins. 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: Today: See Epic DISPOSITION: Return 3 month to Post-op follow up/ individual office visit - consider addition of Topiramate for headaches or sleep study to r/o PILAR - continue omeprazole for GERD, reminded to avoid NSAIDS - nystatin for fungal rash, consider referral to plastics - continue Wegovy 2.4 mg, try to bridge to Zepbound 7.5 mg - zofran prn for nausea - continue 1/2 tab of phentermine as needed - annual bariatric labs ordered - discussed f/u w/ BMI RDN Nicole Marquis APRN.[facility] Obesity Medicine I spent 25 minutes in the visit, with more than 50% of the total ojwg-yy-gmry time of the visit in counseling / coordination of care. All documentation from previous visit was copied and pasted, documentation has been reviewed and edited as necessary for today's visit. documented in this encounter [facility] 05-19-2023 History of Presen t illness Narrative Allan Burr is a 37 y.o. female presents with chief complaint of Sinusitis HPI: Sinus Pain Patient complains of congestion, cough, frequent clearing of the throat, mouth breathing, nasal congestion, sinus pressure, sneezing, and snoring. Onset of symptoms was 2 weeks ago. Symptoms have been gradually worsening since that time. She is drinking plenty of fluids. Past history is significant for occasional episodes of bronchitis. Patient is former smoker, quit 11 years ago. Patient has been taking Flonase, mucin ex, sudafed, benadryl OTC, and uses humidifier daily. Did an at home covid test Wednesday came back Negative. Sinusitis Associated symptoms include congestion, coughing and sinus pressure. SUBJECTIVE: MEDICATIONS: Current Outpatient Medications Medication Instructions Ashlyna 0.15-0.03 &0.01 MG tablet tablet 1 tablet, Oral, Daily famotidine (PEPCID) 20 mg, Oral, Daily RT Multiple Vitamin (MULTI VITAMIN PO) Oral phentermine (ADIPEX-P) 37.5 mg, Oral, Daily RT polycarbophil (Fibercon) 625 MG tablet Oral, Daily Probiotic Product (PRO-BIOTIC BLEND PO) Oral Wegovy 1.7 MG/0.75ML solution auto-injector REVIEW OF SYMPTOMS: Review of Systems Constitutional: Negative. HENT: Positive for congestion, postnasal drip and sinus pressure. Eyes: Negative. Respiratory: Positive for cough. Cardiovascular: Negative. Gastrointestinal: Negative. Genitourinary: Negative. Musculoskeletal: Negative. Skin: Negative. Neurological: Negative. OBJECTIVE: Visit Vitals BP 120/86 (BP Location: Left arm, Patient Position: Sitting, BP Cuff Size: Adult) Pulse 85 Temp 98.6 F (Tympanic) Ht 5' 7 Wt 187 lb 12.8 oz SpO2 99% BMI 29.41 kg/m Smoking Status Former BSA 2.01 m Physical Exam Vitals reviewed. HENT: Head: Normocephalic and atraumatic. Right Ear: Tympanic membrane normal. Left Ear: Tympanic membrane normal. Nose: Mucosal edema, congestion and rhinorrhea present. Rhinorrhea is clear. Mouth/Throat: Lips: [place]. Mouth: Mucous membranes are moist. Comments: PND, no erythema Eyes: Pupils: Pupils are equal, round, and reactive to light. Cardiovascular: Rate and Rhythm: Normal rate and regular rhythm. Pulses: Normal pulses. Heart sounds: Normal heart sounds. Pulmonary: Effort: Pulmonary effort is normal. Breath sounds: Normal breath sounds. Musculoskeletal: Cervical back: Normal range of motion and neck supple. Right lower leg: No edema. Left lower leg: No edema. Skin: General: Skin is warm and dry. Capillary Refill: Capillary refill takes less than 2 seconds. Findings: No rash. Neurological: General: No focal deficit present. Mental Status: She is alert and oriented to person, place, and time. ASSESSMENT AND PLAN: Assessment/Plan Diagnoses and all orders for this visit: Nasal congestion - predniSONE (Deltasone) 10 MG tablet; Take 1 tablet (10 mg) by mouth in the morning and 1 tablet (10 mg) before bedtime. Do all this for 3 days. - Azelastine HCl 137 MCG/SPRAY solution; Administer 1 spray into affected nostril(s) in the morning. -Switch to azelastine. Will give her a couple days of steroids to help dry her out. Continue oral antihistamine. Instructed to notify office if symptoms persist or worsen. documented in this encounter [facility] 02-03-2023 Instructions Nicole Marquis APRN.[facility] - 02/03/2023 11:33 AM EDT Images from the original note were not included. consult to BMI nutrition: I recommend Valerie Hui RD or Leigha Lake RD. Call [phone] to schedule. $99 for 1 year supply - Bariatric Pal Avoid all NSAIDS https://store.JibJab/ products/bariatricpal-multivita bdt-swh-qnj-hbcnczugq-euakoi-mk bscription?ydomxhn=[id number] 77&selling_plan=[id number] MANAGING SIDE EFFECTS WITH GLP1's The side [...] digestive enzyme that helps break down those ghqd-ov-ruggvt sugars found in carbohydrates, vegetable, and beans. Enzyme lactase (Lactaid, Lactrase, and Dairy Ease) helps people with lactose intolerance digest dairy. Probiotics contain good bacteria that promote healthy digestion. These good bacteria may replace some of the bad bacteria causing that smelly gas byproduct. https://www.Cleo.[employer]/heal th/wil-xn-duc-oaj-xi-kajkhl-bur ps#otc-treatments Nutrition tips: 1. Do not skip [...] Maintain post-bariatric vitamin and mineral intake. https://www.ncbi.nlm.nih.gov/pm c/articles/XVJ7903870/ Your Weight Can't Wait https://yourweightcantwait.sg/ Recognizing and treating obesity as a disease 60 Minutes documented in this encounter [facility] 02-03-2023 History of Presen t illness Narrative BMI Obesity Medicine PostOp Follow Up Visit [facility] Visit February 03, 2023 I have communicated my name and active licensure. The patient's identity and physical location were verified at the time of this visit. 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 Has been off of work more recently. Not drinking as much water. Has not seen winch operator yet. Has been having morning headaches. Tries [...] stone while . Diet: Increasing water intake Web Applications Architect consult still pending Exercise:increased Sleep: mild PILAR, [...] 12/18/2016 2.12 1.00 - 4.00 k/uL Final [place]% 12/18/2016 6.4 % Final Abs [place] 12/18/2016 0.64 0.00 - 0.86 k/uL Final [...] 2.7 - 4.8 mg/dL Final Assessment Allan Burr is a 37 year old female s/p [...] ulcers, Compliant w/ bariatric vitamins. 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 All documentation from previous visit was copied and pasted, documentation has been reviewed and edited as necessary for today's visit. documented in this encounter [facility] 10-28-2022 Instructions Nicole Marquis APRN.CNP - 10/28/2022 8:14 AM EDT - start metformin 500 mg tab at dinner only - continue phentermine - add calcium - Fasting labs - please get drawn at you convenience (fast for 8-10 hours, drink 1-2 glasses of water before). - I have placed a consult to BMI nutrition: I recommend Valerie Hui RD or Leigha Lake RD. Call [phone] to schedule. Bariatric Multivitamins: $99 for 1 year supply - Bariatric Pal https://store.bariatricpal.[employer]/ products/bariatricpal-multivita ytn-xjt-dlf-kyqbhpfpm-ixdulv-hr bscription?nyqnmkc=[id number] 77&selling_plan=[id number] Bariatric Choice ONCE DAILY Bariatric Multivitamin Capsule with 45 mg of Iron (90 Count), Bariatric Vitamin Supplement for Post Bariatric Surgery Gastric Bypass Patients (best holden) on CityGro Bariatric Choice on Dreamscape Blue https://Folica/ Celebrate https://celebratevitamins.com/ Bariatric Fusion Bariatric Fusion on Intradiem www.bariatricfusion.[employer] Pair with calcium citrate: Barilife Calcium after bariatric surgery: How much, what kind, where to get it (barilife.com) Bariatric Fusion Bariatric Calcium Chews on Intradiem Bariatric advantage calcium citrate chews - 3 [...] you Rx benefits card is uploaded to gifted2you, most of them are separate from your insurance card. This can expedite our prior authorization process. Here is a Website to see if Wegovy might be covered: https://www.[employer]/wegovy /cost-navigator.html Please check with your insurance company to see if any anti-obesity medications are covered under your specific policy. If you insurance plan EXCLUDES anti-obesity medication coverage: FIRST: Discuss this with the account manager employee benefits at your job's human resources department (or wherever the policy is through) and ask them to request an exception through their plan's policy or opt in for obesity medication coverage in their company-wide policy. Contact information for the [place] [employer] Pusher if you would like to file a complaint about the discrimination for the chronic disease of obesity and the lack of access to care. https://gateway.insurance.[place]. gov/UI/CAS.CS.Public.UI/Complai nt.mvc/DisplayConsumerComplaint Form 3. Go to the obesity action coalition's Website and fill out the online form for access to care issues https://www.obesityaction.org/a ction-center/dgvhgd-gvwxlc-ku-c are-issues/ 4. Other people to contact: your Senator or House Shore Worker. Ask them to support the Treat and Reduce Obesity Act which would allow medicate to cover anti-obesity medications. Most insurance companies follow Medicare guidelines in what they will cover. https://www.obesityaction.org/t erik/ https://www.congress.gov/member s/ebly-ubod-jakxxt Important talking points: [place] obesity Facts https://www.obesityaction.org/w p-content/uploads/Ytwk6466.pdf Obesity is associated with over 200 chronic medical conditions including diabetes, heart disease, and at least 13 different types of cancer 93% of those who live with obesity have unmet medical needs There is a 34% increase in medical costs per year in a person affected by obesity over a normal weight person. According to a 2021 study by [employer], [place] ranks at No. 13 in the list of the most obese and overweight states.[place] ranked No. 1 in the highest percentage of overweight children in the nation, No. 9 highest percentage of obese adults, and No. 11 in percentage of adults with hypertension. Nearly half of [facility] (46.7%) are obese, per a new analysis from [facility] at the [facility].[email or web address]-[email or web address]-gvupew-[email or web address]-average METFORMIN Dosing -- Begin Metformin 500 mg [...] (nih.gov) Is metformin a wonder drug? - [facility] Common side effects of this [...] MD, clinical director of adult diabetes at [facility], explains why timing metformin HCL [...] night in treating fasting high blood sugar. [email or web address] [email or web address]/ Metformin: Patient drug information Warning Rarely, [...] with your doctor. documented in this encounter [facility] 10-28-2022 History of Presen t illness Narrative BMI Obesity Medicine PostOp Note- VIRTUAL VISIT October 27, 2022 I have communicated my name and active licensure. The patient's identity and physical location were verified at the time of this visit. Either the patient or their legal account executive sales representative has been informed of the risks [...] SINCE LAST VISIT?: NONE Interval History Allan Burr is doing well after surgery and has no complaints. She presents secondary to weight recurrence. 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 documented in this encounter [facility] 06-27-2020 History of Past i llness Narrative Problem Noted Date Diagnosed Date Resolved Date Personal history of urinary calculi 06/27/202002/0202/02/2023 documented as of this encounter (statuses as of 02/02/2023) [facility] History of Past illness Narrative* Problem Noted Date Diagnosed Date Resolved Date Personal history of urinary calculi 06/27/202002/0202/02/2023 documented as of this encounter (statuses as of 02/04/2023) [facility] History of Past illness Narrative* Problem Noted Date Diagnosed Date Resolved Date Personal history of urinary calculi 06/27/202002/0202/02/2023 documented as of this encounter (statuses as of 02/11/2023) [facility] History of Past illness Narrative* Problem Noted Date Diagnosed Date Resolved Date Personal history of urinary calculi 06/27/202002/0202/02/2023 documented as of this encounter (statuses as of 03/24/2023) [facility] History of Past illness Narrative* Problem Noted Date Diagnosed Date Resolved Date Personal history of urinary calculi 06/27/202002/0202/02/2023 documented as of this encounter (statuses as of 07/06/2023) [facility] History of Past illness Narrative* Problem Noted Date Diagnosed Date Resolved Date Personal history of urinary calculi 06/27/202002/0202/02/2023 documented as of this encounter (statuses as of 07/26/2023) [facility] Diagnosis Class 1 obesity with body mass index (BMI) of 32.0 to 32.9 in adult, unspecified obesity type, unspecified whether serious comorbidity present- Primary PCOS (polycystic ovarian syndrome) Polycystic ovaries S/P laparoscopic sleeve gastrectomy Bariatric surgery status [facility] Diagnosis Class 1 obesity with body mass index (BMI) of 32.0 to 32.9 in adult, unspecified obesity type, unspecified whether serious comorbidity present- Primary documented in this [facility] Diagnosis Class 1 obesity with body mass index (BMI) of 32.0 to 32.9 in adult, unspecified obesity type, unspecified whether serious comorbidity present [facility] Diagnosis Nasal congestion- Primary Other diseases of nasal cavity and sinuses [facility] Class 1 obesity with body mass index (BMI) of 32.0 to 32.9 in adult, unspecified obesity type, unspecified whether serious comorbidity present- Primary [facility] this [facility] Diagnosis Class 1 obesity with body mass index (BMI) of 32.0 to 32.9 in adult, unspecified obesity type, unspecified whether serious comorbidity present [facility] Diagnosis S/P laparoscopic sleeve gastrectomy- Primary Bariatric surgery status Class 1 obesity with body mass index (BMI) of 32.0 to 32.9 in adult, unspecified obesity type, unspecified whether serious comorbidity present History of hypothyroidism Personal history of other endocrine, metabolic, and immunity disorders [facility]* Diagnosis Overweight- Primary Mild obstructive sleep apnea Obstructive sleep apnea (adult) (pediatric) [facility]* Diagnosis Class 1 obesity with body mass index (BMI) of 32.0 to 32.9 in adult, unspecified obesity type, unspecified whether serious comorbidity present [facility]* Diagnosis 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 documented in this encounter [facility] note* Diagnosis Class 1 obesity with body mass index (BMI) of 32.0 to 32.9 in adult, unspecified obesity type, unspecified whether serious comorbidity present [facility] Diagnosis Hereditary hemochromatosis (HCC)- Primary Hereditary hemochromatosis [facility]* Diagnosis Hereditary hemochromatosis (HCC)- Primary Hereditary hemochromatosis [facility] Diagnosis Overweight- Primary Mild obstructive sleep apnea Obstructive sleep apnea (adult) (pediatric) documented [facility] this [facility] Diagnosis History of sleeve gastrectomy- Primary Overweight (BMI 25.0-29.9) Overweight Dietary counseling and surveillance Dietary surveillance and counseling documented [facility] this [facility] Diagnosis Hereditary hemochromatosis (HCC)- Primary Hereditary hemochromatosis [facility] Diagnosis Acute left otitis media- Primary Fever, unspecified fever cause Wheezing Bronchitis Bronchitis, not specified as acute or chronic [facility] Diagnosis Bronchitis- Primary Bronchitis, not specified as acute or chronic [facility]* Diagnosis Hypokalemia- Primary Hypopotassemia Hereditary hemochromatosis (CMS/HCC) Hereditary hemochromatosis Pneumonia of right lower lobe due to infectious organism [facility]* Diagnosis Low serum calcium- Primary [facility]* Diagnosis Hereditary hemochromatosis (HCC)- Primary Hereditary hemochromatosis [facility] Diagnosis Overweight- Primary [facility] Diagnosis Candidiasis- Primary [facility]* Diagnosis Class 1 obesity with body mass index (BMI) of 32.0 to 32.9 in adult, unspecified obesity type, unspecified whether serious comorbidity present documented in this encounter [facility] note* Diagnosis Overweight- Primary History of obesity Personal history of other specified diseases Encounter for surgical aftercare following surgery of digestive system Aftercare following surgery of the teeth, oral cavity and digestive system, NEC S/P laparoscopic sleeve gastrectomy Bariatric surgery status [facility] Diagnosis Nasal congestion- Primary Other diseases of nasal cavity and sinuses Antibiotic-induced yeast infection Acute non-recurrent pansinusitis [facility]* Diagnosis Chest congestion- Primary Other symptoms involving respiratory system and chest Viral URI with cough Exposure to influenza Contact with or exposure to other viral diseases Chest congestion Other symptoms involving respiratory system and chest [facility]* Diagnosis Diarrhea, unspecified type- Primary Upper respiratory tract infection, unspecified type [facility]* Diagnosis Class 1 obesity with body mass index (BMI) of 32.0 to 32.9 in adult, unspecified obesity type, unspecified whether serious comorbidity present [facility] Diagnosis Adjustment disorder with mixed anxiety and depressed mood (CMS/HCC) Adjustment disorder with mixed anxiety and depressed mood Marital problems Counseling for marital and partner problems, unspecified [facility]* Diagnosis Overweight [facility] Diagnosis Adjustment disorder with mixed anxiety and depressed mood (CMS/HCC) Adjustment disorder with mixed anxiety and depressed mood Marital problems Counseling for marital and partner problems, unspecified [facility]* Diagnosis Adjustment disorder with mixed anxiety and depressed mood (CMS/HCC) Adjustment disorder with mixed anxiety and depressed mood Marital problems Counseling for marital and partner problems, unspecified documented in this encounter [facility]* Diagnosis Class 1 obesity with body mass index (BMI) of 32.0 to 32.9 in adult, unspecified obesity type, unspecified whether serious comorbidity present [facility] Diagnosis Adjustment disorder with mixed anxiety and depressed mood Adjustment disorder with mixed anxiety and depressed mood Marital problems Counseling for marital and partner problems, unspecified [facility]* Diagnosis History of obesity- Primary Personal history of other specified diseases S/P laparoscopic sleeve gastrectomy Bariatric surgery status PCOS (polycystic ovarian syndrome) Polycystic ovaries Mild obstructive sleep apnea Obstructive sleep apnea (adult) (pediatric) Overweight [facility] Diagnosis Adjustment disorder with mixed anxiety and depressed mood Adjustment disorder with mixed anxiety and depressed mood Marital problems Counseling for marital and partner problems, unspecified [facility]* Diagnosis Adjustment disorder with mixed anxiety and depressed mood Adjustment disorder with mixed anxiety and depressed mood Marital problems Counseling for marital and partner problems, unspecified [facility]* Diagnosis History of obesity- Primary Personal history of other specified diseases [facility] Diagnosis Class 1 obesity with body mass index (BMI) of 32.0 to 32.9 in adult, unspecified obesity type, unspecified whether serious comorbidity present [facility] Diagnosis Adjustment disorder with mixed anxiety and depressed mood Adjustment disorder with mixed anxiety and depressed mood Marital problems Counseling for marital and partner problems, unspecified [facility]* Diagnosis Adjustment disorder with mixed anxiety and depressed mood Adjustment disorder with mixed anxiety and depressed mood Marital problems Counseling for marital and partner problems, unspecified documented in this encounter [facility]* Diagnosis Adjustment disorder with mixed anxiety and depressed mood Marital problems Counseling for marital and partner problems, unspecified [facility]* Diagnosis Need for immunization against influenza- Primary Need for prophylactic vaccination and inoculation against influenza [facility] Marital problems Counseling for marital and partner problems, unspecified Adjustment disorder with mixed anxiety and depressed mood documented [facility] this encounter [facility]Not on filedocumented in [facility] Summary Purpose Family History No Family History Records FoundNo Family History Records FoundNo Family History Records FoundNo Family History Records FoundNo Family History Records FoundNo Family History Records FoundNo Family History Records Found Advance Directives Documents on File Type Date Recorded 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 Advance Directive(s) 11/20/2016 2:51 PM Documents on File Type Date Recorded 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 Advance Directive(s) 11/20/2016 2:51 PM Reason for Referral Specialty Diagnoses / Procedures Referred By Contac t Referred To Contact Nutrition Diagnoses Class 1 obesity with body mass index (BMI) of 32.0 to 32.9 in adult, unspecified obesity type, unspecified whether serious comorbidity present Procedures CONSULT TO NUTRITION THERAPY MEDICAL NUTRITION ASSMT&IVNTJ INDIV EACH 15 PR MEDICAL NUTRITION ASSMT&IVNTJ INDIV EACH 15 PR MEDICAL NUTRITION ASSMT&IVNTJ INDIV EACH 15 PR MEDICAL NUTRITION ASSMT&IVNTJ INDIV EACH 15 PR Nicole Marquis APRN.DESIGN TRANSFERRER [id number] [id number] Referral ID Status Reason Start Date Expiration Date Visits Requested Visits Authorized [id number] Authorized PCP Requested Referral 10/28/2022 10/28/2023 1 1 Specialty Diagnoses / Procedures Referred By Contac t Referred To Contact Diagnoses Class 1 obesity with body mass index (BMI) of 32.0 to 32.9 in adult, unspecified obesity type, unspecified whether serious comorbidity present Nicole Marquis APRN.DESIGN TRANSFERRER [id number] [place] [id number] Referral ID Status Reason Start Date Expiration Date Visits Re quested Visits Authorized [id number] Closed 1 1 Additional Source Comments INFORMATION SOURCE (unrecogn ized section and content) DATE CREATED AUTHOR 05/19/2021 [facility] dical Specialist DATE CREATED AUTHOR AUTHOR'S ORGANIZ ATION 06/21/2021 [facility] DATE CREATED AUTHOR AUTHOR'S ORGANIZ ATION 09/16/2024 [facility] DATE CREATED AUTHOR AUTHOR'S ORGANIZ ATION 10/05/2024 [facility] DATE CREATED AUTHOR AUTHOR'S ORGANIZ ATION 01/16/2025 [facility] DATE CREATED AUTHOR AUTHOR'S ORGANIZ ATION 01/21/2025 [facility] DATE CREATED AUTHOR AUTHOR'S ORGANIZ ATION 01/22/2025 [facility] dicma Specialists EPIC Source Comments (unrecognize d section and content) In the event this informatio n is protected by the Federal Confidentiality of Alcohol and Drug Abuse Patient Records regulations: The Federal rules restrict any use of the information to criminally investigate or prosecute any alcohol or drug abuse patient.[facility] the event this information is protected by the Federal Confidentiality of Alcohol and Drug Abuse Patient Records regulations: The Federal rules restrict any use of the information to criminally investigate or prosecute any alcohol or drug abuse patient.[facility] Center[facility] the event this information is protected by the Federal Confidentiality of Alcohol and Drug Abuse Patient Records regulations: The Federal rules restrict any use of the information to criminally investigate or prosecute any alcohol or drug abuse patient.[facility] Center[facility] the event this information is protected by the Federal Confidentiality of Alcohol and Drug Abuse Patient Records regulations: The Federal rules restrict any use of the information to criminally investigate or prosecute any alcohol or drug abuse patient.[facility] Center[facility] the event this information is protected by the Federal Confidentiality of Alcohol and Drug Abuse Patient Records regulations: The Federal rules restrict any use of the information to criminally investigate or prosecute any alcohol or drug abuse patient.[facility] Center[facility] the event this information is protected by the Federal Confidentiality of Alcohol and Drug Abuse Patient Records regulations: The Federal rules restrict any use of the information to criminally investigate or prosecute any alcohol or drug abuse patient.[facility] Center[facility] the event this information is protected by the Federal Confidentiality of Alcohol and Drug Abuse Patient Records regulations: The Federal rules restrict any use of the information to criminally investigate or prosecute any alcohol or drug abuse patient.[facility] Center[facility] the event this information is protected by the Federal Confidentiality of Alcohol and Drug Abuse Patient Records regulations: The Federal rules restrict any use of the information to criminally investigate or prosecute any alcohol or drug abuse patient.[facility] Center[facility] the event this information is protected by the Federal Confidentiality of Alcohol and Drug Abuse Patient Records regulations: The Federal rules restrict any use of the information to criminally investigate or prosecute any alcohol or drug abuse patient.[facility] Center[facility] the event this information is protected by the Federal Confidentiality of Alcohol and Drug Abuse Patient Records regulations: The Federal rules restrict any use of the information to criminally investigate or prosecute any alcohol or drug abuse patient.[facility] Center[facility] the event this information is protected by the Federal Confidentiality of Alcohol and Drug Abuse Patient Records regulations: The Federal rules restrict any use of the information to criminally investigate or prosecute any alcohol or drug abuse patient.[facility] Center[facility] the event this information is protected by the Federal Confidentiality of Alcohol and Drug Abuse Patient Records regulations: The Federal rules restrict any use of the information to criminally investigate or prosecute any alcohol or drug abuse patient.[facility] Center[facility] the event this information is protected by the Federal Confidentiality of Alcohol and Drug Abuse Patient Records regulations: The Federal rules restrict any use of the information to criminally investigate or prosecute any alcohol or drug abuse patient.[facility] Center[facility] the event this information is protected by the Federal Confidentiality of Alcohol and Drug Abuse Patient Records regulations: The Federal rules restrict any use of the information to criminally investigate or prosecute any alcohol or drug abuse patient.[facility] Center[facility] the event this information is protected by the Federal Confidentiality of Alcohol and Drug Abuse Patient Records regulations: The Federal rules restrict any use of the information to criminally investigate or prosecute any alcohol or drug abuse patient.[facility] Center[facility] the event this information is protected by the Federal Confidentiality of Alcohol and Drug Abuse Patient Records regulations: The Federal rules restrict any use of the information to criminally investigate or prosecute any alcohol or drug abuse patient.[facility] Center[facility] the event this information is protected by the Federal Confidentiality of Alcohol and Drug Abuse Patient Records regulations: The Federal rules restrict any use of the information to criminally investigate or prosecute any alcohol or drug abuse patient.[facility] CenterIn the event this information is protected by the Federal Confidentiality of Alcohol and Drug Abuse Patient Records regulations: The Federal rules restrict any use of the information to criminally investigate or prosecute any alcohol or drug abuse patient.[facility] Center[facility] the event this information is protected by the Federal Confidentiality of Alcohol and Drug Abuse Patient Records regulations: The Federal rules restrict any use of the information to criminally investigate or prosecute any alcohol or drug abuse patient.[facility] CenterIn the event this information is protected by the Federal Confidentiality of Alcohol and Drug Abuse Patient Records regulations: The Federal rules restrict any use of the information to criminally investigate or prosecute any alcohol or drug abuse patient.[facility] CenterIn the event this information is protected by the Federal Confidentiality of Alcohol and Drug Abuse Patient Records regulations: The Federal rules restrict any use of the information to criminally investigate or prosecute any alcohol or drug abuse patient.[facility] Center[facility] the event this information is protected by the Federal Confidentiality of Alcohol and Drug Abuse Patient Records regulations: The Federal rules restrict any use of the information to criminally investigate or prosecute any alcohol or drug abuse patient.[facility] CenterIn the event this information is protected by the Federal Confidentiality of Alcohol and Drug Abuse Patient Records regulations: The Federal rules restrict any use of the information to criminally investigate or prosecute any alcohol or drug abuse patient.[facility] CenterIn the event this information is protected by the Federal Confidentiality of Alcohol and Drug Abuse Patient Records regulations: The Federal rules restrict any use of the information to criminally investigate or prosecute any alcohol or drug abuse patient.[facility] CenterIn the event this information is protected by the Federal Confidentiality of Alcohol and Drug Abuse Patient Records regulations: The Federal rules restrict any use of the information to criminally investigate or prosecute any alcohol or drug abuse patient.[facility] CenterIn the event this information is protected by the Federal Confidentiality of Alcohol and Drug Abuse Patient Records regulations: The Federal rules restrict any use of the information to criminally investigate or prosecute any alcohol or drug abuse patient.[facility] CenterIn the event this information is protected by the Federal Confidentiality of Alcohol and Drug Abuse Patient Records regulations: The Federal rules restrict any use of the information to criminally investigate or prosecute any alcohol or drug abuse patient.[facility] CenterIn the event this information is protected by the Federal Confidentiality of Alcohol and Drug Abuse Patient Records regulations: The Federal rules restrict any use of the information to criminally investigate or prosecute any alcohol or drug abuse patient.[facility] CenterIn the event this information is protected by the Federal Confidentiality of Alcohol and Drug Abuse Patient Records regulations: The Federal rules restrict any use of the information to criminally investigate or prosecute any alcohol or drug abuse patient.[facility] CenterIn the event this information is protected by the Federal Confidentiality of Alcohol and Drug Abuse Patient Records regulations: The Federal rules restrict any use of the information to criminally investigate or prosecute any alcohol or drug abuse patient.[facility] CenterIn the event this information is protected by the Federal Confidentiality of Alcohol and Drug Abuse Patient Records regulations: The Federal rules restrict any use of the information to criminally investigate or prosecute any alcohol or drug abuse patient.[facility] CenterIn the event this information is protected by the Federal Confidentiality of Alcohol and Drug Abuse Patient Records regulations: The Federal rules restrict any use of the information to criminally investigate or prosecute any alcohol or drug abuse patient.[facility] CenterIn the event this information is protected by the Federal Confidentiality of Alcohol and Drug Abuse Patient Records regulations: The Federal rules restrict any use of the information to criminally investigate or prosecute any alcohol or drug abuse patient.[facility] CenterIn the event this information is protected by the Federal Confidentiality of Alcohol and Drug Abuse Patient Records regulations: The Federal rules restrict any use of the information to criminally investigate or prosecute any alcohol or drug abuse patient.[facility] CenterIn the event this information is protected by the Federal Confidentiality of Alcohol and Drug Abuse Patient Records regulations: The Federal rules restrict any use of the information to criminally investigate or prosecute any alcohol or drug abuse patient.[facility] CenterIn the event this information is protected by the Federal Confidentiality of Alcohol and Drug Abuse Patient Records regulations: The Federal rules restrict any use of the information to criminally investigate or prosecute any alcohol or drug abuse patient.[facility] CenterIn the event this information is protected by the Federal Confidentiality of Alcohol and Drug Abuse Patient Records regulations: The Federal rules restrict any use of the information to criminally investigate or prosecute any alcohol or drug abuse patient.[facility] CenterIn the event this information is protected by the Federal Confidentiality of Alcohol and Drug Abuse Patient Records regulations: The Federal rules restrict any use of the information to criminally investigate or prosecute any alcohol or drug abuse patient.[facility] CenterIn the event this information is protected by the Federal Confidentiality of Alcohol and Drug Abuse Patient Records regulations: The Federal rules restrict any use of the information to criminally investigate or prosecute any alcohol or drug abuse patient.[facility] CenterIn the event this information is protected by the Federal Confidentiality of Alcohol and Drug Abuse Patient Records regulations: The Federal rules restrict any use of the information to criminally investigate or prosecute any alcohol or drug abuse patient.[facility] CenterIn the event this information is protected by the Federal Confidentiality of Alcohol and Drug Abuse Patient Records regulations: The Federal rules restrict any use of the information to criminally investigate or prosecute any alcohol or drug abuse patient.[facility] CenterIn the event this information is protected by the Federal Confidentiality of Alcohol and Drug Abuse Patient Records regulations: The Federal rules restrict any use of the information to criminally investigate or prosecute any alcohol or drug abuse patient.[facility] CenterIn the event this information is protected by the Federal Confidentiality of Alcohol and Drug Abuse Patient Records regulations: The Federal rules restrict any use of the information to criminally investigate or prosecute any alcohol or drug abuse patient.[facility] CenterIn the event this information is protected by the Federal Confidentiality of Alcohol and Drug Abuse Patient Records regulations: The Federal rules restrict any use of the information to criminally investigate or prosecute any alcohol or drug abuse patient.[facility] Reason for Visit (unrecogniz ed section and content) Reason Comments Post Op Reason Onset Date Comments Refill Request 12/18/2022 Reason Comments Med Change Request Reason Comments Obesity Reason Comments Sinusitis Reason Onset Date Comments Refill Request 07/05/2023 Reason Comments Refill Request Reason Comments Obesity F/u Reason Comments Consult Abnormal Lab Specialty Diagnoses / Procedures Referred By Contaida t Referred To Contact Hematology Diagnoses High serum transferrin saturation Procedures CONSULT TO HEMATOLOGY OFFICE/OUTPATIENT NEW HIGH MDM 60 MINUTES Nicloe Marquis, JUICE.DESIGN TRANSFERRER [address] [address] Referral ID Status Reason Start Date Expiration Date V isits Requested Visits Authorized [id number] Closed PCP Requested Referral 12/20/2023 12/19/2024 1 1 Reason Comments Follow Up Tests Results Reason Comments treatment parameters Reason Comments Post Op Reason Comments Assessment Patient Education Reason Comments URI Reason Comments Follow-up Reason Onset Date Comments Refill Request 04/19/2024 Reason Comments Facial Pain Reason Comments chest congestion Reason Comments Cough Reason Comments AD (Adjustment Disorder) Reason Onset Date Comments Refill Request 07/05/2024 Reason Comments Established Patient Follow up weight man agement Reason Comments AD (Adjustment Disorder) Family Problem Care Teams (unrecognized sec tion and content) Psychiatric Clinical Nurse Specialist Relationship Specialty Start Date End Date Mariya Prather [address] [place] [address] PCP - General Family Medicine 05/12/16 Psychiatric Clinical Nurse Specialist Relationship Specialty Start Date End Date Mariya Prather [address] [place] [address] PCP - General Family Medicine 05/12/16 Psychiatric Clinical Nurse Specialist Relationship Specialty Start Date End Date Mariya Prather [address] [place] [address] PCP - General Family Medicine 05/12/16 Psychiatric Clinical Nurse Specialist Relationship Specialty Start Date End Date Mariya Prather [address] [place] [address] PCP - General Family Medicine 05/12/16 Psychiatric Clinical Nurse Specialist Relationship Specialty Start Date End Date Mariya Prather [address] [place] [address] PCP - General Family Medicine 05/12/16 Psychiatric Clinical Nurse Specialist Relationship Specialty Start Date End Date Mariya Prather [address] [place] [address] PCP - General Family Medicine 05/12/16 Psychiatric Clinical Nurse Specialist Relationship Specialty Start Date End Date Mariya Prather [address] [place] [address] PCP - General Family Medicine 05/12/16 Psychiatric Clinical Nurse Specialist Relationship Specialty Start Date End Date Lakesha Patel NP [address] [facility] [place] [address] PCP - [facility] 09/10/22 Mariya Prather MD [address] [facility] [place] [address] PCP - General Family Medicine 11/11/22 Psychiatric Clinical Nurse Specialist Relationship Specialty Start Date End Date Lakesha Patel NP [address] [facility] [place] [address] PCP - [facility] 09/10/22 Mariya Prather MD [address] [facility] [place] [address] PCP - General Family Medicine 11/11/22 Psychiatric Clinical Nurse Specialist Relationship Specialty Start Date End Date Mariya Prather [address] [facility] [place] [address] PCP - General Family Medicine 05/12/16 Psychiatric Clinical Nurse Specialist Relationship Specialty Start Date End Date Mariya Prather [address] [facility] [place] [address] PCP - General Family Medicine 05/12/16 Psychiatric Clinical Nurse Specialist Relationship Specialty Start Date End Date Mariya Prather [address] [facility] [place] [address] PCP - General Family Medicine 05/12/16 Psychiatric Clinical Nurse Specialist Relationship Specialty Start Date End Date Mariya Prather [address] [place] [address] PCP - General Family Medicine 05/12/16 Psychiatric Clinical Nurse Specialist Relationship Specialty Start Date End Date Vanessa Pratheryossi Grant [address] [place] [address] PCP - General Family Medicine 05/12/16 Psychiatric Clinical Nurse Specialist Relationship Specialty Start Date End Date Vanessa Pratheryossi Grant [address] [place] [address] PCP - General Family Medicine 05/12/16 Psychiatric Clinical Nurse Specialist Relationship Specialty Start Date End Date Ai Prathercarlitos Grant [address] [place] [address] PCP - General Family Medicine 05/12/16 Psychiatric Clinical Nurse Specialist Relationship Specialty Start Date End Date Ai Prathercarlitos Grant [address] [place] [address] PCP - General Family Medicine 05/12/16 Psychiatric Clinical Nurse Specialist Relationship Specialty Start Date End Date Vanessa Pratheryossi Grant [address] [place] [address] PCP - General Family Medicine 05/12/16 Psychiatric Clinical Nurse Specialist Relationship Specialty Start Date End Date Ai Prathercarlitos Grant [address] [place] [address] PCP - General Family Medicine 05/12/16 Psychiatric Clinical Nurse Specialist Relationship Specialty Start Date End Date Ai Prathercarlitos Grant [address] [place] [address] PCP - General Family Medicine 05/12/16 Psychiatric Clinical Nurse Specialist Relationship Specialty Start Date End Date Mariya Prather [address] [place] [address] PCP - General Family Medicine 05/12/16 Psychiatric Clinical Nurse Specialist Relationship Specialty Start Date End Date Mariya Prather MD [address] [place] [address] PCP - General Family Medicine 11/11/22 Mariya Prather MD [address] [place] [address] PCP - [facility] 05/13/19 04/11/99 Psychiatric Clinical Nurse Specialist Relationship Specialty Start Date End Date Mariya Prather [address] [place] [address] PCP - General Family Medicine 05/12/16 Psychiatric Clinical Nurse Specialist Relationship Specialty Start Date End Date Mariya Prather [address] [place] [address] PCP - General Family Medicine 05/12/16 Psychiatric Clinical Nurse Specialist Relationship Specialty Start Date End Date Mariya Prather [address] [place] [address] PCP - General Family Medicine 05/12/16 Psychiatric Clinical Nurse Specialist Relationship Specialty Start Date End Date Mariya Prather [address] [place] [address] PCP - General Family Medicine 05/12/16 Psychiatric Clinical Nurse Specialist Relationship Specialty Start Date End Date Mariya Prather [address] [place] [address] PCP - General Family Medicine 05/12/16 Psychiatric Clinical Nurse Specialist Relationship Specialty Start Date End Date Mariya Prather MD [address] [place] [address] PCP - General Family Medicine 11/11/22 Mariya Prather MD [address] [place] [address] PCP - [facility] 05/13/19 04/11/99 Psychiatric Clinical Nurse Specialist Relationship Specialty Start Date End Date Mariya Prather MD [address] [place] [address] PCP - General Family Medicine 11/11/22 Mariya Prather MD [address] [place] [address] PCP - [facility] 05/13/19 04/11/99 Psychiatric Clinical Nurse Specialist Relationship Specialty Start Date End Date Mariya Prather [address] [place] [address] [phone] PCP - General Family Medicine 05/12/16 Psychiatric Clinical Nurse Specialist Relationship Specialty Start Date End Date Mariya Prather MD [address] [place] [address] PCP - General Family Medicine 11/11/22 Mariya Prather MD [address] [place] [address] PCP - [facility] 05/13/19 04/11/99 Psychiatric Clinical Nurse Specialist Relationship Specialty Start Date End Date Mariya Prather MD [address] [place] [address] PCP - General Family Medicine 11/11/22 Mariya Prather MD [address] [place] [address] PCP - [facility] 05/13/19 04/11/99 Psychiatric Clinical Nurse Specialist Relationship Specialty Start Date End Date Mariya Prather MD [address] [place] [address] PCP - General Family Medicine 11/11/22 Mariya Prather MD [address] [place] [address] PCP - [facility] 05/13/19 04/11/99 Psychiatric Clinical Nurse Specialist Relationship Specialty Start Date End Date Mariya Prather MD [address] [place] [address] PCP - General Family Medicine 11/11/22 Mariya Prather MD [address] [place] [address] PCP - [facility] 05/13/19 04/11/99 Psychiatric Clinical Nurse Specialist Relationship Specialty Start Date End Date Mraiya Prather MD [address] [place] [address] PCP - General Family Medicine 11/11/22 Mariya Prather MD [address] [place] [address] PCP - [facility] 05/13/19 04/11/99 Psychiatric Clinical Nurse Specialist Relationship Specialty Start Date End Date Mariya Prather MD [address] [place] [address] PCP - General Family Medicine 11/11/22 Mariya Prather MD [address] [facility] [place] [address] PCP - [facility] 05/13/19 04/11/99 Psychiatric Clinical Nurse Specialist Relationship Specialty Start Date End Date Mariya Prather MD [address] [facility] [place] [address] PCP - General Family Medicine 11/11/22 Mariya Prather MD [address] [facility] [place] [address] PCP - [facility] 05/13/19 04/11/99 Palak Woodson LPN [address] [facility] [address] [place] [address] Licensed Practical Nurse Family Medicine 03/28/24 Psychiatric Clinical Nurse Specialist Relationship Specialty Start Date End Date Mariya Prather [address] [facility] [address] [facility] [address] PCP - General Family Medicine 05/12/16 Psychiatric Clinical Nurse Specialist Relationship Specialty Start Date End Date Mariya Prather MD [address] [facility] [place] [address] PCP - General Family Medicine 11/11/22 Mariya Prather MD [address] [facility] [place] [address] PCP - [facility] 05/13/19 04/11/99 Chintan Palak, SECOND WATCH SERGEANT [address] [address] Licensed Practical Nurse Family Medicine 03/28/24 Psychiatric Clinical Nurse Specialist Relationship Specialty Start Date End Date Mariya Prather MD [address] [place] [address] PCP - General Family Medicine 11/11/22 Mariya Prather MD [address] [place] [address] PCP - [facility] 05/13/19 04/11/99 Palak Woodson SECOND WATCH SERGEANT [address] [address] Licensed Practical Nurse Family Medicine 03/28/24 Psychiatric Clinical Nurse Specialist Relationship Specialty Start Date End Date Mariya Prather MD [address] [place] [address] PCP - General Family Medicine 11/11/22 Mariya Prather MD [address] [place] [address] PCP - [facility] 05/13/19 04/11/99 Psychiatric Clinical Nurse Specialist Relationship Specialty Start Date End Date Mariya Prather MD [address] [place] [address] PCP - General Family Medicine 11/11/22 Mariya Prather MD [address] [place] [address] PCP - [facility] 05/13/19 04/11/99 Psychiatric Clinical Nurse Specialist Relationship Specialty Start Date End Date Mariya Prather [address] [place] [address] PCP - General Family Medicine 05/12/16 Psychiatric Clinical Nurse Specialist Relationship Specialty Start Date End Date Mariya Prather MD [address] [place] [address] PCP - General Family Medicine 11/11/22 Mariya Prather MD [address] [place] [address] PCP - [facility] 05/13/19 04/11/99 Psychiatric Clinical Nurse Specialist Relationship Specialty Start Date End Date Mariya Prather MD [address] [place] [address] PCP - General Family Medicine 11/11/22 Mariya Prather MD [address] [place] [address] PCP - [facility] 05/13/19 04/11/99 Psychiatric Clinical Nurse Specialist Relationship Specialty Start Date End Date Mariya Prather MD [address] [place] [address] PCP - General Family Medicine 11/11/22 Mariya Prather MD [address] [place] [address] PCP - [facility] 05/13/19 04/11/99 Nam Mehta LPC Therapist Behavioral Health 10/09/24 Psychiatric Clinical Nurse Specialist Relationship Specialty Start Date End Date Mariya Prather MD [address] [place] [address] PCP - General Family Medicine 11/11/22 Mariya Prather MD [address] [place] [address] PCP - [facility] 05/13/19 04/11/99 Nam Mehta LPC Therapist Behavioral Health 10/09/24 Psychiatric Clinical Nurse Specialist Relationship Specialty Start Date End Date Mariya Prather [address] [place] [address] PCP - General Family Medicine 05/12/16 Psychiatric Clinical Nurse Specialist Relationship Specialty Start Date End Date Mariya Prather MD [address] [place] [address] PCP - General Family Medicine 11/11/22 Mariya Prather MD [address] [place] [address] PCP - [facility] 05/13/19 04/11/99 Nam Mehta LPC Therapist Behavioral Health 10/09/24 Psychiatric Clinical Nurse Specialist Relationship Specialty Start Date End Date Mariya Prather MD [address] [place] [address] PCP - General Family Medicine 11/11/22 Mariya Prather MD [address] [place] [address] PCP - [facility] 05/13/19 04/11/99 Nam Mehta LPC Therapist Behavioral Health 10/09/24 Psychiatric Clinical Nurse Specialist Relationship Specialty Start Date End Date Mariya Prather MD [address] [place] [address] PCP - General Family Medicine 11/11/22 Mariya Prather MD [address] [place] [address] PCP - [facility] 05/13/19 04/11/99 Nam Mehta LPC Therapist Behavioral Health 10/09/24 Psychiatric Clinical Nurse Specialist Relationship Specialty Start Date End Date Mariya Prather MD [address] [place] [address] PCP - General Family Medicine 11/11/22 Mariya Prather MD [address] [place] [address] PCP - [facility] 05/13/19 04/11/99 Nam Mehta LPC Therapist Behavioral Health 10/09/24 Psychiatric Clinical Nurse Specialist Relationship Specialty Start Date End Date Mariya Prather MD [address] [place] [address] PCP - General Family Medicine 05/12/16 Psychiatric Clinical Nurse Specialist Relationship Specialty Start Date End Date Mariya Prather MD [address] [place] [address] PCP - General Family Medicine 05/12/16 Psychiatric Clinical Nurse Specialist Relationship Specialty Start Date End Date Mariya Prather MD [address] [place] [address] PCP - General Family Medicine 11/11/22 Mariya Prather MD [address] [place] [address] PCP - [facility] 05/13/19 04/11/99 Nam Mehta LPC Therapist Behavioral Health 10/09/24 Psychiatric Clinical Nurse Specialist Relationship Specialty Start Date End Date Mariya Prather MD [address] [facility] [place] [address] PCP - General Family Medicine 11/11/22 Mariya Prather MD [address] [facility] [place] [address] PCP - [facility] 05/13/19 04/11/99 Nam Mehta LPC Therapist Behavioral Health 10/09/24 Psychiatric Clinical Nurse Specialist Relationship Specialty Start Date End Date Mariya Prather MD [address] [place] [address] PCP - General Family Medicine 11/11/22 Nam Mehta LPC Therapist Behavioral Health 10/09/24 Psychiatric Clinical Nurse Specialist Relationship Specialty Start Date End Date Mariya Prather MD [address] [place] [address] PCP - General Family Medicine 11/11/22 Nam Mehta LPC Therapist Behavioral Health 10/09/24 Psychiatric Clinical Nurse Specialist Relationship Specialty Start Date End Date Mariya Prather MD [address] [place] [address] PCP - General Family Medicine 11/11/22 Nam Mehta LPC Therapist Behavioral Health 10/09/24 Psychiatric Clinical Nurse Specialist Relationship Specialty Start Date End Date Mariya Prather MD [address] [facility] [place] [address] PCP - General Family Medicine 02/06/19 Psychiatric Clinical Nurse Specialist Relationship Specialty Start Date End Date Mariya Prather MD [address] [facility] [place], [place] [phone] PCP - General Family Medicine 11/11/22 Nam Mehta LPC Therapist Behavioral Health 10/09/24 FOR RECORDS PERTAINING TO PATIENTS WHO ARE [...] BE BASED ON THE PRIMARY CLINICAL RECORDS. [facility]. provides no warranty or guarantee of the accuracy or completeness of information in this document.
== END 2025-01-22 21:22 | disposition home or self-care (01) ==
LOC: LAB 21:21
PROVIDERS: Visit Provider Physician Assistant
DX: Z01.419 Encounter for gynecological examination (general) (routine) without abnormal findings (principal)
CPT/HCPCS: 87624; 88175

== ENCOUNTER 2025-03-06 13:34 | Outpatient (REF) | payer OTHER, BC, SELFPAY ==
--- OUTSIDE RECORDS SUMMARY | 2025-03-01 14:00 | XMS_ITS | Encounter Summary ---
Author Organization [facility] Address [address] [place] [address] Care Team Providers Care Camouflage Assembler Name Role Phone Mariya Grossman MD Primary Care Provider [phone] Source Comments In the event this information is protected by the Federal Confidentiality of Alcohol and Drug AbusePatient Records regulations: The Federal rules restrict any use of the information to criminally investigate or prosecute any alcohol or drug abuse patient.[facility] Reason for Visit * ReasonCommentsEstablished Patient Encounter Details DateTypeDepartmentCare Team (Latest Contact Info)Qjyopubppwn34/20/2025 2:00 PM ESTVisit (SP) Office Hematology/Oncology [address] [place] [address] [place] [address] Titus Taylor MD [address] [place] [address] [place] [address] Hereditary hemochromatosis (Primary Dx) Social History Tobacco UseTypesPacks/DayYears UsedDateSmoking Tobacco: FuwfvlAwnwhctzxw472 04/12/2000 - 04/12/2014Smokeless Tobacco: NeverAlcohol UseStandard Drinks/Week CommentsNo0 (1 standard drink = 0.6 oz pure alcohol)PHQ-2AnswerDate RecordedPHQ- 2 czatj284/20/2025Area Deprivation IndexAnswerDate RecordedNational Score (1- 100), lower number is lower hlcz880010/28/2022State Score (1-10), lower number is lower jdac9423Data from: https://www.neighborhoodatlas.[facility].edu/. Last address used for jl[address]CommentsNoSex and Gender Information ValueDate RecordedSex Assigned at BirthNot on fileLegal DmtVrbzqk19/24/2017 4:07 PM ESTGender IdentityNot on fileSexual OrientationNot on filedocumented as of this encounter Last Filed Vital Signs Vital SignReadingTime TakenCommentsBlood Ymafjoud393/8603/01/2025 2:02 PM EST Lnrui746803/01/2025 2:02 PM FVAHrupddojjrc83.6 ??C (97.9 ??F)03/01/2025 2:02 PM ESTRespiratory Qfxd160305/01/2024 2:02 PM ESTOxygen Plxvdixhlz58%03/01/2025 2:02 PM ESTInhaled Oxygen Concentration--Ndzaua13.9 kg (154 lb 1.6 oz)03/01/2025 2:02 PM ESTHeight--Body Mass Index24.0509 4:02 PM EDTdocumented in this encounter Functional Status * Are you deaf or do you have serious difficulty hearing?AnswerDate of CkollkovimRhgfsdSp06/08/2017 1:49 PM Elayne Nunez APRN.CRIB TENDER * Are you blind or do you have serious difficulty seeing, even when wearing glasses?AnswerDate of MugafbvbbpIqhwmaWp64/08/2017 1:49 PM Elayne Nunez APRN.CRIB TENDER * Do you have serious difficulty walking or climbing stairs?AnswerDate of PoqmstpmwpXtdzcpLn58/08/2017 1:49 PM Elayne Nunez APRN.CRIB TENDER * Do you have difficulty dressing or bathing?AnswerDate of AssessmentAuthorNo 12/18/2016 1:49 PM Elayne Nunez APRN.CRIB TENDER * Because of a physical, mental, or emotional condition, do you have difficulty doing errands alone such as visiting a doctor's office or shopping?AnswerDate of RhfkmywjiuUlsscdTi88/08/2017 1:49 PM Elayne Nunez APRN.CRIB TENDER documented as of this encounter Mental Status * Because of a physical, mental, or emotional condition, do you have serious difficulty concentrating, remembering, or making decisions?AnswerEntry Date XprsnpDl71/08/2017 1:49 PM Elayne Nunez APRN.CRIB TENDER documented in this encounter Patient Instructions * Patient Instructions* Titus Taylor MD - 03/01/2025 2:10 PM EST Blood work today We will schedule therapeutic phlebotomy next week F/u in 3 months documented in this encounter Progress Notes * Titus Taylor MD - 03/01/2025 2:01 PM EST PATIENT NAME: Germaine Burr CLINIC NO.: [id number] ATTENDING PHYSICIAN: Titus Taylor MD DATE OF SERVICE: 03/01/25 Some of the elements of this note have been copied from my previous progress note dated 01/06/24. All the information has been reviewed carefully. Dear Dr. Ela Marquis [address] [facility] [address] thank you for referring Germaine Burr for an opinion regarding elevated iron levels. CHIEF COMPLAINT: Elevated iron levels HPI: Germaine Burr is a 38 year old year old female referred to us for elevated iron levels. 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 Updated visit 01/06/24: Doing well. 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 03/01/25: - Doing well - Had therapeutic phlebotomy x 3 last year - C/o fatigue Current Outpatient Medications Medication Sig tirzepatide (MOUNJARO) 12.5 mg/0.5 mL pen injector Inject 12.5 mg subcutaneously one time a week. Phentermine HCl 37.5 mg tablet Take 1 tablet by mouth once daily for 90 days. ondansetron orally disintegrating (ZOFRAN ODT) 4 mg disintegrating tablet Take 1 tablet by mouth every 8 hours as needed for nausea/vomiting. omeprazole (PRILOSEC) 20 mg capsule Take 1 capsule by mouth once daily. MULTIVITAMIN ORAL Take by mouth. Lactobacillus acidophilus (PROBIOTIC ORAL) Take by mouth. multivit-min/iron/folic/ufu003 (HAIR, SKIN AND NAILS ADVANCED ORAL) Take by mouth. calcium polycarbophil (FIBERCON ORAL) Take by mouth. L-NORGEST/E.ESTRADIOL-E.ESTRAD (AMETHIA ORAL) Take 1 tablet by mouth once daily. No current facility-administered medications for this visit. No Known Allergies PAST MEDICAL HISTORY Diagnosis [...] date: 04/12/2000 Quit date: 04/12/2014 Years since quittin.8 Smokeless [...] of hands/feet. No weakness. PHYSICAL EXAMINATION: LMP 07/11/2024 (Exact Date) There were no vitals taken [...] : Deferred LABS: Glucose (mg/dL) Date Value 10/02/2024 82 12/18/2016 90 Potassium (mmol/L) Date Value 10/02/2024 4.2 12/18/2016 4.4 Sodium (mmol/L) Date Value 10/02/2024 138 12/18/2016 138 Chloride (mmol/L) Date Value 10/02/2024 104 12/18/2016 104 CO2 (mmol/L) Date Value 10/02/2024 23 12/18/2016 20 Creatinine (mg/dL) Date Value 10/02/2024 0.63 12/18/2016 0.51 BUN (mg/dL) Date Value 10/02/2024 17 12/18/2016 5 Anion Gap (mmol/L) Date Value 10/02/2024 11 12/18/2016 14 Calcium (mg/dL) Date Value 12/18/2016 8.8 Calcium, Total (mg/dL) Date Value 10/02/2024 8.5 Protein, Total (g/dL) Date Value 10/02/2024 6.6 11/20/2016 7.0 Albumin (g/dL) Date Value 10/02/2024 4.1 11/20/2016 4.1 Bilirubin, Total (mg/dL) Date Value 10/02/2024 0.4 11/20/2016 0.3 Alkaline Phosphatase (U/L) Date Value 10/02/2024 75 11/20/2016 100 AST (U/L) Date Value 10/02/2024 19 11/20/2016 26 ALT (U/L) Date Value 10/02/2024 12 11/20/2016 20 WBC Date Value Ref Range Status 10/02/2024 7.67 3.70 - 11.00 k/uL Final RBC Date Value Ref Range Status 10/02/2024 4.78 3.90 - 5.20 m/uL Final Hemoglobin Date Value Ref Range Status 10/02/2024 14.6 11.5 - 15.5 g/dL Final Hematocrit Date Value Ref Range Status 10/02/2024 43.0 36.0 - 46.0 % Final MCV Date Value Ref Range Status 10/02/2024 90.0 80.0 - 100.0 fL Final MCH Date Value Ref Range Status 10/02/2024 30.5 26.0 - 34.0 pg Final MCHC Date Value Ref Range Status 10/02/2024 34.0 30.5 - 36.0 g/dL Final RDW-CV Date Value Ref Range Status 10/02/2024 11.8 11.5 - 15.0 % Final Platelet Count Date Value Ref Range Status 10/02/2024 284 150 - 400 k/uL Final MPV Date Value Ref Range Status 10/02/2024 9.3 9.0 - 12.7 fL Final Abs Neut Date Value Ref Range Status 10/02/2024 4.17 1.45 - 7.50 k/uL Final Lymphocytes % Date Value Ref Range Status 10/02/2024 37.3 % Final Abs Lymph Date Value Ref Range Status 10/02/2024 2.86 1.00 - 4.00 k/uL Final Monocytes % Date Value Ref Range Status 10/02/2024 4.8 % Final Abs [place] Date Value Ref Range Status 10/02/2024 0.37 <0.87 k/uL Final Abs Eosin Date Value Ref Range Status 10/02/2024 0.20 <0.46 k/uL Final Basophils % Date Value Ref Range Status 10/02/2024 0.8 % Final Abs Baso Date Value Ref Range Status 10/02/2024 0.06 <0.11 k/uL Final PATH: IMAGING: ASSESSMENT AND PLAN: Germaine Burr is a 38 year old year old female referred to us for elevated iron levels. 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 PLAN: 1. Hereditary hemochromatosis - ICD9: 275.01, ICD10: E83.110 - Had therapeutic phlebotomy x 3 last year - Check CBC ferritin iron studies today - Ferritin was 188 and iron saturation was 89% in September 2024 - We will schedule therapeutic phlebotomy next week based on blood work results today. - All her questions answered in detail - Follow-up in [address] Ela Marquis [address] [facility] [address] thank you for allowing me to participate in Germaine Burr care, if there are any questions or concerns please do not hesitate to contact me at the number below. I spent a total of 30 minutes on the date of the service which included preparing to see the patient, uyzp-pv-ignv patient care, completing clinical documentation, obtaining and/or reviewing separately obtained history, performing a medically appropriate examination, counseling and educating the pat ient/family/caregiver, ordering medications, tests, or procedures, communicating with other HCPs (not separately reported), independently interpreting results (not separately reported), communicatingresults to the patient/family/caregiver, and care coordination (not separately reported). Titus Taylor MD. Hematology/Medical Oncology [facility] [phone] CC: documented in this encounter Plan of Treatment DateTypeDepartmentCare Team (Latest Contact Info)Zosxauvtgni67/09/2025 3:15 PM ESTOffice Visit [facility] [address] [place] [address] [place] [address] Phlebotomy and lab - q 2 weeks for 3 per afkjwpq9203/20/2025 3:30 PM ESTInfatrium [facility]On[facility] [address] [facility] [place] [address] Phlebotomy and lab - q 2 weeks for 3 per zyuhrrt9303/29/2025 2:30 PM ESTOffice Visit [facility] [address] [facility] [place] [address] lab before phleb - lab needs drawn day or so prior to 3rd /23/2025 3:30 PM [facility] Hematology/Oncology [address] [place] [address] [place] [address] Phlebotomy and lab (lab few days prior to 3rd phlebotomy)05/18/2025 8:30 AM EST [facility] [address] [id number] Ela Marquis, MOLECULAR BIOLOGIST.CRIB TENDER [address] [phone] MyChart 90 day check in05/24/2025 2:45 PM ESTOffice Visit [facility] [address] [place] [address] [place] [address] 3 month follow up with lab05/24/2025 3:00 PM ESTVisit (SP) Office Hematology/Oncology [address] [place] [address] [place] [address] Nathaly Saucedo APRN.CRIB TENDER [address] [facility] [facility] [place] [address] 3 month follow up with labNameTypePriorityAssociated DiagnosesOrder Schedule COMPLETE BLOOD COUNT AND DIFFERENTIALLabRoutine Hereditary hemochromatosis Expected: 06/01/2025 (Approximate), Expires: 08/31/2025OMPREHENSIVE METABOLIC PANELLabRoutine Hereditary hemochromatosis Expected: 06/01/2025 (Approximate), Expires: 08/31/2025FERRITINLabRoutine Hereditary hemochromatosis Expected: 06/01/2025 (Approximate), Expires: 08/31/2025IRON AND TIBCLabRoutine Hereditary hemochromatosis Expected: 06/01/2025 (Approximate), Expires: 08/31/2025documented as of this encounter Results * IRON AND TIBC (03/01/2025 2:38 PM EST)ComponentValueRef RangeTest Method Analysis TimePerformed AtPathologist QclntyojsTjyx96632 - 186 ug/dL03/02/2025 3:10 PM [facility] SMPHXHC743069 - 386 ug/dL03/02/2025 3:10 PM [facility] LABTransferrin Rpnnnzrlrm04.215.0 - 57.0 %03/02/2025 3:10 PM [facility] LABSpecimen (Source)Anatomical Location / LateralityCollection Method / VolumeCollection TimeReceived TimeBloodBLOOD SPECIMEN / UnknownVenipuncture / Krymdng6603/01/2025 2:38 PM EST03/01/2025 2:38 PM EST Narrative Authorizing ProviderResult TypeResult StatusAdarsh Brandon MDLABORATORY Final ResultPerforming OrganizationAddressCity/State/ZIP CodePhone Number [facility] [address] [place] [address], * (ABNORMAL) FERRITIN (03/01/2025 2:38 PM EST)ComponentValueRef RangeTest Method Analysis TimePerformed AtPathologist OqlfvwfntJibguppq962.0(H)14.7 - 205.1 ng/mL03/02/2025 3:22 PM [facility] LABSpecimen (Source) Anatomical Location / LateralityCollection Method / VolumeCollection Time Received TimeBloodBLOOD SPECIMEN / UnknownVenipuncture / Ldmytur7603/01/2025 2:38 PM EST03/01/2025 2:38 PM EST Narrative Authorizing ProviderResult TypeResult StatusAdars Brandon MDLABORATORY Final ResultPerforming OrganizationAddressty/State/ZIP CodePhone Number [facility] [address] [place] [address], * (ABNORMAL) COMPREHENSIVE METABOLIC PANEL (03/01/2025 2:38 PM EST)Component ValueRef RangeTest MethodAnalysis TimePerformed AtPathologist Signature Protein, Total6.36.3 - 8.0 g/dL03/01/2025 3:[address] [facility] LABAlbumin3.93.9 - 4.9 g/dL03/01/2025 3:03 PM [facility] LABCalcium, Total8.58.5 - 10.2 mg/dL03/01/2025 3:03 PM [facility] LABBilirubin, Total0.30.2 - 1.3 mg/dL 03/01/2025 3:03 PM [facility] LABAlkaline Cmsdoygdrsj6712 - 123 U/L105/01/2024 3:03 PM [facility] WZMTUI5596 - 35 U/L105/01/2024 3:03 PM [facility] RNZETZ156 - 38 U/L105/01/2024 3:03 PM [facility] FJMKlpwuoy303(H)74 - 99 mg/dL03/01/2025 3:03 PM [facility] LABComment: The [place] [employer] (ADA) provides guidance for cutoff values for fasting glucose andrandom glucose. The ADA defines fasting as no [...] Standards of Medical Care in Diabetes 2016, [place] [employer]. Diabetes Care. 2016.39(Suppl 1). LVF346 - 21 mg/dL03/01/2025 3:03 PM [facility] Creatinine0.710.58 - 0.96 mg/dL03/01/2025 3:03 PM [facility] HITOvnjzv780986 - 144 mmol/L105/01/2024 3:03 PM [facility] LABPotassium3.73.7 - 5.1 mmol/L105/01/2024 3:03 PM [facility] MBOTlhizsdd76662 - 107 mmol/L105/01/2024 3:03 PM EST [facility] AKJUN85784 - 30 mmol/L105/01/2024 3:03 PM EST [facility] LABAnion Gap6(L)8 - 15 mmol/L105/01/2024 3:03 PM [facility] LABEstimated Glomerular Filtration Rate 110>=60 mL/min/1.73m 03/01/2025 3:03 PM [facility] LABComment:Estimated Glomerular Filtration Rate (eGFR) is calculated using the 2020 CKD-EPI creatinine equation. This equation utilizes serum creatinine, sex, and age as parameters. The creatinine assay has traceable calibration to isotope dilution- mass spectrometry. Refer to KDIGO guidelines for clinical interpretation. In patients with unstable renal function, e.g. those with acute kidney injury, the eGFRmay not accurately reflect actual GFR.Specimen (Source)Anatomical Location / LateralityCollection Method / VolumeCollection TimeReceived TimeBloodBLOOD SPECIMEN / UnknownVenipuncture / Ldkagrz8403/01/2025 2:38 PM EST03/01/2025 2:38 PM EST Narrative Authorizing ProviderResult TypeResult StatusAdarsh Vennepureddy MDLABORATORY Final ResultPerforming OrganizationAddressCity/State/ZIP CodePhone Number [facility] [address] [place] [address] * COMPLETE BLOOD COUNT AND DIFFERENTIAL (03/01/2025 2:38 PM EST)ComponentValue Ref RangeTest MethodAnalysis TimePerformed AtPathologist SignatureWBC7.313.70 - 11.00 k/uL03/01/2025 2:40 PM ESTNORTSELECT SPECIALTY HOSPITAL LABRBC4.61 3.90 - 5.20 m/uL03/01/2025 2:40 PM [facility] Njgsfqzeyk82.011.5 - 15.5 g/dL03/01/2025 2:40 PM [facility] LLMOichxmyhfh89.736.0 - 46.0 %03/01/2025 2:40 PM [facility] HCKPEX87.180.0 - 100.0 fL11/ 2:40 PM ESTNORTSELECT SPECIALTY HOSPITAL ZCUVHD70.426.0 - 34.0 pg03/01/2025 2:40 PM EST [facility] YRHPGLL21.330.5 - 36.0 g/dL03/01/2025 2:40 PM [facility] LABRDW-CV11.911.5 - 15.0 %03/01/2025 2:40 PM ESTTE[facility] LABPlatelet Usyvg804720 - 400 k/uL03/01/2025 2:[address] [facility] LABMPV9.29.0 - 12.7 fL03/01/2025 2:40 PM [facility] LABNeutrophils %55.2%03/01/2025 2:40 PM [facility] LABAbs Neut4.04 1.45 - 7.50 k/uL03/01/2025 2:40 PM [facility] LAB Lymphocytes %36.3%03/01/2025 2:40 PM [facility] LAB Abs Lymph2.651.00 - 4.00 k/uL03/01/2025 2:40 PM [facility] LABMonocytes %5.3%03/01/2025 2:40 PM [facility] LABAbs Mono0.39<0.87 k/uL03/01/2025 2:40 PM [facility] LABEosinophils %2.5%03/01/2025 2:40 PM [facility] LABAbs Eosin0.18<0.46 k/uL03/01/2025 2:40 PM [facility] LABBasophils %0.4%03/01/2025 2:40 PM [facility] LABAbs Baso0.03<0.11 k/uL03/01/2025 2:40 PM EST [facility] LABImmature Granulocytes %0.3%03/01/2025 2:40 PM ESTNORTSELECT [facility] LABAbs Immature Gran<0.03<0.10 k/uL03/01/2025 2:40 PM [facility] LABNRBC0.0/100 WBC 03/01/2025 2:40 PM [facility] LABAbsolute nRBC<0.01 <0.01 k/uL03/01/2025 2:40 PM ESTNORTSELECT [facility] LABDiff Type Auto03/01/2025 2:40 PM [facility] LABSpecimen (Source)Anatomical Location / LateralityCollection Method / VolumeCollection TimeReceived TimeBloodBLOOD SPECIMEN / UnknownVenipuncture / Ncdnbyp8503/01/2025 2:38 PM EST03/01/2025 2:38 PM EST Narrative Authorizing ProviderResult TypeResult StatusAdarsh Vennepureddy MDLABORATORY Final ResultPerforming OrganizationAddressCity/State/ZIP CodePhone Number [facility] [address] [place] [address] documented in this encounter Visit Diagnoses Diagnosis Hereditary hemochromatosis- Primary documented in this encounter Care Teams Team MemberRelationshipSpecialtyStart DateEnd Date Mariya Grossman MD [address] [place] [id number] PCP - GeneralFamily Medicine05/12/16documented as of this encounter
--- OUTSIDE RECORDS SUMMARY | 2025-03-06 10:30 | XMS_ITS | Encounter Summary ---
Author Organization [facility] Address [address] [place] [address] Care Team Providers Care Radiotelegraphist Name Role Phone Mariya Grossman MD Primary Care Provider [phone] Reason for Visit * ReasonCommentsColposcopy Encounter Details DateTypeDepartmentCare Team (Latest Contact Info)Lpqhpepkcfp83/25/2025 10:30 AM ESTProcedure Visit [facility] [address] [place] [phone] Sean Garza, [address] [place] [address] ASCUS with positive high risk HPV cervical; Colposcopy needed after cervical smear Social History Tobacco UseTypesPacks/DayYears UsedDateSmoking Tobacco: FormerCigarettesQuit: 04/12/2014Smokeless Tobacco: NeverAlcohol UseStandard Drinks/WeekCommentsNot Currently0 (1 standard drink = 0.6 oz pure alcohol)Caffeine intake: 4-5 coffee [id number] Health LiteracyAnswerDate RecordedHow often do you need to have someone help you when you read instructions, pamphlets, or other written material from your doctor or pharmacy?Never02/07/2024Humiliation, Afraid, Rape, and Kick questionnaireAnswerDate RecordedWithin the last year, have you been afraid of your partner or ex-partner?No11/13/2022Within the last year, have you been humiliated or emotionally abused in other ways by your partner or ex-partner?No11/13/2022Within the last year, have you been kicked, hit, slapped, or otherwise physically hurt by your partner or ex-partner?No11/13/2022Within the last year, have you been raped or forced to have any kind of sexual activity by your partner or ex-partner?11/13/2022Social Connection and Isolation Panel AnswerDate RecordedIn a typical week, how many times do you talk on the phone with family, friends, or neighbors?Three times a week02/07/2024How often do you get together with friends or relatives?Once a week02/07/2024How often do you attend christian or advent services?More than 4 times per year02/07/2024o you belong to any clubs or organizations such as christian groups, unions, fraToplist or athletic groups, or school groups?No02/07/2024How often do you attend meetings of the clubs or organizations you belong to?Never02/07/2024re you , , , , never , or living with a partner? 02/07/2024UDIT-CAnswerDate RecordedQ1: How often do you have a drink containing alcohol?Never02/07/2024Q2: How many drinks containing alcohol do you have on a typical day when you are drinking?Patient does not drink02/07/2024Q3: How often do you have six or more drinks on one occasion?Never02/07/2024Overall Financial Resource Strain (CARDIA)AnswerDate RecordedHow hard is it for you to pay for the very basics like food, housing, medical care, and heating?Not hard at all 02/07/2024[facility] [place] [facility] Occup[facility] - Occupational Stress QuestionnaireAnswerDate RecordedDo you feel stress - tense, restless, nervous, or anxious, or unable to sleep at night because yourmind is troubled all the time - these days?Not at all02/07/2024Exercise Vital SignAnswerDate RecordedOn average, how many days per week do you engage in moderate to strenuous exercise (like a brisk walk)?0 days02/07/2024On average, how many minutes do you engage in exercise at this level?0 min02/07/2024Hunger Vital SignAnswerDate Recorded Within the past 12 months, you worried that your food would run out before you got the money to buymore.Never true02/07/2024Within the past 12 months, the food you bought just didn't last and you didn't have money to get more.Never true 02/07/2024RAPARE - TransportationAnswerDate RecordedIn the past 12 months, has lack of transportation kept you from medical appointments or from getting medications?No02/07/2024In the past 12 months, has lack of transportation kept you from meetings, work, or from getting things needed for daily living?No 02/07/2024Housing Stability Vital SignAnswerDate RecordedIn the last 12 months, was there a time when you were not able to pay the mortgage or rent on time?No 11/13/2022In the last 12 months, how many places have you lived?In the last 12 months, was there a time when you did not have a steady place to sleep or slept in universal health services (including now)?No11/13/2022Housing Stability Vital SignAnswerDate RecordedIn the last 12 months, was there a time when you were not able to pay the mortgage or rent on time?No02/07/2024In the past 12 months, how many times have you moved where you were living?t any time in the past 12 months, were you homeless or living in a mcfp (including now)?No 02/07/2024CommentsNoSex and Gender InformationValueDate RecordedSex Assigned at BirthNot on fileLegal YbaMvkqem44/15/2023 6:37 PM EDTGender Identity Not on fileSexual OrientationNot on filedocumented as of this encounter Last Filed Vital Signs Vital SignReadingTime TakenCommentsBlood Wfopnijt362/6803/06/2025 10:54 AM EST Pulse--Temperature--Respiratory Rate--Oxygen Saturation--Inhaled Oxygen Concentration--Gyipgi63.5 kg (151 lb)03/06/2025 10:54 AM ESTHeight--Body Mass Index23.6501/22/2025 4:03 PM EDTdocumented in this encounter Progress Notes * Swathi Sosa LPN - 03/06/2025 10:30 AM ESTAssociated Order(s): Colposcopy Post-Procedure Diagnose(s): ASCUS with positive high risk HPV cervical Reason for Appointment: Patient ID: Germaine Burr is a 39 y.o. female who presents for Colposcopy Patient presents today for a Colposcopy appointment. MEDICATIONS Current Outpatient Medications Medication Instructions L norgest/e.estradiol-e.estrad (Seasonique) 0.15-0.03 &0.01 MG tablet tablet 1 tablet, Oral, Every morning Multiple Vitamin (MULTI VITAMIN PO) Take by mouth phentermine (ADIPEX-P) 37.5 mg, Daily RT Probiotic Product (PRO-BIOTIC BLEND PO) Take by mouth Tirzepatide-Weight Management 12.5 MG/0.5ML solution auto-injector ALLERGIES No Known Allergies PROBLEMS Active Ambulatory Problems Diagnosis Date Noted [...] infection HISTORY PAST MEDICAL HISTORY SOCIAL HISTORY Past Medical History: Diagnosis Date Acquired hypothyroidism 11/11/2022 Anxiety 01/13/2022 Chronic back pain 01/12/2022 H/O gastric sleeve 11/11/2022 Insulin resistance 01/13/2022 Intractable chronic migraine without aura and without status migrainosus 11/11/2022 Migraine Mild obstructive sleep apnea 01/13/2022 Morbid obesity ([facility]) 01/12/2022 Last Assessment & Plan: The patient [...] Types: Cigarettes Quit date: 04/12/2014 Years since quittin.9 Smokeless tobacco: Never Vaping Use Vaping status: Never Used Substance Use Topics Alcohol use: Not Currently Comment: Caffeine intake: 4-5 coffee daily Drug use: Never FAMILY HISTORY Family History Problem Relation Name Age of Onset Hepatitis Mother Heart disease Father [place] Hypertension Father [place] Diabetes Maternal Grandmother Lindsey puneet Hypertension Maternal Grandmother Lindsey puneet Cancer Maternal Grandmother Lindsey puneet Kidney disease Maternal Grandmother Lindsey puneet Diabetes Maternal Grandfather Bernardo weston Hypertension Maternal Grandfather Bernardo weston Cancer Maternal Grandfather Bernardo weston Diabetes Paternal Grandmother Lindsey [place]une[place] Hypertension Paternal Grandmother Lindsey [place] Diabetes Paternal Grandfather Hypertension Paternal Grandfather SURGICAL HISTORY Past Surgical History: Procedure Laterality Date CHOLECYSTECTOMY 2013 GALL BLADDER 06/2013 SLEEVE GASTROPLASTY 12/17/2016 REVIEW OF SYSTEMS Review of Systems: Review of Systems Constitutional: Negative. HENT: Negative. Eyes: Negative. Respiratory: Negative. Cardiovascular: Negative. Gastrointestinal: Negative. Genitourinary: Negative. Musculoskeletal: Negative. Skin: Negative. Neurological: Negative. All other systems reviewed and are negative. Hematological: Negative. Endocrine: Negative. Allergic/Immunologic: Negative. OBJECTIVE Objective: Physical Exam Constitutional: Appearance: Normal appearance. She is well-developed. Genitourinary: Vulva normal. Cardiovascular: Rate and Rhythm: Normal rate and [...] nursing note reviewed. Exam conducted with a pricer present. Vitals: Estimated body mass index is 23.65 kg/m?? as calculated from the following: Height as of 01/22/25: 5' 7 . Weight as of this encounter: 151 lb. BP: 108/68 No LMP recorded. (Menstrual status: Oral Contraception). ASSESSMENT & PLAN Encounter Diagnosis: ICD-10-CM 1. ASCUS with positive high risk HPV cervical R87.610 POCT , urine manually resulted R87.810 Colposcopy 2. Colposcopy needed after cervical smear R87.619 POCT , urine manually resulted Colposcopy Colposcopy Date/Time: 03/06/2025 11:17 AM Performed by: Sean Garza DO Authorized by: Sean Garza DO Consent: Patient questions answered: yes Risks and benefits of the procedure and its alternatives discussed: yes Procedural risks discussed: Bleeding and infection Consent obtained: Written Indication: Other indication(s): clinical abnormality Pre-procedure: Speculum was placed in the vagina: yes Prep solution(s): acetic acid Procedure: Colposcopy with: endocervical curettage Cervix visibility: fully visualized Post-procedure: Patient tolerance of procedure: Patient tolerated the procedure well with no immediate complications Instructions and paperwork completed: yes Comments: Colposcopy: Patient is doing well and has no complaints. Pap results have been reviewed with the patient in great detail and patient voiced understanding. Patient presents today for a Colposcopy with ECC. Patient was placed in dorsal lithotomy position with feet in stirrups, a sterile speculum was placed into the vagina and the cervix was visualized. Cervix was cleansed with vinegar. Postprocedural instructions given. All if patients questions answered and she expressed understanding. Advised to call in interim with questions or concerns. Follow Up: Patient is to return in 6 months for Repeat Pap. Assessment/Plan Documented by Swathi Sosa LPN on behalf of: Sean Garza DO documented in this encounter Plan of Treatment DateTypeDepartmentCare Team (Latest Contact Info)Yqlmnhhawok42/15/2025 5:00 PM ESTTelemedicine [facility] [address] [place] [address] Jenny Smith, PSYCHIATRIC [address] [place] [address] 04/16/2025 4:00 PM ESTProcedure Visit [facility] [place] [phone] Sean Garza, [address] [place] [address] 08/01/2025 3:50 PM EDTProcedure Visit [facility] [address] [place] [address] [place] [phone] Sean Garza, [address] [place] [address] NameTypePriorityAssociated DiagnosesOrder ScheduleColposcopyProceduresRoutine ASCUS with positive high risk HPV cervical Colposcopy needed after cervical smear Expected: 03/06/2025 (Approximate), Expires: 03/06/2026documented as of this encounter Procedures Procedure NamePriorityDate/TimeAssociated DiagnosisCommentsCOLPOSCOPYRoutine 03/06/2025 11:17 AM EST ASCUS with positive high risk HPV cervical POCT , VTHLAJsukjem68/25/2025 11:00 AM EST ASCUS with positive high risk HPV cervical Colposcopy needed after cervical smear documented in this encounter Results * Colposcopy (03/06/2025 11:17 AM EST) Swathi Russell LPN - 03/06/2025 11:17 AM EST Swatih Sosa LPN 03/07/2025 10:59 AM Colposcopy Date/Time: 03/06/2025 11:17 AM Performed by: Sean Garza DO Authorized by: Sean Garza DO ?? Consent: ??Patient questions answered: yes ?Risks and benefits of the procedure and its alternatives discussed: yes ?Procedural risks discussed: ??Bleeding and infection ??Consent obtained: ??Written Indication: ??Other indication(s): clinical abnormality ?? Pre-procedure: ??Speculum was placed in the vagina: yes ?Prep solution(s): acetic acid ?? Procedure: ??Colposcopy with: endocervical curettage ?Cervix visibility: fully visualized ?? Post-procedure: ??Patient tolerance of procedure: ??Patient tolerated the procedure well with no immediate complications ??Instructions and paperwork completed: yes ?? Comments: ?? Colposcopy: Patient is doing well and has no complaints. Pap results have been reviewed with the patient in great detail and patient voiced understanding. Patient presents today for a Colposcopy with ECC. Patient was placed in dorsal lithotomy position with feet in stirrups, a sterile speculum was placed into the vagina and the cervix was visualized. Cervix was cleansed with vinegar. Postprocedural instructions given. All if patients questions answered and she expressed understanding. Advised to call in interim with questions or concerns. Follow Up: Patient is to return in 6 months for Repeat Pap. 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
--- OUTSIDE RECORDS SUMMARY | 2025-03-06 15:45 | XMS_ITS | Encounter Summary ---
Author Organization [facility] Address [address] [place] [address] Care Team Providers Care Vending Machine Operator Name Role Phone Mariya Grossman MD Primary Care Provider [phone] Source Comments In the event this information is protected by the Federal Confidentiality of Alcohol and Drug AbusePatient Records regulations: The Federal rules restrict any use of the information to criminally investigate or prosecute any alcohol or drug abuse patient.[facility] Encounter Details DateTypeDepartmentCare Team (Latest Contact Info)Muadklnifub25/25/2025 3:[address] [facility] Hematology/Oncology [address] [place] [address] [place] [address] Hereditary hemochromatosis (Primary Dx) Social History Tobacco UseTypesPacks/DayYears UsedDateSmoking Tobacco: BlwvkaHjwnoykqpm517 04/12/2000 - 04/12/2014Smokeless Tobacco: NeverAlcohol UseStandard Drinks/Week CommentsNo0 (1 standard drink = 0.6 oz pure alcohol)PHQ-2AnswerDate RecordedPHQ- 2 cwcol479/20/2025Area Deprivation IndexAnswerDate RecordedNational Score (1- 100), lower number is lower [id number] Score (1-10), lower number is lower [id number] from: https://www.neighborhoodatlas.medicine.[facility].edu/. Last address used for [address]CommentsNoSex and Gender Information ValueDate RecordedSex Assigned at BirthNot on fileLegal IsyCabxix48/24/2017 4:07 PM ESTGender IdentityNot on fileSexual OrientationNot on filedocumented as of this encounter Last Filed Vital Signs Vital SignReadingTime TakenCommentsBlood Ootvfltw929/8203/06/2025 4:10 PM EST Qwysy131803/06/2025 4:10 PM VJUCqzjqatvqgl65.9 ??C (98.4 ??F)03/06/2025 3:30 PM ESTRespiratory Yosf161505/06/2024 4:10 PM ESTOxygen Saturation--Inhaled Oxygen Concentration--Weight--Height--Body Mass Index--documented in this encounter Functional Status * Are you deaf or do you have serious difficulty hearing?AnswerDate of XjerytqturZkdvgpNa70/08/2017 1:49 PM Elayne Nunez APRN.DAIRY QUALITY ASSURANCE OFFICER * Are you blind or do you have serious difficulty seeing, even when wearing glasses?AnswerDate of GebegjpvyvGaqvbyOn30/08/2017 1:49 PM Elayne Nunez APRN.DAIRY QUALITY ASSURANCE OFFICER * Do you have serious difficulty walking or climbing stairs?AnswerDate of GzshxkawfbEfdhhjVv58/08/2017 1:49 PM Elayne Nunez APRN.DAIRY QUALITY ASSURANCE OFFICER * Do you have difficulty dressing or bathing?AnswerDate of AssessmentAuthorNo 12/18/2016 1:49 PM Elayne Nunez APRN.DAIRY QUALITY ASSURANCE OFFICER * Because of a physical, mental, or emotional condition, do you have difficulty doing errands alone such as visiting a doctor's office or shopping?AnswerDate of HlrggscdwpDlejcmWk31/08/2017 1:49 PM Elayne Nunez APRN.DAIRY QUALITY ASSURANCE OFFICER documented as of this encounter Mental Status * Because of a physical, mental, or emotional condition, do you have serious difficulty concentrating, remembering, or making decisions?AnswerEntry Date CtwmfbFq83/08/2017 1:49 PM Elayne Nunez APRN.DAIRY QUALITY ASSURANCE OFFICER documented in this encounter Plan of Treatment DateTypeDepartmentCare Team (Latest Contact Info)Mfncayhlppd23/09/2025 3:15 PM ESTOffice Visit [facility] [address] [place] [address] Phlebotomy and lab - q 2 weeks for 3 per siurefr8903/20/2025 3:30 PM [facility] Hematology/Oncology [address] [facility] [place] [address] Phlebotomy and lab - q 2 weeks for 3 per yzjzroi0103/29/2025 2:30 PM ESTOffice Visit [facility] [address] [facility] [place] [address] lab before phleb - lab needs drawn day or so prior to 3rd gvuyrgjfmq97/23/2025 3:30 PM [facility] Hematology/Oncology [address] [place] [address] [place] [address] Phlebotomy and lab (lab few days prior to 3rd phlebotomy)05/18/2025 8:30 AM [facility] [address] [place] [address] Ela Marquis APRN.DAIRY QUALITY ASSURANCE OFFICER [address] [place] [address] MyChart 90 day check in05/24/2025 2:45 PM ESTOffice Visit [facility] [address] [facility] [place] [address] 3 month follow up with lab05/24/2025 3:00 PM ESTVisit (SP) Office Hematology/Oncology [address] [facility] [place] [address] Nathaly Saucedo APRN.DAIRY QUALITY ASSURANCE OFFICER [address] [facility] [place] [address] 3 month follow up with labdocumented as of this encounter Visit Diagnoses Diagnosis Hereditary hemochromatosis- Primary documented in this encounter Care Teams Team MemberRelationshipSpecialtyStart DateEnd Date Mariya Grossman MD [address] [place] [address] PCP - GeneralFamily Medicine05/12/16documented as of this encounter
--- OUTSIDE RECORDS SUMMARY | 2025-03-12 17:00 | XMS_ITS | Encounter Summary ---
Author Organization [facility] Address [address] [place] [address] Care Team Providers Care Automotive Heavy Mechanic Name Role Phone Mariya Grossman MD Primary Care Provider [phone] Reason for Visit * ReasonCommentsFollow-up Encounter Details DateTypeDepartmentCare Team (Latest Contact Info)Xikkciezedz62/01/2025 5:00 PM ESTSocial Work [facility] [address] [facility] [address] [place] [phone] Jenny Smith, [facility] [address] [facility] [address] [place] [address] Adjustment disorder with mixed anxiety and depressed mood; Marital problems Social History Tobacco UseTypesPacks/DayYears UsedDateSmoking Tobacco: FormerCigarettesQuit: 04/12/2014Smokeless Tobacco: NeverAlcohol UseStandard Drinks/WeekCommentsNot Currently0 (1 standard drink = 0.6 oz pure alcohol)Caffeine intake: 4-5 coffee [id number] Health LiteracyAnswerDate RecordedHow often do you need [...] relatives?Once a week02/07/2024How often do you attend zoroastrian or baptist services?More than 4 times per year02/07/2024o you belong to any clubs or organizations such as zoroastrian groups, unions, fraThrive Metrics or athletic groups, or school groups?No02/07/2024How often [...] medical care, and heating?Not hard at all 02/07/2024[facility] [place] [facility] Occupational Health - Occupational Stress QuestionnaireAnswerDate [...] steady place to sleep or slept in hamerelter (including now)?No11/13/2022Housing Stability Vital SignAnswerDate RecordedIn the last 12 months, was there a time when you were not able to pay the mortgage or rent on time?No02/07/2024In the past 12 months, how many times have you moved where you were living?t any time in the past 12 months, were you homeless or living in a chcf (including now)?No 02/07/2024CommentsNoSex and Gender InformationValueDate RecordedSex Assigned at BirthNot on fileLegal WzcJtrctu92/15/2023 6:37 PM EDTGender Identity Not on fileSexual OrientationNot on filedocumented as of this encounter Plan of Treatment DateTypeDepartmentCare Team (Latest Contact Info)Xsophafochf54/15/2025 5:00 PM ESTTelemedicine [facility] [address] [place] [address] Jenny Smith, [facility] [address] [place] [address] 04/16/2025 4:00 PM ESTProcedure Visit [facility] [address] [place] [address] [place] [phone] Sean Garza, DO [address] [facility] [place] [address] 08/01/2025 3:50 PM EDTProcedure Visit [facility] [address] [place] [address] [place] [phone] Sean Garza, DO [address] [facility] [place] [address] documented as of this encounter Visit Diagnoses Diagnosis Adjustment disorder with mixed anxiety and depressed mood Marital problems Counseling for marital and partner problems, unspecified documented in this encounter Care Teams Team MemberRelationshipSpecialtyStart DateEnd Date Mariya Grossman MD [address] [facility] [place] [address] PCP - GeneralFamily Medicine11/11/22documented as of this encounter
--- OUTSIDE RECORDS SUMMARY | 2025-03-14 13:37 | XMS_ITS | Encounter Summary ---
Author Organization [facility] Healthcare Address [address] [place] [address] Care Team Providers Care Superintendent Drivers Name Role Phone Mariya Grossman MD Primary Care Provider [phone] Encounter Details DateTypeDepartmentCare Team (Latest Contact Info)Fnpwhjermpy46/01/2025Travel Social History Tobacco UseTypesPacks/DayYears UsedDateSmoking Tobacco: FormerCigarettesQuit: 04/12/2014Smokeless Tobacco: NeverAlcohol UseStandard Drinks/WeekCommentsNot Currently0 (1 standard drink = 0.6 oz pure alcohol)Caffeine intake: 4-5 coffee eyryiE0918 Health LiteracyAnswerDate RecordedHow often do you need [...] of sexual activity by your partner or ex-partner?No11/13/2022Social Connection and Isolation Panel AnswerDate RecordedIn a typical week, how many times do you talk on the phone with family, friends, or neighbors?Three times a week02/07/2024How often do you get together with friends or relatives?Once a week02/07/2024How often do you attend zoroastrian or denominational services?More than 4 times per year02/07/2024o you belong to any clubs or organizations such as zoroastrian groups, unions, fraternal or athletic groups, or school groups?No02/07/2024How often [...] medical care, and heating?Not hard at all 02/07/2024[facility] [place] [facility] - Occupational Stress QuestionnaireAnswerDate [...] steady place to sleep or slept in ashelter (including now)?No11/13/2022Housing Stability Vital SignAnswerDate RecordedIn the last 12 months, was there a time when you were not able to pay the mortgage or rent on time?No02/07/2024In the past 12 months, how many times have you moved where you were living?t any time in the past 12 months, were you homeless or living in a assisted (including now)?No 02/07/2024CommentsNoSex and Gender InformationValueDate RecordedSex Assigned at BirthNot on fileLegal HtlZicqrq85/15/2023 6:37 PM EDTGender Identity Not on fileSexual OrientationNot on filedocumented as of this encounter Plan of Treatment DateTypeDepartmentCare Team (Latest Contact Info)Axlrrehfoyx22/15/2025 5:00 PM ESTTelemedicine [facility] [address] [place] [phone] Jenny Smith, [facility] [address] [place] [address] 04/16/2025 4:00 PM ESTProcedure Visit ELSA VALLEJO [address] [address] Sean Garza DO [address] [place] [address] 08/01/2025 3:50 PM EDTProcedure Visit [facility] José VALLEJO [address] [phone] Sean Garza DO [address] [place] [address] documented as of this encounter Visit Diagnoses Not on filedocumented in this encounter Care Teams Team MemberRelationshipSpecialtyStart DateEnd Date Mariya Grossman MD [address] [place] [address] PCP - GeneralFamily Medicine11/11/22documented as of this encounter
--- OUTSIDE RECORDS SUMMARY | 2025-03-14 13:37 | XMS_ITS | Clinical Summary ---
Author Organization [facility] Address [id number] [address] [place] [address] Care Team Providers Care Loader Machine Name Role Phone Mariya Grossman MD Primary Care Provider [phone] Medications MedicationSigDispense QuantityRefillsLast FilledStart DateEnd DateStatus no115/iron/folic acid ( 19 ORAL) Take 1 tablet by mouth daily.Active L norgest/e.estradioL-e.estrad (AMETHIA) 0.15 mg-30 mcg (84)/10 mcg (7) tablets,dose pack,3 month Take 1 tablet by mouth daily.Active ondansetron ODT (ZOFRAN-ODT) 4 mg disintegrating tablet Dissolve 4 mg on tongue every 6 (six) hours as needed for nausea or vomiting. Active promethazine (PHENERGAN) 12.5 mg tablet Take 12.5 mg by mouth every 6 (six) hours as needed for nausea or vomiting. Active loratadine (CLARITIN) 10 mg tablet Take 10 mg by mouth daily.Active famotidine (PEPCID) 20 mg tablet Take 20 mg by mouth daily.Active aspirin 81 mg chewable tablet Chew 81 mg and swallow daily.Active Encounters DateTypeDepartmentCare ZtrpRzrzghpfwho04/09/2025 1:00 PM EDTNurse Injection [facility] [address] [place] [id number] Need for immunization against influenza (Primary Dx)from Last 3 Months Immunizations ImmunizationAdministration DatesNext DueInfluenza, Im Flucelvax (Pf)01/18/2025 Family History Medical HistoryRelationNameCommentsDiabetesDaughterHeart diseaseFather HypertensionFatherCancerMaternal GrandfatherDiabetesMaternal Grandfather HypertensionMaternal GrandfatherHepatitisMotherHeart diseasePaternal Grandfather HypertensionPaternal GrandfatherDiabetesPaternal GrandmotherKidney disease Paternal GrandmotherOsteoporosisPaternal GrandmotherRelationNameStatusComments DaughterFatherMaternal GrandfatherDeceasedMotherPaternal GrandfatherDeceased Paternal GrandmotherDeceased Social History Tobacco UseTypesPacks/DayYears UsedDateSmoking Tobacco: Never Assessed Tobacco Cessation:Counseling Given: Yes ChildcareAnswerDate FxgcttoyLicpjkijlGapicqc92/12/2019EmploymentAnswerDate QzavbwioYiuletgppnUccmyue52/12/2019Purpose - LifeAnswerDate RecordedPurpose and direction in tmyfOgyaljs72/11/2021CommentsNoSex and Gender Information ValueDate RecordedSex Assigned at BirthNot on fileLegal CxvEeobzr52/06/2015 12:06 PM EDTGender IdentityNot on fileSexual OrientationNot on file Last Filed Vital Signs Vital SignReadingTime TakenCommentsBlood Pressure--Pulse--Temperature-- Respiratory Rate--Oxygen Saturation--Inhaled Oxygen Concentration--Rhwpku894.9 kg (266 lb 8.6 oz)06/19/2020 11:25 AM OHCFhvxsv409.8 cm (5' 10 )06/19/2020 11:27 AM ESTBody Mass Index38.24006/19/2020 11:25 AM EST Plan of Treatment Health MaintenanceDue DateLast DoneCommentsDepression Ftpnubzyq13/11/1997Tobacco Iwimerswh22/11/1997Adult BMI Ydqzoypbx19/11/2003Pap Smear502/, 04/23/2020OVID-19 Vaccine (3 - 2024- season)5004/21/2021, 10/23/2020 DTaP,Tdap and Td Vaccines (3 - Td or Tdap), 01/03/2003 Influenza SxlngjnYhahdkmhb65/09/2025, 01/19/2022, 03/18/2021, Additional history exists Medical Devices Not on file Procedures Procedure NamePriorityDate/TimeAssociated DiagnosisCommentsHIGH RISK HPV W/ABNER Borictr2204/23/2020 from Last 3 Months or Most Recently Relevant to Health Maintenance Results * High risk HPV w/abner (04/23/2020)ComponentValueRef RangeTest MethodAnalysis TimePerformed AtPathologist SignatureOther High Risk HpvNEGATIVEMANUALLY TRANSCRIBED RESULTSComment:SEE ATTACHED REPORT Narrative Authorizing ProviderResult TypeResult StatusNot In System Ref ProvLAB BLOOD ORDERABLESEdited Result - FinalPerforming OrganizationAddressCity/State/ZIP Code Phone Number MANUALLY TRANSCRIBED RESULTS from Last 3 Months or Most Recently Relevant to Health Maintenance Insurance Care Teams Team MemberRelationshipSpecialtyStart DateEnd Mariya Grossman MD [address] [place] [address] [facility]o27[facility]28[facility]
--- OUTSIDE RECORDS SUMMARY | 2025-03-14 13:37 | XMS_ITS | Encounter Summary ---
Author Organization [facility] Address [address] [place] [address] Care Team Providers Care Photographer News Name Role Phone Mariya Grossman MD Primary Care Provider [phone] Source Comments In the event this information is protected by the Federal Confidentiality of Alcohol and Drug AbusePatient Records regulations: The Federal rules restrict any use of the information to criminally investigate or prosecute any alcohol or drug abuse patient.[facility] Encounter Details DateTypeDepartmentCare Team (Latest Contact Info)Efjfumhlztz41/20/2025Travel Social History Tobacco UseTypesPacks/DayYears UsedDateSmoking Tobacco: BpltbdBkjodyvmvl265 04/12/2000 - 04/12/2014Smokeless Tobacco: NeverAlcohol UseStandard Drinks/Week CommentsNo0 (1 standard drink = 0.6 oz pure alcohol)PHQ-2AnswerDate RecordedPHQ- 2 lnbba566/20/2025Area Deprivation IndexAnswerDate RecordedNational Score (1- 100), lower number is lower mclc585610/28/2022State Score (1-10), lower number is lower zvtg3883Data from: https://www.neighborhoodatlas.medicine.[facility]/. Last address used for [address]CommentsNoSex and Gender Information ValueDate RecordedSex Assigned at BirthNot on fileLegal ByxXzlwuv39/24/2017 4:07 PM ESTGender IdentityNot on fileSexual OrientationNot on filedocumented as of this encounter Functional Status * Are you deaf or do you have serious difficulty hearing?AnswerDate of HbcytxvgzcEwjbnwNl10/08/2017 1:49 PM Elayne Nunez APRN.IRONWORKER APPRENTICE * Are you blind or do you have serious difficulty seeing, even when wearing glasses?AnswerDate of XevgbnojeeZtbfpnEe37/08/2017 1:49 PM Elayne Nunez APRN.IRONWORKER APPRENTICE * Do you have serious difficulty walking or climbing stairs?AnswerDate of AnztkdgezqLtjxdrDg91/08/2017 1:49 PM Elayne Nunez APRN.IRONWORKER APPRENTICE * Do you have difficulty dressing or bathing?AnswerDate of AssessmentAuthorNo 12/18/2016 1:49 PM Elayne Nunez APRN.IRONWORKER APPRENTICE * Because of a physical, mental, or emotional condition, do you have difficulty doing errands alone such as visiting a doctor's office or shopping?AnswerDate of RxiewgofdgZnawpaWk44/08/2017 1:49 PM Elayne Nunez APRN.IRONWORKER APPRENTICE documented as of this encounter Mental Status * Because of a physical, mental, or emotional condition, do you have serious difficulty concentrating, remembering, or making decisions?AnswerEntry Date YziacrKm17/08/2017 1:49 PM Elayne Nunez APRN.IRONWORKER APPRENTICE documented in this encounter Plan of Treatment DateTypeDepartmentCare Team (Latest Contact Info)Wbbjqhaiumi61/09/2025 3:15 PM ESTOffice Visit [facility] [address] [place] [address] Phlebotomy and lab - q 2 weeks for 3 per kyxszwo7803/20/2025 3:30 PM ESTInfnov[facility]On[facility] [address] [place] [address] Phlebotomy and lab - q 2 weeks for 3 per ppslatf5903/29/2025 2:30 PM ESTOffice Visit [facility] [address] [place] [address] lab before phleb - lab needs drawn day or so prior to 3rd nvxqrryxaf03/23/2025 3:30 PM [facility] Hematology/Oncology [address] [place] [address] [place] [address] Phlebotomy and lab (lab few days prior to 3rd phlebotomy)05/18/2025 8:30 AM [facility] Surgery [address] [id number] Ela Marquis, IRON BENDER.IRONWORKER APPRENTICE [address] [place] [address] MyChart 90 day check in05/24/2025 2:45 PM ESTOffice Visit [facility] [address] [place] [address] [place] [address] 3 month follow up with lab05/24/2025 3:00 PM ESTVisit (SP) Office Hematology/Oncology [address] [place] [address] [place] [address] Nahtaly Saucedo, IRON BENDER.IRONWORKER APPRENTICE [address] [place] [address] 3 month follow up with labdocumented as of this encounter Visit Diagnoses Not on filedocumented in this encounter Care Teams Team MemberRelationshipSpecialtyStart DateEnd Date Mariya Grossman MD [address] [place] [address] PCP - GeneralFamily Medicine05/12/16documented as of this encounter
--- OUTSIDE RECORDS SUMMARY | 2025-03-14 13:37 | XMS_ITS | Clinical Summary ---
Author Organization [facility] Address [address] [place] [address] Care Team Providers Care Top Loader Name Role Phone Mariya Grossman MD Primary Care Provider [phone] Allergies No known active allergies Medications * This document contains information received from the source organization and may not represent a complete record from that organization. MedicationSigDispense QuantityRefillsLast FilledStart DateEnd DateStatus L-NORGEST/E.ESTRADIOL-E.ESTRAD (AMETHIA ORAL) Take 1 tablet by mouth once daily.Active MULTIVITAMIN ORAL Take by mouth.Active Lactobacillus acidophilus (PROBIOTIC ORAL) Take by mouth.Active multivit-min/iron/folic/nco468 (HAIR, SKIN AND NAILS ADVANCED ORAL) Take by mouth.Active calcium polycarbophil (FIBERCON ORAL) Take by mouth.Active omeprazole (PRILOSEC) 20 mg capsule Take 1 capsule by mouth once daily. 30 capsule 4Active Phentermine HCl 37.5 mg tablet Indications:History of obesityTake 1 tablet by mouth once daily for 90 days. 30 tablet /5Active ondansetron orally disintegrating (ZOFRAN ODT) 4 mg disintegrating tablet Take 1 tablet by mouth every 8 hours as needed for nausea/vomiting. 10 tablet 5Active tirzepatide (MOUNJARO) 12.5 mg/0.5 mL pen injector Indications:History of sleeve gastrectomyInject 12.5 mg subcutaneously one time a week. 2 mL /6Active Active Problems ProblemNoted DateDiagnosed DateHereditary vmlorggjarjpgpu31/26/2024cquired voeelcqmuscpip86Intractable chronic migraine without aura and without status baqedejoavw48nxietyInsulin resistance xvgrxeuo61Mild obstructive sleep apnea01/13/2022 02/02/2023hronic dufjmfx07hronic back pain01/12/2022 02/02/2023hronic joint painidney ofucim4101/12/2022 02/02/2023ersonal history of nicotine ymvfwuxuvn17 Streptococcus B carrier state complicating gafqcpjkni93 Gestational diabetes mellitus in , unspecified ipasifi4310/07/2020 02/02/2023History of yyhrtuvkpmlyahv66orsalgia, unspecified S/P laparoscopic sleeve enctxtulfhj90/07/2017PCOS (polycystic ovarian syndrome)08/07/2016 Resolved Problems ProblemNoted DateDiagnosed DateResolved DatePersonal history of urinary calculi Encounters DateTypeDepartmentCare IhmuHnkmwdnvyks12/03/2025Orders Only Hematology/Oncology [address] [place] [address] [place] [address] Titus Taylor MD Hereditary hemochromatosis (Primary Dx)03/09/2025MC Get Medical Advice Hematology/Oncology [address] [place] [address] [place] [address] Titus Taylor MD [place] QLRQPY3203/06/2025 3:45 PM ESTInfusion Center Hematology/Oncology [address] [place] [address] Hereditary hemochromatosis (Primary Dx)03/06/2025Telephone Hematology/Oncology [address] [place] [address] [place] [address] Titus Taylor MD FMLA Pdffphqnc89/25/2025Telephone Hematology/Oncology [address] [place] [address] Deb Maza RN Orders (Therapeutic Phlebotomy Orders )03/02/2025Results Follow-Up Hematology/Oncology [address] [place] [address] Titus Taylor MD 03/01/2025 2:00 PM ESTVisit (SP) Office Hematology/Oncology [address] [place] [address] Titus Taylor MD Hereditary hemochromatosis (Primary Dx)03/01/20256041Mpulpm89/03/2025 Patient Msg Hematology/Oncology [address] [place] [address] Titus Taylor MD Appointment Cancellation Qngqqrq9002/12/2025 Patient Msg BMI [facility] REJ [address] [place] [address] Ela Marquis, STRAIGHTENING PRESS OPERATOR.CHIEF COOK Appointment Zcldgqp6902/12/2025 Patient Msg Hematology/Oncology [address] [place] [address] Titus Taylor MD Appointment Btysuxw5402/01/2025 Get Medical Advice General Surgery [address] [phone] Ela Marquis, STRAIGHTENING PRESS OPERATOR.CHIEF COOK going up a dose of zxdiulua08/08/2025Patient Update General Surgery [address] [phone] Ela Marqius, STRAIGHTENING PRESS OPERATOR.CHIEF COOK 01/08/2025 Get Medical Advice General Surgery [address] [place] [address] Ela Marquis STRAIGHTENING PRESS OPERATOR.CHIEF COOK Pre approval for mlytuekpqyo63/19/2025[facility] [address] [place] [address] Ela Marquis, STRAIGHTENING PRESS OPERATOR.CHIEF COOK Med Change Kgbqgrm1112/28/2024 4:00 PM EDTDisMount [facility] [address] [place] [address] Ela Marquis, JUICE.CHIEF COOK Encounter for surgical aftercare following surgery of digestive system (Primary Dx); History of obesity; History of sleeve gastrectomy; Gdlnbwqout29/18/2025[facility] [address] [place] [address] Ela Marquis, JUICE.CHIEF COOK Med Change Svxyvnx7412/28/20244598Vcoamg77/05/2025Ref[facility] General Surgery [address] [place] [address] Ela Marquis APRN.CHIEF COOK Refill Requestfrom Last 3 Months Immunizations ImmunizationAdministration DatesNext Duehepatitis B (HepB) vaccine, 3-dose series, age 0 yr - 19 yr (ENGERIX B-PEDS, RECOMBIVAX HB-PEDS)12/25/2002, 10/08/2002influenza (IIV3) vaccine, trivalent (AFLURIA, FLULAVAL, FLUVIRIN, FLUZONE)05/12/2013influenza (IIV3) vaccine, trivalent, PF (AFLURIA, FLUARIX, FLULAVAL, FLUVIRIN, FLUZONE)03/04/2015influenza (IIV4) vaccine, age 6 mo - 64 yr, quadrivalent, PF (AFLURIA, FLUARIX, FLULAVAL, FLUZONE)01/19/2022,03/18/2021, 12/17/2016,01/25/2016influenza (IIV4) vaccine, quadrivalent (AFLURIA, FLULAVAL, FLUZONE)02/10/2018influenza vaccine, whole virus04/28/2012meningococcal (MPSV4) vaccine, quadrivalent (MENOMUNE)12/13/2002tetanus diphtheria (Td) vaccine, adult, unspecified /24/2003tetanus diphtheria pertussis (Tdap) vaccine, age 7+ yr (ADACEL, BOOSTRIX)01/26/2016 Family History Medical HistoryRelationCommentsDiabetesDaughtertype 1Heart diseaseFather HypertensionFatherOsteoporosisMotherRelationStatusCommentsDaughterAliveFather Mother Social History Tobacco UseTypesPacks/DayYears UsedDateSmoking Tobacco: FcmdmvBjcrvpwhsj017 04/12/2000 - 04/12/2014Smokeless Tobacco: Never Tobacco Cessation:Counseling Given: Not Answered Alcohol UseStandard Drinks/WeekCommentsNo0 (1 standard drink = 0.6 oz pure alcohol)PHQ-2AnswerDate RecordedPHQ-2 fjwri187/20/2025Area Deprivation Index AnswerDate RecordedNational Score (1-100), lower number is lower risk71 10/28/2022State Score (1-10), lower number is lower oejj1323Data from: https://www.neighborhoodatlas.[facility].edu/. Last address used for bporrilyqou[address]3CommentsNoSex and Gender Information ValueDate RecordedSex Assigned at BirthNot on fileLegal BagJyfphb27/24/2017 4:07 PM ESTGender IdentityNot on fileSexual OrientationNot on file Last Filed Vital Signs Vital SignReadingTime TakenCommentsBlood Vtlgxqam138/8203/06/2025 4:10 PM EST Jnale050603/06/2025 4:10 PM CPKLfnlqbfpenw51.9 ??C (98.4 ??F)03/06/2025 3:30 PM ESTRespiratory Gswp457205/06/2024 4:10 PM ESTOxygen Tfletjudrn37%03/01/2025 2:02 PM ESTInhaled Oxygen Concentration--Jwfhtk90.9 kg (154 lb 1.6 oz)03/01/2025 2:02 PM EDKMwdoiu323.5 cm (5' 7.13 )12/28/2024 4:02 PM EDTBody Mass Index24.05 12/28/2024 4:02 PM EDT Plan of Treatment DateTypeDepartmentCare Team (Latest Contact Info)Crsdawpzhjp37/09/2025 3:15 PM ESTOffice Visit [facility] [address] [place] [address] [place] [address] Phlebotomy and lab - q 2 weeks for 3 per ucdxrlj3903/20/2025 3:30 PM ESTInfformerly [facility] Hematology/Oncology [address] [place] [address] Phlebotomy and lab - q 2 weeks for 3 per bncykbb6403/29/2025 2:30 PM ESTOffice Visit [facility] [address] [place] [address] [place] [address] lab before phleb - lab needs drawn day or so prior to 3rd gjcjjsoiqh23/23/2025 3:30 PM [facility] Hematology/Oncology [address] [place] [address] [place] [address] Phlebotomy and lab (lab few days prior to 3rd phlebotomy)05/18/2025 8:30 AM [facility] [address] [phone] Ela Marquis APRN.CHIEF COOK [address] [phone] MyChart 90 day check in05/24/2025 2:45 PM ESTOffice Visit [facility] [address] [place] [address] 3 month follow up with lab05/24/2025 3:00 PM ESTVisit (SP) Office Hematology/Oncology [address] [place] [address] [place] [address] Nathaly Saucedo APRN.CHIEF COOK [address] [place] [address] 3 [facility] MaintenanceDue DateLast DoneCommentsAnnual PCP Team Chronic Disease Visit2002Depression Rigpnjjil62/11/2003HIV Screening 2002Hepatitis C Edefbinwx69/11/2003Hepatitis B Vaccine (3 of 3 - 3-dose series), 10/08/2002Cervical Cancer Gifyumrrd27/11/2006HPV Vaccine (1 - 3-dose SCDM series)2011Mammogram Jwdcfcdrn28/11/2025Covid-19 Vaccine (3 - season)501/01/2022, 1DTaP,Tdap,Td Vaccine (3 - Td or Tdap), 01/03/2003Influenza VaccineCompleted 01/18/2025, 01/19/2022, 03/18/2021, Additional history exists Procedures Procedure NamePriorityDate/TimeAssociated DiagnosisCommentsIRON + TIBCRoutine 03/01/2025 2:38 PM EST Hereditary hemochromatosis FERRITIN KAJOhwikfr51/20/2025 2:38 PM EST Hereditary hemochromatosis COMPREHENSIVE METABOLIC VVWIXWsjwaiv36/20/2025 2:38 PM EST Hereditary hemochromatosis CBC + XJZFDotoqzo85/20/2025 2:38 PM EST Hereditary hemochromatosis from Last 3 Months Results * IRON AND TIBC (03/01/2025 2:38 PM EST)ComponentValueRef RangeTest Method Analysis TimePerformed AtPathologist MbjhdxicsDngd43530 - 186 ug/dL03/02/2025 3:10 PM ESTDAY[facility] AGQILTR665701 - 386 ug/dL03/02/2025 3:10 PM [facility] LABTransferrin Hruxdbcrtd26.215.0 - 57.0 %03/02/2025 3:10 PM [facility] LABSpecimen (Source)Anatomical Location / LateralityCollection Method / VolumeCollection TimeReceived TimeBloodBLOOD SPECIMEN / UnknownVenipuncture / Lqilavo4603/01/2025 2:38 PM EST03/01/2025 2:38 PM EST Narrative Authorizing ProviderResult TypeResult StatusAdarsh Vennepureddy MDLABORATORY Final ResultPerforming OrganizationAddressCity/State/ZIP CodePhone Number [facility] [address] * (ABNORMAL) FERRITIN (03/01/2025 2:38 PM EST)ComponentValueRef RangeTest Method Analysis TimePerformed AtPathologist PbwgysuzvRbipdgvu436.0(H)14.7 - 205.1 ng/mL03/02/2025 3:22 PM ESTDAYTON CHILDR[facility] LABSpecimen (Source) Anatomical Location / LateralityCollection Method / VolumeCollection Time Received TimeBloodBLOOD SPECIMEN / UnknownVenipuncture / Ljhsgyc4103/01/2025 2:38 PM EST03/01/2025 2:38 PM EST Narrative Authorizing ProviderResult TypeResult StatusAdarsh Vennepureddy MDLABORATORY Final ResultPerforming OrganizationAddressCity/State/ZIP CodePhone Number [facility] [address] [place] [address], * (ABNORMAL) COMPREHENSIVE METABOLIC PANEL (03/01/2025 2:38 PM EST)Component ValueRef RangeTest MethodAnalysis TimePerformed AtPathologist Signature Protein, Total6.36.3 - 8.0 g/dL03/01/2025 3:03 PM [facility]RTMUN[facility] LABAlbumin3.93.9 - 4.9 g/dL03/01/2025 3:03 PM [facility] LABCalcium, Total8.58.5 - 10.2 mg/dL03/01/2025 3:03 PM [facility] LABBilirubin, Total0.30.2 - 1.3 mg/dL 03/01/2025 3:03 PM [facility] LABAlkaline Lrnrddigfwe6100 - 123 U/L105/01/2024 3:03 PM [facility] YXOLND2629 - 35 U/L105/01/2024 3:03 PM [facility] RTKBVY454 - 38 U/L105/01/2024 3:03 PM [facility] IRVPrvliwj700(H)74 - 99 mg/dL03/01/2025 3:03 PM [facility] LABComment: The [place] Diabetes Association (ADA) provides guidance for cutoff [...] Standards of Medical Care in Diabetes 2016, [place] Diabetes Association. Diabetes Care. 2016.39(Suppl 1). RIG399 - 21 mg/dL03/01/2025 3:03 PM [facility] Creatinine0.710.58 - 0.96 mg/dL03/01/2025 3:03 PM [facility] FOUGjvfps900802 - 144 mmol/L105/01/2024 3:03 PM [facility] LABPotassium3.73.7 - 5.1 mmol/L105/01/2024 3:03 PM [facility] XZAGvhkghuy91092 - 107 mmol/L105/01/2024 3:03 PM EST [facility] FOTWI27760 - 30 mmol/L105/01/2024 3:03 PM [facility] LABAnion Gap6(L)8 - 15 mmol/L105/01/2024 3:03 PM [facility] LABEstimated Glomerular Filtration Rate 110>=60 mL/min/1.73m 03/01/2025 3:03 PM [facility] LABComment:Estimated Glomerular Filtration Rate (eGFR) is calculated [...] VolumeCollection TimeReceived TimeBloodBLOOD SPECIMEN / UnknownVenipuncture / Jfspaho5503/01/2025 2:38 PM EST03/01/2025 2:38 PM EST Narrative Authorizing ProviderResult TypeResult StatusAdarsh Vennepureddy MDLABORATORY Final ResultPerforming OrganizationAddressCity/State/ZIP CodePhone Number [facility] [address] [place] [address] * COMPLETE BLOOD COUNT AND DIFFERENTIAL (03/01/2025 2:38 PM EST)ComponentValue Ref RangeTest MethodAnalysis TimePerformed AtPathologist SignatureWBC7.313.70 - 11.00 k/uL03/01/2025 2:40 PM ESTNORTHCOAST [facility] LABRBC4.61 3.90 - 5.20 m/uL03/01/2025 2:40 PM ESTNORTMUNISING MEM[facility] LAB Gipfgxuxdn42.011.5 - 15.5 g/dL03/01/2025 2:40 PM ESTNOGREENB[facility] QJPMipfdkoxgl41.736.0 - 46.0 %03/01/2025 2:40 PM ESTNORTMUNISING MEMORIAL [facility]OS[facility] UCKOKE48.180.0 - 100.0 fL03/01/2025 2:40 PM ESTNORTMUNISING MEMORIAL [facility]OS[facility]ITAL OHFBRW12.426.0 - 34.0 pg03/01/2025 2:40 PM EST [facility] KUOTSEV16.330.5 - 36.0 g/dL03/01/2025 2:40 PM ESTNORTMUNISING MEMORIAL [facility] LABRDW-CV11.911.5 - 15.0 %03/01/2025 2:40 PM ESTNORTMUNISING MEMORIAL [facility] LABPlatelet Ywnva578303 - 400 k/uL03/01/2025 2:40 PM ESTNORTMUNISING MEM[facility] LABMPV9.29.0 - 12.7 fL03/01/2025 2:40 PM ESTNORTMUNISING [facility] LABNeutrophils %55.2%03/01/2025 2:40 PM ESTNORTMUNISING MEM[facility] LABAbs Neut4.04 1.45 - 7.50 k/uL03/01/2025 2:40 PM ESTNORTMUNISING [facility] LAB Lymphocytes %36.3%03/01/2025 2:40 PM [facility] Abs Lymph2.651.00 - 4.00 k/uL03/01/2025 2:40 PM [facility] LABMonocytes %5.3%03/01/2025 2:40 PM [facility] LABAbs Mono0.39<0.87 k/uL03/01/2025 2:40 PM [facility] LABEosinophils %2.5%03/01/2025 2:40 PM [facility] LABAbs Eosin0.18<0.46 k/uL03/01/2025 2:40 PM [facility] LABBasophils %0.4%03/01/2025 2:40 PM [facility] LABAbs Baso0.03<0.11 k/uL03/01/2025 2:40 PM EST [facility] LABImmature Granulocytes %0.3%03/01/2025 2:40 PM [facility] LABAbs Immature Gran<0.03<0.10 k/uL03/01/2025 2:40 PM [facility] LABNRBC0.0/100 WBC 03/01/2025 2:40 PM [facility] LABAbsolute nRBC<0.01 <0.01 k/uL03/01/2025 2:40 PM [facility] LABDiff Type Auto03/01/2025 2:40 PM [facility] LABSpecimen (Source)Anatomical Location / LateralityCollection Method / VolumeCollection TimeReceived TimeBloodBLOOD SPECIMEN / UnknownVenipuncture / Jrjdwoj9203/01/2025 2:38 PM EST03/01/2025 2:38 PM EST Narrative Authorizing ProviderResult TypeResult StatusAdarsh Vennepureddy MDLABORATORY Final ResultPerforming OrganizationAddressCity/State/ZIP CodePhone Number [facility] [address] [place] [address] from Last 3 Months Insurance Advance Directives TypeDate RecordedPatient RepresentativeExplanationAdvance Directive(s)11/20/2016 2:51 PM Care Teams Team MemberRelationshipSpecialtyStart DateEnd Date Mariya Grossman MD [address] [place] [address] PCP - GeneralFamily Medicine05/12/16
--- OUTSIDE RECORDS SUMMARY | 2025-03-14 13:37 | XMS_ITS | Encounter Summary ---
Author Organization [facility] Address [address] [place] [address] Care Team Providers Care Market Risk Specialist Name Role Phone Mariya Grossman MD Primary Care Provider [phone] Source Comments In the event this information is protected by the Federal Confidentiality of Alcohol and Drug AbusePatient Records regulations: The Federal rules restrict any use of the information to criminally investigate or prosecute any alcohol or drug abuse patient.[facility] Reason for Visit * ReasonCommentsOrdersTherapeutic Phlebotomy Orders Encounter Details DateTypeDepartmentCare Team (Latest Contact Info)Kuizovchati41/25/2025Telephone Hematology/Oncology [address] [place] [address] [place] [address] Deb Maza, RACHEL Orders (Therapeutic Phlebotomy Orders ) Social History Tobacco UseTypesPacks/DayYears UsedDateSmoking Tobacco: TljrdpXxpqgcqcap423 04/12/2000 - 04/12/2014Smokeless Tobacco: NeverAlcohol UseStandard Drinks/Week CommentsNo0 (1 standard drink = 0.6 oz pure alcohol)PHQ-2AnswerDate RecordedPHQ- 2 /20/2025Area Deprivation IndexAnswerDate RecordedNational Score (1- 100), lower number is lower kfvs595610/28/2022State Score (1-10), lower number is lower xeux5943Data from: https://www.neighborhoodatlas.medicine.[facility].edu/. Last address used for cautvlbmmkg[address]3CommentsNoSex and Gender Information ValueDate RecordedSex Assigned at BirthNot on fileLegal MwdMfrkkj03/24/2017 4:07 PM ESTGender IdentityNot on fileSexual OrientationNot on filedocumented as of this encounter Functional Status * Are you deaf or do you have serious difficulty hearing?AnswerDate of MvdnyohgwnIeqnwjWq05/08/2017 1:49 PM Elayne Nunez APRN.PARCEL CARRIER * Are you blind or do you have serious difficulty seeing, even when wearing glasses?AnswerDate of MlzjfihcfaLezbpqBx60/08/2017 1:49 PM Elayne Nunez APRN.PARCEL CARRIER * Do you have serious difficulty walking or climbing stairs?AnswerDate of YepclaexbfSnrqceRu39/08/2017 1:49 PM Elayne Nunez APRN.PARCEL CARRIER * Do you have difficulty dressing or bathing?AnswerDate of AssessmentAuthorNo 12/18/2016 1:49 PM Elayne Nunez APRN.PARCEL CARRIER * Because of a physical, mental, or emotional condition, do you have difficulty doing errands alone such as visiting a doctor's office or shopping?AnswerDate of TrwzlyjiblBcgesfQj60/08/2017 1:49 PM Elayne Nunez APRN.PARCEL CARRIER documented as of this encounter Mental Status * Because of a physical, mental, or emotional condition, do you have serious difficulty concentrating, remembering, or making decisions?AnswerEntry Date KaazgwDk77/08/2017 1:49 PM Elayne Nunez APRN.PARCEL CARRIER documented in this encounter Miscellaneous Notes * Telephone Encounter - Enedelia Dumas - 03/06/2025 11:42 AM EST Patient's schedule has been adjusted. Enedelia Dumas * Telephone Encounter - Deb Maza RN - 03/06/2025 9:[address] Taylor phlebotomy every 2 weeks x 3 if ferritin is >=50 or Hgb >=12. Ok to use labs from 03/01/25 for phlebotomy on 03/06/25. Please repeat CBC only prior to second phlebotomy andrepeat ferritin and CBC prior to third phlebotomy. Scheduling:Please cancel lab appointment for today 03/06/25 and patient will need to come in at least a day prior to 3rd phlebotomy appointment for her labs(she can come up to [address] Taylor: please sign pending lab orders and future phlebotomy orders Thanks Wicho Maza RN documented in this encounter Plan of Treatment DateTypeDepartmentCare Team (Latest Contact Info)Hgozkdaozvr92/09/2025 3:15 PM ESTOffice Visit [facility] [address] [place] [address] [place] [address] Phlebotomy and lab - q 2 weeks for 3 per bknppop7303/20/2025 3:30 PM [facility] Hematology/Oncology [address] [place] [address] [place] [address] Phlebotomy and lab - q 2 weeks for 3 per rkmqzgx5203/29/2025 2:30 PM ESTOffice Visit [facility] [address] [address] lab before phleb - lab needs drawn day or so prior to 3rd orazvedrej14/23/2025 3:30 PM [facility] Hematology/Oncology [address] [place] [address] [place] [address] Phlebotomy and lab (lab few days prior to 3rd phlebotomy)05/18/2025 8:30 AM EST [facility] [address] [phone] Ela Marquis APRN.PARCEL CARRIER [address] [place] [address] MyChart 90 day check in05/24/2025 2:45 PM ESTOffice Visit [facility] [address] [place] [address] 3 month follow up with lab05/24/2025 3:00 PM ESTVisit (SP) Office Hematology/Oncology [address] [place] [address] Nathaly Saucedo APRN.PARCEL CARRIER [address] [place] [address] 3 month follow up with labNameTypePriorityAssociated DiagnosesOrder Schedule COMPLETE BLOOD COUNT AND DIFFERENTIALLabRoutine Hereditary hemochromatosis Every other week for 2 Occurrences starting 03/07/2025 until 03/06/2026FERRITIN LabRoutine Hereditary hemochromatosis Expected: 04/02/2025, Expires: 07/02/2025documented as of this encounter Visit Diagnoses Diagnosis Hereditary hemochromatosis- Primary documented in this encounter Care Teams Team MemberRelationshipSpecialtyStart DateEnd Date Mariya Grossman MD [address] [place] [id number] PCP - GeneralFamily Medicine05/12/16documented as of this encounter
--- OUTSIDE RECORDS SUMMARY | 2025-03-14 13:37 | XMS_ITS | Clinical Summary ---
Author Organization [facility] Healthcare Address [address] [place] [address] Care Team Providers Care Marble Cleaner Name Role Phone Mariya Grossman MD Primary Care Provider [phone] Allergies No known active allergies Medications MedicationSigDispense QuantityRefillsLast FilledStart DateEnd DateStatus phentermine (Adipex-P) 37.5 MG tablet Take 37.5 mg by mouth in the morning. Half a tablet daily.10/28/2022ctive Multiple Vitamin (MULTI VITAMIN PO) Take by mouthActive Probiotic Product (PRO-BIOTIC BLEND PO) Take by mouthActive Tirzepatide-Weight Management 12.5 MG/0.5ML solution auto-injector 03/31/2024ctive L norgest/e.estradiol-e.estrad (Seasonique) 0.15-0.03 &0.01 MG tablet tablet Indications:Uses controlTake 1 tablet by mouth in the morning. 91 tablet 5Active fluconazole (Diflucan) 150 MG tablet Indications:CandidiasisTake 1 tablet (150 mg) by mouth 1 (one) time for 1 dose 1 tablet Expired Active Problems ProblemNoted DateDiagnosed DateAdjustment disorder with mixed anxiety and depressed mood07/12/2024Marital maxtawdp38/02/2025Hereditary hemochromatosis 01/06/2024cquired izrbtwpkwflonn10/02/2023H/O gastric ehybrw0311/11/2022 Intractable chronic migraine without aura and without status migrainosus 11/11/2022Insulin fyglltocff92/04/2022Insulin resistance gzejeenu04/04/2022 Morbid enuaxbp0101/12/2022 Overview (11/11/2022): Last Assessment & Plan: The [...] will proceed with the following: Insurance: [employer] [place] Initial Consultation Date: 01/13/22 Sleep Study:Mild PILAR not using CPAP Psychiatric evaluation: pending - ordered today - referral given 3 Months of SWL: pending [employer] Completion: pending - ordered today - over 90 days PCP letter of support: pending - ordered today UGI Swallow study: pending Patient Educated with: Dietitian Nutrition Welcome.pdf (Dietitian Nutrition Welcome.pdf) Patient Educated with: Protein Food Chart.pdf (Protein Food Chart.pdf) Patient Educated with: Vegetable and Fruit Carbohydrate Counts Chart.pdf (Vegetable and Fruit Carbohydrate CountsChart.pdf). The entire nutrition, exercise, and mindset curriculum is also made available on our website. The comorbidities associated with the presenting problems include, but are not limited to: -Development of leak, infection or sepsis -Development of a stricture that may require one or more dilations to open it -Development of a blood clot in their leg (DVT) which could result in a clot goingto their lung (pulmonary embolism) -Development of paraesthesias, wound infections, hernias, adhesions, and/or bowel obstruction - Development of respiratory problems (requiring prolonged ventilatory dependence) -Development of blood loss (requiring transfuison) -Necessity to undergo a re- operation for any reason that the surgeon deems medically necessary -Necessity to follow up with the entire [facility] Bariat[facility] Surgery Team including surgeons, nurse practitioners, nutrition/metabolism specialists during their weight loss period (for life) -Importance of compliance with the multivitamin and calcium citrate recommendations for lifelong health There are several management options for this patient, including: -Behavioral modification -Pharmacotherapy -Surgical options: -->Laparoscopic Sleeve Gastrectomy -->Laparoscopic Juanis-En-Y Gastric Bypass Chronic mvewidr0901/12/2022ersonal history of nicotine medxsrczsx54/13/2021COS (polycystic ovarian syndrome)08/07/2016 Resolved Problems ProblemNoted DateDiagnosed DateResolved MigyCyhuxfw77/04/202202/10/2023Mild obstructive sleep apnea/hronic back pain Encounters DateTypeDepartmentCare SdwcEclynjixyhm50/01/2025 5:00 PM ESTSocial Work [facility] [address] [place] [address] Jenny Smith, [facility] Adjustment disorder with mixed anxiety and depressed mood; Marital pepczgjm81/01/2025amboo flowsheet [facility] [address] [place] [address] Jenny Smith [facility] 03/12/20258596Ddmsym93/25/2025 10:30 AM ESTProcedure Visit NOMMt [facility] [address] [place] [address] [place] [address] Sean Garza, ASCUS with positive high risk HPV cervical; Colposcopy needed after cervical smear02/21/2025amboo flowsheet [facility] [address] [place] [address] Nam Pickens LPC 02/21/20253148Tswaew22/11/2025 5:00 PM ESTSocial Work [facility] [address] [place] [address] Nam Pickens LPC Adjustment disorder with mixed anxiety and depressed mood; Marital rikrhuwu29/11/2912Gsfmsq16/11/2025Orders Only [facility] [address] [place] [address] Josefina Carrillo NP Candidiasis (Primary Dx)02/20/2025Results Follow-Up [facility] [address] [place] [address] Mariya Grossman MD IGP,APTIMA HPV,AGE GDLN02/19/2025Telephone [facility] José [facility] [address] [place] [place] [address] Iliana Bae MA 02/06/2025 4:00 PM EDTTelemedicine N[facility] [address] [place] [address] Nam Pickens LPC Marital problems; Adjustment disorder with mixed anxiety and depressed mood02/06/2025amboo flowsheet [facility] [address] [place] [address] Nam Pickens LPC 02/06/20259130Kiqpqa44/14/2025 4:30 PM EDTSocial Work [facility] [address] [place] [address] Nam Pickens LPC Marital problems; Adjustment disorder with mixed anxiety and depressed mood01/23/2025Travel 01/22/2025 4:00 PM EDTProcedure Visit [facility] José [facility]LE[facility] [address] [facility] [place] [address] Lucrecia Sahni PA Well woman exam with routine gynecological exam; Encounter for screening mammogram for malignant neoplasm of breast; Uses roeixia0801/22/2025linisync Result Encounter N[facility] External Department Unsolicited Lucrecia Sahni PA 01/22/2025amb flowsheet [facility] José [facility] [address] [facility] [place] [address] Lucrecia Sahni PA 01/16/2025 4:30 PM EDTSocial Work [facility] [address] [place] [address] Nam Pickens LPC Marital problems; Adjustment disorder with mixed anxiety and depressed mood01/16/2025amboo flowsheet [facility] [address] [place] [address] Nam Pickens, EFFERV[employer]CENT SALTS COMPOUNDER 01/16/20252106Onlkka15/06/2025Orders Only [facility] [address] [place] [address] Adrienne Hearn LPN 01/11/2025 3:30 PM EDTTelemedicine N[facility] [address] [place] [address] Nam Pickens, E[employer]ERV[employer] SALTS COMPOUNDER Adjustment disorder with mixed anxiety and depressed mood; Marital ypvgayqs11/02/2025amboo flowsheet [facility] [address] [place] [address] Nam Pickens, E[employer]ERV[employer] SALTS COMPOUNDER 01/11/20259375Brmgsb01/17/2025Refill [facility] [address] [place] [place] [address] Lucrecia Sahni PA Uses rmkhhpl3512/21/2024 4:00 PM EDTTelemedicine N[facility] [address] [place] [address] Nam Pickens, E[employer]ERV[employer] SAL[employer] COMPOUNDER Adjustment disorder with mixed anxiety and depressed mood ; Marital zvqjuloa22/11/2025amboo flowsheet [facility] [address] [place] [address] Nam Pickens, E[employer]ERV[employer] SALTS COMPOUNDER 12/21/20245917Lebrbd19/04/2025 4:30 PM EDTSocial Work [facility] [address] [place] [address] Nam Pickens, E[employer]ERV[employer] SAL[employer] COMPOUNDER Adjustment disorder with mixed anxiety and depressed mood ; Marital ursidbcd05/04/2025amboo flowsheet [facility] [address] [place] [address] Nam Pickens, E[employer] SALTS COMPOUNDER 12/14/2024Travelfrom Last 3 Months Immunizations ImmunizationAdministration DatesNext DueHep B, Adolescent or Zusduaelf56/15/2003 ,10/08/2002Influenza Whole04/28/2012Influenza, injectable, quadrivalent 02/10/2018Influenza, injectable, quadrivalent, preservative free01/19/2022, 03/18/2021,12/17/2016,01/25/2016Influenza, seasonal, dfolosaost44/31/2014 Influenza, seasonal, injectable, preservative free03/04/2015,05/12/2013 Meningococcal RRNC474Td (adult), gpqjbggxiwo92/24/9807Yvvh44/16/2016 Family History Medical HistoryRelationNameCommentsHeart diseaseFatherSamuel WithrowHypertension FatherSamuel WithrowCancerMaternal GrandfatherCarl gullettDiabetesMaternal GrandfatherCarl gullettHypertensionMaternal GrandfatherCarl gullettCancer Maternal GrandmotherMary withrowDiabetesMaternal GrandmotherMary puneet HypertensionMaternal GrandmotherMary withrowKidney diseaseMaternal Grandmother Lindsey withrowHepatitisMotherDiabetesPaternal GrandfatherHypertensionPaternal GrandfatherDiabetesPaternal GrandmotherMary WithrowHypertensionPaternal GrandmotherMary WithrowRelationNameStatusCommentsDaughterFatherSamuel Puneet AliveMaternal GrandfatherCarl gullettMaternal GrandmotherMary withrowMotherAlive Paternal GrandfatherPaternal GrandmotherMary WithrowSon2 Social History Tobacco UseTypesPacks/DayYears UsedDateSmoking Tobacco: FormerCigarettesQuit: 04/12/2014Smokeless Tobacco: Never Tobacco Cessation:Counseling Given: Not Answered Alcohol UseStandard Drinks/WeekCommentsNot Currently0 (1 standard drink = 0.6 oz pure alcohol)Caffeine intake: 4-5 coffee mnnkrT6924 Health LiteracyAnswerDate RecordedHow often do you need to have someone help you when you read instructions, pamphlets, or other written material from your doctor or pharmacy? Never02/07/2024Humiliation, Afraid, Rape, and Kick questionnaireAnswerDate RecordedWithin the last year, have you been afraid of your partner or ex-partner?No11/13/2022Within the last year, have you been humiliated or emotionally abused in other ways by your partner or ex-partner?No11/13/2022 Within the last year, have you been kicked, hit, slapped, or otherwise physically hurt by your partner or ex-partner?11/13/2022Within the last year, have you been raped or forced to have any kind of sexual activity by your part ner or ex-partner?No11/13/2022Social Connection and Isolation PanelAnswerDate RecordedIn a typical week, how many times do you talk on the phone with family, friends, or neighbors?Three times a week02/07/2024How often do you get together with friends or relatives?Once a week02/07/2024How often do you attend muslim or buddhism services?More than 4 times per year02/07/2024o you belong to any clubs or organizations such as muslim groups, unions, fraternal or athletic john ups, or school groups?No02/07/2024How often do you attend meetings of the clubs or organizations you belong to?Never02/07/2024re you , , , , never , or living with a partner?Vtvjymc3002/07/2024 AUDIT-CAnswerDate RecordedQ1: How often do you have a drink containing alcohol? Never02/07/2024Q2: How many drinks containing alcohol do you have on a typical day when you are drinking?Patient does not drink02/07/2024Q3: How often do you have six or more drinks on one occasion?Never02/07/2024Overall Financial Resource Strain (CARDIA)AnswerDate RecordedHow hard is it for you to pay for the very basics like food, housing, medical care, and heating?Not hard at all 02/07/2024[facility] [place] [facility] Occup[facility] - Occupational Stress QuestionnaireAnswerDate [...] steady place to sleep or slept in [facility] (including now)?No11/13/2022Housing Stability Vital SignAnswerDate RecordedIn the last 12 months, was there a time when you were not able to pay the mortgage or rent on time?No02/07/2024In the past 12 months, how many times have you moved where you were living?t any time in the past 12 months, were you homeless or living in a jail (including now)?No 02/07/2024CommentsNoSex and Gender InformationValueDate RecordedSex Assigned at BirthNot on fileLegal PsgQcujii94/15/2023 6:37 PM EDTGender Identity Not on fileSexual OrientationNot on file Last Filed Vital Signs Vital SignReadingTime TakenCommentsBlood Mzyegrdi718/6811 10:54 AM EST Uzftf502606/15/2024 9:04 AM AMWMsnubuidllc24.7 ??C (99.8 ??F)06/08/2024 11:02 AM ESTRespiratory Rate--Oxygen Hzewxchozz52%06/15/2024 9:04 AM ESTInhaled Oxygen Concentration--Ksjptt04.5 kg (151 lb)03/06/2025 10:54 AM HQLKjnntv555.2 cm (5' 7 )01/22/2025 4:03 PM EDTBody Mass Index23.6501/22/2025 4:03 PM EDT Plan of Treatment DateTypeDepartmentCare Team (Latest Contact Info)Kqpazearxsx42/15/2025 5:00 PM ESTTelemedicine [facility] [address] [place] [address] Jenny Smith, [facility] [address] [place] [address] 04/16/2025 4:00 PM ESTProcedure Visit ELSA [facility] [address] [place] [address] [place] [address] Sean Garza, DO [address] [facility] [address] [place], [place] [address] 08/01/2025 3:50 PM EDTProcedure Visit ELSA VALLEJO [address] [place] [address] [place] [address] Sean Garza, DO [address] [facility] [address] [place], [place] [address] Health MaintenanceDue DateLast PbzvMwvuzlbhRzewclnqf37/11/2025COVID-19 Vaccine ( season)501/01/2022, 1Pap Smear01/23/2028 01/22/2025, 2Cervical Cancer Lgmtvhvey94/13/2030HPV/Gynuzz1901/22/2030 01/22/2025, 09/16/2018Influenza FrjickqNldvvsybo64/09/2025, 01/19/2022, 03/18/2021, Additional history existsPneumococcal Vaccine: Pediatrics (0 to 5 Years) and At-Risk Patients (6 to 64 Years)Aged OutNo longer eligible based on patient's age to complete this topic Procedures Procedure NamePriorityDate/TimeAssociated DiagnosisCommentsCOLPOSCOPYRoutine 03/06/2025 11:17 AM EST ASCUS with positive high risk HPV cervical POCT , TYCSRFtrmcti04/25/2025 11:00 AM EST ASCUS with positive high risk HPV cervical Colposcopy needed after cervical smear THIN PREP TIS PAP AND HR HPV YXSRrhbwhj42/13/2025 3:58 PM EDT Well woman exam with routine gynecological exam IGP,APTIMA HPV,AGE MCXXTryxjvi07/13/2025 3:55 PM EDT from Last 3 Months Results * Colposcopy (03/06/2025 11:17 AM EST) Swathi Russell LPN - 03/06/2025 11:17 AM EST Swathi Sosa LPN 03/07/2025 10:59 AM Colposcopy Date/Time: [...] months for Repeat Pap. Authorizing ProviderResult TypeResult StatusCorey Kayla [facility]/BEDSIDE ORDERABLESFinal Result * POCT , urine manually resulted (03/06/2025 11:00 AM EST)Component ValueRef RangeTest MethodAnalysis TimePerformed AtPathologist SignaturePreg Test, UrNegativeNegativeSpecimen (Source)Anatomical Location / Laterality Collection Method / VolumeCollection TimeReceived IqorEtlkj25/25/2025 11:00 AM EST Narrative Authorizing ProviderResult TypeResult StatusCorestephon Garza DOPOINT OF CARE TEST ENTER/EDIT ORDERABLESFinal Result * THIN PREP TIS PAP AND HR HPV DNA (01/22/2025 3:58 PM EDT)Specimen (Source) Anatomical Location / LateralityCollection Method / VolumeCollection Time Received NabsQkeo73/13/2025 3:58 PM EDT Narrative Authorizing ProviderResult TypeResult StatusLucrecia FLORES CYTOLOGY ORDERABLES Final ResultPerforming OrganizationAddressCity/State/ZIP CodePhone Number EXTERNAL LAB * (ABNORMAL) IGP,APTIMA HPV,AGE GDLN (01/22/2025 3:55 PM EDT)ComponentValueRef RangeTest MethodAnalysis TimePerformed AtPathologist SignatureAGE GDLN ACOG TESTINGNote.TBHComment: ?? TESTS ? RESULT ??FLAG ??UNITS ?REF RANGE ??LAB ?? Clinician Provided Cytology Information ?? Source.............Cervix;Endocervix ?? No. of containers..01 ThinPrep Vial Age Algo ACOG Vera... ??30-65 ? 01 ?FLAG LEGEND: ?L-Low Normal,H-High Normal,LL-Alert Low,HH-Alert High <-Panic Low,>-Panic High,A-Abnormal,AA-Critical Abnormal Performed at: 01 =G ?[facility] ?? [address] [place], [place] ??[phone] ?? Lissett Akhtar MD, IGP, APTIMA HPV, RFX 16/18,45Note(A).TBHComment: ?? TESTS ? RESULT ??FLAG ??UNITS ?REF RANGE ??LAB DIAGNOSIS: ? [A] ?02 ?? EPITHELIAL CELL ABNORMALITY. ?? ATYPICAL SQUAMOUS CELLS OF UNDETERMINED SIGNIFICANCE (ASC-US). Recommendation: ?[A] ?02 ?? Suggest follow up as clinically appropriate. Specimen adequacy: ?02 ?? Satisfactory for evaluation. ??Endocervical and/or squamous metaplastic ?? cells (endocervical component) are present. Performed by: ? 02 ?? Hilario Membreno, Collections Manager (ASCP) Electronically si... ?02 ?? Lissett Akhtar MD, Pathologist . ? 02 Pathologist ICD10: ?02 ?? R87.610 Note: ? Note ?02 ?? The Pap smear is a screening test designed to aid in the ?? detection of premalignant and malignant conditions of the ?? uterine cervix. ??It is not a diagnostic procedure and ?? should not be used as the sole means of detecting cervical ?? cancer. ??Both false-positive and false-negative reports do ?? occur. Test Methodology: ? Note ?02 ?? This liquid based ThinPrep(R) pap test was interpreted ?? using the Quemulus(R) Genius(TM) Cervical Algorithm whole ?? slide imaging system. HPV Genotype Reflex ?? Note ?02 ?? Criteria not met, HPV Genotype not performed. ?FLAG LEGEND: ?L-Low Normal,H-High Normal,LL-Alert Low,HH-Alert High <-Panic Low,>-Panic High,A-Abnormal,AA-Critical Abnormal Performed at: 02 WB ?[facility] ?? [address], [place] ??[phone] ?? Lissett Akhtar MD, HPV APTIMAPositive(A)NegativeTBHComment: This nucleic acid amplification test detects fourteen high- risk HPV types (16,18,31,33,35,39,45,51,52,56,58,59,66,68) without differentiation. Performed at: ??=G - [facility] [address], [place] ??[id number] Drying Tumbler Operator: Lissett Akhtar MD, Phone: ??[phone] Performed at: ??WB - [facility] [address], [place] ??[id number] Drying Tumbler Operator: Lissett Akhtar MD, Phone: ??[phone] Specimen (Source)Anatomical Location / LateralityCollection Method / Volume Collection TimeReceived Time01/22/2025 3:55 PM EDT1 7:40 AM EDT Narrative [facility] - 01/29/2025 5:09 PM EDT BRUSH-SPATULA CERVIX ENDOCERVIX Authorizing ProviderResult TypeResult StatusAmy [place] PAL[place] BLOOD ORDERABLES Final ResultPerforming OrganizationAddressCity/State/ZIP CodePhone Number [facility] TB from Last 3 Months Insurance Care Teams Team MemberRelationshipSpecialtyStart DateEnd Mariya Grossman MD [address] [place] [address] PCP - GeneralFamily Medicine11/11/22
--- OUTSIDE RECORDS SUMMARY | 2025-03-14 13:37 | XMS_ITS | Encounter Summary ---
Author Organization [facility] Address [address] [place] [address] Care Team Providers Care Manuscripts Curator Name Role Phone Mariya Grossman MD Primary Care Provider [phone] Source Comments In the event this information is protected by the Federal Confidentiality of Alcohol and Drug AbusePatient Records regulations: The Federal rules restrict any use of the information to criminally investigate or prosecute any alcohol or drug abuse patient.[facility] Encounter Details DateTypeDepartmentCare Team (Latest Contact Info)Bfknekundwt36/21/2025Results Follow-Up Hematology/Oncology [address] [place] [address] Titus Taylor MD [address] [place] [address] [place] [address] Social History Tobacco UseTypesPacks/DayYears UsedDateSmoking Tobacco: AahmqwZqhyjbxgod323 04/12/2000 - 04/12/2014Smokeless Tobacco: NeverAlcohol UseStandard Drinks/Week CommentsNo0 (1 standard drink = 0.6 oz pure alcohol)PHQ-2AnswerDate RecordedPHQ- 2 /20/2025Area Deprivation IndexAnswerDate RecordedNational Score (1- 100), lower number is lower [id number] Score (1-10), lower number is lower fapx2063Data from: https://www.neighborhoodatlas.medicine.[facility]/. Last address used for ipzocptvrro[address]3CommentsNoSex and Gender Information ValueDate RecordedSex Assigned at BirthNot on fileLegal DvtCgigns88/24/2017 4:07 PM ESTGender IdentityNot on fileSexual OrientationNot on filedocumented as of this encounter Functional Status * Are you deaf or do you have serious difficulty hearing?AnswerDate of PwbyuofvrlCimdspDi94/08/2017 1:49 PM Elayne Nunez APRN.FITNESS TECHNICIAN * Are you blind or do you have serious difficulty seeing, even when wearing glasses?AnswerDate of PelbrysqdsEpqlkaQp06/08/2017 1:49 PM Elayne Nunez APRN.FITNESS TECHNICIAN * Do you have serious difficulty walking or climbing stairs?AnswerDate of LoubdvjuxpXxiaduAx59/08/2017 1:49 PM Elayne Nunez APRN.FITNESS TECHNICIAN * Do you have difficulty dressing or bathing?AnswerDate of AssessmentAuthorNo 12/18/2016 1:49 PM Elayne Nunez APRN.FITNESS TECHNICIAN * Because of a physical, mental, or emotional condition, do you have difficulty doing errands alone such as visiting a doctor's office or shopping?AnswerDate of CcsbfvesauDcfrerNl79/08/2017 1:49 PM Elayne Nunez APRN.FITNESS TECHNICIAN documented as of this encounter Mental Status * Because of a physical, mental, or emotional condition, do you have serious difficulty concentrating, remembering, or making decisions?AnswerEntry Date EjnkocEc62/08/2017 1:49 PM Elayne Nunez APRN.FITNESS TECHNICIAN documented in this encounter Miscellaneous Notes * Result Encounter Note - Enedelia Dumas - 03/05/2025 8:59 AM EST Patient has been scheduled. Enedelia Dumas * Telephone Encounter - Titus Taylor MD - 03/02/2025 3:47 PM EST Please schedule phlebotomy 500cc once every 2 weeks for 3 times. Thank you. documented in this encounter Plan of Treatment DateTypeDepartmentCare Team (Latest Contact Info)Zzdtlgjymlh85/09/2025 [address] [facility] [address] [place] [address] [place] [address] Phlebotomy and lab - q 2 weeks for 3 per leobbzu3903/20/2025 3:30 PM [facility] Hematology/Oncology [address] [place] [address] [place] [address] Phlebotomy and lab - q 2 weeks for 3 per sxjmbox0703/29/2025 2:[address] [facility] [address] [place] [address] [place] [address] lab before phleb - lab needs drawn day or so prior to 3rd kfvjtebohl53/23/2025 3:30 PM [facility] Hematology/Oncology [address] [place] [address] [place] [address] Phlebotomy and lab (lab few days prior to 3rd phlebotomy)05/18/2025 8:30 AM EST [facility] [address] [place] [address] Ela Marquis, JUICE.FITNESS TECHNICIAN [address] [place] [address] MyChart 90 day check in05/24/2025 2:[address] [facility] [address] [place] [address] [place] [address] 3 month follow up with lab05/24/2025 3:00 PM ESTVisit (SP) Office Hematology/Oncology [address] [place] [address] [place] [address] Nathaly Saucedo, JUICE.[address] [place] [address] 3 month follow up with labdocumented as of this encounter Visit Diagnoses Not on filedocumented in this encounter Care Teams Team MemberRelationshipSpecialtyStart DateEnd Date Mariya Grossman MD [address] [place] [address] PCP - GeneralFamily Medicine05/12/16documented as of this encounter
--- OUTSIDE RECORDS SUMMARY | 2025-03-14 13:37 | XMS_ITS | Encounter Summary ---
Author Organization [facility] Address [address] [place] [address] Care Team Providers Care Centerless Grinder Operator Name Role Phone Mariya Grossman MD Primary Care Provider [phone] Source Comments In the event this information is protected by the Federal Confidentiality of Alcohol and Drug AbusePatient Records regulations: The Federal rules restrict any use of the information to criminally investigate or prosecute any alcohol or drug abuse patient.[facility] Reason for Visit * ReasonCommentsFMLA Paperwork Encounter Details DateTypeDepartmentCare Team (Latest Contact Info)Ckbkgquxwyq85/25/2025Telephone Hematology/Oncology [address] [place] [address] [place] [address] Titus Taylor MD [address] [place] [address] [place] [address] [place] Paperwork Social History Tobacco UseTypesPacks/DayYears UsedDateSmoking Tobacco: GvvwaqQydrtlxbga537 04/12/2000 - 04/12/2014Smokeless Tobacco: NeverAlcohol UseStandard Drinks/Week CommentsNo0 (1 standard drink = 0.6 oz pure alcohol)PHQ-2AnswerDate RecordedPHQ- 2 /20/2025Area Deprivation IndexAnswerDate RecordedNational Score (1- 100), lower number is lower ihfe976310/28/2022State Score (1-10), lower number is lower [id number] from: https://www.neighborhoodatlas.medicine.[facility]/. Last address used for fwvabhfls[address]CommentsNoSex and Gender Information ValueDate RecordedSex Assigned at BirthNot on fileLegal WqyTngshb19/24/2017 4:07 PM ESTGender IdentityNot on fileSexual OrientationNot on filedocumented as of this encounter Functional Status * Are you deaf or do you have serious difficulty hearing?AnswerDate of MqrasicqqjHpjtjdXs49/08/2017 1:49 PM Elayne Nunez APRN.PHONOGRAPH NEEDLE TIP MAKER * Are you blind or do you have serious difficulty seeing, even when wearing glasses?AnswerDate of JjpadkwejsQvjnaaOo27/08/2017 1:49 PM Elayne Nunez APRN.PHONOGRAPH NEEDLE TIP MAKER * Do you have serious difficulty walking or climbing stairs?AnswerDate of LfaebvemzcWgcldiFg10/08/2017 1:49 PM Elayne Nunez APRN.PHONOGRAPH NEEDLE TIP MAKER * Do you have difficulty dressing or bathing?AnswerDate of AssessmentAuthorNo 12/18/2016 1:49 PM Elayne Nunez APRN.PHONOGRAPH NEEDLE TIP MAKER * Because of a physical, mental, or emotional condition, do you have difficulty doing errands alone such as visiting a doctor's office or shopping?AnswerDate of FixawijuvlHdvmysKk47/08/2017 1:49 PM Elayne Nunez APRN.PHONOGRAPH NEEDLE TIP MAKER documented as of this encounter Mental Status * Because of a physical, mental, or emotional condition, do you have serious difficulty concentrating, remembering, or making decisions?AnswerEntry Date AjvkfyUz86/08/2017 1:49 PM Elayne Nunez APRN.PHONOGRAPH NEEDLE TIP MAKER documented in this encounter Miscellaneous Notes * Telephone Encounter - Cayla Crow MA - 03/09/2025 3:03 PM EST [facility] paperwork faxed to Stuart @ [phone] and emailed to patient per request. Cayla Crow MA * Telephone Encounter - Cayla Crow MA - 03/06/2025 3:18 PM EST [facility] paperwork completed and placed in folder to be signed. Cayla Crow MA documented in this encounter Plan of Treatment DateTypeDepartmentCare Team (Latest Contact Info)Cvaakocntbu44/09/2025 3:15 PM ESTOffice [facility] [address] [place] [address] [place] [address] Phlebotomy and lab - q 2 weeks for 3 per cxnlqrn3903/20/2025 3:30 PM [facility] Hematology/Oncology [address] [place] [address] [place] [address] Phlebotomy and lab - q 2 weeks for 3 per yjdorja3403/29/2025 2:30 PM ESTOffice Visit [facility] [address] [place] [address] [place] [address] lab before phleb - lab needs drawn day or so prior to 3rd jcjxcokudu97/23/2025 3:30 PM [facility] Hematology/Oncology [address] [place] [address] [place] [address] Phlebotomy and lab (lab few days prior to 3rd phlebotomy)05/18/2025 8:30 AM EST [facility] Surgery [address] [place] [address] Ela Marquis APRN.PHONOGRAPH NEEDLE TIP MAKER [address] [place] [address] MyChart 90 day check in05/24/2025 2:45 PM ESTOffice Visit [facility] [address] [place] [address] [place] [address] 3 month follow up with lab05/24/2025 3:00 PM ESTVisit (SP) Office Hematology/Oncology [address] [place] [address] Nathaly Saucedo APRN.[facility] [address] [place] [address] 3 month follow up with labdocumented as of this encounter Visit Diagnoses Not on filedocumented in this encounter Care Teams Team MemberRelationshipSpecialtyStart DateEnd Date Mariya Grossman MD [address] [place] [phone] PCP - GeneralFamily Medicine05/12/16documented as of this encounter
--- OUTSIDE RECORDS SUMMARY | 2025-03-14 13:37 | XMS_ITS | Encounter Summary ---
Author Organization [facility] Address [address] [place] [address] Care Team Providers Care Flour Distributor Name Role Phone Mariya Grossman MD Primary Care Provider [phone] Encounter Details DateTypeDepartmentCare Team (Latest Contact Info)Atwruddswik86/01/2025amboo flowsheet [facility] [address] [facility] [address] [place] [phone] Jenny [facility] [address] [facility] [address] [place] [address] Social History Tobacco UseTypesPacks/DayYears UsedDateSmoking Tobacco: FormerCigarettesQuit: 04/12/2014Smokeless Tobacco: NeverAlcohol UseStandard Drinks/WeekCommentsNot Currently0 (1 standard drink = 0.6 oz pure alcohol)Caffeine intake: 4-5 coffee [id number] Health LiteracyAnswerDate RecordedHow often do you need [...] relatives?Once a week02/07/2024How often do you attend religious or confucianism services?More than 4 times per year02/07/2024o you belong to any clubs or organizations such as religious groups, unions, fraternal or athletic groups, or [...] medical care, and heating?Not hard at all 02/07/2024[facility] - Occupational Stress QuestionnaireAnswerDate [...] InformationValueDate RecordedSex Assigned at BirthNot on fileLegal FtuIarnxs04/15/2023 6:37 PM EDTGender Identity Not on fileSexual OrientationNot on filedocumented as of this encounter Plan of Treatment DateTypeDepartmentCare Team (Latest Contact Info)Otijwiajveo52/15/2025 5:00 PM ESTTelemedicine [facility] [address] [place] [phone] Jenny Smith, [facility] [address] [place] [address] 04/16/2025 4:00 PM ESTProcedure Visit [facility] [address] [place] [address] [place] [phone] Sean Garza, DO [address] [facility] [place] [address] 08/01/2025 3:50 PM EDTProcedure Visit [facility] [address] [facility] [facility] [place] [address] Sean Garza, DO [address] [place] [address] documented as of this encounter Visit Diagnoses Not on filedocumented in this encounter Care Teams Team MemberRelationshipSpecialtyStart DateEnd Date Mariya Grossman MD [address] [facility] [place] [address] PCP - GeneralFamily Medicine11/11/22documented as of this encounter
--- OUTSIDE RECORDS SUMMARY | 2025-03-14 13:37 | XMS_ITS | Encounter Summary ---
Author Organization [facility] Address [address] [place] [address] Care Team Providers Care Tack Cleaner Name Role Phone Mariya Grossman MD Primary Care Provider [phone] Source Comments In the event this information is protected by the Federal Confidentiality of Alcohol and Drug AbusePatient Records regulations: The Federal rules restrict any use of the information to criminally investigate or prosecute any alcohol or drug abuse patient.[facility] Encounter Details DateTypeDepartmentCare Team (Latest Contact Info)Rxieueehoxf17/28/2025 Get Medical Advice Hematology/Oncology [address] [facility] [place] [address] Titus Taylor MD [address] [place] [address] FMLA PAPERS Social History Tobacco UseTypesPacks/DayYears UsedDateSmoking Tobacco: YcnixwLcdaqczhup422 04/12/2000 - 04/12/2014Smokeless Tobacco: NeverAlcohol UseStandard Drinks/Week CommentsNo0 (1 standard drink = 0.6 oz pure alcohol)PHQ-2AnswerDate RecordedPHQ- 2 /20/2025Area Deprivation IndexAnswerDate RecordedNational Score (1- 100), lower number is lower szfd700410/28/2022State Score (1-10), lower number is lower uwbt0233Data from: https://www.neighborhoodatlas.medicine.[facility]/. Last address used for iz[address]3CommentsNoSex and Gender Information ValueDate RecordedSex Assigned at BirthNot on fileLegal KjaUugyfh90/24/2017 4:07 PM ESTGender IdentityNot on fileSexual OrientationNot on filedocumented as of this encounter Functional Status * Are you deaf or do you have serious difficulty hearing?AnswerDate of BgctlzdeqjMzqqlmPk77/08/2017 1:49 PM Elayne Nunez APRN.DOG BREEDER * Are you blind or do you have serious difficulty seeing, even when wearing glasses?AnswerDate of WutxpucfchZdqpggDz37/08/2017 1:49 PM Elayne Nunez APRN.DOG BREEDER * Do you have serious difficulty walking or climbing stairs?AnswerDate of AmyznibumzJlpkehSq03/08/2017 1:49 PM Elayne Nunez APRN.DOG BREEDER * Do you have difficulty dressing or bathing?AnswerDate of AssessmentAuthorNo 12/18/2016 1:49 PM Elayne Nunez APRN.DOG BREEDER * Because of a physical, mental, or emotional condition, do you have difficulty doing errands alone such as visiting a doctor's office or shopping?AnswerDate of ZdmsbxqqmvBjslfjSp74/08/2017 1:49 PM Elayne Nunez APRN.DOG BREEDER documented as of this encounter Mental Status * Because of a physical, mental, or emotional condition, do you have serious difficulty concentrating, remembering, or making decisions?AnswerEntry Date PoxpotFr93/08/2017 1:49 PM Elayne Nunez APRN.DOG BREEDER documented in this encounter Miscellaneous Notes * Telephone Encounter - Radha Us RN - 03/12/2025 8:46 AM EST Vanessa: Please mail [facility] paperwork completed 03/09/25 Thank you! documented in this encounter Plan of Treatment DateTypeDepartmentCare Team (Latest Contact Info)Wyrrcmdesbu37/09/2025 3:15 PM ESTOffice Visit [facility] [address] [place] [address] Phlebotomy and lab - q 2 weeks for 3 per xijempe4403/20/2025 3:30 PM [facility] Hematology/Oncology [address] [place] [address] [place] [address] Phlebotomy and lab - q 2 weeks for 3 per onqpagg3203/29/2025 2:30 PM ESTOffice Visit [facility] [address] [facility] [place] [address] lab before phleb - lab needs drawn day or so prior to 3rd cyrdoxwigk49/23/2025 3:30 PM [facility] Hematology/Oncology [address] [place] [address] [place] [address] Phlebotomy and lab (lab few days prior to 3rd phlebotomy)05/18/2025 8:30 AM EST [facility] Surgery [address] [place] [address] Ela Marquis APRN.DOG BREEDER [address] [place] [address] MyChart 90 day check in05/24/2025 2:45 PM ESTOffice Visit [facility] [address] [place] [address] [place] [address] 3 month follow up with lab05/24/2025 3:00 PM ESTVisit (SP) Office Hematology/Oncology [address] [place] [address] [place] [address] Nathaly Saucedo APRN.DOG BREEDER [address] [facility] [place] [address] 3 month follow up with labdocumented as of this encounter Visit Diagnoses Not on filedocumented in this encounter Care Teams Team MemberRelationshipSpecialtyStart DateEnd Date Mariya Grossman MD [address] [place] [address] PCP - GeneralFamily Medicine05/12/16documented as of this encounter
--- OUTSIDE RECORDS SUMMARY | 2025-03-14 13:37 | XMS_ITS | Encounter Summary ---
Author Organization [facility] Address [address] [place] [address] Care Team Providers Care Timber Cruiser Name Role Phone Mariya Grossman MD Primary Care Provider [phone] Source Comments In the event this information is protected by the Federal Confidentiality of Alcohol and Drug AbusePatient Records regulations: The Federal rules restrict any use of the information to criminally investigate or prosecute any alcohol or drug abuse patient.[facility] Encounter Details DateTypeDepartmentCare Team (Latest Contact Info)Yfvvirxndmm47/03/2025Orders Only Hematology/Oncology [address] [place] [address] [place] [address] Titus Taylor MD [address] [place] [address] [place] [address] Hereditary hemochromatosis (Primary Dx) Social History Tobacco UseTypesPacks/DayYears UsedDateSmoking Tobacco: GzhqepQpjazyhahx928 04/12/2000 - 04/12/2014Smokeless Tobacco: NeverAlcohol UseStandard Drinks/Week CommentsNo0 (1 standard drink = 0.6 oz pure alcohol)PHQ-2AnswerDate RecordedPHQ- 2 cofjy076/20/2025Area Deprivation IndexAnswerDate RecordedNational Score (1- 100), lower number is lower nqqs63423State Score (1-10), lower number is lower pzte1083Data from: https://www.neighborhoodatlas.medicine.[facility]/. Last address used for jme[address]3CommentsNoSex and Gender Information ValueDate RecordedSex Assigned at BirthNot on fileLegal VhrGsfmbe94/24/2017 4:07 PM ESTGender IdentityNot on fileSexual OrientationNot on filedocumented as of this encounter Functional Status * Are you deaf or do you have serious difficulty hearing?AnswerDate of CjtjffzxjyYkxwhfXx87/08/2017 1:49 PM Elayne Nunez APRN.BOOKKEEPERS SUPERVISOR * Are you blind or do you have serious difficulty seeing, even when wearing glasses?AnswerDate of CqllvdmpmcOqmzdoPh88/08/2017 1:49 PM Elayne Nunez APRN.BOOKKEEPERS SUPERVISOR * Do you have serious difficulty walking or climbing stairs?AnswerDate of PleaohvbtjQilqbuZs18/08/2017 1:49 PM Elayne Nunez APRN.BOOKKEEPERS SUPERVISOR * Do you have difficulty dressing or bathing?AnswerDate of AssessmentAuthorNo 12/18/2016 1:49 PM Elayne Nunez APRN.BOOKKEEPERS SUPERVISOR * Because of a physical, mental, or emotional condition, do you have difficulty doing errands alone such as visiting a doctor's office or shopping?AnswerDate of EisnqpysnvVhplhjNv99/08/2017 1:49 PM Elayne Nunez APRN.BOOKKEEPERS SUPERVISOR documented as of this encounter Mental Status * Because of a physical, mental, or emotional condition, do you have serious difficulty concentrating, remembering, or making decisions?AnswerEntry Date EpxhllEj07/08/2017 1:49 PM Elayne Nunez APRN.BOOKKEEPERS SUPERVISOR documented in this encounter Plan of Treatment DateTypeDepartmentCare Team (Latest Contact Info)Vzydrgpjduy27/09/2025 3:15 PM ESTOffice Visit [facility] [address] [place] [address] [place] [address] Phlebotomy and lab - q 2 weeks for 3 per mnahrht2903/20/2025 3:30 PM [facility] Hematology/Oncology [address] [place] [address] [place] [address] Phlebotomy and lab - q 2 weeks for 3 per abrhvab4703/29/2025 2:30 PM ESTOffice Visit [facility] [address] [facility] [place] [address] lab before phleb - lab needs drawn day or so prior to 3rd klhuisckye69/23/2025 3:30 PM [facility] Hematology/Oncology [address] [place] [address] [place] [address] Phlebotomy and lab (lab few days prior to 3rd phlebotomy)05/18/2025 8:30 AM [facility] [address] [place] [id number] Ela Marquis, GEOSPATIAL IMAGE ANALYST.BOOKKEEPERS SUPERVISOR [address] [place] [address] MyChart 90 day check in05/24/2025 2:45 PM ESTOffice Visit [facility] [address] [place] [address] [place] [address] 3 month follow up with lab05/24/2025 3:00 PM ESTVisit (SP) Office Hematology/Oncology [address] [place] [address] [place] [address] Nathaly Saucedo, GEOSPATIAL IMAGE ANALYST.[address] [place] [address] 3 month follow up with labdocumented as of this encounter Visit Diagnoses Diagnosis Hereditary hemochromatosis- Primary documented in this encounter Care Teams Team MemberRelationshipSpecialtyStart DateEnd Date Mariya Grossman MD [address] [place] [address] PCP - GeneralFamily Medicine05/12/16documented as of this encounter
--- OUTSIDE RECORDS SUMMARY | 2025-03-14 13:39 | XMS_ITS | CCD ---
Author Organization [facility] Care Team Providers Care Kitchen Designer Name Role Phone JANA, DR HALEY Admitting [...] Consulting Unavailable Mariya Prather Primary Care Provider [phone] Jorge BUNDY, Lakesha Brown Unavailable Mariya Prather MD Primary Care Provider Mariya Prather Primary Care Provider Mariya Prather MD Unavailable [phone] Palak Woodson LPN Unavailable [phone] MARIYA HUERTA Primary Care Unavailable Palak Lerma Attending Unavailable Palak Lerma Admitting Unavailable Karli, Nav Admitting Unavailable MARIYA HUERTA Primary Care Unavailable Kale Acevedo MD Consulting Unavailable Karli, Nav Attending Unavailable Refugio Sue Consulting Unavailable MARIYA HUERTA Primary Care Unavailable Refugio Sue Attending Unavailable Karli, Nav Admitting Unavailable MARIYA HUERTA Primary Care Unavailable Karli, Nav Attending Unavailable MARIYA PRATHER Primary Care Unavailable BENITEZ NICOLE Referring Unavailable Nam Pickens LPC Unavailable Unavailable Mariya Prather MD Primary [...] Referring Unavailable MARIYA PRATHER Primary Care Unavailable BRANDON TITUS Referring Unavailable MARIYA PRATHER Primary Care Unavailable Mariya Prather MD Primary Care Provider MARIYA PRATHER Referring Unavailable MARIYA PRATHER Primary Care Unavailable JOSEFINA CARRILLO Attending Unavailable MICK GARCIA Attending Unavailab MICK Shepherd Referring Unavailab MICK Shepherd Attending Unavailab NAM Sumner Attending Unavailable JOSEFINA CARRILLO Referring Unavailable JANINE, NAM Attending Unavailable DENISICKI, NAM Attending Unavailable MALICKI, NAM Attending Unavailable MALICKI, NAM Attending Unavailable MALICKI, NAM Attending Unavailable MALICKI, NAM Attending Unavailable MALICKI, NAM Attending Unavailable MALICKI, NAM Attending Unavailable MALICKI, NAM Attending Unavailable MALICKI, NAM Attending Unavailable MALICKI, NAM Attending Unavailable MALICKI, NAM Attending Unavailable MALICKI, NAM Attending Unavailable MALICKI, NAM Attending Unavailable MALICKI, NAM Attending Unavailable MALICKI, NAM Attending Unavailable BORALUCRECIA DELGADO Attending Unavailable MALICKI, NAM Attending Unavailable MALICKI, NAM Attending Unavailable MALICKI, NAM Attending Unavailable Medications Current Medications MedicationDrug Class(es)DatesSig (Normalized)Sig (Original)amoxicillin 875 mg / clavulanate 125 mg oral tablet (7 sources)Penicillin-class AntibacterialStart: 05-10-2024 End: 94-00-5089ijnx 1 tablet by mouth in the morningamoxicillin-clavulanate (Augmentin) 875-125 MG tablet Indications: Acute non-recurrent pansinusitisTake 1 tablet (875 mg) by mouth in the morning and 1 tablet (875 mg) before bedtime. Do all this for 10 days. 20 tablet 05/10/2024 05/20/2024 ActiveStart: 02-07-2024 End: 39-67-0233lufs 1 tablet by mouth in the morningamoxicillin-clavulanate (Augmentin) 875-125 MG tablet Indications: Acute left otitis media Take 1 tablet (875 mg) by mouth in the morning and 1 tablet (875 mg) before bedtime. Do all this for 7 days.14 tablet 02/07/2024 02/15/2024 Discontinued (Therapy completed) aspirin 81 mg chewable tablet (1 source)Platelet Aggregation Inhibitor, Nonsteroidal Anti-inflammatory Drug aspirin 81 mg chewable tablet Chew 81 mg and swallow daily. Activeazelastine hydrochloride 0.137 mg/actuat metered dose nasal spray (2 sources)Histamine-1 Receptor AntagonistStart: 05-19-2023 End: 68-96-2912uete 1 spray(s) nasal route in the morningAzelastine HCl 137 MCG/SPRAY solution Indications: Nasal congestion Administer 1 spray into affected nostril(s) in the morning. 30 mL 0 05/19/2023 06/18/2023 Active azithromycin 250 mg oral tablet (3 sources)Macrolide AntimicrobialStart: 06-15-2024 End: 20-71-0064ltrg 2 tablets by mouth once daily, then take 1 tablet by mouth once dailyazithromycin (Zithromax) 250 MG tablet Indications: Upper respiratory tract infection, unspecified type Take 2 tablets (500 mg) by mouth Daily for 1 day, THEN 1 tablet (250 mg) Daily for 4 days. 6 tablet 06/15/2024 06/20/2024 Activebenzonatate 100 mg oral capsule (4 sources)Non-narcotic AntitussiveStart: 02-08-2024 End: 59-00-7350iedl 1 capsule by mouth three times daily as needed for cough benzonatate (Tessalon Perles) 100 MG capsule Indications: Bronchitis Take 1 capsule (100 mg) by mouth 3 (three) times a day as needed for cough for up to 7 days Do not crush or chew. 20 capsule 02/08/2024 02/15/2024 Discontinued (Therapy completed)calcium polycarbophil (20 sources) End: 32-67-6826aykg 1 tablet by mouth once dailypolycarbophil (Fibercon) 625 MG tablet Take by mouth Daily 05/10/2024 Discontinuedcalcium polycarbophil (FIBERCON ORAL) Take by mouth. ActiveEthinyl Estradiol / Levonorgestrel (20 sources)Progestin, Estrogen, Progestin-containing Intrauterine DeviceStart: 52-50-7748lets 1 tablet by mouth in the morningL norgest/e.estradiol-e.estrad (Seasonique) 0.15-0.03 &0.01 MG tablet tablet Indications: Uses control Take 1 tablet by mouth in the morning. 91 tablet 3 01/22/2025 ActiveStart: 12-27-2024 End: 65-06-6434xzdc 1 tablet by mouth once daily in the morningL norgest/e.estradiol-e.estrad (Seasonique) 0.15-0.03 &0.01 MG tablet tablet Indications: Uses control TAKE 1 TABLET BY MOUTH EVERY DAY IN THE MORNING 91 tablet 3 12/27/2024 01/22/2025 Discontinued (Reorder)Start: 18-40-9438lzpe 1 tablet by mouth once daily in the morningL norgest/e.estradiol-e.estrad (Seasonique) 0.15-0.03 &0.01 MG tablet tablet Indications: Uses control TAKE 1 TABLET BY MOUTH EVERY DAY IN THE MORNING 91 tablet 3 12/27/2024 Active Start: 06-87-8327utpa 1 tablet by mouth in the morningL norgest/e.estradiol- e.estrad (Ashlyna) 0.15-0.03 &0.01 MG tablet tablet Indications: Uses control Take 1 tablet by mouth in the morning. 91 tablet 12/01/2024 ActiveStart: 57-84-5604fbhn 1 tablet by mouth in the morningL norgest/e.estradiol-e.estrad (Ashlyna) 0.15-0.03 &0.01 MG tablet tablet Indications: Uses control Take 1 tablet by mouth in the morning. 91 tablet 3 12/01/2023 ActiveStart: 03-31-2023 End: 28-58-3723ivbn 1 tablet by mouth in the morningAshlyna 0.15-0.03 &0.01 MG tablet tablet Indications: Uses control Take 1 tablet by mouthin the morning. 91 tablet 0 03/31/2023 06/30/2023 Activetake 1 tablet by mouth once dailyL norgest/e.estradioL-e.estrad (AMETHIA) 0.15 mg-30 mcg (84)/10 mcg (7) tablets,dose pack,3 month Take 1 tablet by mouth daily. Activefamotidine 20 mg oral tablet (3 sources)Histamine-2 Receptor Antagonisttake 1 tablet by mouth once daily famotidine (PEPCID) 20 mg tablet Take 20 mg by mouth daily. Activefluconazole 150 mg oral tablet (20 sources)Azole AntifungalStart: 02-20-2025 End: 32-16-1900hrlz 1 tablet by mouth oncefluconazole (Diflucan) 150 MG tablet Indications: Candidiasis Take 1 tablet (150 mg) by mouth 1 (one) time for 1 dose 1 tablet 02/20/2025 02/20/2025 ActiveStart: 02-15-2024 End: 37-76-6623buoajmgaphm (Diflucan) 150 MG tablet Indications: Antibiotic- induced yeast infection Take 1 tablet once; may repeat in 72 hours if symptoms are not improved 2 tablet 02/15/2024 01/22/2025 Discontinued (Therapy completed) Start: 12-24-2023 End: 04-54-0374idtk 1 tablet by mouth oncefluconazole (Diflucan) 150 MG tablet Indications: Candidiasis Take 1 tablet (150 mg) by mouth 1 (one) time for 1 dose 1 tablet 12/24/2023 12/24/2023 ActiveL-NORGEST/E.ESTRADIOL-E.ESTRAD (AMETHIA ORAL) (20 sources)take 1 tablet by mouth once dailyL-NORGEST/E.ESTRADIOL-E.ESTRAD (AMETHIA ORAL) Take 1 tablet by mouth once daily. Activetake 1 tablet by mouth once dailyL-NORGEST/E.ESTRADIOL-E.ESTRAD (AMETHIA ORAL) Take 1 tablet by mouth once daily. 0 ActiveComment on above:Take 1 tablet by mouth once daily. Lactobacillus acidophilus (20 sources)Lactobacillus acidophilus (PROBIOTIC ORAL) Take by mouth. Active loratadine 10 mg oral tablet (8 sources) End: 25-88-1786wjzx 1 tablet by mouth once dailyloratadine (CLARITIN) 10 mg tablet Take 10 mg by mouth daily. ActiveComment on above:Take 10 mg by mouth once daily.Multiple Vitamin (MULTI VITAMIN PO) (20 sources)Multiple Vitamin (MULTI VITAMIN PO) Take by mouth ActiveMultiple Vitamin (MULTI VITAMIN PO) Take by mouth 0 Activemultivit-min/iron/folic/mpk539 (HAIR, SKIN AND NAILS ADVANCED ORAL) (20 sources)multivit-min/iron/folic/bry061 (HAIR, SKIN AND NAILS ADVANCED ORAL) Take by mouth. ActiveMULTIVITAMIN ORAL (20 sources)MULTIVITAMIN ORAL Take by mouth. Activenystatin 100 unt/mg topical powder (5 sources)Polyene AntifungalStart: 12-01-2023 End: 03-94-4898whvhpcvb (Mycostatin) 891978 UNIT/GM powder Indications: Antibiotic-induced yeast infection Apply topically Daily 60 g 12/01/2023 12/31/2023 ActiveStart: 02-03-2023 End: 96-51-3941yoefhlwa (NYSTOP) powder Apply 1 application to affected area two times a day. 60 g 2 02/03/2023 03/05/2023 ActiveComment on above:Apply 1 application to affected area two times a day.omeprazole 20 mg delayed release oral capsule (20 sources)Proton Pump InhibitorStart: 02-03-2023 End: 20-38-9908pkza 1 capsule by mouth once dailyomeprazole (PRILOSEC) 20 mg capsule Take 1 capsule by mouth once daily. 30 capsule 2 04/10/2024 Active Comment on above:Take 1 capsule by mouth once daily.TAKE 1 CAPSULE ONCE DAILY ondansetron 4 mg disintegrating oral tablet (20 sources)Serotonin-3 Receptor AntagonistStart: 10-02-2024 End: 30-26-7567zuvv 1 tablet by mouth every eight hours as needed for obesity and obesityondansetron orally disintegrating (ZOFRAN ODT) 4 mg disintegrating tablet Indications: Class 1 obesity with body mass index (BMI) of 32.0 to 32.9 in adult, unspecified obesity type, unspecified whether serious comorbidity present Take 1 tablet by mouth every 8 hours as needed for nausea/vomiting. 10 tablet 2 12/21/2024 ActiveStart: 07-06-2023 End: 73-72-0661ekkt 1 tablet by mouth every six hours as needed for obesity and obesityondansetron (ZOFRAN) 4 mg tablet Indications: Class 1 obesity with body mass index (BMI) of 32.0 to32.9 in adult, unspecified obesity type, unspecified whether serious comorbidity present TAKE 1 TABLET BY MOUTH EVERY 6 HOURS NEEDED 18 tablet 1 09/08/2024 12/21/2024 DiscontinuedStart: 04-07-2023 End: 53-16-0038yifc 1 tablet by mouth every six hours as neededondansetron (ZOFRAN) 4 mg tablet TAKE 1 TABLET EVERY 6 HOURSAS NEEDED 18 tablet 1 04/07/2023 07/05/2023 DiscontinuedStart: 01-15-2017 End: 76-19-8958izwr 1 tablet by mouth once daily as neededondansetron (ZOFRAN, HYDROCHLORIDE,) 4 mg tablet Take 1 tablet by mouth once daily as needed. 20 tablet 2 01/15/2017 10/28/2022 Discontinued (Course of therapy completed)Start: 01-11-2017 End: 51-03-4929ioea 1 tablet by mouth every six hours as neededondansetron (ZOFRAN) 4 mg tablet Take 1 tablet by mouth every 6 hours as needed. 30 tablet 1 02/03/2023 Activetake 1 tablet by mouth every six hours as needed for nausea and vomitingondansetron ODT (ZOFRAN-ODT) 4 mg disintegrating tablet Dissolve 4 mg on tongue every 6 (six) hoursas needed for nausea or vomiting. ActiveComment on above:Take 1 tablet by mouth once daily as needed.Take 1 tablet by mouth every 6 hours as needed.TAKE 1 TABLET EVERY 6 HOURSAS NEEDEDphentermine hydrochloride 37.5 mg oral tablet (20 sources)Sympathomimetic Amine AnorecticStart: 10-28-2022 End: 11-62-3343ekfr 1 tablet by mouth in the morning, then take 0.5 tablet by mouth once dailyphentermine (Adipex-P) 37.5 MG tablet Take 37.5 mg by mouth in the morning. Half a tablet daily. 10/28/2022 ActiveComment on above:Take 1 tablet by mouth once daily for 90 days.predniSONE 10 mg oral tablet (7 sources)Start: 02-07-2024 End: 49-03-2694cgas 1 tablet by mouth in the morningpredniSONE (Deltasone) 10 MG tablet Indications: Wheezing Take 1 tablet (10 mg) by mouth in the morning and 1 tablet (10 mg) before bedtime. Do all this for 3 days. 6 tablet 02/07/2024 02/15/2024 Discontinued (Therapy completed)Start: 05-19-2023 End: 03-66-9578myho 1 tablet by mouth in the morningpredniSONE (Deltasone) 10 MG tablet Indications: Nasal congestion Take 1 tablet (10 mg) by mouth inthe morning and 1 tablet (10 mg) before bedtime. Do all this for 3 days. 6 tablet 0 05/19/2023 05/22/2023 Activeprenatal no115/iron/folic acid ( 19 ORAL) (1 source)take 1 tablet by mouth once dailyprenatal no115/iron/folic acid ( 19 ORAL) Take 1 tablet by mouth daily. ActiveProbiotic Product (PRO- BIOTIC BLEND PO) (20 sources)Probiotic Product (PRO-BIOTIC BLEND PO) Take by mouth Active Probiotic Product (PRO-BIOTIC BLEND PO) Take by mouth 0 Activepromethazine hydrochloride 12.5 mg oral tablet (1 source)Phenothiazinetake 1 tablet by mouth every six hours as needed for nausea and vomitingpromethazine (PHENERGAN) 12.5 mg tablet Take 12.5 mg by mouth every 6 (six) hours as needed for nausea or vomiting. Qcxuzm49 hr scopolamine 0.0139 mg/hr transdermal system (1 source)AnticholinergicStart: 01-15-2017 End: 81-62-1778kakujdgllvk (TRANSDERM-SCOP) 1 mg over 3 days Apply 1 Patch as directed every 72 hours. 4 Patch 0 01/15/2017 10/28/2022 Discontinued (Course of therapy completed)Comment on above:Apply 1 Patch as directed every 72 hours. semaglutide, weight loss, (WEGOVY) 2.4 mg/0.75 mL pen injector (20 sources)Start: 12-08-2024 End: 64-72-6636nbykqk 2.4 mg by subcutaneous injection every weeksemaglutide, weight loss, (WEGOVY) 2.4 mg/0.75 mL pen injector Indications: History of obesity Inject 2.4 mg subcutaneously one time a week. 3 mL 2 12/08/2024 03/02/2025 ActiveStart: 09-07-2023 End: 20-92-6517wtbxzp 0.75 mL by subcutaneous injection every weeksemaglutide, weight loss, (WEGOVY) 2.4 mg/0.75 mL pen injector Inject 0.75 mL subcutaneously one time a week. Patient should start on September 07, 2023. 9 mL 3 09/07/2023 01/26/2024 Discontinued (ChangingTherapy/Dosage Form)Start: 09-07-2023 End: 80-42-9354qczule 0.75 mL by subcutaneous injection every weeksemaglutide, weight loss, (WEGOVY) 2.4 mg/0.75 mL pen injector Inject 0.75 mL subcutaneously one time a week. Patient should start on September 07, 2023. 9 mL 3 09/07/2023 09/06/2024 ActiveStart: 92-23-6304gmozhk 0.75 mL by subcutaneous injection every weeksemaglutide, weight loss, (WEGOVY) 2.4 mg/0.75 mL pen injector Inject 0.75 mL subcutaneously one time a week. 9 mL 0 03/03/2023 ActiveStart: 03-03-2023 End: 14-93-6076sgazkd 0.75 mL by subcutaneous injection every weeksemaglutide, weight loss, (WEGOVY) 2.4 mg/0.75 mL pen injector Inject 0.75 mL subcutaneously one time a week. 9 mL 0 03/03/2023 05/26/2023 ActiveStart: 12-22-2022 End: 14-38-9258bqyujx 0.75 mL by subcutaneous injection every weeksemaglutide, weight loss, (WEGOVY) 2.4 mg/0.75 mL pen injector Inject 0.75 mL subcutaneously one time a week. 9 mL 1 12/22/2022 12/29/2022 DiscontinuedStart: 12-22-2022 End: 41-69-4553mbuuek 0.75 mL by subcutaneous injection every weeksemaglutide, weight loss, (WEGOVY) 2.4 mg/0.75 mL pen injector Inject 0.75 mL subcutaneously one time a week. 3 mL 2 12/22/2022 11/24/2022 DiscontinuedStart: 12-22-2022 End: 30-17-8390iyptfd 0.75 mL by subcutaneous injection every weeksemaglutide, weight loss, (WEGOVY) 2.4 mg/0.75 mL pen injector Inject 0.75 mL subcutaneously one time a week. 9 mL 1 12/22/2022 06/08/2023 ActiveComment on above:Inject 0.75 mL subcutaneously one time a week.tirzepatide, weight loss (ZEPBOUND) 7.5 mg/0.5 mL pen injector (20 sources)Start: 12-03-2023 End: 16-61-5678zeglpjhuaxe, weight loss (ZEPBOUND) 7.5 mg/0.5 mL pen injector Indications: Class 1 obesity with body mass index (BMI) of 32.0 to 32.9 in adult, unspecified obesity type, unspecified whether serious comorbidity present Inject 7.5 mg subcutaneously one time a week. 2 mL 5 12/03/2023 05/31/2024 ActiveStart: 10-06-2023 End: 05-53-2724npgxhezjysf, weight loss (ZEPBOUND) 7.5 mg/0.5 mL pen injector Indications: Class 1 obesity with body mass index (BMI) of 32.0 to 32.9 in adult, unspecified obesity type, unspecified whether serious comorbidity present Inject 7.5 mg subcutaneously one time a week. 2 mL 5 10/06/2023 12/03/2023 DiscontinuedStart: 10-06-2023 End: 07-68-4404gnkneapqzrf, weight loss (ZEPBOUND) 7.5 mg/0.5 mL pen injector Indications: Class 1 obesity with body mass index (BMI) of 32.0 to 32.9 in adult, unspecified obesity type, unspecified whether serious comorbidity present Inject 7.5 mg subcutaneously one time a week. 2 mL 5 10/06/2023 04/03/2024 ActiveTirzepatide-Weight Management (Zepbound) 7.5 MG/0.5ML solution auto-injector (14 sources)Start: 10-06-2023 End: 95-41-6454atiwac 7.5 mg by subcutaneous injection every weekTirzepatide- Weight Management (Zepbound) 7.5 MG/0.5ML solution auto-injector Inject 7.5 mg under the skin once a week 10/06/2023 04/03/2024 ActiveTirzepatide-Weight Management 12.5 MG/0.5ML solution auto-injector (20 sources)Start: 70-30-4928Gcgdrrpmxel-Weight Management 12.5 MG/0.5ML solution auto-injector 03/31/2024 ActiveWegovy 1.7 MG/0.75ML solution auto-injector (15 sources)Start: 02-03-2023 End: 93-81-7461Uqmsxh 1.7 MG/0.75ML solution auto-injector 02/03/2023 02/15/2024 Discontinued (Therapy completed)Start: 92-74-7927Jgczds 1.7 MG/0.75ML solution auto-injector 02/03/2023 ActiveStart: 75-58-8963Kseent 1.7 MG/0.75ML solution auto-injectorZepbound 10 MG/0.5ML solution auto-injector (3 sources)Start: 43-04-5022mknxuw 10 mg by subcutaneous injection every week Zepbound 10 MG/0.5ML solution auto-injector INJECT 10 MG SUBCUTANEOUSLY ONE TIME PER WEEK 03/31/2024 Active Completed/Discontinued Medications MedicationDrug Class(es)DatesSig (Normalized)Sig (Original)acetaminophen 500 mg oral tablet (7 sources) End: 54-89-1576vvsz 1 tablet by mouth every eight hours as neededacetaminophen (TYLENOL) 500 mg tablet Take 500 mg by mouth every 8 hours as needed. 0 02/03/2023 Discontinued (Discontinued by Patient)Comment on above:Take 500 mg by mouth every 8 hours as needed.albuterol 0.83 mg/ml inhalation solution (18 sources)beta2-Adrenergic AgonistStart: 02-15-2024 End: 33-86-3956snghprqzj (2.5 MG/3ML) 0.083% nebulizer solution Indications: Pneumonia of right lower lobe due to infectious organism Take 3 mL (2.5 mg) by nebulization every 6 (six) hours if needed for wheezing 75mL 1 02/15/2024 05/10/2024 DiscontinuedStart: 02-07-2024 End: 49-52-8894ugcx 2 puff(s) by inhalation every four hours for wheezing albuterol HFA 90 mcg/act inhaler Indications: Wheezing Inhale 2 puffs every 4 (four) hours if needed for wheezing 18 g 02/07/2024 05/10/2024 Discontinued levoFLOXacin 750 mg oral tablet (8 sources)Quinolone Antimicrobial End: 53-87-3218teogHJLSsjms (Levaquin) 750 MG tablet Take by mouth 05/10/2024 DiscontinuedmetFORMIN hydrochloride 500 mg oral tablet (7 sources)BiguanideStart: 10-28-2022 End: 43-55-2810phbl 1 tablet by mouth once daily at dinnermetFORMIN (GLUCOPHAGE) 500 mg tablet Take 1 tablet by mouth daily with dinner. 180 tablet 1 10/28/2022 02/03/2023 Discontinued (Discontinued by Patient)Comment on above:Take 1 tablet by mouth daily with dinner.oxyCODONE hydrochloride 1 mg/ml oral solution (7 sources)Opioid AgonistStart: 12-18-2016 End: 01-37-8415lxbk 5-10 mg by mouth every four hours as neededoxyCODONE (ROXICODONE) 5 mg/5 mL oral solution Take 5-10 mL by mouth every 4 hours as needed. 210 mL 0 12/18/2016 02/03/2023 Discontinued (Course of therapy completed)Comment on above:Take 5-10 mL by mouth every 4 hours as needed. semaglutide, weight loss, (WEGOVY) 0.5 mg/0.5 mL pen injector (6 sources)Start: 12-29-2022 End: 65-14-0940wpopsk 0.5 mL by subcutaneous injection every weeksemaglutide, weight loss, (WEGOVY) 0.5 mg/0.5 mL pen injector Inject 0.5 mL subcutaneously one timea week for 28 days. 2 mL 0 12/29/2022 02/03/2023 Discontinued (Changing Therapy/Dosage Form)Start: 35-99-4686wriyxo 0.5 mL by subcutaneous injection every weeksemaglutide, weight loss, (WEGOVY) 0.5 mg/0.5 mL pen injector Inject 0.5 mL subcutaneously one timea week for 28 days. 2 mL 0 12/29/2022 ActiveStart: 12-29-2022 End: 89-63-9149locsoz 0.5 mL by subcutaneous injection every weeksemaglutide, weight loss, (WEGOVY) 0.5 mg/0.5 mL pen injector Inject 0.5 mL subcutaneously one timea week for 28 days. 2 mL 0 12/29/2022 01/26/2023 ActiveStart: 12-21-2022 End: 67-90-2122jdjzil 0.5 mL by subcutaneous injection every weeksemaglutide, weight loss, (WEGOVY) 0.5 mg/0.5 mL pen injector Inject 0.5 mL subcutaneously one timea week for 28 days. 2 mL 0 12/21/2022 12/29/2022 DiscontinuedStart: 12-21-2022 End: 65-93-9219qhrbdy 0.5 mL by subcutaneous injection every weeksemaglutide, weight loss, (WEGOVY) 0.5 mg/0.5 mL pen injector Inject 0.5 mL subcutaneously one timea week for 28 days. 2 mL 0 12/21/2022 01/18/2023 ActiveComment on above: Inject 0.5 mL subcutaneously one time a week for 28 days.semaglutide, weight loss, (WEGOVY) 1 mg/0.5 mL pen injector (6 sources)Start: 01-26-2023 End: 04-65-0423zgxegl 0.5 mL by subcutaneous injection every weeksemaglutide, weight loss, (WEGOVY) 1 mg/0.5 mL pen injector Inject 0.5 mL subcutaneously one time aweek for 28 days. 2 mL 0 01/26/2023 02/03/2023 Discontinued (Changing Therapy/Dosage Form)Start: 01-26-2023 End: 90-13-0785nhknas 0.5 mL by subcutaneous injection every weeksemaglutide, weight loss, (WEGOVY) 1 mg/0.5 mL pen injector Inject 0.5 mL subcutaneously one time aweek for 28 days. 2 mL 0 01/26/2023 02/23/2023 ActiveStart: 12-21-2022 End: 47-41-9704yuollm 0.5 mL by subcutaneous injection every weeksemaglutide, weight loss, (WEGOVY) 1 mg/0.5 mL pen injector Inject 0.5 mL subcutaneously one time aweek for 28 days. 2 mL 0 12/21/2022 12/29/2022 DiscontinuedStart: 12-21-2022 End: 69-86-5917dbphij 0.5 mL by subcutaneous injection every weeksemaglutide, weight loss, (WEGOVY) 1 mg/0.5 mL pen injector Inject 0.5 mL subcutaneously one time aweek for 28 days. 2 mL 0 12/21/2022 01/18/2023 ActiveComment on above: Inject 0.5 mL subcutaneously one time a week for 28 days.semaglutide, weight loss, (WEGOVY) 1.7 mg/0.75 mL pen injector (20 sources)Start: 10-02-2024 End: 60-83-8469ohcafs 1.7 mg by subcutaneous injection every weeksemaglutide, weight loss, (WEGOVY) 1.7 mg/0.75 mL pen injector Indications: History of obesity , S/P laparoscopic sleeve gastrectomy , PCOS (polycystic ovarian syndrome) , Mild obstructive sleep apnea Inject 1.7 mg subcutaneously one time a week. 3 mL 2 10/02/2024 12/08/2024 Discontinued (Changing Therapy/Dosage Form) Start: 10-02-2024 End: 24-05-9860rbanys 1.7 mg by subcutaneous injection every weeksemaglutide, weight loss, (WEGOVY) 1.7 mg/0.75 mL pen injector Indications: History of obesity , S/P laparoscopic sleeve gastrectomy , PCOS (polycystic ovarian syndrome) , Mild obstructive sleep apnea Inject 1.7 mg subcutaneously one time a week. 3 mL 2 10/02/2024 12/25/2024 ActiveStart: 08-17-2023 End: 93-53-6774szfwzkqqhtn, weight loss, (WEGOVY) 1.7 mg/0.75 mL pen injector Indications: Class 1 obesity with body mass index (BMI) of 32.0 to 32.9 in adult, unspecified obesity type, unspecified whether serious comorbidity present Inject 0.75 mL subcutaneously one time a week. 3 mL 08/17/2023 01/26/2024 Discontinued (Changing Therapy/Dosage Form)Start: 45-68-1142obkyhpnftzy, weight loss, (WEGOVY) 1.7 mg/0.75 mL pen injector Indications: Class 1 obesity with bod y mass index (BMI) of 32.0 to 32.9 in adult, unspecified obesity type, unspecified whether serious comorbidity present Inject 0.75 mL subcutaneously one time a week. 3 mL 08/17/2023 ActiveStart: 08-17-2023 End: 94-03-6068opyigyhavac, weight loss, (WEGOVY) 1.7 mg/0.75 mL pen injector Indications: Class 1 obesity with body mass index (BMI) of 32.0 to 32.9 in adult, unspecified obesity type, unspecified whether serious comorbidity present Inject 0.75 mL subcutaneously one time a week. 3 mL 0 08/17/2023 11/15/2023 ActiveStart: 08-10-2023 End: 73-01-4061uszgzppbhba, weight loss, (WEGOVY) 1.7 mg/0.75 mL pen injector Indications: Class 1 obesity with body mass index (BMI) of 32.0 to 32.9 in adult, unspecified obesity type, unspecified whether serious comorbidity present Inject 0.75 mL subcutaneously one time a week. 3 mL 2 08/10/2023 11/08/2023 ActiveStart: 07-06-2023 End: 19-03-9547hyagugeoauv, weight loss, (WEGOVY) 1.7 mg/0.75 mL pen injector Indications: Class 1 obesity with body mass index (BMI) of 32.0 to 32.9 in adult, unspecified obesity type, unspecified whether serious comorbidity present Inject 0.75 mL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 47291-8 #### [facility] IA [id number] [address] [place] [address] [place] AMERICAImmature granulocytes/100 WBC (Bld)0.1 % NormalAv HospitalComment on above:Order Comment: Specimen Type: BLOOD SPECIMEN Ordering Facility: [facility] Address: [address] [place], [place] [address]Performed By: #### 07026-1 #### [facility] IA [id number] [address] [place] [address] [place] AMERICALymphocytes (Bld) [#/Vol]2.86 10*3/uL Normal1.00-4.00Av HospitalComment on above:Order Comment: Specimen Type: BLOOD SPECIMEN Ordering Facility: [facility] Address: [address] [place], [place] [address]Performed By: #### 01449-9 #### [facility] IA [id number] [address] [place] [address] [place] AMERICALymphocytes/100 WBC (Bld)37.3 %NormalAv HospitalComment on above:Order Comment: Specimen Type: BLOOD SPECIMEN Ordering Facility: [facility] Address: [address] [place], [place] [address]Performed By: #### 02667-7 #### [facility] CLIA [id number] [address] [place], [place] [id number] [place] [address] (RBC) [Entitic mass]30.5 pgNormal 26.0-34.0Av HospitalComment on above:Order Comment: Specimen Type: BLOOD SPECIMEN Ordering Facility: [facility] Address: [address] [place], [place] [address]Performed By: #### 66275-8 #### [facility] IA [id number] [address] [place], [place] [id number] [place], [place] [address]HC (RBC) [Mass/Vol]34.0 g/dLNormal 30.5-36.0Av HospitalComment on above:Order Comment: Specimen Type: BLOOD SPECIMEN Ordering Facility: [facility] Address: [address] [place], [place] [address]Performed By: #### 97396-6 #### [facility] IA [id number] [address] [place] [address] [facility] (RBC) [Entitic vol]90.0 fLNormal 80.0-100.0Av HospitalComment on above:Order Comment: Specimen Type: BLOOD SPECIMEN Ordering Facility: [facility] Address: [address] [place], [place] [address]Performed By: #### 14341-4 #### [facility] IA [id number] [address] [place], [place] [address] [place], [place] [address]Monocytes (Bld) [#/Vol]0.37 10*3/uLNormal <0.87Av HospitalComment on above:Order Comment: Specimen Type: BLOOD SPECIMEN Ordering Facility: [facility] Address: [address] [place], [place] [address]Performed By: #### 22413-7 #### [facility] CLIA [id number] [address] [place] [address] [place] AMERICAMonocytes/100 WBC (Bld)4.8 %NormalAv HospitalComment on above:Order Comment: Specimen Type: BLOOD SPECIMEN Ordering Facility: [facility] Address: [address] [place], [place] [address]Performed By: #### 83218-5 #### [facility] IA [id number] [address] [place] [address] [place] AMERICANeutrophils (Bld) [#/Vol]4.17 10*3/uL Normal1.45-7.50Av HospitalComment on above:Order Comment: Specimen Type: BLOOD SPECIMEN Ordering Facility: [facility] Address: [address] [place], [place] [address]Performed By: #### 40111-7 #### [facility] IA [id number] [address] [place] [address] [place] AMERICANeutrophils/100 WBC (Bld)54.4 %NormalAv HospitalComment on above:Order Comment: Specimen Type: BLOOD SPECIMEN Ordering Facility: [facility] Address: [address] [place], [place] [address]Performed By: #### 92939-0 #### [facility] IA [id number] [address] [place] [address] [place] AMERICANucleated RBC (Bld) [#/Vol]10*3/uLNormal <0.01Av HospitalComment on above:Order Comment: Specimen Type: BLOOD SPECIMEN Ordering Facility: [facility] Address: [address] [place], [place] [address]Performed By: #### 53204-6 #### [facility] IA [id number] [address] [place] [address] [place] AMERICANucleated RBC/100 WBC (Bld) [Ratio]0.0 /100 WBCNormalAvon HospitalComment on above:Order Comment: Specimen Type: BLOOD SPECIMEN Ordering Facility: [facility] Address: [address] [place], [place] [address]Performed By: #### 26906-1 #### [facility] IA [id number] [address] [place] [place] [address] [place] AMERICAPlatelet mean volume (Bld) [Entitic vol] 9.3 fLNormal9.0-12.7Avon HospitalComment on above:Order Comment: Specimen Type: BLOOD SPECIMEN Ordering Facility: [facility] Address: [address] [place], [place] [address]Performed By: #### 90947-3 #### [facility] IA [id number] [address] [place] [address] [place] AMERICAPlatelets (Bld) [#/Vol]284 10*3/uLNormal 150-400Av HospitalComment on above:Order Comment: Specimen Type: BLOOD SPECIMEN Ordering Facility: [facility] Address: [address] [place], [place] [address]Performed By: #### 65278-8 #### [facility] IA [id number] [address] [place] [place] [address] [place] [facility] AMERICARBC (Bld) [#/Vol]4.78 10*6/uLNormal 3.90-5.20Av HospitalComment on above:Order Comment: Specimen Type: BLOOD SPECIMEN Ordering Facility: [facility] Address: [address] [place], [place] [address]Performed By: #### 67754-1 #### [facility] IA [id number] [address] [facility] [place] [address] [place] [facility] DAYTONWBC (Bld) [#/Vol]7.67 10*3/uLNormal 3.70-11.00Av HospitalComment on above:Order Comment: Specimen Type: BLOOD SPECIMEN Ordering Facility: [facility] Address: [address] [place], [place] [address]Performed By: #### 48791-2 #### [facility] IA [id number] [address] [place] [address] [facility]ALTHCCF CBC W AUTO DIFF BLDon [id number] BASOPHILS # BLD AUTO0.06NISaint [facility] DIFFERENTIAL METHOD BLDAutoNOMS [facility] Health SystemF EOSINOPHIL # BLD AUTO0.2NINFNOCenterpoint Medical CenterF LYMPHOCYTES # BLD AUTO2.86NOCenterpoint Medical CenterF MONOCYTES # BLD AUTO0.37NINFSaint Mary's Health CenterF NEUTROPHILS # BLD AUTO4.17NOCenterpoint Medical CenterF NRBC # BLD AUTO<0.01NINFSaint Mary's Health CenterF NRBC/100 WBC BLD-RTO0/100 WBCCoxHealth PLATELET # BLD [id number] PMV BLD AUTO9.3 fL9.0 - 12.7 fLCoxHealth WBC # BLD AUTO7.67NOChristian Hospital GRANULOCYTES # BLD AUTO<0.03NIEmerald-Hodgson Hospital GRANULOCYTES/LEUK NFR BLD AUTO0.1 %NOMS HealthcareSpecimen Type: BLOOD SPECIMEN Ordering Facility: [facility] Address: [address] [place] [address] Original Ordering Provider: NICOLE Odell [id number] Visit (BMIRESalma) ALLAN BURR ([id number]) 1985 F Date Time Provider Department 10/02/24 11:30 AM NICOLE MARQUIS During your visit today, we recorded the following information about you: Pulse Blood pressure Weight Height 88/minute 127/86 73.5 kg 1.705 m Last Period 07/11/24 Nicole Marquis APRN.OPTOMETRIST ASSISTANT 10/25/2024 4:25 PM Addendum BMI Obesity Medicine PostOp Follow Up Visit [facility] Visit October 25, 2024 Recording using ambient Generaytor software for draft documentation of the visit was discussed with the patient/authorized medical collections representative; all questions welcomed and answered. Patient/authorized medical collections representative agreed to proceed I have communicated my name and active licensure. The patient's identity and physical location were verified at the time of this visit. Either the patient or their legal medical collections representative has been informed of the risks [...] ulcers, Compliant w/ bariatric vitamins. 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 - Allan has a box of Wegovy in the refrigerator; unsure of the dose. - History of mild sleep apnea; last sleep study was in 2017 before sleeve surgery. Iron Levels: - Iron levels have been high; last check was normal. - Taking iron-free vitamins. 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 Doing well. Less side effects with Zepbound. Weight is decreased since last visit. AOM Hx: Was going to a [employer] [facility] and getting semaglutide injections, but it [...] Calcium: No Multivitamin AN (more content not included)...NormalAultman Hospital Comprehensive metabolic 2000 panelon 41-60-7930Xmtbjdm [Mass/Vol]4.1 g/dL3.9 - 4.9 g/dLSanta Margarita ClinicALP [Catalytic activity/Vol]75 U/L34 - 123 U/LCleveland ClinicALT [Catalytic activity/Vol]12 U/L7 - 38 U/LCleveland ClinicAnion gap [Moles/Vol]11 mmol/L8 - 15 mmol/LCleveland ClinicAST [Catalytic activity/Vol]19 U/L13 - 35 U/LCleveland ClinicBilirubin [Mass/Vol]0.4 mg/dL0.2 - 1.3 mg/dL [facility] ClinicCalcium [Mass/Vol]8.5 mg/dL8.5 - 10.2 mg/dLCenterville Chloride [Moles/Vol]104 mmol/L98 - 107 mmol/LCleveland ClinicCO2 [Moles/Vol]23 mmol/L22 - 30 mmol/LCleveland ClinicCreatinine [Mass/Vol]0.63 mg/dL0.58 - 0.96 mg/dLCentervilleGFR/1.73 sq M.predicted among non-blacks MDRD (S/P/Bld) [Vol rate/Area]115 mL/min/{1.73_m2}- PINFCLancaster Municipal HospitalComment on above: Estimated Glomerular Filtration Rate (eGFR) is calculated using the 2020 CKD-EPI creatinine equation. This equation utilizes serum creatinine, sex, and age as parameters. The creatinine assay has traceable calibration to isotope dilution- mass spectrometry. Refer to KDIGO guidelines for clinical interpretation. In patients with unstable renal function, e.g. those with acute kidney injury, the eGFRmay not accurately reflect actual GFR.Glucose [Mass/Vol]82 mg/dL74 - 99 mg/dLCentervilleComment on above:The [place] Diabetes Association (ADA) provides guidance for cutoff values for fasting glucose andrandom glucose. The ADA defines fasting as no caloric intake for at least 8 hours. Fasting plasma gl ucose results between 100 to 125 mg/dL indicate [...] Standards of Medical Care in Diabetes 2016, [place] Diabetes Association. Diabetes Care. 2016.39(Suppl 1). Interpretation and review of laboratory resultsNormalCleveland ClinicPotassium [Moles/Vol]4.2 mmol/L3.7 - 5.1 mmol/LCleveland ClinicProtein [Mass/Vol]6.6 g/dL 6.3 - 8.0 g/dLParkwood Hospitalodium [Moles/Vol]138 mmol/L136 - 144 mmol/L CentervilleUrea nitrogen [Mass/Vol]17 mg/dL7 - 21 mg/dLCenterville Albumin [Mass/Vol]4.1 g/dLNormal3.9-4.9Avon HospitalComment on above:Order Comment: Specimen Type: BLOOD SPECIMEN Ordering Facility: [facility] Address: [address] [place], [place] [address]Performed By: #### 32846-8, 2276-4, 76339-4, 3016-3 #### [facility] CLIA [id number] [address] [place] [address] [place] AMERICAALP [Catalytic activity/Vol]75 U/LNormal 34-123Kansas City HospitalComment on above:Order Comment: Specimen Type: BLOOD SPECIMEN Ordering Facility: [facility] Address: [address] [place], [place] [address]Performed By: #### 82208-1, 6-4, 40767-2, 3016-3 #### [facility] CLIA [id number] [address] [place] [address] [place] AMERICAALT [Catalytic activity/Vol]12 U/LNormal 7-38K[place] City HospitalComment on above:Order Comment: Specimen Type: BLOOD SPECIMEN Ordering Facility: [facility] Address: [address] [place], [place] [address]Performed By: #### 92752-2, 6-4, 28573-4, 3016-3 #### [facility] CLIA [id number] [address] [place] [address] [place] AMERICAAnion gap [Moles/Vol]11 mmol/LNormal8-15 [place] HospitalComment on above:Order Comment: Specimen Type: BLOOD SPECIMEN Ordering Facility: [facility] Address: [address] [place], [place] [address]Performed By: #### 39440-9, 2276-4, 56036-6, 3016-3 #### [facility] CLIA [id number] [address] [place] [address] [place] AMERICAAST [Catalytic activity/Vol]19 U/LNormal 13-35[place] HospitalComment on above:Order Comment: Specimen Type: BLOOD SPECIMEN Ordering Facility: [facility] Address: [address] [place], [place] [address]Performed By: #### 25495-3, 2276-4, 94347-0, 3016-3 #### [facility] CLIA [id number] [address] [place] [address] [place] AMERICABilirubin [Mass/Vol]0.4 mg/dLNormal 0.2-1.3Avo HospitalComment on above:Order Comment: Specimen Type: BLOOD SPECIMEN Ordering Facility: [facility] Address: [address] [place], [place] [address]Performed By: #### 44277-1, 6-4, 18065-6, 3016-3 #### [facility] IA [id number] [address] [place] [address] [place] AMERICACalcium [Mass/Vol]8.5 mg/dLNormal8.5-10.2 [place] HospitalComment on above:Order Comment: Specimen Type: BLOOD SPECIMEN Ordering Facility: [facility] Address: [address] [place], [place] [address]Performed By: #### 52853-5, 6-4, 28338-0, 3016-3 #### [facility] IA [id number] [address] [place] [address] [place] AMERICAChloride [Moles/Vol]104 mmol/LNormal 98-107K[place] City HospitalComment on above:Order Comment: Specimen Type: BLOOD SPECIMEN Ordering Facility: [facility] Address: [address] [place], [place] [address]Performed By: #### 15554-1, 2276-4, 21783-6, 3016-3 #### [facility] CLIA [id number] [address] [place] [address] [place] AMERICACO2 [Moles/Vol]23 mmol/IDadiur97-35Yckk HospitalComment on above:Order Comment: Specimen Type: BLOOD SPECIMEN Ordering Facility: [facility] Address: [address] [place], [place] [address]Performed By: #### 33737-8, 2276-4, 47377-1, 3016-3 #### [facility] CLIA [id number] [address] [place] [place] [address] [place] AMERICACreatinine [Mass/Vol]0.63 mg/dLNormal 0.58-0.96Av HospitalComment on above:Order Comment: Specimen Type: BLOOD SPECIMEN Ordering Facility: [facility] Address: [address] [place], [place] [address]Performed By: #### 21487-8, 2276-4, 59945-7, 3016-3 #### [facility] CLIA [id number] [address] [place] [address] [place] AMERICACreatinine and Glomerular filtration rate.predicted panel (S/P/Bld)115 mL/min/1.73m???Normal>=60Av HospitalComment on above:Order Comment: Specimen Type: BLOOD SPECIMEN Ordering Facility: [facility] Address: [address] [place], [place] [address]Result Comment: Estimated Glomerular Filtration Rate (eGFR) is calculated using the 2020 CKD-EPI cre atinine equation. This equation utilizes serum creatinine, sex, and age as parameters. The creatinine assay has traceable calibration to isotope dilution- mass spectrometry. Refer to KDIGO guidelines for clinical interpretation. In patients with unstable renal function, e.g. those with acute kidney injury, the eGFR may not accurately reflect actual GFR.Performed By: #### 97762-8, 2276-4, 03025-4, 3016-3 #### [facility] CLIA [id number] [address] [place] [address] [place] AMERICAGlucose [Mass/Vol]82 mg/gADiqvcw54-65Qbtr HospitalComment on above:Order Comment: Specimen Type: BLOOD SPECIMEN Ordering Facility: [facility] Address: [address] [place], [place] [address]Result Comment: The [place] Diabetes Association (ADA) provides guidance for cutoff [...] Standards of Medical Care in Diabetes 2016, [place] Diabetes Association. Diabetes Care. 2016.39(Suppl 1).Performed By: #### 52118-1, 6-4, 81506-8, 3016-3 #### [facility] CLIA [id number] [address] [place] [address] [place] AMERICAPotassium [Moles/Vol]4.2 mmol/LNormal 3.7-5.1Arobert wood john[facility] somerset HospitalComment on above:Order Comment: Specimen Type: BLOOD SPECIMEN Ordering Facility: [facility] Address: [address] [place], [place] [address]Performed By: #### 91065-9, 6-4, 97101-8, 3016-3 #### [facility] CLIA [id number] [address] [place] [address] [place] AMERICAProtein [Mass/Vol]6.6 g/dLNormal6.3-8.0 [facility]ountain Medical CenterComment on above:Order Comment: Specimen Type: BLOOD SPECIMEN Ordering Facility: [facility] Address: [address] [place], [place] [address]Performed By: #### 85745-7, 6-4, 37108-5, 3016-3 #### [facility] CLIA [id number] [address] [place] [address] [place] AMERICASodium [Moles/Vol]138 mmol/AFzkuwh914-880 [facility] Medical CenterComment on above:Order Comment: Specimen Type: BLOOD SPECIMEN Ordering Facility: [facility] Address: [address] [place], [place] [address]Performed By: #### 31300-4, 2276-4, 86150-4, 6-3 #### [facility] CLIA [id number] [address] [place] [address] [place] AMERICAUrea nitrogen [Mass/Vol]17 mg/dLNormal 7-21Avon HospitalComment on above:Order Comment: Specimen Type: BLOOD SPECIMEN Ordering Facility: [facility] Address: [address] [place], [place] [address]Performed By: #### 81069-1, 6-4, 55183-7, 6-3 #### [facility] CLIA [id number] [address] [place] [address] [place] AMERICAFERRITINon 94-11-9311Iaxxuvdl [Mass/Vol] 188.3 ng/mL14.7 - 205.1 ng/mLCleveland ClinicFOLATE, SERUMon 78-06-2875Yuilqe [Mass/Vol]18.3 ng/mL4.7 - PINF ng/mLCleveland ClinicFerritin SerPl-mCncon 38-08-3850Ntrwzjyq [Mass/Vol]188.3 ng/kQXocrcz02.7-205.1Avon HospitalComment on above:Order Comment: Specimen Type: BLOOD SPECIMEN Ordering Facility: [facility] Address: [address] [place], [place] [address]Performed By: #### 53404-4, 6-4, 36129-0, 6-3 #### [facility] CLIA [id number] [address] [place] [address] [place] AMERICAFolate SerPl-mCncon 01-86-0251Gqwzxu [Mass/Vol]18.3 ng/mLNormal>4.7Avon HospitalComment on above:Order Comment: Specimen Type: BLOOD SPECIMEN Ordering Facility: [facility] Address: [address] [place], [place] [address]Performed By: #### 2284-8, 2132-9 #### [facility] CLIA [id number] [address] [facility] [place] [address] [place] CSHGSBDRqI6l (Bld)on 76-53-4444Eegtecw glucose Estimated from glycated hemoglobin (Bld) [Mass/Vol]82 mg/dLCenterville Comment on above:eAG: (Estimated average glucose) is a calculated value from HgbA1c and is medical collections representative of the average blood glucose level in the last 2-3 month period.HbA1c (Bld) [Mass fraction]4.5 %4.3 - 5.6 %CentervilleComment on above:[place] Diabetes Association guidelines indicate that patients with HgbA1c in the range 5.7-6.4% are at increased risk for development of diabetes, and intervention by lifestyle modification may be beneficial. HgbA1c greater or equal to 6.5% is considered diagnostic of diabetes.CentervilleAverkindred hospital glucose Estimated from glycated hemoglobin (Bld) [Mass/Vol]82 mg/dLNoSpanish Fork HospitalComment on above:Order Comment: Specimen Type: BLOOD SPECIMEN Ordering Facility: [facility] Address: [address] [place], [place] [address]Result Comment: eAG: (Estimated average glucose) is a calculated value from HgbA1c and is medical collections representative of the average blood glucose level in the last 2-3 month period.Performed By: #### 54726-5 #### [facility] CLIA [id number] [address] [place] [address] [place] GTHACHHGwR9z (Bld) [Mass fraction] 4.5 %Normal4.3-5.6AMountainStar HealthcareComment on above:Order Comment: Specimen Type: BLOOD SPECIMEN Ordering Facility: [facility] Address: [address] [place], [place] [address]Result Comment: [place] Diabetes Association guidelines indicate that patients with HgbA1c in the range 5.7-6.4% are at increased risk for development of diabetes, and intervention by lifestyle modification may be beneficial. HgbA1c greater or equal to 6.5% is considered diagnostic of diabetes.Performed By: #### 26244-9 #### [facility] CLIA [id number] [address] [place] [address] [place] AMERICAIron and Iron binding capacity panelon 01-71-3567Zzmtevfigpvsfw and review of laboratory results AbnormalCleadams county regional medical center ClinicIron [Mass/Vol]239 ug/uRTyuf78 - 186 ug/dLCentervilleIron binding capacity [Mass/Vol]268 ug/dL232 - 386 ug/dLCenterville Iron/TIBC [Molar ratio]89.2 %High15.0 - 57.0 %CentervilleIron [Mass/Vol]239 ug/wRFdla40-256Amzy HospitalComment on above:Order Comment: Specimen Type: BLOOD SPECIMEN Ordering Facility: [facility] Address: [address] [place], [place] [address]Performed By: #### 72207-2, 2276-4, 70971-9, 3016-3 #### [facility] CLIA [id number] [place] [address] [place] AMERICAIron binding capacity [Mass/Vol]268 ug/dL Awvyjj996-027Hkiw HospitalComment on above:Order Comment: Specimen Type: BLOOD SPECIMEN Ordering Facility: [facility] Address: [address] [place], [place] [address]Performed By: #### 90084-5, 6-4, 87517-2, 3016-3 #### [facility] CLIA [id number] [place] [address] [place] AMERICAIron/TIBC [Molar ratio]89.2 %High 15.0-57.0Av HospitalComment on above:Order Comment: Specimen Type: BLOOD SPECIMEN Ordering Facility: [facility] Address: [address] [place], [place] [address]Performed By: #### 88957-6, 6-4, 95183-6, 3016-3 #### [facility] CLIA [id number] [address] [place] [address] [place] AMERICALaboratory - Hematology and Cell countson 95-07-5025Hbsnixowk/100 WBC (Bld)0.8 %NOMS HealthcareEosinophils/100 WBC (Bld) 2.6 %NOMS HealthcareErythrocyte distribution width (RBC) [Ratio]11.8 %11.5 - 15.0 %[facility] Specialty HospitalHematocrit (Bld) [Volume fraction]43 %36.0 - 46.0 %[facility] Specialty HospitalHemoglobin (Bld) [Mass/Vol]14.6 g/dL11.5 - 15.5 g/dLSelect Specialty Hospital Lymphocytes/100 WBC (Bld)37.3 %[facility] CenterH (RBC) [Entitic mass]30.5 pg 26.0 - 34.0 pgSSM Saint Mary's Health CenterHC (RBC) [Mass/Vol]34 g/dL30.5 - 36.0 g/dLSSM Saint Mary's Health CenterV (RBC) [Entitic vol]90 fL80.0 - 100.0 fLSelect Specialty Hospital Monocytes/100 WBC (Bld)4.8 %[facility] Specialty HospitalNeutrophils/100 WBC (Bld)54.4 %[facility] Specialty HospitalRBC (Bld) [#/Vol]4.78 10*6/uL3.90 - 5.20 m/uLSelect Specialty HospitalNo Panel Informationon 08-96-8426Fzgbnbrnpxaqsp and review of laboratory resultsNormal The Christ HospitalInterpretation and review of laboratory results NormalHCA Florida Kendall HospitalPTH INTACT on 06-52-0699Bvofsmtajm.intact [Mass/Vol]34 pg/mL15 - 65 pg/mLClevelLake County Memorial Hospital - West PTH-Intact SerPl-mCncon 68-67-0488Glflkrausp.intact [Mass/Vol]34 pg/mLNormal 15-65Avon HospitalComment on above:Order Comment: Specimen Type: BLOOD SPECIMEN Ordering Facility: [facility] Address: [address] [place], [place] [address]Performed By: #### 2731-8 #### [facility] CLIA [id number] [address] [place], [place] [address]Parathyrin.intact [Mass/Vol] on 50-26-0476Bjwchpufgzqsbg and review of laboratory resultsNormalCleveland Ashtabula County Medical CenterTHYROID STIMULATING HORMONEon 95-37-1554FMJ Qn2.62 m[IU]/L CentervilleComment on above:If the patient is , TSH reference range varies by gestational period: First Trimester (weeks 9-12): 0.180-2.990 mIU/L Second Trimester: 0.110-3.980 mIU/L Third Trimester: 0.480-4.710 mIU/L Liam Larson et al. A Practical Approach for the Verifications and Determination of Site- and Trimester-Specific Reference Intervals for Thyroid Function tests in . Thyroid, 2019:29:3:412-420.Pritesh Lemus et al. 2017 Guidelines of the [place] Thyroid Association for the Diagnosis and Management of Thyroid Disease during and the . Thyroid, 2017:27:3:315-389. TSH SerPl-aCncon 33-02-3849OKT Qn2.620 m[IU]/LNormal0.270-4.200[facility] Comment on above:Order Comment: Specimen Type: BLOOD SPECIMEN Ordering Facility: [facility] Address: [address] [place] [address]Aypnll Comment: If the patient is , TSH reference range varies by gestational period: First Trimester (weeks 9-12): 0.180-2.990 mIU/L Second Trimester: 0.110-3.980 mIU/L Third Trimester: 0.480-4.710 mIU/L Liam Larson et al. A Practical Approach for the Verifications and Determination of Site- and Trimester-Specific Reference Intervals for Thyroid Function tests in . Thyroid, 2019:29:3:412-420.Pritesh Lemus et al. 2017 Guidelines of the [place] Thyroid Association for the Diagnosis and Management of Thyroid Disease during and the . Thyroid, 2017:27:3:315-389. Performed By: #### 08580-0, 2276-4, 29238-1, 3016-3 #### [facility] CLIA [id number] [address] [place] [address] [place] OF AMERICAVITAMIN B1 (THIAMINE), WHOLE BLOODon 25-53-0859Vxqutgkm (Bld) [Moles/Vol]244.2 nmol/LHigh84.3-213.3AMountainStar Healthcare Comment on above:Order Comment: Specimen Type: BLOOD SPECIMEN Ordering Facility: [facility] Address: [address] [place], [place] [address]Rlxvnm Comment: This assay measures the concentration of thiamine diphosphate (TDP), the primary active form of vitamin B1. Approximately 90 percent of vitamin B1 present in whole blood is TDP. Thiamine and thiamine monophosphate, which comprise the remaining 10 percent, are not measured. This test was developed, and its performance characteristics determined by the [place] [facility]. It has not been cleared or approved by the FDA. The [place] [facility] is regulated under CLIA as qualified to perform high-complexity testing. This test is used for clinical purposes. It should not be regarded as investigational or for research.Performed By: #### 2284-8, 2131-9 #### [facility] CLIA [id number] [address] [place] [address] [place] AMERICAVITAMIN B12on 56-46-4771Qnzpdigou (Vitamin B12) [Mass/Vol]853 pg/mL232 - 1245 pg/mLCavita health system bucyrus hospital ClinicVITAMIN D 25 HYDROXYon 048625-hfpvpkshugjmmw D3 [Mass/Vol]68.4 ng/mL31.0 - 80.0 ng/mL CentervilleComment on above:Classification of 25 [place] Vitamin D status: Deficiency/Insufficiency: < or = 30 ng/ml. Sufficiency/Optimal Levels: 31-80 ng/mL Toxicity: > 100 ng/mL. Test performed by chemiluminescent immunoassay. Vit B12 SerPl-mCncon 28-95-5656Hznifikrp (Vitamin B12) [Mass/Vol]853 pg/mLNormal 232-1245Avon HospitalComment on above:Order Comment: Specimen Type: BLOOD SPECIMEN Ordering Facility: [facility] Address: [address] [place], [place] [address]Ocquvyngt By: #### 2284-8, 9 #### [facility] CLIA [id number] [address] [place] [address] [place] OF AMERICALaboratory - Microbiology and Antimicrobial susceptibilityon 74-39-1894HAZG-CoV-2 (COVID-19) RNA ALBERTO+probe Ql (Unsp spec)NegativeNOMS HealthcareNo Panel Informationon 83-49-0824GWM ANegative NOMS HealthcareFLU BNegativeNONE HealthcareNOMS HealthcareXR CHEST 2 VIEWSon 10-15-0602YO CHEST 2 VIEWSEXAM: XR CHEST 2 VIEWS Clinical History: Cough and congestion Reference Exam: No comparison Findings: The cardiopericardial silhouette is normal in appearance. The pulmonary vessels are not cephalized.There is no alveolar edema, pneumonia, or pneumothorax. Negative for pleural effusion. The skeletonis remarkable for gentle dextrorotoscoliosis thoracic spine. Postprocedural changes in the upper abdomen likely cholecystectomy related. Impression: Negative for specific acute cardiopulmonic pathology. Dictated on: 06/08/2024 1:21 PM This report has been electronically signed and approved by the interpreting Radiologist.NormalNot AvailableXR Chest 2 Viewson 15-95-6819ATAN: XR CHEST 2 VIEWS Clinical History: Cough and congestion Reference Exam: No comparison Findings: The cardiopericardial silhouette is normal in appearance. The pulmonary vessels are not cephalized.There is no alveolar edema, pneumonia, or pneumothorax. Negative for pleural effusion. The skeletonis remarkable for gentle dextrorotoscoliosis thoracic spine. Postprocedural changes in the upper abdomen likely cholecystectomy related. Impression: Negative for specific acute cardiopulmonic pathology. Dictated on: 06/08/2024 1:21 PM This report has been electronically signed and approved by the interpreting Radiologist. Braulio Khan MD - 06/08/2024 EXAM: XR CHEST 2 VIEWS Clinical History: Cough and congestion Reference Exam: No comparison Findings: The cardiopericardial silhouette is normal in appearance. The pulmonary vessels are not cephalized.There is no alveolar edema, pneumonia, or pneumothorax. Negative for pleural effusion. The skeletonis remarkable for gentle dextrorotoscoliosis thoracic spine. Postprocedural changes in the upper abdomen likely cholecystectomy related. Impression: Negative for specific acute cardiopulmonic pathology. Dictated on: 06/08/2024 1:21 PM This report has been electronically signed and approved by the interpreting Radiologist. [facility] HealthcareRadiology Study observation (narrative)[facility] HealthcareXR Chest 2 ViewsOrdered By: Braulio Gardner on 35-62-3810RUGFSelect Specialty Hospital Work Phone: Laboratory - Microbiology and Antimicrobial susceptibilityOrdered By: Alicia Macias on 11-65-1029PKCX-CoV-2 (COVID-19) RNA ALBERTO+probe Ql (Unsp spec)NegativeNegativeMosaic Life Care at St. [facility] Panel Information Ordered By: Alicia Gilberto on 93-85-9124Ybtrzeyszjngiu and review of laboratory resultsNormalLevine Children's HospitalCBC panel Auto (Bld)on 38-28-5369Qxifqsjoptq distribution width (RBC) [Ratio]12.1 %Eqpgvm34.5-15.0 [facility] on above:Order Comment: Specimen Type: BLOOD SPECIMEN Ordering Facility: [facility] Address: [address] [place], [place] [address]Performed By: #### 36000-5 #### [facility] CLIA [id number] [address] [place] [address]Nhhjziezzy (Bld) [Volume fraction]39.5 %Rkpzcd01.0-46.0 [facility] on above:Order Comment: Specimen Type: BLOOD SPECIMEN Ordering Facility: [facility] Address: [address] [place], [place] [address]Performed By: #### 75295-6 #### [facility] CLIA [id number] [address] [place] [address]54[address]Axfestlsne (Bld) [Mass/Vol]14.2 g/gVCwwkzt38.5-15.5CShelby Memorial Hospital on above:Order Comment: Specimen Type: BLOOD SPECIMEN Ordering Facility: [facility] Address: [address] [place], [place] [address]Performed By: #### 52045-0 #### [facility] CLIA [id number] [address] [place], [place] [address]NBP (RBC) [Entitic mass]30.9 idRvlsvb44.0-34.0[facility] on above:Order Comment: Specimen Type: BLOOD SPECIMEN Ordering Facility: [facility] Address: [address] [place], [place] [address]Performed By: #### 49037-0 #### [facility] CLIA [id number] [address] [place], [place] [address]NELU (RBC) [Mass/Vol]35.9 g/fMXwabdd58.5-36.0[facility] on above:Order Comment: Specimen Type: BLOOD SPECIMEN Ordering Facility: [facility] Address: [address] [place], [place] [address]Performed By: #### 68236-8 #### [facility] CLIA [id number] [address] [place], [place] [address]FBH (RBC) [Entitic vol]86.1 tRFxswcn76.0-100.0[facility] on above:Order Comment: Specimen Type: BLOOD SPECIMEN Ordering Facility: [facility] Address: [address] [place], [place] [address]Performed By: #### 80536-1 #### [facility] CLIA [id number] [address] [place] [address]Bjwtiljfa RBC (Bld) [#/Vol]10*3/uLNormal<0.01[facility] on above:Order Comment: Specimen Type: BLOOD SPECIMEN Ordering Facility: [facility] Address: [address] [place], [place] [address]Performed By: #### 84055-5 #### [facility] CLIA [id number] [address] [place] [address] 780[address]Dkqlfmxc mean volume (Bld) [Entitic vol]8.8 fLLow9.0-12.7 [facility] on above:Order Comment: Specimen Type: BLOOD SPECIMEN Ordering Facility: [facility] Address: [address] [place], [place] [address]Performed By: #### 20182-8 #### [facility] CLIA [id number] [address] [place], [place] [address]Esckslldp (Bld) [#/Vol]251 10*3/zASmukeu261-454Eldvjfmyg Clinic ClevelandComment on above:Order Comment: Specimen Type: BLOOD SPECIMEN Ordering Facility: [facility] Address: [address] [place], [place] [address]Performed By: #### 82078-8 #### [facility] CLIA [id number] [address] [place] [address]YAH (Bld) [#/Vol]4.59 10*6/uLNormal3.90-5.20[facility]ult[facility] HospitalCommunson healthcare [facility] on above:Order Comment: Specimen Type: BLOOD SPECIMEN Ordering Facility: [facility] Address: [address] [place], [place] [address]Performed By: #### 04855-3 #### [facility] CLIA [id number] [address] [place] [address] 19458SPS (Bld) [#/Vol]6.05 10*3/uLNormal3.70-11.00[facility]ult[facility] HospitalCommunson healthcare [facility] on above:Order Comment: Specimen Type: BLOOD SPECIMEN Ordering Facility: [facility] Address: [address] [place], [place] [address]Performed By: #### 61268-1 #### [facility] CLIA [id number] [address] [place] [address]65[address]LGO CBC PNL BLD AUTOon 34-26-3833QIE NRBC # BLD AUTO<0.01NINF [facility] PLATELET # BLD AUPE033EGPYCoxHealth PMV BLD AUTO8.8 fL Low9.0 - 12.7 fLCoxHealth WBC # BLD AUTO6.05Select Specialty HospitalErythrocyte distribution width (RBC) [Ratio]12.1 %11.5 - 15.0 %[facility] HealthcareHematocrit (Bld) [Volume fraction]39.5 %36.0 - 46.0 %[facility] HealthcareHemoglobin (Bld) [Mass/Vol]14.2 g/dL11.5 - 15.5 g/dLINTERMOUNTAIN HEALTHCARE HealthcareInterpretation and review of laboratory resultsAbnormalOzarks Community Hospital (RBC) [Entitic mass]30.9 pg26.0 - 34.0 pgNONE HealthcareMCHC (RBC) [Mass/Vol]35.9 g/dL30.5 - 36.0 g/dLSSM Saint Mary's Health CenterV (RBC) [Entitic vol]86.1 fL80.0 - 100.0 fLSelect Specialty HospitalRBC (Bld) [#/Vol]4.59 10*6/uL3.90 - 5.20 m/uLINTERMOUNTAIN HEALTHCARE HealthcareSpecimen Type: BLOOD SPECIMEN Ordering Facility: [facility] Address: [address] [place] [address] Original Ordering Provider: TITUS GOMEZ HealthcareCoding Summaryon 28-58-9917Xmsdor SummaryHTMLBase 64 UgplmjjzEDf5fVg+PGhlYWQ+BE3JVRUpV59meOAmpO4vE9DJQOeAQppiWTELKApWIsTqjeErOE1sdKSa ZXJu [file] Y29 (more content not included)...[facility] HospitalConsent Formson 29-04-0234Sozvwso [id number]#1.00OTGTIFF St. Vincent HospitalTelemetry Stripson 79-77-4846Ocoybckbj Strips [id number]#1.00OTGTIFFSt. Vincent HospitalC Urineon 02-25-2024 Urine<10,000 cfu/mlNMetroHealth Main Campus Medical CenterComment on above: Performed By: #### 9342353, [id number], [id number] #### [facility] (DEFAULT) [address] [place], [place] [address]PKQP Postoperative Recordon 78-77-8259BGEZ Postoperative RecordMAGR Phase II Record Summary Primary Physician: Refugio Sue MD Finalized Date/Time: 02/25/24 14:42:55 Pt. Name: ALLAN BURR /Sex: 1985 FEMALE Med Rec #: [id number] Physician: Nav Calvillo MD Financial #: [id number] Pt. Type: O Room/Bed: [facility] Admit/Disch: 02/23/24 03:22:23 - 02/24/24 18:00:00 Institution: Phase II Case Times MAGR Pre-Care Text: Patient is free from s/s of injury. Patient remains free from compromised physical state related tosurgery or anesthesia. Patient comfort maintained. Patient/family verbalize [...] Signatures Signed By: Matilde Aguila RN 02/25/24 14:42[facility].Auto Diff 1on 02-24-2024 Auto Hood %8 %Normal1-12[facility] Hospital - YoungstownComment on above:Performed By: #### 6832583, [id number], [id number] #### [facility] (DEFAULT) [address] [place] [address]96[address]Umry Abs#0.1 m70Zthmho4.0-0.2Magrsheltering arms hospital HospitalComment on above:Performed By: #### 3510695, 17681853, [id number] #### [facility] (DEFAULT) [address] [place] [address] 52492Udovmpshn/100 WBC (Bld)1.2 %Normal0.2-2.0[facility] Comment on above:Performed By: #### 1401362, 31586736, [id number] #### [facility] (DEFAULT) [address] [place] [address] 03459Trq Abs#0.1 o52Syxpft1.0-0.4[facility] Hospital - YoungstownComment on above:Performed By: #### 7428383, [id number], [id number] #### [facility] (DEFAULT) [address] [place] [address] 95861Dkqpjlpzmws/100 WBC (Bld)1.3 %Normal0.9-4.0[facility] HospitalComment on above:Performed By: #### 5254292, 62322512, [id number] #### [facility] (DEFAULT) [address] [place] [address] 13091Cmnfq Abs#1.7 f12Burvpm1.3-2.9[facility] HospitalComment on above:Performed By: #### 5678364, 75314193, [id number] #### [facility] (DEFAULT) [address] [place] [address] 85667Kovbrgereqr/100 WBC (Bld)20 %Jrmgpu07-65Plzedzmc Hospital Comment on above:Performed By: #### 3960307, 31245060, [id number] #### [facility] (DEFAULT) [address] [place] [address] 52926Niin Abs#0.7 v88Xsrxvi6.0-0.8[facility] HospitalComment on above:Performed By: #### 1484896, 42856101, [id number] #### [facility] (DEFAULT) [address] [place] [address] 43597Tvrb Abs#6.1 h18Aliazh2.5-9.2Magrsheltering arms hospital HospitalComment on above:Performed By: #### 9605656, 34814288, [id number] #### [facility] (DEFAULT) [address] [place] [address] 28152Jsxbueglxhs/100 WBC (Bld)70 %Osyrgs06-44Zryjefpt Hospital Comment on above:Performed By: #### 6213642, 11090310, [id number] #### [facility] (DEFAULT) [address] [place] [address] 33748Hdkmekfhmf Noteon 25-91-8519Akjhhrowub NotePatient: ALLAN BURR Age: 38 years Sex: FEMALE [...] 23 16:) SBP H 122 mmHg (FEB 23:) DBP 76 mmHg (FEB 23:) Review / Management Condition: Stable. Assessment Anesthetic outcome No anesthetic complications noted. Adequate pain relief. awake, VSS, adequate hydration. No Complaint of nausea and vomiting. Plan Transfer/ Discharge: Patient can be discharged from PACU when criteria met. Condition good. [Electronically Signed on: 02/24/2024 16:26 EST] Yair Miranda MD [Verified on: 02/24/2024 16:26 EST] Yair Miranda MDSt. Vincent HospitalAnesthesi NotePatient: ALLAN BURR Age: 38 years Sex: FEMALE [...] Never. Employment/School Assessment Employed Comment: [employer] in [place] Home/Environment Assessment Living situation: Home/Independent. Exercise Assessment Exercise type: Bicycling. Sexual Assessment Sexually active: Yes. Number of current partners 1. Sexual orientation: Straight or heterosexual. . Social & Psychosocial Habits Alcohol 02/23/2024 Alcohol Use: Past Employment/School 02/23/2024 Status: Employed Comment: [employer] in [place] - 02/23/2024 09:02 - Razia Banks RN [...] mmHg (FEB 23:) DBP 79 mmHg (FEB 23) Airway: Mallampati classification: I (soft palate, fauces, uvula, pillars visible). Temporomandibular joint mobility: Good. Mouth: Adequate opening, Teeth ( Within normal limits ). Neck: Supple, Non-tender, Full range of motion. Respiratory: Lungs are clear to auscultation, Respirations are non-labored, Breath sounds are equal. Cardiovascular: Normal rate, Regular rhythm, No murmur. Neurologic: Alert, Oriented. Review / Management Laboratory Results Plan [place] [employer] Anesthesiologists#(ASA) physical status classification: Class II. Anesthetic Preoperative Plan Anesthesia: General. . Anesthetic plan, risks, benefits, and alternatives discussed with the patient and/or family. Patient verbalized understanding. Informed consent was given. Consent was signed by the patient. [Electronically Signed on: 02/24/2024 15:10 EST] Yair Miranda MD [Verified on: 02/24/2024 15:10 EST] Yair Miranda MDNoBrecksville VA [facility] w/ Auto Diffon 02-24-2024 Erythrocyte distribution width (RBC) [Ratio]13.1 %Aaousa43.5-15.0[facility] Hospital - YoungstownComment on above:Performed By: #### 0607476, 69104612, [id number] #### [facility] (DEFAULT) [address] [place] [address] 76593Azqqjvwtvi (Bld) [Volume fraction]30.3 %Low33.7-40.4 [facility] - YoungstownComment on above:Performed By: #### 5360780, 41329013, [id number] #### [facility] (DEFAULT) [address] [place] [address] 49599Fnfhqstdej (Bld) [Mass/Vol]10.7 g/dLLow11.3-15.9[facility] - YoungstownComment on above:Performed By: #### 1397100, 63500804, [id number] #### [facility] (DEFAULT) [address] [place] [address] 28200Zmz Diff?AutoInvalid Interpretation [facility] Comment on above:Performed By: #### 0263100, 21316165, [id number] #### [facility] (DEFAULT) [address] [place] [address] 12387HGU (RBC) [Entitic mass]31 yrHsfkdy10-04Iissfjjc Hospital Comment on above:Performed By: #### 0712936, 33934522, [id number] #### [facility] (DEFAULT) [address] [place] [address] 45598GRSA (RBC) [Mass/Vol]35 g/bLRuuhrs28-56Dwlocllx Hospital Comment on above:Performed By: #### 0514422, 15713460, [id number] #### [facility] (DEFAULT) [address] [place] [address] 71522IJP (RBC) [Entitic vol]89 hBKsxouc42-343Jnrezbow Hospital Comment on above:Performed By: #### 9010586, 68919703, [id number] #### [facility] (DEFAULT) [address] [place] [address] 89880Ktipoltj934 p84Fqvhrb463-266Pkxdopkf HospitalComment on above:Performed By: #### 9879837, 38604514, [id number] #### [facility] (DEFAULT) [address] [place] [address] 49047Luvipish mean volume (Bld) [Entitic vol]7.1 fLNormal 6.3-10.2[facility] HospitalComment on above:Performed By: #### 3039202, 49187842, [id number] #### [facility] (DEFAULT) [address] [place] [address] 05821APE7.41 p46Pqn4.70-5.30[facility] HospitalComment on above: Performed By: #### 1658341, 23047325, [id number] #### [facility] (DEFAULT) [address] [place] [address] 04674ATA3.7 s14Effkar8.5-10.5[facility] HospitalComment on above: Performed By: #### 8348488, 49174866, [id number] #### [facility] (DEFAULT) [address] [place] [address] 43916IHN Standardon 11-97-9778nIXS Non AA>60Invalid Interpretation [facility] HospitalComment on above:Performed By: #### 0177583, 17770486, [id number] #### [facility] (DEFAULT) [address] [place] [address] 75285zFXC AA>60Invalid Interpretation [facility] Comment on above:Performed By: #### 5269114, 95127521, [id number] #### [facility] (DEFAULT) [address] [place] [address] 57779Czznhoe [Mass/Vol]2.6 g/dLLow3.5-5.0[facility] Comment on above:Performed By: #### 7101119, 48317371, [id number] #### [facility] (DEFAULT) [address] [place] [address] 47567Ymfzohz/Globulin [Mass ratio]0.9 {ratio}Low1.4-2.6[facility] HospitalComment on above:Performed By: #### 3855514, 43335564, [id number] #### [facility] (DEFAULT) [address] [place] [address] 40038Hgd Phos56 IU/CSfuaoa83-17Dvrfqfuk HospitalComment on above:Performed By: #### 1022825, 42300667, [id number] #### [facility] (DEFAULT) [address] [place] [address] 66763GBX [Catalytic activity/Vol]19.0 U/ATzdvrg53.0-54.0 [facility] - YoungstownComment on above:Performed By: #### 9638919, 29666458, [id number] #### [facility] (DEFAULT) [address] [place] [address] 77259Gpdrs gap [Moles/Vol]4.8 mmol/LLow5.0-19.0[facility] HospitalComment on above:Performed By: #### 7903763, 17758225, [id number] #### [facility] (DEFAULT) [address] [place] [address] 26710YNM [Catalytic activity/Vol]18 U/MPwkota70-47Ifafhxnz HospitalComment on above:Performed By: #### 0036218, 39595186, [id number] #### [facility] (DEFAULT) [address] [place] [address] 60875Rdfa Total0.6 mg/dLNormal0.3-1.2[facility] HospitalComment on above:Performed By: #### 0364409, 87804350, [id number] #### [facility] (DEFAULT) [address] [place] [address] 95775Eqvqdwq [Mass/Vol]7.2 mg/dLLow8.9-10.3[facility] Hospital Comment on above:Performed By: #### 8074628, 84045821, [id number] #### [facility] (DEFAULT) [address] [place] [address] 60732Ymbaqpcu [Moles/Vol]110 mmol/IWcexwd690-118Clauwyhd HospitalComment on above:Performed By: #### 1014319, 44925669, [id number] #### [facility] (DEFAULT) [address] [place] [address] 64997BS5 [Moles/Vol]21 mmol/JUqahof52-78Tbagaefu Hospital Comment on above:Performed By: #### 2685979, 73455874, [id number] #### [facility] (DEFAULT) [address] [place] [address] 05817Ayiijhsyee [Mass/Vol]0.98 mg/dLNormal0.60-1.30[facility] HospitalComment on above:Performed By: #### 5452157, 73394180, [id number] #### [facility] (DEFAULT) [address] [place] [address] 94717Virehkyy (S) [Mass/Vol]2.8 g/dLNormal1.5-4.3[facility] HospitalComment on above:Performed By: #### 6660347, 21858932, [id number] #### [facility] (DEFAULT) [address] [place] [address] 16886Qjgcnqg [Mass/Vol]79.0 mg/rVCaqerg74.0-118.0[facility] HospitalComment on above:Performed By: #### 2513985, 58050545, [id number] #### [facility] (DEFAULT) [address] [place] [address] 22780Tmsdwwfyyk880 mOsm/LInvalid Interpretation CodeGenesis Hospital HospitalComment on above:Performed By: #### 0894520, 05802756, [id number] #### [facility] (DEFAULT) [address] [place] [address] 19793Tqbvoauyt [Moles/Vol]3.8 mmol/LNormal3.6-5.1[facility] HospitalComment on above:Performed By: #### 8388740, 58534589, [id number] #### [facility] (DEFAULT) [address] [place], [place] [address] 19137Buqulpd [Mass/Vol]5.4 g/dLLow6.5-8.1[facility] Comment on above:Performed By: #### [id number], [id number], [id number] #### [facility] (DEFAULT) [address] [place] [address] 06926Ldvspp [Moles/Vol]132.0 mmol/EGtc178.0-144.0[facility] HospitalComment on above:Performed By: #### [id number], 91516566, [id number] #### [facility] (DEFAULT) [address] [place] [address] 51028Melh nitrogen [Mass/Vol]15 mg/dLNormal8-26[facility] HospitalComment on above:Performed By: #### [id number], [id number], [id number] #### [facility] (DEFAULT) [address] [place] [address] 45075Ibrk nitrogen/Creatinine [Mass ratio]15.3 mg/mgNormal 4.6-16.2[facility] HospitalComment on above:Performed By: #### [id number], [id number], [id number] #### [facility] (DEFAULT) [address] [place] [address] 18527Dwkngccwr Patient Summaryon 99-43-4969Yrtqqzsio Patient SummaryNicole Ville [id number] [place] [address] Patient Discharge Instructions Name: ALLAN BURR : 1985 Patient Address: [address] [place] [address] Primary Care Provider: Name: MARIYA HUERTA Phone: After you are discharged if you find you have any questions, please, call [phone] ext [phone] to speak to a nurse. The [facility] is open Wednesday through Wednesday from 9A to 6P and Wednesday and Wednesday from 9A to 5P Discharge Diagnosis: Hydronephrosis; Nephrolithiasis; Pneumonia; Renal colic on left side Prescription Information: If you have been given a prescription for narcotics, seek immediate medical attention if you have any difficulty breathing or any sudden status changes such as confusion andsleepiness. If you or anyone you know is experiencing suicidal thoughts, mental health, alcohol and/or drug addiction problems; contact the [facility] 02/11 Crisis Hotline -Text 5WJUA gv [phone]. If you received any narcotics, sedation, or [...] business decisions or sign any legal documents [facility] would like to thank you for allowing us to assist you with your healthcare needs.The following includes patient education materials and information [...] those changes are reflected below: New Medications [facility]/pharmacy #[id number], [address], [place] [id number], [phone] tamsulosin (Flomax 0.4 mg oral capsule) 1 cap(s) Oral (given by mouth) At bedtime. MAGRU. Refills: 0. Medications to Continue That Have Not Changed Other Medications ethinyl estradiol-levonorgestrel (Amethia oral tablet) 1 tab(s) Oral (given by mouth) every day. tirzepatide (tirzepatide 7.5 mg/0.5 mL subcutaneous solution) 7.5 Milligram Subcutaneous (under theskin) every week. It is important to always keep an active list of medications available so that you can share with other providers and manage your medications appropriately. As an additional courtesy, we are also providing you with your final active medications list that you can keep with you. ethinyl estradiol-levonorgestrel (Amethia oral tablet) 1 tab(s) Oral (given by mouth) every day. tamsulosin (Flomax 0.4 mg oral capsule) 1 cap(s) Oral (given by mouth) At bedtime. MAGRU. Refills: 0. tirzepatide (tirzepatide 7.5 mg/0.5 mL subcutaneous solution) 7.5 Milligram Subcutaneous (under theskin) every week. Take only the medications listed [...] of the kidneys. The kidneys are a pairof organs that make urine. A kidney stone [...] increases the risk? The (more content not included)...[facility] Intraoperative Recordon [id number] Intraoperative RecordMAGR Intra-Op Record Summary Primary Physician: Refugio Sue MD Finalized Date/Time: 02/24/24 16:35:05 Pt. Name: ALLAN BURR /Sex: 1985 FEMALE Med Rec #: [id number] Physician: Nav Calvillo MD Financial #: [id number] Pt. Type: O Room/Bed: [facility] Admit/Disch: 02/23/24 03:22:23 - Institution: Case Times [...] Role Performed Surgeon - Primary Anesthesiologist of [employer] Record Time In 02/24/24 15:34:00 02/24/24 15:11:00 02/24/24 15:11:00 Time Out 02/24/24 16:08:00 02/24/24 16:17:00 02/24/24 16:17:00 Procedure Cystoscopy with Holmium Cystoscopy with Holmium Cystoscopy with Holmium Laser Laser Laser Last Modified By: Carmen Plummer RN, Barbara RN Long, Barbara RN 02/24/24 16:20:14 02/24/24 16:20:14 02/24/24 16:20:14 Entry 4 Entry 5 Entry 6 Case Attendee Eleni Huerta CST, CST, Leigh-Ann CSFA Comment, Hiral RT (R) CSFA FINANCIAL SECRETARY CT Role Performed Scrub Personnel Finishing Frame Runner Fpga Engineer Time In 02/24/24 15:11:00 02/24/24 15:11:00 02/24/24 [...] Yair Miranda MD, Carmen Plummer RN, Amparo Lam [facility] FINANCIAL SECRETARY, Bradley FINANCIAL SECRETARY, Eleni FINANCIAL SECRETARY CSFA Last Modified By: Carmen Plummer RN [...] Plummer RN 02/24/24 15:3 (more content not included)...[facility] PACU Recordon [id number] PACU RecordMA PACU Record Summary Primary Physician: Refugio Sue MD Finalized Date/Time: 02/24/24 16:39:37 Pt. Name: ALLAN BURRO.B./Sex: 1985 FEMALE Med Rec #: [id number] Physician: Nav Calvillo MD Financial #: [id number] Pt. Type: O Room/Bed: 231/1 Admit/Disch: 02/23/24 03:22:23 - Institution: PACU Case Times MAGR Entry 1 In PACU I 02/24/24 16:17:00 Discharge from PACU 02/24/24 16:39:00 I Last Modified By: Carmen Plummer RN 02/24/24 16:39:34 Finalized By: Carmen Plummer RN Document Signatures Signed By: Carmen Plummer RN 02/24/24 16:39[facility] Note - Nurseon 07-26-5693Umdjytqk Note - NursePatient discharged at this time to home via private vehicle. Discharge paperwork reviewed with patient and spouse prior to discharge. All personal belongings taken. [Electronically Signed on: 02/24/2024 18:20 EST] Tequila Arguello RN [Verified on: 02/24/2024 18:20 EST] Tequila Arguello [facility] Note - NursePatient taken to surgery at this time. Bedside report given to Mara RAMOS. Patient transported to surgery unit by bed, LR running at 20ml/hr per orders. [Electronically Signed on: 02/24/2024 14:12 EST] Tequila Arguello RN [Verified on: 02/24/2024 14:12 EST] Tequila Arguello RNSt. Vincent HospitalXR Abdomen Single View (KUB)on 75-69-2212ZJ Abdomen Single View (KUB)EXAM: XR Abdomen Single View (KUB) HISTORY: LEFT [...] Champ Santa MD 03/01/24 8:26 am [facility] Up to 1 Houron 02-24-2024 XR Fluoroscopy Up to 1 HourEXAM: XR Abdomen Single View (KUB) HISTORY: LEFT [...] Champ Santa MD 03/01/24 8:26 am Technologist: [facility].Auto Diff 1on 90-21-5793Kzdk Hood %6 % Normal1-[facility]stownComment on above:Performed By: #### [id number], 2643814, 7231731732, 0097184139, 1167258369, 3131002, 67529436 ####[facility] (DEFAULT)[address] [place] [address] 89206Dlyf Abs#0.1 s54Esbyos 0.0-0.2MRegency Hospital ToledoComment on above:Performed By: #### [id number], 7328745, 2662119588, 1858826944, 1572998286, 2899648, 66976483 ####[facility] (DEFAULT)[address] [place] [address] 22659Rvcdykupt/100 WBC (Bld)0.7 % Normal0.2-2.0[facility] HospitalComment on above:Performed By: #### [id number], 6697360, 6205460534, 6053324121, 8839558716, 8172630, 07213259 ####[facility] (DEFAULT)[address] [place] [address] 63208Rbd Abs#0.1 r91Rjuljn 0.0-0.4Magrsheltering arms hospital HospitalComment on above:Performed By: #### [id number], 1300929, 1524418644, 5602663438, 2539209219, 2576060, 91076170 ####[facility] (DEFAULT)[address] [place] [address] 02541Jsmfdyhuryl/100 WBC (Bld)1.5 % Normal0.9-4.0[facility] HospitalComment on above:Performed By: #### [id number], 4912942, , 0952782699, 2850559492, 1294836, 48797938 ####[facility] (DEFAULT)[address] [place] [address] 90971Wfjfc Abs#2.9 q79Myufhw 1.3-2.9[facility] HospitalComment on above:Performed By: #### [id number], 6077500, , 3961253500, 2657269222, 0487238, 67044973 ####[facility] (DEFAULT)[address] [place] [address] 38393Ltmdseomppa/100 WBC (Bld)34 % Ublmib18-91Rnhnswvq HospitalComment on above:Performed By: #### [id number], 5708119, 1519907121, 9983592551, 2755961272, 8581992, 85138263 ####[facility] (DEFAULT)[address] [place] [address] 67568Obzm Abs#0.5 v30Zvymuk 0.0-0.8[facility] HospitalComment on above:Performed By: #### [id number], 3608015, , , 2345785317, 1855748, 46897443 ####[facility] (DEFAULT)[address] [place] [address] 28001Mvvm Abs#4.9 s11Zlxcrh3.5-9.2 [facility] HospitalComment on above:Performed By: #### [id number], 3858911, 8395865586, , 7820171834, 3997556, 91288349 ####[facility] (DEFAULT)[address] [place] [address] 69281Nunrxbyckre/100 WBC (Bld)58 % Usfqgn26-58Jkuvkjcm HospitalComment on above:Performed By: #### 0171280467, 7844423, 1678852839, 3706866817, 6225350032, 1580805, 53529028 ####[facility] (DEFAULT)[address] [place] [address] 15298IXS w/ Auto Diffon 44-25-1311Awiprkomxhy distribution width (RBC) [Ratio]13.5 %Eijuhg53.5-15.0 [facility] HospitalComment on above:Performed By: #### [id number], 5956881, 9952674854, 5188758070, 4205395822, 9331929, 63912542 ####[facility] (DEFAULT)[address] [place] [address] 40648Vgjcuybgnc (Bld) [Volume fraction]33.8 %Cdxrds71.7-40.4[facility] HospitalComment on above:Performed By: #### 5166964654, 7676491, 6141607538, 7234713069, 6139459791, 0955398, 43503165 ####[facility] (DEFAULT)[address] [place] [address] 12632Ktwromzhsv (Bld) [Mass/Vol]11.6 g/cQLgtxto50.3-15.9[facility] HospitalComment on above: Performed By: #### 8093732660, 7900269, 1717075864, 2370279187, 8606428479, 7280470, 97575887 ####[facility] (DEFAULT)[address] [place] [address] 50679Lie Diff?AutoInvalid Interpretation CodeGenesis Hospital HospitalComment on above:Performed By: #### 4153438356, 2402197, 9566199879, 4540355496, 4267099272, 5741065, 30675351 ####[facility] (DEFAULT)[address] [place], [place] [address]H (RBC) [Entitic mass]30 uwTwijuf39-43Salfhueo HospitalComment on above:Performed By: #### 4559612764, 7592088, 5202099392, 7619289454, 1993683876, 8088080, 79451405 ####[facility] (DEFAULT)[address] [place], [place] [address]HC (RBC) [Mass/Vol]34 g/tTSffgwp24-09 [facility]Comment on above:Performed By: #### 8000576171, 2250819, 0896135692, 6122674630, 7172322746, 8927895, 01700149 ####[facility] (DEFAULT)[address] [place] [address] 82599OMJ (RBC) [Entitic vol]89 fL Kutjvk88-055Kygbptqn HospitalComment on above:Performed By: #### 5036721034, 9191768, 6529149654, 3067996318, 1978341498, 2716121, 29519019 ####[facility] (DEFAULT)[address] [place] [address] 45929Bihpgxkg000 x24Nfow 138-427[facility] HospitalComment on above:Performed By: #### 5635424796, 0683145, 5177321875, 1779424654, 1338543569, 8561132, 16918224 ####[facility] (DEFAULT)[address] [place] [address] 85113Snimvjhe mean volume (Bld) [Entitic vol]7.1 fLNormal6.3-10.2[facility] HospitalComment on above:Performed By: #### 7413360394, 0199367, 4270751831, 5109756914, 0397904626, 3163747, 53836453 ####[facility] (DEFAULT)[address] [place] [address] 55717VSQ9.82 f48Qtacom7.70-5.30[facility] HospitalComment on above:Performed By: #### 1296355663, 3228927, 3717818297, 9392669542, 8984951780, 7047951, 28555122 ####[facility] (DEFAULT)[address] [place] [address] 64446DHR6.5 x10 Normal3.5-10.5[facility] HospitalComment on above:Performed By: #### 5753644609, 5053208, 8635092436, 8657674465, 5304934778, 9126097, 27069022 ####[facility] (DEFAULT)[address] [place] [address] 97458GBM Standardon 97-31-8850fQSV Non AA>60Invalid Interpretation CodeSelect Medical Specialty Hospital - YoungstownComment on above:Performed By: #### [id number], 1975719, 7067629436, 2721290428, 8055059301, 8171734, 77747236 ####[facility] (DEFAULT)[address] [place] [address] 68513fTJR AA>60Invalid Interpretation [facility] HospitalComment on above:Performed By: #### 9016475406, 8759918, 1268447292, 8977235735, 5996739806, 1787141, 31808915 ####[facility] (DEFAULT)[address] [place] [address] 03630Ywxebed [Mass/Vol]3.1 g/dLLow3.5-5.0[facility] HospitalComment on above:Performed By: #### 4221768570, 5945955, 9687516812, 7489916434, 3975120427, 8012651, 73670607 ####[facility] (DEFAULT)[address] [place] [address] 71201Pgggcoj/Globulin [Mass ratio]0.9 {ratio}Low 1.4-2.6[facility] HospitalComment on above:Performed By: #### 5317068547, 9324733, 8296940175, 1331304339, 7781448714, 0353714, 50313421 ####[facility] (DEFAULT)[address] [place] [address] 77237Elm Phos60 IU/TQratds34-68 [facility] HospitalComment on above:Performed By: #### 6390300787, 5695049, 9680591922, 0571351835, 1143732728, 3570527, 73652624 ####[facility] (DEFAULT)[address] [place] [address] 49025LFY [Catalytic activity/Vol]22.0 U/IFpuhks97.0-54.0[facility] HospitalComment on above:Performed By: #### 2781078145, 3300615, 6973732507, 2161175643, 7035377459, 2325966, 39013722 ####[facility] (DEFAULT)[address] [place] [address] 02570Jzhsj gap [Moles/Vol]9.9 mmol/LNormal5.0-19.0[facility] HospitalComment on above:Performed By: #### 3919849865, 8014398, 5027029068, 7679572138, 2491773814, 7558738, 49566356 ####[facility] (DEFAULT)[address] [place] [address] 48020 AST [Catalytic activity/Vol]24 U/ZDedkll61-57Jkffwphi HospitalComment on above: Performed By: #### 0780985318, 4503870, 5296656886, 7972338381, 8935381739, 0521006, 40380456 ####[facility] (DEFAULT)[address] [place] [address] 92160Hvrw Total0.6 mg/dLNormal0.3-1.2[facility] HospitalComment on above: Performed By: #### 4876598603, 1599260, 2100375786, 9018243865, 6910581457, 5219705, 67578019 ####[facility] (DEFAULT)[address] [place] [address] 48774Kqwjiyz [Mass/Vol]8.0 mg/dLLow8.9-10.3[facility] HospitalComment on above: Performed By: #### 5024850823, 3063783, 5039986109, 3804789375, 4401500822, 4223430, 64681979 ####[facility] (DEFAULT)[address] [place] [address] 35754Cskfairr [Moles/Vol]107 mmol/XIawtsz953-089Ehrxlbip HospitalComment on above:Performed By: #### 2840439312, 3440146, 5885067381, , 3121647658, 2713411, 79474984 ####[facility] (DEFAULT)[address] [place] [address] 76716KG1 [Moles/Vol]22 mmol/BUmbwuj40-98Jlejlthv Hospital Comment on above:Performed By: #### 9278224853, 0308522, , , 9045721454, 7869610, 49048787 ####[facility] (DEFAULT)[address] [place] [address] 98435Ahezjmzgga [Mass/Vol]0.81 mg/dLNormal0.60-1.30 [facility]Comment on above:Performed By: #### 3194084754, 2199989, 6506977916, 4876703487, 6038624498, 3559429, 74322026 ####[facility] (DEFAULT)[address] [place] [address] 78470Hknuhzyk (S) [Mass/Vol]3.4 g/dL Normal1.5-4.3[facility] HospitalComment on above:Performed By: #### 1021433111, 3200309, 5023635129, 3290066554, 8896790862, 2569963, 31149981 ####[facility] (DEFAULT)[address] [place] [address] 95962Gpcsilt [Mass/Vol]84.0 mg/xOArmwsh15.0-118.0[facility] HospitalComment on above:Performed By: #### 2842768004, 2206854, 3123822945, 1057572867, 4002339119, 0686303, 86371944 ####[facility] (DEFAULT)[address] [place] [address] 85285Tasfipwtpa 272 mOsm/LInvalid Interpretation CodeGenesis Hospital HospitalComment on above:Performed By: #### [id number], 7048539, 9926016947, , , 1280613, 03781848 ####[facility] (DEFAULT)[address] [place] [address] 41586 Potassium [Moles/Vol]3.9 mmol/LNormal3.6-5.1[facility] HospitalComment on above: Performed By: #### 1976102167, 5389608, , , , 0132731, 01372219 ####[facility] (DEFAULT)[address] [place] [address] 03950Sjebtzn [Mass/Vol]6.5 g/dLNormal6.5-8.1[facility] HospitalComment on above:Performed By: #### 5608300212, 0301426, 6446381337, 0562391805, 3579790810, 3492012, 27977473 ####[facility] (DEFAULT)[address] [place] [address] 80113Waxnhj [Moles/Vol]135.0 mmol/OWco236.0-144.0[facility] HospitalComment on above:Performed By: #### 6799493136, 8473465, 7593276148, 4608003473, 5337769541, 4086574, 78575130 ####[facility] (DEFAULT)[address] [place] [address] 02226Nlxx nitrogen [Mass/Vol]19 mg/dLNormal8-26 [facility] HospitalComment on above:Performed By: #### 3344844635, 4515566, 2534619943, 0278640351, 7461961464, 9316900, 69445900 ####[facility] (DEFAULT)[address] [place], [place] [address]Ttxg nitrogen/Creatinine [Mass ratio]23.4 mg/mgHigh4.6-16.2MRegency Hospital ToledoComment on above:Performed By: #### 8105264081, 0201589, 3706784429, 2053499005, 7123001654, 6667749, 29432703 ####[facility] (DEFAULT)[address] [place], [place] [address]HF Abdomen/Pelvis w/o Contraston 80-04-3142ZY Abdomen/Pelvis w/o Contrast EXAMINATION: CT Abdomen/Pelvis w/o [...] Alex Hawkins MD 02/23/24 5:29 am [facility] Clinical Summaryon 87-27-7320BA Clinical [facility] - Emergency Department [address] [place] [address] ED Clinical Summary PERSON INFORMATION Name: ALLAN BURR Age: 38 Years Sex: FEMALE : 1985 MRN: Acct#: Visit Reason: Nausea; Back swelling; Flank pain; RENAL COLIC ON LEFT SIDE Arrival: 02/23/2024 03:22:23 Discharge: LOS: 000 05:15 Check In: 02/23/2024 03:22:23 Checkout:02/23/2024 08:37:11 Address: [address] [place] [address] PCP: MARIYA HUERTA PROVIDER INFORMATION Provider Role Assigned Unassigned Henrik Godwin DO ED Provider 02/23/2024 03:27:11 Shameka Root STEAM FITTER Nurse 02/23/2024 04:06:24 Krys Lopez RN ED Nurse 02/23/2024 07:14:40 VITALS INFORMATION Vital [...] states she is employed, she works at [employer]. On exam she is pleasant alert and oriented, seen in presence of her , room #6, she appears uncomfortable, with discomfort to the left flank area there is no rash present there, lungs are clearto nontachypneic heart rate rhythm is regular no [...] pain medications, IV a (more content not included)...[facility] - Physicianon 02-15-4940FG Note - PhysicianPatient: ALLAN BURR Age: 38 years Sex: FEMALE [...] states she is employed, she works at [employer]. On exam she is pleasant alert and oriented, seen in presence of her , room #6, she appears uncomfortable, with discomfort to the left flank area there is no rash present there, lungs are clearto nontachypneic heart rate rhythm is regular no [...] antibiotics, will be evaluated on the floor, byurology, will be evaluated for stent placement and possible other procedures to remove this large stone.. Impression and Plan Diagnosis Renal colic on left side (SCV21-WD N23, Discharge, Medical) Significant large kidney stone with obstruction Calls-Consults - Dr Acevedo: 0703 hours: On dthe hospitalist service, to OR am, iv abx pain meds. NPO after midnight,pain meds as needed, iv abx.. Plan Condition: Improved. Disposition: Admit time 02/23/2024 07:35:00, Admit to Inpatient Unit, Nav Calvillo MD. Prescriptions Patient was given the following educational materials Follow up with Counseled: Patient, Family, Regarding diagnosis, Regarding diagnostic results, Regarding treatment plan, Regarding prescription, Patient indicated understanding of instructions. [Electronically Signed on: 02/23/2024 07:53 EST] Henrik Godwin DO [Verified on: 02/23/2024 07:53 EST] Tato Henrik H [facility]ED Note-Nursingon 63-05-2377RT Note-NursingPatient admitted to the floor, hospitalist to review cultures. [facility]-NursingPatient admitted to [address] [place] [address], attending to further review the final rad report [facility] Patient Education Noteon 48-34-6845EB Patient Education NoteEducation [facility] Patient Summaryon 55-23-1400IZ Patient Summary[facility] [address] [place], [place] [id number] PATIENT DISCHARGE INSTRUCTIONS Patient Information Name: ALLAN BURR Age: 38 Years Date of : 1985 Reason For Visit: Nausea; Back swelling; Flank pain; RENAL COLIC ON LEFT SIDE Arrival Time: 02/23/2024 03:22:23 Primary Care Physician: MARIYA HUERTA Attending Physician: Nav Calvillo MD Comment: Visit Diagnosis: Diagnoses This Visit Back swelling ([id number]) Flank pain ([id number]) Nausea ([id number]) Renal colic on left side (N23) The [facility] is open Wednesday through Wednesday from 9A to 6P and Wednesday and Wednesday from 9A to 5P Prescription Information: If you have been given a prescription for narcotics, seek immediate medical attention if you have any difficulty breathing or any sudden status changes such as confusion andsleepiness. If you or anyone you know is experiencing suicidal thoughts, mental health, alcohol and/or drug addiction problems; contact the [facility] 02/11 Crisis Hotline -Text 7CADX im 438934. If you received any narcotics, sedation, or [...] and treatment you received today in the [facility] Emergency Department were for an urgent problem and are not intended as complete care. It is important for you to follow up with a doctor, nurse practitioner, or physician?s technical staff assistant for ongoing care. If your symptoms become worse or you donot improve as expected and you are unable [...] so we can reach you if necessary. [facility] Emergency Department has provided you with a complete list of medications post discharge. Please inform your sheet metal production worker/provider of your visit and for further instruction on these medications. Any specific questions regarding your chronic medications and dosages should be discussed with your primary care physician(s) and/or pharmacist. New Medications Printed Prescriptions acetaminophen-oxycodone (Percocet 5 mg-325 mg oral tablet) 1 [...] mL subcutaneous solution) 7.5 Milligram Subcutaneous (under theskin) every week. Visit Information Allergies: Substance Reaction [...] Yes Antibiotics Aren?t Always (more content not included)...[facility] Extra Green 46-64-5801Vyej CollectedYesInvalid Interpretation [facility] HospitalComment on above:Performed By: #### [id number], 7236805, 4257745626, 0306738205, 5105766617, 8155962, 18501270 #### [facility] (DEFAULT) [address] [place] [address] 31608Vwkzbmzri By: #### [id number], 1726508, 9986941223, 1747632467, 4348213741, 9492817, 71916129 ####[facility] (DEFAULT)[address] [place] [address] 99426Xnzxhspg 59-90-3994Srtnhh Level43.0 IU/L Sujgdw37.0-51.0[facility] YoungstownComment on above:Performed By: #### [id number], 7719497, 3032404756, 5263721882, 1215081578, 4591550, 00824685 ####[facility] (DEFAULT)[address] [place] [address] 89261Xrdufaohd Noteon 28-01-0926Lsrugdlbi Note38 yo female admitted for left sided flank pain. CT of abdomen/pelvis showed 10 mm stone at the left uteropelvic junction. Pt started on IV antibiotics and IV fluids. Pt on Regular diet with NPO after midnight to see urology. No chewing/swallowing difficulties noted, no changes in appetite, 6lb weight gain noted in record since Feb 09. Pt appears mild risk at this time. Will continue tomonitor weight, PO intake and labs. RDN to assist and follow up prn.[facility]. [facility] HospitalPregnancy Test Serum 1on 46-65-0280Eqqn Serum Internal ControlOKSt. Vincent HospitalComment on above:Performed By: #### [id number] #### [facility] (DEFAULT) [address] [place] [address] 06912Updavpslu Test Serum QualNegativeSt. Vincent Hospital Comment on above:Performed By: #### [id number] #### THE [facility] (DEFAULT) [address] [place] [address] 15297BD w Culture if Ind Standardon 77-05-7610Vwfrnilows [facility] St. Vincent HospitalComment on above:Performed By: #### [id number] #### [facility] (DEFAULT) [address] [place] [address] 14844Qnbjg (U)YellowNoSycamore Medical CenterComment on above: Performed By: #### [id number] #### [facility] (DEFAULT) [address] [place] [address] 99416Pazmelz?Not IndicatedInvalid Interpretation [facility] HospitalComment on above:Result Comment: Result created by rule GL_MAGR_ADD_UA_CULT1Performed By: #### [id number] #### [facility] (DEFAULT) [address] [place] [address] 49647Agoaclx (U) [Mass/Vol]NegativeSt. Vincent Hospital Comment on above:Performed By: #### [id number] #### [facility] (DEFAULT) [address] [place] [address] 26561Mxfqwvd Ql (U)NegativeNormalMagruder HospitalComment on above:Performed By: #### [id number] #### [facility] (DEFAULT) [address] [place] [address] 42686Sksuu?Not IndicatedInvalid Interpretation CodeMagruder HospitalComment on above:Result Comment: Result created by rule GL_MAGR_ADD_UA_MICROPerformed By: #### [id number] #### [facility] (DEFAULT) [address] [place] [address] 12059II BilirubinNegativeNormalMagruder HospitalComment on above:Performed By: #### [id number] #### [facility] (DEFAULT) [address] [place] [address] 27782CT BloodNegativeNormalNEGATIVEMagruder HospitalComment on above:Performed By: #### [id number] #### [facility] (DEFAULT) [address] [place] [address] 31364FS ClarityCLEARNormalCLEARMagruder HospitalComment on above:Performed By: #### [id number] #### [facility] (DEFAULT) [address] [place] [address] 20668HG Leuk EstNegativeNormalNEGATIVEMagruder HospitalComment on above:Performed By: #### [id number] #### [facility] (DEFAULT) [address] [place] [address] 11989FN NitriteNegativeNormalNEGATIVEMagruder HospitalComment on above:Performed By: #### [id number] #### [facility] (DEFAULT) [address] [place] [address] 75862FH pH6.4Ccxzgm8-6Umziezos HospitalComment on above: Performed By: #### [id number] #### [facility] (DEFAULT) [address] [place] [address] 65854VG ProteinNegativeNormalNEGATIVEMagruder HospitalComment on above:Performed By: #### [id number] #### [facility] (DEFAULT) [address] [place] [address] 18159VK Spec Grav1.252Jrhxvh8.001-1.035[facility] - YoungstownComment on above:Performed By: #### [id number] #### [facility] (DEFAULT) [address] [place] [address] 69006EO Urobilinogen0.2 mg/dLNormal0.2-1.0[facility] Comment on above:Performed By: #### [id number] #### [facility] [address] [place] [address] 42570Tbzsg SourceClean CatchNormalSelect Medical Specialty Hospital - YoungstownComment on above:Performed By: #### [id number] #### [facility] (DEFAULT) [address] [place] [address] 40954DKB W Auto Differential panel (Bld)on 69-99-0015Beggavuyu (Bld) [#/Vol]0.04 10*3/uLNormal<0.11CSheltering Arms HospitalComment on above: Order Comment: Specimen Type: BLOOD SPECIMEN Ordering Facility: [facility] Address: [address] [place], [place] [address]Performed By: #### 40550-3 #### [facility] CLIA [id number] [address] [place] [address] 31914Uesybgjzv/100 WBC (Bld)0.7 %NormalAultman Hospital Comment on above:Order Comment: Specimen Type: BLOOD SPECIMEN Ordering Facility: [facility] Address: [address] [place], [place] [address]Performed By: #### 06968-1 #### [facility] CLIA [id number] [address] [place], [place] [address]Aismrjdbiobu cell count method Nom (Bld)AutoNormalCSheltering Arms HospitalCommunson healthcare [facility] on above:Order Comment: Specimen Type: BLOOD SPECIMEN Ordering Facility: [facility] Address: [address] [place], [place] [address]Performed By: #### 85005-0 #### [facility] CLIA [id number] [address] [place], [place] [address]Mejvrhngfze (Bld) [#/Vol]0.06 10*3/uLNormal<0.46[facility] on above:Order Comment: Specimen Type: BLOOD SPECIMEN Ordering Facility: [facility] Address: [address] [place], [place] [address]Performed By: #### 80928-3 #### [facility] CLIA [id number] [address] [place], [place] [address]Vjtzulpzcak/100 WBC (Bld)1.0 %NormalAultman Hospital Comment on above:Order Comment: Specimen Type: BLOOD SPECIMEN Ordering Facility: [facility] Address: [facility] [place], [place] [address]Performed By: #### 93410-9 #### [facility] CLIA [id number] [address] [place] [address] 30246Dkfijvrqsjl distribution width (RBC) [Ratio]13.3 %Normal 11.5-15.0[facility] on above:Order Comment: Specimen Type: BLOOD SPECIMEN Ordering Facility: [facility] Address: [address] [place], [place] [address]Performed By: #### 76927-1 #### [facility] CLIA [id number] [address] [place] [address] 76570Qgmnepvppe (Bld) [Volume fraction]34.4 %Low36.0-46.0[facility] on above:Order Comment: Specimen Type: BLOOD SPECIMEN Ordering Facility: [facility] Address: [address] [place], [place] [address]Performed By: #### 99342-9 #### [facility] CLIA [id number] [address] [place] [address] 31087Tnjsbcyqxl (Bld) [Mass/Vol]11.9 g/sFGsqgie38.5-15.5CShelby Memorial Hospital on above:Order Comment: Specimen Type: BLOOD SPECIMEN Ordering Facility: [facility] Address: [address] [place], [place] [address]Performed By: #### 66762-6 #### [facility] CLIA [id number] [address] [place] [address] 64577Utowvxcp granulocytes (Bld) [#/Vol]10*3/uLNormal<0.10[facility] on above:Order Comment: Specimen Type: BLOOD SPECIMEN Ordering Facility: [facility] Address: [address] [place], [place] [address]Performed By: #### 44330-9 #### [facility] CLIA [id number] [address] [place] [address] 81665Vgdhmjun granulocytes/100 WBC (Bld)0.3 %NormalAvita Health System Galion Hospital on above:Order Comment: Specimen Type: BLOOD SPECIMEN Ordering Facility: [facility] Address: [address] [place], [place] [address]Performed By: #### 41436-3 #### [facility] CLIA [id number] [address] [place] [address] 22575Uhzdwdysjmd (Bld) [#/Vol]2.00 10*3/uLNormal1.00-4.00[facility] on above:Order Comment: Specimen Type: BLOOD SPECIMEN Ordering Facility: [facility] Address: [address] [place], [place] [address]Performed By: #### 38911-0 #### [facility] CLIA [id number] [address] [place] [address] 98082Ywnfmcusclb/100 WBC (Bld)33.4 %NormalAvita Health System Galion Hospital on above:Order Comment: Specimen Type: BLOOD SPECIMEN Ordering Facility: [facility] Address: [address] [place], [place] [address]Performed By: #### 42537-8 #### [facility] CLIA [id number] [address] [place] [address] 84595UWD (RBC) [Entitic mass]30.5 raTygnhr60.0-34.0[facility] on above:Order Comment: Specimen Type: BLOOD SPECIMEN Ordering Facility: [facility] Address: [address] [place], [place] [address]Performed By: #### 45010-3 #### [facility] CLIA [id number] [address] [place] [address] 11643GSLX (RBC) [Mass/Vol]34.6 g/dCQgsoqz12.5-36.0[facility] on above:Order Comment: Specimen Type: BLOOD SPECIMEN Ordering Facility: [facility] Address: [address] [place], [place] [address]Performed By: #### 83368-6 #### [facility] CLIA [id number] [address] [place] [address] 75171WRN (RBC) [Entitic vol]88.2 jCQlzese71.0-100.0[facility] on above:Order Comment: Specimen Type: BLOOD SPECIMEN Ordering Facility: [facility] Address: [address] [place], [place] [address]Performed By: #### 18098-4 #### [facility] CLIA [id number] [address] [place] [address] 68764Vnowszbfd (Bld) [#/Vol]0.42 10*3/uLNormal<0.87[facility] on above:Order Comment: Specimen Type: BLOOD SPECIMEN Ordering Facility: [facility] Address: [address] [place], [place] [address]Performed By: #### 79759-4 #### [facility] CLIA [id number] [address] [place] [address] 94548Wbcnyhpfm/100 WBC (Bld)7.0 %NormalAultman Hospital Comment on above:Order Comment: Specimen Type: BLOOD SPECIMEN Ordering Facility: [facility] Address: [address] [place], [place] [address]Performed By: #### 93067-0 #### [facility] CLIA [id number] [address] [place], [place] [address]Wsrqstkgtdg (Bld) [#/Vol]3.44 10*3/uLNormal1.45-7.50[facility] on above:Order Comment: Specimen Type: BLOOD SPECIMEN Ordering Facility: [facility] Address: [address] [place], [place] [address]Performed By: #### 62751-5 #### [facility] CLIA [id number] [address] [place], [place] [address]Ehjzbutetzn/100 WBC (Bld)57.6 %NormalAvita Health System Galion Hospital on above:Order Comment: Specimen Type: BLOOD SPECIMEN Ordering Facility: [facility] Address: [address] [place], [place] [address]Performed By: #### 97053-0 #### [facility] CLIA [id number] [address] [place] [address] 03387Ikwseinna RBC (Bld) [#/Vol]10*3/uLNormal<0.01[facility] on above:Order Comment: Specimen Type: BLOOD SPECIMEN Ordering Facility: [facility] Address: [address] [place], [place] [address]Performed By: #### 55916-2 #### [facility] CLIA [id number] [address] [place] [address] 39045Lyrvydqnt RBC/100 WBC (Bld) [Ratio]0.0 /100 WBCNormalCShelby Memorial Hospital on above:Order Comment: Specimen Type: BLOOD SPECIMEN Ordering Facility: [facility] Address: [address] [place], [place] [address]Performed By: #### 00763-3 #### [facility] CLIA [id number] [address] [place] [address] 17807Ilabklgl mean volume (Bld) [Entitic vol]8.6 fLLow9.0-12.7 [facility] on above:Order Comment: Specimen Type: BLOOD SPECIMEN Ordering Facility: [facility] Address: [address] [place], [place] [address]Performed By: #### 16976-8 #### [facility] CLIA [id number] [address] [place], [place] [address]Qsbtjrnyb (Bld) [#/Vol]482 10*3/sMQwka369-716YpukrqiraAvita Health System Galion Hospital on above:Order Comment: Specimen Type: BLOOD SPECIMEN Ordering Facility: [facility] Address: [address] [place], [place] [address]Performed By: #### 70460-3 #### [facility] CLIA [id number] [address] [place], [place] [address]HME (Bld) [#/Vol]3.90 10*6/uLNormal3.90-5.20[facility] on above:Order Comment: Specimen Type: BLOOD SPECIMEN Ordering Facility: [facility] Address: [address] [place], [place] [address]Performed By: #### 10752-3 #### [facility] CLIA [id number] [address] [place] [address] 79837QET (Bld) [#/Vol]5.98 10*3/uLNormal3.70-11.00[facility] on above:Order Comment: Specimen Type: BLOOD SPECIMEN Ordering Facility: [facility] Address: [address] [place], [place] [address]Performed By: #### 17339-9 #### [facility] CLIA [id number] [address] [place], [place] [address]LYW CBC W AUTO DIFF BLDon 03-31-8488Oxlhzekng/100 WBC (Bld)0.7 %NOM[facility] HealthcareCCF BASOPHILS # BLD AUTO0.04NINFNOUniversity Health Lakewood Medical CenterCCF DIFFERENTIAL METHOD BLDAutoNOMS HealthcareCCF EOSINOPHIL # BLD AUTO0.06NINFNOUniversity Health Lakewood Medical Center CCF LYMPHOCYTES # BLD [id number] HealthcareCCF MONOCYTES # BLD AUTO0.42NINFNOUniversity Health Lakewood Medical CenterCCF NEUTROPHILS # BLD AUTO3.44[facility] NRBC # BLD AUTO<0.01 NINFSaint Mary's Health CenterF NRBC/100 WBC BLD-RTO0/100 WBCCoxHealth PLATELET # BLD [id number] PMV BLD AUTO8.6 fLLow9.0 - 12.7 fLCoxHealth WBC # BLD AUTO5.98NOUniversity Health Lakewood Medical CenterEosinophils/100 WBC (Bld)1 %[facility] Specialty HospitalErythrocyte distribution width (RBC) [Ratio]13.3 %11.5 - 15.0 %[facility]ty HospitalHematocrit (Bld) [Volume fraction]34.4 %Low36.0 - 46.0 %[facility] HospitalHemoglobin (Bld) [Mass/Vol]11.9 g/dL11.5 - 15.5 g/dLPhelps Health GRANULOCYTES # BLD AUTO<0.03NINFPhelps Health GRANULOCYTES/LEUK NFR BLD AUTO0.3 %[facility] HealthcareInterpretation and review of laboratory resultsAbnormal [facility] HospitalLymphocytes/100 WBC (Bld)33.4 %[facility]ty HospitalMCH (RBC) [Entitic mass]30.5 pg26.0 - 34.0 pgSSM Saint Mary's Health CenterHC (RBC) [Mass/Vol]34.6 g/dL30.5 - 36.0 g/dLSelect Specialty HospitalMCV (RBC) [Entitic vol]88.2 fL80.0 - 100.0 fLSelect Specialty HospitalMonocytes/100 WBC (Bld)7 %[facility] HospitalNeutrophils/100 WBC (Bld)57.6 %[facility] Specialty HospitalRBC (Bld) [#/Vol]3.9 10*6/uL3.90 - 5.20 m/uLSelect Specialty Hospital Specimen Type: BLOOD SPECIMEN Ordering Facility: [facility] Address: [address] [place] [address] Original Ordering Provider: TITUS GOMEZ HealthcareCoding Summaryon 03-27-7159Mvdmsx SummaryHTMLBase 64 DyzrlzqyJNh8qYl+PGhlYWQ+PS8MZJOgE00hmOTvgW8dC2XBAAuVWeyhSOMPQGyFYwCqxaUnYW9fdZLu ZXJu [file] IGN (more content not included)...[facility] HospitalCoding Summaryon 31-70-1114Hgdjqb SummaryHTMLBase 64 XplykontMJb5mQu+PGhlYWQ+JM7CGEBkJ51dfTRwvK8oI0GTQCmDOodbQYCBKZcKRyPqsaGjRV1ryBQx ZXJu [file] bGx (more content not included)...[facility] HospitalProgress Note - Nurseon 74-05-4203Snjtrkok Note - Nurse [id number]#1.00[facility] Telemetry Stripson 26-00-5444Ynvwwbbjx Strips [id number]#1.00[facility] HospitalBMP Standardon 02-36-9041aYES Non AA>60Invalid Interpretation [facility] Comment on above:Performed By: #### [id number], [id number], [id number] #### [facility] (DEFAULT) [address] [place] [address] 02678qKAC AA>60Invalid Interpretation [facility] Comment on above:Performed By: #### [id number], [id number], [id number] #### [facility] (DEFAULT) [address] [place] [address] 63137Upauyrb [Mass/Vol]7.7 mg/dLLow8.9-10.3MRegency Hospital [facility] Comment on above:Performed By: #### [id number], [id number], [id number] #### [facility] (DEFAULT) [address] [place] [address] 11207Yxmhyota [Moles/Vol]106 mmol/ACqyxhq929-570Xlqdufrb[address] [place], [place] [address]Comment on above:Performed By: #### 7247087, 88712358, [id number] #### [facility] (DEFAULT) [address] [place] [address] 78542JW2 [Moles/Vol]24 mmol/GZkukvh68-65Swcgdaxv Hospital Comment on above:Performed By: #### 8726633, 70980075, [id number] #### [facility] (DEFAULT) [address] [place] [address] 97575Bxevxrzvfp [Mass/Vol]0.57 mg/dLLow0.60-1.30[facility] YoungstownComment on above:Performed By: #### 7641778, 64452966, [id number] #### [facility] (DEFAULT) [address] [place] [address] 03097Ffxredt [Mass/Vol]95.0 mg/fMFbaxwd42.0-118.0[facility] YoungstownComment on above:Performed By: #### 5311047, 79714953, [id number] #### [facility] (DEFAULT) [address] [place] [address] 02869Zhnrhsfts [Moles/Vol]2.5 mmol/LCritically abnormal3.6-5.1 [facility] - YoungstownComment on above:Result Comment: Critical result K 2.5 mmol/L called to and read back by Augustus Augustine RN at 12-Feb-2024 10:12 by FAHAD. Performed By: #### [id number], 01282847, [id number] #### [facility] (DEFAULT) [address] [place] [address] 83669Yallyz [Moles/Vol]138.0 mmol/YTnsihq229.0-144.0[facility] - YoungstownComment on above:Performed By: #### 7091351, [id number], [id number] #### [facility] (DEFAULT) [address] [place] [address] 72154Czni nitrogen [Mass/Vol]8 mg/dLNormal8-26[facility] Comment on above:Performed By: #### 9456277, [id number], [id number] #### [facility] (DEFAULT) [address] [place] [address] 23490Hevdf gap [Moles/Vol]10.5 mmol/LNormal5.0-19.0[facility] HospitalComment on above:Performed By: #### 3338599, 03674781, [id number] #### [facility] (DEFAULT) [address] [place] [address] 10126Wufbsvbawv444 mOsm/LInvalid Interpretation [facility] HospitalComment on above:Performed By: #### 3763071, 59251727, [id number] #### [facility] (DEFAULT) [address] [place] [address] 98067Mgsj nitrogen/Creatinine [Mass ratio]14.0 mg/mgNormal 4.6-16.2[facility] HospitalComment on above:Performed By: #### 2966958, 71825645, [id number] #### [facility] (DEFAULT) [address] [place] [address] 66780Abhvq [place] 83-63-1327Unqi CollectedYesInvalid Interpretation CodeSelect Medical Specialty Hospital - YoungstownComment on above:Performed By: #### 0722932, [id number], [id number] #### [facility] (DEFAULT) [address] [place] [address] 16341Vogumpxxc Patient Summaryon 37-61-7292Gowuzizuw Patient Summary[address] [address] Patient Discharge Instructions Name: ALLAN BURR : 1985 Patient Address: [address] [place] [address] Primary Care Provider: Name: MARIYA HUERTA Phone: After you are discharged if you find you have any questions, please, call [phone] ext [phone] to speak to a nurse. The Pharmacy at [facility] is open Wednesday through Wednesday from 9A to 6P and Wednesday and Wednesday from 9A to 5P Discharge Diagnosis: 1:Hypokalemia; 2:Pneumonia involving right lung; Failure of outpatient treatment; History of gastric bypass; Hypomagnesemia; Pneumonia Prescription Information: If you have been given a prescription for narcotics, seek immediate medical attention if you have any difficulty breathing or any sudden status changes such as confusion andsleepiness. If you or anyone you know is experiencing suicidal thoughts, mental health, alcohol and/or drug addiction problems; contact the [facility] 02/11 Crisis Hotline -Text 4HHXN jj [phone]. If you received any narcotics, sedation, or [...] business decisions or sign any legal documents [facility] would like to thank you for allowing us to assist you with your healthcare needs.The following includes patient education materials and information regarding your injury/illness. ALLAN BURR has been given the following list of follow-up instructions, prescriptions, and patient education materials: Follow-up Instructions With: Address: When: MARIYA HUERTA Medications During the course of your visit, your medication list was updated with the most current information. The details of those changes are reflected below: New Medications [facility]/pharm[facility] #[id number], [address] [place], [place] [id number], [phone] acetaminophen-dextromethorphan (Robitussin Maximum Strength Severe Cough Plus Sore Throat 650 mg-20mg/20 mL oral liquid) 20 Milliliter Oral (given by mouth) every 4 hours as needed as needed for cough. Refills: 0. hydrocortisone topical (hydrocortisone 0.5% topical cream) 1 ada Topical (on the skin) 2 times per day. Refills: 0. levoFLOXacin (levoFLOXacin 750 mg oral tablet) 1 tab(s) Oral (given by mouth) every 24 hours. for 7Days. Refills: 0. Medications That Were Updated - [...] list that you can keep with you. acetaminophen-dextromethorphan (Robitussin Maximum Strength Severe Cough Plus Sore Throat 650 mg-20mg/20 mL oral liquid) 20 Milliliter Oral (given by mouth) every 4 hours as needed as needed for cough. Refills: 0. albuterol (Albuterol (Eqv-ProAir HFA) 90 mcg/inh inhalation aerosol) 2 inh Inhale (breathe in) every 4 hours as needed wheezing. ascorbic acid (Vitamin C) 250 Milligram Oral (given by mouth) every day. ethinyl estradiol-levonorgestrel (Amethia oral tablet) 1 tab(s) Oral (given by mouth) every day. hydrocortisone topical (hydrocortisone 0.5% topical cream) 1 ada Topical (on the skin) 2 times per day. Refills: 0. levoFLOXacin (levoFLOXacin 750 mg oral tablet) 1 tab(s) Oral (given by mouth) every 24 hours. for 7Days. Refills: 0. multivitamin, (Classic ) 1 tab(s) Oral (given by mouth) every day. phentermine (phentermine 37.5 mg oral tablet) TAKE 1 TABLET BY MOUTH ONCE DAILY. tirzepatide (tirzepatide 7.5 mg/0.5 mL subcutaneous solution) 7.5 Milligram Subcutaneous (under theskin) every week. Take (more content not included)...NormalMagruder HospitalMagnesiumon 02-12-2024 Magnesium [Mass/Vol]1.90 mg/dLNormal1.80-2.50[facility] HospitalComment on above: Performed By: #### [id number], [id number], [id number] #### [facility] (DEFAULT) [address] [place] [address] 57915Hvpbiuzyt Lvlon 65-40-9747Yegstisvq [Moles/Vol]3.0 mmol/L Low3.6-5.1[facility] HospitalComment on above:Result Comment: Potassium Therapy : per DustyPerformed By: #### [id number] ####[facility] (DEFAULT)[address] [place] [address]77[address].Auto Diff 1on 73-72-9751Winz Hood %5 %Normal1-12 [facility] YoungstownComment on above:Performed By: #### 2569470, [id number], [id number], [id number] ####[facility] (DEFAULT)[address] [place] [address] 73087Rvld Abs#0.0 w72Ylfust3.0-0.2[facility] HospitalComment on above: Performed By: #### 5245222, 72855224, [id number], [id number] ####[facility] (DEFAULT)[address] [place] [address] 45460Dwffraerr/100 WBC (Bld)0.1 %Low 0.2-2.0[facility] HospitalComment on above:Performed By: #### 3569844, 84245667, [id number], [id number] ####[facility] (DEFAULT)[address] [place] [address] 22688Gal Abs#0.0 i85Kffbie2.0-0.4[facility] HospitalComment on above:Performed By: #### 9877071, 75399220, [id number], [id number] ####[facility] (DEFAULT)[address] [place] [address] 42185Wojquptwzyo/100 WBC (Bld)0.0 %Low 0.9-4.0[facility] HospitalComment on above:Performed By: #### 3928611, [id number], [id number], [id number] ####[facility] (DEFAULT)[address] [place], [place] [address]Lymph Abs#0.6 v95Ojg2.3-2.9[facility] HospitalComment on above:Performed By: #### [id number], [id number], [id number], [id number] ####[facility] (DEFAULT)[address] [place], [place] [address]Lymphocytes/100 WBC (Bld)9 %Low 14-48[facility] HospitalComment on above:Performed By: #### [id number], [id number], [id number], [id number] ####[facility] (DEFAULT)[address] [place], [place] [address]Mono Abs#0.3 k49Gctqbe9.0-0.8[facility] HospitalComment on above: Performed By: #### [id number], [id number], [id number], [id number] ####[facility] (DEFAULT)[address] [place], [place] [address]Neut Abs#6.1 d08Ojxgjm0.5-9.2 [facility] HospitalComment on above:Performed By: #### [id number], [id number], [id number], [id number] ####[facility] (DEFAULT)[address] [place] [address] 32051Dxmcokcpmkz/100 WBC (Bld)86 %Ahjkym36-90[facility] HospitalComment on above:Performed By: #### [id number], [id number], [id number], [id number] ####[facility] (DEFAULT)[address] [place] [address] 15957TSA w/ Auto Diffon [id number] distribution width (RBC) [Ratio]13.1 %Mcorxc64.5-15.0 [facility] HospitalComment on above:Performed By: #### 2021862, 16129309, 9551695651, 9095059 ####[facility] (DEFAULT)[address] [place], [place] [address]Pacchofnja (Bld) [Volume fraction]30.2 %Low33.7-40.4[facility] Comment on above:Performed By: #### 5555454, 15204519, 3799666829, 0552175 ####[facility] (DEFAULT)[address] [place] [address] 14656Xomsengrsg (Bld) [Mass/Vol]10.6 g/dLLow11.3-15.9[facility] [place]Comment on above:Performed By: #### 2346111, 80284443, 0778494500, 3332682 ####[facility] (DEFAULT)[address] [place] [address] 63396Djd Diff?AutoInvalid Interpretation CodeSelect [facility] Specialty Hospital - YoungstownComment on above:Performed By: #### 2659349, 75039749, 6385342400, 7210971 ####[facility] (DEFAULT)[address] [place] [address] 24647VBO (RBC) [Entitic mass]30 stXxlmtf42-11Epidqdem HospitalComment on above:Performed By: #### 8537805, 08724050, 6473610115, 9964391 ####[facility] (DEFAULT)[address] [place] [address] 05483 MCHC (RBC) [Mass/Vol]35 g/uPZbnzgl54-75Bkafuyen HospitalComment on above: Performed By: #### 8997418, 11099429, 1988117756, 1353901 ####[facility] (DEFAULT)[address] [place] [address] 08221TJK (RBC) [Entitic vol]87 fL Fxrsxl47-686Vkdzfisv HospitalComment on above:Performed By: #### 7248923, 92651049, 1068905776, 0565927 ####[facility] (DEFAULT)[address] [place] [address] 93284Gafydiqd072 i05Sbhlkp905-233Lzbvvgls HospitalComment on above:Performed By: #### 8918970, 04426982, 6616959977, 9836344 ####[facility] (DEFAULT)[address] [place] [address] 68627Hpudaehq mean volume (Bld) [Entitic vol]7.0 fLNormal6.3-10.2[facility] HospitalComment on above: Performed By: #### 7273465, 47737065, 6903785302, 5264390 ####[facility] (DEFAULT)[address] [place] [address] 12363SOE8.47 q66Oce1.70-5.30[facility] HospitalComment on above:Performed By: #### 0030514, 59707858, 4469889206, 6661242 ####[facility] (DEFAULT)[address] [place] [address] 68144IQY 7.1 i90Rgsgfj6.5-10.5[facility] HospitalComment on above:Performed By: #### 1578498, 68340666, 3823834694, 0125583 ####[facility] (DEFAULT)[address] [place] [address] 08612SEH Standardon 04-12-0648nYHL Non AA>60Invalid Interpretation [facility] HospitalComment on above:Performed By: #### 1872927, 66308240, 0927016440, 9146356 ####[facility] (DEFAULT)[address] [place] [address] 72703oDUQ AA>60Invalid Interpretation CodeGenesis Hospital HospitalComment on above:Performed By: #### 2913199, 63441959, 4075593182, 8580172 ####[facility] (DEFAULT)[address] [place] [address] 72421 Albumin [Mass/Vol]2.5 g/dLLow3.5-5.0[facility] HospitalComment on above:Performed By: #### 0892415, 15145075, 5148262809, 5407237 ####[facility] (DEFAULT)[address] [place] [address] 39749Uodougx/Globulin [Mass ratio]0.7 {ratio}Low1.4-2.6[facility] HospitalComment on above:Performed By: #### 8355167, 23806794, 9024473266, 0564315 ####[facility] (DEFAULT)[address] [place], [place] [address]Cvi Phos72 IU/EAiiqis19-61Dnuadnso HospitalComment on above:Performed By: #### 2888215, 30213982, 2650361587, 3242515 ####[facility] (DEFAULT)[address] [place] [address] 76788VYT [Catalytic activity/Vol]28.0 U/CKkyrgz64.0-54.0[facility] HospitalComment on above:Performed By: #### 6957617, 31872672, 0243839800, 6919190 ####[facility] (DEFAULT)[address] [place] [address] 11347Fbbph gap [Moles/Vol]11.3 mmol/L Normal5.0-19.0[facility] HospitalComment on above:Performed By: #### 4579373, 71276156, 9998764931, 2321401 ####[facility] (DEFAULT)[address] [place] [address] 85308DLS [Catalytic activity/Vol]19 U/FDtjvpq58-17 [facility]Comment on above:Performed By: #### 3872383, 63666409, 9238320591, 6191903 ####[facility] (DEFAULT)[address] [place] [address] 26816Hnmd Total0.4 mg/dLNormal0.3-1.2[facility] HospitalComment on above: Performed By: #### 0493445, 47574023, 4705066817, 8565653 ####[facility] (DEFAULT)[address] [place] [address] 54899Npcjgsa [Mass/Vol]8.1 mg/dLLow 8.9-10.3[facility] HospitalComment on above:Performed By: #### 5723196, 58387248, 2679717367, 6015140 ####[facility] (DEFAULT)[address] [place], [place] [address]Ffzrbctu [Moles/Vol]105 mmol/KTnyuub150-937Tljmuttf HospitalComment on above:Performed By: #### 7463780, 38040641, 1726002061, 5115792 ####[facility] (DEFAULT)[address] [place] [address] 89879AL8 [Moles/Vol]24 mmol/L Whbzbw62-43Yvrxbrpq HospitalComment on above:Performed By: #### 2975203, 24559289, 2609643084, 4339294 ####[facility] (DEFAULT)[address] [place] [address] 48693Jsiebugadw [Mass/Vol]0.41 mg/dLLow0.60-1.30[facility]stownComment on above:Performed By: #### 7714563, 23182604, 8445724935, 7609171 ####[facility] (DEFAULT)[address] [place] [address] Globulin (S) [Mass/Vol]3.3 g/dLNormal1.5-4.3[facility] HospitalComment on above: Performed By: #### 1095042, 11505442, 8681276110, 2596902 ####[facility] (DEFAULT)[address] [place] [address] 27330Voycmep [Mass/Vol]128.0 mg/dLHigh 74.0-118.0[facility]stownComment on above:Performed By: #### 8516418, 62967563, 2013034385, 3340335 ####[facility] (DEFAULT)[address] [place] [address] 65325Wrpjywavth619 mOsm/LInvalid Interpretation Code [facility] YoungstownComment on above:Performed By: #### 3081539, 82251808, 7486089633, 4480732 ####[facility] (DEFAULT)[address] [place] [address] 75912Oeqvyijrt [Moles/Vol]3.3 mmol/LLow3.6-5.1[facility] HospitalComment on above:Performed By: #### 7915132, 46201036, 0929807842, 0896392 ####[facility] (DEFAULT)[address] [place] [address] 39006Kkunaky [Mass/Vol]5.8 g/dLLow6.5-8.1[facility] HospitalComment on above:Performed By: #### 9024578, 03710296, 4695908225, 5284127 ####[facility] (DEFAULT)[address] [place], [place] [address]Cnbllg [Moles/Vol]137.0 mmol/ZNihpvs046.0-144.0 [facility]stownComment on above:Performed By: #### 1916441, 51454343, 1780786867, 4354362 ####[facility] (DEFAULT)[address] [place] [address] 36374Xszv nitrogen [Mass/Vol]9 mg/dLNoal8-26[facility] YoungstownComment on above:Performed By: #### 6588245, 54183065, 2031622774, 7903725 ####[facility] (DEFAULT)[address] [place] [address] 34120Cwvv nitrogen/Creatinine [Mass ratio]21.9 mg/mgHigh4.6-16.2MRegency Hospital ToledoComment on above:Performed By: #### 3038683, 07853614, 2757478021, 8265237 ####[facility] (DEFAULT)[address] [place] [address] 72351Ogvycge Formson 22-04-1900Dakjfcr [id number]#1.00OTGTPar[facility] ED Note-Nursingon 83-11-1656ZD Note-NursingPatient admitted to the floor, hospitalist to review cultures. [facility]. [facility] HospitalMagnesiumon 49-99-3991Ecnruuqch [Mass/Vol]1.61 mg/dLLow1.80-2.50[facility]stownComment on above:Performed By: #### 9329812, 10299218, 4617765559, 8106457 ####[facility] (DEFAULT)[address] [place] [address] Nutrition Noteon 74-79-5469Dqxojduzr Note38 yo female admitted for pneumonia of rt lung and hypokalemia. [...] time, RDN to remain available and assist prn.[facility] HospitalTelemetry Stripson 90-25-1437Lllcuexkg Strips [id number]#1.00OTGTParma Community [facility] Hospital.Auto Diff 1on 09-25-2745Niyc Hood %6 %Normal1-12[facility]stownComment on above: Performed By: #### 3371766608, 7367864, 1064267, 19644983, 5316244075, 7873489, 6896826914, 6879073022 ####[facility] (DEFAULT)[address] [place], [place] [address]Brib Abs#0.0 w77Vlzsxs4.0-0.2[facility] HospitalComment on above: Performed By: #### 6945294471, 6263310, 3179130, 57294786, 0343237877, 1187285, 9755810138, 5571551920 ####[facility] (DEFAULT)[address] [place], [place] [address]Wvlnipoeo/100 WBC (Bld)0.1 %Low0.2-2.0[facility]uder HospitalComment on above:Performed By: #### 2299710275, 3415324, 5444407, 42128247, 7077810019, 9192150, 4736178187, 5409602747 ####[facility] (DEFAULT)[address] [place] [address] 70505Pns Abs#0.0 y40Cmphxl6.0-0.4[facility] HospitalComment on above:Performed By: #### 0636285564, 9173326, 4705598, 40977906, 4188282015, 7595384, 6248135992, 9869912864 ####[facility] (DEFAULT)[address] [place] [address] 49283Elikanlitgs/100 WBC (Bld)0.2 %Low0.9-4.0[facility]uder HospitalComment on above:Performed By: #### 8614639996, 6794734, 6475926, 38045084, 7062757243, 5065365, 1855658194, 4918817174 ####[facility] (DEFAULT)[address] [place] [address] 76664Eryii Abs#0.6 h62Cdn3.3-2.9 [facility] HospitalComment on above:Performed By: #### 6815550751, 7588338, 2422604, 77495410, 7190454969, 0836796, 3394910155, 2200230672 ####[facility] (DEFAULT)[address] [place] [address] 98144Qvkrwfyebuk/100 WBC (Bld)8 %Zsi66-76Mzxkecgz HospitalComment on above:Performed By: #### 0298055015, 2541061, 7279202, 80107795, 8815291858, 3894986, 9097892127, 8117780882 ####[facility] (DEFAULT)[address] [place] [address] 61131Sliw Abs# 0.5 l40Fjugxi2.0-0.8Mag[facility]uder HospitalComment on above:Performed By: #### 4680640802, 5322970, 2507688, 04808105, 5219049386, 4085679, 1544753497, 8104485599 ####[facility] (DEFAULT)[address] [place] [address] 56819Yxou Abs#7.0 k84Ojdrfl3.5-9.2[facility] HospitalComment on above:Performed By: #### 9950359436, 2327880, 3058338, 54234543, 2729081067, 4956855, 0122440323, 6020823812 ####[facility] (DEFAULT)[address] [place] [address] 46036Odqqktiwhdu/100 WBC (Bld)86 %Bafvxo91-15Lccuwe[address] [place] [address] Comment on above:Performed By: #### 2159331009, 9530884, 0330111, 68651387, 6646581446, 3705378, 0496764773, 2971145369 ####[facility] (DEFAULT)[address] [place] [address] 85404.QC SARS-CoV-2 (COVID-19)/Flu/RSV (GeneXpert) on 31-11-7867Clkgsnll ControlPassSt. Vincent HospitalComment on above:Order Comment: Ordered by Discern.[GL_[email or web address]_QC]Performed By: #### 3120006, 37756775, 6056121804 #### [facility] (DEFAULT) [address] [place] [address] 19515UQM.on 38-14-4362Hciodmwe ControlPassSt. Vincent HospitalComment on above:Performed By: #### 0390679794, 0953740, 4713333, 63378897, 7311480920, 8569879, 1173807253, 7130108687 ####[facility] (DEFAULT)[address] [place] [address] 54298Xvsbyhtgijn peptide B (Bld) [Mass/Vol]15.6 pg/mLNormal0.0-100.0[facility] HospitalComment on above:Result Comment: BNP results greater than 100 pg/mL are considered abnormal and suggestive of patients with CHF. Higher BNP concentrations measured in the first 72 hours after an acute coronary syndorme are associated with an increased risk of , myocardial infarction, and CHF.Performed By: #### 7079029630, 3476434, 6661102, 57803395, 1770742011, 3110508, 9721646892, 2147100812 ####[facility] (DEFAULT)[address] [place] [address] 30418ETP w/ Auto Diffon 67-55-6993Ldngsefuofu distribution width (RBC) [Ratio]13.2 %Normal 11.5-15.0[facility] YoungstownComment on above:Performed By: #### 8097616700, 6148533, 4999528, 10247093, 0482858255, 6419238, 7776038971, 3816134669 ####[facility] (DEFAULT)[address] [place] [address] 76355Oqfeizbvsj (Bld) [Volume fraction]36.2 %Qtjujm15.7-40.4[facility] - YoungstownComment on above: Performed By: #### 4412114014, 6453704, 9724202, 13227688, 1749580592, 9246953, 9436301937, 3678928646 ####[facility] (DEFAULT)[address] [place] [address] 45644Rxsybgczpd (Bld) [Mass/Vol]12.5 g/aGDribhc28.3-15.9[facility] HospitalComment on above:Performed By: #### 0815004454, 8662924, 1368676, 15314423, 1617967961, 0824094, 4337189143, 1066205160 ####[facility] (DEFAULT)[address] [place] [address] 71810Rpr Diff?AutoInvalid Interpretation CodeGenesis Hospital HospitalComment on above:Performed By: #### 4898460418, 2477069, 1915392, 96801368, 5010018756, 9083738, 9642152263, 3485899218 ####[facility] (DEFAULT)[address] [place] [address] 59266XES (RBC) [Entitic mass]30 vjBgryyt32-10Uantluie HospitalComment on above: Performed By: #### 9652695746, 8185416, 1134552, 08456235, 9639941223, 2386878, 5506850212, 7944036682 ####[facility] (DEFAULT)[address] [place] [address] 00120EVLL (RBC) [Mass/Vol]34 g/yYBrhtfs12-33Zemnbdak HospitalComment on above:Performed By: #### 3506320017, 7877770, 6252407, 60512068, 5548789568, 8723644, 5705165729, 2762384679 ####[facility] (DEFAULT)[address] [place] [address] 98827NXD (RBC) [Entitic vol]87 uQWrwnjt07-056Rstmkahy HospitalComment on above:Performed By: #### 9860695896, 6494690, 7845690, 84710619, 6407056717, 5893944, 4558101101, 9373951025 ####[facility] (DEFAULT)[address] [place] [address] 48022Aystjfde919 h41Xuuwur846-585 [facility] HospitalComment on above:Performed By: #### 8708291332, 8797901, 4804181, 51015490, 4170232043, 9928508, 2810400069, 9090588974 ####[facility] (DEFAULT)[address] [place] [address] 95843Raqzhojb mean volume (Bld) [Entitic vol]6.7 fLNormal6.3-10.2[facility]rshel[facility] HospitalComment on above: Performed By: #### 8127347499, 1170693, 5924518, 85130496, 3240604310, 1491363, 9174531321, 6450133586 ####[facility] (DEFAULT)[address] [place] [address] 79902NFK2.14 o59Qucpzd7.70-5.30[facility] HospitalComment on above: Performed By: #### 4018620057, 3786004, 3453888, 18506124, 4243384941, 8201299, 7122754347, 3353737489 ####[facility] (DEFAULT)[address] [place] [address] 33838KCE3.1 w88Fzpiib1.5-10.5[facility]rs[facility] HospitalComment on above: Performed By: #### 3488175396, 1158571, 2368558, 21856671, 1222463257, 3431737, 0663015169, 2326835425 ####[facility] (DEFAULT)[address] [place] [address] 75747CQQ Standardon 62-02-8015Nbswltcuys ChemNormalGenesis Hospital HospitalComment on above:Performed By: #### 9927110068, 9163788, 8042493, 26673666, 8823345687, 1091802, 3105807850, 0298131661 ####[facility] (DEFAULT)[address] [place] [address] 36371pFVQ Non AA>60Invalid Interpretation CodeGenesis Hospital HospitalComment on above:Performed By: #### 9307931047, 2987791, 6753740, 42602171, 5172849510, 3775563, 4056355834, 0395909153 ####[facility] (DEFAULT)[address] [place] [address] 32828aNPM AA>60Invalid Interpretation CodeGenesis Hospital HospitalComment on above: Performed By: #### 4995271583, 2159627, 8844945, 77167363, 4072878182, 8701472, 8675603931, 0670960197 ####[facility] (DEFAULT)[address] [place] [address] 65965Pctnphx [Mass/Vol]3.0 g/dLLow3.5-5.0[facility]uder HospitalComment on above:Performed By: #### 9526613862, 4622253, 0582264, 47694766, 8816810757, 0820149, 3442332545, 2819777742 ####[facility] (DEFAULT)[address] [place] [address] 08523Uwwcsba/Globulin [Mass ratio]0.8 {ratio}Low1.4-2.6 [facility] HospitalComment on above:Performed By: #### 1073845303, 9433676, 3767360, 79716601, 5142539454, 6727737, 1387449186, 5178796909 ####[facility] (DEFAULT)[address] [place] [address] 25572Xdj Phos81 IU/LNormal 32-91[facility] HospitalComment on above:Performed By: #### 2606707620, 1951912, 3131786, 78553633, 9032494560, 2525697, 3145588223, 8674544781 ####[facility] (DEFAULT)[address] [place] [address] 94394JWH [Catalytic activity/Vol]29.0 U/WHvihfp27.0-54.0[facility] YoungstownComment on above:Performed By: #### 5589629976, 7250899, 0280951, 72842468, 2374559160, 1687141, 7827608313, 1822556344 ####[facility] (DEFAULT)[address] [place] [address] 27894Ddkss gap [Moles/Vol]13.0 mmol/LNormal5.0-19.0[facility] Hospital Comment on above:Performed By: #### 9000803320, 8826763, 3682254, 43610333, 2154957286, 8450590, 7575488935, 1507162939 ####[facility] (DEFAULT)[address] [place] [address] 12285WWL [Catalytic activity/Vol]19 U/KYvlrsf86-40 [facility] YoungstownComment on above:Performed By: #### 7510675279, 3326162, 8575558, 51415490, 8797384675, 8262582, 8458957755, 2489867346 ####[facility] (DEFAULT)[address] [place] [address] 93660Dxog Total0.3 mg/dL Normal0.3-1.2[facility] HospitalComment on above:Performed By: #### 7765772494, 2867984, 4131577, 35568777, 9778722848, 0798758, 2408154427, 9466890552 ####[facility] (DEFAULT)[address] [place] [address] 73682Ryiekyd [Mass/Vol]8.4 mg/dLLow8.9-10.3[facility] HospitalComment on above:Performed By: #### 5782787775, 6100877, 3082212, 22338612, 6318847697, 7511594, 2536024025, 1976068738 ####[facility] (DEFAULT)[address] [place] [address] 42535Gsxgmahu [Moles/Vol]102 mmol/BUhxbba199-927Rysdkxxe HospitalComment on above:Performed By: #### 0516179594, 2036810, 7335607, 32128336, 9278102941, 0304869, 8274242779, 0678340624 ####[facility] (DEFAULT)[address] [place] [address] 42411IK1 [Moles/Vol]23 mmol/LPpphsd24-41Tlbqxtuu Hospital Comment on above:Performed By: #### 0030431154, 0913404, 6889079, 82255650, 6879319142, 0988233, 1718221835, 7919402900 ####[facility] (DEFAULT)[address] [place] [address] 46050Qxlqgmjiuo [Mass/Vol]0.58 mg/dLLow0.60-1.30 [facility] HospitalComment on above:Performed By: #### 6947746911, 2588304, 5981273, 59006271, 3374774340, 3695022, 9043060812, 9031193513 ####[facility] (DEFAULT)[address] [place] [address] 86412Uoagmuuu (S) [Mass/Vol] 3.7 g/dLNormal1.5-4.3[facility] HospitalComment on above:Performed By: #### 1774786303, 0423473, 1509581, 90442955, 3727940970, 4470352, 1108439044, 9693052155 ####[facility] (DEFAULT)[address] [place] [address] 98384Mpmzoqk [Mass/Vol]112.0 mg/yAKobioo68.0-118.0[facility] HospitalComment on above:Performed By: #### 5472332899, 4121513, 0182294, 08640489, 9926959141, 8190568, 0175256355, 8991243755 ####[facility] (DEFAULT)[address] [place] [address] 06042Qdgmmfypoe991 mOsm/LInvalid Interpretation Code [facility] HospitalComment on above:Performed By: #### 8435034516, 0710414, 1922479, 06829987, 1450721620, 6463041, 8125273436, 7584033124 ####[facility] (DEFAULT)[address] [place] [address] 07976Tvckvpzfu [Moles/Vol] 3.0 mmol/LLow3.6-5.1[facility] HospitalComment on above:Performed By: #### 7900236226, 5756062, 3150624, 78535962, 7976721440, 7391940, 3749922412, 2662927504 ####[facility] (DEFAULT)[address] [place] [address] 20128Yvywxdw [Mass/Vol]6.7 g/dLNormal6.5-8.1[facility] HospitalComment on above: Performed By: #### 3363946384, 1119373, 2107179, 25127505, 3546724916, 0253077, 2674767639, 1152195964 ####[facility] (DEFAULT)[address] [place] [address] 33955Umfhhd [Moles/Vol]135.0 mmol/LFue793.0-144.0[facility] Comment on above:Performed By: #### 0202043152, 5411408, 9577197, 17663426, 2462054903, 1545369, 2273457505, 8217025352 ####[facility] (DEFAULT)[address] [place] [address] 68992Erre nitrogen [Mass/Vol]14 mg/dLNormal- [facility] YoungstownComment on above:Performed By: #### 3752153410, 8678897, 6118968, 93172704, 4286493168, 4736657, 6943267732, 3679969209 ####[facility] (DEFAULT)[address] [place] [address] 10304Lumu nitrogen/Creatinine [Mass ratio]24.1 mg/mgHigh4.6-16.2MRegency Hospital ToledoComment on above:Performed By: #### 9299685756, 1673177, 7681383, 99655509, 4160434467, 8848031, 3717288444, 2359004314 ####[facility] (DEFAULT)[address] [place] [address] 76800XUGFgs 02-78-3316YBIUXccuhebao (ALEC) ALLAN BURR ([id number]) 1985 F Date Time Provider Department 02/10/24 DAGOBERTO MENDEZ During your visit today, we recorded the following information about you: Dagoberto Mendez MD 02/10/2024 8:40 PM Signed I was contacted by [facility] regarding this patient, a 38 year old [...] acidophilus (PROBIOTIC ORAL) Take by mouth. - multivit-min/iron/folic/gea429 (HAIR, SKIN AND NAILS ADVANCED ORAL) Take by mouth. - calcium polycarbophil (FIBERCON ORAL) Take by mouth. - tirzepatide, weight loss (ZEPBOUND) 7.5 mg/0.5 mL pen injector Inject 7.5 mg subcutaneously one time a week. - L-NORGEST/E.ESTRADIOL-E.ESTRAD (AMETHIA ORAL) Take 1 tablet by [...] Encounter Status:Closed by DAGOBERTO MENDEZ MD on 02/10/24[facility] HospitalCOVID/Flu/RSV (GeneXpert)on [id number] (GXpert COVFLURSV)Negative NormalNegativeGenesis Hospital HospitalComment on above:Performed By: #### [id number], [id number], [id number] #### [facility] (DEFAULT) [address] [place] [address] [id number] (GXpert COVFLURSV)NegativeNormalNegativeGenesis Hospital HospitalComment on above:Performed By: #### [id number] #### [facility] (DEFAULT) [address] [place] [address] [id number] (GXpert COVFLURSV)NegativeNormalNegativeGenesis Hospital HospitalComment on above:Performed By: #### [id number], [id number] #### [facility] (DEFAULT) [address] [place] [address] [id number] (COVID-19) RNA ALBERTO+probe Ql (Unsp spec)Negative NormalNegativeSelect Medical Specialty Hospital - YoungstownComment on above:Result Comment: Performed by PCR methodology.Performed By: #### [id number], [id number] #### [facility] (DEFAULT) [address] [place], [place] [id number] PE Chest w/ Contraston [id number] PE Chest w/ ContrastEXAMINATION: CT PE Chest w/ Contrast HISTORY: Right-sided [...] Alex Hawkins MD 02/10/24 10:27 p Technologist: [facility]ED Clinical Summaryon [id number] Clinical Summary[facility] [place] - [facility] [address] [place], [place] [id number] ED Clinical Summary PERSON INFORMATION Name: ALLAN BURR Age: 38 Years Sex: FEMALE : 1985 MRN: Acct#: Visit Reason: Medical problem reevaluation; Cough; HYPOKALEMIA, PNEUMONIA, PNEUMONIA INVOLVING RT LUNG, FAILURE OF OUTPATIENT TREATMENT Arrival: 02/10/2024 16:24:54 Discharge: LOS: 000 07:13 Check In: 02/10/2024 16:24:54 Checkout:02/10/2024 23:37:08 Address: [address] [place] [id number] PCP: MARIYA HUERTA PROVIDER INFORMATION Provider Role Assigned Unassigned Isela Jordan STEAM [employer]TER Nurse 02/10/2024 16:38:08 Luciano Lomax MD ED Provider 02/10/2024 16:39:57 Krystal Lundberg RN ED Nurse 02/10/2024 18:20:04 02/10/2024 19:32:29 Zeny Tejeda RN ED Nurse 02/10/2024 19:32:30 Henrik Godwin DO ED Provider 02/10/2024 20:07:36 VITALS INFORMATION Vital Sign Triage Latest Temperature Tympanic Temperature Temporal Artery 36.1 DegC Pulse Rate 108 bpm 104 bpm O2 Sat 99 % 98 % Respiratory Rate 16 br/min 18 br/min Blood Pressure /103 mmHg /103 mmHg MEDICAL INFORMATION Medications Given: Medication Dose Route albuterol-ipratropium (albuterol-ipratropium 2.5 mg-0.5 mg/3 mL inhalation solution) 3 mL NebulizedInhalation methylPREDNISolone (SOLU-Medrol) 125 mg IV Push potassium [...] being treated for bronchitis was seen at [facility] and placed on antibiotics and steroids. States [...] Vitamin D3: PO, Daily Zinc: PO, Daily amoxicillin-clavulanate 875 mg-125 mg oral tablet: 0 Refill(s) [...] 112 bpm HI Respirato (more content not included)...[facility] [address] [place], [place] [id number] Clinical Summary PERSON INFORMATION Name: ALLAN BURR Age: 38 Years Sex: FEMALE : 1985 MRN: Acct#: Visit Reason: SOB, CHEST PAIN Arrival: 02/10/2024 16:16:40 Discharge: 02/10/2024 16:29:00 LOS: 000 00:13 Check In: 02/10/2024 16:16:40 Checkout: 02/10/2024 16:29:00 Address: [address] [place], [place] [address] PCP: MARIYA HUERTA PROVIDER INFORMATION Provider Role Assigned Unassigned Palak Lerma ED PA 02/10/2024 16:19:36 VITALS INFORMATION Vital [...] unable to complete sentence. States no h/o VA, CAD, PE. To ED via DISCHARGE INFORMATION: Discharge Disposition: Home Discharge Location: [facility] PATIENT EDUCATION INFORMATION Instructions: Follow-Up: DIAGNOSIS: Patient Understands: Comment:[facility] - Physicianon 36-17-2123NA Note - PhysicianPatient: ALLAN BURR Age: 38 years Sex: FEMALE [...] being treated for bronchitis was seen at [facility] and placed on antibiotics and steroids. States [...] Vitamin D3: PO, Daily Zinc: PO, Daily amoxicillin-clavulanate 875 mg-125 mg oral tablet: 0 Refill(s) [...] Measurements 02/10/2024 18:27 EDT (more content not included)...[facility]ED [facility] - PhysicianAllan states she was told on Wednesday she probably has bronchitis. She comes the urgent care stating it feels like an elephant is sitting on the chest. My chest extremely heavy. I feel like I am breathing through a straw. Hoarseness, She can hardly speak. She is very short of breath, labored, unable t o complete sentence. States no h/o VA, CAD, PE. To ED via [Electronically Signed on: 02/10/2024 16:21 EDT] Etienne PAC, Palak N [Verified on: 02/10/2024 16:21 EDT] Lowell SUNJga [facility]ED Note-Nursingon 38-14-8201PA Note-NursingPt wheeled back to ED RM 6 with at bedside pt C/O cough, chest pain, and chills off and on.Pt symptoms started last week, pt went to PCP and was diagnosed with bronchitises, she was on steroid and antibiotic but symptoms have not improved. pt has a horsy voice, non productive dry cough. Pt has wheezing bilateral lung sounds. Pt has a three year old son at home who has pneumonia. Pt is A/Ox4 call light within reach [facility] CenterED Patient Education Noteon [id number] Patient Education Note Education [facility] Patient Summaryon [id number] Patient Summary[facility] [address] [place] [address] PATIENT DISCHARGE INSTRUCTIONS Patient Information Name: ALLAN BURR Age: 38 Years Date of : 1985 Reason For Visit: Medical problem reevaluation; Cough; HYPOKALEMIA, PNEUMONIA, PNEUMONIA INVOLVING RT LUNG, FAILURE OF OUTPATIENT TREATMENT Arrival Time: 02/10/2024 16:24:54 Primary Care Physician: MARIYA HUERTA Attending Physician: Nav Calvillo MD Comment: Visit Diagnosis: Diagnoses This Visit Cough ([id number]) Failure of outpatient treatment (Z78.9) Hypokalemia (E87.6) Medical problem reevaluation ([id number]) Pneumonia (J18.9) Pneumonia involving right lung (J18.9) The Pharmacy at [facility] is open Wednesday through Wednesday from 9A to 6P and Wednesday and Wednesday from 9A to 5P Prescription Information: If you have been given a prescription for narcotics, seek immediate medical attention if you have any difficulty breathing or any sudden status changes such as confusion andsleepiness. If you or anyone you know is experiencing suicidal thoughts, mental health, alcohol and/or drug addiction problems; contact the [facility] 02/11 Crisis Hotline -Text 7EDFS zz [phone]. If you received any narcotics, sedation, or [...] and treatment you received today in the [facility] Emergency Department were for an urgent problem and are not intended as complete care. It is important for you to follow up with a doctor, nurse practitioner, or physician?s technical staff assistant for ongoing care. If your symptoms become worse or you donot improve as expected and you are unable [...] so we can reach you if necessary. [facility] Emergency Department has provided you with a complete list of medications post discharge. Please inform your sheet metal production worker/provider of your visit and for further instruction on these medications. Any specific questions regarding your chronic medications and dosages should be discussed with your primary care physician(s) and/or pharmacist. Medications to Continue That Have Not Changed Other Medications amoxicillin-clavulanate (amoxicillin-clavulanate 875 mg-125 mg oral tablet) ascorbic acid (Vitamin C) Oral (given by mouth) every day. benzonatate (benzonatate 100 mg oral capsule) cholecalciferol (Vitamin D3) Oral (given by mouth) every day. ethinyl estradiol-levonorgestrel (Ashlyna oral tablet) 1 tab(s) Oral (given [...] Problems found Patient Educat (more content not included)...[facility] [address] [place], [place] [id number] PATIENT DISCHARGE INSTRUCTIONS Patient Information Name: ALLAN BURR Age: 38 Years Date of : 1985 Reason For Visit: SOB, CHEST PAIN Arrival Time: 02/10/2024 16:16:40 Primary Care Physician: MARIYA HUERTA Attending Physician: Palak Lerma Comment: Patient Education Medication Information: The exam and treatment you received today in the [facility] Emergency Department were for an urgent problem and are not intended as complete care. It is important for you to follow up with a doctor, nurse practitioner, or physician?s technical staff assistant for ongoing care. If your symptoms become worse or you donot improve as expected and you are unable [...] so we can reach you if necessary. [facility] Emergency Department has provided you with a complete list of medications post discharge. Please inform your sheet metal production worker/provider of your visit and for further instruction on these medications. Any specific questions regarding your chronic medications and dosages should be discussed with your primary care physician(s) and/or pharmacist. Medications to Continue That Have Not Changed Other Medications ascorbic acid (Vitamin C) Oral (given by mouth) every day. cholecalciferol (Vitamin D3) Oral (given by mouth) every day. ethinyl estradiol-levonorgestrel (Ashlyna oral tablet) 1 tab(s) Oral (given [...] Centers for Disease Control and Prevention December 2013[facility] Magnesiumon 83-12-0548Nxfxxotqg [Mass/Vol]1.60 mg/dLLow1.80-2.50[facility] - YoungstownComment on above:Performed By: #### [id number], [id number], [id number], [id number], [id number], 1852132, [id number], [id number] ####[facility] (DEFAULT)[address] [place], [place] [address]Cfbzebelvp pneumoniae IgMon 81-75-3103Jsdalwgd ControlPassSt. Vincent HospitalComment on above:Performed By: #### [id number], [id number], 8143012, [id number], [id number], [id number], [id number], [id number] ####[facility] (DEFAULT)[address] [place] [address]Kshhqqevek IgMNegativeNormalNegativeSelect Medical Specialty Hospital - YoungstownComment on above:Performed By: #### [id number], 1801900, 6762396, 92639016, [id number], 8435867, [id number], [id number] ####[facility] (DEFAULT)[address] [place] [address]MEoz 55-56-6977HVV Coag (PPP) [Relative time]0.99 {INR}Normal0.91-1.11[facility] HospitalComment on above:Performed By: #### [id number], 7067985, 2864982, 17203280, [id number], 3142830, [id number], [id number] ####[facility] (DEFAULT)[address] [place] [address]SP32.3 second(s)Normal9.7-11.8[facility] Hospital - YoungstownComment on above:Performed By: #### [id number], 9601936, 6391165, 15313202, [id number], 8644578, [id number], [id number] ####[facility] (DEFAULT)[address] [place] [address]Mrpqmk Cultureon 44-22-4814Cjraqcmq identified Respiratory culture Nom (Sput)Predominant growth of Streptococcus viridans, Niessiera species, Diptheroids. Normal respiratory rachelle No pathogens isolated <25/lpf epithelial cells 3+ White Blood Cells 3+ Gram Positive Rods 2+ Gram Positive Cocci 1+ Gram Negative RodsNoSycamore Medical CenterComment on above:Performed By: #### [id number], [id number], [id number] #### [facility] (DEFAULT) [address] [place] [address]EtU HSon 04-17-0166Xlflppgu I High Sensitivity4.0 pg/mL Normal<=15.0[facility] HospitalComment on above:Order Comment: To be done 1 hour after first Troponin HSPerformed By: #### [id number], [id number], [id number] #### [facility] (DEFAULT) [address] [place], [place] [address]Nntdzrcw I High Sensitivity4.4 pg/mLNormal<=15.0[facility] Hospital - YoungstownComment on above:Performed By: #### [id number], 7826408, 1944543, 18031987, [id number], 9666710, [id number], [id number] ####[facility] (DEFAULT)[address] [place], [place] [address]Hcyskrpl Noteon 02-10-2024 Transfer Dzol4924 - called [facility]; spoke with RACHEL Gomez. She's paging the hospitalist for transfer. She said that main campus is full but is calling [facility] 2034 - Dr. Mendez, [facility], called back and spoke with Dr Godwin....He's accepted this patient as a direct admit transfer 2350 - called Transfer - spoke with Beba and told her that we are cancelling the transfer. After further testing, [facility] agreed to admit this patient. [Electronically Signed on: 02/10/2024 23:58 EDT] Ashley Marin [Verified on: 02/10/2024 23:58 EDT] Emily MarinMetroHealth Main Campus Medical CenterXR Chest 2 Viewson [id number] Chest 2 Views EXAM: XR Chest 2 Views HISTORY: Chest Pain COMPARISON: No prior studies available for comparison. TECHNIQUE: 2 view chest radiograph, 3 images total. FINDINGS: Support Devices/other: Small metallic clips overlie the upper abdomen.. Parenchyma: Wedge-shaped/triangular consolidative opacity involving the right middle lobe. Additional hazy/patchy opacities involving the posterior aspect of the right lung base. Elevation of the right hemidiaphragm. Pleura: No pneumothorax. No pleural fluid. Heart/Mediastinum: Right heart border is obscured, otherwise cardiac silhouette is stable. Mild rightward mediastinal shift. Mediastinal contours are otherwise within normal limits. Bones/Soft Tissues: Intact. IMPRESSION: Wedge-shaped/triangular consolidative opacity involving the right middle lobe. There is associated rightward mediastinal shift and elevation of the right hemidiaphragm. Findings overall favor complete collapse/atelectasis of the right middle lobe with associated volume loss. Findings could be medical collections representative of post obstructive atelectasis secondary to [...] Refugio Fulton MD 02/10/24 6:58 pm Technologist: [facility] Centeroratory - Microbiology and Antimicrobial susceptibilityon 54-37-5953AWHP-CoV-2 (COVID-19) RNA ALBERTO+probe Ql (Unsp spec)NegativeSelect Specialty HospitalNo Panel Informationon 59-40-0870HSI ANegative NOMS HealthcareFLU BNegativeLevine Children's HospitalCBC panel Auto (Bld)on 22-83-3211Gzffqrvzgcv distribution width (RBC) [Ratio]12.6 %Gzlrum52.5-15.0 [facility] on above:Order Comment: Specimen Type: BLOOD SPECIMEN Ordering Facility: [facility] Address: [address] [place], [place] [address]Jcxcvsxia By: #### 92859-4 #### [facility] CLIA [id number] [address] [place] [address]Lwyckiidxp (Bld) [Volume fraction]38.0 %Sbtlnr67.0-46.0 [facility] on above:Order Comment: Specimen Type: BLOOD SPECIMEN Ordering Facility: [facility] Address: [address] [place], [place] [address]Performed By: #### 80766-7 #### [facility] CLIA [id number] [address] [place] [address]Batucxpxfz (Bld) [Mass/Vol]13.5 g/gYGbnjyr65.5-15.5[facility] on above:Order Comment: Specimen Type: BLOOD SPECIMEN Ordering Facility: [facility] Address: [address] [place], [place] [address]Performed By: #### 39356-6 #### [facility] CLIA [id number] [address] [place] [address] 89978VYW (RBC) [Entitic mass]31.5 cdOirylh41.0-34.0[facility] on above:Order Comment: Specimen Type: BLOOD SPECIMEN Ordering Facility: [facility] Address: [address] [place], [place] [address]Performed By: #### 87890-7 #### [facility] CLIA [id number] [address] [place] [address] 764[address]SSQZ (RBC) [Mass/Vol]35.5 g/xLXetglm97.5-36.0[facility] on above:Order Comment: Specimen Type: BLOOD SPECIMEN Ordering Facility: [facility] Address: [address] [place], [place] [address]Performed By: #### 78941-3 #### [facility] CLIA [id number] [address] [place] [address] 87335ZHT (RBC) [Entitic vol]88.6 zKUtpdyw72.0-100.0[facility] on above:Order Comment: Specimen Type: BLOOD SPECIMEN Ordering Facility: [facility] Address: [address] [place], [place] [address]Performed By: #### 82437-4 #### [facility] CLIA [id number] [address] [place] [address] 06[address]Teieryehx RBC (Bld) [#/Vol]10*3/uLNormal<0.01[facility] on above:Order Comment: Specimen Type: BLOOD SPECIMEN Ordering Facility: [facility] Address: [address] [place], [place] [address]Performed By: #### 58765-8 #### [facility] CLIA [id number] [address] [place], [place] [address]Iisxwsgb mean volume (Bld) [Entitic vol]8.8 fLLow9.0-12.7 [facility] on above:Order Comment: Specimen Type: BLOOD SPECIMEN Ordering Facility: [facility] Address: [address] [place], [place] [address]Performed By: #### 77934-7 #### [facility] CLIA [id number] [address] [place] [address] 35046Bcoznmkqb (Bld) [#/Vol]230 10*3/qTZjrddd745-013KffsygmzfAvita Health System [facility] on above:Order Comment: Specimen Type: BLOOD SPECIMEN Ordering Facility: [facility] Address: [address] [place], [place] [address]Performed By: #### 59341-9 #### [facility] CLIA [id number] [address] [place] [address] 838[address]JCF (Bld) [#/Vol]4.29 10*6/uLNormal3.90-5.20[facility] on above:Order Comment: Specimen Type: BLOOD SPECIMEN Ordering Facility: [facility] Address: [address] [place], [place] [address]Performed By: #### 59764-4 #### [facility] CLIA [id number] [address] [place] [address] 65[address]JTM (Bld) [#/Vol]5.82 10*3/uLNormal3.70-11.00[facility] on above:Order Comment: Specimen Type: BLOOD SPECIMEN Ordering Facility: [facility] Address: [address] [place], [place] [address], [place] [address]Luvoeixzq By: #### 22628-8 #### [facility] CLIA [id number] [address] [place] [address] 57998KRE CBC PNL BLD AUTOon 95-67-9513DKH NRBC # BLD AUTO<0.01NINF NOM HealthcareCCF PLATELET # BLD [id number] Health Lakewood Medical CenterCCF PMV BLD AUTO8.8 fL Low9.0 - 12.7 fLNONE HealthcareCCF WBC # BLD AUTO5.82[facility] HealthcareErythrocyte distribution width (RBC) [Ratio]12.6 %11.5 - 15.0 %[facility] HealthcareHematocrit (Bld) [Volume fraction]38 %36.0 - 46.0 %[facility] Specialty HospitalHemoglobin (Bld) [Mass/Vol]13.5 g/dL11.5 - 15.5 g/dLSelect Specialty HospitalInterpretation and review of laboratory resultsAbnormalSSM Saint Mary's Health CenterH (RBC) [Entitic mass]31.5 pg26.0 - 34.0 pgSSM Saint Mary's Health CenterHC (RBC) [Mass/Vol]35.5 g/dL30.5 - 36.0 g/dLSSM Saint Mary's Health CenterV (RBC) [Entitic vol]88.6 fL80.0 - 100.0 fLSelect Specialty HospitalRBC (Bld) [#/Vol]4.29 10*6/uL3.90 - 5.20 m/uLSelect Specialty HospitalSpecimen Type: BLOOD SPECIMEN Ordering Facility: [facility] Address: [address] [place] [id number] Original Ordering Provider: TITUS GOMEZ HealthcareCNPNon 70-60-8888IVZJMkmuijlxg (HEMTSA) ALLAN BURR ([id number]) 1985 F Date Time Provider Department 02/02/24 [...] [E83.110] Order(s):COMPLETE BLOOD COUNT [SQCBC] Order #: [id number] STANDING Prescriptions as of 02/02/2024 - Phentermine HCl 37.5 mg tablet Take 1 tablet by mouth once daily for 90 days. - omeprazole (PRILOSEC) 20 mg capsule TAKE 1 CAPSULE ONCE DAILY - ondansetron (ZOFRAN) 4 mg tablet take 1 tablet by mouth every 6 hours as needed - MULTIVITAMIN ORAL Take by mouth. - Lactobacillus acidophilus (PROBIOTIC ORAL) Take by mouth. - multivit-min/iron/folic/klt491 (HAIR, SKIN AND NAILS ADVANCED ORAL) Take by mouth. - calcium polycarbophil (FIBERCON ORAL) Take by mouth. - tirzepatide, weight loss (ZEPBOUND) 7.5 mg/0.5 mL pen injector Inject 7.5 mg subcutaneously one time a week. - L-NORGEST/E.ESTRADIOL-E.ESTRAD (AMETHIA ORAL) Take 1 tablet by [...] 01/06/2024 Encounter Status:Closed by DEB MAZA on 02/02/24[facility] CBC W AUTO DIFF BLDon 81-42-2874Apckyfzmt/100 WBC (Bld)0.5 %NOMS [facility] SystemF BASOPHILS # BLD AUTO0.03[facility]IS[facility] DIFFERENTIAL METHOD BLDAutoNOMS [facility] EOSINOPHIL # BLD AUTO0.14[facility] LYMPHOCYTES # BLD AUTO2.74[facility] MONOCYTES # BLD AUTO0.37[facility] NEUTROPHILS # BLD AUTO3.01[facility] NRBC # BLD AUTO<0.01 NINFCoxHealth NRBC/100 WBC BLD-RTO0.0/100 WBCCoxHealth PLATELET # BLD [id number] HealthcareCCF PMV BLD AUTO9.0 fL9.0 - 12.7 fLSelect Specialty HospitalCCF WBC # BLD AUTO6.30NOUniversity Health Lakewood Medical CenterEosinophils/100 WBC (Bld)2.2 % [facility] HospitalErythrocyte distribution width (RBC) [Ratio]11.8 %11.5 - 15.0 % [facility] HospitalHematocrit (Bld) [Volume fraction]39.0 %36.0 - 46.0 %[facility] HospitalHemoglobin (Bld) [Mass/Vol]14.1 g/dL11.5 - 15.5 g/dLPhelps Health GRANULOCYTES # BLD AUTO<0.03NINFPhelps Health GRANULOCYTES/LEUK NFR BLD AUTO0.2 %[facility] HospitalInterpretation and review of laboratory resultsAbnormal [facility] HospitalLymphocytes/100 WBC (Bld)43.5 %SSM [facility]'s Health CenterH (RBC) [Entitic mass]31.3 pg26.0 - 34.0 pgSSM Saint Mary's Health CenterHC (RBC) [Mass/Vol]36.2 g/lHMoee28.5 - 36.0 g/dLSSM Saint Mary's Health CenterV (RBC) [Entitic vol]86.5 fL80.0 - 100.0 fLSelect Specialty HospitalMonocytes/100 WBC (Bld)5.9 %[facility] HospitalNeutrophils/100 WBC (Bld) 47.7 %[facility] HospitalRBC (Bld) [#/Vol]4.51 10*6/uL3.90 - 5.20 m/uLSelect Specialty HospitalSpecimen Type: BLOOD SPECIMEN Ordering Facility: [facility] Address: [address] [place] [address] Original Ordering Provider: TITUS SALAZARINISMALA [facility] CBC W AUTO DIFF BLDon [id number]/100 WBC (Bld)0.6 %[facility] BASOPHILS # BLD AUTO0.03[facility]IS[facility] DIFFERENTIAL METHOD BLDAutoNOMKindred Hospital EOSINOPHIL # BLD AUTO0.10[facility]IS[facility] LYMPHOCYTES # BLD AUTO2.13[facility] MONOCYTES # BLD AUTO0.28[facility] NEUTROPHILS # BLD AUTO2.65[facility] NRBC # BLD AUTO<0.01NINFCoxHealth NRBC/100 WBC BLD-RTO0.0/100 WBCCoxHealth PLATELET # BLD [id number] PMV BLD AUTO9.0 fL9.0 - 12.7 fLCoxHealth WBC # BLD AUTO5.20[facility] HospitalEosinophils/100 WBC (Bld)1.9 %[facility] Erythrocyte distribution width (RBC) [Ratio]11.9 %11.5 - 15.0 %[facility] Hematocrit (Bld) [Volume fraction]40.6 %36.0 - 46.0 %[facility] HospitalHemoglobin (Bld) [Mass/Vol]14.5 g/dL11.5 - 15.5 g/dLPhelps Health GRANULOCYTES # BLD AUTO<0.03[facility]IS[facility] GRANULOCYTES/LEUK NFR BLD AUTO0.2 %[facility] HospitalLymphocytes/100 WBC (Bld)41.0 %[facility] CenterH (RBC) [Entitic mass] 31.0 pg26.0 - 34.0 pgSSM Saint Mary's Health CenterHC (RBC) [Mass/Vol]35.7 g/dL30.5 - 36.0 g/dLSSM Saint Mary's Health CenterV (RBC) [Entitic vol]86.9 fL80.0 - 100.0 fLSelect Specialty Hospital Monocytes/100 WBC (Bld)5.4 %[facility] HospitalNeutrophils/100 WBC (Bld)50.9 %[facility] HospitalRBC (Bld) [#/Vol]4.67 10*6/uL3.90 - 5.20 m/uLSelect Specialty HospitalSpecimen Type: BLOOD SPECIMEN Ordering Facility: [facility] Address: [address] [place] [address] Original Ordering Provider: TITUS GOMEZ [facility] CBC W AUTO DIFF BLDon [id number]/100 WBC (Bld)0.6 %[facility] BASOPHILS # BLD AUTO0.04[facility] DIFFERENTIAL METHOD BLDAutoNOMKindred Hospital EOSINOPHIL # BLD AUTO0.20[facility] LYMPHOCYTES # BLD AUTO2.62[facility] MONOCYTES # BLD AUTO0.40NINFCoxHealth NEUTROPHILS # BLD AUTO3.62[facility] NRBC # BLD AUTO<0.01NINFCoxHealth NRBC/100 WBC BLD-RTO0.0/100 WBCCoxHealth PLATELET # BLD [id number] PMV BLD AUTO9.4 fL9.0 - 12.7 fLCoxHealth WBC # BLD AUTO6.90[facility] HospitalEosinophils/100 WBC (Bld)2.9 %[facility] Erythrocyte distribution width (RBC) [Ratio]12.4 %11.5 - 15.0 %[facility] Hematocrit (Bld) [Volume fraction]42.6 %36.0 - 46.0 %[facility] HospitalHemoglobin (Bld) [Mass/Vol]14.3 g/dL11.5 - 15.5 g/dLPhelps Health GRANULOCYTES # BLD AUTO<0.03[facility]IS[facility] GRANULOCYTES/LEUK NFR BLD AUTO0.3 %[facility] HospitalLymphocytes/100 WBC (Bld)38.0 %[facility] CenterH (RBC) [Entitic mass] 30.6 pg26.0 - 34.0 pgSSM Saint Mary's Health CenterHC (RBC) [Mass/Vol]33.6 g/dL30.5 - 36.0 g/dLSSM Saint Mary's Health CenterV (RBC) [Entitic vol]91.0 fL80.0 - 100.0 fLSelect Specialty Hospital Monocytes/100 WBC (Bld)5.8 %[facility] HospitalNeutrophils/100 WBC (Bld)52.4 %[facility] HospitalRBC (Bld) [#/Vol]4.68 10*6/uL3.90 - 5.20 m/uLSelect Specialty HospitalSpecimen Type: BLOOD SPECIMEN Ordering Facility: [facility] Address: [address] [place] [address] Original Ordering Provider: NICOLE CROWELL [facility] ACOG PANEL 2: 30 to 65on 06-06-2021..NormalThe [facility]oria Community HospitalComment on above:Result Comment: Performed at: WBPerformed By: #### CBC #### [facility] [address] [address] Monica GuerreroenAge Gdln ACOG Gkzhdrs07-01YggvmhLgqChillicothe HospitalCommunson healthcare [facility] on above:Performed By: #### CBC #### [facility] [address] [place] [address] Monica KarenDIAGNOSIS:CommentBluffton Hospital on above:Result Comment: NEGATIVE FOR INTRAEPITHELIAL LESION OR MALIGNANCY. Performed at: WBPerformed By: #### CBC #### [facility] [address] [place] [address] Monica KarenHPV AptimaNegativeNormalNegativeThe [place] on above:Result Comment: This nucleic acid amplification test detects fourteen high-risk HPV types (16,18,31,33,35,39,45,51,52,56,58,59,66,68) without differentiation. Performed at: =GPerformed By: #### CBC #### [facility] [address] [place] [address] Monica KarenMethodology:CommentBluffton Hospital on above: Result Comment: This liquid based ThinPrep(R) pap test was screened with the use of an image guided system. Performed at: WBPerformed By: #### CBC #### [facility] [address] [place] [address] Monica KarenNote:CommentBluffton Hospital on above:Result Comment: The Pap smear is a screening test designed to aid in the detection of premalignant and malignant conditions of the uterine cervix. It is not a diagnostic procedure and should not be used as the sole means of detecting cervical cancer. Both false-positive and false-negative reports do occur. . Performed at: WBPerformed By: #### CBC #### [facility] [address] [place] [address] Monica KarenPerformed by:CommentBluffton Hospital on above: Result Comment: Mingo Franklin, Band And Cuff Cutter (ASCP) Performed at: WBPerformed By: #### CBC #### [facility] [address] [address] Monica GuerreroenSpecimen adequacy:CommentNoChillicothe HospitalComment on above:Result Comment: Satisfactory for evaluation. Endocervical and/or squamous metaplastic cells (endocervical component) are present. Performed at: WBPerformed By: #### CBC #### [facility] [address] [address] Monica KarenVAGINITIS/VAGINOSIS DNA PROBEon [id number] speciesNegative NormalNegativeOhiohealth Shelby HospitalComment on above:Performed By: #### VAGINT #### [facility] [address] [place] [address] Dr. Tianna Green vaginalisNegativeColchesterNegHocking Valley Community [facility] Comment on above:Performed By: #### VAGINT #### [facility] [address] [place] [address] Dr. Tianna Carloshomjolly vaginalisNegativeColchesterNegHocking Valley Community Hospital Comment on above:Performed By: #### VAGINT #### [facility] [address] [place] [address] Dr. Tianna MercadoXR Chest 2 Views*on [id number] Chest 2 Views*HISTORY: SOB, cough FINDINGS: No acute cardiac or pulmonary disease is identified. No worrisome mass lesions or infiltrates are seen. No pulmonary edema or pneumothorax is present. Cardiac silhouette size is normal. Skeletal structures are unremarkable. Mild thoracolumbar scoliosis. IMPRESSION: No acute disease. Report reported and signed by Apollo Cesar on 05/19/2021 1146NormalNorthern Georgia Medical SpecialistQ - CULTURE,URINE,ROUTINEon [id number], URINE, ROUTINESEE NOTEAbnormalNorthern Georgia Medical SpecialistComment on above:Order Comment: [facility] Testing performed at: QPT, [facility], [address] [place] [address], [address] [place] [address], [place], [address], Snailer: Arturo Escamilla MD [facility] Collection Date/Time: [facility] Results Received Date/Time: [facility] Reported Date/Time: [id number] Comment: CULTURE, URINE, ROUTINE Micro Number: [id number] Test Status: Final Specimen Source: Not given [...] cefaclor, cefdinir, cefpodoxime, cefprozil, cefuroxime, cephalexin and loracarbef.Performed By: #### [id number] #### [facility] Default [address] [place], [place] [address]PYB AUTO DIFFon [id number] #0.0 103/ulNormal0.0-0.1Ohiohealth Shelby HospitalComment on above:Performed By: #### CBC #### [facility] [address] [place] [address] Monica KarenBasophils/100 WBC (Bld)0.3 %Normal0.2-2.0The [facility] Comment on above:Performed By: #### CBC #### [facility] [address] [place] [address] Monica KarenEO #0.1 103/ulNormal0.0-0.7The [facility] HospitalComment on above: Performed By: #### CBC #### [facility] [address] [place] [address] Monica KarenEosinophils/100 WBC (Bld)1.0 %Normal0.9-7.0The [facility] Comment on above:Performed By: #### CBC #### [facility] [address] [place] [address] Monica KarenErythrocyte distribution width (RBC) [Ratio]13.4 %Lzkgjv90.0-15.0Ohiohealth Shelby HospitalComment on above:Performed By: #### CBC #### [facility] [address] [place] [address] Monica KarenHematocrit (Bld) [Volume fraction]31.4 %Critically low36.0-48.0The [facility] HospitalComment on above:Performed By: #### CBC #### [facility] [address] [place] [address] Monica KarenHemoglobin (Bld) [Mass/Vol]10.8 g/dLCritically low12.0-16.0Ohiohealth Shelby HospitalComment on above:Performed By: #### CBC #### [facility] [address] [place] [address] Monica KarenIG #0.05 10e3/ulCritically high0.00-0.03The [facility] HospitalComment on above:Performed By: #### CBC #### [facility] [address] [place] [address] Monica KarenIG %0.4 %Normal0.0-0.5The [facility] HospitalComment on above: Performed By: #### CBC #### [facility] [address] [place] [address] Monica EchevarriaLYMPH #2.8 103/ulNormal1.2-3.8The [facility] HospitalComment on above: Performed By: #### CBC #### [facility] [address] [place] [address] Monica GuerreroenLymphocytes/100 WBC (Bld)24.4 %Aeniqu73.5-60.0[facility] Comment on above:Performed By: #### CBC #### [facility] [address] [place] [address] Monica EchevarriaMANUAL DIFF REQNONormalThe [facility] HospitalComment on above: Performed By: #### CBC #### [facility] [address] [place] [address] Monica KarenLONG [facility] (RBC) [Entitic mass]30.3 pwEkpnzc75.7-34.0[facility] Comment on above:Performed By: #### CBC #### [facility] [address] [place] [address] Monica KarenNEWYORK-[facility] (RBC) [Mass/Vol]34.4 g/rFRoqtnd74.9-35.2[facility] Comment on above:Performed By: #### CBC #### [facility] [address] [place] [address] Monica [facility]erreroHillsdale [facility] (RBC) [Entitic vol]88.2 hEGejcid76.0-99.0[facility] Comment on above:Performed By: #### CBC #### [facility] [address] [place] [address] Monica EchevarriaMONO #0.8 103/ulNormal0.3-0.8The [facility] HospitalComment on above: Performed By: #### CBC #### [facility] [address] [place] [address] Monica KarenMonocytes/100 WBC (Bld)6.8 %Normal1.7-12.0The [facility] Comment on above:Performed By: #### CBC #### [facility] [address] [place] [address] Monica GarrettUT #7.7 103/ulCritically high1.4-6.5The [facility] HospitalComment on above:Performed By: #### CBC #### [facility] [address] [place] [address] Monica Garrettutrophils/100 WBC (Bld)67.1 %Klklxu45.0-75.0The [facility] Comment on above:Performed By: #### CBC #### [facility] [address] [place] [address] Monica EchevarriaPlatelet mean volume (Bld) [Entitic vol]10.3 fLNormal9.5-13.5The [facility] HospitalComment on above:Performed By: #### CBC #### [facility] [address] [place] [address] Monica GuerreroYuhckZHI616 103/eeUooznu655-892Jbj [facility] HospitalComment on above: Performed By: #### CBC #### [facility] [address] [place] [address] Monica GuerreroenRBC3.56 106/ulCritically low4.20-5.40The [facility] HospitalComment on above:Performed By: #### CBC #### [facility] [address] [place] [address] Monica GuerreroenWBC11.5 103/ulCritically high4.0-11.0The [facility] HospitalComment on above:Performed By: #### CBC #### [facility] [address] [place] [address] Monica KarenASYMPTOMATIC COVID-19 ANTIGENon [id number] StatementSEE BELOW NormalThe [facility] HospitalComment on above:Result Comment: This test has not been FDA [...] declaration is terminated or authorization is revoked sooner.Performed By: #### CBC #### [facility] [address] [place] [address] Moniac JenkinsFgaceMOCL-BlX-1 (COVID-19) RNA ALBERTO+probe Ql (Unsp spec)NegativeNormal NEGATIVEThe [facility] HospitalComment on above:Result Comment: Negative results are presumptive. They do not preclude infection and should not be used as the sole basis for treatment decisions. Additional confirmatory testing by a molecular method should be considered.Performed By: #### CBC #### [facility] [address] [place] [address] Monica KarenCBC AUTO DIFFon [id number] #0.0 103/ulNormal0.0-0.1Ohiohealth Shelby HospitalComment on above:Performed By: #### CBC #### [facility] [address] [place] [address] Monica KarenBasophils/100 WBC (Bld)0.2 %Normal0.2-2.0The [facility] Comment on above:Performed By: #### CBC #### [facility] [address] [place] [address] Monica KarenEO #0.1 103/ulNormal0.0-0.7The [facility] HospitalComment on above: Performed By: #### CBC #### [facility] [address] [place] [address] Monica KarenEosinophils/100 WBC (Bld)0.6 %Critically low0.9-7.0The [facility] HospitalComment on above:Performed By: #### CBC #### [facility] [address] [place] [address] Monica KarenErythrocyte distribution width (RBC) [Ratio]13.6 %Srreot59.0-15.0The [facility] HospitalComment on above:Performed By: #### CBC #### [facility] [address] [place] [address] Monica KarenHematocrit (Bld) [Volume fraction]39.3 %Kdrzhr16.0-48.0The [facility] HospitalComment on above:Performed By: #### CBC #### [facility] [address] [place] [address] Monica KarenHemoglobin (Bld) [Mass/Vol]13.6 g/wWTgjpgn39.0-16.0The [facility] HospitalComment on above:Performed By: #### CBC #### [facility] [address] [place] [address] Monica KarenIG #0.05 10e3/ulCritically high0.00-0.03The [facility] HospitalComment on above:Performed By: #### CBC #### [facility] [address] [place] [address] Monica KarenIG %0.5 %Normal0.0-0.5The [facility] HospitalComment on above: Performed By: #### CBC #### [facility] [address] [place] [address] Monica KarenLYMPH #2.3 103/ulNormal1.2-3.8The [facility] HospitalComment on above: Performed By: #### CBC #### [facility] [address] [place] [address] Monica KarenLymphocytes/100 WBC (Bld)24.6 %Okrngc20.5-60.0The [facility] Comment on above:Performed By: #### CBC #### [facility] [address] [place] [address] Monica KarenMANUAL DIFF REQNONormalThe [facility] HospitalComment on above: Performed By: #### CBC #### [facility] [address] [place] [address] Monica KarenMCH (RBC) [Entitic mass]30.4 kgMtugtx88.7-34.0[facility] Comment on above:Performed By: #### CBC #### [facility] [address] [place] [address] Monica EchevarriaMCHC (RBC) [Mass/Vol]34.6 g/aBGvpgiq82.9-35.2[facility] Comment on above:Performed By: #### CBC #### [facility] [address] [place] [address] Monica EchevarriaMCV (RBC) [Entitic vol]87.9 yKQjzvuz50.0-99.0[facility] Comment on above:Performed By: #### CBC #### [facility] [address] [place] [address] Monica EchevarriaMONO #0.7 103/ulNormal0.3-0.8The [facility] HospitalComment on above: Performed By: #### CBC #### [facility] [address] [place] [address] Monica KarenMonocytes/100 WBC (Bld)7.8 %Normal1.7-12.0The [facility] Comment on above:Performed By: #### CBC #### [facility] [address] [place] [address] Monica GuerreroenNEUT #6.3 103/ulNormal1.4-6.5The [facility] HospitalComment on above: Performed By: #### CBC #### [facility] [address] [place] [address] Monica KarenNeutrophils/100 WBC (Bld)66.3 %Twmnad93.0-75.0[facility] Comment on above:Performed By: #### CBC #### [facility] [address] [place] [address] Monica KarenPlatelet mean volume (Bld) [Entitic vol]10.2 fLNormal9.5-13.5The [facility] HospitalComment on above:Performed By: #### CBC #### [facility] [address] [place] [address] Monica UyvzhXJU341 103/wfNmyuee465-366Hjw Fine HospitalComment on above: Performed By: #### CBC #### [facility] [address] [place] [address] Monica KarenRBC4.47 106/ulNormal4.20-5.40The Fine HospitalComment on above: Performed By: #### CBC #### [facility] [address] [place] [address] Monica KarenWBC9.5 103/ulNormal4.0-11.0The [facility] HospitalComment on above: Performed By: #### CBC #### [facility] [address] [place] [address] Monica KarenDRUG SCREEN RAPID (URINE)on [id number]SDnd Bellevue HospitalComment on above:Performed By: #### DRUGRPD #### [facility] [address] [place] [address] Monica KarenBARNegativeNormalNEGATIVEOhiohealth Shelby HospitalCommunson healthcare [facility] on above: Performed By: #### DRUGRPD #### [facility] [address] [place] [address] Monica KarenBUPNegativeNormalNEGATIVEOhiohealth Shelby HospitalCommunson healthcare [facility] hospital on above: Performed By: #### DRUGRPD #### [facility] [address] [place] [address] Monica KarenBZONegativeNormalNEGATIVEOhiohealth Shelby HospitalComment on above: Performed By: #### DRUGRPD #### [facility] [address] [place] [address] Monica KarenCOCNegativeNormalNEGATIVEOhiohealth Shelby HospitalComment on above: Performed By: #### DRUGRPD #### [facility] [address] [place] [address] Monica KarenCUT-OFFSSEE BELOWMaria Parham Healthe [facility] HospitalComment on above:Result Comment: AMP (Amphetamine): 500ng/mL, BAR (Barbituates): 200 ng/mL, BZO (Benzodiazepines): 150 ng/mL, BUP (Buprenorphine): 10 ng/mL, KHANH (Cocaine): 150 ng/mL, mAMP (Methamphetamine): 500 ng/mL, MTD (Methadone): 200 ng/mL, OPI (Opiates): 100 ng/mL, OXY (Oxycodone): 100 ng/mL, PCP (Phencyclidine): 25 ng/mL, PPX (Propoxyphene): 300 ng/mL, THC (Cannabinoids): 50 ng/mL, TCA (Trycyclic Antidepressants): 300 ng/mLPerformed By: #### DRUGRPD #### [facility] [address] [place] [address] Monica KarenDRUG CUT HEADERDRUG CLASS TEST SYSTEM CUT-OFF CONCENTRATIONS ARE FOLLOWS:NormalOhiohealth Shelby HospitalComment on above:Performed By: #### DRUGRPD #### [facility] [address] [place] [address] Monica KarenmAMPNegativeNormalNEGATIVEOhiohealth Shelby HospitalComment on above: Performed By: #### DRUGRPD #### [facility] [address] [place] [address] Monica KarenMTDNegativeNormalNEGATIVEOhiohealth Shelby HospitalComment on above: Performed By: #### DRUGRPD #### [facility] [address] [place] [address] Monica KarenOPINegativeNormalNEGATIVEOhiohealth Shelby HospitalComment on above: Performed By: #### DRUGRPD #### [facility] [address] [place] [address] Monica KarenOXYNegativeNormalNEGATIVEOhiohealth Shelby HospitalComment on above: Performed By: #### DRUGRPD #### [facility] [address] [place] [address] Monica KarenPCPNegativeNormalNEGATIVEOhiohealth Shelby HospitalComment on above: Performed By: #### DRUGRPD #### [facility] [address] [place] [address] Monica KarenPPXNegativeNormalNEGATIVEOhiohealth Shelby HospitalComment on above: Performed By: #### DRUGRPD #### [facility] [address] [place] [address] Monica KarenTCANegativeNormalNEGATIVEOhiohealth Shelby HospitalCommunson healthcare [facility] on above: Performed By: #### DRUGRPD #### [facility] [address] [place] [address] Monica KarenTHCNegativeNormalNEGATIVEOhiohealth Shelby HospitalComment on above: Performed By: #### DRUGRPD #### [facility] [address] [place] [address] Monica KarenTYPE AND SCREENon 34-44-6070IVOT AND SCREENAntibody Screen NEGATIVE Blood Bank Notes completed by [facility] ABO Rh Typing O Rh Positive Blood Bank Notes completed by [facility] on above:Performed By: #### CBC #### [facility] [address] [place] [address] Monica KarenUS PREG BIOPHY W NON STRESSon [id number] PREG BIOPHY W NON STRESS EXAMINATION: US [...] Electronically authenticated by: NIHARIKA FUENTES Date: 2020-10-11 09:[address] [place], [place] [address]UA (CLEAN/CATCH) VAPOR COATER/MICRO IF IND.on 02-10-0464Pfazfmoyq Ql (U) NegativeNormalNEGHighland District HospitalCommunson healthcare [facility] hospital on above:Performed By: #### MALIA FIERRO #### [facility] [address] [place] [address] Monica KarenClarity (U)CLEARNormalCLEAROhiohealth Shelby HospitalComment on above: Performed By: #### MALIA FIERRO #### [facility] [address] [address] Monica KarenColor (U)LT. YELLOWNormalYELLOWThe Fine HospitalComment on above:Performed By: #### MALIA FIERRO #### [facility] [address] [address] Monica KarenGlucose Ql (U)NegativeNormalNEGATIVEThe Fine HospitalComment on above:Performed By: #### MALIA FIERRO #### [facility] [address] [address] Monica KarenHemoglobin Ql (U)MODERATEAbnormalNEGATIVEThe [facility] Comment on above:Performed By: #### MALIA FIERRO #### [facility] [address] [place] [address] Monica KarenKetones Ql (U)NegativeNormalNEGATIVEThe Fine HospitalComment on above:Performed By: #### MALIA FIERRO #### [facility] [address] [place] [address] Monica KarenLEUKOCYTESNegativeNormalNEGATIVEOhiohealth Shelby HospitalComment on above:Performed By: #### MALIA FIERRO #### [facility] [address] [place] [address] Monica KarenNitrite Ql (U)NegativeNormalNEGATIVEOhiohealth Shelby HospitalComment on above:Performed By: #### MALIA FIERRO #### [facility] [address] [place] [address] Monica KarenpH (U)6.0 [pH]Normal5-9The [facility] HospitalComment on above: Performed By: #### MALIA FIERRO #### [facility] [address] [place] [address] Monica KarenSPEC GRAVITY<=1.308Zrswichs2.005-<=1.025The Fine HospitalComment on above:Performed By: #### MALIA FIERRO #### [facility] [address] [place] [address] Monica KarenUA PROTEINNegativeNormalNEGATIVE/ TRACEThe [facility] HospitalComment on above:Performed By: #### MALIA FIERRO #### [facility] [address] [place] [address] Monica GuerreroenUR MICRO INDINDICATEDNormKettering Health PrebleComment on above: Performed By: #### MALIA FIERRO #### [facility] [address] [place] [address] Monica KarenUrobilinogen Qn (U)0.2 {Joaquin'U}/dLNormal0.2 - 1.0The [facility] HospitalComment on above:Performed By: #### MALIA FIERRO #### [facility] [address] [place] [address] Monica KarenURINE MICROSCOPIC ONLYon [id number]S SEENOhiohealth Shelby HospitalCommunson healthcare [facility] on above:Performed By: #### MALIA FIERRO #### [facility] [address] [place] [address] Monica KarenBacteria identified Cx Nom (U)NOT INDICATEDNoChillicothe HospitalCommunson healthcare [facility] hospital on above:Performed By: #### MALIA FIERRO #### [facility] [address] [place] [address] Monica KarenCASTNONE SEENNormalNONE SEENOhiohealth Shelby HospitalCommunson healthcare [facility] hospital on above: Performed By: #### MLAIA FIERRO #### [facility] [address] [place] [address] Monica KarenCrystals LM Nom (Urine sed)NONE SEENNormalNONE SEENOhiohealth Shelby HospitalCommunson healthcare [facility] hospital on above:Performed By: #### MALIA FIERRO #### [facility] [address] [place] [address] Monica KarenEpithelial cells LM Ql (Urine sed)RARENormalNONE SEEN /RAREOhiohealth Shelby HospitalComment on above:Performed By: #### MALIA FIERRO #### [facility] [address] [address] Monica EchevarriaMUCOUSNONE SEENNormalNONE SEENOhiohealth Shelby HospitalComment on above: Performed By: #### MALIA FIERRO #### [facility] [address] [address] Monica EchevarriaFntibTEM4-2Mzogazfx5-9Gju [facility] HospitalComment on above:Performed By: #### MALIA FIERRO #### [facility] [address] [address] Monica EchevarriaWBCNONE SEENNormalNONE SEENOhiohealth Shelby HospitalComment on above: Performed By: #### MALIA FIERRO #### [facility] [address] [address] Monica [place] PREG BIOPHY W NON STRESSon [id number] PREG BIOPHY W NON STRESS EXAMINATION: US [...] Electronically authenticated by: NIHARIKA FUENTES Date: 2020-10-07 10:52NoChillicothe HospitalUS PREG GROWTHon [id number] PREG GROWTHEXAMINATION: US PREG GROWTH HISTORY: Gestational diabetes mellitus [...] Electronically authenticated by: NIHARIKA FUENTES Date: 2020-10-07 10:55[facility] HospitalGROUP B STREP CULTUREon 10-04-2020. agalactiae Ag Ql (Unsp spec)Culture Observations: Group B Strep called to Kamila Jarrett, Dr Gonzales's office 10/03/20 @[address] [place] [address] Isolate 1 Streptococcus agalactiae Moderate growth of ORGANISM 1 Streptococcus agalactiae ANTIBIOTIC M.I.C RX STATUS Benzylpenicillin <=0.06 S F Ampicillin <=0.25 S F Cefotaxime <=0.12 S F Ceftriaxone <=0.12 S F Levofloxacin 0.5 S F Inducible Clindamycin Resistance Pos POS F Erythromycin 4 R F Clindamycin <=0.25 R F Linezolid <=2 S F Vancomycin 0.5 S F Tetracycline 4 S FNormalOhiohealth Shelby HospitalComment on above:Performed By: #### CBC #### [facility] [address] [place] [address] Monica KarenUA (CLEAN/CATCH) VAPOR COATER/MICRO IF IND.on [id number] Ql (U) NegativeNormalNEGATIVEOhiohealth Shelby HospitalComment on above:Performed By: #### VADIM FINLEY #### [facility] [address] [place] [address] Monica KarenClarity (U)CLEARNormalCLEAROhiohealth Shelby HospitalComment on above: Performed By: #### JOSE FINLEYIND #### [facility] [address] [place] [address] Monica KarenColor (U)LT. YELLOWNormalYELLOWOhiohealth Shelby HospitalComment on above:Performed By: #### VADIM FINLEY #### [facility] [address] [address] Monica KarenGlucose Ql (U)NegativeNormalNEGATIVEThe [facility] HospitalComment on above:Performed By: #### VADIM FINLEY #### [facility] [address] [address] Monica KarenHemoglobin Ql (U)TRACE-INTACTAbnormalNEGATIVEThe [facility] on above:Performed By: #### VADIM FINLEY #### [facility] [address] [address] Monica KarenKetones Ql (U)15 mg/dlAbnormalNEGATIVEThe [facility] HospitalComment on above:Performed By: #### VADIM FINLEY #### [facility] [address] [place] [address] Monica KarenLEUKOCYTESNegativeNormalNEGATIVEThe [facility] HospitalComment on above:Performed By: #### VADIM FINLEY #### [facility] [address] [address] Monica KarenNitrite Ql (U)NegativeNormalNEGATIVEOhiohealth Shelby HospitalComment on above:Performed By: #### VADIM FINLEY #### [facility] [address] [address] Monica KarenpH (U)7.0 [pH]Normal5-9The [facility] HospitalComment on above: Performed By: #### VADIM FINLEY #### [facility] [address] [address] Monica KarenSPEC GRAVITY1.452Mwlqmr5.005-<=1.025The [facility] HospitalComment on above:Performed By: #### VADIM FINLEY #### [facility] [address] [address] Monica KarenUA PROTEINNegativeNormalNEGATIVE/ TRACEThe Fine HospitalComment on above:Performed By: #### VADIM FINLEY #### [facility] [address] [address] Monica KarenUR MICRO INDINDICATEDBarberton Citizens HospitalComment on above: Performed By: #### VADIM FINLEY #### [facility] [address] [place] [address] Monica KarenUrobilinogen Qn (U)0.2 {Joaquin'U}/dLNormal0.2 - 1.0The [facility] HospitalComment on above:Performed By: #### MALIA UACSIND #### [facility] [address] [place] [address] Monica KarenURINE MICROSCOPIC ONLYon [id number] SEENNormalNONE SEEN The [facility] HospitalCommunson healthcare [facility] on above:Performed By: #### VADIM FINLEY #### [facility] [address] [place] [address] Monica KarenBacteria identified Cx Nom (U)NOT INDICATEDNoChillicothe HospitalComment on above:Performed By: #### JOSE FINLEYIND #### [facility] [address] [place] [address] Monica KarenCASTNONE SEENNormalNONE SEENOhiohealth Shelby HospitalCommunson healthcare [facility] hospital on above: Performed By: #### ALOK FINLEYCSIND #### [facility] [address] [place] [address] Monica KarenCrystals LM Nom (Urine sed)NONE SEENNormalNONE SEENOhiohealth Shelby HospitalCommunson healthcare [facility] on above:Performed By: #### MALIA UACSIND #### [facility] [address] [place] [address] Monica KarenEpithelial cells LM Ql (Urine sed)FEWAbnormalNONE SEEN /RAREThe [facility] HospitalCommunson healthcare [facility] on above:Performed By: #### MALIA UACSIND #### [facility] [address] [place] [address] Monica KarenMUCOUSNONE SEENNormalNONE SEENOhiohealth Shelby HospitalCommunson healthcare [facility] on above: Performed By: #### VADIM FINLEY #### [facility] [address] [place], [place] [address] Monica EchevarriaWivnwRNC6-1Amojqkgf2-3Nrx [facility]vue HospitalComment on above:Performed By: #### JOSE FINLEYIND #### [facility] [address] [place], [place] [address] Monica EchevarriaWBCNONE SEENNormalNONE SEENOhiohealth Shelby HospitalComment on above: Performed By: #### JOSE FINLEYIND #### [facility] [address] [place], [place] [address] Monica [place] PREG BIOPHY W NON STRESSon [id number] PREG BIOPHY W NON STRESS EXAMINATION: US [...] Electronically authenticated by: NIHARIKA FUENTES Date: 2020-09-26 10:21[facility] PREG BIOPHY W NON STRESSon [id number] PREG BIOPHY W NON STRESSEXAMINATION: US PREG BIOPHY W NON STRESS HISTORY: [...] Electronically authenticated by: BUTCH HOLLAND Date: 2020-09-20 15:08Barberton Citizens HospitalUS PREG AMNIOTIC FLUID VOLUMEon [id number] PREG AMNIOTIC FLUID VOLUMEEXAMINATION: US PREG AMNIOTIC FLUID VOLUME HISTORY: Oligohydramnios COMPARISON: No relevant comparison available. TECHNIQUE: Limited sonographic examination for amniotic fluid volume FINDINGS: position: Cephalic presentation, longitudinal lie Amniotic fluid volume: 10.5 cm, 5th-95th percentile: 7.2 - 27.8. Largest fluid pocket: 4.9 cm Placenta: Anterior. No retroplacental echogenic abnormality Heart rate: 158 BPM IMPRESSION: Normal amniotic fluid volume Electronically authenticated by: BUTCH HOLLAND Date: 2020-09-17 09:19[facility] PREG BIOPHY W NON STRESSon [id number] PREG BIOPHY W NON STRESSEXAMINATION: US PREG BIOPHY W NON STRESS HISTORY: [...] Electronically authenticated by: NIHARIKA FUENTES Date: 2020-09-13 13:44[facility] PREG GROWTHon [id number] PREG GROWTHEXAMINATION: US PREG GROWTH HISTORY: Gestational diabetes mellitus [...] Electronically authenticated by: BUTCH HOLLAND Date: 2020-09-10 09:41[facility] P[facility] BIOPHY W NON STRESSon [id number] PREG BIOPHY W NON STRESSEXAMINATION: US PREG BIOPHY W NON STRESS HISTORY: [...] Electronically authenticated by: BUTCH HOLLAND Date: 2020-09-06 20:20[facility] KIDNEYSon [id number] KIDNEYSEXAM: US KIDNEYS HISTORY: Pain in thoracic spine [...] Electronically authenticated by: BUTCH JASON Date: 2020-07-01 09:57NormalThe [facility] HospitalBUNon [id number] nitrogen [Mass/Vol]11.0 mg/dLNormal 7.0-17.0The [facility] HospitalComment on above:Performed By: #### BUN CREA #### [facility] [address] [address] Monica KarenCBC AUTO DIFFon [id number] #0.0 103/ulNormal0.0-0.1The [facility] HospitalComment on above:Performed By: #### CBC #### [facility] [address] [address] Monica KarenBasophils/100 WBC (Bld)0.3 %Normal0.2-2.0The [facility] Comment on above:Performed By: #### CBC #### [facility] [address] [address] Monica KarenEO #0.1 103/ulNormal0.0-0.7The [facility] HospitalComment on above: Performed By: #### CBC #### [facility] [address] [address] Monica KarenEosinophils/100 WBC (Bld)0.8 %Critically low0.9-7.0The Berger Hospitalment on above:Performed By: #### CBC #### [facility] [address] [address] Monica KarenErythrocyte distribution width (RBC) [Ratio]13.2 %Tleskt44.0-15.0The [facility] HospitalComment on above:Performed By: #### CBC #### [facility] [address] [address] Monica KarenHematocrit (Bld) [Volume fraction]34.7 %Critically low36.0-48.0The [facility] HospitalComment on above:Performed By: #### CBC #### [facility] [address] [address] Monica KarenHemoglobin (Bld) [Mass/Vol]12.0 g/fDCzdvcd82.0-16.0Ohiohealth Shelby HospitalComment on above:Performed By: #### CBC #### [facility] [address] [address] Monica EvansG #0.06 10e3/ulCritically high0.00-0.03The [facility] HospitalComment on above:Performed By: #### CBC #### [facility] [address] [address] Monica GuerreroenIG %0.6 %Critically high0.0-0.5The [facility] HospitalComment on above:Performed By: #### CBC #### [facility] [address] [place] [address] Monica KarenLYMPH #2.2 103/ulNormal1.2-3.8The [facility] HospitalComment on above: Performed By: #### CBC #### [facility] [address] [place] [address] Monica KarenLymphocytes/100 WBC (Bld)22.8 %Kzedvj24.5-60.0[facility] Comment on above:Performed By: #### CBC #### [facility] [address] [place] [address] Monica EchevarriaMANUAL DIFF REQNONormalThe [facility] HospitalComment on above: Performed By: #### CBC #### [facility] [address] [place] [address] Monica KarenMCH (RBC) [Entitic mass]31.5 ktEsoxbw87.7-34.0[facility] Comment on above:Performed By: #### CBC #### [facility] [address] [place] [address] Monica KarenMCHC (RBC) [Mass/Vol]34.6 g/kTMpbjqy08.9-35.2The [facility] Comment on above:Performed By: #### CBC #### [facility] [address] [place] [address] Monica KarenMCV (RBC) [Entitic vol]91.1 pFTydnnt96.0-99.0[facility] Comment on above:Performed By: #### CBC #### [facility] [address] [address] Monica GuerreroenMONO #0.7 103/ulNormal0.3-0.8The [facility] HospitalComment on above: Performed By: #### CBC #### [facility] [address] [id number] Monica KarenMonocytes/100 WBC (Bld)6.8 %Normal1.7-12.0The [facility] Comment on above:Performed By: #### CBC #### [facility] [address] [place] [address] Monica GuerreroenNEUT #6.6 103/ulCritically high1.4-6.5The [facility] HospitalComment on above:Performed By: #### CBC #### [facility] [address] [place] [address] Monica KarenNeutrophils/100 WBC (Bld)68.7 %Htqsks13.0-75.0The [facility] Comment on above:Performed By: #### CBC #### [facility] [address] [place] [address] Monica KarenPlatelet mean volume (Bld) [Entitic vol]9.4 fLCritically low9.5-13.5 The [facility] HospitalComment on above:Performed By: #### CBC #### [facility] [address] [place] [address] Monica WsotaFDJ559 103/afRtwute094-096Rgj [facility] HospitalComment on above: Performed By: #### CBC #### [facility] [address] [place] [address] Monica KarenRBC3.81 106/ulCritically low4.20-5.40The [facility] HospitalComment on above:Performed By: #### CBC #### [facility] [address] [place] [address] Monica KarenWBC9.6 103/ulNormal4.0-11.0The [facility] HospitalComment on above: Performed By: #### CBC #### [facility] [address] [address] Monica GuerreroenCREATININEon [id number] [Mass/Vol]0.71 mg/dLNormal 0.52-1.04Ohio[facility] Shelby HospitalComment on above:Performed By: #### BUN, CREA #### [facility] [address] [address] Monica KarenEGFR-AF MALAGASY>60Normal>=60The [facility] HospitalComment on above: Performed By: #### BUN, CREA #### [facility] [address] [place] [address] Monica KarenEGFR-NON AF MALAGASY>60Normal>=60The [facility] HospitalComment on above:Performed By: #### BUN, CREA #### [facility] [address] [place] [address] Monica GuerreroenUS PREG PLACENTAon [id number] PREG PLACENTAEXAMINATION: US PREG PLACENTA HISTORY: Traumatic AND/OR non-traumatic [...] Electronically authenticated by: NIHARIKA FUENTES Date: 2020-06-27 11:48[facility] Vital Signs Date TimeVital SignValuePerforming OpjgjjvkhSxwikkyd57-23-2266 16:03-0400Body .2 Ofe MOE Work Phone: [facility] HospitalLdrjqjrqih36-47-7479 16:03-0400Body mass index (BMI) [Ratio]25.22 kg/m2Lucrecia MOE Work Phone: [facility] HospitalAtioapwqxb59-00-8245 16:03-0400Body arisht97.03 kgLucrecia Bora MOE Work Phone: [facility]OU[facility] CenterRwmaayudqx41-85-6171 16:03-0400Diastolic blood qnvubvhj67 mm[Hg]Lucrecia Bora PA Work Phone: [address] [place] [address]Tglwgxzidz86-61-2263 16:03-0400Systolic blood mm[Hg]Lucrecia Bora PA Work Phone: [facility]OU[facility] CenterYuoyfkinpj40-69-2219 11:17-0400Body .5 cmKristin Louden GRAINER MACHINE.OPTOMETRIST ASSISTANT Work Phone: [place] Oqbpfe56-60-4769 11:17-0400Body mass index (BMI) [Ratio]25.28 kg/v9Dawtzad Louden GRAINER MACHINE.OPTOMETRIST ASSISTANT Work Phone: [place] Ipxrgb13-07-5451 11:17-0400Body yfjgla99.5 kgKristin Louden GRAINER MACHINE.OPTOMETRIST ASSISTANT Work Phone: [place] Irqmov77-97-3083 11:17-0400Diastolic blood qttuwxcq68 mm[Hg]Nicole Louden GRAINER MACHINE.OPTOMETRIST ASSISTANT Work Phone: [place] Jwtlja46-01-0879 11:17-0400Heart rate88 /min Nicole Louden GRAINER MACHINE.OPTOMETRIST ASSISTANT Work Phone: [place] Jbteqt48-55-3751 11:17-0400Systolic blood mm[Hg]Nicole Louden GRAINER MACHINE.OPTOMETRIST ASSISTANT Work Phone: [place] Mbmfzm72-24-2067 09:04-0500Body yldnfz860.2 cmPatricadelia Garcia LABORATORY TECHNOLOGY TEACHER Work Phone: [facility]OU[facility] CenterQrmgknsftp39-17-9234 09:04-0500Body mass index (BMI) [Ratio]25.37 kg/q5Etpwanrxadelia Garcia LABORATORY TECHNOLOGY TEACHER Work Phone: [facility]OU[facility] CenterHendhnpfki40-90-1867 09:04-0500Body mnunpd14.48 kgMick Garcia LABORATORY TECHNOLOGY TEACHER Work Phone: [facility] CenterDkakqedcib08-73-4698 09:04-0500Diastolic blood tntwyidr59 mm[Hg]Mick Garcia LABORATORY TECHNOLOGY TEACHER Work Phone: [phone] HospitalJubigqkkrq81-87-3372 09:04-0500Heart rate55 /min Mick Garcia LABORATORY TECHNOLOGY TEACHER Work Phone: [phone] HospitalObbdkzwtwl54-45-0008 09:04-0163TiD7% (BldA) [Mass fraction]96 %Mick Garcia LABORATORY TECHNOLOGY TEACHER Work Phone: [phone] [place], [place] [address]Tlkxvvmocs00-06-7129 09:04-0500Systolic blood hdnywyie825 mm[Hg]Mick Garcia LABORATORY TECHNOLOGY TEACHER Work Phone: [phone] [place], [place] [address]Txamvceple69-04-2883 11:02-0500Body rvnxoa908.2 Brittney Garcia LABORATORY TECHNOLOGY TEACHER Work Phone: [phone] [place], [place] [address]Bwnhchrjbk00-56-0376 11:02-0500Body mass index (BMI) [Ratio]26.69 kg/z3HhzfrclsMikc Garcia LABORATORY TECHNOLOGY TEACHER Work Phone: [phone] [place], [place] [address]Yisghhgwjz93-95-0991 11:02-0500Body temperature 99.81 [degF]Mick Garcia LABORATORY TECHNOLOGY TEACHER Work Phone: [phone] [place], [place] [address]Dppocoexep56-28-8568 11:02-0500Body vlxpio12.29 kgMick Garcia LABORATORY TECHNOLOGY TEACHER Work Phone: [phone] [place], [place] [address]Evqnmitwwi23-79-9364 11:02-0500Diastolic blood dedbbmii36 mm[Hg]Mick Garcia LABORATORY TECHNOLOGY TEACHER Work Phone: [phone])[phone] [place], [place] [address]Hconxbcudy42-91-7188 11:02-0500Heart mxzy742 /min Mick Garcia LABORATORY TECHNOLOGY TEACHER Work Phone: [phone]72[facility] HospitalOvwscjkphi22-82-5084 11:02-8688IhY9% (BldA) [Mass fraction]98 %Mick Garcia LABORATORY TECHNOLOGY TEACHER Work Phone: [phone]90[facility] HospitalKnhdazymzm19-73-1145 11:02-0500Systolic blood bztrvywq242 mm[Hg]Mick Trammelljustice LABORATORY TECHNOLOGY TEACHER Work Phone: [facility] HospitalXrwxvbxbyz92-15-9366 16:23-0500Body rtrejm620.2 Umm Carrillo LABORATORY TECHNOLOGY TEACHER Work Phone: [facility] HospitalFhrpeeberi67-77-7860 16:23-0500Body mass index (BMI) [Ratio]27.47 kg/g5PxzbmJosefina Carrillo LABORATORY TECHNOLOGY TEACHER Work Phone: [facility] HospitalJfqpyyocpl29-59-5179 16:23-0500Body temperature 98.71 [degF]Josefina Carrillo LABORATORY TECHNOLOGY TEACHER Work Phone: [facility] HospitalMavphlears96-78-9021 16:23-0500Body iwioph15.56 kgJosefina Carrillo LABORATORY TECHNOLOGY TEACHER Work Phone: [facility] HospitalSwbolkxjbi44-82-5996 16:23-0500Diastolic blood xspbesqe71 mm[Hg]Josefina Carrillo LABORATORY TECHNOLOGY TEACHER Work Phone: [facility] HospitalSxmvvphmqq11-61-5701 16:23-0500Heart rate97 /min Josefina Carrillo LABORATORY TECHNOLOGY TEACHER Work Phone: [facility] HospitalDhonfacrkz42-45-1967 16:23-3509UeJ0% (BldA) [Mass fraction]99 %Josefina Carrillo LABORATORY TECHNOLOGY TEACHER Work Phone: [facility] HospitalScnpevzzvy46-52-1165 16:23-0500Systolic blood qunlfcvf296 mm[Hg]Josefina Carrillo LABORATORY TECHNOLOGY TEACHER Work Phone: [facility] HospitalFptkeledni82-53-1272 16:03-0500Body llhnys777.5 cmKristin Louden GRAINER MACHINE.OPTOMETRIST ASSISTANT Work Phone: [place] Aaaxcv84-17-0838 16:03-0500Body mass index (BMI) [Ratio]26.68 kg/a1Rhudiln Louden GRAINER MACHINE.OPTOMETRIST ASSISTANT Work Phone: [phone] Vxzhjh38-46-4702 16:03-0500Body .56 kgKristin Louden GRAINER MACHINE.OPTOMETRIST ASSISTANT Work Phone: [place] Ejgjwf92-37-5495 09:11-0500Body mass index (BMI) [Ratio]27.5 kg/g4Zcpznagq [place] LABORATORY TECHNOLOGY TEACHER Work Phone: [phone] [place] [address]-05-2024 09:11-0500Body temperature 96.91 [degF]Mick Garcia LABORATORY TECHNOLOGY TEACHER Work Phone: [phone] [place] [address]-05-2024 09:11-0500Body agekij23.65 kgMick Garcia LABORATORY TECHNOLOGY TEACHER Work Phone: [phone] [place] [address]-05-2024 09:11-0500Diastolic blood yktedltv84 mm[Hg]Mick Garcia LABORATORY TECHNOLOGY TEACHER Work Phone: [phone])[address] [place] [address]-05-2024 09:11-0500Heart rate98 /min Mick Garcia LABORATORY TECHNOLOGY TEACHER Work Phone: [phone])[address] [place] [address]-05-2024 09:11-7477BfE3% (BldA) [Mass fraction]96 %Mick Gacria LABORATORY TECHNOLOGY TEACHER Work Phone: [phone])[facility] [place], [place] [address]Naqhqhiccv45-93-1079 09:11-0500Systolic blood mm[Hg]Mick Garcia LABORATORY TECHNOLOGY TEACHER Work Phone: [phone])[facility] [place], [place] [address]Uwxxpqlbao89-42-1761 16:18-0400Body mass index (BMI) [Ratio]27.41 kg/p8Qfnuwraflor Patel LABORATORY TECHNOLOGY TEACHER Work Phone: [phone] [place], [place] [address]Nvfhjhaevf01-67-6592 16:18-0400Body temperature 97.2 [degF]Lakesha Patel LABORATORY TECHNOLOGY TEACHER Work Phone: [phone] [place], [place] [address]Dzvytyegbd77-64-4588 16:18-0400Body .38 kgChflor Thomask LABORATORY TECHNOLOGY TEACHER Work Phone: 1(245)[facility] [place] [address]-28-2024 16:18-0400Diastolic blood cmfchbju52 mm[Hg]Lakesha Salvadortrick LABORATORY TECHNOLOGY TEACHER Work Phone: 1(013)[facility] [place], [place] [address]Zuaoroadfj35-08-1157 16:18-0400Systolic blood vynwgamc297 mm[Hg]Lakesha Salvadortrick LABORATORY TECHNOLOGY TEACHER Work Phone: 1([phone])[address] [place] [address]-24-2024 16:14-0400Diastolic blood iiwwlntb33 mm[Hg]Chair Jarett Work Phone: [place]10-24-2024 16:14-0400Heart rate96 /min Chair [place] Work Phone: [place]10-24-2024 16:14-0400Respiratory rate 18 /minChair Jarett Work Phone: [place]10-24-2024 16:14-0400Systolic blood bimsemtg558 mm[Hg]Chair Jarett Work Phone: [place]10-23-2024 15:35-0400Body ivgaxj332.[address] Work Phone: [place]10-23-2024 15:35-0400Body mass index (BMI) [Ratio]27.18 kg/m2Leigha Lake [address] Work Phone: [phone] 15:35-0400Body qxualk15.[address] Work Phone: [phone] on above:verbal, per patient 01-26-2024 16:39-0400Body eppufq968.5 cmKristin Louden GRAINER MACHINE.OPTOMETRIST ASSISTANT Work Phone: [phone] Municipal HospitalWminkg73-50-1339 16:39-0400Body mass index (BMI) [Ratio]27.18 kg/o4Oucwjug Louden GRAINER MACHINE.OPTOMETRIST ASSISTANT Work Phone: [phone] Municipal HospitalIrcqlt83-60-8328 16:39-0400Body zrmcuq40.02 kgKristin Louden GRAINER MACHINE.OPTOMETRIST ASSISTANT Work Phone: [phone] Municipal HospitalBuhybb78-21-8677 16:24-0400Diastolic blood fdiwdwrb09 mm[Hg]Chair [place]opa Work Phone: [place]10-03-2024 16:24-0400Heart rate80 /min Chair Jarett Work Phone: [place]10-03-2024 16:24-0400Respiratory rate 18 /minChair Jarett Work Phone: [place]10-03-2024 16:24-0400Systolic blood fzdkrkuu268 mm[Hg]Chair Jarett Work Phone: [place]09-26-2024 10:38-0400Body mass index (BMI) [Ratio]28.21 kg/o9LidtfdTitus Taylor MD Work Phone: cLancaster Municipal HospitalOarqrq69-29-7979 10:38-0400Body temperature 97.2 [degF]Titus Taylor MD Work Phone: cLancaster Municipal HospitalCnbddd96-93-5731 10:38-0400Body degowv28 kg Titus Taylor MD Work Phone: cLancaster Municipal HospitalTxwhla00-48-0824 10:38-0400Diastolic blood greaawoh07 mm[Hg]Titus Taylor MD Work Phone: cLancaster Municipal HospitalVsanzu03-35-4522 10:38-0400Heart rate92 /min Titus Taylor MD Work Phone: cLancaster Municipal HospitalVbcvvn64-91-8950 10:38-0400Respiratory rate 16 /minAdamalka Taylor MD Work Phone: cL[facility] HospitalAgjyyj27-02-8707 10:38-6104TmY3% (BldA) [Mass fraction]100 %Titus Taylor MD Work Phone: cLancaster Municipal HospitalBssmsc26-69-6234 10:38-0400Systolic blood tbqknzev814 mm[Hg]Titus Taylor MD Work Phone: cLancaster Municipal HospitalOzqbnb03-01-0302 15:52-0400Body mass index (BMI) [Ratio]28.28 kg/d9PdxghbTitus Taylor MD Work Phone: [place] [address]-18-2024 15:52-0400Body temperature 97.5 [degF]Titus Taylor MD Work Phone: cLancaster Municipal HospitalQyxdgn74-89-0345 15:52-0400Body .2 kgTitus Taylor MD Work Phone: [facility] centerand Fvckow28-62-5378 15:52-0400Diastolic blood ufrqyghd84 mm[Hg]Titus Taylor MD Work Phone: cf[facility] centerand Ubnxds00-58-4209 15:52-0400Heart rate92 /min Titus Taylor MD Work Phone: [facility] centerand Cjjukz29-77-2284 15:52-0400Respiratory rate 18 /minTitus Taylor MD Work Phone: [place] [address]-18-2024 15:52-1890DqO5% (BldA) [Mass fraction]100 %Titus Taylor MD Work Phone: cLancaster Municipal HospitalQobxra90-15-7614 15:52-0400Systolic blood ldronnws257 mm[Hg]Titus Taylor MD Work Phone: cLancaster Municipal HospitalAwdesw91-89-6003 13:05-0400Body xkaajz321.5 cmKristin Louden GRAINER MACHINE.OPTOMETRIST ASSISTANT Work Phone: [phone] Municipal HospitalPqprsk94-67-0934 13:05-0400Body mass index (BMI) [Ratio]28.55 kg/e0Elrepye Louden GRAINER MACHINE.OPTOMETRIST ASSISTANT Work Phone: [phone] county health centerand Mncnvk49-86-6820 13:05-0400Body etiyhj27.01 kgKristin Louden GRAINER MACHINE.OPTOMETRIST ASSISTANT Work Phone: [phone] Vpaahi91-12-8770 13:05-0400Diastolic blood npwwpwir94 mm[Hg]Nicole Louden GRAINER MACHINE.OPTOMETRIST ASSISTANT Work Phone: [phone] county health centerand Uqdovu42-76-2045 13:05-0400Heart rate93 /min Nicole Louden GRAINER MACHINE.OPTOMETRIST ASSISTANT Work Phone: [phone] county health centerand Tuhits37-06-1766 13:05-0240LpJ8% (BldA) [Mass fraction]99 %Nicole Louden GRAINER MACHINE.OPTOMETRIST ASSISTANT Work Phone: [phone] Municipal HospitalQunnkd85-31-2695 13:05-0400Systolic blood njwoyoeb348 mm[Hg]Nicole Louden GRAINER MACHINE.OPTOMETRIST ASSISTANT Work Phone: [phone] [facility] centerand Oeqxbb75-15-3339 08:50-0500Diastolic blood oasajnzn43 mm[Hg]Josefina Carrillo LABORATORY TECHNOLOGY TEACHER Work Phone: [phone] [place], [place] [address]Foqctphgya69-14-0501 08:50-0500Systolic blood nfvzwkye258 mm[Hg]Josefina Carrillo LABORATORY TECHNOLOGY TEACHER Work Phone: [phone] [place], [place] [address]Aehlpuncnm54-52-5263 08:36-0500Body tzktbo621.2 Umm Carrillo LABORATORY TECHNOLOGY TEACHER Work Phone: [phone] HospitalHyknqsdtrh50-17-6083 08:36-0500Body mass index (BMI) [Ratio]29.41 kg/l0IcgwjJosefina Carrillo LABORATORY TECHNOLOGY TEACHER Work Phone: [facility] HospitalYlypaqhsix83-09-4191 08:36-0500Body temperature 98.6 [degF]Josefina Carrillo LABORATORY TECHNOLOGY TEACHER Work Phone: [phone] HospitalXegxpavofg84-85-1006 08:36-0500Body ezhndy67.19 kgJosefina Carrillo LABORATORY TECHNOLOGY TEACHER Work Phone: [phone] HospitalGuewvnfywl99-23-4307 08:36-0500Heart rate85 /min Josefina Carrillo LABORATORY TECHNOLOGY TEACHER Work Phone: [phone] HospitalRdcvxyhntl89-33-0183 08:36-0883HeS3% (BldA) [Mass fraction]99 %Josefina Carrillo LABORATORY TECHNOLOGY TEACHER Work Phone: [phone] HospitalHleznjlchu90-11-3602 11:31-0400Body xcfbax301.5 cmKristin Louden GRAINER MACHINE.OPTOMETRIST ASSISTANT Work Phone: [phone] centerand Odedue75-88-4648 11:31-0400Body wjztux37 kg Nicole Louden GRAINER MACHINE.OPTOMETRIST ASSISTANT Work Phone: [phone] Municipal HospitalXfxdjd40-93-4742 07:17-1220Body jeutvw85.35 kgNicole Marquis APRN.OPTOMETRIST ASSISTANT Work Phone: [facility] Encounters Encounter DateEncounter TypeCare ProviderFacilityStart: 02-21-2025 End: 87-93-8485Gjhbxx flowsheetBayley Malicki VICKNOMS [facility] Start: 02-21-2025 End: 86-04-8739Atbwej flowsheetBayley Malicki VICKNOMS [facility] Start: 02-21-2025 End: 27-94-6437prcritbkvzWFDGLD MALICKINot AvailableStart: 02-20-2025 End: 84-10-7555OpptbhCaroline Carrillo NP Work Phone: [facility] HospitalComment on above: Candidiasis (Primary Dx)Start: 02-06-2025 End: 31-81-9387spqlmesqqtIILJAT MALICKINot AvailableStart: 02-06-2025 End: 26-87-5750Apdvuo flowsheetBayley Malicki VICKNOMS [facility] Start: 02-06-2025 End: 82-34-9295Wvwruf flowsheetBayley Malicki VICKNOMS [facility] Start: 01-23-2025 End: 46-57-7584ihyyhajwppRPIQXK MALICKINot AvailableStart: 01-22-2025 End: 49-51-6868Zcruaxd encounter Juliet MOE Work Phone: NONE HealthcareStart: 01-22-2025 End: 87-33-9878Hdocfgbv preventive med est patient 40-64yrsAhenna MOE Work Phone: noMS José OBGYNComment on above:Well woman exam with routine gynecological exam; Encounter for screening mammogram for malignant neoplasm of breast; Uses controlStart: 01-22-2025 End: 80-65-7049pabahvepnoQAS RAMEYNot AvailableStart: 01-22-2025 End: 16-65-0226Gttocc flowsPatrice MOE Work Phone: NOMS Fine OBGYNStart: 01-22-2025 End: 41-65-8689Egptjh lindaaPtrice MOE Work Phone: [facility] Fine OBGYNStart: 01-22-2025 End: 46-07-1907Xnwwazndr Result EncounterLucrecia MOE Work Phone: NOMS External Department UnsolicitedStart: 01-19-2025 End: 75-51-9899sejawqxpetQZJQYNZWInspire [facility] Start: 01-18-2025 End: 73-34-2198cfodvuvcygXkhlMemorial HospitalComment on above:Need for immunization against influenza (Primary Dx)Start: 01-16-2025 End: 62-23-9390bkuiropzoqTELTYK MALICKINot AvailableStart: 01-16-2025 End: 78-34-8460Aburwl flowsheetBayley Malicki LPCNOMS [facility] Start: 01-16-2025 End: 66-99-5221Xilfyf flowsheetBayley Malicki LPCNOMS [facility] Start: 01-11-2025 End: 56-88-1375lxksjixfueVKFKXI MALICKINot AvailableStart: 01-11-2025 End: 33-68-1967Ndppel flowsheetBayley Malicki LPCNOMS [facility] Start: 01-11-2025 End: 69-30-7608Qojvxb flowsheetBayley Malicki LPCNOMS [facility] Start: 12-28-2024 End: 50-89-7707cslypjaqrrIFBOIIT LOUDENFacility:[facility]tart: 12-21-2024 End: 78-29-0805hcusjwszwoTEYJHN MALICKINot AvailableStart: 12-21-2024 End: 78-80-2948Cfufyp flowsheetBayley Malicki LPCNOMS [facility] Start: 12-21-2024 End: 10-43-7175Mdgadm flowsheetBayley Malicki LPCNOMS [facility] Start: 12-15-2024 End: 34-40-8989UfldkzWuukiaq Louden GRAINER MACHINE.OPTOMETRIST ASSISTANT Work Phone: General SurgeryComment on above:Refill RequestStart: 12-14-2024 End: 68-73-6842envaktxkjuGCCZWM MALICKINot AvailableStart: 12-14-2024 End: 12-26-3815Ecrwtr flowsheetBayley Malicki LPCNOMS [facility] Start: 12-14-2024 End: 39-91-3751Hlctan flowsheetBayley Malicki LPCNOMS [facility] Start: 11-25-2024 End: 22-95-5894iykoscormoMmbtjzz Louden GRAINER MACHINE.OPTOMETRIST ASSISTANT Work Phone: [facility] REJStart: 11-25-2024 End: 74-38-1919Obonywg encounter procedureKristin Louden GRAINER MACHINE.OPTOMETRIST ASSISTANT Work Phone: [facility] REJComment on above:wegovyStart: 11-15-2024 End: 33-96-4391hbpguaophpVWOIJW MALICKINot AvailableStart: 11-15-2024 End: 87-46-7449Uewxre flowsheetBayley Malicki LPCNOMS [facility] Start: 11-15-2024 End: 71-08-9007Vmuirr flowsheetBayley Malicki LPCNOMS [facility] Start: 11-06-2024 End: 04-68-8155dnahvgpuwjUCMJNF MALICKINot AvailableStart: 11-06-2024 End: 23-99-0198Hbskuc flowsheetBayley Malicki LPCNOMS [facility] Start: 11-06-2024 End: 69-52-9420Odfdfx flowsheetBayley Malicki LPCNOMS [facility] Start: 10-25-2024 End: 65-97-5665nwjosspjkxCNKYLO MALICKINot AvailableStart: 10-25-2024 End: 64-18-5204Onsacq flowsheetBayley Malicki LPCNOMS CI BHStart: 10-25-2024 End: 33-34-1552Dzbsqz flowsheetBayley Malicki LPCNOMS CI BHStart: 10-19-2024 End: 93-76-1368leocviunxvQLWIVQ MALICKINot AvailableStart: 10-19-2024 End: 84-89-9495Unjcmu flowsheetBayley Malicki LPCNOMS CI BHStart: 10-19-2024 End: 32-13-6159Parfsy flowsheetBayley Malicki LPCNOMS CI BHStart: 10-02-2024 End: 69-51-6348Cphowtkcn Result EncounterGeneric External Data ProviderNOMS External Department UnsolicitedStart: 10-02-2024 End: 66-64-7021Lpnavhigw Result EncounterGeneric External Data ProviderNOMS External Department UnsolicitedStart: 10-02-2024 End: 13-75-4705jrfxxeinitETNHVGDG G HOHMANFacility:[facility] HospitalStart: 10-02-2024 End: 10-59-5843Zwsolxt encounter Brian Marquis APRN.OPTOMETRIST ASSISTANT Work Phone: [facility] REJComment on above:History of obesity (Primary Dx); S/P laparoscopic sleeve gastrectomy; PCOS (polycystic ovarian syndrome); Mild obstructive sleep apnea; OverweightStart: 10-02-2024 End: 52-55-0706bbwolbkqdjHYLOGBD LOUDENFacility:[facility]tart: 09-14-2024 End: 12-81-4396mquzdxgljjOLFEPNIF HOLMANFacility: SURG CLINICStart: 09-13-2024 End: 05-80-3538kqhhujegheWBTEWA MALICKINot AvailableStart: 09-13-2024 End: 31-74-0825Owvdae flowsheetBayley Malicki LPCNOMS CI BHStart: 09-13-2024 End: 47-37-6775Ovojhf flowsheetBayley Malicki LPCNOMS CI BHStart: 09-08-2024 End: 39-37-1453IO Patient Thiago Marquis APRN.CNP Work Phone: [facility] SurgeryComment on above:RefillStart: 09-06-2024 End: 10-26-9997wbwulrcpfpDPZVZA MALICKINot AvailableStart: 09-06-2024 End: 85-66-7745Jkszvq flowsheetBayley Malicki LPCNOMS CI BHStart: 09-06-2024 End: 10-18-8475Kdpydd flowsheetBayley Malicki LPCNOMS CI BHStart: 09-04-2024 End: 47-62-2306RwupukYrljbbi Louden APRN.OPTOMETRIST ASSISTANT Work Phone: General SurgeryComment on above:Refill RequestStart: 08-30-2024 End: 94-16-7696tpczjduxiaBGXIXY MALICKINot AvailableStart: 08-30-2024 End: 26-68-2873Xakfli flowsheetBayley Malicki LPCNOMS CI BHStart: 08-30-2024 End: 08-91-3062Jwbero flowsheetBayley Malicki LPCNOMS CI BHStart: 08-07-2024 End: 30-53-7305ilzoarefdyYYQHLL MALICKINot AvailableStart: 08-07-2024 End: 49-82-1313Cfwjkn flowsheetBayley Malicki LPCNOMS CI BHStart: 08-07-2024 End: 98-76-9040Qpwuve flowsheetBayley Malicki LPCNOMS CI BHStart: 07-31-2024 End: 16-20-0212otprchcjwoLGPVYM MALICKINot AvailableStart: 07-31-2024 End: 83-57-0872Ofayaj flowsheetBayley Malicki LPCNOMS CI BHStart: 07-31-2024 End: 61-34-5844Dbzbej flowsheetBayley Malicki LPCNOMS CI BHStart: 07-27-2024 End: 35-88-6812oviujkwwnwDNSGIB MALICKINot AvailableStart: 07-27-2024 End: 66-34-0428Yjqyvo flowsheetBayley Malicki LPCNOMS CI BHStart: 07-27-2024 End: 57-91-6890Twotwk flowsheetBayley Malicki LPCNOMS CI BHStart: 07-17-2024 End: 23-40-8425phsyuezfndOJYPZL MALICKINot AvailableStart: 07-17-2024 End: 49-60-6511Erexuu flowsheetBayley Malicki LPCNOMS CI BHStart: 07-17-2024 End: 16-07-5607Ljlwnr flowsheetBayley Malicki LPCNOMS CI BHStart: 07-10-2024 End: 16-90-2081bqkwmqbacpIUHOOP MALICKINot AvailableStart: 07-10-2024 End: 67-57-8285Yctppa flowsheetBayley Malicki LPCNOMS CI BHStart: 07-10-2024 End: 75-79-9031Lnvsty flowsheetBayley Malicki LPCNOMS CI BHStart: 07-05-2024 End: 78-76-9075VlrvtbVrskvtr Louden APRN.OPTOMETRIST ASSISTANT Work Phone: General SurgeryComment on above:Refill RequestStart: 07-04-2024 End: 58-34-0435Ippzrlfeh to same [place] surgery [place]Nic[place] APRN.OPTOMETRIST ASSISTANT Work Phone: General SurgeryComment on above:Zepbound pre authorizationStart: 07-04-2024 End: 56-92-1408mjiyrxarqvSykuinu Louden APRN.OPTOMETRIST ASSISTANT Work Phone: General SurgeryStart: 07-04-2024 End: 04-64-9294MywfocFscyxhh Louden APRN.OPTOMETRIST ASSISTANT Work Phone: General SurgeryComment on above:Refill RequestStart: 06-19-2024 End: 80-54-8361etcicikohwTMNTUS MALICKINot AvailableStart: 06-19-2024 End: 92-86-0815Ykqnek flowsheetBayley Malicki LPCNOMS CI BHStart: 06-19-2024 End: 39-53-7189Iidbfd flowsheetBayley Malicki LPCNOMS CI BHStart: 06-15-2024 End: 13-59-6453Yllvhc flowsheetPatricia Kevin Garcia LABORATORY TECHNOLOGY TEACHER Work Phone: NOMS FNR FMStart: 06-15-2024 End: 23-42-4991Arvkse flowsheetPatricia A Hackenburg LABORATORY TECHNOLOGY TEACHER Work Phone: NOMS FNR FMStart: 06-15-2024 End: 41-00-3029Uwxzla outpatient visit 25 minutesPatricia A [place]burg LABORATORY TECHNOLOGY TEACHER Work Phone: noMS FNR FMComment on above:Diarrhea, unspecified type (Primary Dx); Upper respiratory tract infection, unspecified typeStart: 06-15-2024 End: 23-89-4927xtoavbobfiQXRERUZV A HACKENBURGNot AvailableStart: 06-08-2024 End: 82-26-6368Gdzemv flowsheetPatricia A Hackenburg LABORATORY TECHNOLOGY TEACHER Work Phone: noMS FNR FMStart: 06-08-2024 End: 43-77-8616Glorpw flowsheetPatricia A Hackenburg LABORATORY TECHNOLOGY TEACHER Work Phone: noMS FNR FMStart: 06-08-2024 End: 64-11-5402Ypoirv outpatient visit 15 minutesPatristar [facility]ia Kevin Catherineenburg LABORATORY TECHNOLOGY TEACHER Work Phone: NOMS FNR FMComment on above:Chest congestion (Primary Dx); Viral URI with cough; Exposure to influenzaStart: 06-08-2024 End: 90-76-0358eyurmfbswcWRIJPUKD A HACKENBURGNot AvailableStart: 05-10-2024 End: 85-30-8205Znqlwz outpatient visit 15 minutesSaanisa Carrillo LABORATORY TECHNOLOGY TEACHER Work Phone: NOMS FNR FMComment on above:Nasal congestion (Primary Dx); Antibiotic-induced yeast infection; Acute non-recurrent pansinusitisStart: 05-10-2024 End: 10-15-6179ahpqqhbbfbKVRSO KAMPFERNot AvailableStart: 05-10-2024 End: 17-71-7052Thhhpp flowsheetSarah Kampfer LABORATORY TECHNOLOGY TEACHER Work Phone: NOMS FNR FMStart: 05-10-2024 End: 31-37-9331Mcxhfd flowsheetSarah Denyspfer LABORATORY TECHNOLOGY TEACHER Work Phone: NOMS FNR FMStart: 04-27-2024 End: 99-54-9640Tudsfdsru to same day surgery [place]Nic[place] Mar[place] APRN.OPTOMETRIST ASSISTANT Work Phone: [facility] SurgeryComment on above:Overweight (Primary Dx); History of obesity; Encounter for surgical aftercare following surgery of digestive system; S/P laparoscopic sleeve gastrectomyStart: 04-27-2024 End: 36-88-8970kkoqcsgvxvAIXTQEE LOUDENFacility:[facility] HospitalStart: 04-27-2024 End: 89-17-9123Kltxvbjktphy consultation with Sunita Marquis APRN.OPTOMETRIST ASSISTANT Work Phone: [facility] SurgeryStart: 04-19-2024 End: 16-41-8697UsswpsLshiwri Louden APRN.OPTOMETRIST ASSISTANT Work Phone: [facility] SurgeryComment on above:Refill RequestStart: 04-10-2024 End: 66-89-1088QxeompAihfkfe Louden APRN.OPTOMETRIST ASSISTANT Work Phone: [facility] SurgeryComment on above:Med Change Request Start: 04-07-2024 End: 51-56-9641Lofumsozg Result EncounterGeneric External Data ProviderNOMS External Department UnsolicitedStart: 04-07-2024 End: 99-64-7345Upjvdfbcx Result EncounterGeneric External Data ProviderNOMS External Department UnsolicitedStart: 04-07-2024 End: 36-61-4426nuwndclbwrSIWEIV FANNYUREDDYFacility:[facility] Start: 02-29-2024 End: 60-43-3488Wyxhkavoq to same day surgery centerNicole Marquis APRN.OPTOMETRIST ASSISTANT Work Phone: [facility] SurgeryComment on above:zepboundStart: 02-29-2024 End: 50-90-1971xetutxgnrzUybjhth Louden APRN.OPTOMETRIST ASSISTANT Work Phone: [facility] SurgeryStart: 02-23-2024 End: 07-56-7222pnptnigsesRdmpfck CherriFacility:[facility]tart: 02-22-2024 End: 52-85-8716bqybtivopkDjqrg Narcisa Denson Work Phone: Hematology/OncologyComment on above:Hereditary hemochromatosis (HCC) (Primary Dx)Start: 02-22-2024 End: 75-32-7736Uktngbdtw Result EncounterGeneric External Data ProviderNOMS External Department UnsolicitedStart: 02-22-2024 End: 81-08-2007Gkonwpgzu Result EncounterGeneric External Data ProviderNOMS External Department UnsolicitedStart: 02-17-2024 End: 34-87-8430Bkcgwv OnlyMick Garcia LABORATORY TECHNOLOGY TEACHER Work Phone: NOLP FNR FMComment on above:Low serum calcium (Primary Dx)Start: 02-15-2024 End: 90-00-5015Qtbuvo flowsAngelo Garcia LABORATORY TECHNOLOGY TEACHER Work Phone: NOMS FNR FMStart: 02-15-2024 End: 18-15-5102Pmvtns flowsAngelo Garcia LABORATORY TECHNOLOGY TEACHER Work Phone: NOMS FNR FMStart: 02-15-2024 End: 67-15-8141Grgzbyfyiani care manage srvc 7 day dischargePaandra Garcia LABORATORY TECHNOLOGY TEACHER Work Phone: NOMS FNR FMComment on above:Hypokalemia (Primary Dx); Hereditary hemochromatosis (CMS/HCC); Pneumonia of right lower lobe due to infectious organismStart: 02-10-2024 End: 32-14-6158Kuzguvltzz and management of [facility]Salt [facility]tart: 02-10-2024 End: 17-52-1342pqzcsrioovZXTANOOT HOLMANFacility:[facility] Hospitaltart: 02-10-2024 End: 61-00-4951Naxtzuzov encounterDagoberto Mendez MD Work Phone: [facility]Start: 02-08-2024 End: 55-42-2399Cqytdl OnlyLakesha Patel LABORATORY TECHNOLOGY TEACHER Work Phone: NOMS FNR FMComment on above:Bronchitis (Primary Dx) Start: 02-07-2024 End: 77-27-7743Ryftyb outpatient visit 25 minutesChristy A Patel LABORATORY TECHNOLOGY TEACHER Work Phone: NOVD FNR FMComment on above:Acute left otitis media (Primary Dx); Fever, unspecified fever cause; Wheezing; BronchitisStart: 02-07-2024 End: 48-60-9750Zicafr flowsheetChristy A Patel LABORATORY TECHNOLOGY TEACHER Work Phone: noms FNR FMStart: 02-07-2024 End: 49-22-1901Clrwvi flowsheetChristy A Patel LABORATORY TECHNOLOGY TEACHER Work Phone: noms FNR FMStart: 02-03-2024 End: 15-84-5405yepobiodowRfzpd [address] Work Phone: Hematology/OncologyComment on above:Hereditary hemochromatosis (HCC) (Primary Dx)Start: 02-03-2024 End: 21-09-4464Cmlbttzrb Result EncounterGeneric External Data ProviderNOMS External Department UnsolicitedStart: 02-03-2024 End: 26-48-9797Nyyxmhccm Result EncounterGeneric External Data ProviderNOMS External Department UnsolicitedStart: 02-02-2024 End: 46-13-8999Sycihgsgf to same day surgery [address] Work Phone: General SurgeryComment on above:History of sleeve gastrectomy (Primary Dx); Overweight (BMI 25.0-29.9); Dietary counseling and surveillanceStart: 02-02-2024 End: 01-07-3140ouckjuluapRSVW ROSSIFacility:[facility]tart: 02-02-2024 End: 90-89-5814Lfcbwajstitf consultation with Ciara [address] Work Phone: General SurgeryStart: 02-02-2024 End: 17-48-4738Ojckpnqev encounterDeb Maza RNHematology/OncologyStart: 01-26-2024 End: 52-99-7303youjtjulabUBBBSYU LOUDENFacility:[facility]tart: 01-26-2024 End: 58-95-9814Aasqxfoafsnt consultation with patientNicole Garcialeydi BOSE.SULAMIAN Work Phone: [facility] SurgeryStart: 01-26-2024 End: 67-90-2786Thkadeczr to same day surgery centerNicole Garcialeydi BOSE.OPTOMETRIST ASSISTANT Work Phone: [facility] SurgeryComment on above:Overweight (Primary Dx); Mild obstructive sleep apneaVisitStart: 01-26-2024 End: 16-23-3709L-mail encounter from caregiverNicole Garcialeydi BOSE.OPTOMETRIST ASSISTANT Work Phone: [facility] SurgeryStart: 01-16-2024 End: 79-58-4001UtsjshMpcnydx Loudleydi BOSE.OPTOMETRIST ASSISTANT Work Phone: [facility] SurgeryComment on above:Refill RequestStart: 01-13-2024 End: 41-23-3444ktxxgbjyaiYuqsp [address] Work Phone: Hematology/OncologyComment on above:Hereditary hemochromatosis (HCC) (Primary Dx)Start: 01-13-2024 End: 88-23-6300Fholeamge Result EncounterGeneric External Data ProviderNOMS External Department UnsolicitedStart: 01-13-2024 End: 54-81-0935Rdgkiczqy Result EncounterGeneric External Data ProviderNOMS External Department UnsolicitedStart: 01-13-2024 End: 86-51-3913Rgldlftmn encounterFelicia Bipin RNHematology/OncologyComment on above:treatment parametersStart: 01-06-2024 End: 49-37-5719Fsdyxy outpatient visit 25 minutesAdarsh Brandon MATA Work Phone: Hematology/OncologyComment on above:Hereditary hemochromatosis (HCC) (Primary Dx)Start: 12-30-2023 End: 59-32-4824Xocyqqvem Result EncounterGeneric External Data ProviderNOMS External Department UnsolicitedStart: 12-30-2023 End: 93-75-7419Rccmltjwd Result EncounterGeneric External Data ProviderNOMS External Department UnsolicitedStart: 12-29-2023 End: 82-96-1176Jnkutj outpatient new 45 minutesAdarsh Brandon MATA Work Phone: Hematology/OncologyComment on above:High total iron binding capacity (Primary Dx); High serum transferrin saturationStart: 12-29-2023 End: 53-22-0360KdauzxLlstfmd Louden APRN.OPTOMETRIST ASSISTANT Work Phone: General SurgeryComment on above:Refill RequestStart: 12-24-2023 End: 67-78-3693Rqfulz Genesis Carrillo NP Work Phone: NOMS FNR FMComment on above:Candidiasis (Primary Dx) Start: 12-16-2023 End: 86-52-6866Ywcjojprm to same day surgery centerNicole Marquis APRN.OPTOMETRIST ASSISTANT Work Phone: General SurgeryComment on above:LabsStart: 12-16-2023 End: 66-45-0907R-mail encounter from caregiverNicole Marquis APRN.OPTOMETRIST ASSISTANT Work Phone: General SurgeryStart: 12-10-2023 End: 18-10-3107Nujiekdhc to [place]Nic[place] APRN.OPTOMETRIST ASSISTANT Work Phone: General SurgeryComment on above:zepbound and controlStart: 12-10-2023 End: 61-33-2597sgtynkzobaElvqibl Louden APRN.OPTOMETRIST ASSISTANT Work Phone: General SurgeryStart: 12-06-2023 End: 23-15-8683Gkymftllr Result EncounterGeneric External Data ProviderNOMS External Department UnsolicitedStart: 12-06-2023 End: 44-33-7963Zzoogufnz Result EncounterGeneric External Data ProviderNOMS External Department UnsolicitedStart: 11-30-2023 End: 40-80-6628Lvdiqzenn to same day surgery centerNicole Marquis APRN.OPTOMETRIST ASSISTANT Work Phone: General SurgeryComment on above:Blood workStart: 11-30-2023 End: 65-05-0218iaqkdyofbwCfulwcw Louden APRN.OPTOMETRIST ASSISTANT Work Phone: [phone] SurgeryStart: 11-29-2023 End: 01-12-3020Wkbrretpj to same day surgery [place]Nic[place] APRN.OPTOMETRIST ASSISTANT Work Phone: [phone] SurgeryComment on above:zepbound out of stock Start: 11-29-2023 End: 58-64-2624nyctzqerzsKvcilco Louden GRAINER MACHINE.OPTOMETRIST ASSISTANT Work Phone: General SurgeryStart: 42-46-0390UmxusnCvehrik Louden GRAINER MACHINE.OPTOMETRIST ASSISTANT Work Phone: [phone] SurgeryComment on above:Refill RequestStart: 31-57-9206TA Get Medical AdviceNicole Marquis APRN.OPTOMETRIST ASSISTANT Work Phone: [phone] SurgeryComment on above:phentermine refill never sentStart: 10-06-2023 End: 99-04-8898Vygwuiq encounter procedureKrfazal Marquis APRN.OPTOMETRIST ASSISTANT Work Phone: [phone] SurgeryComment on above:S/P laparoscopic sleeve gastrectomy (Primary Dx); Class 1 obesity with body mass index (BMI) of 32.0 to 32.9 in adult, unspecified obesity type, unspecified whether serious comorbidity present; History of hypothyroidismStart: 12-20-5804Touoaqqrf to same day surgery center Nicole Marquis APRN.OPTOMETRIST ASSISTANT Work Phone: [phone] SurgeryComment on above:pre authorization for jaxon deniedStart: 74-21-1867szmtsmkefiShtpmdy Louden APRN.OPTOMETRIST ASSISTANT Work Phone: [phone] SurgeryStart: 56-01-4453RvpaviMwijxnp Louden APRN.OPTOMETRIST ASSISTANT Work Phone: [phone] SurgeryComment on above:Refill RequestStart: 32-42-9363ZfptgpAlluufw Louden APRN.OPTOMETRIST ASSISTANT Work Phone: [phone] SurgeryComment on above:Refill RequestStart: 81-11-3650Yvhfijgilbert Carrillo LABORATORY TECHNOLOGY TEACHER Work Phone: NORF FNR FMStart: 53-34-8341Tjcsdg flowsheetSdenis Carrillo LABORATORY TECHNOLOGY TEACHER Work Phone: NOHB FNR FMStart: 05-19-2023 End: 32-24-4633Impgfk outpatient visit 15 minutesJosefina Carrillo LABORATORY TECHNOLOGY TEACHER Work Phone: NOOM FNR FMComment on above:Nasal congestion (Primary Dx)Start: 76-45-3256Sbqpuc OnlyNicole Marquis APRN.OPTOMETRIST ASSISTANT Work Phone: General SurgeryStart: 39-18-5910barlnttfhoTxvbxpt Louden APRN.OPTOMETRIST ASSISTANT Work Phone: [phone] SurgeryComment on above:[facility] needing more information on the phentermineStart: 02-03-2023 End: 15-77-4207bokefvlitiOyehmkh Louden APRN.OPTOMETRIST ASSISTANT Work Phone: [facility] SurgeryComment on above:Class 1 obesity with body mass index (BMI) of 32.0 to 32.9 in adult, unspecified obesity type, unspe cified whether serious comorbidity present (Primary Dx)Start: 02-03-2023 End: 80-51-3959Vkapgddndpuu consultation with Sunita Marquis APRN.OPTOMETRIST ASSISTANT Work Phone: [facility] MAINStart: 38-99-5013Upbvqd Nicole Marquis APRN.OPTOMETRIST ASSISTANT Work Phone: [phone] SurgeryComment on above:Med Change Request Start: 54-85-8625RD Get Medical AdviceNicole Marquis APRN.OPTOMETRIST ASSISTANT Work Phone: [phone] SurgeryComment on above:PRESCRIPTION SENT TO WRONG PHARMACY AND NEEDS TO BE MAIL ORDER!Start: 04-41-1707MW Get Medical Advice Nicole Marquis APRN.OPTOMETRIST ASSISTANT Work Phone: [phone] SurgeryComment on above:wegvoy sent to pharmacy and not mail orderStart: 00-84-5201DscggqSboerye Louden APRN.OPTOMETRIST ASSISTANT Work Phone: [facility] SurgeryComment on above:Refill RequestStart: 61-34-8954zkavicsziwIeglhpcNurys Marquis APRN.SULAIMAN Work Phone: General SurgeryComment on above:zhou scriptStart: 10-28-2022 End: 64-65-8378ytyezgcxgeMzmsbio Louden APRN.OPTOMETRIST ASSISTANT Work Phone: General SurgeryComment on above:Class 1 obesity with body mass index (BMI) of 32.0 to 32.9 in adult, unspecified obesity type, unspe cified whether serious comorbidity present (Primary Dx); PCOS (polycystic ovarian syndrome); S/P laparoscopic sleeve gastrectomyStart: 10-28-2022 End: 68-80-9797Fbmkhvoygjxj consultation with Sunita Marquis APRN.SULAIMAN Work Phone: [facility] MAINStart: 06-02-2021 End: 50-21-7918kyqoqcvtnxXY SEAN FAZIOFacility:D4Ntvdr: 10-11-2020 End: 45-28-0327Zqgmgfzeyj and management of inpatientDR MARIYA YAMILKA Facility:S7Henph: 10-08-2020 End: 08-39-3924lmljrujvqeUIMKHJ VENKATAFacility:F0Vtjhr: 10-07-2020 End: 69-08-1055lbrmdnaldnKW SEAN FAZIOFacility:X1Ujozm: 10-04-2020 End: 41-15-8374flgoyegfeyBSMPRS MOOREFacility:M9Mtkxr: 10-03-2020 End: 06-68-0133ttvjfkfzdnPQ MARIYA PRATHERFacility:E4Qjmld: 10-01-2020 End: 89-87-7777cxipcsleqgNI STEPHANY GUERREROCAROLEChristosFacility:N7Ejsjq: 10-01-2020 End: 18-88-2072tovrakbqwzRSEVQC VENKATAFacility:K6Loipf: 09-26-2020 End: 73-31-3443lcdittoicdKQ SEAN FAZIOFacility:X0Hyjoz: 09-24-2020 End: 01-32-6914nhjgcmwlgeRK SEAN FAZIOFacility:A0Iwscz: 09-20-2020 End: 70-80-9195ddwohqdmolKC SEAN FAZIOFacility:I1Ydblc: 09-17-2020 End: 81-46-3001gdysvocmykKR BUTCH Russell WESTFacility:N9Hgmsy: 09-13-2020 End: 67-97-8464ggrhhazpxlVC SEAN FAZIOFacility:D2Gwpsa: 09-06-2020 End: 01-24-9869jpqvewebuaNZOEGD MOOREFacility:H7Fwnxi: 07-01-2020 End: 31-47-3706xlalqdxqacKC SEAN FAZIOFacility:S9Omnql: 06-27-2020 End: 39-20-4574iwstmppfwzYL SEAN FAZIOFacility:H1 Procedures DateProcedureProcedure DetailPerforming ClinicianStart: 02-20-2025 End: 35-20-7321Rwaggikukjfwz w/patient 45 minutesAdjustment disorder with mixed anxiety and depressed moodBayley Malicki LPCComment on above:Adjustment disorder with mixed anxiety and depressed mood; Marital problemsStart: 02-06-2025 End: 47-40-9269Kuhtsthnsebtj w/patient 45 minutesMarital problemsBayley Malicki LPCComment on above:Marital problems; Adjustment disorder with mixed anxiety and depressed moodStart: 01-23-2025 End: 15-46-2515Kimbdalgjywln w/patient 45 minutesMarital problemsBayley Malicki LPCComment on above:Marital problems; Adjustment disorder with mixed anxiety and depressed moodStart: 01-22-2025 IGP,APTIMA HPV,AGE GDLNLucrecia MOE Work Phone: Start: 13-39-0457Lcfropxpkly observation [Identifier] in Cervix by Cyto Sri MOE Work Phone: Start: 01-16-2025 End: 72-98-4695Smfnezekgsukf w/patient 45 minutesMarital problemsBayley Malicki LPCComment on above:Marital problems; Adjustment disorder with mixed anxiety and depressed moodStart: 01-11-2025 End: 28-05-8896Uuazvffjyqjyb w/patient 45 minutesAdjustment disorder with mixed anxiety and depressed moodBayley Malicki LPCComment on above:Adjustment disorder with mixed anxiety and depressed mood; Marital problemsStart: 12-21-2024 End: 14-72-7023Ilxqtadpxuesf w/patient 60 minutesAdjustment disorder with mixed anxiety and depressed moodBayley Malicki LPCComment on above:Adjustment disorder with mixed anxiety and depressed mood ; Marital problemsStart: 12-14-2024 End: 84-10-5845Kvugfbtyphdsu w/patient 45 minutesAdjustment disorder with mixed anxiety and depressed moodBayley Malicki LPCComment on above:Adjustment disorder with mixed anxiety and depressed mood ; Marital problemsStart: 11-15-2024 End: 84-67-5281Xrtfiwhmqgvgw w/patient 45 minutesAdjustment disorder with mixed anxiety and depressed moodBayley Malicki LPCComment on above:Adjustment disorder with mixed anxiety and depressed mood ; Marital problemsStart: 11-06-2024 End: 77-87-1451Zdrdoxkxmlovj w/patient 60 minutesAdjustment disorder with mixed anxiety and depressed moodBayley Malicki LPCComment on above:Adjustment disorder with mixed anxiety and depressed mood ; Marital problemsStart: 10-25-2024 End: 01-78-4625Alcmdwoleazza w/patient 45 minutesAdjustment disorder with mixed anxiety and depressed moodBayley Malicki LPCComment on above:Adjustment disorder with mixed anxiety and depressed mood ; Marital problemsStart: 10-19-2024 End: 96-23-0048Czjnozdqqnvif w/patient 45 minutesAdjustment disorder with mixed anxiety and depressed moodBayley Malicki LPCComment on above:Adjustment disorder with mixed anxiety and depressed mood ; Marital problemsStart: 66-07-8850FJO CBC W AUTO DIFF BLDGeneric External Data ProviderStart: 09-13-2024 End: 72-75-4943Yrdtfzqthabeq w/patient 45 minutesAdjustment disorder with mixed anxiety and depressed mood (CMS/HCC)Nam Malicki LPCComment on above: Adjustment disorder with mixed anxiety and depressed mood (CMS/HCC); Marital problemsStart: 09-06-2024 End: 44-71-2089Zvyrnixpddwia w/patient 45 minutesAdjustment disorder with mixed anxiety and depressed mood (CMS/HCC)Nam Malicki LPCComment on above: Adjustment disorder with mixed anxiety and depressed mood (CMS/HCC); Marital problemsStart: 08-07-2024 End: 06-89-6139Npkzhvxuqtsom w/patient 30 minutesAdjustment disorder with mixed anxiety and depressed mood (CMS/HCC)Nam Cuevasi LPCComment on above: Adjustment disorder with mixed anxiety and depressed mood (CMS/HCC); Marital problemsStart: 07-31-2024 End: 18-18-9688Xisqxnskhokjp w/patient 45 minutesAdjustment disorder with mixed anxiety and depressed mood (CMS/HCC)Nam Cuevasi LPCComment on above: Adjustment disorder with mixed anxiety and depressed mood (CMS/HCC); Marital problemsStart: 07-27-2024 End: 07-86-7577Zfhnzhbsoyujg w/patient 45 minutesAdjustment disorder with mixed anxiety and depressed mood (CMS/HCC)Nam Cuevasi LPCComment on above: Adjustment disorder with mixed anxiety and depressed mood (CMS/HCC); Marital problemsStart: 07-17-2024 End: 69-74-4234Kjugedycxyjfb w/patient 45 minutesAdjustment disorder with mixed anxiety and depressed mood (CMS/HCC)Nam Cuevasi LPCComment on above: Adjustment disorder with mixed anxiety and depressed mood (CMS/HCC); Marital problemsStart: 07-10-2024 End: 09-01-0383Nkfxaywerqrvj w/patient 45 minutesAdjustment disorder with mixed anxiety and depressed mood (CMS/HCC)Nam Cuevasi LPCComment on above: Adjustment disorder with mixed anxiety and depressed mood (CMS/HCC) ; Marital problemsStart: 50-53-9935JVSARJ COVID-19/FLUPatricia A Samantha LABORATORY TECHNOLOGY TEACHER Work Phone: Start: 62-82-7771Xuzj-cov-2 detection by dna/Ron Carrillo LABORATORY TECHNOLOGY TEACHER Work Phone: Start: 52-24-8138NHU CBC PNL BLD AUTOGeneric External Data ProviderStart: 90-52-5290JBX CBC W AUTO DIFF BLDGeneric External Data ProviderStart: 86-29-4846FKJDMB COVID-19/FLUChristy A Patel LABORATORY TECHNOLOGY TEACHER Work Phone: Start: 92-99-7526ZZW CBC PNL BLD AUTOGeneric External Data ProviderStart: 30-25-0459YDB CBC W AUTO DIFF BLDGeneric External Data ProviderStart: 63-92-5232XMZ CBC W AUTO DIFF BLDGeneric External Data Provider Start: 48-90-8385IQS CBC W AUTO DIFF BLDGeneric External Data ProviderStart: 33-45-5528Zqenamqfqja observation [Identifier] in Cervix by Cyto stainNam Denisghazala LPCStart: 10-84-0967Tzsievgi of Products of Conception, External ApproachDR SEAN FAZIOStart: 01-66-1049Myoifgiinvca of Hormone into Female Reproductive, Via Natural or Artificial OpeningDR SEAN GARZA Plan of Treatment DateCare ActivityDetailAuthorStart: 97-19-8957Zydkrcdlt for malignant neoplasm of cervixNOMS HealthcareStart: 04-67-5575Nkvxivyhx for malignant neoplasm of cervixPap SmearNOMS HealthcareStart: 99-35-7278FFtK,Tdap and Td Vaccines (3 - Td or Tdap)DTaP,Tdap and Td Vaccines (3 - Td or Tdap)[facility] SystemStart: 11-52-7069Unkcz microalbumin profileDTaP,Tdap,Td Vaccine (3 - Td or Tdap) [facility]: 04-17-2025 End: 04-69-0477Oudrmk Work04/17/2025 3:30 PM EST Social Work [facility] [address] [place] [address] Nam Pickens [facility] HealthStart: 04-16-2025 End: 88-28-0923Hfioxob encounter dwytkxqit99/05/2026 4:00 PM EST Procedure Visit [facility] José TAFOYAN [address] [place] [phone] Sean Garza DO [address] [place] [address] NOMS José OBGYNStart: 03-27-2025 End: 97-41-1857Wwueda Work03/27/2025 4:30 PM EST Social Work [facility] [address] [place] [address] Nma Pickens LPCELSA [facility] HealthStart: 03-13-2025 End: 48-62-5736Onleun Work03/13/2025 4:30 PM EST Social Work [facility] [address] [place] [address] Nam Pickens LPCNOMS [facility] HealthStart: 03-12-2025 End: 36-53-7129Vazinb Work03/12/2025 5:00 PM EST Social Work [facility] [address] [place] [phone] Jenny Smith, [facility] [address] [place] [address] [facility] [facility] HealthStart: 03-06-2025 End: 85-35-0567Xgigaoz encounter tzmuxvlsk94/25/2025 10:30 AM EST Procedure Visit [facility]OM[facility]t [facility] [address] [place], [phone] Sean Garza, DO [address] [place] [address] NOMMt GAOtart: 02-20-2025 End: 73-40-2879Bzildo Work02/20/2025 5:00 PM EST Social Work [facility] [address] [place] [address] Nam Pickens LPCNOMS [facility] HealthStart: 02-19-2025 End: 33-18-1077Nndwmlt encounter nlyjecqox62/10/2025 4:00 PM EST Procedure Visit [facility] [address] [place] [phone] Sean Garza, [address] [place] [address] NOMMt MoreJosé OBGYNStart: 02-06-2025 End: 00-79-8602Fervvbwpoumq consultation with wolaeic3802/06/2025 4:00 PM EDT Telemedicine [facility] [facility] [address] [place] [address] Nam Pickens LPC ArrivedNOMS [facility] Behavioral HealthComment on above:ArrivedStart: 02-01-2025 End: 92-91-8629Yhkqgf Work02/01/2025 4:30 PM EDT Social Work [facility] [address] [place] [address] Nam Pickens LPCNOMS [facility] HealthStart: 01-23-2025 End: 43-57-4414Ufdnba Work01/23/2025 4:30 PM EDT Social Work [facility] [address] [place] [address] Nam Pickens LPCNOMS [facility] HealthStart: 01-22-2025 End: 41-28-2843Qbzbuyo encounter procedureBOMS MoreJosé OBGYNComment on above: ArrivedStart: 01-22-2025 End: 35-94-5190DL Breast - bilateral ScreeningBilateral screening mammogram Imaging Routine Encounter for screening mammogram for malignant neoplasm of breast Expected: 01/22/2025 (Approximate), Expires: 03/24/2026[facility] Work Phone: comment on above:Expected: 01/22/2025 (Approximate), Expires: 03/24/2026Start: 01-16-2025 End: 25-53-3464Pvwpqs WorkNOMS [facility] Behavioral HealthComment on above:Arrived Start: 01-11-2025 End: 85-50-0873Uzbbdbonnolm consultation with patientBOMS [facility] Behavioral HealthComment on above:ArrivedStart: 12-28-2024 End: 26-11-3175Mrknlk-up cvimrulnk48/18/2025 4:00 PM EDT [facility] General Surgery [address] [phone] Nicole Marquis APRN.OPTOMETRIST ASSISTANT [address] [phone] 3 month follow upGeneral SurgeryComment on above:3 month follow upStart: 12-21-2024 End: 33-15-1912Utnijglnyoxu consultation with patientBOMS [facility] Behavioral HealthComment on above:ArrivedStart: 12-14-2024 End: 77-41-2896Wgzhef Work12/14/2024 4:30 PM EDT Social Work [facility] [address] [place] [address] Nam Pickens LPCNO [facility] HealthStart: 90-22-1713BKZKB-19 Vaccine ( season)COVID-19 Vaccine ( season)[facility] SystemStart: 18-12-4867CXMJZ-19 Vaccine ( season)COVID-19 Vaccine ( season)NOMS HealthcareStart: 00-37-0151Jvyslzuzv vaccinationNOMS HealthcareStart: 11-15-2024 End: 70-48-1113Diwaxr WorkNOMS CI BHStart: 11-06-2024 End: 40-42-7091Upoqup WorkNOMS CI BHComment on above:ArrivedStart: 10-25-2024 End: 64-70-0627Yeshmi WorkNOMS CI BHComment on above:ArrivedStart: 10-19-2024 End: 15-91-3877Jxjqlz Work10/19/2024 4:00 PM EDT Social Work [facility] [address] [place] [address] Nam Pickens LPC NOMS CI BHStart: 23-89-3555Hibafjrby vaccinationInfluenza Vaccine (#1)NOMS HealthcareComment on above:Postponed from 12/12/2023 (Supply/Drug Shortage) Start: 10-02-2024 End: 36-55-0859Tvehsx Work10/02/2024 4:30 PM EDT Social Work [facility] [address] [place] [address] Nam Pickens LPC NOMS CI BHStart: 09-13-2024 End: 06-47-2989Gotmfa WorkNOMS CI BHComment on above:ArrivedStart: 09-06-2024 End: 39-82-7559Bolors WorkNOMS CI BHComment on above:ArrivedStart: 08-30-2024 End: 66-82-3114Ptknkw WorkNOMS CI BHComment on above:ArrivedStart: 08-07-2024 End: 54-80-2701Daqvxv WorkNOMS CI BHComment on above:ArrivedStart: 07-31-2024 End: 81-62-4306Fqziuh WorkNOMS CI BHComment on above:ArrivedStart: 07-27-2024 End: 22-04-0900Qxlkpgetvspu consultation with bmbmowb0607/27/2024 3:00 PM EDT Telemedicine [facility] [address] [facility] [address] [place] [address] [phone] Nam Pickens LPCNOMS CI BHStart: 07-17-2024 End: 33-84-4460Zahxca WorkNOMS CI BHComment on above:ArrivedStart: 07-10-2024 End: 96-32-2732Nrybep Work07/10/2024 4:30 PM EDT Social Work [facility] [address] [facility] [address] [place] [address] Nam Pickens LPC ArrivedNOMS CI BHComment on above:ArrivedStart: 06-19-2024 End: 20-07-9979Ntwwli WorkNOMS CI BHComment on above:Marital problemsStart: 06-15-2024 End: 06-15-2025H. pylori antigen, stoolH. pylori antigen, stool Lab Routine Diarrhea, unspecified type Expected: 06/15/2024 (Approximate),Expires: 06/15/2025NOMS HealthcareComment on above:Expected: 06/15/2024 (Approximate), Expires: 06/15/2025Start: 06-15-2024 End: 35-08-9213Birejsdqurv of occult blood in single stool specimenOccult blood x 1, stool Lab Routine Diarrhea, unspecified type Expected: 06/15/2024 (Approximate), Expires: 06/15/2025NOMS HealthcareComment on above:Expected: 06/15/2024 (Approximate), Expires: 06/15/2025Start: 06-15-2024 End: 15-30-8725Uxjbj cultureStool culture Microbiology Routine Diarrhea, unspecified type Expected: 06/15/2024 (Approximate), Expires: 06/15/2025[facility] Work Phone: Comment on above:Expected: 06/15/2024 (Approximate), Expires: 06/15/2025Start: 06-15-2024 End: 20-79-9454Ljdvtlo encounter rpfvzsapb90/06/2025 9:00 AM EST Office Visit [facility] [address] [facility] [place] [address] [phone] Gacria NP [address] [place] [address] [facility] FNR FMComment on above:ArrivedStart: 06-08-2024 End: 06-42-6630Chzwpfs encounter zijtlzowo45/27/2025 11:00 AM EST Office Visit [facility] [address] [place] [facility] [place] [phone] Mick Garcia NP [address] [place] [address] [facility] FNR FMComment on above:ArrivedStart: 06-02-2024 Screening for malignant neoplasm of cervixNOMS HealthcareStart: 2024 Screening for malignant neoplasm of breastNOMS HealthcareStart: 05-10-2024 End: 72-99-4389Ttfzixs encounter pcrdznvli76/29/2025 4:30 PM EST Office Visit [facility] FNR FM [address] [facility] [place] [address] Josefina Carrillo NP [address] [place] [address] ArrivedINTERMOUNTAIN HEALTHCARE FNR FMComment on above:ArrivedStart: 04-27-2024 End: 30-99-6849Yefacihme to same day surgery hpmvfh4904/27/2024 4:00 PM EST [facility] Surgery [address] [phone] Nicole Marquis APRN.OPTOMETRIST ASSISTANT [address] [phone] Medical Weight Management follow w/medsGeneral Surgery Comment on above:Medical Weight Management follow w/medsStart: 04-07-2024 End: 32-37-4702Yhsuhf-up ejzeicshm87/27/2024 10:30 AM EST Visit (SP) Office Hematology/Oncology [address] [address] [place] [address] Titus Taylor MD [address] [place] [address] 3 month follow upHematology/OncologyComment on above:3 month follow upStart: 04-07-2024 End: 62-95-5442Jdjolvs encounter oyfwyruzg84/27/2024 10:15 AM EST Office Visit [facility] [address] [place] [address] 3 month follow upNortStraith Hospital for Special Surgery LaboratoryComment on above:3 month follow upStart: 03-10-2024 End: 89-82-3636Hdjhpe-up encounterHematology/OncologyComment on above:8 week follow up lab with phlebotomyStart: 03-10-2024 End: 71-01-7469Obehaed encounter yefphjpco22/29/2024 8:15 AM EST Office Visit [facility] [address] [place] [address] 8 week follow up lab with [facility]lebotomyNoC[facility]nut [facility] LaboratoryComment on above:8 week follow up lab with phlebotomy Start: 02-17-2024 End: 46-29-2940clkiwwxagv52/07/2024 4:00 PM EST [facility] Hematology/Oncology [address] [place] [address] lab and phlebotomy x 4Hematology/OncologyComment on above:lab and phlebotomy x 4Start: 02-17-2024 End: 82-60-5085Gnwzdmh encounter dmsaqqebe93/07/2024 3:45 PM EST Office Visit [facility] [address] [place] [address] lab and phlebotomy x 4[facility]Stra[facility] LaboratoryComment on above:lab and phlebotomy x 4Start: 02-17-2024 End: 22-92-5101Rwjkygxhbwtku metabolic 2000 panel - Serum or PlasmaComprehensive metabolic panel Lab Routine Low serum calcium Expected: 02/17/2024 (Approximate), Expires: 02/16/2025[facility] Work Phone: Comment on above:Expected: 02/17/2024 (Approximate), Expires: 02/16/2025Start: 02-15-2024 End: 31-19-5995Clpldnppsugay metabolic 2000 panel - Serum or PlasmaComprehensive metabolic panel Lab Routine Hypokalemia Expected: 02/15/2024 (Approximate), Expires: 02/14/2025[facility] Work Phone: Comment on above:Expected: 02/15/2024 (Approximate), Expires: 02/14/2025Start: 02-15-2024 End: 48-35-8063Ypkntda encounter ekphxsndo52/05/2024 9:30 AM EST Office Visit [facility] [address] [place] [address] RfivgzbmvsMick Garcia NP [address] [place] [address] [address] FNR FMComment on above:ArrivedStart: 02-03-2024 End: 23-05-1773dyfoptxmrq65/24/2024 4:00 PM EDT [facility] Hematology/Oncology [address] [place] [address] [place] [address] lab and phlebotomy x 4Hematology/OncologyComment on above:lab and phlebotomy x 4Start: 02-03-2024 End: 96-97-0387Eyvswlj encounter procedureNortStraith Hospital for Special Surgery LaboratoryComment on above:lab and phlebotomy x 4NO ORDERSStart: 02-03-2024 End: 54-20-5471QCJ W Auto Differential panel - BloodCOMPLETE BLOOD COUNT AND DIFFERENTIAL Lab Routine Hereditary hemochromatosis (HCC) Expected: 02/03/2024, Expires: 05/04/2024[facility] Work Phone: Comment on above:Expected: 02/03/2024, Expires: 05/04/2024Start: 02-02-2024 End: 70-33-2925Hjpgzkhiu to same day surgery aqpytz8402/02/2024 3:45 PM EDT [facility] Surgery [address] [place] [address] Leigha Lake, RD [address] [place] [address] weight management [facility] by [facility] SurgeryComment on above:weight management recommended by Teresatart: 01-26-2024 End: 96-09-2455Pajdbazkk to same day surgery zbirdt6201/26/2024 4:30 PM EDT [facility] Surgery [address] [place] [address] Nicole Marquis APRN.OPTOMETRIST ASSISTANT [address] [place] [address] 3mth f/uGeneral SurgeryComment on above:3mth f/uStart: 01-20-2024 End: 74-00-4268feogsctyqd46/10/2024 4:00 PM EDT [facility] Hematology/Oncology [address] [place] [address] lab and phlebotomy x 4Hematology/OncologyComment on above:lab and phlebotomy x 4Start: 01-20-2024 End: 01-50-2293Tyviofw encounter mnealabqy91/10/2024 3:45 PM EDT Office Visit [facility] [address] [place] [address] lab and phlebotomy x 4[facility] LaboratoryComment on above:lab and phlebotomy x 4Start: 12-30-2023 End: 56-03-2553Sldzqcf encounter cjlaumekr31/19/2024 9:15 AM EDT Office Visit [facility] [address] [place] [address] labNortStraith Hospital for Special Surgery LaboratoryComment on above:labStart: 12-29-2023 End: 03-59-3914YDN W Auto Differential panel - BloodCOMPLETE BLOOD COUNT AND DIFFERENTIAL Lab Routine High total iron binding capacity Expected: 12/29/2023 (Approximate), Expires: 03/29/2024[facility] Work Phone: comment on above:Expected: 12/29/2023 (Approximate), Expires: 03/29/2024Start: 12-29-2023 End: 33-92-0151Fenilwbqkrdym metabolic 2000 panel - Serum or PlasmaCOMPREHENSIVE METABOLIC PANEL Lab Routine High total iron binding capacity Expected: 12/29/2023 (Approximate), Expires: 03/29/2024[facility] ClinicComment on above: Expected: 12/29/2023 (Approximate), Expires: 03/29/2024Start: 12-29-2023 End: 19-71-7979Uyevlopx [Mass/volume] in Serum or PlasmaFERRITIN Lab Routine High total iron binding capacity Expected: 12/29/2023 (Approximate), Expires: 05/30/2023[facility] ClinicComment on above:Expected: 12/29/2023 (Approximate), Expires: 03/29/2024Start: 12-29-2023 End: 15-09-6578BMH gene targeted mutation analysis in Blood or Tissue by Molecular genetics methodHFE (HEMOCHROMATOSIS) Lab Routine High total iron binding capacity Expected: 12/29/2023 (Approximate), Expires: 03/29/2024 [place]Comment on above:Expected: 12/29/2023 (Approximate), Expires: 03/29/2024Start: 12-29-2023 End: 75-37-3907Vorf and Iron binding capacity panel - Serum or PlasmaIRON AND TIBC Lab Routine High total iron binding capacity Expected: 12/29/2023 (Approximate), Expires: 03/29/2024[facility] ClinicComment on above:Expected: 12/29/2023 (Approximate), Expires: 03/29/2024Start: 32-53-7431Slkol-19 Vaccine ( season)Covid-19 Vaccine ()[facility]: 18-91-5886Djolq-19 Vaccine ( season)Covid-19 Vaccine ( season)[facility]: 37-64-5642Hqscjyyfa vaccinationCenterville Start: 10-06-2023 End: 032876-znssujetdutqgp D3 [Mass/volume] in Serum or PlasmaVITAMIN D 25 HYDROXY Lab Routine S/P laparoscopic sleeve gastrectomy Expected: 10/06/2023, Expires:01/05/2024[facility] ClinicComment on above:Expected: 10/06/2023, Expires: 01/05/2024Start: 10-06-2023 End: 81-69-8175JRW W Auto Differential panel - BloodCOMPLETE BLOOD COUNT AND DIFFERENTIAL Lab Routine S/P laparoscopic sleeve gastrectomy Expected: 09/11, Expires: 01/05/2024[facility] ClinicComment on above:Expected: 10/06/2023, Expires: 01/05/2024Start: 10-06-2023 End: 99-05-0687Tdlpiprat (Vitamin B12) [Mass/volume] in Serum or PlasmaVITAMIN B12 Lab Routine S/P laparoscopic sleeve gastrectomy Expected: 10/06/2023, Expires: 01/05/2024[facility] ClinicComment on above:Expected: 10/06/2023, Expires: 01/05/2024Start: 10-06-2023 End: 58-32-8593Ecnkqvdwqldob metabolic 2000 panel - Serum or PlasmaCOMPREHENSIVE METABOLIC PANEL Lab Routine S/P laparoscopic sleeve gastrectomy Expected: 10/06/2023,Expires: 01/05/2024[facility] ClinicComment on above:Expected: 10/06/2023, Expires: 01/05/2024Start: 10-06-2023 End: 42-59-7283Dfbkcvku [Mass/volume] in Serum or PlasmaFERRITIN Lab Routine S/P laparoscopic sleeve gastrectomy Expected: 10/06/2023, Expires: 01/05/2024 [facility]Comment on above:Expected: 10/06/2023, Expires: 01/05/2024Start: 10-06-2023 End: 46-52-9208Oeffps [Mass/volume] in Serum or PlasmaFOLATE, SERUM Lab Routine S/P laparoscopic sleeve gastrectomy Expected: 10/06/2023, Expires: 01/05/2024 [facility]Comment on above:Expected: 10/06/2023, Expires: 01/05/2024Start: 10-06-2023 End: 32-97-7785Mhebptjqnx A1c in BloodHEMOGLOBIN A1C Lab Routine S/P laparoscopic sleeve gastrectomy Expected: 10/06/2023, Expires: 01/05/2024 [facility]ervilleComment on above:Expected: 10/06/2023, Expires: 01/05/2024Start: 10-06-2023 End: 22-32-4390Xpkbxmw [Units/volume] in Serum or PlasmaINSULIN ASSAY BLOOD Lab Routine S/P laparoscopic sleeve gastrectomy Expected: 10/06/2023, Expires: 0 01/05/2024[facility] ClinicComment on above:Expected: 10/06/2023, Expires: 01/05/2024Start: 10-06-2023 End: 22-15-8719Vheb and Iron binding capacity panel - Serum or PlasmaIRON AND TIBC Lab Routine S/P laparoscopic sleeve gastrectomy Expected: 10/06/2023, Expires: 01/05/2024[facility] ClinicComment on above:Expected: 10/06/2023, Expires: 01/05/2024Start: 10-06-2023 End: 13-62-6528Ceagl 1996 panel - Serum or PlasmaLIPID PANEL BASIC Lab Routine S/P laparoscopic sleeve gastrectomy Expected: 10/06/2023, Expires: 01/05/2024 [facility] Work Phone: comment on above:Expected: 10/06/2023, Expires: 01/05/2024Start: 10-06-2023 End: [id number].intact [Mass/volume] in Serum or PlasmaPTH INTACT Lab Routine S/P laparoscopic sleeve gastrectomy Expected: 10/06/2023, Expires: 01/05/2024[facility]:Expected: 10/06/2023, Expires: 01/05/2024Start: 10-06-2023 End: [id number] [Units/volume] in Serum or PlasmaTHYROID STIMULATING HORMONE Lab Routine S/P laparoscopic sleeve gastrectomy History of hypothyroidis m Expected: 10/06/2023, Expires: 01/05/2024leveland ClinicComment on above: Expected: 10/06/2023, Expires: 01/05/2024Start: 10-06-2023 End: 63-68-1885NBVSPAX B1 (THIAMINE), WHOLE BLOODVITAMIN B1 (THIAMINE), WHOLE BLOOD Lab Routine S/P laparoscopic sleeve gastrectomy Expected: 10/06/2023, Expires: 01/05/2024[facility] ClinicComment on above:Expected: 10/06/2023, Expires: 01/05/2024Start: 59-36-9592Prrgkxxpg for malignant neoplasm of cervix [facility] HealthcareStart: 05-19-2023 End: 61-60-4377Rcmkplb encounter scelrjmns36/07/2024 8:30 AM EST Office Visit [facility] [address] [place] [address] Josefina Carrillo, GREGOR [address] [place] [address] Neville MATHEW FMComment on above:ArrivedStart: 58-63-3767Zyquepsiyp Health ScreeningBehavioral Health ScreeningParkwood Hospitaltart: 45-22-8932Ytncqxsafm AssessmentDepression AssessmentParkwood Hospitaltart: 08-77-0505Oroxo-19 Vaccine ()Covid-19 Vaccine ()[facility]: 65-15-1004Wioiziirq vaccinationParkwood Hospitaltart: 10-28-2022 End: 167026-jgttfnfvhypnpi D3 [Mass/volume] in Serum or PlasmaVITAMIN D 25 HYDROXY Lab Routine Class 1 obesity with body mass index (BMI) of 32.0 to 32.9 in adult, unspecified obesity type, unspecified whether serious comorbidity present S/P laparoscopic sleevegastrectomy Expected: 10/28/2022, Expires: 12/28/2022[facility] Work Phone: comment on above:Expected: 10/28/2022, Expires: 12/28/2022Start: 10-28-2022 End: 66-25-8980DVI W Auto Differential panel - BloodCBC + DIFF Lab Routine Class 1 obesity with body mass index (BMI) of 32.0 to 32.9 in adult, unspecified obesity type, unspecified whether serious comorbidity present S/P laparoscopic sleeve gastrectomy Expected: 10/28/2022, Expires: 12/28/2022[facility] Work Phone: comment on above:Expected: 10/28/2022, Expires: 12/28/2022Start: 10-28-2022 End: 47-22-5822Zvpwncsar (Vitamin B12) [Mass/volume] in Serum or PlasmaVITAMIN B12 BLOOD Lab Routine Class 1 obesity with body mass index (BMI) of 32.0 to 32.9 in adult, unspecified obesity type, unspecified whether serious comorbidity present S/P laparoscopic sleeve gastrectomy Expected: 10/28/2022, Expires: 12/28/2022[facility] Work Phone: comment on above:Expected: 10/28/2022, Expires: 12/28/2022Start: 10-28-2022 End: 91-35-6641Abyuurmuvsrto metabolic 2000 panel - Serum or PlasmaCOMP METABOLIC PANEL Lab Routine Class 1 obesity with body mass index (BMI) of 32.0 to 32.9 in adult, unspecified obesity type, unspecified whether serious comorbidity present S/P laparoscopic sleevegastrectomy Expected: 10/28/2022, Expires: 12/28/2022[facility] Work Phone: comment on above:Expected: 10/28/2022, Expires: 12/28/2022Start: 10-28-2022 End: 23-74-3898Cczscvmu [Mass/volume] in Serum or PlasmaFERRITIN BLD Lab Routine Class 1 obesity with body mass index (BMI) of 32.0 to 32.9 in adult, unspec ified obesity type, unspecified whether serious comorbidity present S/P laparoscopic sleeve gastrectomy Expected: 10/28/2022, Expires: 12/28/2022 [facility] Work Phone: comment on above:Expected: 10/28/2022, Expires: 12/28/2022Start: 10-28-2022 End: 17-02-3767Mblgdc [Mass/volume] in Serum or PlasmaFOLATE SERUM Lab Routine Class 1 obesity with body mass index (BMI) of 32.0 to 32.9 in adult, unspecified obesity type, unspecified whether serious comorbidity present S/P laparoscopic sleeve gastrectomy Expected: 10/28/2022, Expires: 12/28/2022[facility] Work Phone: comment on above:Expected: 10/28/2022, Expires: 12/28/2022Start: 10-28-2022 End: 63-14-1746Eemsomnvmk A1c in BloodHGB A1C Lab Routine Class 1 obesity with body mass index (BMI) of 32.0 to 32.9 in adult, unspecified obesity type, unspecified whether serious comorbidity present S/P laparoscopic sleeve gastrectomy Expected: 10/28/2022, Expires: 12/28/2022[facility] Work Phone: comment on above:Expected: 10/28/2022, Expires: 12/28/2022Start: 10-28-2022 End: 17-13-2290Kwscvbx [Units/volume] in Serum or PlasmaINSULIN ASSAY BLOOD Lab Routine Class 1 obesity with body mass index (BMI) of 32.0 to 32.9 in adult, unspecified obesity type, unspecified whether serious comorbidity present S/P laparoscopic sleeve gastrectomy Expected: 10/28/2022, Expires: 12/28/2022 [facility] Work Phone: comment on above:Expected: 10/28/2022, Expires: 12/28/2022Start: 10-28-2022 End: 31-39-7801Eeaz and Iron binding capacity panel - Serum or PlasmaIRON + TIBC Lab Routine Class 1 obesity with body mass index (BMI) of 32.0 to 32.9 in adult, unspecified obesity type, unspecified whether serious comorbidity present S/P laparoscopic sleeve gastrectomy Expected: 10/28/2022, Expires: 12/28/2022 [facility] Work Phone: comment on above:Expected: 10/28/2022, Expires: 12/28/2022Start: 10-28-2022 End: 03-39-0467Qtdzw 1996 panel - Serum or PlasmaLIPID PANEL BASIC Lab Routine Class 1 obesity with body mass index (BMI) of 32.0 to 32.9 in adult, unspecified obesity type, unspecified whether serious comorbidity present S/P laparoscopic sleeve gastrectomy Expected: 10/28/2022, Expires: 12/28/2022[facility] Work Phone: comment on above:Expected: 10/28/2022, Expires: 12/28/2022Start: 10-28-2022 End: 95-77-8428Ivptxmuwuq.intact [Mass/volume] in Serum or PlasmaPTH INTACT BLD Lab Routine Class 1 obesity with body mass index (BMI) of 32.0 to 32.9 in adult, unspecified obesity type, unspecified whether serious comorbidity present S/P laparoscopic sleeve gastrectomy Expected: 10/28/2022, Expires: 12/28/2022 [facility] Work Phone: comdcez on above:Expected: 10/28/2022, Expires: 12/28/2022Start: 10-28-2022 End: 73-11-5139Qbpfedezbzm [Units/volume] in Serum or PlasmaTSH BLD Lab Routine Class 1 obesity with body mass index (BMI) of 32.0 to 32.9 in adult, unspecified obesity type, unspecified whether serious comorbidity present S/P laparoscopic sleeve gastrectomy Expected: 10/28/2022, Expires: 12/28/2022[facility] Work Phone: comment on above:Expected: 10/28/2022, Expires: 12/28/2022Start: 10-28-2022 End: 26-45-7227WUMCQTC B1 (THIAMINE), WHOLE BLOODVITAMIN B1 (THIAMINE), WHOLE BLOOD Lab Routine Class 1 obesity with body mass index (BMI) of 32.0 to 32.9 in adult, unspecified obesity type, unspecified whether serious comorbidity present S/P laparoscopic sleeve gastrectomy Expected: 10/28/2022, Expires: 12/28/2022 [facility] Work Phone: comment on above:Expected: 10/28/2022, Expires: 12/28/2022Start: 80-81-4464FDQWZPTKGH ASSESSMENTDEPRESSION ASSESSMENTParkwood Hospitaltart: 00-23-5977WIMTY-19 VACCINE (3 - Booster for Leidy series)COVID-19 VACCINE (3 - Booster for Leidy series)[facility]: 07-26-2016 DTaP/Tdap/Td Vaccines (3 - Td or Tdap)DTaP/Tdap/Td Vaccines (3 - Td or Tdap)[facility]: 16-95-5047IXW TESTINGHPV TESTINGParkwood Hospitaltart: 36-11-2607Dezkxxnhb for malignant neoplasm of cervixHPV TestingCenterville Start: 59-07-3520RXH Vaccine (1 - 3-dose SCDM series)HPV Vaccine (1 - 3-dose SCDM series)[facility]: 72-67-4906NPM Vaccines (1 - 3-dose SCDM series)HPV Vaccines (1 - 3-dose SCDM series)[facility]: 45-60-8697PGV TESTINGPAP TESTINGParkwood Hospitaltart: 22-62-5716Dgouztcuk for malignant neoplasm of cervixParkwood Hospitaltart: 97-54-7993Rmjxf microalbumin profile [facility]: 31-62-2139Wcuoyaxhi B Vaccine (3 of 3 - 3-dose series) Hepatitis B Vaccine (3 of 3 - 3-dose series)[facility]: 02-19-2003 Hepatitis B Vaccines (3 of 3 - 3-dose series)Hepatitis B Vaccines (3 of 3 - 3- dose series)[facility]: 67-71-3646Orvbf BMI ScreeningAdult BMI ScreeningFormerly [facility] Centertart: 81-59-3081Igvhep PCP Team Chronic Disease VisitAnnual PCP Team Chronic Disease VisitParkwood Hospitaltart: 2002 Depression ScreeningDepression ScreeningParkwood Hospitaltart: 2002 HEPATITIS C SCREENINGHEPATITIS C SCREENINGParkwood Hospitaltart: 2002 Hepatitis C screeningHepatitis C ScreeningParkwood Hospitaltart: 35-87-5435CXN SCREENINGHIV SCREENINGParkwood Hospitaltart: 54-68-6417ZLJ screeningHIV ScreeningParkwood Hospitaltart: 73-63-8830Qvzslmv of varicella vaccination Varicella Vaccines (1 of 2 - 13+ 2-dose series)[facility]Start: 1996 Depression ScreeningDepression ScreeningFormerly [facility] Centertart: 1996 Tobacco ScreeningTobacco ScreeningFormerly [facility] Centertart: 34-66-5854ZEY Vaccines (1 of 1 - Standard series)MMR Vaccines (1 of 1 - Standard series)[facility] HospitalStart: 39-25-0375IFXHGOJDX B (1 of 3 - 3-dose series)HEPATITIS B (1 of 3 - 3-dose series)[facility]: 39-12-0317Kzfgjanks B Vaccine (1 of 3 - 3-dose series)Hepatitis B Vaccine (1 of 3 - 3-dose series)[place] End: 23-61-1721YUI panel - Blood by Automated countCOMPLETE BLOOD COUNT Lab Routine Hereditary hemochromatosis (HCC) Every other week for 2 Occurrences starting 02/02/2024 until 02/01/2025[facility] Work Phone: comment on above:Every other week for 2 Occurrences starting 02/02/2024 until 02/01/2025THIN PREP TIS PAP AND HR HPV DNATHIN PREP TIS PAP AND HR HPV DNA Pathology and Cytology Routine Well woman exam with routine gynecological exam Ordered: 01/22/2025NONE HealthcareComment on above: Ordered: 01/22/2025[facility] Immunizations Immunization DateImmunizationNotesCare ZzabgcdxZpjjfmvj80-42-6805Puijmprynamx, In Clinic,; Translations: [Drug or medicament (substance)]Ppep [facility] Work Phone: [phone]dp, injectable, madin alejandrina canine kidney, preservative freePpep [facility]10-10-2022influenza, injectable, quadrivalent, preservative freeKristin Louden GRAINER MACHINE.[facility] Work Phone: [phone] [facility] Work Phone: [phone] virus vaccine, unspecified formulationKristin Louden GRAINER MACHINE.[facility] Work Phone: YLancaster Municipal HospitalOcldbn90-47-3214yijbacuns, injectable, quadrivalent, preservative freeKristin Louden GRAINER MACHINE.[facility] Work Phone: [facility] Work Phone: [phone], injectable, quadrivalent, contains preservativeKristin Louden GRAINER MACHINE.[facility] Work Phone: [facility] Work Phone: [phone], injectable, quadrivalent, preservative freeKristin Louden GRAINER MACHINE.[facility] Work Phone: RLanc[facility] HospitalSdapdl66-39-8138tliuspjzm virus vaccine, unspecified formulationKristin Louden GRAINER MACHINE.[facility] Work Phone: ALancaster [facility] HospitalZdhhtc05-84-6887dqyzlap toxoid, reduced diphtheria toxoid, and acellular pertussis vaccine, adsorbedKristin Louden GRAINER MACHINE.OPTOMETRIST ASSISTANT Work Phone: [facility] Work Phone: [phone], injectable, quadrivalent, preservative freeKristin Louden GRAINER MACHINE.OPTOMETRIST ASSISTANT Work Phone: [facility] Work Phone: [phone]xvljl, seasonal, injectable, preservative freeKristin Louden GRAINER MACHINE.OPTOMETRIST ASSISTANT Work Phone: [facility] Work Phone: [phone], seasonal, injectableKristin Louden GRAINER MACHINE.OPTOMETRIST ASSISTANT Work Phone: [facility] Work Phone: [phone], seasonal, injectable, preservative freeSarah Denyspfer LABORATORY TECHNOLOGY TEACHER Work Phone: [facility] HospitalFuekrkvlio50-27-4783dkqswocjc virus vaccine, whole virusKristin Louden GRAINER MACHINE.OPTOMETRIST ASSISTANT Work Phone: [facility] Work Phone: [phone](adult) unspecified formulationKristin Louden GRAINER MACHINE.OPTOMETRIST ASSISTANT Work Phone: [facility] Work Phone: [phone] B vaccine, pediatric or pediatric/adolescent dosageKristin Louden GRAINER MACHINE.OPTOMETRIST ASSISTANT Work Phone: [facility] Work Phone: [phone]txdpopdlu polysaccharide vaccine (MPSV4) Nicole Louden GRAINER MACHINE.OPTOMETRIST ASSISTANT Work Phone: [facility] Work Phone: [phone] B vaccine, pediatric or pediatric/adolescent dosageKristin Louden GRAINER MACHINE.OPTOMETRIST ASSISTANT Work Phone: [facility] Work Phone: Payers DatePayer CategoryPayerPolicy [id number] Cross Blue [id number]. Private Health Insurance1.2.840.037630.1.13.693.2.7.9.287772.517400.315 74-01-7129Toguilu1.2.840.472183.1.13.159.2.7.3.014361.06270-46-8784DvgvAshtabula [facility] Managed Care - PPOANTHEM 1.2.840.955941.1.13.424.2.7.9.201783.505.95549-34-2848Gipvoytaat Managed Care - PPOMEDICAL MUTUAL .2.840.840545.1.13.424.2.7.9.357839.[id number] 840.1.480790.3.579.2.22407-69-0713Ohrwian4082314 2.16.840.1.868458.3.579.2.36914-20-4205Oxkbqlk9983987 2.16.840.1.778611.3.579.2.93456-68-1078Sxrsxtr4988956 2.16.840.1.388063.3.579.2.21151-75-6805Cgjsyau9984156 2.16840.1.965858.3.579.2.20888-14-9838Ucrgciv1077622 2.16840.1.306087.3.579.2.27545-86-1439Kvtqwbn6613960 2.840.1.211755.3.579.2.91031-53-1226Zivwdvm6517211 2.840.1.176238.3.579.2.77302-85-5761Hdkwzzq6976849 2.840.1.834113.3.579.2.61438-90-1327Pptjnzo3022398 2.840.1.996070.3.579.2.33768-57-2980Giortzp0054271 2.840.1.008628.3.579.2.31048-08-2441Zfukdev6675123 2.840.1.204833.3.579.2.10346-59-8513Wcexyxo5531070 2.840.1.236834.3.579.2.04824-76-7380Loauyxs5549755 2.840.1.548907.3.579.2.65544-56-9089Ytfqzyt5406745 2.16840.1.772627.3.579.2.07794-43-4408Dyondxb1501232 2.840.1.675970.3.579.2.16209-63-5864Aqcmhgm18521227 2.16.840.1.356153.3.579.2.03869-77-2634Xnaejjm90485665 2.16.840.1.752440.3.579.2.19628-42-4732Heawnrj24087089 2.16840.1.179256.3.579.2.25259-78-0810Ihemwia18724940 2.16840.1.619680.3.579.2.32127-27-5775Ekgmvwa096957228 2.16840.1.361663.3.579.2.298290-86-6322Octzxru20950854 2.840.1.015884.3.579.2.648118-30-5246Ykwtoqm43011234 2.840.1.595329.3.579.2.444776-25-0759Liulzpk82759009 2.840.1.957896.3.579.2.244169-11-8951Vojquxr70900982 2.840.1.618808.3.579.2.974502-93-5592Wxuyebg97022514 2.840.1.705470.3.579.2.664113-79-5573Aabqvft19862613 2.840.1.465264.3.579.2.522023-10-7895Viekuow35452080 2.840.1.560522.3.579.2.969319-26-2087Smzyjxb89306684 2.840.1.974880.3.579.2.461752-73-4595Lsrgzcb51085295 2.840.1.840862.3.579.2.342974-75-3159Yazcrxs31100968 2.840.1.477998.3.579.2.478301-37-2386Wtaklvm08328095 2.16.840.1.538133.3.579.2.193590-75-3622Zpnkodx31785100 2.16.840.1.056263.3.579.2.619390-86-7583Ygeoppf23959927 2.16.840.1.612559.3.579.2.578247-25-5500Kbsrjsq4105244 2.16840.1.427848.3.579.2.517357-62-4925Mpmhops8020144 2.840.1.766256.3.579.2.608799-77-2091Wvvawdw3420974 2.840.1.233837.3.579.2.709200-58-4895Fyrjuds9461517 2.840.1.909268.3.579.2.059491-31-0381Uhrrynu9676154 2.840.1.056563.3.579.2.260431-00-0007Ypgdksk3698262 2.840.1.664585.3.579.2.083174-17-4812Eiywmgs2996928 2.16840.1.401492.3.579.2.688007-46-7932Gwratdn4137357 2.840.1.732369.3.579.2.844359-43-0487Lpydian4891194 2.16840.1.657465.3.579.2.666935-92-7747Cnyyyet2073710 2.840.1.539788.3.579.2.065898-33-7410Zlzxctt0258368 2.16840.1.335536.3.579.2.699979-15-5529Cflcozt9769369 2.16840.1.235567.3.579.2.286826-06-2952MselubvY1746812776-95-4603Zdnvsyy UNO12608544475-20-1626VfegbvmSEL46678645884 Social History DateTypeDetailFacilnationwide children's hospitalStart: 11-20-2016 End: 09-51-6480Ibklqjs smoking status NHISEx-smokerParkwood Hospitaltart: 04-12-2000 End: 93-35-7328Bolqvgk of tobacco useCurrent smokerParkwood Hospitaltart: 04-12-2000 End: 76-31-5166Nqwcfrl of tobacco useCigarette SmokerParkwood Hospitaltart: 11-20-2016 End: 96-32-2669Poutqfdzer smoked current (pack per day) - Bmyockvm7NAHSSelect Specialty HospitalStart: 11-20-2016 End: 01-21-0375Icvozpa use and exposureSmokeless tobacco non-userParkwood Hospitaltart: 10-28-2022 End: 27-61-8554Cefnryl intakeCurrent non-drinker of alcohol (finding)[facility]: 10-28-2022 End: 04-50-2985Rvpumja use panelSelect Specialty HospitalStart: 05-05-2016 End: 59-63-8993Ammtpvwg Score (1-100), lower number is lower emmu52VjnfelsgxParkwood Hospitaltart: 28-80-6079Aps Assigned At BirthNot on fileParkwood Hospitaltart: 03-31-2023 End: 02-93-2430Bnathgm intakeEx-drinker (finding)[facility] HealthcareWithin the last year, have you been afraid of your partner or ex-partner?NoNOMS HealthcareAre you now , , , , never or living with a partner?MarriedNOMS HealthcareHow often to you have a drink containing alcohol? NeverNOMS HealthcareDo you feel stress - tense, restless, nervous, or anxious, or unable to sleep at night because yourmind is troubled all the time - these days [OSQ]Not at allNOMS Healthcare(I/We) worried whether (my/our) food would run out before (I/we) got money to buy more.Never trueINTERMOUNTAIN HEALTHCARE HealthcareStart: 15-73-5641Mhtwieo CommentCaffeine intake: 2 cups per day coffee, teaNONE HealthcareStart: 55-47-6737Sjujctc CommentCaffeine intake: 2-3 cups per day coffee, teaINTERMOUNTAIN HEALTHCARE HealthcareStart: 21-23-9353Zwlgnpu CommentCaffeine intake: 4-5 coffee dailyNONE HealthcareTobacco smoking status NHISTobacco smoking consumption unknownFormerly [facility] Centertart: 04-69-3046FlaWxiqxi (finding) [facility] Functional Status DokeCmjwqrtsheTxbknmBednfurj15-98-4242Umx you deaf, or do you have serious difficulty hearingNo 12/18/2016 1:49 PM EDT Elayne Page APRN.SULAIMAN [facility] Work Phone: [phone] you blind, or do you have serious difficulty seeing, even when wearing glassesNo 12/18/2016 1:49 PM EDT Elayne Page APRN.SULAIMAN [facility]09-08-2017Do you have serious difficulty walking or climbing stairsNo 12/18/2016 1:49 PM EDT Elayne Page APRN.[facility]09-08-2017Do you have difficulty dressing or bathingNo 12/18/2016 1:49 PM EDT Elayne Page, JUICE.[facility]09-08-2017 Because of a physical, mental, or emotional condition, do you have difficulty doing errands alone such as visiting a physician's office or shoppingNo 12/18/2016 1:49 PM EDT Elayne Page, JUICE.[facility] Mental Status LkcsOeoaofxjzvTglerbClwovygp99-71-4476Vewpzjl of a physical, mental, or emotional condition, do you have serious difficulty concentrating, remembering, or making decisionsNo 12/18/2016 1:49 PM EDT Elayne Page APRN.SULAIMAN No [place] Clinical Notes 06-27-2020 to 01-22-2025 Note Date & AjjjOqxgNroyuzgf08-77-2275 History of Present illness Narrative* Tamera Barnes MA - 01/22/2025 4:00 PM EDT Reason for Appointment: Patient ID: Allan Burr is a 39 y.o. female who [...] nursing note reviewed. Exam conducted with a supervisor baking present. Vitals: Estimated body mass index is 25.22 kg/m as calculated from the following: Height as [...] Mild obstructive sleep apnea 01/13/2022 Morbid obesity (CMS-HCC) 01/12/2022 Last Assessment & Plan: The patient [...] Onset Hepatitis Mother Heart disease Father Live Lyubov Hypertension Father Live Lyubov Diabetes Maternal Grandmother Lindsey lyubov Hypertension Maternal Grandmother Lindsey lyubov Cancer Maternal Grandmother Lindsey lyubov Kidney disease Maternal Grandmother Lindsey lyubov Diabetes Maternal Grandfather Bernardo enrico Hypertension Maternal Grandfather Bernardo enrico Cancer Maternal Grandfather Bernardo enrico Diabetes Paternal Grandmother Lindsey Lyubov Hypertension Paternal Grandmother Lindsey Lyubov Diabetes Paternal Grandfather Hypertension Paternal Grandfather [4] Past Surgical History: Procedure Laterality Date CHOLECYSTECTOMY 2012 GALL BLADDER 06/2013 SLEEVE GASTROPLASTY 12/17/2016 documented in this encounterSelect Specialty HospitalNqcpilkhtl68-18-3004 NoteHNO ID: [id number] Author: NICOLE MARQUIS APRN.OPTOMETRIST ASSISTANT Service: ? Author Type: Nurse Practitioner Type: Progress Notes Filed: 12/28/2024 16:24 Note Text: BMI Obesity Medicine PostOp Follow Up Visit [facility] Visit December 28, 2024 Recording using ambient Generaytor software for draft documentation of the visit was discussed with the patient/authorized medical collections representative; all questions welcomed and answered. Patient/authorized medical collections representative agreed to proceed I have communicated my name and active licensure. The patient's identity and physical location were verified at the time of this visit. Either the patient or their legal medical collections representative has been informed of the risks [...] ulcers, Compliant w/ bariatric vitamins. REFERRALS: BMI forensic analyst - reminded to schedule LABS: Today: NA [...] Allan Burr's current weight: 163 lbs. - lAlan previously lost weight with Zepbound, reaching 154 [...] for migraines Had kidney stone while . Wego (more content not included)...[facility]09-11-2025 Telephone encounter Note* Telephone Encounter - Cinda Cook LPN - 12/21/2024 10:28 AM EDT [facility] 10/02/24 NOV 12/28/24 Refill request for Zofran Refill forwarded to Nicole Marquis APRN for approval. [place]09-11-2025 Miscellaneous Notes* Telephone Encounter - Cinda Cook LPN - 12/21/2024 10:28 AM EDT [facility] 10/02/24 NOV 12/28/24 Refill request for Zofran Refill forwarded to Nicole Marquis APRN for approval. documented in this encounterCenterville07-16-2025 Instructions* Patient Instructions* Nicole Marquis APRN.SULAIMAN - 10/25/2024 4:18 PM EDT - Continue taking phentermine exactly as you ve been doing: tablet at 4:30 AM and tablet at 10 AM daily. You may shift the timing later if you re not hungry early. Fill at [facility] and pay out of pocket if insurance won t cover. - We sent a refill request for your 12.5 mg Zepbound dose to [facility] so you ll have one last shot before your insurance stops covering it on October 10. - After Zepbound coverage ends, transition to Wegovy: start with 1 mg weekly for one month, then increase to 1.7 mg weekly (and potentially up to 2.4 mg later). We sent that prescription to [facility]. - Take Zofran as needed to prevent [...] our office for assistance. documented in this encounterCenterville06-23-2025 NoteHNO ID: [id number] Author: NICOLE MARQUIS APRN.SULAIMAN Service: ? Author Type: Nurse Practitioner Type: Progress Notes Filed: 10/25/2024 16:25 Note Text: BMI Obesity Medicine PostOp Follow Up Visit [facility] October 25, 2024 Recording using Friendly Wager App software for draft documentation of the visit was discussed with the patient/authorized medical collections representative; all questions welcomed and answered. Patient/authorized medical collections representative agreed to proceed I have communicated my name and active licensure. The patient's identity and physical location were verified at the time of this visit. Either the patient or their legal medical collections representative has been informed of the risks [...] ulcers, Compliant w/ bariatric vitamins. REFERRALS: BMI forensic analyst - reminded to schedule LABS: Today: NA [...] not cover phentermine, but it is affordable rvt-ju-bdehyd. - Allan has a box of Wegovy [...] visit. AOM Hx: Was going to a [email or web address] spa and getting semaglutide injections, but it [...] 1 TABLET B (more content not included)... [facility]06-23-2025 History of Present illness Narrative* Nicole Marquis APRN.OPTOMETRIST ASSISTANT - 10/02/2024 11:44 AM EDT Images from the original note were not included. BMI Obesity Medicine PostOp Follow Up Visit [facility] Visit October 25, 2024 Recording using ambient Generaytor software for draft documentation of the visit was discussed with the patient/authorized medical collections representative; all questions welcomed and answered. Patient/authorized medical collections representative agreed to proceed I have communicated my name and active licensure. The patient's identity and physical location wereverified at the time of this visit. Either the patient or their legal medical collections representative has been informed of the risks and benefits of -- and alternatives to -- treatment through a remote evaluation andconsents to proceed with the evaluation remotely. Index [...] with healthy lifestyle changes and incorporate cardiovascular andresistance training, Discussed weight loss expectations after bariatric and metabolic surgery, Advised PT to avoid NSAIDs, smoking tobacco given increased risk of marginal ulcers, Compliant w/ bariatric vitamins. REFERRALS: BMI forensic analyst - reminded to schedule LABS: Today: NA [...] not cover phentermine, but it is affordable efc-dj-fjkdfk. - Allan has a box of [employer] [...] Lactobacillus acidophilus (PROBIOTIC ORAL) Take by mouth. multivit-min/iron/folic/jkc981 (HAIR, SKIN AND NAILS ADVANCED ORAL) Take [...] vomiting, dumping syndrome, reactive hypoglycemia, gustatory rhinorrhea, Deniesabdominal pain, constipation, diarrhea, melena, hematochezia, Denies paresthesias, [...] 12/18/2016 2.12 1.00 - 4.00 k/uL Final Hood% 12/18/2016 6.4 % Final Abs Hood 12/18/2016 0.64 0.00 - 0.86 k/uL Final [...] 4.5 4.3 - 5.6 % Final Comment: [place] [employer] guidelines indicate that patients with HgbA1c in the range 5.7-6.4% are at increased risk for development of diabetes, and intervention by lifestyle modification may be beneficial. HgbA1c greater or equal to 6.5% is considered diagnostic of diabetes. 12/06/2023 4.4 4.3 - 5.6 % Final Comment: [place] [employer] guidelines indicate that patients with HgbA1c in the range 5.7-6.4% are at increased risk for development of diabetes, and intervention by lifestyle modification may be beneficial. HgbA1c greater or equal to 6.5% is considered diagnostic of diabetes. 12/18/2022 4.5 4.3 - 5.6 % Final Comment: [place] [employer] guidelines indicate that patients with [...] with healthy lifestyle changes and incorporate cardiovascular andresistance training, Discussed weight loss expectations after bariatric and metabolic surgery, Advised PT to avoid NSAIDs, smoking tobacco given increased risk of marginal ulcers, Compliant w/ bariatric vitamins. REFERRALS: BMI forensic analyst - reminded to schedule LABS: Today: NA [...] obstructive sleep apnea (G47.33) Nicole Marquis APRN.[facility]AN [facility] Obesity Medicine I spent 25 minutes in the visit, with more than 50% of the total brna-fp-avlg time of the visit in counseling / coordination of care. All documentation from previous visit was copied and pasted, documentation has been reviewed and edited as necessary for today's visit. documented in this encounterCenterville03-06-2025 History of Present illness Narrative* Mick Brown Samantha, LABORATORY TECHNOLOGY TEACHER - 06/15/2024 9:00 AM EST Images from the original note were not included. Allan Burr is a 39 y.o. female presents with chief complaint of Cough HPI: Cough This is a recurrent problem. The current episode started 1 to 4 weeks ago. The problem has been unchanged. The problem occurs every few minutes. The cough is Productive of sputum. Associated symptomsinclude ear congestion, headaches, nasal congestion, postnasal drip, shortness of breath and weightloss. Pertinent negatives include no chest pain, chills, [...] She has attempted to manage her symptoms ynicktto-ugv-lkjipcr antiemetics, but these have proven ineffective. She is scheduled to return to worktomorrow but is considering extending her leave until Wednesday. MEDICATIONS Current: Zofran SUBJECTIVE: MEDICATIONS: Current Outpatient Medications Medication Instructions fluconazole (Diflucan) 150 MG tablet Take 1 tablet once; may repeat in 72 hours if symptoms are notimproved L norgest/e.estradiol-e.estrad (Ashlyna) 0.15-0.03 &0.01 MG tablet tablet 1 tablet, Oral, Everymorning Multiple Vitamin (MULTI VITAMIN PO) Take by [...] for the past week, leading to a weightloss of 6-7 pounds. She has been following [...] cause of her symptoms. documented in this encounterSelect Specialty HospitalRkdsecgbbc45-96-1911 History of Present illness Narrative* Mick Garcia NP - 06/08/2024 11:00 AM EST Images from the original note were [...] medical attention for a sinus infection, which improvedafter a 2 to 3-day course of antibiotics. However, she experienced a recurrence of symptoms, primarily affecting her sinuses. Currently, she reports that the symptoms have migrated to her chest, withthe onset of coughing on Wednesday. She expresses fear of developing pneumonia, a condition she has previously experienced. She also reports mild wheezing, which began yesterday, and a sensation of pressure on her chest. Her cough is described as burning, with no expectoration. She declined the offerof Tamiflu due to concerns about potential side effects, including vivid dreams and nausea. She also reports the onset of chills today. She has been self-medicating with yeuu-hif-vyvpuze DayQuil and Mucinex. She had pneumonia around . MEDICATIONS DayQuil, Mucinex SUBJECTIVE: MEDICATIONS: Current Outpatient Medications Medication Instructions fluconazole (Diflucan) 150 MG tablet Take 1 tablet once; may repeat in 72 hours if symptoms are notimproved L norgest/e.estradiol-e.estrad (Ashlyna) 0.15-0.03 &0.01 MG tablet tablet 1 tablet, Oral, Everymorning Multiple Vitamin (MULTI VITAMIN PO) Take by [...] its course. Educated patient viral infections such ascolds/flus do not respond to abx and typically do not begin to improve until 7-10 days into the illness. Discussed symptomatic treatment with patient. Humidifier at bedside to moisten area. Push fluids. Rest. Good handwashing. Follow up if symptoms do not improve. To ER for markedly worsening symptoms. documented in this encounterSelect Specialty [id number] History of Present illness Narrative* Josefina Carrillo, LABORATORY TECHNOLOGY TEACHER - 05/10/2024 4:30 PM EST Images from the original note [...] experience postnasal drip. Her symptoms appear to wor sen in the evening and during sleep. She also reports facial swelling, particularly noticeable whenbending down. She has a history of sinus infections and believes her current symptoms are exacerbated by dry indoor heat. She has been using a humidifier, which provides some relief. Despite attemptsto manage these symptoms with saline nasal spray and nightly doses of Benadryl 50 mg, which aids insleep, there has been no significant improvement. She reports a popping sensation in her ears, particularly when blowing her nose, but does not experience any associated pain. MEDICATIONS Benadryl SUBJECTIVE: MEDICATIONS: Current Outpatient Medications Medication Instructions fluconazole (Diflucan) 150 MG tablet Take 1 tablet once; may repeat in 72 hours if symptoms are notimproved L norgest/e.estradiol-e.estrad (Ashlyna) 0.15-0.03 &0.01 MG tablet tablet 1 tablet, Oral, Everymorning Multiple Vitamin (MULTI VITAMIN PO) Take by [...] infections refer to ENT. documented in this encounterSelect Specialty HospitalTjtbcyrplw64-78-9656 Instructions* Patient Instructions* Nicole Marquis APRN.OPTOMETRIST ASSISTANT - 04/27/2024 4:07 PM EST Images from the original note were not included. $99 for 1 year supply - Bariatric Pal https://store.bariatricpalEasy Voyage/products/ddmbvuckfvah-xttjrvvrykuw-rww-day-bariat uzt-btkesv-dmfsyzsmklcf?fjbrgpp=99985072894522&selling_plan=8608898731 Compared to a regular multivitamin Kidney Stones After Bariatric Surgery After bariatric surgery, patients have an increased risk for kidney stones. Research shows that gastric bypass patients have changes in urine and higher levels of particles, called oxalates, which form kidney stones. You see, the gastrointestinal (GI) tract naturally absorbsoxalate. However, once the GI tract is altered [...] doctor or nurse practitioner. You may be askedto drink extra fluid to flush out the stone in the urine, and then strain your urine so that a stone can be sent to a lab for testing. There are ways to prevent kidney stones from forming. Drink lots of water You ve probably heard again and again from your forensic analyst that you need to consume water throughoutthe day to help your body function, keep [...] or your diet, contact your doctor, nurse practitioneror bariatric dietitian. https://www.[facility].org/updates/blogs/sdpkzpqvb-qvp-vxyipqatv-surgery-blog/ /kidney-s dtiog-jnzpk-mztwuvsne-surgery#:~:text=After%20bariatric%20surgery%2C%20patients% 20have,GI)%20tract%20naturally%20absorbs%20oxalate. documented in this encounterCenterville01-16-2025 History of Present illness Narrative* Nicole Marquis APRN.SULAIMAN - 04/27/2024 4:00 PM EST Images from the original note were not included. BMI Obesity Medicine PostOp Follow Up Visit [facility] Visit April 27, 2024 I have communicated my name and active licensure. The patient's identity and physical location wereverified at the time of this visit. Either the patient or their legal medical collections representative has been informed of the risks and benefits of -- and alternatives to -- treatment through a remote evaluation andconsents to proceed with the evaluation remotely. Index [...] with healthy lifestyle changes and incorporate cardiovascular andresistance training, Discussed weight loss expectations after bariatric and metabolic surgery, Advised PT to avoid NSAIDs, smoking tobacco given increased risk of marginal ulcers, Compliant w/ bariatric vitamins. REFERRALS: BMI forensic analyst - reminded to schedule LABS: Today: NA, [...] visit. AOM Hx: Was going to a [employer] spa and getting semaglutide injections, but it [...] Lactobacillus acidophilus (PROBIOTIC ORAL) Take by mouth. multivit-min/iron/folic/oek270 (HAIR, SKIN AND NAILS ADVANCED ORAL) Take [...] vomiting, dumping syndrome, reactive hypoglycemia, gustatory rhinorrhea, Deniesabdominal pain, constipation, diarrhea, melena, hematochezia, Denies paresthesias, [...] 12/18/2016 2.12 1.00 - 4.00 k/uL Final Hood% 12/18/2016 6.4 % Final Abs Hood 12/18/2016 0.64 0.00 - 0.86 k/uL Final [...] 4.4 4.3 - 5.6 % Final Comment: [place] [employer] guidelines indicate that patients with HgbA1c in the range 5.7-6.4% are at increased risk for development of diabetes, and intervention by lifestyle modification may be beneficial. HgbA1c greater or equal to 6.5% is considered diagnostic of diabetes. 12/18/2022 4.5 4.3 - 5.6 % Final Comment: [place] [employer] guidelines indicate that patients with [...] III (Folate III) [package insert V 1.0 [place]i]. [facility] [facility], [place], [place]: February 2015. FIB-4 Calculation: 0.77 at [...] with healthy lifestyle changes and incorporate cardiovascular andresistance training, Discussed weight loss expectations after bariatric and metabolic surgery, Advised PT to avoid NSAIDs, smoking tobacco given increased risk of marginal ulcers, Compliant w/ bariatric vitamins. REFERRALS: BMI forensic analyst - reminded to schedule LABS: Today: NA [...] kidney stone prevention nutrition interventions Nicole Marquis APRN.[facility] Obesity Medicine I spent 25 minutes in the visit, with more than 50% of the total wsmq-rp-ecut time of the visit in counseling / coordination of care. All documentation from previous visit was copied and pasted, documentation has been reviewed and edited as necessary for today's visit. documented in this encounterCenterville01-16-2025 NoteHNO ID: [id number] Author: NICOLE MARQUIS APRN.OPTOMETRIST ASSISTANT Service: ? Author Type: Nurse Practitioner Type: Progress Notes Filed: 04/27/2024 16:25 Note Text: BMI Obesity Medicine PostOp Follow Up Visit [facility] Visit April 27, 2024 I have communicated my name and active licensure. The patient's identity and physical location were verified at the time of this visit. Either the patient or their legal medical collections representative has been informed of the risks [...] ulcers, Compliant w/ bariatric vitamins. REFERRALS: BMI forensic analyst - reminded to schedule LABS: Today: NA, [...] visit. AOM Hx: Was going to a [employer] spa and getting semaglutide injections, but it [...] Lactobacillus acidophilus (PROBIOTIC ORAL) Take by mouth. multivit-min/iron/folic/zer040 (HAIR, SKIN AND NAILS ADVANCED ORAL) Take [...] oligohydramnios Dorsalgia, unspecified S/ (more content not included)...[facility]11-21-2024 Note [id number]#1.00[facility] 02-24-2024 NoteEducation Materials Urology Kidney Stones Kidney stones are solid, rock-like deposits that form inside of the kidneys. The kidneys are a pairof organs that make urine. A kidney stone [...] some cases, you may be given fluids throughan IV and may need to be monitored [...] these instructions at home: Medicines ? Take tlsv-oop-rjubwbi and prescription medicines only as told by [...] stone may help prevent you from getting kidneystones in the future. ? Keep all follow-up visits. You may need follow-up X-rays or ultrasounds to make sure that your stone has passed. How is this prevented? To prevent another kidney stone: ? Drink enough fluid to keep your urine pale yellow. This is the best way to prevent kidney stones. ? Eat a healthy diet. Follow (more content not included)...[facility] 02-24-2024 [facility] Clinical Discharge Summary PERSON INFORMATION Name ALLAN BURR Age 38 Years 1985 Sex FEMALE Language Kuwaiti PCP MARIYA HUERTA Marital Status Med Service Observation Acct# Arrival 02/23/2024 03:22:23 Visit Reason Nausea; Back swelling; Flank pain; RENAL COLIC ON LEFT SIDE Acuity LOS 000 33:20 Address: [address] [place] [address] Comment: PROVIDER INFORMATION VITALS INFORMATION Vital Sign [...] known allergies Medication List: New Medications [id number], [address], [place] [id number], [phone] tamsulosin (Flomax 0.4 mg oral capsule) 1 cap(s) Oral (given by mouth) At bedtime. JAYDA. Refills: 0. Medications to Continue That Have Not Changed Other Medications ethinyl estradiol-levonorgestrel (Amethia oral tablet) 1 tab(s) Oral (given by mouth) every day. tirzepatide (tirzepatide 7.5 mg/0.5 mL subcutaneous solution) 7.5 Milligram Subcutaneous (under theskin) every week. Comment: Lab and Radiology Results [...] range between ( 1.3 and 2.9 ) Hood Abs#: 0.7 x103/mcL -- Normal range between ( 0.0 and 0.8 ) Auto Baso %: 1.2 % -- Normal range between ( 0.2 and 2.0 ) Auto Hood %: 8 % -- Normal range between [...] and 51.0 ) Test Serum Qual: Negative [facility] [place] Order 02/23/2024 3:55 AM Tube Collected: Yes Computed Tomography 02/23/2024 5:[address] Abdomen/Pelvis w/o Contrast: CT Abdomen/Pelvis w/o Contrast Radiology Report 02/23/2024 5:29 AM Radiology Report: Radiology Report DIET & ACTIVITY Patient Activity Level: As Tolerated Patient Diet: Regular Patient Activity Restrictions: (more content not included)...[facility]Xsbbmgwy76-33-1429 NoteHNO ID: [id number] Author: JESSIE HURTADO RN Service: ? Author Type: Registered Nurse Type: Progress Notes Filed: 02/22/2024 15:46 Note Text: Pt advised Hgb 11.9/Hct 34.4% and does not qualify for phlebotomy as ordered. Pt denies any issues, agreeable to forgo phleb today. Denied lab printout or needs. Aware of next appt and will f/u as scheduled. [facility] History of Present illness Narrative* Jessie Hurtado RN - 02/22/2024 3:42 PM EST Pt advised Hgb 11.9/Hct 34.4% and does not qualify for phlebotomy as ordered. Pt denies any issues,agreeable to forgo phleb today. Denied lab printout or needs. Aware of next appt and will f/u as scheduled. Jessie Hurtado RN documented in this encounterCenterville11-05-2024 History of Present illness Narrative* Mick Garcia NP - 02/15/2024 9:30 AM EST Images from the original note were not included. Allan Burr is a 38 y.o. female presents with chief complaint of Follow-up HPI: Patient went to Urgent care [facility] on since she was having breathing issues [...] cramps last night. Additionally, she went to [place], where it was noticed that her iron levels were too high. 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 She has started therapeutic phlebotomy, where a bag of blood is removed every 2 weeks. SUBJECTIVE: MEDICATIONS: ALLERGIES Current Outpatient Medications Medication Instructions albuterol HFA 90 mcg/act inhaler 2 puffs, Inhalation, Every 4 hours PRN L norgest/e.estradiol-e.estrad (Ashlyna) 0.15-0.03 &0.01 MG tablet tablet 1 tablet, Oral, Everymorning levoFLOXacin (Levaquin) 750 MG tablet Take by [...] No follow-ups on file. documented in this encounterSelect Specialty HospitalShcdvbsbym93-85-1295 NoteEducation Materials Infectious Disease Community-Acquired Pneumonia, Adult Pneumonia [...] caused by a virus, such as the commoncold and the flu (influenza). It can also be caused by bacteria or fungi. While the common cold andinfluenza can pass from person to person (are [...] in (aspirating) mucus and other fluids from yourmouth and nose. ? A weakened body defense system (immune system). ? Having had your spleen removed (splenectomy). The spleen is the organ that helps fight germs and infections. ? Not cleaning your teeth and gums well (poor dental hygiene). ? Using tobacco products. ? Traveling to places where germs that cause pneumonia are present or being near certain animals oranimal habitats that could have germs that cause [...] or a physical exam. You may also havetests, including: ? Imaging, such as a chest [...] these instructions at home: Medicines ? Take rese-xua-knplwjc and prescription medicines only as told by [...] the pneumonia vaccine. There (more content not included)...[id number] [facility] Clinical Discharge Summary PERSON INFORMATION Name ALLAN BURR Age 38 Years 1985 Sex FEMALE Language Kuwaiti PCP MARIYA HUERTA Marital Status Med Service Med/Surg Acct# Arrival 02/10/2024 22:39:00 Visit Reason Medical problem reevaluation; Cough; HYPOKALEMIA, PNEUMONIA, PNEUMONIA INVOLVING RT LUNG, FAILURE OF OUTPATIENT TREATMENT Acuity LOS 000 40:43 Address: [address] [place] [address] Comment: PROVIDER INFORMATION VITALS INFORMATION Vital Sign [...] No known allergies Medication List: New Medications [id number], [address], [place] [id number], [phone] acetaminophen-dextromethorphan (Robitussin Maximum Strength Severe Cough Plus Sore Throat 650 mg-20mg/20 mL oral liquid) 20 Milliliter Oral (given by mouth) every 4 hours as needed as needed for cough. Refills: 0. hydrocortisone topical (hydrocortisone 0.5% topical cream) 1 ada Topical (on the skin) 2 times per day. Refills: 0. levoFLOXacin (levoFLOXacin 750 mg oral tablet) 1 tab(s) Oral (given by mouth) every 24 hours. for 7Days. Refills: 0. Medications That Were Updated - [...] range between ( 1.3 and 2.9 ) Hood Abs#: 0.3 x103/mcL -- Normal range between ( 0.0 and 0.8 ) Auto Baso %: 0.1 % -- Normal range between ( 0.2 and 2.0 ) Auto Hood %: 5 % -- Normal range between [...] 72 IU/L -- Norm (more content not included)...[facility] 02-10-2024 Telephone encounter Note* Telephone Encounter - Dagoberto Mendez MD - 02/10/2024 8:34 PM EDT I was contacted by [facility] regarding this patient, a 38 year old woman who presented to the ED with a cough- rx with amoxicillin starting Wednesday CXR with RLL pneumonia Pt mildly tachycardic but not hypoxic or tachypneic Labs otherwise unremarkable except for K of 3.0 Sending facility's hospitalist declined to accept patient- pt requesting transfer here Accepted pt to Inpatient Telemetry [facility] with diagnosis Community Acquired Pneumonia Dagoberto Mendez MD 02/10/242039 [place] Work Phone: [phone] Miscellaneous Notes* Telephone Encounter - Dagoberto Mendez MD - 02/10/2024 8:34 PM EDT I was contacted by [facility] regarding this patient, a 38 year old woman who presented to the ED with a cough- rx with amoxicillin starting Wednesday CXR with RLL pneumonia Pt mildly tachycardic but not hypoxic or tachypneic Labs otherwise unremarkable except for K of 3.0 Sending facility's hospitalist declined to accept patient- pt requesting transfer here Accepted pt to Inpatient Telemetry [facility] with diagnosis Community Acquired Pneumonia Dagoberto Mendez MD 02/10/242039 documented in this encounterCenterville10-31-2024 NotePatient Education Materials Follows:[facility]Csesykab58-77-1210 History of Present illness Narrative* Lakesha Patel NP - 02/08/2024 8:08 AM EDT Prescription sent documented in this encounterSelect Specialty HospitalWmerdhelrc32-71-8700 History of Present illness Narrative* Lakesha Patel NP - 02/07/2024 4:00 PM EDT Images from the original note [...] past 7 days. The problem has been rapidlyworsening. The problem occurs every few minutes. The [...] right-upper field reveals decreased breath sounds. Examination ofthe left-upper field reveals decreased breath sounds. Examination of the right-lower field reveals wheezing. Examination of the left- lower field reveals wheezing. Decreased breath sounds and wheezingpresent. Abdominal: General: Abdomen is flat. Bowel sounds [...] Yes Aggravated by: nothing documented in this encounterSelect Specialty HospitalRqpwjkkpxf02-20-0553 Instructions* Patient Instructions* Leigha Lake, DELONTE - 02/02/2024 4:02 PM EDT 1. Protein: [...] Vitamin/minerals: Take daily bariatric vitamins, including: - [employer]: 1 Bariatric Multivitamin w/o iron (capsule or chewable) and 4676-7429 mg calcium citrate per day 5. Exercise: strive for daily activity - combine strength training and cardio for best workouts. Goal is 30 minutes 5-6x per week. -try [employer] videos or [employer] videos to incorporate the kids 6. Practice [...] for Follow up: April (after Nicole visit), [phone] documented in this encounterCenterville10-23-2024 Telephone encounter Note * Telephone Encounter - Titus Taylor MD - 02/02/2024 3:53 PM EDT I signed. Thanks [place]10-23-2024 Miscellaneous Notes* Telephone Encounter - Titus Taylor MD - 02/02/2024 3:53 PM EDT I signed. Thanks * Telephone Encounter - Deb Maza RN - 02/02/2024 3:50 PM EDT Please sign standing CBC order for phlebotomy. Thanks Wicho Maza RN documented in this encounterCenterville10-23-2024 Telephone encounter Note * Telephone Encounter - Deb Maza RN - 02/02/2024 3:50 PM EDT Please sign standing CBC order for phlebotomy. Thanks Wicho Maza RN [place]10-23-2024 History of Present illness Narrative* Leigha Lake, RD - 02/02/2024 3:45 PM EDT The [place] [facility] Therapy: Virtual Consult - Initial Assessment I have communicated my name and active licensure. The patient s identity and physical location wereverified at the time of this visit. Either the patient or their legal medical collections representative has been informed of the risks and benefits of -- and alternatives to -- treatment through a remote evaluation andconsents to proceed with the evaluation remotely. Nutrition Diagnosis: Altered Gastrointestinal Tract Function, related to, S/P bariatric surgery, asevidenced by patient update and PSH and Overweight/obesity, [...] Vitamin/minerals: Take daily bariatric vitamins, including: - [employer]: 1 Bariatric Multivitamin w/o iron (capsule or chewable) and 8480-6629 mg calcium citrate per day 5. Exercise: strive for daily activity - combine strength training and cardio for best workouts. Goal is 30 minutes 5-6x per week. -try [employer] videos or [employer] videos to incorporate the kids 6. Practice [...] for Follow up: April (after Nicole visit), [phone] Patient presents for initial nutrition Virtual Consult [...] to post- weight retention (x2). Patient reports sleepis broken and stress is manageable, however high [...] and balanced. Tracking intake most days, averaging 7385-2860 calories which is likely exceeding needs for [...] Breakfast - greens drink and protein bagel (portuguese yogurt and flour) with egg and guerrier and turkey and low fat cheese Snack - Quest protein shake mixed with cold brew and sometimes [employer] bar Lunch - ratio yogurt with oreo [...] 3:21 PM PAGER: N/A documented in this encounterCenterville10-23-2024 NoteHNO ID: [id number] Author: LEIGHA LAKE RD Service: ? Author Type: Registered Dietitian Type: Progress Notes Filed: 02/02/2024 16:03 Note Text: The [place] [facility]: Virtual Consult - Initial Assessment I have communicated my name and active licensure. The patient?s identity and physical location were verified at the time of this visit. Either the patient or their legal medical collections representative has been informed of the risks [...] Vitamin/minerals: Take daily bariatric vitamins, including: - RebelMouse: 1 Bariatric Multivitamin w/o iron (capsule or chewable) and 7904-2806 mg calcium citrate per day 5. Exercise: strive for daily activity - combine strength training and cardio for best workouts. Goal is 30 minutes 5-6x per week. -try [employer] videos or [employer] videos to incorporate the kids 6. Practice [...] for Follow up: April (after Nicole visit), [phone] Patient presents for initial nutrition Virtual Consult [...] and balanced. Tracking intake most days, averaging 7519-9998 calories which is likely exceeding needs for [...] Breakfast - greens drink and protein bagel (portuguese yogurt and flour) with egg and guerrier [...] TO LEARN Cognitive ability (more content not included)...[facility] 01-26-2024 Instructions* Patient Instructions* Nicole Marquis APRN.CNP - 01/26/2024 7:53 PM EDT Please follow up with Heavy Truck Mechanic for annual visit documented in this encounterCenterville10-16-2024 History of Present illness Narrative* Nicole Marquis APRN.CNP - 01/26/2024 4:30 PM EDT Images from the original note were not included. BMI Obesity Medicine PostOp Follow Up Visit [facility] Visit January 26, 2024 I have communicated my name and active licensure. The patient's identity and physical location wereverified at the time of this visit. Either the patient or their legal medical collections representative has been informed of the risks and benefits of -- and alternatives to -- treatment through a remote evaluation andconsents to proceed with the evaluation remotely. Index [...] with healthy lifestyle changes and incorporate cardiovascular andresistance training, Discussed weight loss expectations after bariatric and metabolic surgery, Advised PT to avoid NSAIDs, smoking tobacco given increased risk of marginal ulcers, Compliant w/ bariatric vitamins. 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 multivit-min/iron/folic/xnw150 (HAIR, SKIN AND NAILS ADVANCED ORAL) Take [...] vomiting, dumping syndrome, reactive hypoglycemia, gustatory rhinorrhea, Deniesabdominal pain, constipation, diarrhea, melena, hematochezia, Denies paresthesias, [...] 12/18/2016 2.12 1.00 - 4.00 k/uL Final Hood% 12/18/2016 6.4 % Final Abs Hood 12/18/2016 0.64 0.00 - 0.86 k/uL Final [...] 4.4 4.3 - 5.6 % Final Comment: [place] [employer] guidelines indicate that patients with HgbA1c in the range 5.7-6.4% are at increased risk for development of diabetes, and intervention by lifestyle modification may be beneficial. HgbA1c greater or equal to 6.5% is considered diagnostic of diabetes. 12/18/2022 4.5 4.3 - 5.6 % Final Comment: [place] [employer] guidelines indicate that patients with [...] III (Folate III) [package insert V 1.0 Kuwaiti]. [employer], [place], [place]: February 2015. FIB-4 Calculation: 0.73 at [...] with healthy lifestyle changes and incorporate cardiovascular andresistance training, Discussed weight loss expectations after bariatric and metabolic surgery, Advised PT to avoid NSAIDs, smoking tobacco given increased risk of marginal ulcers, Compliant w/ bariatric vitamins. REFERRALS: BMI forensic analyst - reminded to schedule LABS: Today: NA, [...] with more than 50% of the total cbud-oj-daez time of the visit in counseling / coordination of care. All documentation from previous visit was copied and pasted, documentation has been reviewed and edited as necessary for today's visit. documented in this encounterCenterville10-16-2024 NoteHNO ID: [id number] Author: NICOLE MARQUIS APRN.CNP Service: ? Author Type: Nurse Practitioner Type: Progress Notes Filed: 01/26/2024 19:54 Note Text: BMI Obesity Medicine PostOp Follow Up Visit [facility] Visit January 26, 2024 I have communicated my name and active licensure. The patient's identity and physical location were verified at the time of this visit. Either the patient or their legal medical collections representative has been informed of the risks [...] ulcers, Compliant w/ bariatric vitamins. 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 multivit-min/iron/folic/sbq083 (HAIR, SKIN AND NAILS ADVANCED ORAL) Take [...] Dorsalgia, unspecified S/P l (more content not included)...[facility]-2024 Telephone encounter Note* Telephone Encounter - Leesa Voss RN - 01/13/2024 3:41 PM EDT Discussed Phlebotomy parameters with Dr Taylor. Order clarification: phlebotomy if Hgb is greater than 12 or Hct greater than 42 Leesa Voss RN [place]10-03-2024 Miscellaneous Notes* Telephone Encounter - Leesa Voss RN - 01/13/2024 3:41 PM EDT Discussed Phlebotomy parameters with Dr Taylor. Order clarification: phlebotomy if Hgb is greater than 12 or Hct greater than 42 Leesa Voss RN documented in this encounterCenterville09-26-2024 Instructions* Patient Instructions* Titus Taylor MD - 01/06/2024 10:51 AM EDT Will do phlebotomy every 2 weeks for 4 times F/u in 2 months. documented in this encounterCenterville09-26-2024 History of Present illness Narrative* Titus Taylor MD - 01/06/2024 10:30 AM EDT PATIENT NAME: Allan Burr CLINIC NO.: [id number] ATTENDING PHYSICIAN: Titus Taylor MD DATE OF SERVICE: January 06, 2024 Some of the elements of this note have been copied from previous progress note dated 12/29/23. All the information has been reviewed carefully. Dear Dr. Nicole Marquis [address] [facility] [address] thank you for referring Allan Burr for an opinion regarding elevated iron levels. CHIEF COMPLAINT: Elevated iron levels HPI: Allan Burr is a 38 year old year old female referred to us for elevated iron levels. 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 Updated visit 01/06/24: Doing well. 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 Current Outpatient Medications Medication Sig ondansetron (ZOFRAN) 4 mg tablet take 1 tablet by mouth every 6 hours as needed MULTIVITAMIN ORAL Take by mouth. Lactobacillus acidophilus (PROBIOTIC ORAL) Take by mouth. multivit-min/iron/folic/iib541 (HAIR, SKIN AND NAILS ADVANCED ORAL) Take [...] Range Status 12/30/2023 5.4 % Final Abs Hood Date Value Ref Range Status 12/30/2023 0.28 [...] in [address] Nicole Marquis [phone] [facility] [phone] thank you for allowing me to participate in Allan Burr care, if there are any questions or concerns please do not hesitate to contact me at the number below. I spent a total of 30 minutes on the date of the service which included preparing to see the patient, crki-zx-lsar patient care, completing clinical documentation, obtaining and/or reviewing separately obtained history, performing a medically appropriate examination, counseling and educating the pat ient/family/caregiver, ordering medications, tests, or procedures, communicating with other HCPs (not separately reported), independently interpreting results (not separately reported), communicatingresults to the patient/family/caregiver, and care coordination (not separately reported). Titus Taylor MD. Hematology/Medical Oncology [facility] [place] [phone] CC: documented in this encounterCenterville09-18-2024 Instructions* Patient Instructions* Titus Taylor MD - 12/29/2023 4:10 PM EDT Ordered labs Do not take any iron supplements F/u in 3 months. documented in this encounterCenterville09-18-2024 History of Present illness Narrative* Titus Taylor MD - 12/29/2023 4:00 PM EDT PATIENT NAME: Allan Burr CLINIC NO.: [id number] ATTENDING PHYSICIAN: Titus Taylor MD DATE OF SERVICE: December 29, [address] Nicole Marquis [address] [facility] [address] thank you for referring Allan Burr for an opinion regarding elevated iron levels. CHIEF COMPLAINT: Elevated iron levels HPI: Allan Burr is a 38 year old year old female referred to us for elevated iron levels. 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 Current Outpatient Medications Medication Sig MULTIVITAMIN ORAL Take by mouth. Lactobacillus acidophilus (PROBIOTIC ORAL) Take by mouth. multivit-min/iron/folic/vea101 (HAIR, SKIN AND NAILS ADVANCED ORAL) Take [...] Wt 82.2 kg (181 lb 3.5 oz) LMP08/25/2023 (Exact Date) SpO2 100% BMI 28.28 kg/m [...] Range Status 12/06/2023 5.8 % Final Abs Hood Date Value Ref Range Status 12/06/2023 0.40 [...] in [address] Nicole Marquis [address] [facility] [address] thank you for allowing me to participate in Allan Burr care, if there are any questions or concerns please do not hesitate to contact me at the number below. I spent a total of 45 minutes on the date of the service which included preparing to see the patient, jfrn-un-iyky patient care, completing clinical documentation, obtaining and/or reviewing separately obtained history, performing a medically appropriate examination, counseling and educating the pat ient/family/caregiver, ordering medications, tests, or procedures, communicating with other HCPs (not separately reported), independently interpreting results (not separately reported), communicatingresults to the patient/family/caregiver, and care coordination (not separately reported). Titus Taylor MD. Hematology/Medical Oncology [facility] [place] [phone] CC: documented in this encounterCenterville08-27-2024 Telephone encounter Note * Telephone Encounter - Yajaira Keller LPN - 12/07/2023 5:07 PM EDT Patient completed labs. [place]08-27-2024 Miscellaneous Notes* Telephone Encounter - Yajaira Keller LPN - 12/07/2023 5:07 PM EDT Patient completed labs. documented in this encounterCenterville08-23-2024 Note* Addendum Note - Valerie Harvey APRN.CNP - 12/03/2023 4:37 PM EDTAddended by: VALERIE HARVEY on: 12/03/2023 04:37 PM Modules accepted: Orders [place]08-23-2024 Miscellaneous Notes* Addendum Note - Valerie Harvey APRN.CNP - 12/03/2023 4:37 PM EDTAddended by: VALERIE HARVEY on: 12/03/2023 04:37 PM Modules accepted: Orders documented in this encounterCenterville07-10-2024 Telephone encounter Note * Telephone Encounter - Nicole Marquis APRN.CNP - 10/20/2023 1:49 PM EDT Phentermine Rx sent. Nicole Marquis APRN.CNP [place]07-10-2024 Miscellaneous Notes* Telephone Encounter - Nicole Marquis APRN.CNP - 10/20/2023 1:49 PM EDT Phentermine Rx sent. Nicole Marquis APRN.CNP documented in this encounterCenterville06-26-2024 Instructions* Patient Instructions* Nicole Marquis APRN.CNP - 10/06/2023 1:48 PM EDT Images from the original note were not included. Follow up in 3 months. If needed I have shared medical appointments (SMA's) Wednesday afternoons at 2:30 (virtual) and will have an in-person SMA in [place] on Mondays at 3 pm starting in August. Call [phone] to schedule. [place] office or [place] office [phone] Navigating medication shortages: - If the pharmacy [...] Reported to FDA- Check here for updates onsupply per medication and dose https://www.accessdata.fda.gov/scripts/drugshortages/default.cfm Your Weight Can't Wait https://yourweightcantwait.sg/ Recognizing and treating obesity as a disease 60 Minutes [employer] Surgical Journey For Patients With Obesity https://www.B[employer] Sentry.BeeTV/patient-journey/obesity YouTube Video Junaid Quevedo, PhD Calories, Carbs, or Quality: What Matters Most for Body Weight? Podcast: The Science Behind Metabolism & Weight Loss with Junaid Quevedo, PhD https://podcasts.Spotigo/nz/podcast/beg-ndxjsng-jnzdqf-mebvtoqbvm-ycmqda-cylt- with-junaid/[email or web address]?[id number] EBM The energy balance model of obesity: [...] after surgery and what you can do tomake it better. We ve even included a 1-Day meal plan to help you get started with managing your acid reflux. What is acid reflux? A normal stomach without acid reflux and a stomach with acid reflux Acid reflux. GERD. Heartburn. You may see these terms used interchangeably, but they have medicallydifferent definitions. Acid Reflux: A condition in which stomach acid bubbles up into the esophagus. This occurs from a weak sphincter muscle at the junction of the stomach and esophagus. Called the lower esophageal sphincter (LES), its job is to keep food and acid in the stomach. GERD: Chronic and/or severe acid reflux. It s diagnosed when someone has acid reflux at least twiceper week along with confirmation from other exploratory [...] improve acid reflux, gastric sleeve may not beone of them. Some research shows that gastric [...] revision with a Juanis-en-Y gastric bypass. Another optionis fundoplication surgery where part of the stomach [...] reliable way to reduce acid reflux, one smallstudy found that having a gastric sleeve procedure [...] after a gastric sleeve and hiatal hernia repairmay be at higher risk of getting another [...] may get more benefit if you include allmethods. Medications for acid reflux Antacids neutralize stomach acid. Ask your doctor which antacids are appropriate for you. H2 blockers work to reduce stomach acid before it forms. Proton pump inhibitors also work to reduce stomach acid but are usually stronger and faster than A5wgoemish. Dietary habits for acid reflux Reduce or avoid common acid reflux trigger foods. These include alcohol, tomato products, chocolate, coffee, spicy food, carbonated drinks, peppermint, greasy foods and fatty foods. Reduce or avoid personal trigger foods that you ve noticed give you trouble. Avoid drinking liquids with meals or snacks. Eat your meal and then wait at least 30 minutes beforeconsuming liquids. Eat small meals, rather than large [...] Try Breakfast: 1 scrambled egg (75 calories) Kuwaiti muffin (67 calories) Calories per meal: 142 AM Snack & Fluids: *Spread out and sipped between meals 2 cups water (0 calories) 1 cup skim milk or unsweetened soy milk (90 calories) Calories per meal: 90 Lunch: 4 oz canned tuna in water (100 calories) 2 Tbsp fat free villagran (20 calories) 1 slice low fat Egyptian cheese (50 calories) 1 slice whole grain [...] see the types of foods that are chosenand you can use this as a nice [...] after gastric sleeve surgery? (Full meal plan) (Parudi) TIRZEPATIDE (Zepbound) Tirzepatide delays gastric emptying and [...] (abdominal) pain. Video Instructions for Injecting Zepbound: www.Loterity.TrillTip Link to savings card https://www.[employer]/coverage-savings Tirzepatide: Patient drug information What is Zepbound? Zepbound is an injectable prescription medicine that may help adults with obesity, or with excess weight (overweight) who also have weight-related medical problems, lose weight and keep it off. Zepbound should be used with a reduced- calorie diet and increased physical activity. Zepbound works by activating 2 hormone receptors. It reduces appetite, food intake, body fat, andbody weight. Zepbound contains tirzepatide and should not be used with other tirzepatide- containing products or any GLP-1 receptor agonist medicines. It is not known if Zepbound is safe and effective when taken with other prescription, ernl-ctd-limdbfi, or herbal weight loss products. It is [...] in some people who use Mounjaro. Tell yourhealthcare provider right away if you get symptoms [...] effects. You can report side effects at 6-155-BGR-1305 or www.fda.gov/medwatch. Before using Zepbound Your healthcare [...] problems with your pancreas or kidneys, or severeproblems with your stomach, such as slowed emptying of your stomach (gastroparesis) or problems digesting food? ? Do you take diabetes medicines, such as insulin or sulfonylureas? ? Do you have a history of diabetic retinopathy? ? Do you take any other prescription medicines or vtaa-akt-nfpsddx drugs, vitamins, or herbal supplements? ? Are you , plan to become , , or plan to breastfeed? Zepbound may harm your unborn baby. Tell your healthcare provider if you become while using Zepbound. It isnot known if Zepbound passes into your breast milk. You should talk with your healthcare provider about the best way to feed your baby while using Zepbound. Exposure Registry: There will be a exposure registry for women who have taken Zepbound during . The purpose of this registry is to collect information about the health ofyou and your baby. Talk to your healthcare provider about how you can take part in this registry, or you may contact [employer] at 7-969-ZtxpcDb ( ). https://www.zepbound.[employer].BeeTV/?gclid=[email or web address] AAEgLpaPD_BwE Warning This drug has been shown to [...] health problem called Multiple Endocrine Neoplasia syndrome type2 (MEN 2), or if you or a [...] off. Zepbound should be used with a reduced- calorie diet and increased physical activity. What do [...] or change the dose of any drug withoutchecking with your doctor. What are some things I need to know or do while I take this drug? Tell all of your health care providers that you take this drug. This includes your doctors, nurses,pharmacists, and dentists. Wear disease medical alert ID [...] prevent . If you take control pills, youmay need to switch to another type of hormone-based control like a vaginal ring if your doctor tells you to. If another type of hormone-based control is not an option, use some other kindof control also, like a condom. Do this [...] of stress such as fever, infection, injury, orsurgery. A change in physical activity, exercise, or [...] , plan on getting , or are breast- feeding. You will need to talk about the [...] right away if you have any of thefollowing signs or symptoms that may be related to a very bad side effect: Signs of an allergic reaction, like rash; hives; itching; red, swollen, blistered, or peeling skin with or without fever; wheezing; tightness in the chest or throat; trouble breathing, swallowing, ortalking; unusual hoarseness; or swelling of the mouth, [...] no side effects or only have minor sideeffects. Call your doctor or get medical help [...] all information given to you. Follow all instructionsclosely. It is given as a shot into the fatty part of the skin on the top of the thigh, belly area, or upperarm. If you will be giving yourself the [...] If you have any questions about this drug,please talk with your doctor, nurse, pharmacist, or other health care provider. If you think there has been an overdose, call your poison control center or get medical care right away. Be ready to tell or show what was taken, how much, and when it happened. Last Reviewed [id number] Consumer Information Use and Disclaimer This generalized [...] that may apply to a specific patient. Itis not intended to be medical advice or [...] or approved for treating a specific patient. homedeco2u. and its affiliatesdisclaim any warranty or liability relating to this information or the use thereof. The use of thisinformation is governed by the Terms of Use, available at https://www.[employer].com/en/know/lgcwprgh-rnoobyeuarzhk-snxov. documented in this encounterCenterville06-26-2024 History of Present illness Narrative* Nicole Marquis APRN.SULAIMAN - 10/06/2023 1:32 PM EDT Images from the original note were not included. BMI Obesity Medicine PostOp Follow Up Visit [facility] Visit October 06, 2023 I have communicated my name and active licensure. The patient's identity and physical location wereverified at the time of this visit. Either the patient or their legal medical collections representative has been informed of the risks and benefits of -- and alternatives to -- treatment through a remote evaluation andconsents to proceed with the evaluation remotely. 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 AOM Hx: Was going to a [employer] [facility] and getting semaglutide injections, but was costly. Metformin - GI upset Contrave SE- bad dreams, felt like she was in a haze Topiramate took when she was younger for migraines Had kidney stone while . 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 DAILY SUPPLEMENTS: Yes Calcium: [...] vomiting, dumping syndrome, reactive hypoglycemia, gustatory rhinorrhea, Deniesabdominal pain, constipation, diarrhea, melena, hematochezia, Denies paresthesias, [...] 12/18/2016 2.12 1.00 - 4.00 k/uL Final Hood% 12/18/2016 6.4 % Final Abs Hood 12/18/2016 0.64 0.00 - 0.86 k/uL Final [...] with healthy lifestyle changes and incorporate cardiovascular andresistance training, Discussed weight loss expectations after bariatric and metabolic surgery, Advised PT to avoid NSAIDs, smoking tobacco given increased risk of marginal ulcers, Compliant w/ bariatric vitamins. 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 All documentation from previous visit was copied and pasted, documentation has been reviewed and edited as necessary for today's visit. documented in this encounterCenterville02-07-2024 History of Present illness Narrative* Josefina Carrillo NP - 05/19/2023 8:30 AM EST Allan Burr is a 37 y.o. female presents with chief complaint of Sinusitis HPI: Sinus Pain Patient complains of congestion, cough, frequent clearing of the throat, mouth breathing, nasal congestion, sinus pressure, sneezing, and snoring. Onset of symptoms was 2 weeks ago. Symptoms have been gradually worsening since that time. She is drinking plenty of fluids. Past history is significantfor occasional episodes of bronchitis. Patient is former smoker, quit 11 years ago. Patient has been taking Flonase, mucin ex, sudafed, benadryl OTC, and uses humidifier daily. Did [facility]ley home covid test Wednesday came back Negative. [...] rhinorrhea present. Rhinorrhea is clear. Mouth/Throat: Lips: Forada. Mouth: Mucous membranes are moist. Comments: PND, [...] symptoms persist or worsen. documented in this encounterSelect Specialty [id number] Instructions* Patient Instructions* Nicole Marquis APRN.[facility] - 02/03/2023 11:33 AM EDT Images from the original note were not included. consult to BMI nutrition: I recommend Valerie Hui RD or Leigha Lake RD. Call [phone] to schedule. $99 for 1 year supply - Bariatric Pal Avoid all NSAIDS https://store.bariatricpal.BeeTV/products/zhiduntgurvb-matrpaojyohz-zit-day-bariat jih-teskko-rufhcfmgnkmp?hguvumw=[id number]&selling_plan=[id number] MANAGING SIDE EFFECTS WITH GLP1's The side [...] benefiber, metamucil, garden of life, increase it slowlyover time and drink plenty of water with [...] together so you have more productive burps whenyou want to. Beano contains a digestive enzyme that helps break down those hdju-mf-ohvvsk sugars found in carbohydrates, vegetable, and beans. Enzyme lactase (Lactaid, Lactrase, and Dairy Ease) helps people with lactose intolerance digest dairy. Probiotics contain good bacteria that promote healthy digestion. These good bacteria may replace some of the bad bacteria causing that smelly gas byproduct. https://www.Mobile Action/JellyCloud/aia-gc-fdy-dho-kc-gbgtnu-burps#otc-treatments Nutrition tips: 1. Do not skip meals. [...] may have 1-2 servings per day of sugar- free beverages. Avoid alcohol. Headaches and blood sugar [...] caffeine. Maintain post-bariatric vitamin and mineral intake. https://www.ncbi.nlm.nih.gov/pmc/articles/NJP9652249/ Your Weight Can't Wait https://yourweightcantwait.sg/ Recognizing and treating obesity as a disease 60 Minutes documented in this encounterCenterville10-25-2023 History of Present illness Narrative* Nicole Marquis APRN.CNP - 02/03/2023 11:30 AM EDT BMI Obesity Medicine PostOp Follow Up Visit [facility] Visit February 03, 2023 I have communicated my name and active licensure. The patient's identity and physical location wereverified at the time of this visit. Either the patient or their legal medical collections representative has been informed of the risks and benefits of -- and alternatives to -- treatment through a remote evaluation andconsents to proceed with the evaluation remotely. 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 Has been off of work more recently. Not drinking as much water. Has not seen forensic analyst yet. Has been having morning headaches. Tries to take tylenol, but occasionally takes Excedrin. Was taking compounded semaglutide previously, now taking Wegovy. Tolerated well. Weight is decreased since last visit. AOM Hx: Was going to a [employer] [facility] and getting semaglutide injections, but it is costly. Metformin - GI upset Contrave SE- bad dreams, felt like she was in a haze Topiramate took when she was younger for migraines Had kidney stone while . 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 Phentermine HCl 37.5 [...] vomiting, dumping syndrome, reactive hypoglycemia, gustatory rhinorrhea, Deniesabdominal pain, constipation, diarrhea, melena, hematochezia, Denies paresthesias, [...] 12/18/2016 2.12 1.00 - 4.00 k/uL Final Hood% 12/18/2016 6.4 % Final Abs Hood 12/18/2016 0.64 0.00 - 0.86 k/uL Final [...] with healthy lifestyle changes and incorporate cardiovascular andresistance training, Discussed weight loss expectations after bariatric and metabolic surgery, Advised PT to avoid NSAIDs, smoking tobacco given increased risk of marginal ulcers, Compliant w/ bariatric vitamins. 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 All documentation from previous visit was copied and pasted, documentation has been reviewed and edited as necessary for today's visit. documented in this encounterCenterville07-19-2023 Instructions* Patient Instructions* Nicole Marquis APRN.CNP - 10/28/2022 8:14 AM EDT - start metformin 500 mg tab at dinner only - continue phentermine - add calcium - Fasting labs - please get drawn at you convenience (fast for 8-10 hours, drink 1-2 glasses of water before). - I have placed a consult to BMI nutrition: I recommend Valerie Hui RD or Leigha Lake RD. Call [phone] to schedule. Bariatric Multivitamins: $99 for 1 year supply - Bariatric Pal https://store.bariatricpalEasy Voyage/products/fmxenodyxklt-aebelgdgzqgv-pdb-day-bariat zdh-aqnpzh-zewvtzhcsghe?jmbrejv=[id number]&selling_plan=[id number] Bariatric Choice ONCE DAILY Bariatric Multivitamin Capsule with 45 mg of Iron (90 Count), BariatricVitamin Supplement for Post Bariatric Surgery Gastric Bypass Patients (best holden) on [place] Bariatric Choice on Bruin Brake Cables https://netFactor/ Celebrate https://celebratevitamins.com/ Bariatric Fusion Bariatric Fusion on Shopparity www.bariatricfusion.BeeTV Pair with calcium citrate: Barilife Calcium after bariatric surgery: How much, what kind, where to get it (barilife.BeeTV) Bariatric Fusion Bariatric Calcium Chews on Shopparity Bariatric advantage calcium citrate chews - 3 times a day - $45 for 90 day supply (best flavors) Bariatric Advantage Calcium Chews Citracal chews 3 x's a day GLP-1 Please call your insurance company or look at your online formulary to see if any medications in the GLP-1 drug class are covered (Wegovy, Saxenda, Mounjaro, Ozempic, Victoza, Trulicity) and what, ifany, are the prior authorization requirements. Usually they require a diagnosis of diabetes (diagnosis code E66.9), prediabetes (R73.09), insulin resistance (E88.81) or they require a trial of a different medication such as metformin or Xenical first). Other medications for weight loss that may be on your formulary are Contrave or Qsymia. Please make sure that you Rx benefits card is uploaded to Easy Voyage, most of them are separate from your insurance card. This can expedite our prior authorization process. Here is a Website to see if Wegovy might be covered: [email or web address] Please check with your insurance company to see if any anti-obesity medications are covered under your specific policy. If you insurance plan EXCLUDES anti-obesity medication coverage: FIRST: Discuss this with the compensation and benefits analyst at your job's human resources department (or whereverthe policy is through) and ask them to request an exception through their plan's policy or opt in for obesity medication coverage in their company-wide policy. Contact information for the [place] Substance Abuse Counselor if you would like to file a complaint aboutthe discrimination for the chronic disease of obesity and the lack of access to care. https://gateway.insurance.[place].gov/UI/CAS.CS.Public.UI/Complaint.mvc/DisplayCons umerComplaintForm 3. Go to the obesity action coalition's Website and fill out the online form for access to care issues https://www.obesityaction.org/action-center/wxcmzg-konlfv-ri-care-issues/ 4. Other people to contact: your Senator or House Sulphate Tester. Ask them to support the Treat andReduce Obesity Act which would allow medicate to cover anti-obesity medications. Most insurance companies follow Medicare guidelines in what they will cover. https://www.obesityaction.org/troa/ https://www.congress.gov/members/lxae-iurg-rjuisr Important talking points: [place] obesity Facts https://www.obesityaction.org/wp-content/uploads/Wnye3797.pdf Obesity is associated with over 200 chronic medical conditions including diabetes, heart disease, and at least 13 different types of cancer 93% of those who live with obesity have unmet medical needs There is a 34% increase in medical costs per year in a person affected by obesity over a normal weight person. According to a 2021 study by [employer]avier, [place] ranks at No. 13 in the list of the most obese and overweight states.[place] ranked No. 1 in the highest percentage of overweight children in the nation, No. 9 highest percentage of obese adults, and No. 11 in percentage of adults with hypertension. Nearly half of [facility] (46.7%) are obese, per a new analysis from [facility] at the [facility]. https://www.mytrax.BeeTV/local/monro[place]//opbiy-imxcqla-ndxe-rtmcfa-vu-uws rage METFORMIN Dosing -- Begin Metformin 500 mg [...] (nih.gov) Is metformin a wonder drug? - [facility] Common side effects of this medication include nausea, changes in bowel habits, abdominal discomfort, and flatulence. Taking the medication with food will help. Side effects also typically get betterwith time. Rarely, a severe side effect called [...] MD, clinical director of adult diabetes at [facility], explains why timing metformin HCL [...] night in treating fasting high blood sugar. https://www.The Legally Steal Show.BeeTV/article/966049-qpwn-pn-k-view-xqirqzkdk-aru-yq-pzus-f jhxeyh-qb-qgizb/ Metformin: Patient drug information Warning Rarely, metformin may cause too much lactic acid in the blood (lactic acidosis). The risk is higherin people who have kidney problems, liver problems, heart failure, use alcohol, or take other drugslike topiramate. The risk is also higher in people who are 65 or older and in people who are havingsurgery, an exam or test with contrast, or [...] that does not feel normal, very bad upsetstomach or throwing up, feeling very sleepy, shortness [...] one within the past 48 hours, talk withyour doctor. This is not a list of [...] or change the dose of any drug withoutchecking with your doctor. What are some things I need to know or do while I take this drug? All products: Tell all of your health care providers that you take this drug. This includes your doctors, nurses,pharmacists, and dentists. Talk with your doctor before [...] of stress such as fever, infection, injury, orsurgery. A change in physical activity, exercise, or diet may also affect blood sugar. Follow the diet and workout plan that your doctor told you about. If diarrhea happens or you are throwing up, call your doctor. You will need to drink more fluids tokeep from losing too much fluid. Be careful [...] , plan on getting , or are breast- feeding. You will need to talk about the [...] right away if you have any of thefollowing signs or symptoms that may be related to a very bad side effect: Signs of an allergic reaction, like rash; hives; itching; red, swollen, blistered, or peeling skin with or without fever; wheezing; tightness in the chest or throat; trouble breathing, swallowing, ortalking; unusual hoarseness; or swelling of the mouth, [...] no side effects or only have minor sideeffects. Call your doctor or get medical help [...] all information given to you. Follow all instructionsclosely. All products: Take with meals. Keep taking this drug as you have been told by your doctor or other health care provider, even if you feel well. Extended-release tablets: Take with the evening meal if taking once daily. Swallow whole. Do not chew, break, or crush. If you have trouble swallowing, talk with your doctor. documented in this encounterCenterville07-19-2023 History of Present illness Narrative* Nicole Marquis APRN.SULAIMAN - 10/28/2022 7:00 AM EDT BMI Obesity Medicine PostOp Note- VIRTUAL VISIT October 27, 2022 I have communicated my name and active licensure. The patient's identity and physical location wereverified at the time of this visit. Either the patient or their legal medical collections representative has been informed of the risks and benefits of -- and alternatives to -- treatment through a remote evaluation andconsents to proceed with the evaluation remotely. Index [...] vomiting, dumping syndrome, reactive hypoglycemia, gustatory rhinorrhea, Deniesabdominal pain, constipation, diarrhea, melena, hematochezia, Denies paresthesias, [...] 12/18/2016 2.12 1.00 - 4.00 k/uL Final Hood% 12/18/2016 6.4 % Final Abs Hood 12/18/2016 0.64 0.00 - 0.86 k/uL Final [...] with healthy lifestyle changes and incorporate cardiovascular andresistance training, Discussed weight loss expectations after bariatric [...] lifestyle changes and daily/vitamin intake REFERRALS: BMI forensic analyst LABS: Today: See Epic Orders In 12 months: CBC W DIFF, CMP, Vitamin B1, Vitamin B12, Folate, PTH Intact, Vitamin D25OH, Iron/TIBC/Ferritin, Lipids, and HBA1C DISPOSITION: Return 3 month to Post-op follow up/ individual office visit Nicole Marquis APRN.[facility] Obesity Medicine I spent 25 minutes in the visit, with more than 50% of the total loxw-io-hemz time of the visit in counseling / coordination of care. documented in this encounterCenterville03-18-2021 History of Past illness Narrative* ProblemNoted DateDiagnosed DateResolved DatePersonal history of urinary /ocumented as of this encounter (statuses as of 02/02/2023) [place]03-18-2021 History of Past illness Narrative* ProblemNoted Date Diagnosed DateResolved DatePersonal history of urinary lnglazt3006/27/20203documented as of this encounter (statuses as of 02/04/2023) [place]03-18-2021 History of Past illness Narrative* ProblemNoted Date Diagnosed DateResolved DatePersonal history of urinary oapzzga7406/27/2020/3documented as of this encounter (statuses as of 02/11/2023) [place]03-18-2021 History of Past illness Narrative* ProblemNoted Date Diagnosed DateResolved DatePersonal history of urinary vgyttha4106/27/20203documented as of this encounter (statuses as of 03/24/2023) [place]03-18-2021 History of Past illness Narrative* ProblemNoted Date Diagnosed DateResolved DatePersonal history of urinary nxbtxzj2406/27/20203documented as of this encounter (statuses as of 07/06/2023) [place]03-18-2021 History of Past illness Narrative* ProblemNoted Date Diagnosed DateResolved DatePersonal history of urinary efqdsuz3006/27/20203documented as of this encounter (statuses as of 07/26/2023) [facility] note* Diagnosis Class 1 obesity with body mass index (BMI) of 32.0 to 32.9 in adult, unspecified obesity type, unspecified whether serious comorbidity present- Primary PCOS (polycystic ovarian syndrome) Polycystic ovaries S/P laparoscopic sleeve gastrectomy Bariatric surgery status documented in this encounter [facility] note* Diagnosis Class 1 obesity with body mass index (BMI) of 32.0 to 32.9 in adult, unspecified obesity type, unspecified whether serious comorbidity present- Primary documented in this encounter [facility] note* Diagnosis Class 1 obesity with body mass index (BMI) of 32.0 to 32.9 in adult, unspecified obesity type, unspecified whether serious comorbidity present documented in this encounter [facility] note* Diagnosis Nasal congestion- Primary Other diseases of nasal cavity and sinuses [facility] Diagnosis Class 1 obesity with body mass index (BMI) of 32.0 to 32.9 in adult, unspecified obesity type, unspecified whether serious comorbidity present- Primary documented in this encounter [facility] note* Diagnosis Class 1 obesity with body mass index (BMI) of 32.0 to 32.9 in adult, unspecified obesity type, unspecified whether serious comorbidity present documented in this encounter [facility] note* Diagnosis S/P laparoscopic sleeve gastrectomy- Primary Bariatric surgery status Class 1 obesity with body mass index (BMI) of 32.0 to 32.9 in adult, unspecified obesity type, unspecified whether serious comorbidity present History of hypothyroidism Personal history of other endocrine, metabolic, and immunity disorders documented [facility] this [facility]* Diagnosis Overweight- Primary Mild obstructive sleep apnea Obstructive sleep apnea (adult) (pediatric) [facility]* Diagnosis Class 1 obesity with body mass index (BMI) of 32.0 to 32.9 in adult, unspecified obesity type, unspecified whether serious comorbidity present [facility]* Diagnosis 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 [facility]* Diagnosis Class 1 obesity with body mass index (BMI) of 32.0 to 32.9 in adult, unspecified obesity type, unspecified whether serious comorbidity present [facility]* Diagnosis Hereditary hemochromatosis (HCC)- Primary Hereditary hemochromatosis [facility]* Diagnosis Hereditary hemochromatosis (HCC)- Primary Hereditary hemochromatosis [facility]* Diagnosis Overweight- Primary Mild obstructive sleep apnea Obstructive sleep apnea (adult) (pediatric) [facility]* Diagnosis History of sleeve gastrectomy- Primary Overweight (BMI 25.0-29.9) Overweight Dietary counseling and surveillance Dietary surveillance and counseling documented [facility] this [facility]* Diagnosis Hereditary hemochromatosis (HCC)- Primary Hereditary hemochromatosis [facility]* Diagnosis Acute left otitis media- Primary Fever, unspecified fever cause Wheezing Bronchitis Bronchitis, not specified as acute or chronic [facility] Diagnosis Bronchitis- Primary Bronchitis, not specified as acute or chronic [facility]* Diagnosis Hypokalemia- Primary Hypopotassemia Hereditary hemochromatosis (CMS/HCC) Hereditary hemochromatosis Pneumonia of right lower lobe due to infectious organism [facility]* Diagnosis Low serum calcium- Primary [facility]* Diagnosis Hereditary hemochromatosis (HCC)- Primary Hereditary hemochromatosis [facility]* Diagnosis Overweight- Primary [facility]* Diagnosis Candidiasis- Primary [facility]* Diagnosis Class 1 obesity with body mass index (BMI) of 32.0 to 32.9 in adult, unspecified obesity type, unspecified whether serious comorbidity present documented [facility] this encounter [facility]* Diagnosis Overweight- Primary History of obesity Personal history of other specified diseases Encounter for surgical aftercare following surgery of digestive system Aftercare following surgery of the teeth, oral cavity and digestive system, NEC S/P laparoscopic sleeve gastrectomy Bariatric surgery status documented in this encounter [facility]* Diagnosis Nasal congestion- Primary Other diseases of nasal cavity and sinuses Antibiotic-induced yeast infection Acute non-recurrent pansinusitis documented in this encounter [facility]* Diagnosis Chest congestion- Primary Other symptoms involving respiratory system and chest Viral URI with cough Exposure to influenza Contact with or exposure to other viral diseases Chest congestion Other symptoms involving respiratory system and chest documented in this [facility]* Diagnosis Diarrhea, unspecified type- Primary Upper respiratory tract infection, unspecified type documented in this encounter [facility]* Diagnosis Class 1 obesity with body mass index (BMI) of 32.0 to 32.9 in adult, unspecified obesity type, unspecified whether serious comorbidity present documented in this encounter [facility]* Diagnosis Adjustment disorder with mixed anxiety and depressed mood (CMS/HCC) Adjustment disorder with mixed anxiety and depressed mood Marital problems Counseling for marital and partner problems, unspecified documented in this encounter [facility]* Diagnosis Overweight documented in this encounter [facility]* Diagnosis Adjustment disorder with mixed anxiety and depressed mood (CMS/HCC) Adjustment disorder with mixed anxiety and depressed mood Marital problems Counseling for marital and partner problems, unspecified documented in this encounter [facility]* Diagnosis Adjustment disorder with mixed anxiety and depressed mood (CMS/HCC) Adjustment disorder with mixed anxiety and depressed mood Marital problems Counseling for marital and partner problems, unspecified documented in this encounter [facility]* Diagnosis Class 1 obesity with body mass index (BMI) of 32.0 to 32.9 in adult, unspecified obesity type, unspecified whether serious comorbidity present [facility]* Diagnosis Adjustment disorder with mixed anxiety and depressed mood Adjustment disorder with mixed anxiety and depressed mood Marital problems Counseling for marital and partner problems, unspecified documented in this encounter [facility]* Diagnosis History of obesity- Primary Personal history of other specified diseases S/P laparoscopic sleeve gastrectomy Bariatric surgery status PCOS (polycystic ovarian syndrome) Polycystic ovaries Mild obstructive sleep apnea Obstructive sleep apnea (adult) (pediatric) Overweight documented in this encounter [facility]* Diagnosis Adjustment disorder with mixed anxiety and depressed mood Adjustment disorder with mixed anxiety and depressed mood Marital problems Counseling for marital and partner problems, unspecified [facility]* Diagnosis Adjustment disorder with mixed anxiety and depressed mood Adjustment disorder with mixed anxiety and depressed mood Marital problems Counseling for marital and partner problems, unspecified [facility]* Diagnosis History of obesity- Primary Personal history of other specified diseases [facility] this [facility]* Diagnosis Class 1 obesity with body mass index (BMI) of 32.0 to 32.9 in adult, unspecified obesity type, unspecified whether serious comorbidity present [facility] this encounter [facility]* Diagnosis Adjustment disorder with mixed anxiety and depressed mood Adjustment disorder with mixed anxiety and depressed mood Marital problems Counseling for marital and partner problems, unspecified [facility]* Diagnosis Adjustment disorder with mixed anxiety and depressed mood Adjustment disorder with mixed anxiety and depressed mood Marital problems Counseling for marital and partner problems, unspecified [facility] Diagnosis Adjustment disorder with mixed anxiety and depressed mood Marital problems Counseling for marital and partner problems, unspecified [facility] Diagnosis Need for immunization against influenza- Primary Need for prophylactic vaccination and inoculation against influenza [facility] Diagnosis Marital problems Counseling for marital and partner problems, unspecified Adjustment disorder with mixed anxiety and depressed mood [facility]* Diagnosis Well woman exam with routine gynecological exam Routine gynecological examination Encounter for screening mammogram for malignant neoplasm of breast Uses control [facility]* Diagnosis Marital problems Counseling for marital and partner problems, unspecified Adjustment disorder with mixed anxiety and depressed mood [facility] Diagnosis Marital problems Counseling for marital and partner problems, unspecified Adjustment disorder with mixed anxiety and depressed mood [facility]* Diagnosis Candidiasis- Primary [facility]* Diagnosis Adjustment disorder with mixed anxiety and depressed mood Marital problems Counseling for marital and partner problems, unspecified [facility]Not on filedocumented [facility] Purpose Family History No Family History Records FoundNo Family History Records FoundNo Family History Records FoundNo Family History Records FoundNo Family History Records FoundNo Family History Records FoundNo Family History Records Found Advance Directives TypeDate RecordedPatient RepresentativeExplanationAdvance Directive(s)11/20/2016 2:51 PMTypeDate RecordedPatient RepresentativeExplanationAdvance Directive(s) 11/20/2016 2:51 PM Reason for Referral SpecialtyDiagnoses / ProceduresReferred By ContactReferred To ContactNutrition Diagnoses Class 1 obesity with body mass index (BMI) of 32.0 to 32.9 in adult, unspecified obesity type, unspecified whether serious comorbidity present Procedures CONSULT TO NUTRITION THERAPY MEDICAL NUTRITION ASSMT&IVNTJ INDIV EACH 15 [place] MEDICAL NUTRITION ASSMT&IVNTJ INDIV EACH 15 [place] MEDICAL NUTRITION ASSMT&IVNTJ INDIV EACH 15 [place] MEDICAL NUTRITION ASSMT&IVNTJ INDIV EACH 15 [place] Nicole Marquis APRN.CNP [address] [place] [address] Referral IDStatusReasonStart DateExpiration DateVisits RequestedVisits [id number] PCP Requested Referral [id number] / ProceduresReferred By ContactReferred To Contact Diagnoses Class 1 obesity with body mass index (BMI) of 32.0 to 32.9 in adult, unspecified obesity type, unspecified whether serious comorbidity present Nicole Marquis APRN.OPTOMETRIST ASSISTANT [address] [place] [id number] Referral IDStatusReasonStart DateExpiration DateVisits RequestedVisits [id number] Additional Source Comments INFORMATION SOURCE (unrecogn ized section and content) DATE CREATED AUTHOR 05/19/2021 [facility] DATE CREATED AUTHOR AUTHOR'S ORGANIZ ATION 06/21/2021 [facility] DATE CREATED AUTHOR AUTHOR'S ORGANIZ ATION 09/16/2024 [facility] DATE CREATED AUTHOR AUTHOR'S ORGANIZ ATION 10/05/2024 [facility] DATE CREATED AUTHOR AUTHOR'S ORGANIZ ATION 01/16/2025 [facility] DATE CREATED AUTHOR AUTHOR'S ORGANIZ ATION 01/21/2025 [facility] DATE CREATED AUTHOR AUTHOR'S ORGANIZ ATION 02/22/2025 [facility] EPIC Source Comments (unrecognize d section and content) In the event this informatio n is protected by the Federal Confidentiality of Alcohol and Drug Abuse Patient Records regulations: The Federal rules restrict any use of the information to criminally investigate or prosecute any alcohol or drug abuse patient.[place]ervilleIn the event this information is protected by the Federal Confidentiality of Alcohol and Drug Abuse Patient Records regulations: The Federal rules restrict any use of the information to criminally investigate or prosecute any alcohol or drug abuse patient.[place]ervilleIn the event this information is protected by the Federal Confidentiality of Alcohol and Drug Abuse Patient Records regulations: The Federal rules restrict any use of the information to criminally investigate or prosecute any alcohol or drug abuse patient.[place]ervilleIn the event this information is protected by the Federal Confidentiality of Alcohol and Drug Abuse Patient Records regulations: The Federal rules restrict any use of the information to criminally investigate or prosecute any alcohol or drug abuse patient.[place]ervilleIn the event this information is protected by the Federal Confidentiality of Alcohol and Drug Abuse Patient Records regulations: The Federal rules restrict any use of the information to criminally investigate or prosecute any alcohol or drug abuse patient.[place]ervilleIn the event this information is protected by the Federal Confidentiality of Alcohol and Drug Abuse Patient Records regulations: The Federal rules restrict any use of the information to criminally investigate or prosecute any alcohol or drug abuse patient.CentervilleIn the event this information is protected by the Federal Confidentiality of Alcohol and Drug Abuse Patient Records regulations: The Federal rules restrict any use of the information to criminally investigate or prosecute any alcohol or drug abuse patient.CentervilleIn the event this information is protected by the Federal Confidentiality of Alcohol and Drug Abuse Patient Records regulations: The Federal rules restrict any use of the information to criminally investigate or prosecute any alcohol or drug abuse patient.CentervilleIn the event this information is protected by the Federal Confidentiality of Alcohol and Drug Abuse Patient Records regulations: The Federal rules restrict any use of the information to criminally investigate or prosecute any alcohol or drug abuse patient.CentervilleIn the event this information is protected by the Federal Confidentiality of Alcohol and Drug Abuse Patient Records regulations: The Federal rules restrict any use of the information to criminally investigate or prosecute any alcohol or drug abuse patient.CentervilleIn the event this information is protected by the Federal Confidentiality of Alcohol and Drug Abuse Patient Records regulations: The Federal rules restrict any use of the information to criminally investigate or prosecute any alcohol or drug abuse patient.[place]ervilleIn the event this information is protected by the Federal Confidentiality of Alcohol and Drug Abuse Patient Records regulations: The Federal rules restrict any use of the information to criminally investigate or prosecute any alcohol or drug abuse patient.[place]ervilleIn the event this information is protected by the Federal Confidentiality of Alcohol and Drug Abuse Patient Records regulations: The Federal rules restrict any use of the information to criminally investigate or prosecute any alcohol or drug abuse patient.[place]ervilleIn the event this information is protected by the Federal Confidentiality of Alcohol and Drug Abuse Patient Records regulations: The Federal rules restrict any use of the information to criminally investigate or prosecute any alcohol or drug abuse patient.CentervilleIn the event this information is protected by the Federal Confidentiality of Alcohol and Drug Abuse Patient Records regulations: The Federal rules restrict any use of the information to criminally investigate or prosecute any alcohol or drug abuse patient.[place]ervilleIn the event this information is protected by the Federal Confidentiality of Alcohol and Drug Abuse Patient Records regulations: The Federal rules restrict any use of the information to criminally investigate or prosecute any alcohol or drug abuse patient.CentervilleIn the event this information is protected by the Federal Confidentiality of Alcohol and Drug Abuse Patient Records regulations: The Federal rules restrict any use of the information to criminally investigate or prosecute any alcohol or drug abuse patient.CentervilleIn the event this information is protected by the Federal Confidentiality of Alcohol and Drug Abuse Patient Records regulations: The Federal rules restrict any use of the information to criminally investigate or prosecute any alcohol or drug abuse patient.CentervilleIn the event this information is protected by the Federal Confidentiality of Alcohol and Drug Abuse Patient Records regulations: The Federal rules restrict any use of the information to criminally investigate or prosecute any alcohol or drug abuse patient.CentervilleIn the event this information is protected by the Federal Confidentiality of Alcohol and Drug Abuse Patient Records regulations: The Federal rules restrict any use of the information to criminally investigate or prosecute any alcohol or drug abuse patient.CentervilleIn the event this information is protected by the Federal Confidentiality of Alcohol and Drug Abuse Patient Records regulations: The Federal rules restrict any use of the information to criminally investigate or prosecute any alcohol or drug abuse patient.[place]ervilleIn the event this information is protected by the Federal Confidentiality of Alcohol and Drug Abuse Patient Records regulations: The Federal rules restrict any use of the information to criminally investigate or prosecute any alcohol or drug abuse patient.CentervilleIn the event this information is protected by the Federal Confidentiality of Alcohol and Drug Abuse Patient Records regulations: The Federal rules restrict any use of the information to criminally investigate or prosecute any alcohol or drug abuse patient.[place]ervilleIn the event this information is protected by the Federal Confidentiality of Alcohol and Drug Abuse Patient Records regulations: The Federal rules restrict any use of the information to criminally investigate or prosecute any alcohol or drug abuse patient.[place]ervilleIn the event this information is protected by the Federal Confidentiality of Alcohol and Drug Abuse Patient Records regulations: The Federal rules restrict any use of the information to criminally investigate or prosecute any alcohol or drug abuse patient.[place]ervilleIn the event this information is protected by the Federal Confidentiality of Alcohol and Drug Abuse Patient Records regulations: The Federal rules restrict any use of the information to criminally investigate or prosecute any alcohol or drug abuse patient.[place]ervilleIn the event this information is protected by the Federal Confidentiality of Alcohol and Drug Abuse Patient Records regulations: The Federal rules restrict any use of the information to criminally investigate or prosecute any alcohol or drug abuse patient.[place]ervilleIn the event this information is protected by the Federal Confidentiality of Alcohol and Drug Abuse Patient Records regulations: The Federal rules restrict any use of the information to criminally investigate or prosecute any alcohol or drug abuse patient.[place]ervilleIn the event this information is protected by the Federal Confidentiality of Alcohol and Drug Abuse Patient Records regulations: The Federal rules restrict any use of the information to criminally investigate or prosecute any alcohol or drug abuse patient.[place]ervilleIn the event this information is protected by the Federal Confidentiality of Alcohol and Drug Abuse Patient Records regulations: The Federal rules restrict any use of the information to criminally investigate or prosecute any alcohol or drug abuse patient.[place]ervilleIn the event this information is protected by the Federal Confidentiality of Alcohol and Drug Abuse Patient Records regulations: The Federal rules restrict any use of the information to criminally investigate or prosecute any alcohol or drug abuse patient.[place]ervilleIn the event this information is protected by the Federal Confidentiality of Alcohol and Drug Abuse Patient Records regulations: The Federal rules restrict any use of the information to criminally investigate or prosecute any alcohol or drug abuse patient.[place]ervilleIn the event this information is protected by the Federal Confidentiality of Alcohol and Drug Abuse Patient Records regulations: The Federal rules restrict any use of the information to criminally investigate or prosecute any alcohol or drug abuse patient.[place]ervilleIn the event this information is protected by the Federal Confidentiality of Alcohol and Drug Abuse Patient Records regulations: The Federal rules restrict any use of the information to criminally investigate or prosecute any alcohol or drug abuse patient.[place]ervilleIn the event this information is protected by the Federal Confidentiality of Alcohol and Drug Abuse Patient Records regulations: The Federal rules restrict any use of the information to criminally investigate or prosecute any alcohol or drug abuse patient.[place]ervilleIn the event this information is protected by the Federal Confidentiality of Alcohol and Drug Abuse Patient Records regulations: The Federal rules restrict any use of the information to criminally investigate or prosecute any alcohol or drug abuse patient.[place]ervilleIn the event this information is protected by the Federal Confidentiality of Alcohol and Drug Abuse Patient Records regulations: The Federal rules restrict any use of the information to criminally investigate or prosecute any alcohol or drug abuse patient.[place]ervilleIn the event this information is protected by the Federal Confidentiality of Alcohol and Drug Abuse Patient Records regulations: The Federal rules restrict any use of the information to criminally investigate or prosecute any alcohol or drug abuse patient.[place]ervilleIn the event this information is protected by the Federal Confidentiality of Alcohol and Drug Abuse Patient Records regulations: The Federal rules restrict any use of the information to criminally investigate or prosecute any alcohol or drug abuse patient.[place]ervilleIn the event this information is protected by the Federal Confidentiality of Alcohol and Drug Abuse Patient Records regulations: The Federal rules restrict any use of the information to criminally investigate or prosecute any alcohol or drug abuse patient.[place]ervilleIn the event this information is protected by the Federal Confidentiality of Alcohol and Drug Abuse Patient Records regulations: The Federal rules restrict any use of the information to criminally investigate or prosecute any alcohol or drug abuse patient.[place]ervilleIn the event this information is protected by the Federal Confidentiality of Alcohol and Drug Abuse Patient Records regulations: The Federal rules restrict any use of the information to criminally investigate or prosecute any alcohol or drug abuse patient.[place]ervilleIn the event this information is protected by the Federal Confidentiality of Alcohol and Drug Abuse Patient Records regulations: The Federal rules restrict any use of the information to criminally investigate or prosecute any alcohol or drug abuse patient.CentervilleIn the event this information is protected by the Federal Confidentiality of Alcohol and Drug Abuse Patient Records regulations: The Federal rules restrict any use of the information to criminally investigate or prosecute any alcohol or drug abuse patient.[place] Reason for Visit (unrecogniz ed section and content) ReasonCommentsPost OpReasonOnset DateCommentsRefill Msmyepz5612/18/2022Reason CommentsMed Change RequestReasonCommentsObesityReasonCommentsSinusitisReason Onset DateCommentsRefill Tpdxymn15/25/2024ReasonCommentsRefill RequestReason CommentsObesityF/uReasonCommentsConsultAbnormal LabSpecialtyDiagnoses / ProceduresReferred By ContactReferred To ContactHematology Diagnoses High serum transferrin saturation Procedures CONSULT TO HEMATOLOGY OFFICE/OUTPATIENT NEW HIGH MDM 60 MINUTES Nicole Marquis APRN.OPTOMETRIST ASSISTANT [address] [place] [address] Referral IDStatusReasonStart DateExpiration DateVisits RequestedVisits [id number] PCP Requested Referral [id number] Up Tests ResultsReasonCommentstreatment parametersReasonCommentsPost OpReasonCommentsAssessmentPatient EducationReason CommentsURIReasonCommentsFollow-upReasonOnset DateCommentsRefill Request 04/19/2024ReasonCommentsFacial PainReasonCommentschest congestionReasonComments CoughReasonCommentsAD (Adjustment Disorder)ReasonOnset DateCommentsRefill Dipcpos7307/05/2024ReasonCommentsEstablished PatientFollow up weight management ReasonCommentsAD (Adjustment Disorder)Family ProblemReasonCommentsGynecologic Exam Care Teams (unrecognized sec tion and content) Team MemberRelationshipSpecialtyStart DateEnd Date Mariya Prather [address] [facility] [place] [phone] PCP - GeneralFamily Medicine05/12/16Team MemberRelationshipSpecialtyStart DateEnd Date Mariya Prather [address] [facility] [place] [phone] PCP - GeneralFamily Medicine05/12/16Team MemberRelationshipSpecialtyStart DateEnd Date Mariya Prather [address] [facility] [place] [phone] PCP - GeneralFamily Medicine05/12/16Team MemberRelationshipSpecialtyStart DateEnd Date Mariya Prather [address] [facility] [place] [phone] PCP - GeneralFamily Medicine05/12/16Team MemberRelationshipSpecialtyStart DateEnd Date Mariya Prather [address] [facility] [place] [phone] 813- PCP - GeneralFamily Medicine05/12/16Te MemberRelationshipSpecialtyStart DateEnd Date Mariya Prather [address] [place] [address] PCP - GeneralFamily Medicine05/12/16Team MemberRelationshipSpecialtyStart DateEnd Date Mariya Prather [address] [place] [address] PCP - GeneralFamily Medicine05/12/16Team MemberRelationshipSpecialtyStart DateEnd Date Lakesha Patel NP [address] [place] [address] PCP - Medical [employer]09/10/22 Mariya Prather MD [address] [place] [address] P[facility] - [facility]11/11/22Te MemberRelationshipSpecialtyStart DateEnd Date Lakesha Patel NP [address] [place] [address] PCP - Medical [employer]09/10/22 Mariya Prather MD [address] [place] [address] PCP - Generalmi Medicine11/11/22Team MemberRelationshipSpecialtyStart DateEnd Date Mariya Prather [address] [place] [address] PCP - GeneralFamily Medicine05/12/16Team MemberRelationshipSpecialtyStart DateEnd Date Mariya Prather [address] [place] [address] PCP - GeneralFamily Medicine05/12/16Team MemberRelationshipSpecialtyStart DateEnd Date Mariya Prather [address] [place] [address] PCP - GeneralFamily Medicine05/12/16Team MemberRelationshipSpecialtyStart DateEnd Date Mariya Prather [address] [place] [address] PCP - GeneralFamily Medicine05/12/16Team MemberRelationshipSpecialtyStart DateEnd Date Mariya Prather [address] [place] [address] PCP - GeneralFamily Medicine05/12/16Team MemberRelationshipSpecialtyStart DateEnd Date Mariya Prather [address] [place] [address] PCP - GeneralFamily Medicine05/12/16Team MemberRelationshipSpecialtyStart DateEnd Date Mariya Prather [address] [place] [address] PCP - GeneralFamily Medicine05/12/16Team MemberRelationshipSpecialtyStart DateEnd Date Mariya Prather [address] [place] [address] PCP - GeneralFamily Medicine05/12/16Te MemberRelationshipSpecialtyStart DateEnd Date Mariya Prather [address] [place] [address] PCP - GeneralFamily Medicine05/12/16Team MemberRelationshipSpecialtyStart DateEnd Date Mariya Prather [address] [place] [address] PCP - GeneralFamily Medicine05/12/16Te MemberRelationshipSpecialtyStart DateEnd Date Mariya Prather [address] [place] [address] PCP - GeneralFamily Medicine05/12/16Team MemberRelationshipSpecialtyStart DateEnd Date Mariya Prather [address] [place] [address] PCP - GeneralFamily Medicine05/12/16Team MemberRelationshipSpecialtyStart DateEnd Date Mariya Prather MD [address] [place] [address] PCP - GeneralFamily Medicine11/11/22 Mariya Prather MD [address] [place] [address] PCP - Medical [employer]05/13/2011/Team MemberRelationshipSpecialty Start DateEnd Date Mariya Prather [address] [place] [address] PCP - GeneralFamily Medicine05/12/16Team MemberRelationshipSpecialtyStart DateEnd Date Mariya Prather [address] [place] [address] PCP - GeneralFamily Medicine05/12/16Team MemberRelationshipSpecialtyStart DateEnd Date Mariya Prather [address] [place] [address] PCP - GeneralFamily Medicine05/12/16Te MemberRelationshipSpecialtyStart DateEnd Date Mariya Prather [address] [place] [address] PCP - GeneralFamily Medicine05/12/16Team MemberRelationshipSpecialtyStart DateEnd Date Mariya Prather [address] [place] [address] PCP - GeneralFamily Medicine05/12/16Team MemberRelationshipSpecialtyStart DateEnd Date Mariya Prather MD [address] [place] [address] PCP - GeneralFamily Medicine11/11/22 Mariya Prather MD [address] [place] [address] PCP - Medical [employer]05/13/2011/Team MemberRelationshipSpecialty Start DateEnd Date Mariya Prather MD [address] [place] [address] PCP - GeneralFamily Medicine11/11/22 Mariya Prather MD [address] [place] [address] PCP - Medical [employer]05/13/2011Team MemberRelationshipSpecialty Start DateEnd Date Mariya Prather [address] [place] [address] PCP - [facility] Medicine05/12/16Team MemberRelationshipSpecialtyStart DateEnd Date Mariya Prather MD [address] [place] [address] PCP - Generalmi Medicine11/11/22 Mariya Prather MD [address] [place] [address] PCP - Medical [employer]05/13/2011Team MemberRelationshipSpecialty Start DateEnd Date Mariya Prather MD [address] [place] [address] PCP - GeneralFamily Medicine11/11/22 Mariya Prather MD [address] [place] [address] PCP - Medical [employer]05/13/2011Team MemberRelationshipSpecialty Start DateEnd Date Mariya Prather MD [address] [place] [address] PCP - GeneralFamily Medicine11/11/22 Mariya Prather MD [address] [place] [address] PCP - Medical [employer]05/13/2011Team MemberRelationshipSpecialty Start DateEnd Date Mariya Prather MD [address] [place] [address] PCP - Generalmi Medicine11/11/22 Mariya Prather MD [address] [place] [address] PCP - Medical [employer]05/13/2011Team MemberRelationshipSpecialty Start DateEnd Date Mariya Prather MD [address] [place] [address] PCP - [facility]11/11/22 Mariya Prather MD [address] [place] [address] PCP - Medical [employer]05/13/2011Team MemberRelationshipSpecialty Start DateEnd Date Mariya Prather MD [address] [place] [address] PCP - [facility] Medicine11/11/22 Mariya Prather MD [address] [place] [address] PCP - Medical [employer]05/13/2011Team MemberRelationshipSpecialty Start DateEnd Date Mariya Prather MD [address] [place] [address] PCP - GeneralFamily Medicine11/11/22 Mariya Prather MD [address] [place] [address] PCP - Medical [employer]05/13/2011 Palak Woodson, TOWN CLERK [address] [place] [address], [place] [address] Licensed Practical NurseSaint [facility]'S [facility] [id number]/17/24Team MemberRelationshipSpecialty Start DateEnd Date Mariya Prather [address] [place] [address] PCP - GeneralFamily Medicine05/12/16Team MemberRelationshipSpecialtyStart DateEnd Date Mariya Prather MD [address] [place] [address] PCP - GeneralFamily Medicine11/11/22 Mariya Prather MD [address] [place] [address] PCP - Medical [employer]05/13/2011 Palak Woodson, TOWN CLERK [address] [place] [address] Licensed Practical NurseFamily [id number]/17/24Team MemberRelationshipSpecialty Start DateEnd Date Mariya Prather MD [address] [place] [address] PCP - GeneralFamily Medicine11/11/22 Mariya Prather MD [address] [place] [address] PCP - Medical [employer]05/13/2011 Palak Woodson, TOWN CLERK [address] [place] [address], [place] [address] Licensed Practical NurseFamily [id number]/17/24Team MemberRelationshipSpecialty Start DateEnd Date Mariya Prather MD [address] [facility] [place] [address] PCP - GeneralFamily Medicine11/11/22 Mariya Prather MD [address] [facility] [place] [address] PCP - Medical [employer]05/13/2011Team MemberRelationshipSpecialty Start DateEnd Date Mariya Prather MD [address] [place] [address] PCP - GeneralFamily Medicine11/11/22 Mariya Prather MD [address] [facility] [place] [address] PCP - Medical [employer]05/13/2011Team MemberRelationshipSpecialty Start DateEnd Date Mariya Prather [address] [place] [address] PCP - GeneralFamily Medicine05/12/16Team MemberRelationshipSpecialtyStart DateEnd Date Mariya Prather MD [address] [place] [address] PCP - GeneralFamily Medicine11/11/22 Mariya Prather MD [address] [place] [address] PCP - Medical [employer]05/13/2011Team MemberRelationshipSpecialty Start DateEnd Date Mariya Prather MD [address] [place] [address] [facility] - [facility]11/11/22 Mariya Prather MD [address] [place] [address] PCP - Medical [employer]05/13/2011Team MemberRelationshipSpecialty Start DateEnd Date Mariya Prather MD [address] [place] [address] PCP - [facility]11/11/22 Mariya Prather MD [address] [place] [address] PCP - Medical [employer]05/13/2011 Nam Pickens [facility]10/09/24Team MemberRelationshipSpecialtyStart DateEnd Date Mariya Prather MD [address] [place] [address] [facility]11/11/22 Mariya Prather MD [address] [place] [address] PCP - Medical [employer]05/13/2011 Nam Pickens LPC [facility]10/09/24Team MemberRelationshipSpecialtyStart DateEnd Date Mariya Prather [address] [place] [address] PCP - GeneralFamily Medicine05/12/16Te MemberRelationshipSpecialtyStart DateEnd Date Mariya Prather MD [address] [place] [address] PCP - GeneralFamily Medicine11/11/22 Mariya Prather MD [address] [place] [address] PCP - Medical [employer]05/13/2011 Nam Pickens LPC [facility]10/09/24Team MemberRelationshipSpecialtyStart DateEnd Date Mariya Prather MD [address] [place] [address] PCP - GeneralFamily Medicine11/11/22 Mariya Prather MD [address] [place] [address] PCP - Medical [employer]05/13/2011 Nam Pickens LPC [facility]10/09/24Team MemberRelationshipSpecialtyStart DateEnd Date Mariya Prather MD [address] [place] [address] PCP - GeneralFamily Medicine11/11/22 Mariya Prather MD [address] [place] [address] PCP - Medical [employer]05/13/2011 Nam Pickens [facility] TherapistBehavioral Health10/09/24Team MemberRelationshipSpecialtyStart DateEnd Date Mariya Prather MD [address] [place] [address] PCP - GeneralFamily Medicine11/11/22 Mariya Prather MD [address] [place] [address] PCP - Medical [employer]05/13/2011 Nam Pickens [facility] TherapistBehavioral Health10/09/24Team MemberRelationshipSpecialtyStart DateEnd Date Mariya Prather MD [address] [place] [phone] PCP - GeneralFamily Medicine05/12/16Team MemberRelationshipSpecialtyStart DateEnd Date Mariya Prather MD [address] [place] [phone] PCP - GeneralFamily Medicine05/12/16Team MemberRelationshipSpecialtyStart DateEnd Date Mariya Prather MD [address] [place] [address] PCP - GeneralFamily Medicine11/11/22 Mariya Prather MD [address] [place] [address] PCP - Medical [employer]05/13/2011 Nam Pickens LPC [facility]10/09/24Team MemberRelationshipSpecialtyStart DateEnd Date Mariya Prather MD [address] [place] [address] PCP - GeneralFamily Medicine11/11/22 Mariya Prather MD [address] [place] [address] PCP - Medical [employer]05/13/2011 Nam Pickens LPC The[facility]Behavior[facility]10/09/24Team MemberRelationshipSpecialtyStart DateEnd Date Mariya Prather MD [address] [place] [address] PCP - GeneralFamily Medicine11/11/22 Nam Pickens LPC [facility]Behavior[facility]10/09/24Team MemberRelationshipSpecialtyStart DateEnd Date Mariya Prather MD [address] [place] [address] PCP - GeneralFamily Medicine11/11/22 Nam Pickens LPC [facility]10/09/24Team MemberRelationshipSpecialtyStart DateEnd Date Mariya Prather MD [address] [place] [address] PCP - GeneralFamily Medicine11/11/22 Nam Pickens [employer] TherapistBehavioral Health10/09/24Team MemberRelationshipSpecialtyStart DateEnd Date Mariya Prather MD [address] [place] [address] PCP - GeneralFamily [id number]/28/19Team MemberRelationshipSpecialtyStart Date End Date Mariya Prather MD [address] [place] [address] PCP - GeneralFamily Medicine11/11/22 Nam Pickens LPC [facility]Behavior[facility] Health10/09/24Team MemberRelationshipSpecialtyStart DateEnd Date Mariya Prather MD [address] [place] [address] PCP - GeneralFamily Medicine11/11/22 Nam Pickens LPC [facility]Behavior[facility] Health10/09/24Team MemberRelationshipSpecialtyStart DateEnd Date Mariya Prather MD [address] [place] [address] PCP - GeneralFamily Medicine11/11/22 Nam Pickens LPC TherapistBehavioral Health10/09/24Team MemberRelationshipSpecialtyStart DateEnd Date Mariya Prather MD [address] [place] [address] PCP - GeneralFamily Medicine11/11/22 Nam Pickens LPC The[facility]istBehavioral Health10/09/24Team MemberRelationshipSpecialtyStart DateEnd Date Mariya Prather MD [address] [place] [address] PCP - [facility] Medicine11/11/22 Nam Pickens LPC TherapistBehavioral Health10/09/24Te MemberRelationshipSpecialtyStart DateEnd Date Mariya Prather MD [address] [place] [address] PCP - [facility]11/11/22 Nam Pickens LPC TherapistBehavioral [facility]10/09/24Te MemberRelationshipSpecialtyStart DateEnd Date Mariya Prather MD [address] [facility] [place] [address] PCP - [facility]11/11/22 Nam Pickens LPC [facility]rap[facility]BeJames [facility]10/09/24 FOR RECORDS PERTAINING TO PATIENTS WHO ARE [...] BE BASED ON THE PRIMARY CLINICAL RECORDS. [facility] [facility]. provides no warranty or guarantee of the accuracy or completeness of information in this document.
== END 2025-03-06 13:35 | disposition home or self-care (01) ==
LOC: LAB 13:34
PROVIDERS: Visit Provider Obstetrics & Gynecology
DX: R87.610 Atypical squamous cells of undetermined significance on cytologic smear of cervix (ASC-US) (principal)
CPT/HCPCS: 88305